=== PATIENT | female | born 1950 | race Caucasian/White ===

== ENCOUNTER → 2017-04-20 | Outpatient (CLI) | payer MEDICARE, BC ==
[2017-02-08 09:00] VITALS: BP 177/90
[~2017-04-20] MED LIST: ACET-704 PO; ACET500T68 PO; ASCO60LO PO; AZIT200S4 PO; AZIT250T6 PO; BACL10TA PO; CHOL200074 PO; CRAN1CAP13 PO; CRAN400C PO; DIAZ2TAB PO; DIAZ2TAB3 PO; DILT30TA PO; DILT60TA PO; DILT60TA3 PO; DOCU-109 PO; DORN1SOL IH; ESTR-9 TD; ESTR1PAT67 TD; FAMO-63 PO; FAMO40TA57 PO; HYDR-2758 PO; HYDR1TAB12 PO; LEVALBUTER0.63 MG/3 IH; LEVE100S8 PO; LEVE500T56 PO; LEVO500T59 PO; METH4TAB2 PO; METO-239 PO; METO25TA4 PO; MODA200T31 PO; MULT-208 PO; NA P RC; NITR50CA PO; NORE0.356 PO; NYST60PO TP; PARO10OR3 PO; POLY17PO29 PO; PRAV20TA2 PO; SCOP1PAT TD; SILV480G TP; TIOT18CA IH; VIT1TABL65 PO; XOPENEX0.63 MG/3 NEB; [UNRECOGNIZED DRUG - CODE] PO
--- NOTE | 2017-04-20 15:06 | RAD ---
Ultrasound kidneys Indication: Neurogenic bladder Technique: Grayscale and color Doppler images of the kidneys. Comparison: None Findings: Right kidney is surgically absent. Left kidney demonstrates manager specialty hypertrophy and measures 15.5 x 5.0 x 6.6 cm. The corticomedullary differentiation is preserved. Bladder is nondistended limiting evaluation. No abnormal findings in the right renal fossa. Impression: Status post right nephrectomy. Left kidney within normal limits. Suboptimal evaluation of bladder due to nondistention.
== END | disposition home or self-care (01) ==
LOC: US 13:46
PROVIDERS: ATTEND Urology
DX: N31.2 Flaccid neuropathic bladder, not elsewhere classified (principal); Z90.5 Acquired absence of kidney
CPT/HCPCS: 76775

== ENCOUNTER → 2017-04-20 | Outpatient (CLI) | payer MEDICARE, BC ==
[2017-02-08 09:00] VITALS: BP 177/90
[~2017-04-20] MED LIST changes: +GADOBUTROL 7.5 MMOL/7.5 ML VIAL IV ONE
--- NOTE | 2017-04-20 16:28 | RAD ---
MR of the skeletal pelvis with and without contrast HISTORY: Open decubitus ulcer with known infection on the left. TECHNIQUE: Routine multiplanar sequences are obtained. FINDINGS: There is a soft tissue defect in the left posterior decubitus region compatible with the patient's known ulcer. There is a small fluid pocket deep to this defect and extending to the cortical surface of the left ischium. This measures 2.5 cm x 3.2 cm x 2.4 cm. The cortex at this aspect of the ischium is poorly defined, and there is mild marrow edema. There is subtle loss of fatty marrow signal on the T1-weighted sequences, and findings are suspicious for mild osteomyelitis. There is a small linear signal abnormality at the right decubitus region extending to the ischium could represent an old ulcer or scarring. No abscess or bone destruction on the right. There is metal artifact at the anterior aspect of the right pelvis No significant hip effusion. The visualized major tendon attachments appear intact. The urinary bladder contains a Smalls catheter. Barely visualized lower lumbar spine demonstrates spondylosis. IMPRESSION: Left decubitus ulcer with an underlying small fluid collection or abscess. This collection extends to the cortical surface of the ischium where findings are suspicious for mild osteomyelitis. Electronically signed by: Juan Pablo Dsouza MD (04/20/2017 4:26 PM) [facility]
== END | disposition home or self-care (01) ==
LOC: MRI 14:19
PROVIDERS: ATTEND Surgery
DX: E11.622 Type 2 diabetes mellitus with other skin ulcer (principal); L98.499 Non-pressure chronic ulcer of skin of other sites with unspecified severity; M47.896 Other spondylosis, lumbar region
CPT/HCPCS: 72195

== ENCOUNTER 2017-07-18 12:46 | Emergency (ER) | payer MEDICARE, BC ==
[2017-07-18 13:20] LABS: BILIRUBIN,URINE NEGATIVE (NEG); GLUCOSE,URINE NEGATIVE (NEG); NITRITE,URINE NEGATIVE (NEG); PROTEIN,URINE 30 mg/dL (NEG-TRACE); UROBILINOGEN,URINE 0.2 mg/dL (0.2 mg/dL)
[2017-07-18 13:35] LABS: BACTERIA,URINE MODERATE /HPF (0-FEW); WBC,URINE TNTC /HPF (0-4)
[2017-07-18 15:06] LABS: ADD MAN DIFF? NO
[2017-07-18 15:18] LABS: BASO # 0.1 x10^3/uL (0.0-0.2); BASO % 1 % (0-3); EOS % 2 % (0-3); HEMATOCRIT 37.6 % (36.0-47.0); HEMOGLOBIN 12.2 g/dL (12.0-15.5); LYMPH # 1.2 x10^3/uL (1.0-4.8); LYMPH % 15 % (24-48); MEAN CORPUSCULAR HEMOGLOBIN 28 pg (25-35); MEAN CORPUSCULAR HGB CONC 32 g/dL (31-37); MEAN CORPUSCULAR VOLUME 86 fL (79-100); MONO % 6 % (0-9); NEUT % 76 % (31-73); PLATELET COUNT 445 x10^3/uL (140-400); RED BLOOD COUNT 4.39 x10^6/uL (3.50-5.40); RED CELL DISTRIBUTION WIDTH 15.3 % (11.5-14.5); WHITE BLOOD COUNT 8.2 x10^3/uL (4.0-11.0)
[2017-07-18 15:23] LABS: ANION GAP 6 (6-14); BLOOD UREA NITROGEN 31 mg/dL (7-20); BUN/CREATININE RATIO 103 (6-20); CALCIUM 9.8 mg/dL (8.5-10.1); CARBON DIOXIDE 34 mmol/L (21-32); CHLORIDE 101 mmol/L (98-107); CREATININE 0.3 mg/dL (0.6-1.0); GFR 223.3; GLUCOSE 111 mg/dL (70-99); POTASSIUM 4.5 mmol/L (3.5-5.1); SODIUM 141 mmol/L (136-145)
[2017-07-18 15:29] LABS: ALBUMIN 2.6 g/dL (3.4-5.0); ALBUMIN/GLOBULIN RATIO 0.4 (1.0-1.7); ALK PHOS 80 U/L (46-116); ALT (SGPT) 23 U/L (14-59); AST (SGOT) 20 U/L (15-37); TOTAL BILIRUBIN 0.2 mg/dL (0.2-1.0); TOTAL PROTEIN 8.4 g/dL (6.4-8.2)
[2017-07-18 15:47] LABS: TROPONINI < 0.017 ng/mL (0.000-0.055)
== END 2017-07-18 18:38 | disposition home or self-care (01) ==
LOC: ER 12:46
DX: R09.02 Hypoxemia (principal); R07.89 Other chest pain; R22.2 Localized swelling, mass and lump, trunk; I10 Essential (primary) hypertension; G35 Multiple sclerosis; Z93.0 Tracheostomy status; Z93.3 Colostomy status
CPT/HCPCS: 36415; 71010; 80053; 81001; 84484; 85025; 87086; 93005; 99285-25

== ENCOUNTER 2017-09-23 10:51 | Emergency (ER) | payer MEDICARE, BC ==
[2017-09-23] MEDS: BACITRACIN TOPICAL OINT 14GM TUBE. TP (12:29)
== END 2017-09-23 13:37 | disposition home or self-care (01) ==
LOC: ER 10:51
DX: K94.22 Gastrostomy infection (principal); L03.311 Cellulitis of abdominal wall; I10 Essential (primary) hypertension; Z93.0 Tracheostomy status; Z90.49 Acquired absence of other specified parts of digestive tract
CPT/HCPCS: 99283

== ENCOUNTER 2018-01-06 14:19 | Emergency (ER) | payer MEDICARE, BC ==
[2018-01-06 15:31] LABS: BASE EXCESS ABG 7 mmol/L (-3-3); HCO3 ABG 32 mmol/L (21-28); PO2 ABG 59 mmHg (65-108); SAT O2 ABG 92 % (92-99)
[2018-01-06 15:50] LABS: PCO2 ABG 51 mmHg (35-46); PH ABG 7.42 (7.35-7.45)
[2018-01-06 16:11] LABS: ADD MAN DIFF? NO
[2018-01-06 16:15] LABS: BASO % 1 % (0-3); EOS # 0.2 x10^3/uL (0.0-0.7); EOS % 3 % (0-3); HEMATOCRIT 40.5 % (36.0-47.0); HEMOGLOBIN 13.4 g/dL (12.0-15.5); LYMPH # 1.3 x10^3/uL (1.0-4.8); LYMPH % 20 % (24-48); MEAN CORPUSCULAR HEMOGLOBIN 29 pg (25-35); MEAN CORPUSCULAR HGB CONC 33 g/dL (31-37); MEAN CORPUSCULAR VOLUME 88 fL (79-100); MONO # 0.5 x10^3/uL (0.0-1.1); MONO % 7 % (0-9); NEUT # 4.6 x10^3uL (1.8-7.7); NEUT % 70 % (31-73); PLATELET COUNT 312 x10^3/uL (140-400); RED BLOOD COUNT 4.59 x10^6/uL (3.50-5.40); RED CELL DISTRIBUTION WIDTH 15.9 % (11.5-14.5); WHITE BLOOD COUNT 6.6 x10^3/uL (4.0-11.0)
[2018-01-06 16:25] LABS: PROTHROMBIN TIME PATIENT 12.4 SEC (11.7-14.0)
[2018-01-06 16:26] LABS: ANION GAP 5 (6-14); BLOOD UREA NITROGEN 31 mg/dL (7-20); BUN/CREATININE RATIO 78 (6-20); CALCIUM 9.4 mg/dL (8.5-10.1); CARBON DIOXIDE 36 mmol/L (21-32); CHLORIDE 100 mmol/L (98-107); CREATININE 0.4 mg/dL (0.6-1.0); GFR 159.7; GLUCOSE 129 mg/dL (70-99); SODIUM 141 mmol/L (136-145)
[2018-01-06 16:36] LABS: TROPONINI < 0.017 ng/mL (0.000-0.055)
[2018-01-06 16:38] LABS: ALBUMIN 3.4 g/dL (3.4-5.0); ALBUMIN/GLOBULIN RATIO 0.7 (1.0-1.7); ALK PHOS 65 U/L (46-116); ALT (SGPT) 40 U/L (14-59); AST (SGOT) 24 U/L (15-37); TOTAL BILIRUBIN 0.3 mg/dL (0.2-1.0); TOTAL PROTEIN 8.3 g/dL (6.4-8.2)
[2018-01-06 16:38] LABS: NT-PRO BNP 22 pg/mL (0-124)
[2018-01-06 16:43] LABS: LACTIC ACID 2.1 mmol/L (0.4-2.0)
== END 2018-01-06 18:11 | disposition home or self-care (01) ==
LOC: ER 14:19
DX: R09.02 Hypoxemia (principal); G35 Multiple sclerosis; I10 Essential (primary) hypertension; Z87.09 Personal history of other diseases of the respiratory system; Z93.3 Colostomy status; Z93.0 Tracheostomy status
CPT/HCPCS: 36415; 36600; 71045; 80053; 82805; 83605; 83880; 84484; 85025; 85610; 93005; 99285-25

== ENCOUNTER 2018-02-24 09:55 | Outpatient (CLI) | payer MEDICARE, BC ==
[2018-02-24] MEDS ORDERED: LIDOCAINE WITH 8.4% SOD BICARB 3 ML DISP.SYRIN. (11:34)
[2018-02-24] MEDS ORDERED: IOHEXOL 240 MG/ML 50ML VIAL. (11:34)
[2018-02-24] MEDS: IOHEXOL 240 MG/ML 50ML VIAL. IJ (11:43)
[2018-02-24] MEDS ORDERED: CONTRAST GIVEN. MC (11:45)
== END 2018-02-24 12:11 | disposition home or self-care (01) ==
LOC: INTRAD 09:55
DX: Z46.59 Encounter for fitting and adjustment of other gastrointestinal appliance and device (principal); I10 Essential (primary) hypertension; E78.00 Pure hypercholesterolemia, unspecified; I48.91 Unspecified atrial fibrillation; F03.90 Unspecified dementia, unspecified severity, without behavioral disturbance, psychotic disturbance, mood disturbance, and anxiety; H35.00 Unspecified background retinopathy; G35 Multiple sclerosis; Z87.01 Personal history of pneumonia (recurrent); Z93.0 Tracheostomy status; Z90.49 Acquired absence of other specified parts of digestive tract; Z87.440 Personal history of urinary (tract) infections; Z90.5 Acquired absence of kidney; F32.9 Major depressive disorder, single episode, unspecified; Z86.14 Personal history of Methicillin resistant Staphylococcus aureus infection; Z82.49 Family history of ischemic heart disease and other diseases of the circulatory system; Z79.2 Long term (current) use of antibiotics; Z79.899 Other long term (current) drug therapy; Z93.3 Colostomy status
CPT/HCPCS: 49450; C1769; Q9966

== ENCOUNTER 2018-10-25 17:23 | Inpatient (IN) | payer MEDICARE, BC ==
[~2018-10-25] VITALS: Ht 157.5 cm; Wt 69.5 kg
[~2018-10-25 17:23] MED LIST changes: +CEPH250S30 PO; -GADOBUTROL 7.5 MMOL/7.5 ML VIAL IV ONE; -HYDR-2758 PO; +HYDR-2761 PO; -HYDR1TAB12 PO; +HYDR1TAB13 PO; +LEVO750T31 PO; -SCOP1PAT TD; +SCOP1PAT11 TD
[2018-10-25] MEDS ORDERED: IV NORMAL SALINE 1000ML BAG 1,000 ML IV SCH (17:28)
[2018-10-25] MEDS ORDERED: IPRATRPIUM/ALBUTEROL 0.5/2.5MG 3 ML NEBU. NEB ONE (17:30)
[2018-10-25] MEDS ORDERED: methylPREDNISolone SOD SUCC PF 125 MG/2 ML VIAL. IV ONE (17:30)
[2018-10-25 17:46] LABS: BASO % 1 % (0-3); EOS % 0 % (0-3); HEMOGLOBIN 13.3 g/dL (12.0-15.5); LYMPH # 0.7 x10^3/uL (1.0-4.8); LYMPH % 10 % (24-48); MEAN CORPUSCULAR HEMOGLOBIN 30 pg (25-35); MEAN CORPUSCULAR HGB CONC 32 g/dL (31-37); MEAN CORPUSCULAR VOLUME 95 fL (79-100); MONO # 0.5 x10^3/uL (0.0-1.1); MONO % 6 % (0-9); NEUT # 6.1 x10^3uL (1.8-7.7); NEUT % 83 % (31-73); PLATELET COUNT 271 x10^3/uL (140-400); RED BLOOD COUNT 4.42 x10^6/uL (3.50-5.40); RED CELL DISTRIBUTION WIDTH 15.1 % (11.5-14.5); WHITE BLOOD COUNT 7.4 x10^3/uL (4.0-11.0)
[2018-10-25 17:58] LABS: BLOOD UREA NITROGEN 24 mg/dL (7-20); BUN/CREATININE RATIO 80 (6-20); CALCIUM 9.4 mg/dL (8.5-10.1); CHLORIDE 97 mmol/L (98-107); CREATININE 0.3 mg/dL (0.6-1.0); GFR 221.9; GLUCOSE 152 mg/dL (70-99); POTASSIUM 4.2 mmol/L (3.5-5.1); SODIUM 144 mmol/L (136-145)
[2018-10-25 18:03] LABS: CARBON DIOXIDE > 45 mmol/L (21-32)
[2018-10-25 18:03] LABS: BILIRUBIN,URINE NEGATIVE (NEG); CLARITY,URINE TURBID; COLOR,URINE RED; NITRITE,URINE POSITIVE (NEG); PROTEIN,URINE 100 mg/dL (NEG-TRACE)
[2018-10-25 18:04] LABS: ALBUMIN 3.1 g/dL (3.4-5.0); ALBUMIN/GLOBULIN RATIO 0.6 (1.0-1.7); ALK PHOS 82 U/L (46-116); ALT (SGPT) 21 U/L (14-59); AST (SGOT) 19 U/L (15-37); TOTAL BILIRUBIN 0.2 mg/dL (0.2-1.0)
--- NOTE | 2018-10-25 18:04 | PHYS DOC ---
Past Medical History Past Medical History: Hypertension, Other Additional Past Medical Histor: MS, respiratory failure, tracheostomy, excess secretions, possible seizures (COLBY IVERSON MD) Past Surgical History: Other Additional Past Surgical Histo: feeding tube,baclofen pump,flap surgeries, tracheostomy,COLOSTOMY, 1 kidney, (COLBY IVERSON MD) Alcohol Use: None Drug Use: None (COLBY IVERSON MD) Adult General Chief Complaint Chief Complaint: WEAKNESS/GENERALIZED HPI HPI Patient is a 68 year old female patient with history of advanced MS with tracheostomy tube in place brought in by EMS because of hypoxia and generalized weakness. Patient lives at home with high efficiency care from her mother called 911 today regarding hypoxia at 70s and decrease of orientation and alertness for the last 2 weeks. EMS reported that patient had O2 sat of 70s on 2 L of oxygen that improved to low 90s with 2 L of oxygen. Patient is nonverbal and unable to give history. (COLBY IVERSON MD) Review of Systems Review of Systems Unable to obtain because of nonverbal patient (COLBY IVERSON MD) Current Medications Current Medications Current Medications Medications (Trade) Dose Ordered Sig/Lidia Start Time Stop Time Status Last Admin Dose Admin Albuterol/ Ipratropium (Duoneb) 3 ml 1X ONCE 10/25/18 17:30 10/25/18 17:31 DC 10/25/18 17:53 3 ML Ceftriaxone Sodium (Rocephin) 1 gm 1X ONCE 10/25/18 19:00 10/25/18 19:02 DC 10/25/18 20:24 1 GM Methylprednisolone Sodium Succinate (SOLU-Medrol 125MG VIAL) 125 mg 1X ONCE 10/25/18 17:30 10/25/18 17:31 DC 10/25/18 19:04 125 MG Ondansetron HCl (Zofran) 4 mg PRN Q8HRS PRN 10/25/18 20:15 10/26/18 20:14 Sodium Chloride 1,000 ml @ 126 mls/hr [id number] 10/25/18 20:07 10/26/18 20:06 (JET SERRATO DO) Allergies Allergies Allergies Coded Allergies Type Severity Reaction Last Updated Verified No Known Drug Allergies 01/05/15 No (JET SERRATO DO) Physical Exam Physical Exam Constitutional: Well nourished, mild distress, non-toxic appearance, afebrile, nonverbal. [] HENT: Normocephalic, atraumatic Neck: Normal range of motion, tracheostomy tube in place, no tenderness, supple , no stridor. [] Cardiovascular:Heart rate regular rhythm, no murmur [] Lungs & Thorax: Bilateral rhonchi without respiratory distress Abdomen: Bowel sounds normal, soft, no tenderness, no masses, no pulsatile masses. [] Skin: Warm, dry, no erythema, no rash. [] Back: No tenderness, no CVA tenderness. [] Extremities: Not moving extremities Neurologic: Awake, nonverbal, (COLBY IVERSON MD) Current Patient Data Vital Signs Vital Signs Date Time Temp Pulse Resp B/P (MAP) Pulse Ox O2 Delivery O2 Flow Rate FiO2 10/25/18 18:03 97 Tracheal Collar 12.0 10/25/18 17:23 97.5 77 13 127/53 (77) 97.5 (JET SERRATO DO) Lab Values Laboratory Tests Test 10/25/18 17:35 10/25/18 17:52 10/25/18 19:48 White Blood Count 7.4 x10^3/uL (4.0-11.0) Red Blood Count 4.42 x10^6/uL (3.50-5.40) Hemoglobin 13.3 g/dL (12.0-15.5) Hematocrit 42.0 % (36.0-47.0) Mean Corpuscular Volume 95 fL (79-100) Mean Corpuscular Hemoglobin 30 pg (25-35) Mean Corpuscular Hemoglobin Concent 32 g/dL (31-37) Red Cell Distribution Width 15.1 % (11.5-14.5) H Platelet Count 271 x10^3/uL (140-400) Neutrophils (%) (Auto) 83 % (31-73) H Lymphocytes (%) (Auto) 10 % (24-48) L Monocytes (%) (Auto) 6 % (0-9) Eosinophils (%) (Auto) 0 % (0-3) Basophils (%) (Auto) 1 % (0-3) Neutrophils # (Auto) 6.1 x10^3uL (1.8-7.7) Lymphocytes # (Auto) 0.7 x10^3/uL (1.0-4.8) L Monocytes # (Auto) 0.5 x10^3/uL (0.0-1.1) Eosinophils # (Auto) 0.0 x10^3/uL (0.0-0.7) Basophils # (Auto) 0.0 x10^3/uL (0.0-0.2) Sodium Level 144 mmol/L (136-145) Potassium Level 4.2 mmol/L (3.5-5.1) Chloride Level 97 mmol/L (98-107) L Carbon Dioxide Level > 45 mmol/L (21-32) H Anion Gap (6-14) Blood Urea Nitrogen 24 mg/dL (7-20) H Creatinine 0.3 mg/dL (0.6-1.0) L Estimated GFR (Cockcroft-Gault) 221.9 BUN/Creatinine Ratio 80 (6-20) H Glucose Level 152 mg/dL (70-99) H Lactic Acid Level 1.8 mmol/L (0.4-2.0) Calcium Level 9.4 mg/dL (8.5-10.1) Total Bilirubin 0.2 mg/dL (0.2-1.0) Aspartate Amino Transferase (AST) 19 U/L (15-37) Alanine Aminotransferase (ALT) 21 U/L (14-59) Alkaline Phosphatase 82 U/L (46-116) Troponin I Quantitative < 0.017 ng/mL (0.000-0.055) ZK-Aoj-O-Type Natriuretic Peptide 48 pg/mL (0-124) Total Protein 8.0 g/dL (6.4-8.2) Albumin 3.1 g/dL (3.4-5.0) L Albumin/Globulin Ratio 0.6 (1.0-1.7) L Urine Collection Type U cath Urine Color Red Urine Clarity Turbid Urine pH 6.0 Urine Specific [place] 1.025 Urine Protein 100 mg/dL (NEG-TRACE) Urine Glucose (UA) Negative mg/dL (NEG) Urine Ketones (Stick) Trace mg/dL (NEG) Urine Blood Large (NEG) Urine Nitrite Positive (NEG) Urine Bilirubin Negative (NEG) Urine Urobilinogen Dipstick 1.0 mg/dL (0.2 mg/dL) Urine Leukocyte Esterase Large (NEG) Urine RBC Tntc /HPF (0-2) Urine WBC >40 /HPF (0-4) Urine Squamous Epithelial Cells None /LPF Urine Bacteria Many /HPF (0-FEW) O2 Saturation 91 % (92-99) L Arterial Blood pH 7.34 (7.35-7.45) L Arterial Blood pH (Temp corrected) 7.35 Arterial Blood pCO2 at Patient Temp 106 mmHg (35-46) *H Arterial Blood pCO2 (Temp correct) 103 mmHg Arterial Blood pO2 at Patient Temp 64 mmHg (65-108) L Arterial Blood pO2 (Temp corrected) 61 mmHg Arterial Blood HCO3 56 mmol/L (21-28) H Arterial Blood Base Excess 24 mmol/L (-3-3) H FiO2 50 Laboratory Tests 10/25/18 17:35 Laboratory Tests 10/25/18 17:35 (JET SERRATO DO) EKG EKG [] (COLBY IVERSON MD) Radiology/Procedures Radiology/Procedures [] (COLBY IVERSON MD) Impressions: STATUS: REG ERORD. PHYSICIAN: COLBY IVERSON MD REASON: shortness of breath and hypoxia PROCEDURE: PORTABLE CHEST 1V PORTABLE CHEST 1V Clinical Indication: ER PATIENT. WEAKNESS, SHORTNESS OF AIR, ALTERED MENTAL STATUS. Hx TRACHEOSTOMY, HTN. Comparison: AP chest, January 06. Findings: Tracheostomy is in stable position. There are low lung volumes. The cardiomediastinal silhouette is stable. There are moderate bilateral pleural effusions. There is mild pulmonary vascular congestion. There are bilateral lower lobe airspace opacities. No pneumothorax. Bones appear stable. IMPRESSION: 1. Low lung volumes. 2. Moderate bilateral pleural effusions. Bilateral lower lobe airspace disease. 3. Mild pulmonary vascular congestion. (JET SERRATO DO) Course & Med Decision Making Course & Med Decision Making Pertinent Labs and Imaging studies are pending. Evaluation of patient in ER showed 68-year-old female patient with history of advanced MS brought in by EMS because of hypoxia and decrease of orientation. Patient care transferred to Dr. Serrato at 1800. (COLBY IVERSON MD) Course & Med Decision Making CRITICAL CARE: Time spent was 35 minutes. This includes medical management, evaluation, reevaluation, discussion with consultants and family. Critical Care does NOT include time spent on separately billed procedures. Patient had an ABG performed which showed a CO2 of greater than 100 then the uncuffed trach was treated out with a 4 uncuffed trach however we were unable to get appropriate tidal volumes on the ventilator so we will need to try a 5. We were unsuccessful getting 6 cuffed trach in (JET SERRATO DO) Dragon Disclaimer Dragon Disclaimer This electronic medical record was generated, in whole or in part, using a voice recognition dictation system. (COLBY IVERSON MD) Departure Departure Impression: Primary Impression: Hypercapnic respiratory failure Additional Impression: Altered mental status Disposition: ADMITTED INPATIENT Admitting Physician: Kiki Mosquera (JET SERRATO DO) Condition: GRAVE Referrals: JESSICA PAINTING MD (PCP) Problem Qualifiers Primary Impression: Hypercapnic respiratory failure Chronicity: acute on chronic Qualified Codes: J96.22 - Acute and chronic respiratory failure with hypercapnia Additional Impression: Altered mental status Altered mental status type: unspecified Qualified Codes: R41.82 - Altered mental status, unspecified COLBY IVERSON MD Oct 25, 2018 18:04 JET SERRATO DO Oct 25, 2018 20:38
[2018-10-25 18:14] LABS: BACTERIA,URINE MANY /HPF (0-FEW); RBC,URINE TNTC /HPF (0-2); WBC,URINE >40 /HPF (0-4)
[2018-10-25] MEDS ORDERED: cefTRIAXone IV Push 1 GM VIAL. IVP ONE (19:00)
--- NOTE | 2018-10-25 19:20 | RAD ---
PORTABLE CHEST 1V Clinical Indication: ER PATIENT. WEAKNESS, SHORTNESS OF AIR, ALTERED MENTAL STATUS. Hx TRACHEOSTOMY, HTN. Comparison: AP chest, January 06. Findings: Tracheostomy is in stable position. There are low lung volumes. The cardiomediastinal silhouette is stable. There are moderate bilateral pleural effusions. There is mild pulmonary vascular congestion. There are bilateral lower lobe airspace opacities. No pneumothorax. Bones appear stable. IMPRESSION: 1. Low lung volumes. 2. Moderate bilateral pleural effusions. Bilateral lower lobe airspace disease. 3. Mild pulmonary vascular congestion. Electronically signed by: Jr Paniagua MD (10/25/2018 7:17 PM) [facility]
[2018-10-25 19:49] LABS: BASE EXCESS ABG 24 mmol/L (-3-3); CORRECTED PCO2 ABG 103 mmHg; CORRECTED PH ABG 7.35; CORRECTED PO2 ABG 61 mmHg; HCO3 ABG 56 mmol/L (21-28); SAT O2 ABG 91 % (92-99)
[2018-10-25 20:02] LABS: FIO2 ABG 50; PCO2 ABG 106 mmHg (35-46); PO2 ABG 64 mmHg (65-108)
[2018-10-25] MEDS: IV NORMAL SALINE 1000ML BAG 1,000 ML IV SCH (20:07)
[2018-10-25] MEDS ORDERED: ONDANSETRON PF 4 MG/2 ML VIAL. IV PRN (20:15)
[2018-10-25 22:00] VITALS: BP 160/76
[2018-10-25 22:15] VITALS: BP 135/85
[2018-10-25 22:30] VITALS: BP 109/67
[2018-10-25 22:45] VITALS: BP 106/68
[2018-10-25 23:00] VITALS: BP 110/63
--- NOTE | 2018-10-25 23:58 | HP ---
ADMIT DATE: 10/25/2018 CHIEF COMPLAINT: Respiratory failure and weakness, mental status change. 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 I have taken care of her for several years off and on. She has got a tracheostomy. She is very ill, has been for some time. She technically has even qualified for hospice at times, but she surprises us and bounces back. Today, she has had generalized weakness. Her takes care of her. She has been unconscious, not breathing well. Her called EMS. She had O2 sat of 70%. They brought her to the ER. Her CO2 level is 105. She has CO2 narcosis. I discussed the case with the ER physician. We have placed the patient on hyperventilation. We are going to consult Pulmonary. We are going to try to blow off some of the CO2. PAST MEDICAL HISTORY: Advanced multiple sclerosis, tracheostomy, seizures, PEG tube, baclofen pump, flap surgeries, colostomy, one kidney. ALLERGIES: None. FAMILY HISTORY: Hypertension. SOCIAL HISTORY: She does not drink, smoke or take drugs. She is . 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 MEDICATIONS: Reviewed. She is on azithromycin, Spiriva, Xopenex, baclofen, metoprolol, diltiazem, Tylenol, Keppra, Paxil, Provigil, Valium, scopolamine, Pepcid, vitamins, probiotic, estradiol. REVIEW OF SYSTEMS: Unable to obtain. The patient is unconscious at this time. PHYSICAL EXAMINATION: VITAL SIGNS: Temperature is afebrile, pulse 80, respirations currently set at 20 on the vent, blood pressure is 127/53, O2 sat is 94% on 15 liters. GENERAL: She is somnolent, not waking up right now. Her CO2 level was quite high. Her is present. HEART: Distant S1, S2. LUNGS: Surprisingly clear. ABDOMEN: Soft. There is an ostomy. EXTREMITIES: 2+ edema. ENDOCRINE: No thyromegaly. LYMPHATICS: No cervical nodes. HEMATOPOIETIC: No bruising. NEUROLOGICAL: She unconscious at this time. LABORATORY DATA: Hematology is normal. Electrolytes: Sodium 144, potassium 4.2, chloride 97, bicarbonate 45, BUN 24, creatinine 0.3, glucose 132. Troponin is 0. The pH is 7.34 with a pCO2 of 106, pO2 of 103. Chest x-ray mainly shows a poor inspiratory effort with low lung volumes and moderate pleural effusions and bilateral lower lobe airspace density and mild pulmonary vascular congestion. ASSESSMENT AND PLAN: Fall and respiratory failure, multifactorial including probable progression of her MS, heart failure and pneumonia. The patient has been admitted. We will consult Cardiology and Pulmonary. Try to hyperventilate her. Frequent labs. Resume her home meds, DVT prophylaxis. Full code per her . Prognosis long-term is terminal, but again she has a tendency to surprise us, but her quality of life is quite poor at this point. RIGOBERTO VORA DO DR: ROCCO/larry JOB#: [id number] / [id number]
[2018-10-26] VITALS (23 sets, daily range): BP systolic 105–176; BP diastolic 60–81
[2018-10-26 00:07] LABS: BASE EXCESS ABG 14 mmol/L (-3-3); HCO3 ABG 38 mmol/L (21-28); PCO2 ABG 46 mmHg (35-46); PO2 ABG 55 mmHg (65-108); SAT O2 ABG 92 % (92-99)
[2018-10-26] MEDS ORDERED: DILT30TA26 PO (03:09)
--- NOTE | 2018-10-26 03:41 | NUR ---
Patient arrived on unit at 2152 accompanied by ED RN, RT, and family member. Patient's , Maximino, was able to answer admission questions given that patient is non-verbal. Patient's wounds pictured. According to , the G-tube is for feedings (bolus feedings of diabetisource ac, 500 cc TID with 100 cc water flushes q3 hrs), and the PEG tube is for enemas that the patient receives every Thursday and . The PEG tube is in the colostomy bag due to increased skin breakdown around the tube itself. Suprapubic catheter was placed in 05/2018 and catheter changed 10/24/18. Titrating down FIO2 slowly. AVAPS changed upon arrival to unit based on ABG drawn before transfer. Sepsis screen was negative. Will continue to monitor.
[2018-10-26] MEDS: IV NORMAL SALINE 1000ML BAG 1,000 ML IV SCH (04:04)
[2018-10-26] MEDS ORDERED: ACETAMINOPHEN 650 MG/20.3 ML SOLUTION. PEG ONE (04:30)
[2018-10-26 05:57] LABS: FIO2 ABG 60
--- NOTE | 2018-10-26 06:41 | EKG ---
[facility] [address] [place] [address] Test Date: 2018-10-25 Test Time: 19:14:11 Pat Name: MINNIE BENZ Department: Room: 112 1 Gender: F Mosaic Floor Layer: HAO : 1950 Requested By: COLBY IVERSON Order Number: [id number] Reading MD: Jeremy Blue MD Measurements Intervals Evans Rate: 82 P: 36 UT: 128 QRS: 14 QRSD: 76 T: 26 QT: 364 QTc: 428 Interpretive Statements SINUS RHYTHM Electronically Signed On 10-28-2018 9:50:45 CDT by Jeremy Blue MD
--- NOTE | 2018-10-26 07:11 | NUR ---
Patient spiked a fever at 0400 assessment. LA and second BC drawn stat. Repeat lactic was elevated. Dr. Demetri altman, received orders. Will continue to monitor.
[2018-10-26] MEDS ORDERED: PIP/TAZO PER PHARMACY MC PRN (07:15)
[2018-10-26] MEDS ORDERED: VANCOMYCIN 1.75 GM in IV NORMAL SALINE 500ML BAG 500 ML IV ONE (08:00)
[2018-10-26] MEDS: PIPERACILLIN/TAZOBACTAM 3.375 GM in IV NORMAL SALINE 50ML 50 ML IV SCH ×4 (08:43→23:35)
--- NOTE | 2018-10-26 08:46 | PDOC ---
Infectious Disease Note Vital Sign Vital Signs Vital Signs Date Time Temp Pulse Resp B/P (MAP) Pulse Ox O2 Delivery O2 Flow Rate FiO2 10/26/18 07:46 12.0 10/26/18 07:42 Bi-pap 10/26/18 07:00 99.4 99 12 141/69 (93) 97 99.4 Labs Lab Laboratory Tests Test 10/25/18 17:35 10/25/18 17:52 10/25/18 19:48 10/25/18 21:53 White Blood Count 7.4 x10^3/uL (4.0-11.0) Red Blood Count 4.42 x10^6/uL (3.50-5.40) Hemoglobin 13.3 g/dL (12.0-15.5) Hematocrit 42.0 % (36.0-47.0) Mean Corpuscular Volume 95 fL (79-100) Mean Corpuscular Hemoglobin 30 pg (25-35) Mean Corpuscular Hemoglobin Concent 32 g/dL (31-37) Red Cell Distribution Width 15.1 % (11.5-14.5) Platelet Count 271 x10^3/uL (140-400) Neutrophils (%) (Auto) 83 % (31-73) Lymphocytes (%) (Auto) 10 % (24-48) Monocytes (%) (Auto) 6 % (0-9) Eosinophils (%) (Auto) 0 % (0-3) Basophils (%) (Auto) 1 % (0-3) Neutrophils # (Auto) 6.1 x10^3uL (1.8-7.7) Lymphocytes # (Auto) 0.7 x10^3/uL (1.0-4.8) Monocytes # (Auto) 0.5 x10^3/uL (0.0-1.1) Eosinophils # (Auto) 0.0 x10^3/uL (0.0-0.7) Basophils # (Auto) 0.0 x10^3/uL (0.0-0.2) Sodium Level 144 mmol/L (136-145) Potassium Level 4.2 mmol/L (3.5-5.1) Chloride Level 97 mmol/L (98-107) Carbon Dioxide Level > 45 mmol/L (21-32) Anion Gap (6-14) Blood Urea Nitrogen 24 mg/dL (7-20) Creatinine 0.3 mg/dL (0.6-1.0) Estimated GFR (Cockcroft-Gault) 221.9 BUN/Creatinine Ratio 80 (6-20) Glucose Level 152 mg/dL (70-99) Lactic Acid Level 1.8 mmol/L (0.4-2.0) Calcium Level 9.4 mg/dL (8.5-10.1) Total Bilirubin 0.2 mg/dL (0.2-1.0) Aspartate Amino Transf (AST/SGOT) 19 U/L (15-37) Alanine Aminotransferase (ALT/SGPT) 21 U/L (14-59) Alkaline Phosphatase 82 U/L (46-116) Troponin I Quantitative < 0.017 ng/mL (0.000-0.055) GD-Nyo-S-Type Natriuretic Peptide 48 pg/mL (0-124) Total Protein 8.0 g/dL (6.4-8.2) Albumin 3.1 g/dL (3.4-5.0) Albumin/Globulin Ratio 0.6 (1.0-1.7) Urine Collection Type U cath Urine Color Red Urine Clarity Turbid Urine pH 6.0 Urine Specific [place] 1.025 Urine Protein 100 mg/dL (NEG-TRACE) Urine Glucose (UA) Negative mg/dL (NEG) Urine Ketones (Stick) Trace mg/dL (NEG) Urine Blood Large (NEG) Urine Nitrite Positive (NEG) Urine Bilirubin Negative (NEG) Urine Urobilinogen Dipstick 1.0 mg/dL (0.2 mg/dL) Urine Leukocyte Esterase Large (NEG) Urine RBC Tntc /HPF (0-2) Urine WBC >40 /HPF (0-4) Urine Squamous Epithelial Cells None /LPF Urine Bacteria Many /HPF (0-FEW) O2 Saturation 91 % (92-99) 92 % (92-99) Arterial Blood pH 7.34 (7.35-7.45) 7.54 (7.35-7.45) Arterial Blood pH (Temp corrected) 7.35 Arterial Blood pCO2 at Patient Temp 106 mmHg (35-46) 46 mmHg (35-46) Arterial Blood pCO2 (Temp correct) 103 mmHg Arterial Blood pO2 at Patient Temp 64 mmHg (65-108) 55 mmHg (65-108) Arterial Blood pO2 (Temp corrected) 61 mmHg Arterial Blood HCO3 56 mmol/L (21-28) 38 mmol/L (21-28) Arterial Blood Base Excess 24 mmol/L (-3-3) 14 mmol/L (-3-3) FiO2 50 60 Test 10/26/18 04:40 Lactic Acid Level 3.8 mmol/L (0.4-2.0) Objective Assessment Fever Hypoxia Hypercapnic respiratory failure MS Plan Plan of Care panculture vanc and zosyn supportive care check cultures DARWIN PITTS MD Oct 26, 2018 08:46
--- NOTE | 2018-10-26 08:50 | PDOC2 ---
RAMANA GARRISON ACID REMOVER 10/26/18 0850: CARDIAC CONSULT DATE OF CONSULT Date of Consult DATE: 10/26/18 TIME: 08:35 REASON FOR CONSULT Reason for Consult: CHF REFERRING PHYSICIAN Referring Physician: Demetri SOURCE Source: Chart review HISTORY OF PRESENT ILLNESS HISTORY OF PRESENT ILLNESS This is a 68 yo female with advanced multiple sclerosis. Complains is primarily hypoxia and increasing weakness as noted by EMS as well with O2 sat in the 70s. She has chronic respiratory failure with trach in place. Upon admission she has been noted with fever with decreased mentation. She is significatly debilitate and unable to communicate. She does not have any significant hx of heart disease. PAST MEDICAL HISTORY Cardiovascular: AFIB CENTRAL NERVOUS SYSTEM: Dementia, Seizure, Other (advance multiple sclerosisx) GI: GERD Psych: Anxiety Musculoskeletal: Osteoarthritis Renal/: Other (neurogenic bladder) PAST SURGICAL HISTORY Past Surgical History: Other (baclofen pump, unilateral nephrectomy; suprapubic cath placement; peg, trach) FAMILY HISTORY Family History noncontributory SOCIAL HISTORY Smoke: No ALCOHOL: none Lives: with Family CURRENT MEDICATIONS CURRENT MEDICATIONS Current Medications Medications (Trade) Dose Ordered Sig/Lidia Route PRN Reason Start Time Stop Time Status Last Admin Dose Admin Sodium Chloride 1,000 ml @ 1,000 mls/hr Q1H IV 10/25/18 17:28 10/25/18 18:27 DC 10/25/18 19:04 Albuterol/ Ipratropium (Duoneb) 3 ml 1X ONCE NEB 10/25/18 17:30 10/25/18 17:31 DC 10/25/18 17:53 Methylprednisolone Sodium Succinate (SOLU-Medrol 125MG VIAL) 125 mg 1X ONCE IV 10/25/18 17:30 10/25/18 17:31 DC 10/25/18 19:04 Ceftriaxone Sodium (Rocephin) 1 gm 1X ONCE IVP 10/25/18 19:00 10/25/18 19:02 DC 10/25/18 20:24 Acetaminophen (Tylenol) 650 mg 1X ONCE PEG 10/26/18 04:30 10/26/18 04:32 DC 10/26/18 04:59 ALLERGIES ALLERGIES: Coded Allergies: No Known Drug Allergies (Unverified , 01/05/15) ROS Review of System unreliable PHYSICAL EXAM General: Alert, No acute distress HEENT: Atraumatic, Mucous membr. moist/pink Lungs: Other (diminished, vent with trach) Heart: Regular rate (SR), Other (distnat heart sounds) Abdomen: Soft Extremities: Other (generalized edema trace to 1+) Skin: Other (suprapubic cath, PEG tube in place, trach site intact) Neuro: Sensation intact MUSCULOSKELETAL: Other (debilitated with multiple contractures) VITALS VITALS Vital Signs Date Time Temp Pulse Resp B/P (MAP) Pulse Ox O2 Delivery O2 Flow Rate FiO2 10/26/18 07:46 12.0 10/26/18 07:42 Bi-pap 10/26/18 07:00 99.4 99 12 141/69 (93) 97 99.4 LABS Lab: Laboratory Tests Test 10/25/18 17:35 10/25/18 17:52 10/25/18 19:48 10/25/18 21:53 White Blood Count 7.4 x10^3/uL (4.0-11.0) Red Blood Count 4.42 x10^6/uL (3.50-5.40) Hemoglobin 13.3 g/dL (12.0-15.5) Hematocrit 42.0 % (36.0-47.0) Mean Corpuscular Volume 95 fL (79-100) Mean Corpuscular Hemoglobin 30 pg (25-35) Mean Corpuscular Hemoglobin Concent 32 g/dL (31-37) Red Cell Distribution Width 15.1 % (11.5-14.5) Platelet Count 271 x10^3/uL (140-400) Neutrophils (%) (Auto) 83 % (31-73) Lymphocytes (%) (Auto) 10 % (24-48) Monocytes (%) (Auto) 6 % (0-9) Eosinophils (%) (Auto) 0 % (0-3) Basophils (%) (Auto) 1 % (0-3) Neutrophils # (Auto) 6.1 x10^3uL (1.8-7.7) Lymphocytes # (Auto) 0.7 x10^3/uL (1.0-4.8) Monocytes # (Auto) 0.5 x10^3/uL (0.0-1.1) Eosinophils # (Auto) 0.0 x10^3/uL (0.0-0.7) Basophils # (Auto) 0.0 x10^3/uL (0.0-0.2) Sodium Level 144 mmol/L (136-145) Potassium Level 4.2 mmol/L (3.5-5.1) Chloride Level 97 mmol/L (98-107) Carbon Dioxide Level > 45 mmol/L (21-32) Anion Gap (6-14) Blood Urea Nitrogen 24 mg/dL (7-20) Creatinine 0.3 mg/dL (0.6-1.0) Estimated GFR (Cockcroft-Gault) 221.9 BUN/Creatinine Ratio 80 (6-20) Glucose Level 152 mg/dL (70-99) Lactic Acid Level 1.8 mmol/L (0.4-2.0) Calcium Level 9.4 mg/dL (8.5-10.1) Total Bilirubin 0.2 mg/dL (0.2-1.0) Aspartate Amino Transf (AST/SGOT) 19 U/L (15-37) Alanine Aminotransferase (ALT/SGPT) 21 U/L (14-59) Alkaline Phosphatase 82 U/L (46-116) Troponin I Quantitative < 0.017 ng/mL (0.000-0.055) OU-Vwu-T-Type Natriuretic Peptide 48 pg/mL (0-124) Total Protein 8.0 g/dL (6.4-8.2) Albumin 3.1 g/dL (3.4-5.0) Albumin/Globulin Ratio 0.6 (1.0-1.7) Urine Collection Type U cath Urine Color Red Urine Clarity Turbid Urine pH 6.0 Urine Specific [place] 1.025 Urine Protein 100 mg/dL (NEG-TRACE) Urine Glucose (UA) Negative mg/dL (NEG) Urine Ketones (Stick) Trace mg/dL (NEG) Urine Blood Large (NEG) Urine Nitrite Positive (NEG) Urine Bilirubin Negative (NEG) Urine Urobilinogen Dipstick 1.0 mg/dL (0.2 mg/dL) Urine Leukocyte Esterase Large (NEG) Urine RBC Tntc /HPF (0-2) Urine WBC >40 /HPF (0-4) Urine Squamous Epithelial Cells None /LPF Urine Bacteria Many /HPF (0-FEW) O2 Saturation 91 % (92-99) 92 % (92-99) Arterial Blood pH 7.34 (7.35-7.45) 7.54 (7.35-7.45) Arterial Blood pH (Temp corrected) 7.35 Arterial Blood pCO2 at Patient Temp 106 mmHg (35-46) 46 mmHg (35-46) Arterial Blood pCO2 (Temp correct) 103 mmHg Arterial Blood pO2 at Patient Temp 64 mmHg (65-108) 55 mmHg (65-108) Arterial Blood pO2 (Temp corrected) 61 mmHg Arterial Blood HCO3 56 mmol/L (21-28) 38 mmol/L (21-28) Arterial Blood Base Excess 24 mmol/L (-3-3) 14 mmol/L (-3-3) FiO2 50 60 Test 10/26/18 04:40 Lactic Acid Level 3.8 mmol/L (0.4-2.0) ECHOCARDIOGRAM ECHOCARDIOGRAM <Conclusion> The left ventricle is normal size. There is normal left ventricular wall thickness. Left ventricle systolic function is normal. The Ejection Fraction is 55-60%. The aortic valve is not well visualized. There is no significant aortic valvular stenosis. The mitral valve is normal in structure and function. Doppler and Color Flow revealed trace tricuspid regurgitation. The pulmonary artery systolic pressure is estimated at less than 30 mmHg. There is large pleural effusion. There is no evidence of significant pericardial effusion. DATE: 02/03/14 1605 ASSESSMENT/PLAN ASSESSMENT/PLAN 1. Possible sepsis with UTI/fever: ID following 2. Acute respiratory failure with pleural effusion which could be from pneumonia and/or potential effects of MS 3. Pleural effusion: induced by above. pro NT BNP at 48. No significant acute CHF. No arrhythmias 4. Urinary retention: r/t MS with suprapubic cath 5. Advance Multiple sclerosis with severe debility 6. Hx of AFIB? Unclear hx. Recommendations 1. Consult pulmonary, vent in place with chronic trach. 2. TTE today. 3. Supportive care. 4. Continue with BB and CCB. No AFIB so far. No noted ASA nor anticoagulation ASA 81 mg for stroke prevention. BEN VERDE MD 10/26/18 1251: CARDIAC CONSULT ASSESSMENT/PLAN ASSESSMENT/PLAN Patient seen and examined. Agree with REDUCING SYSTEM OPERATOR's assessment and plan Agree that clinical presentation not consistent with CHF especially with BNP level 48 2-D echo showed normal LV systolic function Continue treatment for acute on chronic respiratory failure per pulmonary team ID team following for possible sepsis Thank you for your consultation RAMANA GARRISON APRN Oct 26, 2018 08:50 BEN VERDE MD Oct 26, 2018 12:51
[2018-10-26 08:51] LABS: BASE EXCESS ABG 15 mmol/L (-3-3); HCO3 ABG 38 mmol/L (21-28); PCO2 ABG 40 mmHg (35-46); PO2 ABG 64 mmHg (65-108); SAT O2 ABG 95 % (92-99)
--- NOTE | 2018-10-26 10:00 | NUR ---
[address] raymundo faust. pt not to be given extra iv fluids as per dr faust and yonis bedolla. second lactic acid result 3.2.
--- NOTE | 2018-10-26 10:08 | CARD ---
MR#: [id number] Date of Study: 10/26/2018 Ordering Physician: RAMANA GARRISON, Referring Physician: RIGOBERTO VORA Tech: Francie Anders ASHLEY APPROVED REPORT EXAM: Two-dimensional and M-mode echocardiogram with Doppler and color Doppler. Other Information Quality : Good INDICATION Dyspnea 2D DIMENSIONS Left Atrium(2D)2.2 (1.6-4.0cm)IVSd1.2 (0.7-1.1cm) Aortic Root(2D)2.2 (2.0-3.7cm)LVDd2.7 (3.9-5.9cm) LVOT Diameter1.7 (1.8-2.4cm)PWd0.8 (0.7-1.1cm) LVDs1.8 (2.5-4.0cm)FS (%) 32.6 % SV16.7 mlLVEF(%)63.0 (>50%) Aortic Valve AoV Peak El.155.9cm/sAoV VTI25.0cm AO Peak GR.9.7mmHgLVOT VTI 23.63cm AO Mean GR.6mmHgAVA (VTI)2.10cm2 Mitral Valve MV E Veaizrxc62.5cm/sMV DECEL [id number] MV A Orzqjiyc28.6cm/sE/A Ratio0.8 TDI Lateral E' P. V6.37cm/sMedial E' P. V6.69cm/s E/Lateral E'12.5E/Medial E'11.9 Tricuspid Valve TR P. [id number]/sRAP [id number] TR Peak Gr.[id number] LEFT VENTRICLE The left ventricle is normal size. There is mild concentric left ventricular hypertrophy. The left ve ntricular systolic function is normal. The Ejection Fraction is 60-65%. There is normal LV segmental wall motion. Transmitral Doppler flow pattern is Grade I-abnormal relaxation pattern. RIGHT VENTRICLE The right ventricle is normal size. The right ventricular systolic function is normal. ATRIA The left atrium size is normal. The right atrium size is normal. The interatrial septum is intact wit h no evidence for an atrial septal defect or patent foramen ovale as noted on 2-D or Doppler imaging. AORTIC VALVE The aortic valve is not well visualized but appears to be functioning normally by Doppler interrogati on. Doppler and Color Flow revealed no significant aortic regurgitation. There is no significant aort ic valvular stenosis. MITRAL VALVE The mitral valve is calcified but opens well. There is no evidence of mitral valve prolapse. There is no mitral valve stenosis. Doppler and Color-flow revealed trace mitral regurgitation. TRICUSPID VALVE The tricuspid valve is normal in structure and function. Doppler and Color Flow revealed trace tricus pid regurgitation. There is moderate pulmonary hypertension. The PA pressure was estimated at 46 mmHg . There is no tricuspid valve stenosis. PULMONIC VALVE The pulmonic valve is not well visualized. Doppler and Color Flow revealed trace pulmonic valvular re gurgitation. There is no pulmonic valvular stenosis. GREAT VESSELS The aortic root is normal in size. The ascending aorta is normal in size. The IVC is normal in size a nd collapses <50% with inspiration. PERICARDIAL EFFUSION There is no evidence of significant pericardial effusion. Critical Notification Critical Value: No <Conclusion> The left ventricular systolic function is normal. The Ejection Fraction is 60-65%. There is normal LV segmental wall motion. Transmitral Doppler flow pattern is Grade I-abnormal relaxation pattern. Trace mitral regurgitation. Trace tricuspid regurgitation. There is moderate pulmonary hypertension. The PA pressure was estimated at 46 mmHg. There is no evidence of significant pericardial effusion. Signed by : Elmer Feliciano, Electronically Approved : 10/26/2018 10:07:32
--- NOTE | 2018-10-26 10:42 | PDOC ---
PROGRESS NOTES Chief Complaint Chief Complaint Acute on chronic respiratory failure Advanced multiple sclerosis, tracheostomy, history of seizures, PEG tube, baclofen pump, colostomy Plan: supportive measures wound care resume home meds farther recommendations based on clinical course. History of Present Illness History of Present Illness Patient on the mechanical ventilation tracheostomy in place unable to have conversation with the patient responding to verbal stimuli, no acute events reported overnight. She seems quite debilitated but this seems to be her baseline Vitals Vitals Vital Signs Date Time Temp Pulse Resp B/P (MAP) Pulse Ox O2 Delivery O2 Flow Rate FiO2 10/26/18 10:00 100 12 159/75 (103) 98 apap with trach 12.0 10/26/18 09:00 99.5 99.5 Physical Exam Physical Exam GENERAL: She is somnolent, not able to have a meaningful interaction HEART: Distant S1, S2. LUNGS: Surprisingly clear. ABDOMEN: Soft. There is an ostomy. EXTREMITIES: 2+ edema. ENDOCRINE: No thyromegaly. LYMPHATICS: No cervical nodes. HEMATOPOIETIC: No bruising. NEUROLOGICAL: chronic weakeness due to her underlying MS Lungs: Other Labs LABS Laboratory Tests Test 10/25/18 17:35 10/25/18 17:52 10/25/18 19:48 10/25/18 21:53 White Blood Count 7.4 x10^3/uL (4.0-11.0) Red Blood Count 4.42 x10^6/uL (3.50-5.40) Hemoglobin 13.3 g/dL (12.0-15.5) Hematocrit 42.0 % (36.0-47.0) Mean Corpuscular Volume 95 fL (79-100) Mean Corpuscular Hemoglobin 30 pg (25-35) Mean Corpuscular Hemoglobin Concent 32 g/dL (31-37) Red Cell Distribution Width 15.1 % (11.5-14.5) Platelet Count 271 x10^3/uL (140-400) Neutrophils (%) (Auto) 83 % (31-73) Lymphocytes (%) (Auto) 10 % (24-48) Monocytes (%) (Auto) 6 % (0-9) Eosinophils (%) (Auto) 0 % (0-3) Basophils (%) (Auto) 1 % (0-3) Neutrophils # (Auto) 6.1 x10^3uL (1.8-7.7) Lymphocytes # (Auto) 0.7 x10^3/uL (1.0-4.8) Monocytes # (Auto) 0.5 x10^3/uL (0.0-1.1) Eosinophils # (Auto) 0.0 x10^3/uL (0.0-0.7) Basophils # (Auto) 0.0 x10^3/uL (0.0-0.2) Sodium Level 144 mmol/L (136-145) Potassium Level 4.2 mmol/L (3.5-5.1) Chloride Level 97 mmol/L (98-107) Carbon Dioxide Level > 45 mmol/L (21-32) Anion Gap (6-14) Blood Urea Nitrogen 24 mg/dL (7-20) Creatinine 0.3 mg/dL (0.6-1.0) Estimated GFR (Cockcroft-Gault) 221.9 BUN/Creatinine Ratio 80 (6-20) Glucose Level 152 mg/dL (70-99) Lactic Acid Level 1.8 mmol/L (0.4-2.0) Calcium Level 9.4 mg/dL (8.5-10.1) Total Bilirubin 0.2 mg/dL (0.2-1.0) Aspartate Amino Transf (AST/SGOT) 19 U/L (15-37) Alanine Aminotransferase (ALT/SGPT) 21 U/L (14-59) Alkaline Phosphatase 82 U/L (46-116) Troponin I Quantitative < 0.017 ng/mL (0.000-0.055) RW-Zkf-T-Type Natriuretic Peptide 48 pg/mL (0-124) Total Protein 8.0 g/dL (6.4-8.2) Albumin 3.1 g/dL (3.4-5.0) Albumin/Globulin Ratio 0.6 (1.0-1.7) Urine Collection Type U cath Urine Color Red Urine Clarity Turbid Urine pH 6.0 Urine Specific [place] 1.025 Urine Protein 100 mg/dL (NEG-TRACE) Urine Glucose (UA) Negative mg/dL (NEG) Urine Ketones (Stick) Trace mg/dL (NEG) Urine Blood Large (NEG) Urine Nitrite Positive (NEG) Urine Bilirubin Negative (NEG) Urine Urobilinogen Dipstick 1.0 mg/dL (0.2 mg/dL) Urine Leukocyte Esterase Large (NEG) Urine RBC Tntc /HPF (0-2) Urine WBC >40 /HPF (0-4) Urine Squamous Epithelial Cells None /LPF Urine Bacteria Many /HPF (0-FEW) O2 Saturation 91 % (92-99) 92 % (92-99) Arterial Blood pH 7.34 (7.35-7.45) 7.54 (7.35-7.45) Arterial Blood pH (Temp corrected) 7.35 Arterial Blood pCO2 at Patient Temp 106 mmHg (35-46) 46 mmHg (35-46) Arterial Blood pCO2 (Temp correct) 103 mmHg Arterial Blood pO2 at Patient Temp 64 mmHg (65-108) 55 mmHg (65-108) Arterial Blood pO2 (Temp corrected) 61 mmHg Arterial Blood HCO3 56 mmol/L (21-28) 38 mmol/L (21-28) Arterial Blood Base Excess 24 mmol/L (-3-3) 14 mmol/L (-3-3) FiO2 50 60 Test 10/26/18 04:40 10/26/18 09:00 Lactic Acid Level 3.8 mmol/L (0.4-2.0) 3.2 mmol/L (0.4-2.0) Assessment and Plan Assessmemt and Plan Problems Medical Problems: (1) Hypercapnic respiratory failure Status: Acute Comment Review of Relevant I have reviewed the following items lucila (where applicable) has been applied. Labs Laboratory Tests Test 10/25/18 17:35 10/25/18 17:52 10/25/18 19:48 10/25/18 21:53 White Blood Count 7.4 x10^3/uL (4.0-11.0) Red Blood Count 4.42 x10^6/uL (3.50-5.40) Hemoglobin 13.3 g/dL (12.0-15.5) Hematocrit 42.0 % (36.0-47.0) Mean Corpuscular Volume 95 fL (79-100) Mean Corpuscular Hemoglobin 30 pg (25-35) Mean Corpuscular Hemoglobin Concent 32 g/dL (31-37) Red Cell Distribution Width 15.1 % (11.5-14.5) Platelet Count 271 x10^3/uL (140-400) Neutrophils (%) (Auto) 83 % (31-73) Lymphocytes (%) (Auto) 10 % (24-48) Monocytes (%) (Auto) 6 % (0-9) Eosinophils (%) (Auto) 0 % (0-3) Basophils (%) (Auto) 1 % (0-3) Neutrophils # (Auto) 6.1 x10^3uL (1.8-7.7) Lymphocytes # (Auto) 0.7 x10^3/uL (1.0-4.8) Monocytes # (Auto) 0.5 x10^3/uL (0.0-1.1) Eosinophils # (Auto) 0.0 x10^3/uL (0.0-0.7) Basophils # (Auto) 0.0 x10^3/uL (0.0-0.2) Sodium Level 144 mmol/L (136-145) Potassium Level 4.2 mmol/L (3.5-5.1) Chloride Level 97 mmol/L (98-107) Carbon Dioxide Level > 45 mmol/L (21-32) Anion Gap (6-14) Blood Urea Nitrogen 24 mg/dL (7-20) Creatinine 0.3 mg/dL (0.6-1.0) Estimated GFR (Cockcroft-Gault) 221.9 BUN/Creatinine Ratio 80 (6-20) Glucose Level 152 mg/dL (70-99) Lactic Acid Level 1.8 mmol/L (0.4-2.0) Calcium Level 9.4 mg/dL (8.5-10.1) Total Bilirubin 0.2 mg/dL (0.2-1.0) Aspartate Amino Transf (AST/SGOT) 19 U/L (15-37) Alanine Aminotransferase (ALT/SGPT) 21 U/L (14-59) Alkaline Phosphatase 82 U/L (46-116) Troponin I Quantitative < 0.017 ng/mL (0.000-0.055) TR-Hhm-J-Type Natriuretic Peptide 48 pg/mL (0-124) Total Protein 8.0 g/dL (6.4-8.2) Albumin 3.1 g/dL (3.4-5.0) Albumin/Globulin Ratio 0.6 (1.0-1.7) Urine Collection Type U cath Urine Color Red Urine Clarity Turbid Urine pH 6.0 Urine Specific [place] 1.025 Urine Protein 100 mg/dL (NEG-TRACE) Urine Glucose (UA) Negative mg/dL (NEG) Urine Ketones (Stick) Trace mg/dL (NEG) Urine Blood Large (NEG) Urine Nitrite Positive (NEG) Urine Bilirubin Negative (NEG) Urine Urobilinogen Dipstick 1.0 mg/dL (0.2 mg/dL) Urine Leukocyte Esterase Large (NEG) Urine RBC Tntc /HPF (0-2) Urine WBC >40 /HPF (0-4) Urine Squamous Epithelial Cells None /LPF Urine Bacteria Many /HPF (0-FEW) O2 Saturation 91 % (92-99) 92 % (92-99) Arterial Blood pH 7.34 (7.35-7.45) 7.54 (7.35-7.45) Arterial Blood pH (Temp corrected) 7.35 Arterial Blood pCO2 at Patient Temp 106 mmHg (35-46) 46 mmHg (35-46) Arterial Blood pCO2 (Temp correct) 103 mmHg Arterial Blood pO2 at Patient Temp 64 mmHg (65-108) 55 mmHg (65-108) Arterial Blood pO2 (Temp corrected) 61 mmHg Arterial Blood HCO3 56 mmol/L (21-28) 38 mmol/L (21-28) Arterial Blood Base Excess 24 mmol/L (-3-3) 14 mmol/L (-3-3) FiO2 50 60 Test 10/26/18 04:40 10/26/18 09:00 Lactic Acid Level 3.8 mmol/L (0.4-2.0) 3.2 mmol/L (0.4-2.0) Laboratory Tests Test 10/25/18 17:35 10/25/18 17:52 10/25/18 19:48 10/25/18 21:53 White Blood Count 7.4 x10^3/uL (4.0-11.0) Red Blood Count 4.42 x10^6/uL (3.50-5.40) Hemoglobin 13.3 g/dL (12.0-15.5) Hematocrit 42.0 % (36.0-47.0) Mean Corpuscular Volume 95 fL (79-100) Mean Corpuscular Hemoglobin 30 pg (25-35) Mean Corpuscular Hemoglobin Concent 32 g/dL (31-37) Red Cell Distribution Width 15.1 % (11.5-14.5) Platelet Count 271 x10^3/uL (140-400) Neutrophils (%) (Auto) 83 % (31-73) Lymphocytes (%) (Auto) 10 % (24-48) Monocytes (%) (Auto) 6 % (0-9) Eosinophils (%) (Auto) 0 % (0-3) Basophils (%) (Auto) 1 % (0-3) Neutrophils # (Auto) 6.1 x10^3uL (1.8-7.7) Lymphocytes # (Auto) 0.7 x10^3/uL (1.0-4.8) Monocytes # (Auto) 0.5 x10^3/uL (0.0-1.1) Eosinophils # (Auto) 0.0 x10^3/uL (0.0-0.7) Basophils # (Auto) 0.0 x10^3/uL (0.0-0.2) Sodium Level 144 mmol/L (136-145) Potassium Level 4.2 mmol/L (3.5-5.1) Chloride Level 97 mmol/L (98-107) Carbon Dioxide Level > 45 mmol/L (21-32) Anion Gap (6-14) Blood Urea Nitrogen 24 mg/dL (7-20) Creatinine 0.3 mg/dL (0.6-1.0) Estimated GFR (Cockcroft-Gault) 221.9 BUN/Creatinine Ratio 80 (6-20) Glucose Level 152 mg/dL (70-99) Lactic Acid Level 1.8 mmol/L (0.4-2.0) Calcium Level 9.4 mg/dL (8.5-10.1) Total Bilirubin 0.2 mg/dL (0.2-1.0) Aspartate Amino Transf (AST/SGOT) 19 U/L (15-37) Alanine Aminotransferase (ALT/SGPT) 21 U/L (14-59) Alkaline Phosphatase 82 U/L (46-116) Troponin I Quantitative < 0.017 ng/mL (0.000-0.055) WC-Fgo-Z-Type Natriuretic Peptide 48 pg/mL (0-124) Total Protein 8.0 g/dL (6.4-8.2) Albumin 3.1 g/dL (3.4-5.0) Albumin/Globulin Ratio 0.6 (1.0-1.7) Urine Collection Type U cath Urine Color Red Urine Clarity Turbid Urine pH 6.0 Urine Specific [place] 1.025 Urine Protein 100 mg/dL (NEG-TRACE) Urine Glucose (UA) Negative mg/dL (NEG) Urine Ketones (Stick) Trace mg/dL (NEG) Urine Blood Large (NEG) Urine Nitrite Positive (NEG) Urine Bilirubin Negative (NEG) Urine Urobilinogen Dipstick 1.0 mg/dL (0.2 mg/dL) Urine Leukocyte Esterase Large (NEG) Urine RBC Tntc /HPF (0-2) Urine WBC >40 /HPF (0-4) Urine Squamous Epithelial Cells None /LPF Urine Bacteria Many /HPF (0-FEW) O2 Saturation 91 % (92-99) 92 % (92-99) Arterial Blood pH 7.34 (7.35-7.45) 7.54 (7.35-7.45) Arterial Blood pH (Temp corrected) 7.35 Arterial Blood pCO2 at Patient Temp 106 mmHg (35-46) 46 mmHg (35-46) Arterial Blood pCO2 (Temp correct) 103 mmHg Arterial Blood pO2 at Patient Temp 64 mmHg (65-108) 55 mmHg (65-108) Arterial Blood pO2 (Temp corrected) 61 mmHg Arterial Blood HCO3 56 mmol/L (21-28) 38 mmol/L (21-28) Arterial Blood Base Excess 24 mmol/L (-3-3) 14 mmol/L (-3-3) FiO2 50 60 Test 10/26/18 04:40 10/26/18 09:00 Lactic Acid Level 3.8 mmol/L (0.4-2.0) 3.2 mmol/L (0.4-2.0) Medications Current Medications Sodium Chloride 1,000 ml @ 1,000 mls/hr Q1H IV Last administered on 10/25/18at 19:04; Start 10/25/18 at 17:28; Stop 10/25/18 at 18:27; Status DC Albuterol/ Ipratropium (Duoneb) 3 ml 1X ONCE NEB Last administered on at 17:53; Start 10/25/18 at 17:30; Stop 10/25/18 at 17:31; Status DC Methylprednisolone Sodium Succinate (SOLU-Medrol 125MG VIAL) 125 mg 1X ONCE IV Last administered on 10/25/18at 19:04; Start 10/25/18 at 17:30; Stop 10/25/18 at 17:31; Status DC Ceftriaxone Sodium (Rocephin) 1 gm 1X ONCE IVP Last administered on 10/25/18at 20:24; Start 10/25/18 at 19:00; Stop 10/25/18 at 19:02; Status DC Ondansetron HCl (Zofran) 4 mg PRN Q8HRS PRN IV NAUSEA/VOMITING; Start 10/25/18 at 20:15; Stop 10/26/18 at 20:14 Sodium Chloride 1,000 ml @ 126 mls/hr Q7H57M IV ; Start 10/25/18 at 20:07; Stop 10/26/18 at 07:12; Status DC Acetaminophen (Tylenol) 650 mg 1X ONCE PEG Last administered on 10/26/18at 04:59 ; Start 10/26/18 at 04:30; Stop 10/26/18 at 04:32; Status DC Piperacillin Sod/ Tazobactam Sod (Zosyn Per Pharmacy) 1 each PRN DAILY PRN MC SEE COMMENTS; Start 10/26/18 at 07:15 Vancomycin HCl (Vanco Per Pharmacy) 1 each PRN DAILY PRN MC SEE COMMENTS; Start 10/26/18 at 07:15 Piperacillin Sod/ Tazobactam Sod 3.375 gm/Sodium Chloride 50 ml @ 100 mls/hr Q6HRS IV Last administered on 10/26/18at 08:43; Start 10/26/18 at 08:00 Vancomycin HCl 1.75 gm/Sodium Chloride 500 ml @ 250 mls/hr 1X ONCE IV Last administered on 10/26/18at 09:25; Start 10/26/18 at 08:00; Stop 10/26/18 at 09:59; Status DC Active Scripts Active Reported Cardizem Tablet (Diltiazem Hcl) 30 Mg Tablet 30 Mg PO HS PRN Enema Ready To Use (Na Phos,M-B/Na Phos,Di-Ba) 133 Ml Enema 133 Ml RC Acetaminophen 500 Mg Tablet 1 Tab PO Q6HRS Probiotic Plus & Cranberry Cap (Cran/C/B.coag/Fos/L.acid/L.rha) 1 Each Capsule 1 Each PO BID Azithromycin Tablet (Azithromycin) 250 Mg Tablet 250 Mg PO DAILY Estradiol Transdermal Patch (Estradiol) 1 Each Patch.tdwk 1 Each TD BID WEEKLY Next dose 06/30/17 Karishma (Norethindrone) 0.35 Mg Tablet 0.35 Mg PO DAILY Keppra (Levetiracetam) 500 Mg Tablet 750 Mg PO BID Cardizem Tablet (Diltiazem Hcl) 60 Mg Tablet 60 Mg PO DAILY16 Metoprolol Tartrate 25 Mg Tablet 1 Tab PO BID Xopenex (Levalbuterol Hcl) 0.63 Mg/3 Ml Vial.neb 1 Vial NEB TID Valium (Diazepam) 2 Mg Tablet 2 Mg PO TID Transderm-Scop (Scopolamine) 1 Each Patch.td72 1 Each TD Q3DAYS Indication: secretions Next dose: 06/30/17 am Nystop (Nystatin) 60 Gm Powder 60 Gm TP PRN Indication: rash NExt dose: as needed Levalbuterol Hcl 0.63 Mg/3 Ml Vial.neb 0.63 Mg IH TID Spiriva (Tiotropium [place]) 18 Mcg Cap.w.dev 18 Mcg IH DAILY Diltiazem Hcl Tablet (Diltiazem Hcl) 60 Mg Tablet 60 Mg PO DAILY07 Provigil (Modafinil) 200 Mg Tablet 200 Mg PO DAILY Paxil (Paroxetine Hcl) 10 Mg/5 Ml Oral.susp 10 Mg PO DAILY Baclofen 10 Mg Tablet 10 Mg PO TID Vitals/I & O Vital Sign - Last 24 Hours 10/25/18 10/25/18 10/25/18 10/25/18 17:23 17:30 18:03 18:30 Temp 97.5 97.5 Pulse 77 76 76 Resp 13 18 18 B/P (MAP) 127/53 (77) Pulse Ox 94 93 97 93 O2 Delivery Tracheal Collar Tracheal Collar O2 Flow Rate 12.0 12.0 10/25/18 10/25/18 10/25/18 10/25/18 19:00 20:52 21:32 21:34 Pulse 81 76 78 Resp 18 18 18 Pulse Ox 95 95 93 96 O2 Delivery 4 SHILEY CUFF INFLATED 10/25/18 10/25/18 10/25/18 10/25/18 22:00 22:00 22:15 22:30 Temp 98.0 98.0 Pulse 90 80 80 Resp 18 22 12 B/P (MAP) 160/76 (104) 135/85 (102) 109/67 (81) Pulse Ox 91 95 94 98 O2 Delivery BiPAP/CPAP 4 SHILEY CUFF INFLATED BiPAP/CPAP BiPAP/CPAP 10/25/18 10/25/18 10/25/18 10/26/18 22:45 23:00 23:59 00:00 Pulse 78 78 82 Resp 12 12 12 B/P (MAP) 106/68 (81) 110/63 (79) 105/63 (77) Pulse Ox 98 98 97 O2 Delivery BiPAP/CPAP BiPAP/CPAP Bi-pap BiPAP/CPAP 10/26/18 10/26/18 10/26/18 10/26/18 00:02 01:00 02:10 02:11 Pulse 87 84 Resp 12 12 B/P (MAP) 113/71 (85) 129/60 (83) Pulse Ox 98 95 96 96 O2 Delivery 4 SHILEY CUFF INFLATED BiPAP/CPAP BiPAP/CPAP 4 SHILEY CUFF INFLATED 10/26/18 10/26/18 10/26/18 10/26/18 03:00 04:00 04:00 05:00 Temp 101.1 101.1 Pulse 88 101 104 Resp 12 12 12 B/P (MAP) 135/67 (89) 140/60 (86) 117/69 (85) Pulse Ox 95 95 96 O2 Delivery BiPAP/CPAP Bi-pap BiPAP/CPAP BiPAP/CPAP 10/26/18 10/26/18 10/26/18 10/26/18 05:10 06:00 07:00 07:42 Temp 101.3 99.4 101.3 99.4 Pulse 101 99 Resp 12 12 B/P (MAP) 138/71 (93) 141/69 (93) Pulse Ox 95 96 97 O2 Delivery 4 SHILEY CUFF INFLATED BiPAP/CPAP apap with trach Bi-pap O2 Flow Rate 12.0 10/26/18 10/26/18 10/26/18 10/26/18 07:46 08:00 09:00 10:00 Temp 99.5 99.5 Pulse 95 97 100 Resp 12 12 12 B/P (MAP) 127/79 (95) 143/81 (101) 159/75 (103) Pulse Ox 97 97 98 O2 Delivery apap with trach apap with trach apap with trach O2 Flow Rate 12.0 12.0 12.0 12.0 Intake and Output 10/25/18 10/25/18 10/26/18 14:59 22:59 06:59 Intake Total 1000 ml Output Total 750 ml Balance 1000 ml -750 ml SOL FATIMA MD Oct 26, 2018 10:42
[2018-10-26] MEDS ORDERED: SODIUM PHOSPHATES 19/7GM 133 ML ENEMA. RC PRN (11:15)
[2018-10-26] MEDS ORDERED: NYSTATIN TOPICAL POWDER 15GM BOTTLE. TP PRN (11:15)
[2018-10-26] MEDS ORDERED: ACETAMINOPHEN 500 MG TABLET PO PRN (11:30)
[2018-10-26] MEDS ORDERED: ALBUTEROL SULFATE 2.5 MG/3 ML NEBU. NEB PRN (11:30)
[2018-10-26] MEDS: levETIRAcetam 250 MG TABLET PO SCH ×2 (12:10→20:41)
[2018-10-26] MEDS: METOPROLOL TART IMMED RELEASE 25 MG TABLET. PO SCH ×2 (12:10→20:40)
[2018-10-26] MEDS: PARoxetine 10 MG TABLET PO SCH (12:10)
[2018-10-26] MEDS: VANCOMYCIN PER PHARMACY MC PRN (13:10)
--- NOTE | 2018-10-26 13:10 | NUR ---
SS following for discharge planning. SS reviewed pt chart. Pt is from home with family and currently has trach. Pt has had services with [facility] in the past. No discharge needs noted at the time. SS will continue to follow for discharge planning.
--- NOTE | 2018-10-26 13:13 | NUR ---
Pharmacy Vancomycin Dosing Note S:Consulted to monitor and dose vancomycin started 10/26/18. O:MINNIE BENZ is a 68 year old F with Fever, resp failure . Height: 5 feet, 2 inches Weight: 68 kg [place] Body Weight: 50.10 Adjusted Body Weight: 57.26 Dosing Weight: Actual Other Antibiotics: zosyn LABS: Last BUN: Last Creatinine: Creatinine Clearance: 49 mL/min Last WBC: Last Procalcitonin: Tmax (past 24 hours): 101.3 Microbiology: I/O: Drug Levels: Last level: on at Last dose given 10/26/18 at 0925 Vancomycin Dosing: Loading Dose: 1750 mg x1 Dosing Weight: Actual Target Trough: 15-20 A: Based on: weight and renal function P: 1. Begin Vancomycin 1000 mg IV q24h 2. Follow up Trough level on 10/28/18 at 0900 3. Pharmacy will continue to monitor, follow and adjust therapy as needed. Jennifer Moreno Joana, 10/26/18 [id number]
[2018-10-26] MEDS ORDERED: NON FORMULARY ITEM (Levalbuterol Hcl (Xopenex) 1 VIAL) NEB SCH (14:00)
[2018-10-26] MEDS ORDERED: LEVALBUTEROL HCL 0.63 MG IH SCH (14:00)
--- NOTE | 2018-10-26 15:15 | RAD ---
Single view of the chest. 10/26/2018 2:56 PM Indication: VERIFY PICC LINE PLACEMENT Comparison: Chest radiograph, yesterday Findings: There is a right upper extremity PICC line with tip at the cavoatrial junction. No pneumothorax is seen. Moderate bilateral pleural effusions with underlying compressive atelectasis noted. Bony thorax is intact intact. Tracheostomy appears to be intact. IMPRESSION: 1. New right upper extremity PICC line with tip at the cavoatrial junction 2. Moderate bilateral pleural effusions with underlying atelectasis Electronically signed by: Nicolas Charles MD (10/26/2018 3:12 PM) [id number]
--- NOTE | 2018-10-26 15:23 | NUR ---
Wound Care: Wound care consulted for bilateral coccyx wounds, see wound intervention. Bilateral sides assessed and cleansed. R coccyx PU DTI. L coccyx PU stage II. Foam applied bilaterally. Pt left turned on her right side. Pt needs to be turn Q2H. Findings communicated with MARIANN Mejía.
[2018-10-26] MEDS: IPRATRPIUM/ALBUTEROL 0.5/2.5MG 3 ML NEBU. NEB SCH ×3 (16:14→20:05)
[2018-10-26] MEDS: dilTIAZem HCL 30 MG TABLET PO SCH ×2 (16:26→20:40)
[2018-10-26] MEDS: BACLOFEN 10 MG TABLET. PO SCH ×2 (16:26→20:38)
[2018-10-26] MEDS: diazePAM 2 MG TABLET PO SCH ×2 (16:26→20:41)
[2018-10-26] MEDS: ASPIRIN CHEWABLE 81 MG TABLET. PO SCH (16:27)
--- NOTE | 2018-10-26 16:48 | RAD ---
Examination: CT CHEST WO CONTRAST History: Pulmonary effusions amount
previous Comparison/Correlation: 10/25/2017 and 10/26/2018 chest x-ray exams Findings: Axial images of chest were obtained without contrast. Sagittal and coronal reformatted images were provided. Tracheostomy tube is in place. Right sided PICC is in place. Moderate to large bilateral pleural effusions are present. Bibasilar lower lobe atelectatic consolidations are present. High density which may represent calcifications involving the left lower lobe at the basilar aspect noted. Partial loculation of the right pleural effusion at the anterior apical region is present measuring up to 3.7 cm transverse by 3.8 cm anteroposterior. No enlarged thoracic lymph nodes. Left renal inferior pole cyst is present. Nonobstructive left renal superior pole calyceal I present. There is a 1 cm diameter calculus and smaller calculi also noted at this level. Multiple calculi are present within the partially visualized gallbladder. No acute bony process. Impression: Moderate to large bilateral pleural effusions greater on the right. Partial loculation of the right pleural effusion at the anterior apical region noted. Notable passive atelectasis especially of the lower lobes. Nonobstructive left renal calyceal calculi. Cholelithiasis. PQRS Compliance Statement: One or more of the following individualized dose reduction techniques were utilized for this examination: 1. Automated exposure control 2. Adjustment of the mA and/or kV according to patient size 3. Use of iterative reconstruction technique Electronically signed by: Jad Tripathi MD (10/26/2018 4:45 PM) [facility]
--- NOTE | 2018-10-26 17:08 | CONS ---
DATE OF CONSULTATION: PULMONARY CONSULTATION ATTENDING PHYSICIAN: Dr. Kiki Mosquera. REASON FOR CONSULTATION: Respiratory failure. HISTORY OF PRESENT ILLNESS: The patient is known to us. She has advanced multiple sclerosis and chronic respiratory failure, history of chronic tracheostomy. She also has decubitus and baclofen pump. She was brought into the hospital with altered mental status. She was also noted to be hypoxic with saturations of 70%. Her ABGs showed a pH of 7.35, pCO2 of 106 and a pO2 of 103. She was placed on AVAPS through the tracheostomy tube and latest ABG showed a pH of 7.54, pCO2 of 46 and a pO2 of 55 on 60% FiO2. These gases were from yesterday. The patient's saturations are now in the high 90s. She had a chest x-ray, which revealed bilateral pleural effusions. She underwent CT chest, which was reviewed by me, done today. There are moderate bilateral pleural effusions, more on the right than on the left. There is also loculated effusion in the right upper lobe. I have been asked to see her for further evaluation. PAST MEDICAL HISTORY: Significant for advanced multiple sclerosis, history of tracheostomy, seizures, PEG tube, Baclofen pump, flap surgeries, colostomy. She also has one kidney. ALLERGIES: None. FAMILY HISTORY: Hypertension. SOCIAL HISTORY: No history of tobacco or alcohol use. MEDICATIONS: All reviewed as listed in the MRAD. REVIEW OF SYSTEMS: Unable to obtain from the patient. PHYSICAL EXAMINATION: VITAL SIGNS: Reviewed. T-max of 101.3, blood pressure is stable, pulse ox 99%. HEENT: Sclerae nonicteric. NECK: Supple. LUNGS: With diminished breath sounds at the bases. CARDIOVASCULAR: Regular rate and rhythm. ABDOMEN: Soft. EXTREMITIES: With bilateral pitting edema. LABORATORY DATA: Reviewed. ABGs are discussed in my history of present illness. Her BUN and creatinine 24 and 0.3, albumin is 3.1. Her urine shows many rbc's and wbc's. White cell count 7.4, hemoglobin 13.3 and platelets are 271. IMPRESSION: 1. Acute on chronic hypercapnic and hypoxic respiratory failure secondary to multifactorial etiologies including sepsis related to urinary tract infection and increasing bilateral pleural effusions. 2. The patient with severe/advanced multiple sclerosis with chronic respiratory failure. 3. The patient with prior thoracentesis and prior multiple bronchoscopies. 4. Fever related to sepsis. RECOMMENDATIONS: 1. Continue with present AVAPS. I have adjusted IPAP and respiratory rate and follow ABGs to make sure respiratory alkalosis is now corrected. 2. Continue broad-spectrum antibiotics. 3. Follow blood cultures. 4. The patient would benefit from thoracentesis. I will consult IR. 5. Follow chest x-rays, post thoracentesis. 6. Would also recommend discussion of goals of care and consult palliative care. 7. Discussed with RN and RT. Critical care time 35 minutes. ANA HOLLIDAY MD DR: WILDER/larry JOB#: [id number] / [id number]
[2018-10-26 17:31] LABS: FIO2 ABG 70
[2018-10-26] MEDS ORDERED: [UNRECOGNIZED DRUG - OTHER] PO SCH (21:00)
[2018-10-27] VITALS (24 sets, daily range): BP systolic 98–166; BP diastolic 44–75
--- NOTE | 2018-10-27 00:09 | CONS ---
DATE OF CONSULTATION: 10/26/2018 REQUESTING PHYSICIAN: Kiki Mosquera D.O. REASON FOR CONSULTATION: Fever and respiratory failure. HISTORY OF PRESENT ILLNESS: This is a 68-year-old female with history of multiple scleroses with total care. The patient has been taken care of by at home. The patient was brought in because of hypoxia and CO2 narcosis, in fact hypercapnic respiratory failure. The patient has been noted to have fever and requiring with ventilatory support. Trach has been replaced and suprapubic catheter has been replaced, suprapubic was replaced 2 days ago. The patient with open eyes and nonverbal on a ventilator. No nausea, vomiting or diarrhea noted by nursing. The patient did have 101 fever. PAST MEDICAL HISTORY: Positive for multiple scleroses, longstanding respiratory failure, tracheostomy, seizure disorder and hypertension. PAST SURGICAL HISTORY: The patient has had flap surgery, colostomy and baclofen pump. SOCIAL HISTORY: Negative for smoking, alcohol or illicit drug use. The patient is a total care taken care of by at home. CURRENT MEDICATIONS: Reviewed. The patient is on vancomycin and Zosyn. REVIEW OF SYSTEMS: As per HPI. The patient is not able to provide any. All the information as per the HPI through the patient's nurse. PHYSICAL EXAMINATION: GENERAL: Awake female, nonverbal, does not respond and on a ventilator, not in any distress. VITAL SIGNS: Temperature max is 101.3, pulse 99, respiration 12 and blood pressure 141/69. HEENT: Both pupils are round and reacting. No conjunctival lesion. No oral lesion. NECK: Supple. No JVP. Tracheostomy in place. LUNGS: Bilateral decreased breath sounds. HEART: S1 and S2 regular. No gallop or murmur. ABDOMEN: Soft and nontender. PEG tube is in place, suprapubic catheter is in place. EXTREMITIES: No edema or cyanosis. Loss of muscle mass. NEUROLOGICAL: The patient is awake but does not verbalize any and does not respond to any stimuli in a meaningful way. SKIN: Unremarkable. LABORATORY DATA: White count is 7.4, hemoglobin 13.3, platelets are normal. BUN and creatinine are 24 and 0.3. Lactic acid 3.8. Urinalysis showed too numerous to count rbc's and more than 40 wbc's. IMPRESSION: 1. Fever. 2. Lactic acidosis and sepsis. 3. Sepsis. 4. Hypercapnic respiratory failure. 5. Hypoxemia. 6. Multiple scleroses. 7. Suspected aspiration. RECOMMENDATIONS: Recommend continue vancomycin and Zosyn, supportive care, hwang cultures and we will adjust. Overall, prognosis is poor. Thank you very much, Dr. Mosquera, for giving me the opportunity to participate in this patient's care. DARWIN PITTS MD DR: CHAVA/larry JOB#: [id number] / [id number]
[2018-10-27] MEDS: PIPERACILLIN/TAZOBACTAM 3.375 GM in IV NORMAL SALINE 50ML 50 ML IV SCH ×3 (05:33→17:56)
[2018-10-27 06:07] LABS: CREATININE 0.4 mg/dL (0.6-1.0); GFR 159.2
[2018-10-27] MEDS: dilTIAZem HCL 30 MG TABLET PO SCH ×3 (06:35→21:04)
[2018-10-27] MEDS: IPRATRPIUM/ALBUTEROL 0.5/2.5MG 3 ML NEBU. NEB SCH ×4 (08:00→20:13)
--- NOTE | 2018-10-27 08:09 | PDOC ---
Infectious Disease Note Subjective Subjective awake, on vent ROS ROS no n/v/d/sob Vital Sign Vital Signs Vital Signs Date Time Temp Pulse Resp B/P (MAP) Pulse Ox O2 Delivery O2 Flow Rate FiO2 10/27/18 06:35 88 161/66 10/27/18 06:00 27 97 apap with trach 10/27/18 04:00 98.4 98.4 10/26/18 15:00 12.0 Physical Exam PHYSICAL EXAM GENERAL: Awake female, nodes, on vent VITAL SIGNS: stable HEENT: Both pupils are round and reacting. No conjunctival lesion. No oral lesion. NECK: Supple. No JVP. Tracheostomy in place. LUNGS: Bilateral decreased breath sounds. HEART: S1 and S2 regular. No gallop or murmur. ABDOMEN: Soft and nontender. PEG tube is in place, suprapubic catheter is in place. EXTREMITIES: No edema or cyanosis. Loss of muscle mass. NEUROLOGICAL: awake, nodes, quadruplegic SKIN: Unremarkable. Labs Lab Laboratory Tests Test 10/26/18 08:40 10/26/18 09:00 10/27/18 05:37 O2 Saturation 95 % (92-99) Arterial Blood pH 7.60 (7.35-7.45) Arterial Blood pCO2 at Patient Temp 40 mmHg (35-46) Arterial Blood pO2 at Patient Temp 64 mmHg (65-108) Arterial Blood HCO3 38 mmol/L (21-28) Arterial Blood Base Excess 15 mmol/L (-3-3) FiO2 70 Lactic Acid Level 3.2 mmol/L (0.4-2.0) Creatinine 0.4 mg/dL (0.6-1.0) Estimated GFR (Cockcroft-Gault) 159.2 Micro BLOOD CULTURE Final GRAM POSITIVE COCCI IN CLUSTERS, SUGGESTIVE OF STAPH, IN 1 OF 2 BOTTLES, ONE SET DRAWN ON 10/25/18 CALLED TO LELA ARRIAGA RN IN ICU AT 16:00 ON 10/26/18 DW MT SENT TO [facility] FOR FURTHER WORKUP. Objective Assessment 1. Fever. 2. Lactic acidosis and sepsis. 3. Sepsis. 4. Hypercapnic respiratory failure. 5. Hypoxemia. 6. Multiple scleroses. 7. Suspected aspiration. 8. BC + 1/2 G + cocci Plan Plan of Care panculture vanc and zosyn supportive care check cultures DARWIN PITTS MD Oct 27, 2018 08:09
[2018-10-27 08:16] LABS: PROTHROMBIN TIME PATIENT 13.7 SEC (11.7-14.0)
[2018-10-27] MEDS: BACLOFEN 10 MG TABLET. PO SCH ×3 (08:36→21:04)
[2018-10-27] MEDS: PARoxetine 10 MG TABLET PO SCH (08:36)
[2018-10-27] MEDS: ASPIRIN CHEWABLE 81 MG TABLET. PO SCH (08:36)
[2018-10-27] MEDS: diazePAM 2 MG TABLET PO SCH ×3 (08:36→21:05)
[2018-10-27] MEDS: SCOPOLAMINE 1.5MG PATCH. TD SCH (08:37)
[2018-10-27] MEDS: levETIRAcetam 250 MG TABLET PO SCH ×2 (08:39→21:04)
[2018-10-27] MEDS ORDERED: NON FORMULARY ITEM (Tiotropium Bromide (Spiriva) 18 MCG) IH SCH (09:00)
[2018-10-27] MEDS ORDERED: AZITHROMYCIN 250 MG TABLET. PO SCH (09:00)
[2018-10-27] MEDS ORDERED: NORETHINDRONE 0.35 MG PO SCH (09:00)
[2018-10-27 09:10] LABS: BASE EXCESS ABG 10 mmol/L (-3-3); HCO3 ABG 36 mmol/L (21-28); PCO2 ABG 56 mmHg (35-46); PO2 ABG 71 mmHg (65-108); SAT O2 ABG 93 % (92-99)
--- NOTE | 2018-10-27 09:31 | PDOC ---
PROGRESS NOTES Chief Complaint Chief Complaint Acute on chronic respiratory failure Bialteral pleural effusion, Advanced multiple sclerosis, tracheostomy, history of seizures, PEG tube, baclofen pump, colostomy Plan: thoracentesis scheduled for today, will follow after procedure. Patient voicing she would like to go Home, will address goals of therapy with family once they come and visit. supportive measures wound care resume home meds farther recommendations based on clinical course. History of Present Illness History of Present Illness Patient on the mechanical ventilation tracheostomy in place unable to have conversation with the patient responding to verbal stimuli, no acute events reported overnight. She seems quite debilitated but this seems to be her baseline she seems somewhat imrpoved compared to yesterday, plan of care discussed in detail. Vitals Vitals Vital Signs Date Time Temp Pulse Resp B/P (MAP) Pulse Ox O2 Delivery O2 Flow Rate FiO2 10/27/18 08:46 98 Ventilator 10/27/18 06:35 88 161/66 10/27/18 06:00 27 10/27/18 04:00 98.4 98.4 10/26/18 15:00 12.0 Physical Exam Physical Exam GENERAL: Awake female, nodes, on vent VITAL SIGNS: stable HEENT: Both pupils are round and reacting. No conjunctival lesion. No oral lesion. NECK: Supple. No JVP. Tracheostomy in place. LUNGS: Bilateral decreased breath sounds. HEART: S1 and S2 regular. No gallop or murmur. ABDOMEN: Soft and nontender. PEG tube is in place, suprapubic catheter is in place. EXTREMITIES: No edema or cyanosis. Loss of muscle mass. NEUROLOGICAL: awake, nodes, quadruplegic SKIN: Unremarkable. General: Alert, No acute distress Heart: Regular rate (SR), Other (distnat heart sounds) Lungs: Other Abdomen: Soft Extremities: Other (generalized edema trace to 1+) Skin: Other (suprapubic cath, PEG tube in place, trach site intact) Labs LABS Laboratory Tests Test 10/27/18 05:37 10/27/18 07:55 Creatinine 0.4 mg/dL (0.6-1.0) Estimated GFR (Cockcroft-Gault) 159.2 Prothrombin Time 13.7 SEC (11.7-14.0) Prothromb Time International Ratio 1.1 (0.8-1.1) Activated Partial Thromboplast Time 24 SEC (24-38) Assessment and Plan Assessmemt and Plan Problems Medical Problems: (1) Hypercapnic respiratory failure Status: Acute Comment Review of Relevant I have reviewed the following items lucila (where applicable) has been applied. Labs Laboratory Tests Test 10/25/18 17:35 10/25/18 17:52 10/25/18 19:48 10/25/18 21:53 White Blood Count 7.4 x10^3/uL (4.0-11.0) Red Blood Count 4.42 x10^6/uL (3.50-5.40) Hemoglobin 13.3 g/dL (12.0-15.5) Hematocrit 42.0 % (36.0-47.0) Mean Corpuscular Volume 95 fL (79-100) Mean Corpuscular Hemoglobin 30 pg (25-35) Mean Corpuscular Hemoglobin Concent 32 g/dL (31-37) Red Cell Distribution Width 15.1 % (11.5-14.5) Platelet Count 271 x10^3/uL (140-400) Neutrophils (%) (Auto) 83 % (31-73) Lymphocytes (%) (Auto) 10 % (24-48) Monocytes (%) (Auto) 6 % (0-9) Eosinophils (%) (Auto) 0 % (0-3) Basophils (%) (Auto) 1 % (0-3) Neutrophils # (Auto) 6.1 x10^3uL (1.8-7.7) Lymphocytes # (Auto) 0.7 x10^3/uL (1.0-4.8) Monocytes # (Auto) 0.5 x10^3/uL (0.0-1.1) Eosinophils # (Auto) 0.0 x10^3/uL (0.0-0.7) Basophils # (Auto) 0.0 x10^3/uL (0.0-0.2) Sodium Level 144 mmol/L (136-145) Potassium Level 4.2 mmol/L (3.5-5.1) Chloride Level 97 mmol/L (98-107) Carbon Dioxide Level > 45 mmol/L (21-32) Anion Gap (6-14) Blood Urea Nitrogen 24 mg/dL (7-20) Creatinine 0.3 mg/dL (0.6-1.0) Estimated GFR (Cockcroft-Gault) 221.9 BUN/Creatinine Ratio 80 (6-20) Glucose Level 152 mg/dL (70-99) Lactic Acid Level 1.8 mmol/L (0.4-2.0) Calcium Level 9.4 mg/dL (8.5-10.1) Total Bilirubin 0.2 mg/dL (0.2-1.0) Aspartate Amino Transf (AST/SGOT) 19 U/L (15-37) Alanine Aminotransferase (ALT/SGPT) 21 U/L (14-59) Alkaline Phosphatase 82 U/L (46-116) Troponin I Quantitative < 0.017 ng/mL (0.000-0.055) HI-Zrf-V-Type Natriuretic Peptide 48 pg/mL (0-124) Total Protein 8.0 g/dL (6.4-8.2) Albumin 3.1 g/dL (3.4-5.0) Albumin/Globulin Ratio 0.6 (1.0-1.7) Urine Collection Type U cath Urine Color Red Urine Clarity Turbid Urine pH 6.0 Urine Specific [place] 1.025 Urine Protein 100 mg/dL (NEG-TRACE) Urine Glucose (UA) Negative mg/dL (NEG) Urine Ketones (Stick) Trace mg/dL (NEG) Urine Blood Large (NEG) Urine Nitrite Positive (NEG) Urine Bilirubin Negative (NEG) Urine Urobilinogen Dipstick 1.0 mg/dL (0.2 mg/dL) Urine Leukocyte Esterase Large (NEG) Urine RBC Tntc /HPF (0-2) Urine WBC >40 /HPF (0-4) Urine Squamous Epithelial Cells None /LPF Urine Bacteria Many /HPF (0-FEW) O2 Saturation 91 % (92-99) 92 % (92-99) Arterial Blood pH 7.34 (7.35-7.45) 7.54 (7.35-7.45) Arterial Blood pH (Temp corrected) 7.35 Arterial Blood pCO2 at Patient Temp 106 mmHg (35-46) 46 mmHg (35-46) Arterial Blood pCO2 (Temp correct) 103 mmHg Arterial Blood pO2 at Patient Temp 64 mmHg (65-108) 55 mmHg (65-108) Arterial Blood pO2 (Temp corrected) 61 mmHg Arterial Blood HCO3 56 mmol/L (21-28) 38 mmol/L (21-28) Arterial Blood Base Excess 24 mmol/L (-3-3) 14 mmol/L (-3-3) FiO2 50 60 Test 10/25/18 22:05 10/26/18 04:40 10/26/18 08:40 10/26/18 09:00 Nasal Screen MRSA (PCR) Negative (Negative) Lactic Acid Level 3.8 mmol/L (0.4-2.0) 3.2 mmol/L (0.4-2.0) O2 Saturation 95 % (92-99) Arterial Blood pH 7.60 (7.35-7.45) Arterial Blood pCO2 at Patient Temp 40 mmHg (35-46) Arterial Blood pO2 at Patient Temp 64 mmHg (65-108) Arterial Blood HCO3 38 mmol/L (21-28) Arterial Blood Base Excess 15 mmol/L (-3-3) FiO2 70 Test 10/27/18 05:37 10/27/18 07:55 Creatinine 0.4 mg/dL (0.6-1.0) Estimated GFR (Cockcroft-Gault) 159.2 Prothrombin Time 13.7 SEC (11.7-14.0) Prothromb Time International Ratio 1.1 (0.8-1.1) Activated Partial Thromboplast Time 24 SEC (24-38) Laboratory Tests Test 10/27/18 05:37 10/27/18 07:55 Creatinine 0.4 mg/dL (0.6-1.0) Estimated GFR (Cockcroft-Gault) 159.2 Prothrombin Time 13.7 SEC (11.7-14.0) Prothromb Time International Ratio 1.1 (0.8-1.1) Activated Partial Thromboplast Time 24 SEC (24-38) Microbiology 10/26/18 Blood Culture - Preliminary, Resulted NO GROWTH AFTER 1 DAY Medications Current Medications Sodium Chloride 1,000 ml @ 1,000 mls/hr Q1H IV Last administered on 10/25/18at 19:04; Start 10/25/18 at 17:28; Stop 10/25/18 at 18:27; Status DC Albuterol/ Ipratropium (Duoneb) 3 ml 1X ONCE NEB Last administered on at 17:53; Start 10/25/18 at 17:30; Stop 10/25/18 at 17:31; Status DC Methylprednisolone Sodium Succinate (SOLU-Medrol 125MG VIAL) 125 mg 1X ONCE IV Last administered on 10/25/18at 19:04; Start 10/25/18 at 17:30; Stop 10/25/18 at 17:31; Status DC Ceftriaxone Sodium (Rocephin) 1 gm 1X ONCE IVP Last administered on 10/25/18at 20:24; Start 10/25/18 at 19:00; Stop 10/25/18 at 19:02; Status DC Ondansetron HCl (Zofran) 4 mg PRN Q8HRS PRN IV NAUSEA/VOMITING; Start 10/25/18 at 20:15; Stop 10/26/18 at 20:14; Status DC Sodium Chloride 1,000 ml @ 126 mls/hr Q7H57M IV ; Start 10/25/18 at 20:07; Stop 10/26/18 at 07:12; Status DC Acetaminophen (Tylenol) 650 mg 1X ONCE PEG Last administered on 10/26/18at 04:59 ; Start 10/26/18 at 04:30; Stop 10/26/18 at 04:32; Status DC Piperacillin Sod/ Tazobactam Sod (Zosyn Per Pharmacy) 1 each PRN DAILY PRN MC SEE COMMENTS; Start 10/26/18 at 07:15 Vancomycin HCl (Vanco Per Pharmacy) 1 each PRN DAILY PRN MC SEE COMMENTS Last administered on 10/26/18at 13:10; Start 10/26/18 at 07:15 Piperacillin Sod/ Tazobactam Sod 3.375 gm/Sodium Chloride 50 ml @ 100 mls/hr Q6HRS IV Last administered on 10/27/18at 05:33; Start 10/26/18 at 08:00 Vancomycin HCl 1.75 gm/Sodium Chloride 500 ml @ 250 mls/hr 1X ONCE IV Last administered on 10/26/18at 09:25; Start 10/26/18 at 08:00; Stop 10/26/18 at 09:59; Status DC Azithromycin (Zithromax) 250 mg DAILY PO ; Start 10/27/18 at 09:00; Status UNV Baclofen (Lioresal) 10 mg TID PO Last administered on 10/27/18at 08:36; Start at 14:00 Diazepam (Valium) 2 mg TID PO Last administered on 10/27/18at 08:36; Start at 14:00 Diltiazem HCl (Cardizem) 30 mg QHS PO Last administered on 10/26/18at 20:40; Start 10/26/18 at 21:00 Estradiol (Climara Weekly) 1 mg WEEKLY TD ; Start 11/02/18 at 09:00 Levetiracetam (Keppra) 750 mg BID PO Last administered on 10/27/18at 08:39; Start 10/26/18 at 12:00 Metoprolol Tartrate (Lopressor) 25 mg BID PO Last administered on 10/26/18at 20: 40; Start 10/26/18 at 12:00 Sodium Monofluorophosphate (Fleet Adult) 133 ml DAILY PRN RC constipation; Start 10/26/18 at 11:15 Nystatin (Nystop) 1 parag PRN BID PRN TP RASH; Start 10/26/18 at 11:15 Acetaminophen (Tylenol) 500 mg PRN Q6HRS PRN PO MILD PAIN / TEMP; Start at 11:30 Non-Formulary Medication (Cran/C/B.coag/ Fos/L.acid/L.rha (Probiotic Plus & Cranberry Cap)) 1 each BID PO ; Start 10/26/18 at 21:00; Status UNV Diltiazem HCl (Cardizem) 60 mg DAILY16 PO Last administered on 10/26/18at 16:26; Start 10/26/18 at 16:00 Diltiazem HCl (Cardizem) 60 mg DAILY07 PO Last administered on 10/27/18at 06:35 ; Start 10/27/18 at 07:00 Non-Formulary Medication (Levalbuterol Hcl ) 0.63 mg TID IH ; Start 10/26/18 at 14:00; Status UNV Non-Formulary Medication (Levalbuterol Hcl (Xopenex)) 1 vial TID NEB ; Start 10/26/18 at 14:00; Status UNV Non-Formulary Medication (Modafinil (Provigil)) 200 mg DAILY PO ; Start at 09:00; Status UNV Non-Formulary Medication (Norethindrone (Karishma)) 0.35 mg DAILY PO ; Start 10/27 at 09:00; Status UNV Paroxetine HCl (Paxil) 10 mg DAILY PO Last administered on 10/27/18at 08:36; Start 10/26/18 at 12:00 Scopolamine (Transderm-Scop) 1 patch Q3DAYS TD Last administered on 10/27/18at 08:37; Start 10/27/18 at 09:00 Non-Formulary Medication (Tiotropium [place] (Spiriva)) 18 mcg DAILY IH ; Start 10/27/18 at 09:00; Status UNV Albuterol/ Ipratropium (Duoneb) 3 ml RTQID NEB Last administered on 10/27/18at 08:00; Start 10/26/18 at 12:00 Albuterol Sulfate (Ventolin Neb Soln) 2.5 mg PRN TID PRN NEB SHORTNESS OF BREATH; Start 10/26/18 at 11:30 Vancomycin HCl 1 gm/Sodium Chloride 250 ml @ 250 mls/hr Q24H IV ; Start at 09:30 Vancomycin HCl (Vancomycin Trough Level) 1 each 1X ONCE MC ; Start 10/28/18 at 09:00; Stop 10/28/18 at 09:01 Aspirin (Children'S Aspirin) 81 mg DAILYWBKFT PO Last administered on at 08:36; Start 10/26/18 at 14:30 Active Scripts Active Reported Cardizem Tablet (Diltiazem Hcl) 30 Mg Tablet 30 Mg PO HS PRN Enema Ready To Use (Na Phos,M-B/Na Phos,Di-Ba) 133 Ml Enema 133 Ml RC Acetaminophen 500 Mg Tablet 1 Tab PO Q6HRS Probiotic Plus & Cranberry Cap (Cran/C/B.coag/Fos/L.acid/L.rha) 1 Each Capsule 1 Each PO BID Azithromycin Tablet (Azithromycin) 250 Mg Tablet 250 Mg PO DAILY Estradiol Transdermal Patch (Estradiol) 1 Each Patch.tdwk 1 Each TD BID WEEKLY Next dose 06/30/17 Karishma (Norethindrone) 0.35 Mg Tablet 0.35 Mg PO DAILY Keppra (Levetiracetam) 500 Mg Tablet 750 Mg PO BID Cardizem Tablet (Diltiazem Hcl) 60 Mg Tablet 60 Mg PO DAILY16 Metoprolol Tartrate 25 Mg Tablet 1 Tab PO BID Xopenex (Levalbuterol Hcl) 0.63 Mg/3 Ml Vial.neb 1 Vial NEB TID Valium (Diazepam) 2 Mg Tablet 2 Mg PO TID Transderm-Scop (Scopolamine) 1 Each Patch.td72 1 Each TD Q3DAYS Indication: secretions Next dose: 06/30/17 am Nystop (Nystatin) 60 Gm Powder 60 Gm TP PRN Indication: rash NExt dose: as needed Levalbuterol Hcl 0.63 Mg/3 Ml Vial.neb 0.63 Mg IH TID Spiriva (Tiotropium [place]) 18 Mcg Cap.w.dev 18 Mcg IH DAILY Diltiazem Hcl Tablet (Diltiazem Hcl) 60 Mg Tablet 60 Mg PO DAILY07 Provigil (Modafinil) 200 Mg Tablet 200 Mg PO DAILY Paxil (Paroxetine Hcl) 10 Mg/5 Ml Oral.susp 10 Mg PO DAILY Baclofen 10 Mg Tablet 10 Mg PO TID Vitals/I & O Vital Sign - Last 24 Hours 10/26/18 10/26/18 10/26/18 10/26/18 10:00 11:00 11:31 12:00 Pulse 100 83 Resp 12 12 B/P (MAP) 159/75 (103) 131/68 (89) Pulse Ox 98 98 99 O2 Delivery apap with trach apap with trach Ventilator O2 Flow Rate 12.0 12.0 12.0 10/26/18 10/26/18 10/26/18 10/26/18 12:00 12:00 12:10 13:00 Temp 100.0 100.0 Pulse 90 83 82 Resp 12 12 B/P (MAP) 130/68 (88) 131/68 140/61 (87) Pulse Ox 98 99 O2 Delivery Bi-pap apap with trach apap with trach O2 Flow Rate 12.0 12.0 10/26/18 10/26/18 10/26/18 10/26/18 14:00 15:00 16:00 16:00 Temp 99.7 99.7 Pulse 83 84 90 Resp 12 12 10 B/P (MAP) 136/62 (86) 148/76 (100) 160/78 (105) Pulse Ox 99 99 99 O2 Delivery apap with trach apap with trach Bi-pap avap with trach O2 Flow Rate 12.0 12.0 10/26/18 10/26/18 10/26/18 10/26/18 16:15 16:26 17:00 18:00 Pulse 84 84 92 Resp 10 10 B/P (MAP) 148/76 149/76 (100) 176/69 (104) Pulse Ox 99 95 95 O2 Delivery Ventilator apap with trach apap with trach 10/26/18 10/26/18 10/26/18 10/26/18 19:00 20:00 20:00 20:05 Temp 99.2 99.2 Pulse 92 94 Resp 14 14 B/P (MAP) 176/69 (104) Pulse Ox 98 95 99 O2 Delivery apap with trach apap with trach Bi-pap Ventilator 10/26/18 10/26/18 10/26/18 10/26/18 20:40 20:40 21:00 22:00 Pulse 93 93 96 80 Resp 12 B/P (MAP) 172/69 172/69 176/69 (104) 141/75 (97) Pulse Ox 98 99 O2 Delivery apap with trach apap with trach 10/26/18 10/26/18 10/27/18 10/27/18 23:00 23:04 00:00 00:00 Temp 98.9 98.9 Pulse 87 87 Resp 12 16 B/P (MAP) 155/70 (98) 157/67 (97) Pulse Ox 98 99 97 O2 Delivery apap with trach Ventilator Bi-pap apap with trach 10/27/18 10/27/18 10/27/18 10/27/18 01:00 01:15 02:00 03:00 Pulse 99 84 90 Resp 10 11 12 B/P (MAP) 136/61 (86) 137/71 (93) 144/67 (92) Pulse Ox 99 98 97 98 O2 Delivery apap with trach Ventilator apap with trach apap with trach 10/27/18 10/27/18 10/27/18 10/27/18 04:00 04:00 04:00 05:00 Temp 98.4 98.4 Pulse 90 96 Resp 18 13 B/P (MAP) 141/67 (91) 166/75 (105) Pulse Ox 98 98 99 O2 Delivery Ventilator Bi-pap apap with trach apap with trach 10/27/18 10/27/18 10/27/18 10/27/18 05:30 06:00 06:35 08:46 Pulse 88 88 Resp 27 B/P (MAP) 161/66 (97) 161/66 Pulse Ox 99 97 98 O2 Delivery Ventilator apap with trach Ventilator Intake and Output 10/26/18 10/26/18 10/27/18 15:00 23:00 07:00 Intake Total 660 ml 1060 ml 50 ml Output Total 450 ml 300 ml Balance 660 ml 610 ml -250 ml SOL FATIMA MD Oct 27, 2018 09:31
--- NOTE | 2018-10-27 09:45 | PDOC ---
PULMONARY PROGRESS NOTES Subjective REMAINS ON AVAPS Vitals Vital Signs Date Time Temp Pulse Resp B/P (MAP) Pulse Ox O2 Delivery O2 Flow Rate FiO2 10/27/18 08:46 98 Ventilator 10/27/18 06:35 88 161/66 10/27/18 06:00 27 10/27/18 04:00 98.4 98.4 10/26/18 15:00 12.0 General: No acute distress Lungs: Other (decrease bs) Cardiovascular: S1, S2 Abdomen: Soft, Non-tender Extremities: Other (edema) Labs Laboratory Tests Test 10/25/18 17:35 10/25/18 17:52 10/25/18 19:48 10/25/18 21:53 White Blood Count 7.4 x10^3/uL (4.0-11.0) Red Blood Count 4.42 x10^6/uL (3.50-5.40) Hemoglobin 13.3 g/dL (12.0-15.5) Hematocrit 42.0 % (36.0-47.0) Mean Corpuscular Volume 95 fL (79-100) Mean Corpuscular Hemoglobin 30 pg (25-35) Mean Corpuscular Hemoglobin Concent 32 g/dL (31-37) Red Cell Distribution Width 15.1 % (11.5-14.5) Platelet Count 271 x10^3/uL (140-400) Neutrophils (%) (Auto) 83 % (31-73) Lymphocytes (%) (Auto) 10 % (24-48) Monocytes (%) (Auto) 6 % (0-9) Eosinophils (%) (Auto) 0 % (0-3) Basophils (%) (Auto) 1 % (0-3) Neutrophils # (Auto) 6.1 x10^3uL (1.8-7.7) Lymphocytes # (Auto) 0.7 x10^3/uL (1.0-4.8) Monocytes # (Auto) 0.5 x10^3/uL (0.0-1.1) Eosinophils # (Auto) 0.0 x10^3/uL (0.0-0.7) Basophils # (Auto) 0.0 x10^3/uL (0.0-0.2) Sodium Level 144 mmol/L (136-145) Potassium Level 4.2 mmol/L (3.5-5.1) Chloride Level 97 mmol/L (98-107) Carbon Dioxide Level > 45 mmol/L (21-32) Anion Gap (6-14) Blood Urea Nitrogen 24 mg/dL (7-20) Creatinine 0.3 mg/dL (0.6-1.0) Estimated GFR (Cockcroft-Gault) 221.9 BUN/Creatinine Ratio 80 (6-20) Glucose Level 152 mg/dL (70-99) Lactic Acid Level 1.8 mmol/L (0.4-2.0) Calcium Level 9.4 mg/dL (8.5-10.1) Total Bilirubin 0.2 mg/dL (0.2-1.0) Aspartate Amino Transf (AST/SGOT) 19 U/L (15-37) Alanine Aminotransferase (ALT/SGPT) 21 U/L (14-59) Alkaline Phosphatase 82 U/L (46-116) Troponin I Quantitative < 0.017 ng/mL (0.000-0.055) BE-Vbh-T-Type Natriuretic Peptide 48 pg/mL (0-124) Total Protein 8.0 g/dL (6.4-8.2) Albumin 3.1 g/dL (3.4-5.0) Albumin/Globulin Ratio 0.6 (1.0-1.7) Urine Collection Type U cath Urine Color Red Urine Clarity Turbid Urine pH 6.0 Urine Specific [place] 1.025 Urine Protein 100 mg/dL (NEG-TRACE) Urine Glucose (UA) Negative mg/dL (NEG) Urine Ketones (Stick) Trace mg/dL (NEG) Urine Blood Large (NEG) Urine Nitrite Positive (NEG) Urine Bilirubin Negative (NEG) Urine Urobilinogen Dipstick 1.0 mg/dL (0.2 mg/dL) Urine Leukocyte Esterase Large (NEG) Urine RBC Tntc /HPF (0-2) Urine WBC >40 /HPF (0-4) Urine Squamous Epithelial Cells None /LPF Urine Bacteria Many /HPF (0-FEW) O2 Saturation 91 % (92-99) 92 % (92-99) Arterial Blood pH 7.34 (7.35-7.45) 7.54 (7.35-7.45) Arterial Blood pH (Temp corrected) 7.35 Arterial Blood pCO2 at Patient Temp 106 mmHg (35-46) 46 mmHg (35-46) Arterial Blood pCO2 (Temp correct) 103 mmHg Arterial Blood pO2 at Patient Temp 64 mmHg (65-108) 55 mmHg (65-108) Arterial Blood pO2 (Temp corrected) 61 mmHg Arterial Blood HCO3 56 mmol/L (21-28) 38 mmol/L (21-28) Arterial Blood Base Excess 24 mmol/L (-3-3) 14 mmol/L (-3-3) FiO2 50 60 Test 10/25/18 22:05 10/26/18 04:40 10/26/18 08:40 10/26/18 09:00 Nasal Screen MRSA (PCR) Negative (Negative) Lactic Acid Level 3.8 mmol/L (0.4-2.0) 3.2 mmol/L (0.4-2.0) O2 Saturation 95 % (92-99) Arterial Blood pH 7.60 (7.35-7.45) Arterial Blood pCO2 at Patient Temp 40 mmHg (35-46) Arterial Blood pO2 at Patient Temp 64 mmHg (65-108) Arterial Blood HCO3 38 mmol/L (21-28) Arterial Blood Base Excess 15 mmol/L (-3-3) FiO2 70 Test 10/27/18 05:37 10/27/18 07:55 Creatinine 0.4 mg/dL (0.6-1.0) Estimated GFR (Cockcroft-Gault) 159.2 Prothrombin Time 13.7 SEC (11.7-14.0) Prothromb Time International Ratio 1.1 (0.8-1.1) Activated Partial Thromboplast Time 24 SEC (24-38) Laboratory Tests Test 10/27/18 05:37 10/27/18 07:55 Creatinine 0.4 mg/dL (0.6-1.0) Estimated GFR (Cockcroft-Gault) 159.2 Prothrombin Time 13.7 SEC (11.7-14.0) Prothromb Time International Ratio 1.1 (0.8-1.1) Activated Partial Thromboplast Time 24 SEC (24-38) Medications Active Scripts Medications Dose Route/Sig Max Daily Dose Days Date Category Dose Instructions Cardizem Tablet (Diltiazem Hcl) 30 Mg Tablet 30 Mg PO HS PRN 10/26/18 Reported Enema Ready To Use (Na Phos,M-B/Na Phos,Di-Ba) 133 Ml Enema 133 Ml RC 01/30/17 Reported Acetaminophen 500 Mg Tablet 1 Tab PO Q6HRS 01/30/17 Reported Probiotic Plus & Cranberry Cap (Cran/C/B.coag/Fos/L.acid/L.rha) 1 Each Capsule 1 Each PO BID 01/30/17 Reported Azithromycin Tablet (Azithromycin) 250 Mg Tablet 250 Mg PO DAILY 01/30/17 Reported Estradiol Transdermal Patch (Estradiol) 1 Each Patch.tdwk 1 Each TD BID WEEKLY 01/30/17 Reported Next dose 06/30/17 Karishma (Norethindrone) 0.35 Mg Tablet 0.35 Mg PO DAILY 01/30/17 Reported Keppra (Levetiracetam) 500 Mg Tablet 750 Mg PO BID 01/30/17 Reported Cardizem Tablet (Diltiazem Hcl) 60 Mg Tablet 60 Mg PO DAILY16 06/12/15 Reported Metoprolol Tartrate 25 Mg Tablet 1 Tab PO BID 12/28/14 Reported Xopenex (Levalbuterol Hcl) 0.63 Mg/3 Ml Vial.neb 1 Vial NEB TID 12/27/14 Reported Valium (Diazepam) 2 Mg Tablet 2 Mg PO TID 10/11/13 Reported Transderm-Scop (Scopolamine) 1 Each Patch.td72 1 Each TD Q3DAYS 07/28/13 Reported Indication: secretions Next dose: 06/30/17 am Nystop (Nystatin) 60 Gm Powder 60 Gm TP PRN 07/28/13 Reported Indication: rash NExt dose: as needed Levalbuterol Hcl 0.63 Mg/3 Ml Vial.neb 0.63 Mg IH TID 07/28/13 Reported Spiriva (Tiotropium [place]) 18 Mcg Cap.w.dev 18 Mcg IH DAILY 07/28/13 Reported Diltiazem Hcl Tablet (Diltiazem Hcl) 60 Mg Tablet 60 Mg PO DAILY07 07/28/13 Reported Provigil (Modafinil) 200 Mg Tablet 200 Mg PO DAILY 07/28/13 Reported Paxil (Paroxetine Hcl) 10 Mg/5 Ml Oral.susp 10 Mg PO DAILY 07/28/13 Reported Baclofen 10 Mg Tablet 10 Mg PO TID 07/28/13 Reported Impression . 1. Acute on chronic hypercapnic and hypoxic respiratory failure secondary to multifactorial etiologies including sepsis related to urinary tract infection and increasing bilateral pleural effusions. 2. The patient with severe/advanced multiple sclerosis with chronic respiratory failure. 3. The patient with prior thoracentesis and prior multiple bronchoscopies. now with increasing bilateral effusions 4. Fever related to sepsis./ UTI Plan . 1. Continue with present AVAPS. I have adjusted IPAP and respiratory rate and follow up ABGs now shows corrected respiratory alkalosis. 2. Continue broad-spectrum antibiotics. 3. Follow blood cultures. 4. The patient would benefit from thoracentesis. I will consult IR. d/w . Agree. scheduled today 5. Follow chest x-rays, post thoracentesis. 6. Would also recommend discussion of goals of care 7. enteral nutrition 8. Consider nocturnal Triligy at home ANA HOLLIDAY MD Oct 27, 2018 09:45
[2018-10-27 09:50] LABS: FIO2 ABG 40
--- NOTE | 2018-10-27 10:07 | PDOC2 ---
BHAVYAFREDY Kadi PHARMACEUTICAL PLANT OPERATOR 10/27/18 1006: UROLOGY CONSULT Date of Consult Date of Consult DATE: 10/27/18 TIME: 09:55 Reason for Consult Reason for Consult: SP tube, medical team looking for guidance regarding infection prevention Source Source: Caregiver, Chart review History of Present Illness Reason for Visit: This 68 year old female patient with history of advanced MS with tracheostomy tube in place brought in by EMS because of hypoxia and generalized weakness. Patient lives at home with high efficiency care from her mother who called 911 for hypoxia at 70s and decrease of orientation and alertness. She is non verbal and unable to given history, so all information obtained from chart for this visit and also from [facility]'s UROCHART system, as she is a patient of Dr. Butch Birmingham , [facility] Urologist at [facility]. Urology was consulted for the presence of SP tubing and also concerns over infection prevention. Past Medical History Cardiovascular: AFIB Pulmonary: Pneumonia CENTRAL NERVOUS SYSTEM: Dementia, Seizure, Other (advance multiple sclerosisx) GI: GERD Psych: Anxiety Musculoskeletal: Osteoarthritis Renal/: Other (neurogenic bladder) Past Surgical History Past Surgical History: Other (baclofen pump, unilateral nephrectomy; suprapubic cath placement; peg, trach) Family History Family History: Hypertension Social History No ALCOHOL: none Drugs: None Lives: with Family Domestic Violence: Neg Current Medications Current Medications Current Medications Acetaminophen (Tylenol) 500 mg PRN Q6HRS PRN PO MILD PAIN / TEMP; Start at 11:30 Albuterol Sulfate (Ventolin Neb Soln) 2.5 mg PRN TID PRN NEB SHORTNESS OF BREATH; Start 10/26/18 at 11:30 Albuterol/ Ipratropium (Duoneb) 3 ml RTQID NEB Last administered on 10/27/18at 08:00; Start 10/26/18 at 12:00 Aspirin (Children'S Aspirin) 81 mg DAILYWBKFT PO Last administered on at 08:36; Start 10/26/18 at 14:30 Azithromycin (Zithromax) 250 mg DAILY PO ; Start 10/27/18 at 09:00; Status UNV Baclofen (Lioresal) 10 mg TID PO Last administered on 10/27/18at 08:36; Start at 14:00 Diazepam (Valium) 2 mg TID PO Last administered on 10/27/18at 08:36; Start at 14:00 Diltiazem HCl (Cardizem) 30 mg QHS PO Last administered on 10/26/18at 20:40; Start 10/26/18 at 21:00 Diltiazem HCl (Cardizem) 60 mg DAILY07 PO Last administered on 10/27/18at 06:35 ; Start 10/27/18 at 07:00 Diltiazem HCl (Cardizem) 60 mg DAILY16 PO Last administered on 10/26/18at 16:26; Start 10/26/18 at 16:00 Estradiol (Climara Weekly) 1 mg WEEKLY TD ; Start 11/02/18 at 09:00 Levetiracetam (Keppra) 750 mg BID PO Last administered on 10/27/18at 08:39; Start 10/26/18 at 12:00 Metoprolol Tartrate (Lopressor) 25 mg BID PO Last administered on 10/26/18at 20: 40; Start 10/26/18 at 12:00 Non-Formulary Medication (Cran/C/B.coag/ Fos/L.acid/L.rha (Probiotic Plus & Cranberry Cap)) 1 each BID PO ; Start 10/26/18 at 21:00; Status UNV Non-Formulary Medication (Levalbuterol Hcl (Xopenex)) 1 vial TID NEB ; Start 10/26/18 at 14:00; Status UNV Non-Formulary Medication (Levalbuterol Hcl ) 0.63 mg TID IH ; Start 10/26/18 at 14:00; Status UNV Non-Formulary Medication (Modafinil (Provigil)) 200 mg DAILY PO ; Start at 09:00; Status UNV Non-Formulary Medication (Norethindrone (Karishma)) 0.35 mg DAILY PO ; Start 10/27 at 09:00; Status UNV Non-Formulary Medication (Tiotropium [place] (Spiriva)) 18 mcg DAILY IH ; Start 10/27/18 at 09:00; Status UNV Nystatin (Nystop) 1 parag PRN BID PRN TP RASH; Start 10/26/18 at 11:15 Paroxetine HCl (Paxil) 10 mg DAILY PO Last administered on 10/27/18at 08:36; Start 10/26/18 at 12:00 Scopolamine (Transderm-Scop) 1 patch Q3DAYS TD Last administered on 10/27/18at 08:37; Start 10/27/18 at 09:00 Sodium Monofluorophosphate (Fleet Adult) 133 ml DAILY PRN RC constipation; Start 10/26/18 at 11:15 Vancomycin HCl (Vancomycin Trough Level) 1 each 1X ONCE MC ; Start 10/28/18 at 09:00; Stop 10/28/18 at 09:01 Vancomycin HCl 1 gm/Sodium Chloride 250 ml @ 250 mls/hr Q24H IV ; Start at 09:30 Allergies Allergies: Coded Allergies: No Known Drug Allergies (Unverified , 01/05/15) ROS Review Of Systems: Unable to obtain at this time, patient non verbal Physical Exam Physical Exam: General: Make eye contact with examiner, non verbal. Eyes: conjunctiva anicteric, eyes full range of motion ENT: moist oral mucosa, normal dentition Neck: Trachea midline, no masses Respiratory: unlabored breathing, not using accessory muscles, Abdomen: Distented abdomen, firm to touch with SP tubing in place. Skin: no rashes or skin lesions on visualized skin Psych: normal mood, affect. Alert and oriented x 3. Vitals VITALS Vital Signs Date Time Temp Pulse Resp B/P (MAP) Pulse Ox O2 Delivery O2 Flow Rate FiO2 10/27/18 08:46 98 Ventilator 10/27/18 06:35 88 161/66 10/27/18 06:00 27 10/27/18 04:00 98.4 98.4 10/26/18 15:00 12.0 Labs Labs Laboratory Tests Test 10/25/18 17:35 10/25/18 17:52 10/25/18 19:48 10/25/18 21:53 White Blood Count 7.4 x10^3/uL (4.0-11.0) Red Blood Count 4.42 x10^6/uL (3.50-5.40) Hemoglobin 13.3 g/dL (12.0-15.5) Hematocrit 42.0 % (36.0-47.0) Mean Corpuscular Volume 95 fL (79-100) Mean Corpuscular Hemoglobin 30 pg (25-35) Mean Corpuscular Hemoglobin Concent 32 g/dL (31-37) Red Cell Distribution Width 15.1 % (11.5-14.5) Platelet Count 271 x10^3/uL (140-400) Neutrophils (%) (Auto) 83 % (31-73) Lymphocytes (%) (Auto) 10 % (24-48) Monocytes (%) (Auto) 6 % (0-9) Eosinophils (%) (Auto) 0 % (0-3) Basophils (%) (Auto) 1 % (0-3) Neutrophils # (Auto) 6.1 x10^3uL (1.8-7.7) Lymphocytes # (Auto) 0.7 x10^3/uL (1.0-4.8) Monocytes # (Auto) 0.5 x10^3/uL (0.0-1.1) Eosinophils # (Auto) 0.0 x10^3/uL (0.0-0.7) Basophils # (Auto) 0.0 x10^3/uL (0.0-0.2) Sodium Level 144 mmol/L (136-145) Potassium Level 4.2 mmol/L (3.5-5.1) Chloride Level 97 mmol/L (98-107) Carbon Dioxide Level > 45 mmol/L (21-32) Anion Gap (6-14) Blood Urea Nitrogen 24 mg/dL (7-20) Creatinine 0.3 mg/dL (0.6-1.0) Estimated GFR (Cockcroft-Gault) 221.9 BUN/Creatinine Ratio 80 (6-20) Glucose Level 152 mg/dL (70-99) Lactic Acid Level 1.8 mmol/L (0.4-2.0) Calcium Level 9.4 mg/dL (8.5-10.1) Total Bilirubin 0.2 mg/dL (0.2-1.0) Aspartate Amino Transf (AST/SGOT) 19 U/L (15-37) Alanine Aminotransferase (ALT/SGPT) 21 U/L (14-59) Alkaline Phosphatase 82 U/L (46-116) Troponin I Quantitative < 0.017 ng/mL (0.000-0.055) PQ-Tzo-S-Type Natriuretic Peptide 48 pg/mL (0-124) Total Protein 8.0 g/dL (6.4-8.2) Albumin 3.1 g/dL (3.4-5.0) Albumin/Globulin Ratio 0.6 (1.0-1.7) Urine Collection Type U cath Urine Color Red Urine Clarity Turbid Urine pH 6.0 Urine Specific [place] 1.025 Urine Protein 100 mg/dL (NEG-TRACE) Urine Glucose (UA) Negative mg/dL (NEG) Urine Ketones (Stick) Trace mg/dL (NEG) Urine Blood Large (NEG) Urine Nitrite Positive (NEG) Urine Bilirubin Negative (NEG) Urine Urobilinogen Dipstick 1.0 mg/dL (0.2 mg/dL) Urine Leukocyte Esterase Large (NEG) Urine RBC Tntc /HPF (0-2) Urine WBC >40 /HPF (0-4) Urine Squamous Epithelial Cells None /LPF Urine Bacteria Many /HPF (0-FEW) O2 Saturation 91 % (92-99) 92 % (92-99) Arterial Blood pH 7.34 (7.35-7.45) 7.54 (7.35-7.45) Arterial Blood pH (Temp corrected) 7.35 Arterial Blood pCO2 at Patient Temp 106 mmHg (35-46) 46 mmHg (35-46) Arterial Blood pCO2 (Temp correct) 103 mmHg Arterial Blood pO2 at Patient Temp 64 mmHg (65-108) 55 mmHg (65-108) Arterial Blood pO2 (Temp corrected) 61 mmHg Arterial Blood HCO3 56 mmol/L (21-28) 38 mmol/L (21-28) Arterial Blood Base Excess 24 mmol/L (-3-3) 14 mmol/L (-3-3) FiO2 50 60 Test 10/25/18 22:05 10/26/18 04:40 10/26/18 08:40 10/26/18 09:00 Nasal Screen MRSA (PCR) Negative (Negative) Lactic Acid Level 3.8 mmol/L (0.4-2.0) 3.2 mmol/L (0.4-2.0) O2 Saturation 95 % (92-99) Arterial Blood pH 7.60 (7.35-7.45) Arterial Blood pCO2 at Patient Temp 40 mmHg (35-46) Arterial Blood pO2 at Patient Temp 64 mmHg (65-108) Arterial Blood HCO3 38 mmol/L (21-28) Arterial Blood Base Excess 15 mmol/L (-3-3) FiO2 70 Test 10/27/18 05:37 10/27/18 07:55 10/27/18 09:00 Creatinine 0.4 mg/dL (0.6-1.0) Estimated GFR (Cockcroft-Gault) 159.2 Prothrombin Time 13.7 SEC (11.7-14.0) Prothromb Time International Ratio 1.1 (0.8-1.1) Activated Partial Thromboplast Time 24 SEC (24-38) O2 Saturation 93 % (92-99) Arterial Blood pH 7.43 (7.35-7.45) Arterial Blood pCO2 at Patient Temp 56 mmHg (35-46) Arterial Blood pO2 at Patient Temp 71 mmHg (65-108) Arterial Blood HCO3 36 mmol/L (21-28) Arterial Blood Base Excess 10 mmol/L (-3-3) FiO2 40 Laboratory Tests Test 10/27/18 05:37 10/27/18 07:55 10/27/18 09:00 Creatinine 0.4 mg/dL (0.6-1.0) Estimated GFR (Cockcroft-Gault) 159.2 Prothrombin Time 13.7 SEC (11.7-14.0) Prothromb Time International Ratio 1.1 (0.8-1.1) Activated Partial Thromboplast Time 24 SEC (24-38) O2 Saturation 93 % (92-99) Arterial Blood pH 7.43 (7.35-7.45) Arterial Blood pCO2 at Patient Temp 56 mmHg (35-46) Arterial Blood pO2 at Patient Temp 71 mmHg (65-108) Arterial Blood HCO3 36 mmol/L (21-28) Arterial Blood Base Excess 10 mmol/L (-3-3) FiO2 40 Assessment/Plan Assessment/Plan After review of records, it does not seem like patient had a problem with chronic SP tube infections until recently. Some colonization of SP tubing is normal. Do not recommend obtaining further UA 's unless she is running fevers, has an elevated white count, or is otherwise symptomatic She is getting SP changes q 3 weeks, continue. Nursing did say they would ask the family when her last SP change was when they arrived today. If she continues to develop infections, consider q 2 week sp tubing changes. Follow up with Dr. Birmingham of [facility] at discharge. Will follow. JENNIFER VITAL MD 10/27/18 1235: UROLOGY CONSULT Assessment/Plan Assessment/Plan I agree with plan of care. FREDY LATIF PHARMACEUTICAL PLANT OPERATOR Oct 27, 2018 10:06 JENNIFER VITAL MD Oct 27, 2018 12:35
[2018-10-27] MEDS: METOPROLOL TART IMMED RELEASE 25 MG TABLET. PO SCH ×2 (10:10→21:05)
[2018-10-27] MEDS: VANCOMYCIN 1 GM in IV NORMAL SALINE 250ML 250 ML IV SCH (10:11)
[2018-10-27] MEDS: VANCOMYCIN PER PHARMACY MC PRN (10:50)
[2018-10-27] MEDS: NYSTATIN SUSPENSION PO PRN (10:57)
--- NOTE | 2018-10-27 12:27 | NUR ---
IR at the bedside to do bilat thoracentesis because patient's pulse ox decreased to 88% when attempting to take her to the IR department.
[2018-10-28] VITALS (24 sets, daily range): BP systolic 85–163; BP diastolic 45–77
[2018-10-28] MEDS: PIPERACILLIN/TAZOBACTAM 3.375 GM in IV NORMAL SALINE 50ML 50 ML IV SCH ×4 (00:06→17:34)
[2018-10-28 06:21] LABS: CREATININE 0.3 mg/dL (0.6-1.0); GFR 221.9
[2018-10-28] MEDS: dilTIAZem HCL 30 MG TABLET PO SCH ×3 (07:30→21:41)
--- NOTE | 2018-10-28 08:17 | PDOC ---
Infectious Disease Note Subjective Subjective sedated on vent ROS ROS no vomiting, fever Vital Sign Vital Signs Vital Signs Date Time Temp Pulse Resp B/P (MAP) Pulse Ox O2 Delivery O2 Flow Rate FiO2 10/28/18 08:02 95 Ventilator 10/28/18 07:30 86 111/55 10/28/18 07:00 11 10/28/18 04:00 99.5 99.5 Physical Exam PHYSICAL EXAM GENERAL: female, nodes, on vent VITAL SIGNS: stable HEENT: Both pupils are round and reacting. No conjunctival lesion. No oral lesion. NECK: Supple. No JVP. Tracheostomy in place. LUNGS: Bilateral decreased breath sounds. HEART: S1 and S2 regular. No gallop or murmur. ABDOMEN: Soft and nontender. PEG tube is in place, suprapubic catheter is in place. EXTREMITIES: No edema or cyanosis. Loss of muscle mass. NEUROLOGICAL: awake, nodes, quadruplegic SKIN: Unremarkable. Labs Lab Laboratory Tests Test 10/27/18 09:00 10/27/18 12:45 10/27/18 14:45 10/28/18 05:30 O2 Saturation 93 % (92-99) Arterial Blood pH 7.43 (7.35-7.45) Arterial Blood pCO2 at Patient Temp 56 mmHg (35-46) Arterial Blood pO2 at Patient Temp 71 mmHg (65-108) Arterial Blood HCO3 36 mmol/L (21-28) Arterial Blood Base Excess 10 mmol/L (-3-3) FiO2 40 Body Fluid pH 7.38 7.42 Creatinine 0.3 mg/dL (0.6-1.0) Estimated GFR (Cockcroft-Gault) 221.9 Micro BLOOD CULTURE Final GRAM POSITIVE COCCI IN CLUSTERS, SUGGESTIVE OF STAPH, IN 1 OF 2 BOTTLES, ONE SET DRAWN ON 10/25/18 CALLED TO LELA ARRIAGA RN IN ICU AT 16:00 ON 10/26/18 DW MT SENT TO LAB [facility] FOR FURTHER WORKUP. Objective Assessment 1. Fever. 2. Lactic acidosis and sepsis. 3. Sepsis. 4. Hypercapnic respiratory failure. 5. Hypoxemia. 6. Multiple scleroses. 7. Suspected aspiration. 8. BC + 1/2 G + cocci Plan Plan of Care panculture vanc and zosyn supportive care check cultures DARWIN PITTS MD Oct 28, 2018 08:17
[2018-10-28] MEDS: PARoxetine 10 MG TABLET PO SCH (08:34)
[2018-10-28] MEDS: BACLOFEN 10 MG TABLET. PO SCH ×3 (08:34→21:42)
[2018-10-28] MEDS: diazePAM 2 MG TABLET PO SCH ×3 (08:34→21:41)
[2018-10-28] MEDS: levETIRAcetam 250 MG TABLET PO SCH ×2 (08:34→21:42)
[2018-10-28] MEDS: ASPIRIN CHEWABLE 81 MG TABLET. PO SCH (08:34)
[2018-10-28] MEDS: IPRATRPIUM/ALBUTEROL 0.5/2.5MG 3 ML NEBU. NEB SCH ×4 (08:38→20:35)
[2018-10-28 08:44] LABS: BASE EXCESS ABG 14 mmol/L (-3-3); HCO3 ABG 40 mmol/L (21-28); PCO2 ABG 57 mmHg (35-46); PO2 ABG 79 mmHg (65-108); SAT O2 ABG 95 % (92-99)
[2018-10-28] MEDS: METOPROLOL TART IMMED RELEASE 25 MG TABLET. PO SCH ×2 (08:46→21:43)
--- NOTE | 2018-10-28 08:50 | PDOC ---
PROGRESS NOTES Chief Complaint Chief Complaint Acute on chronic respiratory failure Bialteral pleural effusion, Advanced multiple sclerosis, tracheostomy, history of seizures, PEG tube, baclofen pump, colostomy Plan: thoracentesis yesterday with evacuation of greater than 1 liter of pleural fluid , will follow after procedure. Goals of therapy should be addressed again, this has been done in the past unsuccessfully, seems to be keen on continuing with the present care despite patient's quality of life being null supportive measures wound care resume home meds farther recommendations based on clinical course. History of Present Illness History of Present Illness Patient on the mechanical ventilation tracheostomy in place unable to have conversation with the patient responding to verbal stimuli, no acute events reported overnight. She seems quite debilitated but this seems to be her baseline she seems somewhat imrpoved compared to yesterday, plan of care discussed in detail. Vitals Vitals Vital Signs Date Time Temp Pulse Resp B/P (MAP) Pulse Ox O2 Delivery O2 Flow Rate FiO2 10/28/18 08:46 82 103/49 10/28/18 08:02 95 Ventilator 10/28/18 07:00 11 10/28/18 04:00 99.5 99.5 Physical Exam Physical Exam GENERAL: female, nodes, on vent VITAL SIGNS: stable HEENT: Both pupils are round and reacting. No conjunctival lesion. No oral lesion. NECK: Supple. No JVP. Tracheostomy in place. LUNGS: Bilateral decreased breath sounds. HEART: S1 and S2 regular. No gallop or murmur. ABDOMEN: Soft and nontender. PEG tube is in place, suprapubic catheter is in place. EXTREMITIES: No edema or cyanosis. Loss of muscle mass. NEUROLOGICAL: awake, nodes, quadruplegic SKIN: Unremarkable. General: Alert, No acute distress Heart: Regular rate (SR), Other (distnat heart sounds) Lungs: Other (decrease bs) Abdomen: Soft Extremities: Other (generalized edema trace to 1+) Skin: Other (suprapubic cath, PEG tube in place, trach site intact) Labs LABS Laboratory Tests Test 10/27/18 09:00 10/27/18 12:45 10/27/18 14:45 10/28/18 05:30 O2 Saturation 93 % (92-99) Arterial Blood pH 7.43 (7.35-7.45) Arterial Blood pCO2 at Patient Temp 56 mmHg (35-46) Arterial Blood pO2 at Patient Temp 71 mmHg (65-108) Arterial Blood HCO3 36 mmol/L (21-28) Arterial Blood Base Excess 10 mmol/L (-3-3) FiO2 40 Body Fluid pH 7.38 7.42 Creatinine 0.3 mg/dL (0.6-1.0) Estimated GFR (Cockcroft-Gault) 221.9 Assessment and Plan Assessmemt and Plan Problems Medical Problems: (1) Hypercapnic respiratory failure Status: Acute Comment Review of Relevant I have reviewed the following items lucila (where applicable) has been applied. Labs Laboratory Tests Test 10/26/18 09:00 10/27/18 05:37 10/27/18 07:55 10/27/18 09:00 Lactic Acid Level 3.2 mmol/L (0.4-2.0) Creatinine 0.4 mg/dL (0.6-1.0) Estimated GFR (Cockcroft-Gault) 159.2 Prothrombin Time 13.7 SEC (11.7-14.0) Prothromb Time International Ratio 1.1 (0.8-1.1) Activated Partial Thromboplast Time 24 SEC (24-38) O2 Saturation 93 % (92-99) Arterial Blood pH 7.43 (7.35-7.45) Arterial Blood pCO2 at Patient Temp 56 mmHg (35-46) Arterial Blood pO2 at Patient Temp 71 mmHg (65-108) Arterial Blood HCO3 36 mmol/L (21-28) Arterial Blood Base Excess 10 mmol/L (-3-3) FiO2 40 Test 10/27/18 12:45 10/27/18 14:45 10/28/18 05:30 Body Fluid pH 7.38 7.42 Creatinine 0.3 mg/dL (0.6-1.0) Estimated GFR (Cockcroft-Gault) 221.9 Laboratory Tests Test 10/27/18 09:00 10/27/18 12:45 10/27/18 14:45 10/28/18 05:30 O2 Saturation 93 % (92-99) Arterial Blood pH 7.43 (7.35-7.45) Arterial Blood pCO2 at Patient Temp 56 mmHg (35-46) Arterial Blood pO2 at Patient Temp 71 mmHg (65-108) Arterial Blood HCO3 36 mmol/L (21-28) Arterial Blood Base Excess 10 mmol/L (-3-3) FiO2 40 Body Fluid pH 7.38 7.42 Creatinine 0.3 mg/dL (0.6-1.0) Estimated GFR (Cockcroft-Gault) 221.9 Microbiology 10/26/18 Blood Culture - Preliminary, Resulted NO GROWTH AFTER 2 DAYS 10/25/18 Urine Culture - Preliminary, Resulted 10/25/18 Urine Culture Result 1 (NANDO) - Preliminary, Resulted Medications Current Medications Sodium Chloride 1,000 ml @ 1,000 mls/hr Q1H IV Last administered on 10/25/18at 19:04; Start 10/25/18 at 17:28; Stop 10/25/18 at 18:27; Status DC Albuterol/ Ipratropium (Duoneb) 3 ml 1X ONCE NEB Last administered on at 17:53; Start 10/25/18 at 17:30; Stop 10/25/18 at 17:31; Status DC Methylprednisolone Sodium Succinate (SOLU-Medrol 125MG VIAL) 125 mg 1X ONCE IV Last administered on 10/25/18at 19:04; Start 10/25/18 at 17:30; Stop 10/25/18 at 17:31; Status DC Ceftriaxone Sodium (Rocephin) 1 gm 1X ONCE IVP Last administered on 10/25/18at 20:24; Start 10/25/18 at 19:00; Stop 10/25/18 at 19:02; Status DC Ondansetron HCl (Zofran) 4 mg PRN Q8HRS PRN IV NAUSEA/VOMITING; Start 10/25/18 at 20:15; Stop 10/26/18 at 20:14; Status DC Sodium Chloride 1,000 ml @ 126 mls/hr Q7H57M IV ; Start 10/25/18 at 20:07; Stop 10/26/18 at 07:12; Status DC Acetaminophen (Tylenol) 650 mg 1X ONCE PEG Last administered on 10/26/18at 04:59 ; Start 10/26/18 at 04:30; Stop 10/26/18 at 04:32; Status DC Piperacillin Sod/ Tazobactam Sod (Zosyn Per Pharmacy) 1 each PRN DAILY PRN MC SEE COMMENTS; Start 10/26/18 at 07:15 Vancomycin HCl (Vanco Per Pharmacy) 1 each PRN DAILY PRN MC SEE COMMENTS Last administered on 10/27/18at 10:50; Start 10/26/18 at 07:15 Piperacillin Sod/ Tazobactam Sod 3.375 gm/Sodium Chloride 50 ml @ 100 mls/hr Q6HRS IV Last administered on 10/28/18at 06:05; Start 10/26/18 at 08:00 Vancomycin HCl 1.75 gm/Sodium Chloride 500 ml @ 250 mls/hr 1X ONCE IV Last administered on 10/26/18at 09:25; Start 10/26/18 at 08:00; Stop 10/26/18 at 09:59; Status DC Azithromycin (Zithromax) 250 mg DAILY PO ; Start 10/27/18 at 09:00; Status UNV Baclofen (Lioresal) 10 mg TID PO Last administered on 10/28/18at 08:34; Start at 14:00 Diazepam (Valium) 2 mg TID PO Last administered on 10/28/18at 08:34; Start at 14:00 Diltiazem HCl (Cardizem) 30 mg QHS PO Last administered on 10/27/18at 21:04; Start 10/26/18 at 21:00 Estradiol (Climara Weekly) 1 mg WEEKLY TD ; Start 11/02/18 at 09:00 Levetiracetam (Keppra) 750 mg BID PO Last administered on 10/28/18at 08:34; Start 10/26/18 at 12:00 Metoprolol Tartrate (Lopressor) 25 mg BID PO Last administered on 10/27/18at 21: 05; Start 10/26/18 at 12:00 Sodium Monofluorophosphate (Fleet Adult) 133 ml DAILY PRN RC constipation; Start 10/26/18 at 11:15 Nystatin (Nystop) 1 parag PRN BID PRN TP RASH; Start 10/26/18 at 11:15; Stop 10/27 at 10:35; Status DC Acetaminophen (Tylenol) 500 mg PRN Q6HRS PRN PO MILD PAIN / TEMP; Start at 11:30 Non-Formulary Medication (Cran/C/B.coag/ Fos/L.acid/L.rha (Probiotic Plus & Cranberry Cap)) 1 each BID PO ; Start 10/26/18 at 21:00; Status UNV Diltiazem HCl (Cardizem) 60 mg DAILY16 PO Last administered on 10/27/18at 17:12 ; Start 10/26/18 at 16:00 Diltiazem HCl (Cardizem) 60 mg DAILY07 PO Last administered on 10/28/18at 07:30 ; Start 10/27/18 at 07:00 Non-Formulary Medication (Levalbuterol Hcl ) 0.63 mg TID IH ; Start 10/26/18 at 14:00; Status UNV Non-Formulary Medication (Levalbuterol Hcl (Xopenex)) 1 vial TID NEB ; Start 10/26/18 at 14:00; Status UNV Non-Formulary Medication (Modafinil (Provigil)) 200 mg DAILY PO Last administered on 10/28/18at 08:42; Start 10/27/18 at 11:30 Non-Formulary Medication (Norethindrone (Karishma)) 0.35 mg DAILY PO ; Start 10/27 at 09:00; Status UNV Paroxetine HCl (Paxil) 10 mg DAILY PO Last administered on 10/28/18at 08:34; Start 10/26/18 at 12:00 Scopolamine (Transderm-Scop) 1 patch Q3DAYS TD Last administered on 10/27/18at 08:37; Start 10/27/18 at 09:00 Non-Formulary Medication (Tiotropium [place] (Spiriva)) 18 mcg DAILY IH ; Start 10/27/18 at 09:00; Status UNV Albuterol/ Ipratropium (Duoneb) 3 ml RTQID NEB Last administered on 10/28/18at 08:38; Start 10/26/18 at 12:00 Albuterol Sulfate (Ventolin Neb Soln) 2.5 mg PRN TID PRN NEB SHORTNESS OF BREATH; Start 10/26/18 at 11:30 Vancomycin HCl 1 gm/Sodium Chloride 250 ml @ 250 mls/hr Q24H IV Last administered on 10/27/18at 10:11; Start 10/27/18 at 09:30 Vancomycin HCl (Vancomycin Trough Level) 1 each 1X ONCE MC ; Start 10/28/18 at 09:00; Stop 10/28/18 at 09:01 Aspirin (Children'S Aspirin) 81 mg DAILYWBKFT PO Last administered on at 08:34; Start 10/26/18 at 14:30 Non-Formulary Medication 1 ea PRN TID PRN PO APPLY TO AFFECTED AREA Last administered on 10/27/18at 10:57; Start 10/27/18 at 11:00 Active Scripts Active Reported Cardizem Tablet (Diltiazem Hcl) 30 Mg Tablet 30 Mg PO HS PRN Enema Ready To Use (Na Phos,M-B/Na Phos,Di-Ba) 133 Ml Enema 133 Ml RC Acetaminophen 500 Mg Tablet 1 Tab PO Q6HRS Probiotic Plus & Cranberry Cap (Cran/C/B.coag/Fos/L.acid/L.rha) 1 Each Capsule 1 Each PO BID Azithromycin Tablet (Azithromycin) 250 Mg Tablet 250 Mg PO DAILY Estradiol Transdermal Patch (Estradiol) 1 Each Patch.tdwk 1 Each TD BID WEEKLY Next dose 06/30/17 Karishma (Norethindrone) 0.35 Mg Tablet 0.35 Mg PO DAILY Keppra (Levetiracetam) 500 Mg Tablet 750 Mg PO BID Cardizem Tablet (Diltiazem Hcl) 60 Mg Tablet 60 Mg PO DAILY16 Metoprolol Tartrate 25 Mg Tablet 1 Tab PO BID Xopenex (Levalbuterol Hcl) 0.63 Mg/3 Ml Vial.neb 1 Vial NEB TID Valium (Diazepam) 2 Mg Tablet 2 Mg PO TID Transderm-Scop (Scopolamine) 1 Each Patch.td72 1 Each TD Q3DAYS Indication: secretions Next dose: 06/30/17 am Nystop (Nystatin) 60 Gm Powder 60 Gm TP PRN Indication: rash NExt dose: as needed Levalbuterol Hcl 0.63 Mg/3 Ml Vial.neb 0.63 Mg IH TID Spiriva (Tiotropium [place]) 18 Mcg Cap.w.dev 18 Mcg IH DAILY Diltiazem Hcl Tablet (Diltiazem Hcl) 60 Mg Tablet 60 Mg PO DAILY07 Provigil (Modafinil) 200 Mg Tablet 200 Mg PO DAILY Paxil (Paroxetine Hcl) 10 Mg/5 Ml Oral.susp 10 Mg PO DAILY Baclofen 10 Mg Tablet 10 Mg PO TID Vitals/I & O Vital Sign - Last 24 Hours 10/27/18 10/27/18 10/27/18 10/27/18 09:00 10:00 10:10 11:00 Pulse 103 102 99 102 Resp 14 24 24 B/P (MAP) 154/65 (94) 155/61 (92) 151/62 155/61 (92) Pulse Ox 100 95 95 O2 Delivery apap with trach apap with trach apap with trach 10/27/18 10/27/18 10/27/18 10/27/18 12:00 12:00 12:10 13:00 Temp 98.6 98.6 Pulse 102 89 Resp 24 16 B/P (MAP) 124/63 (83) 109/49 (69) Pulse Ox 88 92 96 O2 Delivery apap with trach Bi-pap apap with trach 10/27/18 10/27/18 10/27/18 10/27/18 13:15 13:18 14:36 15:00 Pulse 87 100 Resp 12 12 B/P (MAP) 109/58 (75) 99/44 (62) Pulse Ox 96 98 99 94 O2 Delivery apap with trach Ventilator Ventilator apap with trach 10/27/18 10/27/18 10/27/18 10/27/18 15:46 16:00 16:00 17:00 Temp 100.5 100.5 Pulse 105 110 Resp 12 12 B/P (MAP) 98/48 (65) 109/47 (67) Pulse Ox 94 97 98 O2 Delivery Ventilator Bi-pap apap with trach apap with trach 10/27/18 10/27/18 10/27/18 10/27/18 17:12 17:15 18:00 19:00 Pulse 107 91 94 Resp 12 12 B/P (MAP) 109/47 120/50 (73) 139/63 (88) Pulse Ox 97 97 97 O2 Delivery Ventilator apap with trach apap with trach 10/27/18 10/27/18 10/27/18 10/27/18 20:00 20:00 20:14 21:00 Temp 98.1 98.1 Pulse 96 84 Resp 15 13 B/P (MAP) 131/65 (87) 129/56 (80) Pulse Ox 94 98 95 O2 Delivery Bi-pap apap with trach Ventilator apap with trach 10/27/18 10/27/18 10/27/18 10/27/18 21:04 21:05 22:00 23:00 Pulse 102 102 82 84 Resp 12 10 B/P (MAP) 129/56 129/56 131/57 (81) 108/53 (71) Pulse Ox 97 97 O2 Delivery apap with trach apap with trach 10/27/18 10/27/18 10/28/18 10/28/18 23:58 23:59 00:00 01:00 Temp 99.3 99.3 Pulse 93 92 Resp 9 18 B/P (MAP) 163/65 (97) 134/63 (86) Pulse Ox 98 97 98 O2 Delivery Ventilator Bi-pap apap with trach apap with trach 10/28/18 10/28/18 10/28/18 10/28/18 02:00 02:13 03:00 03:59 Pulse 86 85 Resp 12 10 B/P (MAP) 156/77 (103) 138/55 (82) Pulse Ox 98 98 95 96 O2 Delivery apap with trach Ventilator apap with trach Ventilator 10/28/18 10/28/18 10/28/18 10/28/18 04:00 04:00 05:00 06:00 Temp 99.5 99.5 Pulse 81 87 94 Resp 18 13 10 B/P (MAP) 85/55 (65) 98/51 (67) 114/59 (77) Pulse Ox 96 96 96 O2 Delivery apap with trach Bi-pap apap with trach apap with trach 10/28/18 10/28/18 10/28/18 10/28/18 07:00 07:30 08:02 08:46 Pulse 89 86 82 Resp 11 B/P (MAP) 111/55 (73) 111/55 103/49 Pulse Ox 95 95 O2 Delivery apap with trach Ventilator Intake and Output 10/27/18 10/27/18 10/28/18 14:59 22:59 06:59 Intake Total 874 ml 100 ml 950 ml Output Total 1950 ml 690 ml 350 ml Balance -1076 ml -590 ml 600 ml SOL FATIMA MD Oct 28, 2018 08:50
[2018-10-28 09:11] LABS: FIO2 ABG 40
--- NOTE | 2018-10-28 09:32 | PDOC ---
PULMONARY PROGRESS NOTES Subjective ON , AVAPS overnight, alert, sob better, no cough, no pain, Vitals Vital Signs Date Time Temp Pulse Resp B/P (MAP) Pulse Ox O2 Delivery O2 Flow Rate FiO2 10/28/18 09:00 92 18 113/59 (77) 93 Tracheal Collar 10/28/18 08:00 99.6 99.6 Comments as mentioned as above other sys otherwise neg ROS: No Nausea, No Chest Pain General: Alert, No acute distress HEENT: Other (nc at perrl nose throat clear, neck, trach site ok no lad, no thyromegaly) Lungs: Other (decrease bs) Cardiovascular: S1, S2 Abdomen: Soft, Non-tender, Other (no mass) Neuro Exam: Alert Extremities: Other (edema) Skin: Warm Labs Laboratory Tests Test 10/27/18 05:37 10/27/18 07:55 10/27/18 09:00 10/27/18 12:45 Creatinine 0.4 mg/dL (0.6-1.0) Estimated GFR (Cockcroft-Gault) 159.2 Prothrombin Time 13.7 SEC (11.7-14.0) Prothromb Time International Ratio 1.1 (0.8-1.1) Activated Partial Thromboplast Time 24 SEC (24-38) O2 Saturation 93 % (92-99) Arterial Blood pH 7.43 (7.35-7.45) Arterial Blood pCO2 at Patient Temp 56 mmHg (35-46) Arterial Blood pO2 at Patient Temp 71 mmHg (65-108) Arterial Blood HCO3 36 mmol/L (21-28) Arterial Blood Base Excess 10 mmol/L (-3-3) FiO2 40 Body Fluid pH 7.38 Test 10/27/18 14:45 10/28/18 05:30 10/28/18 08:00 Body Fluid pH 7.42 Creatinine 0.3 mg/dL (0.6-1.0) Estimated GFR (Cockcroft-Gault) 221.9 O2 Saturation 95 % (92-99) Arterial Blood pH 7.46 (7.35-7.45) Arterial Blood pCO2 at Patient Temp 57 mmHg (35-46) Arterial Blood pO2 at Patient Temp 79 mmHg (65-108) Arterial Blood HCO3 40 mmol/L (21-28) Arterial Blood Base Excess 14 mmol/L (-3-3) FiO2 40 Laboratory Tests Test 10/27/18 12:45 10/27/18 14:45 10/28/18 05:30 10/28/18 08:00 Body Fluid pH 7.38 7.42 Creatinine 0.3 mg/dL (0.6-1.0) Estimated GFR (Cockcroft-Gault) 221.9 O2 Saturation 95 % (92-99) Arterial Blood pH 7.46 (7.35-7.45) Arterial Blood pCO2 at Patient Temp 57 mmHg (35-46) Arterial Blood pO2 at Patient Temp 79 mmHg (65-108) Arterial Blood HCO3 40 mmol/L (21-28) Arterial Blood Base Excess 14 mmol/L (-3-3) FiO2 40 Medications Active Scripts Medications Dose Route/Sig Max Daily Dose Days Date Category Dose Instructions Cardizem Tablet (Diltiazem Hcl) 30 Mg Tablet 30 Mg PO HS PRN 10/26/18 Reported Enema Ready To Use (Na Phos,M-B/Na Phos,Di-Ba) 133 Ml Enema 133 Ml RC 01/30/17 Reported Acetaminophen 500 Mg Tablet 1 Tab PO Q6HRS 01/30/17 Reported Probiotic Plus & Cranberry Cap (Cran/C/B.coag/Fos/L.acid/L.rha) 1 Each Capsule 1 Each PO BID 01/30/17 Reported Azithromycin Tablet (Azithromycin) 250 Mg Tablet 250 Mg PO DAILY 01/30/17 Reported Estradiol Transdermal Patch (Estradiol) 1 Each Patch.tdwk 1 Each TD BID WEEKLY 01/30/17 Reported Next dose 06/30/17 Karishma (Norethindrone) 0.35 Mg Tablet 0.35 Mg PO DAILY 01/30/17 Reported Keppra (Levetiracetam) 500 Mg Tablet 750 Mg PO BID 01/30/17 Reported Cardizem Tablet (Diltiazem Hcl) 60 Mg Tablet 60 Mg PO DAILY16 06/12/15 Reported Metoprolol Tartrate 25 Mg Tablet 1 Tab PO BID 12/28/14 Reported Xopenex (Levalbuterol Hcl) 0.63 Mg/3 Ml Vial.neb 1 Vial NEB TID 12/27/14 Reported Valium (Diazepam) 2 Mg Tablet 2 Mg PO TID 10/11/13 Reported Transderm-Scop (Scopolamine) 1 Each Patch.td72 1 Each TD Q3DAYS 07/28/13 Reported Indication: secretions Next dose: 06/30/17 am Nystop (Nystatin) 60 Gm Powder 60 Gm TP PRN 07/28/13 Reported Indication: rash NExt dose: as needed Levalbuterol Hcl 0.63 Mg/3 Ml Vial.neb 0.63 Mg IH TID 07/28/13 Reported Spiriva (Tiotropium [place]) 18 Mcg Cap.w.dev 18 Mcg IH DAILY 07/28/13 Reported Diltiazem Hcl Tablet (Diltiazem Hcl) 60 Mg Tablet 60 Mg PO DAILY07 07/28/13 Reported Provigil (Modafinil) 200 Mg Tablet 200 Mg PO DAILY 07/28/13 Reported Paxil (Paroxetine Hcl) 10 Mg/5 Ml Oral.susp 10 Mg PO DAILY 07/28/13 Reported Baclofen 10 Mg Tablet 10 Mg PO TID 07/28/13 Reported Comments cxr reviewed, 1. New right upper extremity PICC line with tip at the cavoatrial junction 2. Moderate bilateral pleural effusions with underlying atelectasis Impression . 1. Acute on chronic hypercapnic and hypoxic respiratory failure secondary to multifactorial etiologies including sepsis related to urinary tract infection and increasing bilateral pleural effusions. 2. The patient with severe/advanced multiple sclerosis with chronic respiratory failure. 3. The patient with prior thoracentesis and prior multiple bronchoscopies. now with increasing bilateral effusions 4. Fever related to sepsis./ UTI Plan . 1. Continue with present AVAPS prn during day, continuously at night. abg reviewed, 2. Continue broad-spectrum antibiotics. 3. Follow blood cultures. 4. s/p thoracentesis. transudate, fu pf studies 5. Follow chest x-rays, post thoracentesis. 6. Would also recommend discussion of goals of care 7. enteral nutrition 8. Consider nocturnal Triligy at home 9. BD, praneeth w rn, rt SHYAM ALCARAZ MD Oct 28, 2018 09:32
--- NOTE | 2018-10-28 09:33 | PDOC ---
SUBJECTIVE Subjective Pt does make eye contact, shakes head "yes" and "no" to questions. Also mouths words "yes" and "no." Much more alert than yesterday. Per attending RN patient had her SP tubing changed when she first came in on the . OBJECTIVE Objective Physical Exam: General appearance: Alert and shaking head "yes and no to questions. Also mouths words "yes" and "no" Head: Normocephalic, without obvious abnormality Eyes: conjunctivae/corneas clear. PERRL, EOM's intact. Fundi benign Lungs: Regular respirations with vent assistance. Abdomen: + SP tubing in place draining clear yellow urine. Site is CDI. Smalls in good working order Vital Signs Vital Signs Date Time Temp Pulse Resp B/P (MAP) Pulse Ox O2 Delivery O2 Flow Rate FiO2 10/28/18 09:00 92 18 113/59 (77) 93 Tracheal Collar 10/28/18 08:46 82 103/49 10/28/18 08:02 95 Ventilator 10/28/18 08:00 Bi-pap 10/28/18 08:00 99.6 82 13 103/49 (67) 94 apap with trach 99.6 10/28/18 07:30 86 111/55 10/28/18 07:00 89 11 111/55 (73) 95 apap with trach 10/28/18 06:00 94 10 114/59 (77) 96 apap with trach 10/28/18 05:00 87 13 98/51 (67) 96 apap with trach 10/28/18 04:00 Bi-pap 10/28/18 04:00 99.5 81 18 85/55 (65) 96 apap with trach 99.5 10/28/18 03:59 96 Ventilator 10/28/18 03:00 85 10 138/55 (82) 95 apap with trach 10/28/18 02:13 98 Ventilator 10/28/18 02:00 86 12 156/77 (103) 98 apap with trach 10/28/18 01:00 92 18 134/63 (86) 98 apap with trach 10/28/18 00:00 99.3 93 9 163/65 (97) 97 apap with trach 99.3 10/27/18 23:59 Bi-pap 10/27/18 23:58 98 Ventilator 10/27/18 23:00 84 10 108/53 (71) 97 apap with trach 10/27/18 22:00 82 12 131/57 (81) 97 apap with trach 10/27/18 21:05 102 129/56 10/27/18 21:04 102 129/56 10/27/18 21:00 84 13 129/56 (80) 95 apap with trach 10/27/18 20:14 98 Ventilator 10/27/18 20:00 98.1 96 15 131/65 (87) 94 apap with trach 98.1 10/27/18 20:00 Bi-pap 10/27/18 19:00 94 12 139/63 (88) 97 apap with trach 10/27/18 18:00 91 12 120/50 (73) 97 apap with trach 10/27/18 17:15 97 Ventilator 10/27/18 17:12 107 109/47 10/27/18 17:00 110 12 109/47 (67) 98 apap with trach 10/27/18 16:00 100.5 105 12 98/48 (65) 97 apap with trach 100.5 10/27/18 16:00 Bi-pap 10/27/18 15:46 94 Ventilator 10/27/18 15:00 100 12 99/44 (62) 94 apap with trach 10/27/18 14:36 99 Ventilator 10/27/18 13:18 98 Ventilator 10/27/18 13:15 87 12 109/58 (75) 96 apap with trach 10/27/18 13:00 98.6 89 16 109/49 (69) 96 apap with trach 98.6 10/27/18 12:10 92 10/27/18 12:00 Bi-pap 10/27/18 12:00 102 24 124/63 (83) 88 apap with trach 10/27/18 11:00 102 24 155/61 (92) 95 apap with trach 10/27/18 10:10 99 151/62 10/27/18 10:00 102 24 155/61 (92) 95 apap with trach I & O Intake and Output 10/28/18 06:59 Intake Total 1924 ml Output Total 2990 ml Balance -1066 ml IV Total 400 ml Tube Feeding 1024 ml Blood Product 100 ml Other 400 ml Output Urine Total 800 ml Gastric Drainage Total 340 ml Chest Tube Drainage Total 1850 ml PHYSICAL EXAM Physical Exam Physical Exam: General appearance: Alert and shaking head "yes and no to questions. Also mouths words "yes" and "no" Head: Normocephalic, without obvious abnormality Eyes: conjunctivae/corneas clear. PERRL, EOM's intact. Fundi benign Lungs: Regular respirations with vent assistance. Abdomen: + SP tubing in place draining clear yellow urine. Site is CDI. Smalls in good working order ASSESSMENT/PLAN Assessment/Plan SP tubing is due 11/15/18 per q 3 week schedule since it was last changed on . Continue local hygiene and maintenance of SP site. After review of records, it does not seem like patient had a problem with chronic SP tube infections until recently. Some colonization of SP tubing is normal. Do not recommend obtaining further UA 's unless she is running fevers, has an elevated white count, or is otherwise symptomatic If she continues to develop infections, consider q 2 week sp tubing changes. Follow up with Dr. [place] of [facility] [place]. Will follow peripherally while in house. COMMENT Lab Laboratory Tests Test 10/27/18 12:45 10/27/18 14:45 10/28/18 05:30 10/28/18 08:00 Body Fluid pH 7.38 7.42 Creatinine 0.3 mg/dL (0.6-1.0) Estimated GFR (Cockcroft-Gault) 221.9 O2 Saturation 95 % (92-99) Arterial Blood pH 7.46 (7.35-7.45) Arterial Blood pCO2 at Patient Temp 57 mmHg (35-46) Arterial Blood pO2 at Patient Temp 79 mmHg (65-108) Arterial Blood HCO3 40 mmol/L (21-28) Arterial Blood Base Excess 14 mmol/L (-3-3) FiO2 40 FREDY LATIF APRN Oct 28, 2018 09:33
[2018-10-28] MEDS: VANCOMYCIN 1 GM in IV NORMAL SALINE 250ML 250 ML IV SCH (09:51)
[2018-10-28 10:02] LABS: VANC TR 4.2 mcg/mL (10.0-20.0)
[2018-10-28] MEDS: VANCOMYCIN PER PHARMACY MC PRN (10:36)
--- NOTE | 2018-10-28 10:37 | NUR ---
Pharmacy Vancomycin Dosing Note S:Consulted to monitor and dose vancomycin started 10/26/18. O:MINNIE BENZ is a 68 year old F with Sepsis Fever, resp failure . Height: 5 feet, 2 inches Weight: 69.972141 kg [place] Body Weight: 50.10 Adjusted Body Weight: 57.66 Dosing Weight: Actual Other Antibiotics: zosyn LABS: Last BUN: 24 Last Creatinine: 0.3 Creatinine Clearance: 50 mL/min Last WBC: 7.4 Last Procalcitonin: Tmax (past 24 hours): 99.6 Microbiology: BLOOD: GPC SUGGESTIVE OF STAPH I/O: 1924/2990 Drug Levels: Last Trough level: 4.2 on 10/28/18 at 0855 Last dose given 10/27/18 at 1011 Vancomycin Dosing: Loading Dose: 1750 mg x1 Dosing Weight: Actual Target Trough: 15-20 A: Based on: Subtherapeutic trough P: 1. Increase to Vancomycin 1250 mg IV q12h 2. Follow up Trough level on 10/29/18 at 2130 3. Pharmacy will continue to monitor, follow and adjust therapy as needed. NU BROWN RPH, 10/28/18 1037
--- NOTE | 2018-10-28 15:19 | RAD ---
Ultrasound-guided bilateral thoracentesis 10/28/2018 3:14 PM Indication: BILATERAL PLEURAL EFFUSIONS Procedure: Informed consent was obtained. A timeout procedure was performed. Sonographic evaluation of the bilateral chest was performed demonstrating moderate pleural effusions bilaterally. The bilateral posterior chest was prepped and draped in sterile fashion. 1% lidocaine without epinephrine was administered for local anesthesia. Real-time ultrasonographic guidance was used in passing a 5 [place] Yueh catheter into the bilateral pleural space. 100 cc removed on the left, 750 cc removed on the right. Samples were sent for further evaluation per ordering physician request. Catheters were removed and manual pressure held. Sterile dressings were applied. Impression: Bilateral ultrasound-guided thoracentesis
--- NOTE | 2018-10-28 16:26 | RAD ---
EXAM: CHEST 1 VIEW History: Respiratory failure COMPARISON: 10/26/2018 TECHNIQUE: Single portable radiograph of the chest FINDINGS: Tracheostomy tube in place. Low lung volumes and technique accentuates heart size and pulmonary vascularity. Right-sided PICC line is again identified. Improved congestive changes with interval decrease in bilateral pleural effusions. Persistent bibasilar lung airspace opacities likely atelectasis or infiltrates and small pleural effusions. IMPRESSION: 1. Improved congestive changes with improved bibasilar lung airspace opacities likely atelectasis or infiltrates and small bilateral pleural effusions. Electronically signed by: Kyrie Wagner MD (10/28/2018 4:23 PM) [id number]
[2018-10-28] MEDS: VANCOMYCIN 1.25 GM in IV NORMAL SALINE 250ML 250 ML IV SCH (22:31)
[2018-10-29] VITALS (24 sets, daily range): BP systolic 97–161; BP diastolic 48–75
[2018-10-29] MEDS: PIPERACILLIN/TAZOBACTAM 3.375 GM in IV NORMAL SALINE 50ML 50 ML IV SCH ×5 (05:54→17:48)
[2018-10-29 06:17] LABS: CREATININE 0.4 mg/dL (0.6-1.0); GFR 159.2
--- NOTE | 2018-10-29 06:27 | PDOC ---
PULMONARY PROGRESS NOTES Subjective ON AVAPS overnight, alert at times per rn, large trach secretion Vitals Vital Signs Date Time Temp Pulse Resp B/P (MAP) Pulse Ox O2 Delivery O2 Flow Rate FiO2 10/29/18 05:35 94 BiPAP/CPAP 10/29/18 05:00 79 15 109/54 (72) 10/29/18 04:00 98.5 98.5 Comments as mentioned as above other sys otherwise neg ROS: No Nausea, No Chest Pain General: Alert, No acute distress HEENT: Other (nc at perrl nose throat clear, neck, trach site ok no lad, no thyromegaly) Lungs: Other (decrease bs) Cardiovascular: S1, S2 Abdomen: Soft, Non-tender, Other (no mass) Neuro Exam: Alert Extremities: Other (edema) Skin: Warm Labs Laboratory Tests Test 10/27/18 07:55 10/27/18 09:00 10/27/18 12:45 10/27/18 12:46 Prothrombin Time 13.7 SEC (11.7-14.0) Prothromb Time International Ratio 1.1 (0.8-1.1) Activated Partial Thromboplast Time 24 SEC (24-38) O2 Saturation 93 % (92-99) Arterial Blood pH 7.43 (7.35-7.45) Arterial Blood pCO2 at Patient Temp 56 mmHg (35-46) Arterial Blood pO2 at Patient Temp 71 mmHg (65-108) Arterial Blood HCO3 36 mmol/L (21-28) Arterial Blood Base Excess 10 mmol/L (-3-3) FiO2 40 Body Fluid pH 7.38 Body Fluid Glucose 183 mg/dL (.) Body Fluid Total Protein 4.4 g/dL (.) Body Fluid Lactate Dehydrogenase 157 IU/L (.) Test 10/27/18 14:45 10/28/18 05:30 10/28/18 08:00 10/28/18 08:55 Body Fluid pH 7.42 Body Fluid Glucose 176 mg/dL (.) Body Fluid Total Protein 4.3 g/dL (.) Body Fluid Lactate Dehydrogenase 97 IU/L (.) Creatinine 0.3 mg/dL (0.6-1.0) Estimated GFR (Cockcroft-Gault) 221.9 O2 Saturation 95 % (92-99) Arterial Blood pH 7.46 (7.35-7.45) Arterial Blood pCO2 at Patient Temp 57 mmHg (35-46) Arterial Blood pO2 at Patient Temp 79 mmHg (65-108) Arterial Blood HCO3 40 mmol/L (21-28) Arterial Blood Base Excess 14 mmol/L (-3-3) FiO2 40 Vancomycin Level Trough 4.2 mcg/mL (10.0-20.0) Vancomycin Last Dose Date 10/27/18 Vancomycin Last Dose Time 09 Test 10/29/18 05:30 Creatinine 0.4 mg/dL (0.6-1.0) Estimated GFR (Cockcroft-Gault) 159.2 Laboratory Tests Test 10/28/18 08:00 10/28/18 08:55 10/29/18 05:30 O2 Saturation 95 % (92-99) Arterial Blood pH 7.46 (7.35-7.45) Arterial Blood pCO2 at Patient Temp 57 mmHg (35-46) Arterial Blood pO2 at Patient Temp 79 mmHg (65-108) Arterial Blood HCO3 40 mmol/L (21-28) Arterial Blood Base Excess 14 mmol/L (-3-3) FiO2 40 Vancomycin Level Trough 4.2 mcg/mL (10.0-20.0) Vancomycin Last Dose Date 10/27/18 Vancomycin Last Dose Time 929 Creatinine 0.4 mg/dL (0.6-1.0) Estimated GFR (Cockcroft-Gault) 159.2 Medications Active Scripts Medications Dose Route/Sig Max Daily Dose Days Date Category Dose Instructions Cardizem Tablet (Diltiazem Hcl) 30 Mg Tablet 30 Mg PO HS PRN 10/26/18 Reported Enema Ready To Use (Na Phos,M-B/Na Phos,Di-Ba) 133 Ml Enema 133 Ml RC 01/30/17 Reported Acetaminophen 500 Mg Tablet 1 Tab PO Q6HRS 01/30/17 Reported Probiotic Plus & Cranberry Cap (Cran/C/B.coag/Fos/L.acid/L.rha) 1 Each Capsule 1 Each PO BID 01/30/17 Reported Azithromycin Tablet (Azithromycin) 250 Mg Tablet 250 Mg PO DAILY 01/30/17 Reported Estradiol Transdermal Patch (Estradiol) 1 Each Patch.tdwk 1 Each TD BID WEEKLY 01/30/17 Reported Next dose 06/30/17 Karishma (Norethindrone) 0.35 Mg Tablet 0.35 Mg PO DAILY 01/30/17 Reported Keppra (Levetiracetam) 500 Mg Tablet 750 Mg PO BID 01/30/17 Reported Cardizem Tablet (Diltiazem Hcl) 60 Mg Tablet 60 Mg PO DAILY16 06/12/15 Reported Metoprolol Tartrate 25 Mg Tablet 1 Tab PO BID 12/28/14 Reported Xopenex (Levalbuterol Hcl) 0.63 Mg/3 Ml Vial.neb 1 Vial NEB TID 12/27/14 Reported Valium (Diazepam) 2 Mg Tablet 2 Mg PO TID 10/11/13 Reported Transderm-Scop (Scopolamine) 1 Each Patch.td72 1 Each TD Q3DAYS 07/28/13 Reported Indication: secretions Next dose: 06/30/17 am Nystop (Nystatin) 60 Gm Powder 60 Gm TP PRN 07/28/13 Reported Indication: rash NExt dose: as needed Levalbuterol Hcl 0.63 Mg/3 Ml Vial.neb 0.63 Mg IH TID 07/28/13 Reported Spiriva (Tiotropium [place]) 18 Mcg Cap.w.dev 18 Mcg IH DAILY 07/28/13 Reported Diltiazem Hcl Tablet (Diltiazem Hcl) 60 Mg Tablet 60 Mg PO DAILY07 07/28/13 Reported Provigil (Modafinil) 200 Mg Tablet 200 Mg PO DAILY 07/28/13 Reported Paxil (Paroxetine Hcl) 10 Mg/5 Ml Oral.susp 10 Mg PO DAILY 07/28/13 Reported Baclofen 10 Mg Tablet 10 Mg PO TID 07/28/13 Reported Comments cxr reviewed, Improved congestive changes with improved bibasilar lung airspace opacities likely atelectasis or infiltrates and small bilateral pleural effusions. Impression . 1. Acute on chronic hypercapnic and hypoxic respiratory failure secondary to multifactorial etiologies including sepsis related to urinary tract infection and increasing bilateral pleural effusions. 2. The patient with severe/advanced multiple sclerosis with chronic respiratory failure. 3. The patient with prior thoracentesis and prior multiple bronchoscopies. now with increasing bilateral effusions 4. Fever related to sepsis./ UTI Plan . 1. Continue with present AVAPS prn during day, continuously at night. abg reviewed, 2. Continue broad-spectrum antibiotics. 3. Follow blood cultures. sputum cx 4. s/p thoracentesis. transudate, fu pf studies 5. Follow chest x-rays, post thoracentesis. 6. Would also recommend discussion of goals of care 7. enteral nutrition 8. Consider nocturnal Triligy at home 9. BD, praneeth w rn, rt SHYAM ALCARAZ MD Oct 29, 2018 06:27
--- NOTE | 2018-10-29 07:56 | PDOC ---
PROGRESS NOTES Chief Complaint Chief Complaint Acute on chronic respiratory failure Bialteral pleural effusion, Advanced multiple sclerosis, tracheostomy, history of seizures, PEG tube, baclofen pump, colostomy S.p thoracentesis > 1L Plan: supportive measures wound care resume home meds farther recommendations based on clinical course. History of Present Illness History of Present Illness Patient on the mechanical ventilation tracheostomy in place unable to have conversation with the patient responding to verbal stimuli, no acute events reported overnight. She seems quite debilitated but this seems to be her baseline she seems somewhat improved compared to yesterday, plan of care discussed in detail. Urine with enterococcus and pseudomonas, may need IV antibiotics due to resistances of both bugs. Will d/w ID possibly needs LTAC on d/c Vitals Vitals Vital Signs Date Time Temp Pulse Resp B/P (MAP) Pulse Ox O2 Delivery O2 Flow Rate FiO2 10/29/18 06:00 71 13 99/55 (70) 91 apap with trach 10/29/18 04:00 98.5 98.5 Physical Exam Physical Exam GENERAL: female, nodes, on vent VITAL SIGNS: stable HEENT: Both pupils are round and reacting. No conjunctival lesion. No oral lesion. NECK: Supple. No JVP. Tracheostomy in place. LUNGS: Bilateral decreased breath sounds. HEART: S1 and S2 regular. No gallop or murmur. ABDOMEN: Soft and nontender. PEG tube is in place, suprapubic catheter is in place. EXTREMITIES: No edema or cyanosis. Loss of muscle mass. NEUROLOGICAL: awake, nodes, quadruplegic SKIN: Unremarkable. General: Alert, No acute distress Heart: Regular rate (SR), Other (distnat heart sounds) Lungs: Other (decrease bs) Abdomen: Soft Extremities: Other (generalized edema trace to 1+) Skin: Other (suprapubic cath, PEG tube in place, trach site intact) Labs LABS Laboratory Tests Test 10/28/18 08:00 10/28/18 08:55 10/29/18 05:30 O2 Saturation 95 % (92-99) Arterial Blood pH 7.46 (7.35-7.45) Arterial Blood pCO2 at Patient Temp 57 mmHg (35-46) Arterial Blood pO2 at Patient Temp 79 mmHg (65-108) Arterial Blood HCO3 40 mmol/L (21-28) Arterial Blood Base Excess 14 mmol/L (-3-3) FiO2 40 Vancomycin Level Trough 4.2 mcg/mL (10.0-20.0) Vancomycin Last Dose Date 10/27/18 Vancomycin Last Dose Time 929 Creatinine 0.4 mg/dL (0.6-1.0) Estimated GFR (Cockcroft-Gault) 159.2 Assessment and Plan Assessmemt and Plan Problems Medical Problems: (1) Hypercapnic respiratory failure Status: Acute Comment Review of Relevant I have reviewed the following items lucila (where applicable) has been applied. Labs Laboratory Tests Test 10/27/18 09:00 10/27/18 12:45 10/27/18 12:46 10/27/18 14:45 O2 Saturation 93 % (92-99) Arterial Blood pH 7.43 (7.35-7.45) Arterial Blood pCO2 at Patient Temp 56 mmHg (35-46) Arterial Blood pO2 at Patient Temp 71 mmHg (65-108) Arterial Blood HCO3 36 mmol/L (21-28) Arterial Blood Base Excess 10 mmol/L (-3-3) FiO2 40 Body Fluid pH 7.38 7.42 Body Fluid Glucose 183 mg/dL (.) 176 mg/dL (.) Body Fluid Total Protein 4.4 g/dL (.) 4.3 g/dL (.) Body Fluid Lactate Dehydrogenase 157 IU/L (.) 97 IU/L (.) Test 10/28/18 05:30 10/28/18 08:00 10/28/18 08:55 10/29/18 05:30 Creatinine 0.3 mg/dL (0.6-1.0) 0.4 mg/dL (0.6-1.0) Estimated GFR (Cockcroft-Gault) 221.9 159.2 O2 Saturation 95 % (92-99) Arterial Blood pH 7.46 (7.35-7.45) Arterial Blood pCO2 at Patient Temp 57 mmHg (35-46) Arterial Blood pO2 at Patient Temp 79 mmHg (65-108) Arterial Blood HCO3 40 mmol/L (21-28) Arterial Blood Base Excess 14 mmol/L (-3-3) FiO2 40 Vancomycin Level Trough 4.2 mcg/mL (10.0-20.0) Vancomycin Last Dose Date 10/27/18 Vancomycin Last Dose Time 929 Laboratory Tests Test 10/28/18 08:00 10/28/18 08:55 10/29/18 05:30 O2 Saturation 95 % (92-99) Arterial Blood pH 7.46 (7.35-7.45) Arterial Blood pCO2 at Patient Temp 57 mmHg (35-46) Arterial Blood pO2 at Patient Temp 79 mmHg (65-108) Arterial Blood HCO3 40 mmol/L (21-28) Arterial Blood Base Excess 14 mmol/L (-3-3) FiO2 40 Vancomycin Level Trough 4.2 mcg/mL (10.0-20.0) Vancomycin Last Dose Date 10/27/18 Vancomycin Last Dose Time 929 Creatinine 0.4 mg/dL (0.6-1.0) Estimated GFR (Cockcroft-Gault) 159.2 Microbiology 10/26/18 Blood Culture - Preliminary, Resulted NO GROWTH AFTER 3 DAYS 10/27/18 Anaerobic/Aerobic Culture, Resulted Pending 10/27/18 Anaerobic Culture Result 1 (NANDO), Resulted Pending 10/27/18 Aerobic Culture, Resulted Pending 10/27/18 Aerobic Culture Result 1 (NANDO), Resulted Pending 10/27/18 Gram Stain - Final, Resulted 10/27/18 Gram Stain Result 1 (NANDO) - Final, Resulted 10/27/18 Gram Stain Result 2 (NANDO) - Final, Resulted 10/25/18 Urine Culture - Final, Complete 10/25/18 Urine Culture Result 1 (NANDO) - Final, Complete 10/25/18 Urine Culture Result 2 (NANDO) - Final, Complete 10/25/18 Antimicrobic Susceptibility - Final, Complete 10/27/18 Anaerobic/Aerobic Culture, Resulted Pending 10/27/18 Anaerobic Culture Result 1 (NANDO), Resulted Pending 10/27/18 Aerobic Culture, Resulted Pending 10/27/18 Aerobic Culture Result 1 (NANDO), Resulted Pending 10/27/18 Gram Stain - Final, Resulted 10/27/18 Gram Stain Result 1 (NANDO) - Final, Resulted 10/27/18 Gram Stain Result 2 (NANDO) - Final, Resulted Medications Current Medications Sodium Chloride 1,000 ml @ 1,000 mls/hr Q1H IV Last administered on 10/25/18at 19:04; Start 10/25/18 at 17:28; Stop 10/25/18 at 18:27; Status DC Albuterol/ Ipratropium (Duoneb) 3 ml 1X ONCE NEB Last administered on at 17:53; Start 10/25/18 at 17:30; Stop 10/25/18 at 17:31; Status DC Methylprednisolone Sodium Succinate (SOLU-Medrol 125MG VIAL) 125 mg 1X ONCE IV Last administered on 10/25/18at 19:04; Start 10/25/18 at 17:30; Stop 10/25/18 at 17:31; Status DC Ceftriaxone Sodium (Rocephin) 1 gm 1X ONCE IVP Last administered on 10/25/18at 20:24; Start 10/25/18 at 19:00; Stop 10/25/18 at 19:02; Status DC Ondansetron HCl (Zofran) 4 mg PRN Q8HRS PRN IV NAUSEA/VOMITING; Start 10/25/18 at 20:15; Stop 10/26/18 at 20:14; Status DC Sodium Chloride 1,000 ml @ 126 mls/hr Q7H57M IV ; Start 10/25/18 at 20:07; Stop 10/26/18 at 07:12; Status DC Acetaminophen (Tylenol) 650 mg 1X ONCE PEG Last administered on 10/26/18at 04:59 ; Start 10/26/18 at 04:30; Stop 10/26/18 at 04:32; Status DC Piperacillin Sod/ Tazobactam Sod (Zosyn Per Pharmacy) 1 each PRN DAILY PRN MC SEE COMMENTS; Start 10/26/18 at 07:15 Vancomycin HCl (Vanco Per Pharmacy) 1 each PRN DAILY PRN MC SEE COMMENTS Last administered on 10/28/18at 10:36; Start 10/26/18 at 07:15 Piperacillin Sod/ Tazobactam Sod 3.375 gm/Sodium Chloride 50 ml @ 100 mls/hr Q6HRS IV Last administered on 10/29/18at 05:54; Start 10/26/18 at 08:00 Vancomycin HCl 1.75 gm/Sodium Chloride 500 ml @ 250 mls/hr 1X ONCE IV Last administered on 10/26/18at 09:25; Start 10/26/18 at 08:00; Stop 10/26/18 at 09:59; Status DC Azithromycin (Zithromax) 250 mg DAILY PO ; Start 10/27/18 at 09:00; Status UNV Baclofen (Lioresal) 10 mg TID PO Last administered on 10/28/18 21:42; Start at 14:00 Diazepam (Valium) 2 mg TID PO Last administered on 10/28/18 21:41; Start at 14:00 Diltiazem HCl (Cardizem) 30 mg QHS PO Last administered on 10/28/18at 21:41; Start 10/26/18 at 21:00 Estradiol (Climara Weekly) 1 mg WEEKLY TD ; Start 11/02/18 at 09:00 Levetiracetam (Keppra) 750 mg BID PO Last administered on 10/28/18 21:42; Start 10/26/18 at 12:00 Metoprolol Tartrate (Lopressor) 25 mg BID PO Last administered on 10/28/18 21: 43; Start 10/26/18 at 12:00 Sodium Monofluorophosphate (Fleet Adult) 133 ml DAILY PRN RC constipation; Start 10/26/18 at 11:15 Nystatin (Nystop) 1 parag PRN BID PRN TP RASH; Start 10/26/18 at 11:15; Stop 10/27 at 10:35; Status DC Acetaminophen (Tylenol) 500 mg PRN Q6HRS PRN PO MILD PAIN / TEMP; Start at 11:30 Non-Formulary Medication (Cran/C/B.coag/ Fos/L.acid/L.rha (Probiotic Plus & Cranberry Cap)) 1 each BID PO ; Start 10/26/18 at 21:00; Status UNV Diltiazem HCl (Cardizem) 60 mg DAILY16 PO Last administered on 10/28/18at 15:26 ; Start 10/26/18 at 16:00 Diltiazem HCl (Cardizem) 60 mg DAILY07 PO Last administered on 10/28/18at 07:30 ; Start 10/27/18 at 07:00 Non-Formulary Medication (Levalbuterol Hcl ) 0.63 mg TID IH ; Start 10/26/18 at 14:00; Status UNV Non-Formulary Medication (Levalbuterol Hcl (Xopenex)) 1 vial TID NEB ; Start 10/26/18 at 14:00; Status UNV Non-Formulary Medication (Modafinil (Provigil)) 200 mg DAILY PO Last administered on 10/28/18 08:42; Start 10/27/18 at 11:30 Non-Formulary Medication (Norethindrone (Karishma)) 0.35 mg DAILY PO ; Start 10/27 at 09:00; Status UNV Paroxetine HCl (Paxil) 10 mg DAILY PO Last administered on 10/28/18 08:34; Start 10/26/18 at 12:00 Scopolamine (Transderm-Scop) 1 patch Q3DAYS TD Last administered on 10/27/18 08:37; Start 10/27/18 at 09:00 Non-Formulary Medication (Tiotropium [place] (Spiriva)) 18 mcg DAILY IH ; Start 10/27/18 at 09:00; Status UNV Albuterol/ Ipratropium (Duoneb) 3 ml RTQID NEB Last administered on 10/28/18at 20:35; Start 10/26/18 at 12:00 Albuterol Sulfate (Ventolin Neb Soln) 2.5 mg PRN TID PRN NEB SHORTNESS OF BREATH; Start 10/26/18 at 11:30 Vancomycin HCl 1 gm/Sodium Chloride 250 ml @ 250 mls/hr Q24H IV Last administered on 10/28/18 09:51; Start 10/27/18 at 09:30; Stop 10/28/18 at 12:00 ; Status DC Vancomycin HCl (Vancomycin Trough Level) 1 each 1X ONCE MC Last administered on 10/28/18at 09:00; Start 10/28/18 at 09:00; Stop 10/28/18 at 09:01; Status DC Aspirin (Children'S Aspirin) 81 mg DAILYWBKFT PO Last administered on 08:34; Start 10/26/18 at 14:30 Non-Formulary Medication 1 ea PRN TID PRN PO APPLY TO AFFECTED AREA Last administered on 10/27/18 10:57; Start 10/27/18 at 11:00 Vancomycin HCl 1.25 gm/Sodium Chloride 250 ml @ 167 mls/hr Q12H IV Last administered on 10/28/18 22:31; Start 10/28/18 at 22:00 Vancomycin HCl (Vancomycin Trough Level) 1 each 1X ONCE MC ; Start 10/29/18 at 21:30; Stop 10/29/18 at 21:31 Active Scripts Active Reported Cardizem Tablet (Diltiazem Hcl) 30 Mg Tablet 30 Mg PO HS PRN Enema Ready To Use (Na Phos,M-B/Na Phos,Di-Ba) 133 Ml Enema 133 Ml RC Acetaminophen 500 Mg Tablet 1 Tab PO Q6HRS Probiotic Plus & Cranberry Cap (Cran/C/B.coag/Fos/L.acid/L.rha) 1 Each Capsule 1 Each PO BID Azithromycin Tablet (Azithromycin) 250 Mg Tablet 250 Mg PO DAILY Estradiol Transdermal Patch (Estradiol) 1 Each Patch.tdwk 1 Each TD BID WEEKLY Next dose 06/30/17 Karishma (Norethindrone) 0.35 Mg Tablet 0.35 Mg PO DAILY Keppra (Levetiracetam) 500 Mg Tablet 750 Mg PO BID Cardizem Tablet (Diltiazem Hcl) 60 Mg Tablet 60 Mg PO DAILY16 Metoprolol Tartrate 25 Mg Tablet 1 Tab PO BID Xopenex (Levalbuterol Hcl) 0.63 Mg/3 Ml Vial.neb 1 Vial NEB TID Valium (Diazepam) 2 Mg Tablet 2 Mg PO TID Transderm-Scop (Scopolamine) 1 Each Patch.td72 1 Each TD Q3DAYS Indication: secretions Next dose: 06/30/17 am Nystop (Nystatin) 60 Gm Powder 60 Gm TP PRN Indication: rash NExt dose: as needed Levalbuterol Hcl 0.63 Mg/3 Ml Vial.neb 0.63 Mg IH TID Spiriva (Tiotropium [place]) 18 Mcg Cap.w.dev 18 Mcg IH DAILY Diltiazem Hcl Tablet (Diltiazem Hcl) 60 Mg Tablet 60 Mg PO DAILY07 Provigil (Modafinil) 200 Mg Tablet 200 Mg PO DAILY Paxil (Paroxetine Hcl) 10 Mg/5 Ml Oral.susp 10 Mg PO DAILY Baclofen 10 Mg Tablet 10 Mg PO TID Vitals/I & O Vital Sign - Last 24 Hours 10/28/18 10/28/18 10/28/18 10/28/18 08:00 08:00 08:02 08:46 Temp 99.6 99.6 Pulse 82 82 Resp 13 B/P (MAP) 103/49 (67) 103/49 Pulse Ox 94 95 O2 Delivery apap with trach Bi-pap Ventilator 10/28/18 10/28/18 10/28/18 10/28/18 09:00 10:00 11:00 11:59 Pulse 92 78 80 Resp 18 13 13 B/P (MAP) 113/59 (77) 147/74 (98) 98/56 (70) Pulse Ox 93 96 95 O2 Delivery Tracheal Collar apap with trach apap with trach Ventilator 10/28/18 10/28/18 10/28/18 10/28/18 12:00 12:00 12:28 13:00 Temp 98.7 98.7 Pulse 81 86 Resp 11 12 B/P (MAP) 99/56 (70) 113/62 (79) Pulse Ox 92 95 95 O2 Delivery apap with trach Bi-pap Ventilator apap with trach 10/28/18 10/28/18 10/28/18 10/28/18 14:00 15:00 15:03 15:26 Pulse 87 88 88 Resp 10 18 B/P (MAP) 111/61 (78) 106/53 (70) 106/53 Pulse Ox 94 93 93 O2 Delivery apap with trach apap with trach Ventilator 10/28/18 10/28/18 10/28/18 10/28/18 16:00 16:00 17:00 17:22 Temp 98.3 98.3 Pulse 82 79 Resp 13 13 B/P (MAP) 86/45 (59) 113/57 (75) Pulse Ox 95 97 98 O2 Delivery Bi-pap apap with trach apap with trach Ventilator 10/28/18 10/28/18 10/28/18 10/28/18 18:00 19:00 20:00 20:00 Temp 98.5 98.5 Pulse 79 82 74 Resp 11 11 10 B/P (MAP) 111/52 (71) 100/55 (70) 117/56 (76) Pulse Ox 97 98 98 O2 Delivery apap with trach apap with trach apap with trach Bi-pap 10/28/18 10/28/18 10/28/18 10/28/18 20:35 21:00 21:41 21:43 Pulse 74 71 75 Resp 10 B/P (MAP) 94/49 (64) 101/56 101/56 Pulse Ox 97 97 O2 Delivery BiPAP/CPAP apap with trach 10/28/18 10/28/18 10/28/1810/28/19 22:00 23:00 23:30 23:59 Pulse 72 71 Resp 13 13 B/P (MAP) 108/56 (73) 100/56 (71) Pulse Ox 97 96 97 O2 Delivery apap with trach apap with trach BiPAP/CPAP Bi-pap 10/29/18 10/29/18 10/29/18 10/29/18 00:00 01:00 02:00 02:19 Temp 98.1 98.1 Pulse 78 94 86 Resp 13 20 14 B/P (MAP) 109/58 (75) 138/75 (96) 128/60 (82) Pulse Ox 96 96 96 92 O2 Delivery apap with trach apap with trach apap with trach BiPAP/CPAP 10/29/18 10/29/18 10/29/18 10/29/18 03:00 04:00 04:00 05:00 Temp 98.5 98.5 Pulse 72 74 79 Resp 14 14 15 B/P (MAP) 102/56 (71) 161/70 (100) 109/54 (72) Pulse Ox 94 95 92 O2 Delivery apap with trach Bi-pap apap with trach apap with trach 10/29/18 10/29/18 05:35 06:00 Pulse 71 Resp 13 B/P (MAP) 99/55 (70) Pulse Ox 94 91 O2 Delivery BiPAP/CPAP apap with trach Intake and Output 10/28/18 10/28/18 10/29/18 15:00 23:00 07:00 Intake Total 300 ml 620 ml 1351 ml Output Total 150 ml 175 ml 225 ml Balance 150 ml 445 ml 1126 ml FLAQUITO LIRA MD Oct 29, 2018 07:56
[2018-10-29] MEDS: IPRATRPIUM/ALBUTEROL 0.5/2.5MG 3 ML NEBU. NEB SCH ×4 (08:03→19:49)
[2018-10-29] MEDS: PARoxetine 10 MG TABLET PO SCH (08:52)
[2018-10-29] MEDS: levETIRAcetam 250 MG TABLET PO SCH ×2 (08:52→20:55)
[2018-10-29] MEDS: VANCOMYCIN 1.25 GM in IV NORMAL SALINE 250ML 250 ML IV SCH (08:52)
[2018-10-29] MEDS: ASPIRIN CHEWABLE 81 MG TABLET. PO SCH (08:55)
[2018-10-29] MEDS: BACLOFEN 10 MG TABLET. PO SCH ×3 (08:55→20:56)
[2018-10-29] MEDS: dilTIAZem HCL 30 MG TABLET PO SCH ×3 (08:55→20:57)
[2018-10-29] MEDS: METOPROLOL TART IMMED RELEASE 25 MG TABLET. PO SCH ×2 (08:57→20:56)
[2018-10-29] MEDS: diazePAM 2 MG TABLET PO SCH ×3 (09:15→20:55)
--- NOTE | 2018-10-29 10:02 | PDOC ---
Infectious Disease Note Subjective Subjective sedated on vent ROS ROS no n/v/d/fever Vital Sign Vital Signs Vital Signs Date Time Temp Pulse Resp B/P (MAP) Pulse Ox O2 Delivery O2 Flow Rate FiO2 10/29/18 08:57 88 128/64 10/29/18 08:04 93 BiPAP/CPAP 10/29/18 06:00 13 10/29/18 04:00 98.5 98.5 Physical Exam PHYSICAL EXAM GENERAL: female, nodes, on vent VITAL SIGNS: stable HEENT: Both pupils are round and reacting. No conjunctival lesion. No oral lesion. NECK: Supple. No JVP. Tracheostomy in place. LUNGS: Bilateral decreased breath sounds. HEART: S1 and S2 regular. No gallop or murmur. ABDOMEN: Soft and nontender. PEG tube is in place, suprapubic catheter is in place. EXTREMITIES: No edema or cyanosis. Loss of muscle mass. NEUROLOGICAL: awake, nodes, quadruplegic SKIN: Unremarkable. Labs Lab Laboratory Tests Test 10/29/18 05:30 Creatinine 0.4 mg/dL (0.6-1.0) Estimated GFR (Cockcroft-Gault) 159.2 Micro URINE CULTURE Final Final report URINE CULTURE RES 1 Final Comment Pseudomonas aeruginosa Greater than 100,000 colony forming units per mL URINE CULTURE RES 2 Final Enterococcus faecalis 25,000-50,000 colony forming units per mL ANTIMICROBIAL SUSCEPTIBILITY Final Comment S = Susceptible; I = Intermediate; R = Resistant P = Positive; N = Negative MICS are expressed in micrograms per mL Antibiotic RSLT#1 RSLT#2 RSLT#3 RSLT#4 Amikacin S =16 Cefepime I =16 Ceftazidime S =4 Ciprofloxacin R>=4 R>=8 Gentamicin I =8 Imipenem S =4 Levofloxacin R>=8 R>=8 Meropenem S =1 Nitrofurantoin S<=16 Penicillin R =16 Piperacillin S =32 Tetracycline R>=16 Ticarcillin R>=128 Tobramycin S<=1 Vancomycin S =1 Performed at: [facility], [place], [place] [id number] Forensic Anthropologist: RELL Marques MD, Phone: [phone] Objective Assessment 1. Fever. 2. Lactic acidosis and sepsis. 3. Sepsis. 4. Hypercapnic respiratory failure. 5. Hypoxemia. 6. Multiple scleroses. 7. Suspected aspiration. 8. BC + 1/2 G + cocci 9 UTI Plan Plan of Care panculture vanc and zosyn supportive care check cultures DARWIN PITTS MD Oct 29, 2018 10:02
--- NOTE | 2018-10-29 10:56 | PDOC ---
SUBJECTIVE Subjective Pt makes eye contact with examiner, but mostly non verbal. doing well. Has a few questions about when to change SP tubing next. OBJECTIVE Objective General appearance: Alert and shaking head "yes and no to questions. Also mouths words "yes" and "no" Head: Normocephalic, without obvious abnormality Eyes: conjunctivae/corneas clear. PERRL, EOM's intact. Fundi benign Lungs: Regular respirations with vent assistance. Abdomen: + SP tubing in place draining clear yellow urine. Site is CDI. Smalls in good working order Vital Signs Vital Signs Date Time Temp Pulse Resp B/P (MAP) Pulse Ox O2 Delivery O2 Flow Rate FiO2 10/29/18 10:00 94 BiPAP/CPAP 10/29/18 08:57 88 128/64 10/29/18 08:55 92 107/52 10/29/18 08:04 93 BiPAP/CPAP 10/29/18 06:00 71 13 99/55 (70) 91 apap with trach 10/29/18 05:35 94 BiPAP/CPAP 10/29/18 05:00 79 15 109/54 (72) 92 apap with trach 10/29/18 04:00 98.5 74 14 161/70 (100) 95 apap with trach 98.5 10/29/18 04:00 Bi-pap 10/29/18 03:00 72 14 102/56 (71) 94 apap with trach 10/29/18 02:19 92 BiPAP/CPAP 10/29/18 02:00 86 14 128/60 (82) 96 apap with trach 10/29/18 01:00 94 20 138/75 (96) 96 apap with trach 10/29/18 00:00 98.1 78 13 109/58 (75) 96 apap with trach 98.1 10/28/18 23:59 Bi-pap 10/28/18 23:30 97 BiPAP/CPAP 10/28/18 23:00 71 13 100/56 (71) 96 apap with trach 10/28/18 22:00 72 13 108/56 (73) 97 apap with trach 10/28/18 21:43 75 101/56 10/28/18 21:41 71 101/56 10/28/18 21:00 74 10 94/49 (64) 97 apap with trach 10/28/18 20:35 97 BiPAP/CPAP 10/28/18 20:00 Bi-pap 10/28/18 20:00 74 10 117/56 (76) 98 apap with trach 10/28/18 19:00 98.5 82 11 100/55 (70) 98 apap with trach 98.5 10/28/18 18:00 79 11 111/52 (71) 97 apap with trach 10/28/18 17:22 98 Ventilator 10/28/18 17:00 79 13 113/57 (75) 97 apap with trach 10/28/18 16:00 98.3 82 13 86/45 (59) 95 apap with trach 98.3 10/28/18 16:00 Bi-pap 10/28/18 15:26 88 106/53 10/28/18 15:03 93 Ventilator 10/28/18 15:00 88 18 106/53 (70) 93 apap with trach 10/28/18 14:00 87 10 111/61 (78) 94 apap with trach 10/28/18 13:00 86 12 113/62 (79) 95 apap with trach 10/28/18 12:28 95 Ventilator 10/28/18 12:00 Bi-pap 10/28/18 12:00 98.7 81 11 99/56 (70) 92 apap with trach 98.7 10/28/18 11:59 Ventilator 10/28/18 11:00 80 13 98/56 (70) 95 apap with trach I & O Intake and Output 10/29/18 06:59 Intake Total 2271 ml Output Total 550 ml Balance 1721 ml IV Total 650 ml Tube Feeding 1021 ml Other 600 ml Output Urine Total 550 ml PHYSICAL EXAM Physical Exam General appearance: Alert and shaking head "yes and no to questions. Also mouths words "yes" and "no" Head: Normocephalic, without obvious abnormality Eyes: conjunctivae/corneas clear. PERRL, EOM's intact. Fundi benign Lungs: Regular respirations with vent assistance. Abdomen: + SP tubing in place draining clear yellow urine. Site is CDI. Smalls in good working order ASSESSMENT/PLAN Assessment/Plan SP tubing is due 11/15/18 per q 3 week schedule since it was last changed on . Continue local hygiene and maintenance of SP site. After review of records, it does not seem like patient had a problem with chronic SP tube infections until recently. did confirm that this is the first UTI she has gotten since the SP tube was put in in late 2018. Some colonization of SP tubing is normal. Do not recommend obtaining further UA 's unless she is running fevers, has an elevated white count, or is otherwise symptomatic If she continues to develop infections, consider q 2 week sp tubing changes. A follow up appointment has been arranged for her with Dr. Birmingham of [facility] at [facility] on 11/19/18 at 1120 am. Appointment card given to patient , who is at bedside. Discussed continuing local nightly hygiene to SP site with with gentle soap and water after she is discharged home, which is agreeable to doing. At the appointment, can discuss more aggressive interventions with Dr. Birmingham. All questions answered. Will follow peripherally over the weekend, but please call with questions or concerns over the weekend and [facility] will happily address them. COMMENT Lab Laboratory Tests Test 10/29/18 05:30 Creatinine 0.4 mg/dL (0.6-1.0) Estimated GFR (Cockcroft-Gault) 159.2 FREDY LATIF APRN Oct 29, 2018 10:56
[2018-10-29] MEDS: VANCOMYCIN PER PHARMACY MC PRN (12:35)
[2018-10-29 21:51] LABS: VANC TR 22.2 mcg/mL (10.0-20.0)
[2018-10-30] VITALS (24 sets, daily range): BP systolic 128–161; BP diastolic 55–78
[2018-10-30] MEDS: PIPERACILLIN/TAZOBACTAM 3.375 GM in IV NORMAL SALINE 50ML 50 ML IV SCH ×4 (00:24→17:23)
[2018-10-30] MEDS: VANCOMYCIN PER PHARMACY MC PRN ×2 (01:08→10:46)
--- NOTE | 2018-10-30 01:09 | NUR ---
Pharmacy Vancomycin Dosing Note S:Consulted to monitor and dose vancomycin started 10/26/18. O:MINNIE BENZ is a 68 year old F with Sepsis Fever, resp failure . Height: 5 feet, 2 inches Weight: 69.447548 kg [place] Body Weight: 50.10 Adjusted Body Weight: 57.66 Dosing Weight: Actual Other Antibiotics: zosyn LABS: Last BUN: 24 Last Creatinine: 0.4 Creatinine Clearance: 50 mL/min Last WBC: 7.4 Last Procalcitonin: Tmax (past 24 hours): 99.6 Microbiology: BLOOD: GPC SUGGESTIVE OF STAPH I/O: 2271/550 Drug Levels: Last Trough level: 22.2 on 10/29/18 at 2130 Last dose given 10/27/18 at 1011 Vancomycin Dosing: Loading Dose: 1750 mg x1 Dosing Weight: Actual Target Trough: 15-20 A: Based on: TROUGH P: 1. Begin Vancomycin 1000 mg IV q12h 2. Follow up Trough level on 10/31/18 at 1630 3. Pharmacy will continue to monitor, follow and adjust therapy as needed. DWAYNE DELUCA RPH, 10/30/18108 Signed: 10/30/18 at 108 by DWAYNE DELUCA RPH PHA Signed: 10/30/18 at 0109 by DWAYNE DELUCA, [facility] PHA
[2018-10-30] MEDS: VANCOMYCIN 1 GM in IV NORMAL SALINE 250ML 250 ML IV SCH ×2 (04:52→17:23)
[2018-10-30] MEDS: dilTIAZem HCL 30 MG TABLET PO SCH ×3 (06:02→20:58)
--- NOTE | 2018-10-30 07:05 | PDOC ---
PULMONARY PROGRESS NOTES Subjective ON AVAPS, tolerating well. no pain, no sob, small trach secretion Vitals Vital Signs Date Time Temp Pulse Resp B/P (MAP) Pulse Ox O2 Delivery O2 Flow Rate FiO2 10/30/18 06:02 82 142/61 10/30/18 06:00 14 96 BiPAP/CPAP 10/30/18 04:11 12.0 10/30/18 03:00 98.7 98.7 Comments as mentioned as above other sys otherwise neg ROS: No Nausea, No Chest Pain General: Alert, No acute distress HEENT: Other (nc at perrl nose throat clear, neck, trach site ok no lad, no thyromegaly) Lungs: Other (a few end exp wheezing) Cardiovascular: S1, S2 Abdomen: Soft, Non-tender, Other (no mass) Neuro Exam: Alert Extremities: Other (edema) Skin: Warm Labs Laboratory Tests Test 10/28/18 08:00 10/28/18 08:55 10/29/18 05:30 10/29/18 21:00 O2 Saturation 95 % (92-99) Arterial Blood pH 7.46 (7.35-7.45) Arterial Blood pCO2 at Patient Temp 57 mmHg (35-46) Arterial Blood pO2 at Patient Temp 79 mmHg (65-108) Arterial Blood HCO3 40 mmol/L (21-28) Arterial Blood Base Excess 14 mmol/L (-3-3) FiO2 40 Vancomycin Level Trough 4.2 mcg/mL (10.0-20.0) 22.2 mcg/mL (10.0-20.0) Vancomycin Last Dose Date 10/27/18 Unk Vancomycin Last Dose Time 0930 Unk Creatinine 0.4 mg/dL (0.6-1.0) Estimated GFR (Cockcroft-Gault) 159.2 Laboratory Tests Test 10/29/18 21:00 Vancomycin Level Trough 22.2 mcg/mL (10.0-20.0) Vancomycin Last Dose Date Unk Vancomycin Last Dose Time Unk Medications Active Scripts Medications Dose Route/Sig Max Daily Dose Days Date Category Dose Instructions Cardizem Tablet (Diltiazem Hcl) 30 Mg Tablet 30 Mg PO HS PRN 10/26/18 Reported Enema Ready To Use (Na Phos,M-B/Na Phos,Di-Ba) 133 Ml Enema 133 Ml RC 01/30/17 Reported Acetaminophen 500 Mg Tablet 1 Tab PO Q6HRS 01/30/17 Reported Probiotic Plus & Cranberry Cap (Cran/C/B.coag/Fos/L.acid/L.rha) 1 Each Capsule 1 Each PO BID 01/30/17 Reported Azithromycin Tablet (Azithromycin) 250 Mg Tablet 250 Mg PO DAILY 01/30/17 Reported Estradiol Transdermal Patch (Estradiol) 1 Each Patch.tdwk 1 Each TD BID WEEKLY 01/30/17 Reported Next dose 06/30/17 Karishma (Norethindrone) 0.35 Mg Tablet 0.35 Mg PO DAILY 01/30/17 Reported Keppra (Levetiracetam) 500 Mg Tablet 750 Mg PO BID 01/30/17 Reported Cardizem Tablet (Diltiazem Hcl) 60 Mg Tablet 60 Mg PO DAILY16 06/12/15 Reported Metoprolol Tartrate 25 Mg Tablet 1 Tab PO BID 12/28/14 Reported Xopenex (Levalbuterol Hcl) 0.63 Mg/3 Ml Vial.neb 1 Vial NEB TID 12/27/14 Reported Valium (Diazepam) 2 Mg Tablet 2 Mg PO TID 10/11/13 Reported Transderm-Scop (Scopolamine) 1 Each Patch.td72 1 Each TD Q3DAYS 07/28/13 Reported Indication: secretions Next dose: 06/30/17 am Nystop (Nystatin) 60 Gm Powder 60 Gm TP PRN 07/28/13 Reported Indication: rash NExt dose: as needed Levalbuterol Hcl 0.63 Mg/3 Ml Vial.neb 0.63 Mg IH TID 07/28/13 Reported Spiriva (Tiotropium [place]) 18 Mcg Cap.w.dev 18 Mcg IH DAILY 07/28/13 Reported Diltiazem Hcl Tablet (Diltiazem Hcl) 60 Mg Tablet 60 Mg PO DAILY07 07/28/13 Reported Provigil (Modafinil) 200 Mg Tablet 200 Mg PO DAILY 07/28/13 Reported Paxil (Paroxetine Hcl) 10 Mg/5 Ml Oral.susp 10 Mg PO DAILY 07/28/13 Reported Baclofen 10 Mg Tablet 10 Mg PO TID 07/28/13 Reported Comments cxr reviewed, Improved congestive changes with improved bibasilar lung airspace opacities likely atelectasis or infiltrates and small bilateral pleural effusions. Impression . 1. Acute on chronic hypercapnic and hypoxic respiratory failure secondary to multifactorial etiologies including sepsis 2. The patient with severe/advanced multiple sclerosis with chronic respiratory failure. 3. The patient with prior thoracentesis and prior multiple bronchoscopies. now with increasing bilateral effusions 4. Fever resolved 5. BC + 1/2 G + cocci - MRSE 10/25. 6. UTI w/ PSA and Enterococcus (PCN- R). SPC last changed 10/25 7. Trach site infection with growth of PSA, 10/25 Plan . 1. Continue with present AVAPS prn during day, continuously at night. abg reviewed, has wheezing, add ics 2. Continue broad-spectrum antibiotics. 3. Follow blood cultures. 4. s/p thoracentesis. transudate, fu pf studies 5. Follow chest x-rays, post thoracentesis. 6. Would also recommend discussion of goals of care 7. enteral nutrition 8. Consider nocturnal Triligy at home 9. BD, praneeth w rn, rt SHYAM ALCARAZ MD Oct 30, 2018 07:04
[2018-10-30] MEDS: IPRATRPIUM/ALBUTEROL 0.5/2.5MG 3 ML NEBU. NEB SCH ×4 (07:56→20:06)
[2018-10-30] MEDS: BACLOFEN 10 MG TABLET. PO SCH ×3 (08:40→20:58)
[2018-10-30] MEDS: PARoxetine 10 MG TABLET PO SCH (08:40)
[2018-10-30] MEDS: diazePAM 2 MG TABLET PO SCH ×3 (08:40→20:58)
[2018-10-30] MEDS: METOPROLOL TART IMMED RELEASE 25 MG TABLET. PO SCH ×2 (08:40→20:59)
[2018-10-30] MEDS: ASPIRIN CHEWABLE 81 MG TABLET. PO SCH (08:41)
[2018-10-30] MEDS: SCOPOLAMINE 1.5MG PATCH. TD SCH (08:41)
[2018-10-30] MEDS: levETIRAcetam 250 MG TABLET PO SCH ×2 (08:41→20:58)
--- NOTE | 2018-10-30 08:58 | PDOC ---
PROGRESS NOTES Chief Complaint Chief Complaint Acute on chronic respiratory failure Bialteral pleural effusion Advanced multiple sclerosis tracheostomy history of seizures PEG tube baclofen pump colostomy Suprapubic catheter S.p thoracentesis > 1L Plan: supportive measures wound care resumed home meds farther recommendations based on clinical course. History of Present Illness History of Present Illness Patient on the mechanical ventilation tracheostomy in place unable to have conversation with the patient responding to verbal stimuli, no acute events reported overnight. She seems quite debilitated but this seems to be her baseline she seems somewhat improved compared to yesterday, plan of care discussed in detail. Opening eyes more to verbal today. Mumbling. No complaints. Plan: Urine with enterococcus and pseudomonas, may need IV antibiotics due to resistances of both bugs. Will d/w ID possibly needs LTAC on d/c Vitals Vitals Vital Signs Date Time Temp Pulse Resp B/P (MAP) Pulse Ox O2 Delivery O2 Flow Rate FiO2 10/30/18 08:40 86 141/57 10/30/18 08:05 14 94 12.0 10/30/18 08:01 Bi-pap 10/30/18 07:00 98.1 98.1 Physical Exam Physical Exam GENERAL: female, nodes, on vent VITAL SIGNS: stable HEENT: Both pupils are round and reacting. No conjunctival lesion. No oral lesion. NECK: Supple. No JVP. Tracheostomy in place. LUNGS: Bilateral decreased breath sounds. HEART: S1 and S2 regular. No gallop or murmur. ABDOMEN: Soft and nontender. PEG tube is in place, suprapubic catheter is in place. EXTREMITIES: No edema or cyanosis. Loss of muscle mass. NEUROLOGICAL: awake, nodes, quadruplegic SKIN: Unremarkable. General: Alert, No acute distress Heart: Regular rate (SR), Other (distnat heart sounds) Lungs: Other (a few end exp wheezing) Abdomen: Soft Extremities: Other (generalized edema trace to 1+) Skin: Other (suprapubic cath, PEG tube in place, trach site intact) Labs LABS Laboratory Tests Test 10/29/18 21:00 Vancomycin Level Trough 22.2 mcg/mL (10.0-20.0) Vancomycin Last Dose Date Unk Vancomycin Last Dose Time Unk Assessment and Plan Assessmemt and Plan Problems Medical Problems: (1) Hypercapnic respiratory failure Status: Acute Comment Review of Relevant I have reviewed the following items lucila (where applicable) has been applied. Labs Laboratory Tests Test 10/29/18 05:30 10/29/18 21:00 Creatinine 0.4 mg/dL (0.6-1.0) Estimated GFR (Cockcroft-Gault) 159.2 Vancomycin Level Trough 22.2 mcg/mL (10.0-20.0) Vancomycin Last Dose Date Unk Vancomycin Last Dose Time Unk Laboratory Tests Test 10/29/18 21:00 Vancomycin Level Trough 22.2 mcg/mL (10.0-20.0) Vancomycin Last Dose Date Unk Vancomycin Last Dose Time Unk Microbiology 10/26/18 Blood Culture - Preliminary, Resulted NO GROWTH AFTER 4 DAYS 10/27/18 Anaerobic/Aerobic Culture, Resulted Pending 10/27/18 Anaerobic Culture Result 1 (NANDO), Resulted Pending 10/27/18 Aerobic Culture - Preliminary, Resulted 10/27/18 Aerobic Culture Result 1 (NANDO) - Preliminary, Resulted 10/27/18 Gram Stain - Final, Resulted 10/27/18 Gram Stain Result 1 (NANDO) - Final, Resulted 10/27/18 Gram Stain Result 2 (NANDO) - Final, Resulted 10/25/18 Urine Culture - Final, Complete 10/25/18 Urine Culture Result 1 (NANDO) - Final, Complete 10/25/18 Urine Culture Result 2 (NANDO) - Final, Complete 10/25/18 Antimicrobic Susceptibility - Final, Complete 10/27/18 Anaerobic/Aerobic Culture, Resulted Pending 10/27/18 Anaerobic Culture Result 1 (NANDO), Resulted Pending 10/27/18 Aerobic Culture - Preliminary, Resulted 10/27/18 Aerobic Culture Result 1 (NANDO) - Preliminary, Resulted 10/27/18 Gram Stain - Final, Resulted 10/27/18 Gram Stain Result 1 (NANDO) - Final, Resulted 10/27/18 Gram Stain Result 2 (NANDO) - Final, Resulted Medications Current Medications Sodium Chloride 1,000 ml @ 1,000 mls/hr Q1H IV Last administered on 10/25/18at 19:04; Start 10/25/18 at 17:28; Stop 10/25/18 at 18:27; Status DC Albuterol/ Ipratropium (Duoneb) 3 ml 1X ONCE NEB Last administered on at 17:53; Start 10/25/18 at 17:30; Stop 10/25/18 at 17:31; Status DC Methylprednisolone Sodium Succinate (SOLU-Medrol 125MG VIAL) 125 mg 1X ONCE IV Last administered on 10/25/18at 19:04; Start 10/25/18 at 17:30; Stop 10/25/18 at 17:31; Status DC Ceftriaxone Sodium (Rocephin) 1 gm 1X ONCE IVP Last administered on 10/25/18at 20:24; Start 10/25/18 at 19:00; Stop 10/25/18 at 19:02; Status DC Ondansetron HCl (Zofran) 4 mg PRN Q8HRS PRN IV NAUSEA/VOMITING; Start 10/25/18 at 20:15; Stop 10/26/18 at 20:14; Status DC Sodium Chloride 1,000 ml @ 126 mls/hr Q7H57M IV ; Start 10/25/18 at 20:07; Stop 10/26/18 at 07:12; Status DC Acetaminophen (Tylenol) 650 mg 1X ONCE PEG Last administered on 10/26/18at 04:59 ; Start 10/26/18 at 04:30; Stop 10/26/18 at 04:32; Status DC Piperacillin Sod/ Tazobactam Sod (Zosyn Per Pharmacy) 1 each PRN DAILY PRN MC SEE COMMENTS; Start 10/26/18 at 07:15 Vancomycin HCl (Vanco Per Pharmacy) 1 each PRN DAILY PRN MC SEE COMMENTS Last administered on 10/30/18at 01:08; Start 10/26/18 at 07:15 Piperacillin Sod/ Tazobactam Sod 3.375 gm/Sodium Chloride 50 ml @ 100 mls/hr Q6HRS IV Last administered on 10/30/18at 06:02; Start 10/26/18 at 08:00 Vancomycin HCl 1.75 gm/Sodium Chloride 500 ml @ 250 mls/hr 1X ONCE IV Last administered on 10/26/18at 09:25; Start 10/26/18 at 08:00; Stop 10/26/18 at 09:59; Status DC Azithromycin (Zithromax) 250 mg DAILY PO ; Start 10/27/18 at 09:00; Status UNV Baclofen (Lioresal) 10 mg TID PO Last administered on 10/30/18at 08:40; Start at 14:00 Diazepam (Valium) 2 mg TID PO Last administered on 10/30/18 08:40; Start at 14:00 Diltiazem HCl (Cardizem) 30 mg QHS PO Last administered on 10/29/18at 20:57; Start 10/26/18 at 21:00 Estradiol ([place]imara Weekly) 1 mg WEEKLY TD ; Start 11/02/18 at 09:00 Levetiracetam (Keppra) 750 mg BID PO Last administered on 10/30/18at 08:41; Start 10/26/18 at 12:00 Metoprolol Tartrate (Lopressor) 25 mg BID PO Last administered on 10/30/18 08: 40; Start 10/26/18 at 12:00 Sodium Monofluorophosphate (Fleet Adult) 133 ml DAILY PRN RC constipation; Start 10/26/18 at 11:15 Nystatin (Nystop) 1 parag PRN BID PRN TP RASH; Start 10/26/18 at 11:15; Stop 10/27 at 10:35; Status DC Acetaminophen (Tylenol) 500 mg PRN Q6HRS PRN PO MILD PAIN / TEMP; Start at 11:30 Non-Formulary Medication (Cran/C/B.coag/ Fos/L.acid/L.rha (Probiotic Plus & Cranberry Cap)) 1 each BID PO ; Start 10/26/18 at 21:00; Status UNV Diltiazem HCl (Cardizem) 60 mg DAILY16 PO Last administered on 10/29/18at 17:49 ; Start 10/26/18 at 16:00 Diltiazem HCl (Cardizem) 60 mg DAILY07 PO Last administered on 10/30/18at 06:02 ; Start 10/27/18 at 07:00 Non-Formulary Medication (Levalbuterol Hcl ) 0.63 mg TID IH ; Start 10/26/18 at 14:00; Status UNV Non-Formulary Medication (Levalbuterol Hcl (Xopenex)) 1 vial TID NEB ; Start 10/26/18 at 14:00; Status UNV Non-Formulary Medication (Modafinil (Provigil)) 200 mg DAILY PO Last administered on 10/30/18 08:52; Start 10/27/18 at 11:30 Non-Formulary Medication (Norethindrone (Karishma)) 0.35 mg DAILY PO ; Start 10/27 at 09:00; Status UNV Paroxetine HCl (Paxil) 10 mg DAILY PO Last administered on 10/30/18 08:40; Start 10/26/18 at 12:00 Scopolamine (Transderm-Scop) 1 patch Q3DAYS TD Last administered on 10/30/18 08:41; Start 10/27/18 at 09:00 Non-Formulary Medication (Tiotropium [place] (Spiriva)) 18 mcg DAILY IH ; Start 10/27/18 at 09:00; Status UNV Albuterol/ Ipratropium (Duoneb) 3 ml RTQID NEB Last administered on 10/30/18 07:56; Start 10/26/18 at 12:00 Albuterol Sulfate (Ventolin Neb Soln) 2.5 mg PRN TID PRN NEB SHORTNESS OF BREATH; Start 10/26/18 at 11:30 Vancomycin HCl 1 gm/Sodium Chloride 250 ml @ 250 mls/hr Q24H IV Last administered on 10/28/18 09:51; Start 10/27/18 at 09:30; Stop 10/28/18 at 12:00 ; Status DC Vancomycin HCl (Vancomycin Trough Level) 1 each 1X ONCE MC Last administered on 10/28/18 09:00; Start 10/28/18 at 09:00; Stop 10/28/18 at 09:01; Status DC Aspirin (Children'S Aspirin) 81 mg DAILYWBKFT PO Last administered on 08:41; Start 10/26/18 at 14:30 Non-Formulary Medication 1 ea PRN TID PRN PO APPLY TO AFFECTED AREA Last administered on 10/27/18 10:57; Start 10/27/18 at 11:00 Vancomycin HCl 1.25 gm/Sodium Chloride 250 ml @ 167 mls/hr Q12H IV Last administered on 10/29/18 08:52; Start 10/28/18 at 22:00; Stop 10/29/18 at 22:05 ; Status DC Vancomycin HCl (Vancomycin Trough Level) 1 each 1X ONCE MC Last administered on 4/12/19at 21:30; Start 10/29/18 at 21:30; Stop 10/29/18 at 21:31; Status DC Vancomycin HCl 1 gm/Sodium Chloride 250 ml @ 250 mls/hr Q12H IV Last administered on 10/30/18at 04:52; Start 10/30/18 at 05:00 Vancomycin HCl (Vancomycin Trough Level) 1 each 1X ONCE MC ; Start 10/31/18 at 16:30; Stop 10/31/18 at 16:31 Budesonide (Pulmicort) 0.5 mg RTBID NEB ; Start 10/30/18 at 08:00 Active Scripts Active Reported Cardizem Tablet (Diltiazem Hcl) 30 Mg Tablet 30 Mg PO HS PRN Enema Ready To Use (Na Phos,M-B/Na Phos,Di-Ba) 133 Ml Enema 133 Ml RC Acetaminophen 500 Mg Tablet 1 Tab PO Q6HRS Probiotic Plus & Cranberry Cap (Cran/C/B.coag/Fos/L.acid/L.rha) 1 Each Capsule 1 Each PO BID Azithromycin Tablet (Azithromycin) 250 Mg Tablet 250 Mg PO DAILY Estradiol Transdermal Patch (Estradiol) 1 Each Patch.tdwk 1 Each TD BID WEEKLY Next dose 06/30/17 Karishma (Norethindrone) 0.35 Mg Tablet 0.35 Mg PO DAILY Keppra (Levetiracetam) 500 Mg Tablet 750 Mg PO BID Cardizem Tablet (Diltiazem Hcl) 60 Mg Tablet 60 Mg PO DAILY16 Metoprolol Tartrate 25 Mg Tablet 1 Tab PO BID Xopenex (Levalbuterol Hcl) 0.63 Mg/3 Ml Vial.neb 1 Vial NEB TID Valium (Diazepam) 2 Mg Tablet 2 Mg PO TID Transderm-Scop (Scopolamine) 1 Each Patch.td72 1 Each TD Q3DAYS Indication: secretions Next dose: 06/30/17 am Nystop (Nystatin) 60 Gm Powder 60 Gm TP PRN Indication: rash NExt dose: as needed Levalbuterol Hcl 0.63 Mg/3 Ml Vial.neb 0.63 Mg IH TID Spiriva (Tiotropium [place]) 18 Mcg Cap.w.dev 18 Mcg IH DAILY Diltiazem Hcl Tablet (Diltiazem Hcl) 60 Mg Tablet 60 Mg PO DAILY07 Provigil (Modafinil) 200 Mg Tablet 200 Mg PO DAILY Paxil (Paroxetine Hcl) 10 Mg/5 Ml Oral.susp 10 Mg PO DAILY Baclofen 10 Mg Tablet 10 Mg PO TID Vitals/I & O Vital Sign - Last 24 Hours 10/29/18 10/29/18 10/29/18 10/29/18 09:00 10:00 10:00 11:00 Pulse 88 74 70 Resp 14 15 14 B/P (MAP) 128/64 (85) 103/58 (73) 103/54 (70) Pulse Ox 94 94 95 92 O2 Delivery apap with trach BiPAP/CPAP apap with trach apap with trach 10/29/18 10/29/18 10/29/18 10/29/18 12:00 12:00 12:00 12:38 Pulse 72 Resp 13 B/P (MAP) 97/48 (64) Pulse Ox 93 93 O2 Delivery Bi-pap apap with trach BiPAP/CPAP O2 Flow Rate 12.0 10/29/18 10/29/18 10/29/18 10/29/18 13:00 14:05 15:00 16:00 Temp 98.7 98.7 Pulse 70 76 74 Resp 13 23 14 B/P (MAP) 120/57 (78) 108/56 (73) 105/54 (71) Pulse Ox 99 93 95 O2 Delivery apap with trach BiPAP/CPAP BiPAP/CPAP O2 Flow Rate 12.0 10/29/18 10/29/18 10/29/18 10/29/18 16:00 16:00 16:09 17:00 Pulse 74 80 Resp 13 13 B/P (MAP) 122/56 (78) 124/56 (78) Pulse Ox 98 93 96 O2 Delivery Bi-pap apap with trach BiPAP/CPAP apap with trach 10/29/18 10/29/18 10/29/18 10/29/18 17:49 18:00 19:00 19:49 Temp 98.7 98.7 Pulse 83 82 74 Resp 14 14 B/P (MAP) 124/53 128/55 (79) 122/54 (76) Pulse Ox 94 94 96 O2 Delivery apap with trach apap with trach BiPAP/CPAP 10/29/18 10/29/18 10/29/18 10/29/18 20:00 20:00 20:00 20:56 Pulse 74 77 Resp 14 B/P (MAP) 119/66 (83) 119/66 Pulse Ox 100 O2 Delivery Bi-pap BiPAP/CPAP O2 Flow Rate 12.0 10/29/18 10/29/18 10/29/18 10/29/18 20:57 21:00 22:00 22:46 Pulse 77 76 64 Resp 14 14 B/P (MAP) 119/66 144/68 (93) 116/66 (83) Pulse Ox 95 95 96 O2 Delivery BiPAP/CPAP BiPAP/CPAP BiPAP/CPAP 10/29/18 10/30/18 10/30/18 10/30/18 23:00 00:01 00:01 00:01 Temp 98.1 98.1 Pulse 78 78 Resp 14 14 B/P (MAP) 134/61 (85) 128/69 (88) Pulse Ox 100 100 O2 Delivery BiPAP/CPAP BiPAP/CPAP Bi-pap O2 Flow Rate 12.0 10/30/18 10/30/18 10/30/18 10/30/18 01:00 01:48 02:00 03:00 Temp 98.7 98.7 Pulse 76 80 82 Resp 14 14 14 B/P (MAP) 133/69 (90) 134/66 (88) 131/58 (82) Pulse Ox 93 95 96 95 O2 Delivery BiPAP/CPAP BiPAP/CPAP BiPAP/CPAP BiPAP/CPAP 10/30/18 10/30/18 10/30/18 10/30/18 04:07 04:10 04:11 05:00 Pulse 88 Resp 14 B/P (MAP) 134/65 (88) Pulse Ox 95 95 O2 Delivery BiPAP/CPAP Bi-pap BiPAP/CPAP O2 Flow Rate 12.0 10/30/18 10/30/18 10/30/18 10/30/18 05:00 06:00 06:02 07:00 Temp 98.1 98.1 Pulse 88 90 82 88 Resp 14 14 14 B/P (MAP) 153/67 (95) 142/61 (88) 142/61 143/57 (85) Pulse Ox 96 96 94 O2 Delivery BiPAP/CPAP BiPAP/CPAP O2 Flow Rate 12.0 10/30/18 10/30/18 10/30/18 10/30/18 07:56 08:00 08:01 08:05 Pulse 86 Resp 14 B/P (MAP) 141/57 (85) Pulse Ox 95 94 O2 Delivery BiPAP/CPAP Bi-pap O2 Flow Rate 12.0 12.0 12.0 10/30/18 08:40 Pulse 86 B/P (MAP) 141/57 Intake and Output 10/29/18 10/29/18 10/30/18 15:00 23:00 07:00 Intake Total 100 ml 1036 ml 250 ml Output Total 485 ml 250 ml 650 ml Balance -385 ml 786 ml -400 ml FLAQUITO LIRA MD Oct 30, 2018 08:58
[2018-10-30 09:38] LABS: CREATININE 0.5 mg/dL (0.6-1.0); GFR 123.1
--- NOTE | 2018-10-30 09:55 | PDOC ---
Infectious Disease Note Subjective Subjective Orally intubated/vent FiO2 40% Tube feedings 50 ml/hr No fevers Denies pain/SOA/upset stomach ROS ROS per HPI Vital Sign Vital Signs Vital Signs Date Time Temp Pulse Resp B/P (MAP) Pulse Ox O2 Delivery O2 Flow Rate FiO2 10/30/18 09:00 78 14 156/65 (95) 94 12.0 10/30/18 08:01 Bi-pap 10/30/18 07:00 98.1 98.1 Physical Exam PHYSICAL EXAM GENERAL: Alert, orally intubated, calm HEENT: JOHN, ETT NECK: Tracheostomy in place. LUNGS: Bilateral decreased breath sounds. HEART: S1 and S2 regular. No gallop or murmur. ABDOMEN: Obese, distended, soft and nontender. PEG tube and SPC in place EXTREMITIES: Generalized edema. No cyanosis NEUROLOGICAL: Alert, nods to few questions, quadriplegia SKIN: No rash RUE-PICC clean Labs Lab Laboratory Tests Test 10/29/18 21:00 Vancomycin Level Trough 22.2 mcg/mL (10.0-20.0) Vancomycin Last Dose Date Unk Vancomycin Last Dose Time Unk Micro Objective Assessment Fever, better Lactic acidosis and sepsis. Suspected aspiration BC + 1/2 G + cocci - MRSE 10/25. UTI w/ PSA and Enterococcus (PCN- R). SPC last changed 10/25 Trach site infection with growth of PSA, 10/25 Pleural effusions s/p bilat thoracentesis on 10/28. cultures neg to date Hypercapnic respiratory failure. Advanced multiple scleroses. h/o seizures on Keppra h/o MRSA, VRE, c. 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 Chart reviewed in detail. 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 Agree with above plan. ALONSO DE AUDIT PARTNER Oct 30, 2018 09:54 NEDA FARRIS MD Oct 30, 2018 20:27
[2018-10-30] MEDS ORDERED: DOCUSATE SODIUM 283 MG/5 ML ENEMA. PR PRN (10:30)
[2018-10-30] MEDS: BUDESONIDE 0.5 MG/2 ML NEBU. NEB SCH ×2 (12:15→20:06)
[2018-10-31] VITALS (24 sets, daily range): BP systolic 88–162; BP diastolic 50–82
[2018-10-31] MEDS: PIPERACILLIN/TAZOBACTAM 3.375 GM in IV NORMAL SALINE 50ML 50 ML IV SCH ×4 (00:23→18:14)
[2018-10-31] MEDS: VANCOMYCIN 1 GM in IV NORMAL SALINE 250ML 250 ML IV SCH (06:07)
--- NOTE | 2018-10-31 06:40 | PDOC ---
PULMONARY PROGRESS NOTES Subjective ON AVAPS, tolerating well. no sob, small trach secretion, on tm during day 40% fio2 Vitals Vital Signs Date Time Temp Pulse Resp B/P (MAP) Pulse Ox O2 Delivery O2 Flow Rate FiO2 10/31/18 06:00 87 14 154/68 (96) 96 BiPAP/CPAP 10/31/18 04:00 98.9 98.9 10/31/18 00:00 10.0 Comments as mentioned as above other sys otherwise neg ROS: No Nausea, No Chest Pain General: Alert, No acute distress HEENT: Other (nc at perrl nose throat clear, neck, trach site ok no lad, no thyromegaly) Lungs: Other (a few end exp wheezing) Cardiovascular: S1, S2 Abdomen: Soft, Non-tender, Other (no mass) Neuro Exam: Alert Extremities: Other (edema) Skin: Warm Labs Laboratory Tests Test 10/29/18 21:00 10/30/18 08:30 Vancomycin Level Trough 22.2 mcg/mL (10.0-20.0) Vancomycin Last Dose Date Unk Vancomycin Last Dose Time Unk Creatinine 0.5 mg/dL (0.6-1.0) Estimated GFR (Cockcroft-Gault) 123.1 Laboratory Tests Test 10/30/18 08:30 Creatinine 0.5 mg/dL (0.6-1.0) Estimated GFR (Cockcroft-Gault) 123.1 Medications Active Scripts Medications Dose Route/Sig Max Daily Dose Days Date Category Dose Instructions Cardizem Tablet (Diltiazem Hcl) 30 Mg Tablet 30 Mg PO HS PRN 10/26/18 Reported Enema Ready To Use (Na Phos,M-B/Na Phos,Di-Ba) 133 Ml Enema 133 Ml RC 01/30/17 Reported Acetaminophen 500 Mg Tablet 1 Tab PO Q6HRS 01/30/17 Reported Probiotic Plus & Cranberry Cap (Cran/C/B.coag/Fos/L.acid/L.rha) 1 Each Capsule 1 Each PO BID 01/30/17 Reported Azithromycin Tablet (Azithromycin) 250 Mg Tablet 250 Mg PO DAILY 01/30/17 Reported Estradiol Transdermal Patch (Estradiol) 1 Each Patch.tdwk 1 Each TD BID WEEKLY 01/30/17 Reported Next dose 06/30/17 Karishma (Norethindrone) 0.35 Mg Tablet 0.35 Mg PO DAILY 01/30/17 Reported Keppra (Levetiracetam) 500 Mg Tablet 750 Mg PO BID 01/30/17 Reported Cardizem Tablet (Diltiazem Hcl) 60 Mg Tablet 60 Mg PO DAILY16 06/12/15 Reported Metoprolol Tartrate 25 Mg Tablet 1 Tab PO BID 12/28/14 Reported Xopenex (Levalbuterol Hcl) 0.63 Mg/3 Ml Vial.neb 1 Vial NEB TID 12/27/14 Reported Valium (Diazepam) 2 Mg Tablet 2 Mg PO TID 10/11/13 Reported Transderm-Scop (Scopolamine) 1 Each Patch.td72 1 Each TD Q3DAYS 07/28/13 Reported Indication: secretions Next dose: 06/30/17 am Nystop (Nystatin) 60 Gm Powder 60 Gm TP PRN 07/28/13 Reported Indication: rash NExt dose: as needed Levalbuterol Hcl 0.63 Mg/3 Ml Vial.neb 0.63 Mg IH TID 07/28/13 Reported Spiriva (Tiotropium [place]) 18 Mcg Cap.w.dev 18 Mcg IH DAILY 07/28/13 Reported Diltiazem Hcl Tablet (Diltiazem Hcl) 60 Mg Tablet 60 Mg PO DAILY07 07/28/13 Reported Provigil (Modafinil) 200 Mg Tablet 200 Mg PO DAILY 07/28/13 Reported Paxil (Paroxetine Hcl) 10 Mg/5 Ml Oral.susp 10 Mg PO DAILY 07/28/13 Reported Baclofen 10 Mg Tablet 10 Mg PO TID 07/28/13 Reported Comments cxr reviewed, Improved congestive changes with improved bibasilar lung airspace opacities likely atelectasis or infiltrates and small bilateral pleural effusions. Impression . 1. Acute on chronic hypercapnic and hypoxic respiratory failure secondary to multifactorial etiologies including sepsis 2. The patient with severe/advanced multiple sclerosis with chronic respiratory failure. 3. The patient with prior thoracentesis and prior multiple bronchoscopies. now with increasing bilateral effusions 4. Fever resolved 5. BC + 1/2 G + cocci - MRSE 10/25. 6. UTI w/ PSA and Enterococcus (PCN- R). SPC last changed 10/25 7. Trach site infection with growth of PSA, 10/25 Plan . 1. Continue with present AVAPS prn during day, continuously at night. abg reviewed, cont ics 2. Continue broad-spectrum antibiotics. 3. am abg, pcxr 4. s/p thoracentesis. transudate, cxs neg, fu pf studies 5. elevate hob 6. Would also recommend discussion of goals of care and code statu 7. enteral nutrition 8. Consider nocturnal Triligy at home 9. BD, discussed w rn, rt SHYAM ALCARAZ MD Oct 31, 2018 06:40
[2018-10-31 06:49] LABS: BASO % 0 % (0-3); EOS # 0.2 x10^3/uL (0.0-0.7); EOS % 3 % (0-3); HEMATOCRIT 34.1 % (36.0-47.0); HEMOGLOBIN 10.9 g/dL (12.0-15.5); LYMPH # 0.4 x10^3/uL (1.0-4.8); LYMPH % 6 % (24-48); MEAN CORPUSCULAR HEMOGLOBIN 30 pg (25-35); MEAN CORPUSCULAR HGB CONC 32 g/dL (31-37); MEAN CORPUSCULAR VOLUME 95 fL (79-100); MONO # 0.5 x10^3/uL (0.0-1.1); MONO % 8 % (0-9); NEUT # 5.5 x10^3uL (1.8-7.7); NEUT % 83 % (31-73); PLATELET COUNT 229 x10^3/uL (140-400); RED BLOOD COUNT 3.61 x10^6/uL (3.50-5.40); WHITE BLOOD COUNT 6.7 x10^3/uL (4.0-11.0)
[2018-10-31] MEDS: dilTIAZem HCL 30 MG TABLET PO SCH ×3 (07:07→21:05)
[2018-10-31 07:17] LABS: ALBUMIN/GLOBULIN RATIO 0.4 (1.0-1.7); CALCIUM 8.9 mg/dL (8.5-10.1); CREATININE 0.4 mg/dL (0.6-1.0); GFR 159.2; POTASSIUM 3.7 mmol/L (3.5-5.1); TOTAL BILIRUBIN 0.3 mg/dL (0.2-1.0); TOTAL PROTEIN 6.5 g/dL (6.4-8.2)
[2018-10-31] MEDS: BUDESONIDE 0.5 MG/2 ML NEBU. NEB SCH ×2 (08:16→20:02)
[2018-10-31] MEDS: IPRATRPIUM/ALBUTEROL 0.5/2.5MG 3 ML NEBU. NEB SCH ×4 (08:16→20:02)
[2018-10-31] MEDS: diazePAM 2 MG TABLET PO SCH ×3 (08:56→21:05)
[2018-10-31] MEDS: ASPIRIN CHEWABLE 81 MG TABLET. PO SCH (08:56)
[2018-10-31] MEDS: BACLOFEN 10 MG TABLET. PO SCH ×3 (08:56→21:05)
[2018-10-31] MEDS: levETIRAcetam 250 MG TABLET PO SCH ×2 (08:56→21:06)
[2018-10-31] MEDS: PARoxetine 10 MG TABLET PO SCH (08:56)
[2018-10-31] MEDS: METOPROLOL TART IMMED RELEASE 25 MG TABLET. PO SCH ×2 (08:57→21:06)
--- NOTE | 2018-10-31 09:26 | PDOC ---
Infectious Disease Note Subjective Subjective Trach/vent FiO2 40% Tube feedings 50 ml/hr No fevers Vital Sign Vital Signs Vital Signs Date Time Temp Pulse Resp B/P (MAP) Pulse Ox O2 Delivery O2 Flow Rate FiO2 10/31/18 08:57 78 132/66 10/31/18 08:18 96 BiPAP/CPAP 10/31/18 08:00 97.5 14 97.5 10/31/18 00:00 10.0 Physical Exam PHYSICAL EXAM GENERAL: Appears comfortable HEENT: JOHN, Oral cavity clear NECK: Tracheostomy in place. LUNGS: Bilateral decreased breath sounds. HEART: S1 and S2 regular. No gallop or murmur. ABDOMEN: Obese, distended, soft and nontender. PEG tube and SPC in place EXTREMITIES: Generalized edema. No cyanosis NEUROLOGICAL: Sleeping, quadriplegia SKIN: No rash RUE-PICC clean Labs Lab Laboratory Tests Test 10/31/18 06:10 White Blood Count 6.7 x10^3/uL (4.0-11.0) Red Blood Count 3.61 x10^6/uL (3.50-5.40) Hemoglobin 10.9 g/dL (12.0-15.5) Hematocrit 34.1 % (36.0-47.0) Mean Corpuscular Volume 95 fL (79-100) Mean Corpuscular Hemoglobin 30 pg (25-35) Mean Corpuscular Hemoglobin Concent 32 g/dL (31-37) Red Cell Distribution Width 16.0 % (11.5-14.5) Platelet Count 229 x10^3/uL (140-400) Neutrophils (%) (Auto) 83 % (31-73) Lymphocytes (%) (Auto) 6 % (24-48) Monocytes (%) (Auto) 8 % (0-9) Eosinophils (%) (Auto) 3 % (0-3) Basophils (%) (Auto) 0 % (0-3) Neutrophils # (Auto) 5.5 x10^3uL (1.8-7.7) Lymphocytes # (Auto) 0.4 x10^3/uL (1.0-4.8) Monocytes # (Auto) 0.5 x10^3/uL (0.0-1.1) Eosinophils # (Auto) 0.2 x10^3/uL (0.0-0.7) Basophils # (Auto) 0.0 x10^3/uL (0.0-0.2) Sodium Level 146 mmol/L (136-145) Potassium Level 3.7 mmol/L (3.5-5.1) Chloride Level 105 mmol/L (98-107) Carbon Dioxide Level 34 mmol/L (21-32) Anion Gap 7 (6-14) Blood Urea Nitrogen 21 mg/dL (7-20) Creatinine 0.4 mg/dL (0.6-1.0) Estimated GFR (Cockcroft-Gault) 159.2 BUN/Creatinine Ratio 53 (6-20) Glucose Level 132 mg/dL (70-99) Calcium Level 8.9 mg/dL (8.5-10.1) Total Bilirubin 0.3 mg/dL (0.2-1.0) Aspartate Amino Transf (AST/SGOT) 31 U/L (15-37) Alanine Aminotransferase (ALT/SGPT) 42 U/L (14-59) Alkaline Phosphatase 70 U/L (46-116) Total Protein 6.5 g/dL (6.4-8.2) Albumin 2.0 g/dL (3.4-5.0) Albumin/Globulin Ratio 0.4 (1.0-1.7) Micro Objective Assessment Fever, better Lactic acidosis and sepsis. Suspected aspiration BC + 1/2 G + cocci - MRSE 10/25. UTI w/ PSA and Enterococcus (PCN- R). SPC last changed 10/25 Trach site infection with growth of PSA, 10/25 Pleural effusions s/p bilat thoracentesis on 10/28. cultures neg to date Hypercapnic respiratory failure. Advanced multiple scleroses. h/o seizures on Keppra h/o MRSA, VRE, c. diff Plan Plan of Care Vanc per pharmacy and Zosyn Trough 22.2 Repeat BC NGTD engineer operations and maintenance care Monitor renal function closely Supportive care D/w nursing Patient seen and examined. Chart reviewed in detail. Case discussed with PRODUCT BUILDER. Agree with above plan. ALONSO DE PRESSING DEPARTMENT SUPERVISOR Oct 31, 2018 09:26 NEDA FARRIS MD Oct 31, 2018 18:49
--- NOTE | 2018-10-31 13:44 | RAD ---
AP chest. HISTORY: Patient on ventilator AP view was taken of the chest. There is a tracheostomy tube in place. Right PICC line is unchanged. There has been increase in bilateral pleural effusions. There are persistent bilateral infiltrates. IMPRESSION: 1. Worsening bilateral pleural effusions. Electronically signed by: Loki Ayala MD (10/31/2018 1:40 PM) [facility]
[2018-10-31] MEDS: VANCOMYCIN PER PHARMACY MC PRN ×3 (14:56→17:49)
[2018-10-31 16:53] LABS: VANC TR 23.9 mcg/mL (10.0-20.0)
--- NOTE | 2018-10-31 17:48 | NUR ---
Pharmacy Vancomycin Dosing Note S:Consulted to monitor and dose vancomycin started 10/26/18. O:MINNIE BENZ is a 68 year old F with sepsis and resp failure. Height: 5 feet, 2 inches Weight: 70.821445 kg Staples Body Weight: 50.10 Adjusted Body Weight: 58.18 Dosing Weight: Actual Other Antibiotics: Zosyn LABS: Last BUN: 21 Last Creatinine: 0.4 Creatinine Clearance: about 50 mL/min Last WBC: 6.7 Last Procalcitonin: NA Tmax (past 24 hours): 98.9 Microbiology: 10/25 BLOOD: + staph epi; repeat BC 10/26 NGTD x 4 days 10/25 Urine + enterococcus (susceptible vanco) and pseudomonas 10/27 Trach site + pseudomonas 10/27 Pleural fluid NGTD I/O: 6868/6940 Drug Levels: Last Trough level: 23.9 (DRAWN > 1 HOUR EARLY) on 10/31/18 at 1620 Last dose given 10/31/18 at 0607 Vancomycin Dosing: Loading Dose: 1750 mg x1 Dosing Weight: Actual Target Trough: 15-20 A: Based on: Trough level drawn > 1 hour early and patient's renal function P: 1. Dose adjusted to Vancomycin 750 mg IV q12h 2. Follow up Trough level on 10/31/18 at 1730 3. Pharmacy will continue to monitor, follow and adjust therapy as needed. JUAN DIEGO DEAN [facility], 10/31/18 [id number]
--- NOTE | 2018-10-31 18:24 | PDOC ---
PROGRESS NOTES Chief Complaint Chief Complaint Acute on chronic respiratory failure Bialteral pleural effusion Advanced multiple sclerosis tracheostomy history of seizures PEG tube baclofen pump colostomy Suprapubic catheter S.p thoracentesis > 1L History of Present Illness History of Present Illness discussed with , DC plan, will need new trach, concern about valve for talkgin may beed BIPAP at home, had been discsused cont the IV abx Opening eyes more to verbal today. Mumbling. No complaints. Vitals Vitals Vital Signs Date Time Temp Pulse Resp B/P (MAP) Pulse Ox O2 Delivery O2 Flow Rate FiO2 10/31/18 18:00 77 14 129/61 (83) 93 BiPAP/CPAP 10/31/18 16:00 98.8 98.8 10/31/18 00:00 10.0 Physical Exam Physical Exam GENERAL: Appears comfortable HEENT: JOHN, Oral cavity clear NECK: Tracheostomy in place. LUNGS: Bilateral decreased breath sounds. HEART: S1 and S2 regular. No gallop or murmur. ABDOMEN: Obese, distended, soft and nontender. PEG tube and SPC in place EXTREMITIES: Generalized edema. No cyanosis NEUROLOGICAL: Sleeping, quadriplegia SKIN: No rash RUE-PICC clean General: Alert, Cooperative, No acute distress Heart: Regular rate (SR), Other (distnat heart sounds) Lungs: Other (a few end exp wheezing) Abdomen: Soft Extremities: No cyanosis, Other (generalized edema trace to 1+) Skin: Other (suprapubic cath, PEG tube in place, trach site intact) Labs LABS Laboratory Tests Test 10/31/18 06:10 10/31/18 16:20 White Blood Count 6.7 x10^3/uL (4.0-11.0) Red Blood Count 3.61 x10^6/uL (3.50-5.40) Hemoglobin 10.9 g/dL (12.0-15.5) Hematocrit 34.1 % (36.0-47.0) Mean Corpuscular Volume 95 fL (79-100) Mean Corpuscular Hemoglobin 30 pg (25-35) Mean Corpuscular Hemoglobin Concent 32 g/dL (31-37) Red Cell Distribution Width 16.0 % (11.5-14.5) Platelet Count 229 x10^3/uL (140-400) Neutrophils (%) (Auto) 83 % (31-73) Lymphocytes (%) (Auto) 6 % (24-48) Monocytes (%) (Auto) 8 % (0-9) Eosinophils (%) (Auto) 3 % (0-3) Basophils (%) (Auto) 0 % (0-3) Neutrophils # (Auto) 5.5 x10^3uL (1.8-7.7) Lymphocytes # (Auto) 0.4 x10^3/uL (1.0-4.8) Monocytes # (Auto) 0.5 x10^3/uL (0.0-1.1) Eosinophils # (Auto) 0.2 x10^3/uL (0.0-0.7) Basophils # (Auto) 0.0 x10^3/uL (0.0-0.2) Sodium Level 146 mmol/L (136-145) Potassium Level 3.7 mmol/L (3.5-5.1) Chloride Level 105 mmol/L (98-107) Carbon Dioxide Level 34 mmol/L (21-32) Anion Gap 7 (6-14) Blood Urea Nitrogen 21 mg/dL (7-20) Creatinine 0.4 mg/dL (0.6-1.0) Estimated GFR (Cockcroft-Gault) 159.2 BUN/Creatinine Ratio 53 (6-20) Glucose Level 132 mg/dL (70-99) Calcium Level 8.9 mg/dL (8.5-10.1) Total Bilirubin 0.3 mg/dL (0.2-1.0) Aspartate Amino Transf (AST/SGOT) 31 U/L (15-37) Alanine Aminotransferase (ALT/SGPT) 42 U/L (14-59) Alkaline Phosphatase 70 U/L (46-116) Total Protein 6.5 g/dL (6.4-8.2) Albumin 2.0 g/dL (3.4-5.0) Albumin/Globulin Ratio 0.4 (1.0-1.7) Vancomycin Level Trough 23.9 mcg/mL (10.0-20.0) Vancomycin Last Dose Date 10/31/18 Vancomycin Last Dose Time 0607 Assessment and Plan Assessmemt and Plan Problems Medical Problems: (1) Hypercapnic respiratory failure Status: Acute Comment Review of Relevant I have reviewed the following items lucila (where applicable) has been applied. Labs Laboratory Tests Test 10/29/18 21:00 10/30/18 08:30 10/31/18 06:10 10/31/18 16:20 Vancomycin Level Trough 22.2 mcg/mL (10.0-20.0) 23.9 mcg/mL (10.0-20.0) Vancomycin Last Dose Date Unk 10/31/18 Vancomycin Last Dose Time Unk 0607 Creatinine 0.5 mg/dL (0.6-1.0) 0.4 mg/dL (0.6-1.0) Estimated GFR (Cockcroft-Gault) 123.1 159.2 White Blood Count 6.7 x10^3/uL (4.0-11.0) Red Blood Count 3.61 x10^6/uL (3.50-5.40) Hemoglobin 10.9 g/dL (12.0-15.5) Hematocrit 34.1 % (36.0-47.0) Mean Corpuscular Volume 95 fL (79-100) Mean Corpuscular Hemoglobin 30 pg (25-35) Mean Corpuscular Hemoglobin Concent 32 g/dL (31-37) Red Cell Distribution Width 16.0 % (11.5-14.5) Platelet Count 229 x10^3/uL (140-400) Neutrophils (%) (Auto) 83 % (31-73) Lymphocytes (%) (Auto) 6 % (24-48) Monocytes (%) (Auto) 8 % (0-9) Eosinophils (%) (Auto) 3 % (0-3) Basophils (%) (Auto) 0 % (0-3) Neutrophils # (Auto) 5.5 x10^3uL (1.8-7.7) Lymphocytes # (Auto) 0.4 x10^3/uL (1.0-4.8) Monocytes # (Auto) 0.5 x10^3/uL (0.0-1.1) Eosinophils # (Auto) 0.2 x10^3/uL (0.0-0.7) Basophils # (Auto) 0.0 x10^3/uL (0.0-0.2) Sodium Level 146 mmol/L (136-145) Potassium Level 3.7 mmol/L (3.5-5.1) Chloride Level 105 mmol/L (98-107) Carbon Dioxide Level 34 mmol/L (21-32) Anion Gap 7 (6-14) Blood Urea Nitrogen 21 mg/dL (7-20) BUN/Creatinine Ratio 53 (6-20) Glucose Level 132 mg/dL (70-99) Calcium Level 8.9 mg/dL (8.5-10.1) Total Bilirubin 0.3 mg/dL (0.2-1.0) Aspartate Amino Transf (AST/SGOT) 31 U/L (15-37) Alanine Aminotransferase (ALT/SGPT) 42 U/L (14-59) Alkaline Phosphatase 70 U/L (46-116) Total Protein 6.5 g/dL (6.4-8.2) Albumin 2.0 g/dL (3.4-5.0) Albumin/Globulin Ratio 0.4 (1.0-1.7) Laboratory Tests Test 10/31/18 06:10 10/31/18 16:20 White Blood Count 6.7 x10^3/uL (4.0-11.0) Red Blood Count 3.61 x10^6/uL (3.50-5.40) Hemoglobin 10.9 g/dL (12.0-15.5) Hematocrit 34.1 % (36.0-47.0) Mean Corpuscular Volume 95 fL (79-100) Mean Corpuscular Hemoglobin 30 pg (25-35) Mean Corpuscular Hemoglobin Concent 32 g/dL (31-37) Red Cell Distribution Width 16.0 % (11.5-14.5) Platelet Count 229 x10^3/uL (140-400) Neutrophils (%) (Auto) 83 % (31-73) Lymphocytes (%) (Auto) 6 % (24-48) Monocytes (%) (Auto) 8 % (0-9) Eosinophils (%) (Auto) 3 % (0-3) Basophils (%) (Auto) 0 % (0-3) Neutrophils # (Auto) 5.5 x10^3uL (1.8-7.7) Lymphocytes # (Auto) 0.4 x10^3/uL (1.0-4.8) Monocytes # (Auto) 0.5 x10^3/uL (0.0-1.1) Eosinophils # (Auto) 0.2 x10^3/uL (0.0-0.7) Basophils # (Auto) 0.0 x10^3/uL (0.0-0.2) Sodium Level 146 mmol/L (136-145) Potassium Level 3.7 mmol/L (3.5-5.1) Chloride Level 105 mmol/L (98-107) Carbon Dioxide Level 34 mmol/L (21-32) Anion Gap 7 (6-14) Blood Urea Nitrogen 21 mg/dL (7-20) Creatinine 0.4 mg/dL (0.6-1.0) Estimated GFR (Cockcroft-Gault) 159.2 BUN/Creatinine Ratio 53 (6-20) Glucose Level 132 mg/dL (70-99) Calcium Level 8.9 mg/dL (8.5-10.1) Total Bilirubin 0.3 mg/dL (0.2-1.0) Aspartate Amino Transf (AST/SGOT) 31 U/L (15-37) Alanine Aminotransferase (ALT/SGPT) 42 U/L (14-59) Alkaline Phosphatase 70 U/L (46-116) Total Protein 6.5 g/dL (6.4-8.2) Albumin 2.0 g/dL (3.4-5.0) Albumin/Globulin Ratio 0.4 (1.0-1.7) Vancomycin Level Trough 23.9 mcg/mL (10.0-20.0) Vancomycin Last Dose Date 10/31/18 Vancomycin Last Dose Time 0607 Microbiology 10/26/18 Blood Culture - Final, Complete NO GROWTH AFTER 5 DAYS 10/27/18 Anaerobic/Aerobic Culture, Resulted Pending 10/27/18 Anaerobic Culture Result 1 (NANDO), Resulted Pending 10/27/18 Aerobic Culture - Final, Resulted 10/27/18 Aerobic Culture Result 1 (NANDO) - Final, Resulted 10/27/18 Gram Stain - Final, Resulted 10/27/18 Gram Stain Result 1 (NANDO) - Final, Resulted 10/27/18 Gram Stain Result 2 (NANDO) - Final, Resulted 10/25/18 Urine Culture - Final, Complete 10/25/18 Urine Culture Result 1 (NANDO) - Final, Complete 10/25/18 Urine Culture Result 2 (NANDO) - Final, Complete 10/25/18 Antimicrobic Susceptibility - Final, Complete 10/27/18 Anaerobic/Aerobic Culture, Resulted Pending 10/27/18 Anaerobic Culture Result 1 (NANDO), Resulted Pending 10/27/18 Aerobic Culture - Final, Resulted 10/27/18 Aerobic Culture Result 1 (NANDO) - Final, Resulted 10/27/18 Antimicrobic Susceptibility - Final, Resulted 10/27/18 Gram Stain - Final, Resulted 10/27/18 Gram Stain Result 1 (NANDO) - Final, Resulted 10/27/18 Gram Stain Result 2 (NANDO) - Final, Resulted Medications Current Medications Sodium Chloride 1,000 ml @ 1,000 mls/hr Q1H IV Last administered on 10/25/18at 19:04; Start 10/25/18 at 17:28; Stop 10/25/18 at 18:27; Status DC Albuterol/ Ipratropium (Duoneb) 3 ml 1X ONCE NEB Last administered on at 17:53; Start 10/25/18 at 17:30; Stop 10/25/18 at 17:31; Status DC Methylprednisolone Sodium Succinate (SOLU-Medrol 125MG VIAL) 125 mg 1X ONCE IV Last administered on 10/25/18at 19:04; Start 10/25/18 at 17:30; Stop 10/25/18 at 17:31; Status DC Ceftriaxone Sodium (Rocephin) 1 gm 1X ONCE IVP Last administered on 10/25/18at 20:24; Start 10/25/18 at 19:00; Stop 10/25/18 at 19:02; Status DC Ondansetron HCl (Zofran) 4 mg PRN Q8HRS PRN IV NAUSEA/VOMITING; Start 10/25/18 at 20:15; Stop 10/26/18 at 20:14; Status DC Sodium Chloride 1,000 ml @ 126 mls/hr Q7H57M IV ; Start 10/25/18 at 20:07; Stop 10/26/18 at 07:12; Status DC Acetaminophen (Tylenol) 650 mg 1X ONCE PEG Last administered on 10/26/18at 04:59 ; Start 10/26/18 at 04:30; Stop 10/26/18 at 04:32; Status DC Piperacillin Sod/ Tazobactam Sod (Zosyn Per Pharmacy) 1 each PRN DAILY PRN MC SEE COMMENTS; Start 10/26/18 at 07:15 Vancomycin HCl (Vanco Per Pharmacy) 1 each PRN DAILY PRN MC SEE COMMENTS Last administered on 10/31/18at 17:49; Start 10/26/18 at 07:15 Piperacillin Sod/ Tazobactam Sod 3.375 gm/Sodium Chloride 50 ml @ 100 mls/hr Q6HRS IV Last administered on 10/31/18 18:14; Start 10/26/18 at 08:00 Vancomycin HCl 1.75 gm/Sodium Chloride 500 ml @ 250 mls/hr 1X ONCE IV Last administered on 10/26/18at 09:25; Start 10/26/18 at 08:00; Stop 10/26/18 at 09:59; Status DC Azithromycin (Zithromax) 250 mg DAILY PO ; Start 10/27/18 at 09:00; Status UNV Baclofen (Lioresal) 10 mg TID PO Last administered on 10/31/18 14:13; Start at 14:00 Diazepam (Valium) 2 mg TID PO Last administered on 10/31/18at 14:13; Start at 14:00 Diltiazem HCl (Cardizem) 30 mg QHS PO Last administered on 10/30/18at 20:58; Start 10/26/18 at 21:00 Estradiol (Climara Weekly) 1 mg WEEKLY TD ; Start 11/02/18 at 09:00 Levetiracetam (Keppra) 750 mg BID PO Last administered on 10/31/18 08:56; Start 10/26/18 at 12:00 Metoprolol Tartrate (Lopressor) 25 mg BID PO Last administered on 10/31/18at 08: 57; Start 10/26/18 at 12:00 Sodium Monofluorophosphate (Fleet Adult) 133 ml DAILY PRN RC constipation; Start 10/26/18 at 11:15 Nystatin (Nystop) 1 parag PRN BID PRN TP RASH; Start 10/26/18 at 11:15; Stop 10/27 at 10:35; Status DC Acetaminophen (Tylenol) 500 mg PRN Q6HRS PRN PO MILD PAIN / TEMP; Start at 11:30 Non-Formulary Medication (Cran/C/B.coag/ Fos/L.acid/L.rha (Probiotic Plus & Cranberry Cap)) 1 each BID PO ; Start 10/26/18 at 21:00; Status UNV Diltiazem HCl (Cardizem) 60 mg DAILY16 PO Last administered on 10/31/18at 16:21 ; Start 10/26/18 at 16:00 Diltiazem HCl (Cardizem) 60 mg DAILY07 PO Last administered on 10/31/18at 07:07 ; Start 10/27/18 at 07:00 Non-Formulary Medication (Levalbuterol Hcl ) 0.63 mg TID IH ; Start 10/26/18 at 14:00; Status UNV Non-Formulary Medication (Levalbuterol Hcl (Xopenex)) 1 vial TID NEB ; Start 10/26/18 at 14:00; Status UNV Non-Formulary Medication (Modafinil (Provigil)) 200 mg DAILY PO Last administered on 10/31/18at 08:56; Start 10/27/18 at 11:30 Non-Formulary Medication (Norethindrone (Karishma)) 0.35 mg DAILY PO ; Start 10/27 at 09:00; Status UNV Paroxetine HCl (Paxil) 10 mg DAILY PO Last administered on 10/31/18at 08:56; Start 10/26/18 at 12:00 Scopolamine (Transderm-Scop) 1 patch Q3DAYS TD Last administered on 10/30/18at 08:41; Start 10/27/18 at 09:00 Non-Formulary Medication (Tiotropium [place] (Spiriva)) 18 mcg DAILY IH ; Start 10/27/18 at 09:00; Status UNV Albuterol/ Ipratropium (Duoneb) 3 ml RTQID NEB Last administered on 10/31/18at 15:59; Start 10/26/18 at 12:00 Albuterol Sulfate (Ventolin Neb Soln) 2.5 mg PRN TID PRN NEB SHORTNESS OF BREATH; Start 10/26/18 at 11:30 Vancomycin HCl 1 gm/Sodium Chloride 250 ml @ 250 mls/hr Q24H IV Last administered on 10/28/18at 09:51; Start 10/27/18 at 09:30; Stop 10/28/18 at 12:00 ; Status DC Vancomycin HCl (Vancomycin Trough Level) 1 each 1X ONCE MC Last administered on 10/28/18at 09:00; Start 10/28/18 at 09:00; Stop 10/28/18 at 09:01; Status DC Aspirin (Children'S Aspirin) 81 mg DAILYWBKFT PO Last administered on at 08:56; Start 10/26/18 at 14:30 Non-Formulary Medication 1 ea PRN TID PRN PO APPLY TO AFFECTED AREA Last administered on 10/27/18at 10:57; Start 10/27/18 at 11:00 Vancomycin HCl 1.25 gm/Sodium Chloride 250 ml @ 167 mls/hr Q12H IV Last administered on 10/29/18at 08:52; Start 10/28/18 at 22:00; Stop 10/29/18 at 22:05 ; Status DC Vancomycin HCl (Vancomycin Trough Level) 1 each 1X ONCE MC Last administered on 10/29/18at 21:30; Start 10/29/18 at 21:30; Stop 10/29/18 at 21:31; Status DC Vancomycin HCl 1 gm/Sodium Chloride 250 ml @ 250 mls/hr Q12H IV Last administered on 10/31/18at 06:07; Start 10/30/18 at 05:00; Stop 10/31/18 at 17:34 ; Status DC Vancomycin HCl (Vancomycin Trough Level) 1 each 1X ONCE MC Last administered on 10/31/18at 17:30; Start 10/31/18 at 17:30; Stop 10/31/18 at 17:34; Status DC Budesonide (Pulmicort) 0.5 mg RTBID NEB Last administered on 10/31/18at 08:16; Start 10/30/18 at 08:00 Docusate Sodium (Enemeez) 283 mg PRN DAILY PRN [place] CONSTIPATION; Start 10/30/18 at 10:30 Vancomycin HCl 750 mg/Sodium Chloride 250 ml @ 250 mls/hr Q12H IV ; Start 10/31 at 20:00 Vancomycin HCl (Vancomycin Trough Level) 1 each 1X ONCE MC ; Start 11/02/18 at 07:30; Stop 11/02/18 at 07:31 Active Scripts Active Reported Cardizem Tablet (Diltiazem Hcl) 30 Mg Tablet 30 Mg PO HS PRN Enema Ready To Use (Na Phos,M-B/Na Phos,Di-Ba) 133 Ml Enema 133 Ml RC Acetaminophen 500 Mg Tablet 1 Tab PO Q6HRS Probiotic Plus & Cranberry Cap (Cran/C/B.coag/Fos/L.acid/L.rha) 1 Each Capsule 1 Each PO BID Azithromycin Tablet (Azithromycin) 250 Mg Tablet 250 Mg PO DAILY Estradiol Transdermal Patch (Estradiol) 1 Each Patch.tdwk 1 Each TD BID WEEKLY Next dose 06/30/17 Karishma (Norethindrone) 0.35 Mg Tablet 0.35 Mg PO DAILY Keppra (Levetiracetam) 500 Mg Tablet 750 Mg PO BID Cardizem Tablet (Diltiazem Hcl) 60 Mg Tablet 60 Mg PO DAILY16 Metoprolol Tartrate 25 Mg Tablet 1 Tab PO BID Xopenex (Levalbuterol Hcl) 0.63 Mg/3 Ml Vial.neb 1 Vial NEB TID Valium (Diazepam) 2 Mg Tablet 2 Mg PO TID Transderm-Scop (Scopolamine) 1 Each Patch.td72 1 Each TD Q3DAYS Indication: secretions Next dose: 06/30/17 am Nystop (Nystatin) 60 Gm Powder 60 Gm TP PRN Indication: rash NExt dose: as needed Levalbuterol Hcl 0.63 Mg/3 Ml Vial.neb 0.63 Mg IH TID Spiriva (Tiotropium [place]) 18 Mcg Cap.w.dev 18 Mcg IH DAILY Diltiazem Hcl Tablet (Diltiazem Hcl) 60 Mg Tablet 60 Mg PO DAILY07 Provigil (Modafinil) 200 Mg Tablet 200 Mg PO DAILY Paxil (Paroxetine Hcl) 10 Mg/5 Ml Oral.susp 10 Mg PO DAILY Baclofen 10 Mg Tablet 10 Mg PO TID Vitals/I & O Vital Sign - Last 24 Hours 10/30/18 10/30/18 10/30/18 10/30/18 19:00 20:00 20:00 20:10 Temp 98.3 98.3 Pulse 91 86 Resp 23 19 B/P (MAP) 141/65 (90) 160/70 (100) Pulse Ox 93 94 97 O2 Delivery Tracheal Collar Trach Collar Tracheal Collar AP NEB O2 Flow Rate 10.0 10.0 12.0 10/30/18 10/30/18 10/30/18 10/30/18 20:58 20:59 21:00 22:00 Pulse 89 89 90 78 Resp 19 19 B/P (MAP) 160/70 160/70 158/76 (103) 154/69 (97) Pulse Ox 93 94 O2 Delivery Tracheal Collar Tracheal Collar O2 Flow Rate 10.0 10.0 10/30/18 10/31/18 10/31/18 10/31/18 23:00 00:00 00:00 01:00 Temp 98.6 98.6 Pulse 83 87 87 Resp 20 20 14 B/P (MAP) 156/74 (101) 162/82 (108) 157/73 (101) Pulse Ox 94 95 94 O2 Delivery Tracheal Collar Trach Collar Tracheal Collar BiPAP/CPAP O2 Flow Rate 10.0 10.0 10/31/18 10/31/18 10/31/18 10/31/18 01:18 02:00 03:00 03:05 Pulse 81 82 Resp 13 14 B/P (MAP) 140/73 (95) 137/70 (92) Pulse Ox 94 95 95 99 O2 Delivery BiPAP/CPAP BiPAP/CPAP BiPAP/CPAP BiPAP/CPAP 10/31/18 10/31/18 10/31/18 10/31/18 04:00 04:00 05:00 05:20 Temp 98.9 98.9 Pulse 91 80 Resp 16 14 B/P (MAP) 137/73 (94) 97/54 (68) Pulse Ox 95 94 95 O2 Delivery Trach Collar BiPAP/CPAP BiPAP/CPAP BiPAP/CPAP 10/31/18 10/31/18 10/31/18 10/31/18 06:00 07:00 07:07 08:00 Pulse 87 86 87 Resp 14 14 B/P (MAP) 154/68 (96) 99/60 (73) 99/60 Pulse Ox 96 95 O2 Delivery BiPAP/CPAP BiPAP/CPAP Bi-pap 10/31/18 10/31/18 10/31/18 10/31/18 08:00 08:18 08:57 09:00 Temp 97.5 97.5 Pulse 73 78 67 Resp 14 13 B/P (MAP) 88/50 (63) 132/66 146/63 (90) Pulse Ox 97 96 92 O2 Delivery BiPAP/CPAP BiPAP/CPAP BiPAP/CPAP 10/31/18 10/31/18 10/31/18/14/19 10:00 10:13 11:00 12:00 Temp 97.7 97.7 Pulse 68 69 68 Resp 14 13 13 B/P (MAP) 115/67 (83) 108/63 (78) 110/64 (79) Pulse Ox 93 93 96 96 O2 Delivery BiPAP/CPAP BiPAP/CPAP BiPAP/CPAP BiPAP/CPAP 10/31/18 10/31/18 10/31/18 10/31/18 12:00 12:57 13:00 14:00 Pulse 74 72 Resp 14 13 B/P (MAP) 123/72 (89) 115/61 (79) Pulse Ox 95 94 93 O2 Delivery Bi-pap BiPAP/CPAP BiPAP/CPAP BiPAP/CPAP 10/31/18 10/31/18 10/31/18 10/31/18 15:00 15:59 16:00 16:00 Temp 98.8 98.8 Pulse 76 86 Resp 13 16 B/P (MAP) 107/59 (75) 146/76 (99) Pulse Ox 93 95 93 O2 Delivery BiPAP/CPAP BiPAP/CPAP BiPAP/CPAP Bi-pap 10/31/18 10/31/18 10/31/18 16:21 17:00 18:00 Pulse 86 84 77 Resp 19 14 B/P (MAP) 146/76 131/69 (89) 129/61 (83) Pulse Ox 89 93 O2 Delivery BiPAP/CPAP BiPAP/CPAP Intake and Output 10/30/18 10/30/18 10/31/18 14:59 22:59 06:59 Intake Total 255 ml 2889 ml 0 ml Output Total 1000 ml 475 ml 0 ml Balance -745 ml 2414 ml 0 ml MAYO WAITE MD Oct 31, 2018 18:24
[2018-10-31] MEDS: VANCOMYCIN 750 MG in IV NORMAL SALINE 250ML 250 ML IV SCH (20:32)
--- NOTE | 2018-10-31 23:00 | NUR ---
this nurse taking pics of wounds per protocol. no wound noted to left ischium/buttock area. healing area noted, blanchable upon assessment. no picture taken and no foam applied. picture of left ischium taken per protocol. will pass on in report, will continue to closely monitor.
[2018-11-01] VITALS (24 sets, daily range): BP systolic 85–154; BP diastolic 52–78
[2018-11-01] MEDS: PIPERACILLIN/TAZOBACTAM 3.375 GM in IV NORMAL SALINE 50ML 50 ML IV SCH ×2 (00:01→06:01)
[2018-11-01 06:46] LABS: CREATININE 0.5 mg/dL (0.6-1.0); GFR 123.1
[2018-11-01] MEDS: IPRATRPIUM/ALBUTEROL 0.5/2.5MG 3 ML NEBU. NEB SCH ×4 (07:46→19:46)
[2018-11-01] MEDS: BUDESONIDE 0.5 MG/2 ML NEBU. NEB SCH ×2 (07:47→19:46)
--- NOTE | 2018-11-01 08:00 | RAD ---
Portable chest, 11/01/2018: HISTORY: Respiratory distress Comparison is made to a study from 10/31/2018. The tracheostomy tube and right PICC are unchanged in positions. There are moderate sized bilateral pleural effusions with underlying atelectasis/infiltrate. Allowing for differences in patient rotation the findings appear unchanged. There is no evidence of pneumothorax. No new abnormality is seen. IMPRESSION: No significant change since yesterday's study. Electronically signed by: Fabrizio Boyle MD (11/01/2018 7:57 AM) [facility]
[2018-11-01] MEDS: dilTIAZem HCL 30 MG TABLET PO SCH ×3 (08:26→21:01)
[2018-11-01] MEDS: levETIRAcetam 250 MG TABLET PO SCH ×2 (08:26→21:02)
[2018-11-01] MEDS: BACLOFEN 10 MG TABLET. PO SCH ×3 (08:27→21:02)
[2018-11-01] MEDS: ASPIRIN CHEWABLE 81 MG TABLET. PO SCH (08:27)
[2018-11-01] MEDS: PARoxetine 10 MG TABLET PO SCH (08:27)
[2018-11-01] MEDS: VANCOMYCIN 750 MG in IV NORMAL SALINE 250ML 250 ML IV SCH (08:27)
[2018-11-01] MEDS: diazePAM 2 MG TABLET PO SCH ×3 (08:27→21:01)
[2018-11-01] MEDS: METOPROLOL TART IMMED RELEASE 25 MG TABLET. PO SCH ×2 (08:27→21:02)
[2018-11-01] MEDS: NYSTATIN SUSPENSION PO PRN (08:33)
--- NOTE | 2018-11-01 08:47 | PDOC ---
PROGRESS NOTES Chief Complaint Chief Complaint Acute on chronic respiratory failure Bilateral pleural effusion Advanced multiple sclerosis tracheostomy history of seizures PEG tube baclofen pump colostomy Suprapubic catheter S.p thoracentesis > 1L History of Present Illness History of Present Illness discussed with , DC plan, will need new trach, concern about valve for talking may need BIPAP at home, had been discussed cont the IV abx Opening eyes more to verbal today. Mumbling. No complaints. Plan: Pleural fluid without growth. Staph epidermidis blood culture positive, trach with pseudomonas, Urine with enterococcus and pseudomonas F/u ID recs Vitals Vitals Vital Signs Date Time Temp Pulse Resp B/P (MAP) Pulse Ox O2 Delivery O2 Flow Rate FiO2 11/01/18 08:27 80 132/68 11/01/18 08:04 14 94 avap 11/01/18 07:30 10.0 11/01/18 04:00 99.1 99.1 Physical Exam Physical Exam GENERAL: Appears comfortable HEENT: JOHN, Oral cavity clear NECK: Tracheostomy in place. LUNGS: Bilateral decreased breath sounds. HEART: S1 and S2 regular. No gallop or murmur. ABDOMEN: Obese, distended, soft and nontender. PEG tube and SPC in place EXTREMITIES: Generalized edema. No cyanosis NEUROLOGICAL: Sleeping, quadriplegia SKIN: No rash RUE-PICC clean General: Alert, Cooperative, No acute distress Heart: Regular rate (SR), Other (distnat heart sounds) Lungs: Other (a few end exp wheezing) Abdomen: Soft Extremities: No cyanosis, Other (generalized edema trace to 1+) Skin: Other (suprapubic cath, PEG tube in place, trach site intact) Labs LABS Laboratory Tests Test 10/31/18 16:20 11/01/18 06:30 Vancomycin Level Trough 23.9 mcg/mL (10.0-20.0) Vancomycin Last Dose Date 10/31/18 Vancomycin Last Dose Time 0607 Creatinine 0.5 mg/dL (0.6-1.0) Estimated GFR (Cockcroft-Gault) 123.1 Assessment and Plan Assessmemt and Plan Problems Medical Problems: (1) Hypercapnic respiratory failure Status: Acute Comment Review of Relevant I have reviewed the following items lucila (where applicable) has been applied. Labs Laboratory Tests Test 10/31/18 06:10 4/14/19 16:20 11/01/18 06:30 White Blood Count 6.7 x10^3/uL (4.0-11.0) Red Blood Count 3.61 x10^6/uL (3.50-5.40) Hemoglobin 10.9 g/dL (12.0-15.5) Hematocrit 34.1 % (36.0-47.0) Mean Corpuscular Volume 95 fL (79-100) Mean Corpuscular Hemoglobin 30 pg (25-35) Mean Corpuscular Hemoglobin Concent 32 g/dL (31-37) Red Cell Distribution Width 16.0 % (11.5-14.5) Platelet Count 229 x10^3/uL (140-400) Neutrophils (%) (Auto) 83 % (31-73) Lymphocytes (%) (Auto) 6 % (24-48) Monocytes (%) (Auto) 8 % (0-9) Eosinophils (%) (Auto) 3 % (0-3) Basophils (%) (Auto) 0 % (0-3) Neutrophils # (Auto) 5.5 x10^3uL (1.8-7.7) Lymphocytes # (Auto) 0.4 x10^3/uL (1.0-4.8) Monocytes # (Auto) 0.5 x10^3/uL (0.0-1.1) Eosinophils # (Auto) 0.2 x10^3/uL (0.0-0.7) Basophils # (Auto) 0.0 x10^3/uL (0.0-0.2) Sodium Level 146 mmol/L (136-145) Potassium Level 3.7 mmol/L (3.5-5.1) Chloride Level 105 mmol/L (98-107) Carbon Dioxide Level 34 mmol/L (21-32) Anion Gap 7 (6-14) Blood Urea Nitrogen 21 mg/dL (7-20) Creatinine 0.4 mg/dL (0.6-1.0) 0.5 mg/dL (0.6-1.0) Estimated GFR (Cockcroft-Gault) 159.2 123.1 BUN/Creatinine Ratio 53 (6-20) Glucose Level 132 mg/dL (70-99) Calcium Level 8.9 mg/dL (8.5-10.1) Total Bilirubin 0.3 mg/dL (0.2-1.0) Aspartate Amino Transf (AST/SGOT) 31 U/L (15-37) Alanine Aminotransferase (ALT/SGPT) 42 U/L (14-59) Alkaline Phosphatase 70 U/L (46-116) Total Protein 6.5 g/dL (6.4-8.2) Albumin 2.0 g/dL (3.4-5.0) Albumin/Globulin Ratio 0.4 (1.0-1.7) Vancomycin Level Trough 23.9 mcg/mL (10.0-20.0) Vancomycin Last Dose Date 10/31/18 Vancomycin Last Dose Time 06 Laboratory Tests Test 10/31/18 16:20 11/01/18 06:30 Vancomycin Level Trough 23.9 mcg/mL (10.0-20.0) Vancomycin Last Dose Date 10/31/18 Vancomycin Last Dose Time 06 Creatinine 0.5 mg/dL (0.6-1.0) Estimated GFR (Cockcroft-Gault) 123.1 Microbiology 10/26/18 Blood Culture - Final, Complete NO GROWTH AFTER 5 DAYS 10/27/18 Anaerobic/Aerobic Culture, Resulted Pending 10/27/18 Anaerobic Culture Result 1 (NANDO), Resulted Pending 10/27/18 Aerobic Culture - Final, Resulted 10/27/18 Aerobic Culture Result 1 (NANDO) - Final, Resulted 10/27/18 Gram Stain - Final, Resulted 10/27/18 Gram Stain Result 1 (NANDO) - Final, Resulted 10/27/18 Gram Stain Result 2 (NANDO) - Final, Resulted 10/25/18 Urine Culture - Final, Complete 10/25/18 Urine Culture Result 1 (NANDO) - Final, Complete 10/25/18 Urine Culture Result 2 (NANDO) - Final, Complete 10/25/18 Antimicrobic Susceptibility - Final, Complete 10/27/18 Anaerobic/Aerobic Culture, Resulted Pending 10/27/18 Anaerobic Culture Result 1 (NANDO), Resulted Pending 10/27/18 Aerobic Culture - Final, Resulted 10/27/18 Aerobic Culture Result 1 (NANDO) - Final, Resulted 10/27/18 Antimicrobic Susceptibility - Final, Resulted 10/27/18 Gram Stain - Final, Resulted 10/27/18 Gram Stain Result 1 (NANDO) - Final, Resulted 10/27/18 Gram Stain Result 2 (NANDO) - Final, Resulted Medications Current Medications Sodium Chloride 1,000 ml @ 1,000 mls/hr Q1H IV Last administered on 10/25/18at 19:04; Start 10/25/18 at 17:28; Stop 10/25/18 at 18:27; Status DC Albuterol/ Ipratropium (Duoneb) 3 ml 1X ONCE NEB Last administered on at 17:53; Start 10/25/18 at 17:30; Stop 10/25/18 at 17:31; Status DC Methylprednisolone Sodium Succinate (SOLU-Medrol 125MG VIAL) 125 mg 1X ONCE IV Last administered on 10/25/18at 19:04; Start 10/25/18 at 17:30; Stop 10/25/18 at 17:31; Status DC Ceftriaxone Sodium (Rocephin) 1 gm 1X ONCE IVP Last administered on 10/25/18at 20:24; Start 10/25/18 at 19:00; Stop 10/25/18 at 19:02; Status DC Ondansetron HCl (Zofran) 4 mg PRN Q8HRS PRN IV NAUSEA/VOMITING; Start 10/25/18 at 20:15; Stop 10/26/18 at 20:14; Status DC Sodium Chloride 1,000 ml @ 126 mls/hr Q7H57M IV ; Start 10/25/18 at 20:07; Stop 10/26/18 at 07:12; Status DC Acetaminophen (Tylenol) 650 mg 1X ONCE PEG Last administered on 10/26/18at 04:59 ; Start 10/26/18 at 04:30; Stop 10/26/18 at 04:32; Status DC Piperacillin Sod/ Tazobactam Sod (Zosyn Per Pharmacy) 1 each PRN DAILY PRN MC SEE COMMENTS; Start 10/26/18 at 07:15 Vancomycin HCl (Vanco Per Pharmacy) 1 each PRN DAILY PRN MC SEE COMMENTS Last administered on 10/31/18at 17:49; Start 10/26/18 at 07:15 Piperacillin Sod/ Tazobactam Sod 3.375 gm/Sodium Chloride 50 ml @ 100 mls/hr Q6HRS IV Last administered on 11/01/18at 06:01; Start 10/26/18 at 08:00 Vancomycin HCl 1.75 gm/Sodium Chloride 500 ml @ 250 mls/hr 1X ONCE IV Last administered on 10/26/18 09:25; Start 10/26/18 at 08:00; Stop 10/26/18 at 09:59; Status DC Azithromycin (Zithromax) 250 mg DAILY PO ; Start 10/27/18 at 09:00; Status UNV Baclofen (Lioresal) 10 mg TID PO Last administered on 11/01/18 08:27; Start at 14:00 Diazepam (Valium) 2 mg TID PO Last administered on 11/01/18 08:27; Start at 14:00 Diltiazem HCl (Cardizem) 30 mg QHS PO Last administered on 10/31/18 21:05; Start 10/26/18 at 21:00 Estradiol (Climara Weekly) 1 mg WEEKLY TD ; Start 11/02/18 at 09:00 Levetiracetam (Keppra) 750 mg BID PO Last administered on 11/01/18 08:26; Start 10/26/18 at 12:00 Metoprolol Tartrate (Lopressor) 25 mg BID PO Last administered on 11/01/18 08: 27; Start 10/26/18 at 12:00 Sodium Monofluorophosphate (Fleet Adult) 133 ml DAILY PRN RC constipation; Start 10/26/18 at 11:15 Nystatin (Nystop) 1 parag PRN BID PRN TP RASH; Start 10/26/18 at 11:15; Stop 10/27 at 10:35; Status DC Acetaminophen (Tylenol) 500 mg PRN Q6HRS PRN PO MILD PAIN / TEMP; Start at 11:30 Non-Formulary Medication (Cran/C/B.coag/ Fos/L.acid/L.rha (Probiotic Plus & Cranberry Cap)) 1 each BID PO ; Start 10/26/18 at 21:00; Status UNV Diltiazem HCl (Cardizem) 60 mg DAILY16 PO Last administered on 10/31/18 16:21 ; Start 10/26/18 at 16:00 Diltiazem HCl (Cardizem) 60 mg DAILY07 PO Last administered on 11/01/18 08:26 ; Start 10/27/18 at 07:00 Non-Formulary Medication (Levalbuterol Hcl ) 0.63 mg TID IH ; Start 10/26/18 at 14:00; Status UNV Non-Formulary Medication (Levalbuterol Hcl (Xopenex)) 1 vial TID NEB ; Start 10/26/18 at 14:00; Status UNV Non-Formulary Medication (Modafinil (Provigil)) 200 mg DAILY PO Last administered on 10/31/18at 08:56; Start 10/27/18 at 11:30 Non-Formulary Medication (Norethindrone (Karishma)) 0.35 mg DAILY PO ; Start 10/27 at 09:00; Status UNV Paroxetine HCl (Paxil) 10 mg DAILY PO Last administered on 11/01/18 08:27; Start 10/26/18 at 12:00 Scopolamine (Transderm-Scop) 1 patch Q3DAYS TD Last administered on 10/30/18 08:41; Start 10/27/18 at 09:00 Non-Formulary Medication (Tiotropium [place] (Spiriva)) 18 mcg DAILY IH ; Start 10/27/18 at 09:00; Status UNV Albuterol/ Ipratropium (Duoneb) 3 ml RTQID NEB Last administered on 11/01/18at 07:46; Start 10/26/18 at 12:00 Albuterol Sulfate (Ventolin Neb Soln) 2.5 mg PRN TID PRN NEB SHORTNESS OF BREATH; Start 10/26/18 at 11:30 Vancomycin HCl 1 gm/Sodium Chloride 250 ml @ 250 mls/hr Q24H IV Last administered on 10/28/18at 09:51; Start 10/27/18 at 09:30; Stop 10/28/18 at 12:00 ; Status DC Vancomycin HCl (Vancomycin Trough Level) 1 each 1X ONCE MC Last administered on 10/28/18at 09:00; Start 10/28/18 at 09:00; Stop 10/28/18 at 09:01; Status DC Aspirin (Children'S Aspirin) 81 mg DAILYWBKFT PO Last administered on at 08:27; Start 10/26/18 at 14:30 Non-Formulary Medication 1 ea PRN TID PRN PO APPLY TO AFFECTED AREA Last administered on 11/01/18 08:33; Start 10/27/18 at 11:00 Vancomycin HCl 1.25 gm/Sodium Chloride 250 ml @ 167 mls/hr Q12H IV Last administered on 10/29/18at 08:52; Start 10/28/18 at 22:00; Stop 10/29/18 at 22:05 ; Status DC Vancomycin HCl (Vancomycin Trough Level) 1 each 1X ONCE MC Last administered on 10/29/18at 21:30; Start 10/29/18 at 21:30; Stop 10/29/18 at 21:31; Status DC Vancomycin HCl 1 gm/Sodium Chloride 250 ml @ 250 mls/hr Q12H IV Last administered on 10/31/18at 06:07; Start 10/30/18 at 05:00; Stop 10/31/18 at 17:34 ; Status DC Vancomycin HCl (Vancomycin Trough Level) 1 each 1X ONCE MC Last administered on 10/31/18at 17:30; Start 10/31/18 at 17:30; Stop 10/31/18 at 17:34; Status DC Budesonide (Pulmicort) 0.5 mg RTBID NEB Last administered on 11/01/18at 07:47; Start 10/30/18 at 08:00 Docusate Sodium (Enemeez) 283 mg PRN DAILY PRN AR CONSTIPATION; Start 10/30/18 at 10:30 Vancomycin HCl 750 mg/Sodium Chloride 250 ml @ 250 mls/hr Q12H IV Last administered on 11/01/18at 08:27; Start 10/31/18 at 20:00 Vancomycin HCl (Vancomycin Trough Level) 1 each 1X ONCE MC ; Start 11/02/18 at 07:30; Stop 11/02/18 at 07:31 Active Scripts Active Reported Cardizem Tablet (Diltiazem Hcl) 30 Mg Tablet 30 Mg PO HS PRN Enema Ready To Use (Na Phos,M-B/Na Phos,Di-Ba) 133 Ml Enema 133 Ml RC Acetaminophen 500 Mg Tablet 1 Tab PO Q6HRS Probiotic Plus & Cranberry Cap (Cran/C/B.coag/Fos/L.acid/L.rha) 1 Each Capsule 1 Each PO BID Azithromycin Tablet (Azithromycin) 250 Mg Tablet 250 Mg PO DAILY Estradiol Transdermal Patch (Estradiol) 1 Each Patch.tdwk 1 Each TD BID WEEKLY Next dose 06/30/17 Karishma (Norethindrone) 0.35 Mg Tablet 0.35 Mg PO DAILY Keppra (Levetiracetam) 500 Mg Tablet 750 Mg PO BID Cardizem Tablet (Diltiazem Hcl) 60 Mg Tablet 60 Mg PO DAILY16 Metoprolol Tartrate 25 Mg Tablet 1 Tab PO BID Xopenex (Levalbuterol Hcl) 0.63 Mg/3 Ml Vial.neb 1 Vial NEB TID Valium (Diazepam) 2 Mg Tablet 2 Mg PO TID Transderm-Scop (Scopolamine) 1 Each Patch.td72 1 Each TD Q3DAYS Indication: secretions Next dose: 06/30/17 am Nystop (Nystatin) 60 Gm Powder 60 Gm TP PRN Indication: rash NExt dose: as needed Levalbuterol Hcl 0.63 Mg/3 Ml Vial.neb 0.63 Mg IH TID Spiriva (Tiotropium [place]) 18 Mcg Cap.w.dev 18 Mcg IH DAILY Diltiazem Hcl Tablet (Diltiazem Hcl) 60 Mg Tablet 60 Mg PO DAILY07 Provigil (Modafinil) 200 Mg Tablet 200 Mg PO DAILY Paxil (Paroxetine Hcl) 10 Mg/5 Ml Oral.susp 10 Mg PO DAILY Baclofen 10 Mg Tablet 10 Mg PO TID Vitals/I & O Vital Sign - Last 24 Hours 10/31/18 10/31/18 10/31/18 10/31/18 08:57 09:00 10:00 10:13 Pulse 78 67 68 Resp 13 14 B/P (MAP) 132/66 146/63 (90) 115/67 (83) Pulse Ox 92 93 93 O2 Delivery BiPAP/CPAP BiPAP/CPAP BiPAP/CPAP 10/31/18 10/31/18 10/31/18 10/31/18 11:00 12:00 12:00 12:57 Temp 97.7 97.7 Pulse 69 68 Resp 13 13 B/P (MAP) 108/63 (78) 110/64 (79) Pulse Ox 96 96 95 O2 Delivery BiPAP/CPAP BiPAP/CPAP Bi-pap BiPAP/CPAP 10/31/18 10/31/18 10/31/18 10/31/18 13:00 14:00 15:00 15:59 Pulse 74 72 76 Resp 14 13 13 B/P (MAP) 123/72 (89) 115/61 (79) 107/59 (75) Pulse Ox 94 93 93 95 O2 Delivery BiPAP/CPAP BiPAP/CPAP BiPAP/CPAP BiPAP/CPAP 10/31/18 10/31/18 10/31/18 10/31/18 16:00 16:00 16:21 17:00 Temp 98.8 98.8 Pulse 86 86 84 Resp 16 19 B/P (MAP) 146/76 (99) 146/76 131/69 (89) Pulse Ox 93 89 O2 Delivery BiPAP/CPAP Bi-pap BiPAP/CPAP 10/31/18 10/31/18 10/31/18 10/31/18 18:00 18:24 19:00 20:00 Pulse 77 77 Resp 14 12 B/P (MAP) 129/61 (83) 106/50 (68) Pulse Ox 93 93 93 O2 Delivery BiPAP/CPAP BiPAP/CPAP BiPAP/CPAP Bi-pap 10/31/18 10/31/18 10/31/18 10/31/18 20:00 20:04 20:06 21:00 Temp 98.7 98.7 Pulse 80 79 Resp 14 14 B/P (MAP) 115/62 (79) 107/60 (76) Pulse Ox 98 96 96 94 O2 Delivery BiPAP/CPAP BiPAP/CPAP BiPAP/CPAP BiPAP/CPAP 10/31/18 10/31/18 10/31/18 10/31/18 21:05 21:06 22:00 23:00 Pulse 80 80 74 77 Resp 13 14 B/P (MAP) 107/60 107/60 103/62 (76) 120/63 (82) Pulse Ox 92 95 O2 Delivery BiPAP/CPAP BiPAP/CPAP 11/01/18 11/01/18 11/01/18 11/01/18 00:00 00:00 00:00 01:00 Temp 99.0 99.0 Pulse 79 72 Resp 19 13 B/P (MAP) 98/56 (70) 112/58 (76) Pulse Ox 95 95 93 O2 Delivery BiPAP/CPAP Bi-pap BiPAP/CPAP BiPAP/CPAP 11/01/18 11/01/18 11/01/18 11/01/18 02:00 03:00 03:00 04:00 Pulse 72 75 Resp 14 14 B/P (MAP) 85/52 (63) 93/56 (68) Pulse Ox 94 95 95 O2 Delivery BiPAP/CPAP BiPAP/CPAP BiPAP/CPAP Bi-pap 11/01/18 11/01/18 11/01/18 11/01/18 04:00 05:00 05:51 06:00 Temp 99.1 99.1 Pulse 75 70 76 Resp 14 13 13 B/P (MAP) 116/69 (85) 94/56 (69) 114/58 (76) Pulse Ox 95 94 95 95 O2 Delivery BiPAP/CPAP BiPAP/CPAP BiPAP/CPAP BiPAP/CPAP 11/01/18 11/01/18 11/01/18 11/01/18 07:00 07:27 07:30 07:47 Pulse 80 Resp 14 B/P (MAP) 125/61 (82) Pulse Ox 94 95 O2 Delivery avap Bi-pap BiPAP/CPAP O2 Flow Rate 10.0 11/01/18 11/01/18 11/01/18 08:04 08:26 08:27 Pulse 80 80 80 Resp 14 B/P (MAP) 132/68 (89) 132/68 132/68 Pulse Ox 94 O2 Delivery avap Intake and Output 10/31/18 10/31/18 11/01/18 15:00 23:00 07:00 Intake Total 250 ml 1336 ml 0 ml Output Total 200 ml 150 ml 0 ml Balance 50 ml 1186 ml 0 ml FLAQUITO LIRA MD Nov 01, 2018 08:47
--- NOTE | 2018-11-01 09:16 | PDOC ---
Infectious Disease Note Subjective: Subjective Trach/vent FiO2 40% Tube feedings 50 ml/hr No fevers cont to have a lot of resp secretions Vital Signs: Vital Signs Vital Signs Date Time Temp Pulse Resp B/P (MAP) Pulse Ox O2 Delivery O2 Flow Rate FiO2 11/01/18 08:27 80 132/68 11/01/18 08:04 14 94 avap 11/01/18 07:30 10.0 11/01/18 04:00 99.1 99.1 Physical Exam: PHYSICAL EXAM GENERAL: Appears comfortable HEENT: JOHN, Oral cavity clear NECK: Tracheostomy in place. LUNGS: Bilateral decreased breath sounds. HEART: S1 and S2 regular. No gallop or murmur. ABDOMEN: Obese, distended, soft and nontender. PEG tube and SPC in place EXTREMITIES: Generalized edema. No cyanosis NEUROLOGICAL: Sleeping, quadriplegia SKIN: No rash RUE-PICC clean Medications: Inpatient Meds: Current Medications Medications (Trade) Dose Ordered Sig/Lidia Start Time Stop Time Status Last Admin Dose Admin Acetaminophen (Tylenol) 500 mg PRN Q6HRS PRN 10/26/18 11:30 Albuterol Sulfate (Ventolin Neb Soln) 2.5 mg PRN TID PRN 10/26/18 11:30 Albuterol/ Ipratropium (Duoneb) 3 ml RTQID 10/26/18 12:00 11/01/18 07:46 3 ML Aspirin (Children'S Aspirin) 81 mg DAILYWBKFT 10/26/18 14:30 11/01/18 08:27 81 MG Azithromycin (Zithromax) 250 mg DAILY 10/27/18 09:00 UNV Baclofen (Lioresal) 10 mg TID 10/26/18 14:00 11/01/18 08:27 10 MG Budesonide (Pulmicort) 0.5 mg RTBID 10/30/18 08:00 11/01/18 07:47 0.5 MG Ceftriaxone Sodium (Rocephin) 1 gm 1X ONCE 10/25/18 19:00 10/25/18 19:02 DC 10/25/18 20:24 1 GM Diazepam (Valium) 2 mg TID 10/26/18 14:00 11/01/18 08:27 2 MG Diltiazem HCl (Cardizem) 60 mg DAILY07 10/27/18 07:00 11/01/18 08:26 60 MG Docusate Sodium (Enemeez) 283 mg PRN DAILY PRN 10/30/18 10:30 Estradiol (Climara Weekly) 1 mg WEEKLY 11/02/18 09:00 Levetiracetam (Keppra) 750 mg BID 10/26/18 12:00 11/01/18 08:26 750 MG Methylprednisolone Sodium Succinate (SOLU-Medrol 125MG VIAL) 125 mg 1X ONCE 10/25/18 17:30 10/25/18 17:31 DC 10/25/18 19:04 125 MG Metoprolol Tartrate (Lopressor) 25 mg BID 10/26/18 12:00 11/01/18 08:27 25 MG Non-Formulary Medication 1 ea PRN TID PRN 10/27/18 11:00 11/01/18 08:33 1 EA Non-Formulary Medication (Cran/C/B.coag/ Fos/L.acid/L.rha (Probiotic Plus & Cranberry Cap)) 1 each BID 10/26/18 21:00 UNV Non-Formulary Medication (Levalbuterol Hcl (Xopenex)) 1 vial TID 10/26/18 14:00 UNV Non-Formulary Medication (Levalbuterol Hcl ) 0.63 mg TID 10/26/18 14:00 UNV Non-Formulary Medication (Modafinil (Provigil)) 200 mg DAILY 10/27/18 11:30 10/31/18 08:56 200 MG Non-Formulary Medication (Norethindrone (Karishma)) 0.35 mg DAILY 10/27/18 09:00 UNV Non-Formulary Medication (Tiotropium [place] (Spiriva)) 18 mcg DAILY 10/27/18 09:00 UNV Nystatin (Nystop) 1 parag PRN BID PRN 10/26/18 11:15 10/27/18 10:35 DC Ondansetron HCl (Zofran) 4 mg PRN Q8HRS PRN 10/25/18 20:15 10/26/18 20:14 DC Paroxetine HCl (Paxil) 10 mg DAILY 10/26/18 12:00 11/01/18 08:27 10 MG Piperacillin Sod/ Tazobactam Sod (Zosyn Per Pharmacy) 1 each PRN DAILY PRN 10/26/18 07:15 Piperacillin Sod/ Tazobactam Sod 3.375 gm/Sodium Chloride 50 ml @ 100 mls/hr Q6HRS 10/26/18 08:00 11/01/18 06:01 100 MLS/HR Scopolamine (Transderm-Scop) 1 patch Q3DAYS 10/27/18 09:00 10/30/18 08:41 1 PATCH Sodium Monofluorophosphate (Fleet Adult) 133 ml DAILY PRN 10/26/18 11:15 Sodium Chloride 1,000 ml @ 126 mls/hr Q7H57M 10/25/18 20:07 10/26/18 07:12 DC Vancomycin HCl (Vanco Per Pharmacy) 1 each PRN DAILY PRN 10/26/18 07:15 10/31/18 17:49 1 EACH Vancomycin HCl (Vancomycin Trough Level) 1 each 1X ONCE 11/02/18 07:30 11/02/18 07:31 Vancomycin HCl 1.25 gm/Sodium Chloride 250 ml @ 167 mls/hr Q12H 10/28/18 22:00 10/29/18 22:05 DC 10/29/18 08:52 167 MLS/HR Vancomycin HCl 1.75 gm/Sodium Chloride 500 ml @ 250 mls/hr 1X ONCE 10/26/18 08:00 10/26/18 09:59 DC 10/26/18 09:25 250 MLS/HR Vancomycin HCl 750 mg/Sodium Chloride 250 ml @ 250 mls/hr Q12H 10/31/18 20:00 11/01/18 08:27 250 MLS/HR Vancomycin HCl 1 gm/Sodium Chloride 250 ml @ 250 mls/hr Q12H 10/30/18 05:00 10/31/18 17:34 DC 10/31/18 06:07 250 MLS/HR Labs: Lab Laboratory Tests Test 10/31/18 16:20 11/01/18 06:30 Vancomycin Level Trough 23.9 mcg/mL (10.0-20.0) Vancomycin Last Dose Date 10/31/18 Vancomycin Last Dose Time 0607 Creatinine 0.5 mg/dL (0.6-1.0) Estimated GFR (Cockcroft-Gault) 123.1 Micro RUN DATE: 10/28/18 PAGE 1 RUN TIME: 1711 [facility] [address] [place] [address] Judson Roy M.D., Commissions Specialist PATIENT: MINNIE BENZ ACCT: [id number] LOC: 1 [facility] U : [id number] AGE/SX: 68/F ROOM: 112 REG : 10/25/[address]: RIGOBERTO VORA III, DO : 1950 BED: 1 DIS : STATUS: ADM IN TLOC: SPEC #: [id number] ALVARO: 10/25/18 STATUS: COMP REQ #: [id number] RECD: 10/25/[address]: COLBY IVERSON MD SOURCE: STRA CATH ENTR: 10/25/[address] [facility] [address]: JESSICA PAINTING MD SPDC: STR CATH ORDERED: URINE CULTURE Procedure Result URINE CULTURE Final Final report URINE CULTURE RES 1 Final Comment Pseudomonas aeruginosa Greater than 100,000 colony forming units per mL URINE CULTURE RES 2 Final Enterococcus faecalis 25,000-50,000 colony forming units per mL ANTIMICROBIAL SUSCEPTIBILITY Final Comment S = Susceptible; I = Intermediate; R = Resistant P = Positive; N = Negative MICS are expressed in micrograms per mL Antibiotic RSLT#1 RSLT#2 RSLT#3 RSLT#4 Amikacin S =16 Cefepime I =16 Ceftazidime S =4 Ciprofloxacin R>=4 R>=8 Gentamicin I =8 Imipenem S =4 Levofloxacin R>=8 R>=8 Meropenem S =1 Nitrofurantoin S<=16 Penicillin R =16 Piperacillin S =32 Tetracycline R>=16 Ticarcillin R>=128 Tobramycin S<=1 Vancomycin S =1 Performed at: [facility] [address], [place], [place] [id number] [employer] Utility Worker: RELL Marques MD, Phone: [phone] RUN DATE: 10/30/18 PAGE 1 RUN TIME: 1510 [facility] [address] [place] [address] Judson Roy M.D., Commissions Specialist PATIENT: MINNIE BENZ ACCT: [id number] LOC: 1 [facility] ICU U : [id number] AGE/SX: 68/F ROOM: 112 REG : 10/25/[address]: RIGOBERTO VORA III, DO : 1950 BED: 1 DIS : STATUS: ADM IN TLOC: SPEC #: [id number] ALVARO: 10/27/18 STATUS: RES REQ #: [id number] RECD: 10/27/[address]: DARWIN PITTS MD SOURCE: [facility] SITE ENTR: 10/27/[address] [facility] [address]: ANIKET LUNA MD SPDESC: RIGOBERTO VORA III, AMAN U MD KURTZ,BEVERLY BRAVO MD, MD ORDERED: NGA/JOHNY/JEANINE Procedure Result ANAEROBIC-AEROBIC CULTURE PENDING ANAEROBIC RES 1 PENDING AEROBIC CULT Final Final report AEROBIC RES 1 Final Comment Pseudomonas aeruginosa 1+ ANTIMICROBIAL SUSCEPTIBILITY Final Comment S = Susceptible; I = Intermediate; R = Resistant P = Positive; N = Negative MICS are expressed in micrograms per mL Antibiotic RSLT#1 RSLT#2 RSLT#3 RSLT#4 Amikacin S<=2 Cefepime R>=64 Ceftazidime R>=64 Ciprofloxacin R>=4 Gentamicin S<=1 Imipenem I =8 Levofloxacin R>=8 Meropenem S =4 Piperacillin R>=128 Ticarcillin R>=128 Tobramycin S<=1 CONTINUED ON NEXT PAGE RUN DATE: 10/30/18 PAGE 2 RUN TIME: 1510 [facility] [address] [place] [address] Judson Roy M.D., Commissions Specialist SPEC: [id number] PATIENT: MINNIE BENZ [id number] ( Continued) Procedure Result GRAM STAIN Final Final report GRAM STAIN RES 1 Final No organisms seen GRAM STAIN RES 2 Final Comment No white blood cells seen. Performed at: - [facility] [address] [facility] [address], [place], [place] [id number] [employer] Worker: RELL Marques MD, Phone: [phone] Objective: Assessment: Fever, better Lactic acidosis and sepsis. Suspected aspiration BC + 1/2 G + cocci - MRSE 10/25. Likely contaminant UTI w/ PSA and Enterococcus (PCN- R). SPC last changed 10/25 Trach site infection with growth of PSA, 10/25 Pleural effusions s/p bilat thoracentesis on 10/28. cultures neg to date Hypercapnic respiratory failure. Advanced multiple scleroses. h/o seizures on Keppra h/o MRSA, VRE, c. 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
--- NOTE | 2018-11-01 09:19 | PDOC ---
SUBJECTIVE Subjective Pt resting comfortably, sleeping. OBJECTIVE Objective Physical Exam: General appearance: Sleeping, appears comfortable. Head: Normocephalic, without obvious abnormality Eyes: conjunctivae/corneas clear. PERRL, EOM's intact. Fundi benign Lungs: Regular respirations with trach/machine assistance. Abdomen: soft, non-tender.+ Sp tubing with Smalls catheter in place. Dressing over SP site that is CDI, marked changed by nursing as 11/01/18. Vital Signs Vital Signs Date Time Temp Pulse Resp B/P (MAP) Pulse Ox O2 Delivery O2 Flow Rate FiO2 11/01/18 08:27 80 132/68 11/01/18 08:26 80 132/68 11/01/18 08:04 80 14 132/68 (89) 94 avap 11/01/18 07:47 95 BiPAP/CPAP 11/01/18 07:30 10.0 11/01/18 07:27 Bi-pap 11/01/18 07:00 80 14 125/61 (82) 94 avap 11/01/18 06:00 76 13 114/58 (76) 95 BiPAP/CPAP 11/01/18 05:51 95 BiPAP/CPAP 11/01/18 05:00 70 13 94/56 (69) 94 BiPAP/CPAP 11/01/18 04:00 99.1 75 14 116/69 (85) 95 BiPAP/CPAP 99.1 11/01/18 04:00 Bi-pap 11/01/18 03:00 75 14 93/56 (68) 95 BiPAP/CPAP 11/01/18 03:00 95 BiPAP/CPAP 11/01/18 02:00 72 14 85/52 (63) 94 BiPAP/CPAP 11/01/18 01:00 72 13 112/58 (76) 93 BiPAP/CPAP 11/01/18 00:00 99.0 79 19 98/56 (70) 95 BiPAP/CPAP 99.0 11/01/18 00:00 Bi-pap 11/01/18 00:00 95 BiPAP/CPAP 10/31/18 23:00 77 14 120/63 (82) 95 BiPAP/CPAP 10/31/18 22:00 74 13 103/62 (76) 92 BiPAP/CPAP 10/31/18 21:06 80 107/60 10/31/18 21:05 80 107/60 4/14/19 21:00 79 14 107/60 (76) 94 BiPAP/CPAP 10/31/18 20:06 96 BiPAP/CPAP 10/31/18 20:04 96 BiPAP/CPAP 10/31/18 20:00 98.7 80 14 115/62 (79) 98 BiPAP/CPAP 98.7 10/31/18 20:00 Bi-pap 10/31/18 19:00 77 12 106/50 (68) 93 BiPAP/CPAP 10/31/18 18:24 93 BiPAP/CPAP 10/31/18 18:00 77 14 129/61 (83) 93 BiPAP/CPAP 10/31/18 17:00 84 19 131/69 (89) 89 BiPAP/CPAP 10/31/18 16:21 86 146/76 10/31/18 16:00 Bi-pap 10/31/18 16:00 98.8 86 16 146/76 (99) 93 BiPAP/CPAP 98.8 10/31/18 15:59 95 BiPAP/CPAP 10/31/18 15:00 76 13 107/59 (75) 93 BiPAP/CPAP 10/31/18 14:00 72 13 115/61 (79) 93 BiPAP/CPAP 10/31/18 13:00 74 14 123/72 (89) 94 BiPAP/CPAP 10/31/18 12:57 95 BiPAP/CPAP 10/31/18 12:00 Bi-pap 10/31/18 12:00 97.7 68 13 110/64 (79) 96 BiPAP/CPAP 97.7 10/31/18 11:00 69 13 108/63 (78) 96 BiPAP/CPAP 10/31/18 10:13 93 BiPAP/CPAP 10/31/18 10:00 68 14 115/67 (83) 93 BiPAP/CPAP I & O Intake and Output 11/01/18 07:00 Intake Total 1586 ml Output Total 350 ml Balance 1236 ml Intake Oral 0 ml IV Total 350 ml Tube Feeding 835 ml Other 401 ml Output Urine Total 350 ml Gastric Drainage Total 0 ml # Bowel Movements 1 PHYSICAL EXAM Physical Exam Physical Exam: General appearance: Sleeping, appears comfortable. Head: Normocephalic, without obvious abnormality Eyes: conjunctivae/corneas clear. PERRL, EOM's intact. Fundi benign Lungs: Regular respirations with trach/machine assistance. Abdomen: soft, non-tender.+ Sp tubing with Smalls catheter in place. Dressing over SP site that is CDI, marked changed by nursing as 11/01/18. ASSESSMENT/PLAN Assessment/Plan SP tubing is due 11/15/18 per q 3 week schedule since it was last changed on . If she continues to develop infections, consider q 2 week sp tubing changes. Nursing to continue local hygiene and maintenance of SP site. A follow up appointment has been arranged for her with Dr. Birmingham of [facility] at [facility] on 11/19/18 at 1120 am. Appointment card given to patient this past Thursday. Will follow peripherally while in house. COMMENT Lab Laboratory Tests Test 10/31/18 16:20 11/01/18 06:30 Vancomycin Level Trough 23.9 mcg/mL (10.0-20.0) Vancomycin Last Dose Date 10/31/18 Vancomycin Last Dose Time 0607 Creatinine 0.5 mg/dL (0.6-1.0) Estimated GFR (Cockcroft-Gault) 123.1 FREDY LATIF APRN Nov 01, 2018 09:19
[2018-11-01] MEDS ORDERED: ATORVASTATIN CA80 MG PO (10:54)
[2018-11-01] MEDS: MEROPENEM 500 MG in IV NORMAL SALINE 50ML 50 ML IV SCH ×2 (11:14→17:09)
--- NOTE | 2018-11-01 14:00 | NUR ---
pt perineal / rectal area cleansed after pt was given a fleets enema via the cecum port in the luq. rectal stool liquid brown moderate amount. 400 cc of thin liquid, brown in color removed from colostomy bag surrounding cecum port. colostomy site dressing changed along with the bag. cecum port catheter intact. skin at the 7-8 oclock site with sluffing noted. pt , cade , states that "that has been there for years. that is why they use the colostomy/stoma bag with a small piece of aquacel pad and half a barrier piece placed on site with each change." aquacel pad and barrier piece applied and new colostomy bag applied to skin around cecum catheter port as instructed by sox analyst/.
--- NOTE | 2018-11-01 14:01 | PDOC ---
PULMONARY PROGRESS NOTES Subjective ON AVAPS, tolerating well. no sob, small trach secretion, on tm during day 40% fio2 Vitals Vital Signs Date Time Temp Pulse Resp B/P (MAP) Pulse Ox O2 Delivery O2 Flow Rate FiO2 11/01/18 13:00 92 16 154/76 (102) 96 Tracheal Collar 11/01/18 12:00 98.6 98.6 11/01/18 11:35 10.0 Comments as mentioned as above other sys otherwise neg ROS: No Nausea, No Chest Pain General: Alert, No acute distress HEENT: Other (nc at perrl nose throat clear, neck, trach site ok no lad, no thyromegaly) Lungs: Other (a few end exp wheezing) Cardiovascular: S1, S2 Abdomen: Soft, Non-tender, Other (no mass) Neuro Exam: Alert Extremities: Other (edema) Skin: Warm Labs Laboratory Tests Test 10/31/18 06:10 10/31/18 16:20 11/01/18 06:30 White Blood Count 6.7 x10^3/uL (4.0-11.0) Red Blood Count 3.61 x10^6/uL (3.50-5.40) Hemoglobin 10.9 g/dL (12.0-15.5) Hematocrit 34.1 % (36.0-47.0) Mean Corpuscular Volume 95 fL (79-100) Mean Corpuscular Hemoglobin 30 pg (25-35) Mean Corpuscular Hemoglobin Concent 32 g/dL (31-37) Red Cell Distribution Width 16.0 % (11.5-14.5) Platelet Count 229 x10^3/uL (140-400) Neutrophils (%) (Auto) 83 % (31-73) Lymphocytes (%) (Auto) 6 % (24-48) Monocytes (%) (Auto) 8 % (0-9) Eosinophils (%) (Auto) 3 % (0-3) Basophils (%) (Auto) 0 % (0-3) Neutrophils # (Auto) 5.5 x10^3uL (1.8-7.7) Lymphocytes # (Auto) 0.4 x10^3/uL (1.0-4.8) Monocytes # (Auto) 0.5 x10^3/uL (0.0-1.1) Eosinophils # (Auto) 0.2 x10^3/uL (0.0-0.7) Basophils # (Auto) 0.0 x10^3/uL (0.0-0.2) Sodium Level 146 mmol/L (136-145) Potassium Level 3.7 mmol/L (3.5-5.1) Chloride Level 105 mmol/L (98-107) Carbon Dioxide Level 34 mmol/L (21-32) Anion Gap 7 (6-14) Blood Urea Nitrogen 21 mg/dL (7-20) Creatinine 0.4 mg/dL (0.6-1.0) 0.5 mg/dL (0.6-1.0) Estimated GFR (Cockcroft-Gault) 159.2 123.1 BUN/Creatinine Ratio 53 (6-20) Glucose Level 132 mg/dL (70-99) Calcium Level 8.9 mg/dL (8.5-10.1) Total Bilirubin 0.3 mg/dL (0.2-1.0) Aspartate Amino Transf (AST/SGOT) 31 U/L (15-37) Alanine Aminotransferase (ALT/SGPT) 42 U/L (14-59) Alkaline Phosphatase 70 U/L (46-116) Total Protein 6.5 g/dL (6.4-8.2) Albumin 2.0 g/dL (3.4-5.0) Albumin/Globulin Ratio 0.4 (1.0-1.7) Vancomycin Level Trough 23.9 mcg/mL (10.0-20.0) Vancomycin Last Dose Date 10/31/18 Vancomycin Last Dose Time 0607 Laboratory Tests Test 10/31/18 16:20 11/01/18 06:30 Vancomycin Level Trough 23.9 mcg/mL (10.0-20.0) Vancomycin Last Dose Date 10/31/18 Vancomycin Last Dose Time 0607 Creatinine 0.5 mg/dL (0.6-1.0) Estimated GFR (Cockcroft-Gault) 123.1 Medications Active Scripts Medications Dose Route/Sig Max Daily Dose Days Date Category Dose Instructions Cardizem Tablet (Diltiazem Hcl) 30 Mg Tablet 30 Mg PO HS PRN 10/26/18 Reported Enema Ready To Use (Na Phos,M-B/Na Phos,Di-Ba) 133 Ml Enema 133 Ml RC 01/30/17 Reported Acetaminophen 500 Mg Tablet 1 Tab PO Q6HRS 01/30/17 Reported Probiotic Plus & Cranberry Cap (Cran/C/B.coag/Fos/L.acid/L.rha) 1 Each Capsule 1 Each PO BID 01/30/17 Reported Azithromycin Tablet (Azithromycin) 250 Mg Tablet 250 Mg PO DAILY 01/30/17 Reported Estradiol Transdermal Patch (Estradiol) 1 Each Patch.tdwk 1 Each TD BID WEEKLY 01/30/17 Reported Next dose 06/30/17 Karishma (Norethindrone) 0.35 Mg Tablet 0.35 Mg PO DAILY 01/30/17 Reported Keppra (Levetiracetam) 500 Mg Tablet 750 Mg PO BID 01/30/17 Reported Cardizem Tablet (Diltiazem Hcl) 60 Mg Tablet 60 Mg PO DAILY16 06/12/15 Reported Metoprolol Tartrate 25 Mg Tablet 1 Tab PO BID 12/28/14 Reported Xopenex (Levalbuterol Hcl) 0.63 Mg/3 Ml Vial.neb 1 Vial NEB TID 12/27/14 Reported Valium (Diazepam) 2 Mg Tablet 2 Mg PO TID 10/11/13 Reported Transderm-Scop (Scopolamine) 1 Each Patch.td72 1 Each TD Q3DAYS 07/28/13 Reported Indication: secretions Next dose: 06/30/17 am Nystop (Nystatin) 60 Gm Powder 60 Gm TP PRN 07/28/13 Reported Indication: rash NExt dose: as needed Levalbuterol Hcl 0.63 Mg/3 Ml Vial.neb 0.63 Mg IH TID 07/28/13 Reported Spiriva (Tiotropium Belmar) 18 Mcg Cap.w.dev 18 Mcg IH DAILY 07/28/13 Reported Diltiazem Hcl Tablet (Diltiazem Hcl) 60 Mg Tablet 60 Mg PO DAILY07 07/28/13 Reported Provigil (Modafinil) 200 Mg Tablet 200 Mg PO DAILY 07/28/13 Reported Paxil (Paroxetine Hcl) 10 Mg/5 Ml Oral.susp 10 Mg PO DAILY 07/28/13 Reported Baclofen 10 Mg Tablet 10 Mg PO TID 07/28/13 Reported Comments cxr reviewed, 11/01 bilateral effusions, no change Impression . 1. Acute on chronic hypercapnic and hypoxic respiratory failure secondary to multifactorial etiologies including sepsis , effusions 2. The patient with severe/advanced multiple sclerosis with chronic respiratory failure. 3. The patient with prior thoracentesis and prior multiple bronchoscopies. now with increasing bilateral effusions 4. Fever resolved 5. BC + 1/2 G + cocci - MRSE 10/25. 6. UTI w/ PSA and Enterococcus (PCN- R). SPC last changed 10/25 7. Trach site infection with growth of PSA, 10/25 Plan . 1. Continue with present AVAPS continuously at night. abg reviewed, TRY T- SHIELD DURING DAY 2. Continue broad-spectrum antibiotics. 3. am abg, pcxr 4. s/p thoracentesis. transudate, cxs neg, fu pf studies 5. elevate hob 6. Would also recommend discussion of goals of care and code statu 7. enteral nutrition 8. Consider nocturnal Triligy at home 9. BD, discussed w rn, rt/ ANA HOLLIDAY MD Nov 01, 2018 14:01
--- NOTE | 2018-11-01 16:04 | NUR ---
SS following up with discharge planning. SS discussed pt with Dr. Fabian and Dr. Laird. Both agreed that pt would benefit from LTAC stay at [facility]. Dr. Laird reported that pt will need trilogy machine. SS phoned and faxed referral to [facility], ; fax [phone]. [facility] reported that pt did meet medical criteria and was accepted. SS contacted pt's spouse, Maximino, to discuss. Maximino reported that he wanted to discuss further with Dr. Laird and Dr. Fabian and at this time was unwilling to transfer to [facility] and wanted to take pt home. Dr. Fabian notified and reported that he will discuss with spouse tomorrow. SS will continue to follow for discharge planning.
[2018-11-01] MEDS: ATORVASTATIN CALCIUM 40 MG TABLET. PO SCH (21:03)
[2018-11-02] VITALS (26 sets, daily range): BP systolic 86–170; BP diastolic 47–90
[2018-11-02] MEDS: MEROPENEM 500 MG in IV NORMAL SALINE 50ML 50 ML IV SCH ×5 (06:43→17:27)
--- NOTE | 2018-11-02 08:00 | RAD ---
REHANA, 11/02/2018: HISTORY: Constipation A spinal stimulator lead or infusion catheter is in place extending into the spinal canal near the thoracolumbar junction level. A tube overlying the left upper quadrant is presumably a gastrostomy tube. An additional tube overlies the left midabdomen. A tube overlying the lower pelvis is presumably a bladder catheter. The abdominal gas pattern is unremarkable. The liver is at the upper limits of normal in size. Radiopacities overlying the left renal region suggesting the presence of intrarenal calculi. Surgical clips are projected over the right midabdomen. IMPRESSION: 1. Multiple tubes and catheters are in place as described above. 2. Probable left renal calculi. 3. No acute abdominal abnormality is detected. Electronically signed by: Fabrizio Boyle MD (11/02/2018 7:58 AM) [facility]
--- NOTE | 2018-11-02 08:02 | PDOC ---
Infectious Disease Note Subjective: Subjective No fevers D/W RN Vital Signs: Vital Signs Vital Signs Date Time Temp Pulse Resp B/P (MAP) Pulse Ox O2 Delivery O2 Flow Rate FiO2 11/02/18 07:55 10.0 11/02/18 07:45 Mechanical Ventilator 11/02/18 07:00 98.7 91 14 154/78 (103) 98 98.7 Physical Exam: PHYSICAL EXAM GENERAL: Appears comfortable HEENT: JOHN, Oral cavity clear NECK: Tracheostomy in place. LUNGS: Bilateral decreased breath sounds. HEART: S1 and S2 regular. No gallop or murmur. ABDOMEN: Obese, distended, soft and nontender. PEG tube and SPC in place EXTREMITIES: Generalized edema. No cyanosis NEUROLOGICAL: Sleeping, quadriplegia SKIN: No rash RUE-PICC clean Medications: Inpatient Meds: Current Medications Medications (Trade) Dose Ordered Sig/Lidia Start Time Stop Time Status Last Admin Dose Admin Acetaminophen (Tylenol) 500 mg PRN Q6HRS PRN 10/26/18 11:30 Albuterol Sulfate (Ventolin Neb Soln) 2.5 mg PRN TID PRN 10/26/18 11:30 Albuterol/ Ipratropium (Duoneb) 3 ml RTQID 10/26/18 12:00 11/01/18 19:46 3 ML Aspirin (Children'S Aspirin) 81 mg DAILYWBKFT 10/26/18 14:30 11/01/18 08:27 81 MG Atorvastatin Calcium (Lipitor) 80 mg QHS 11/01/18 21:00 11/01/18 21:03 80 MG Azithromycin (Zithromax) 250 mg DAILY 10/27/18 09:00 UNV Baclofen (Lioresal) 10 mg TID 10/26/18 14:00 11/01/18 21:02 10 MG Budesonide (Pulmicort) 0.5 mg RTBID 10/30/18 08:00 11/01/18 19:46 0.5 MG Ceftriaxone Sodium (Rocephin) 1 gm 1X ONCE 10/25/18 19:00 10/25/18 19:02 DC 10/25/18 20:24 1 GM Diazepam (Valium) 2 mg TID 10/26/18 14:00 11/01/18 21:01 2 MG Diltiazem HCl (Cardizem) 60 mg DAILY07 10/27/18 07:00 11/01/18 08:26 60 MG Docusate Sodium (Enemeez) 283 mg PRN DAILY PRN 10/30/18 10:30 Estradiol (Climara Weekly) 1 mg WEEKLY 11/02/18 09:00 Levetiracetam (Keppra) 750 mg BID 10/26/18 12:00 11/01/18 21:02 750 MG Meropenem 500 mg/ Sodium Chloride 50 ml @ 100 mls/hr Q6HRS 11/01/18 12:00 11/02/18 06:43 100 MLS/HR Methylprednisolone Sodium Succinate (SOLU-Medrol 125MG VIAL) 125 mg 1X ONCE 10/25/18 17:30 10/25/18 17:31 DC 10/25/18 19:04 125 MG Metoprolol Tartrate (Lopressor) 25 mg BID 10/26/18 12:00 11/01/18 21:02 25 MG Non-Formulary Medication 1 ea PRN TID PRN 10/27/18 11:00 11/01/18 08:33 1 EA Non-Formulary Medication (Cran/C/B.coag/ Fos/L.acid/L.rha (Probiotic Plus & Cranberry Cap)) 1 each BID 10/26/18 21:00 UNV Non-Formulary Medication (Levalbuterol Hcl (Xopenex)) 1 vial TID 10/26/18 14:00 UNV Non-Formulary Medication (Levalbuterol Hcl ) 0.63 mg TID 10/26/18 14:00 UNV Non-Formulary Medication (Modafinil (Provigil)) 200 mg DAILY 10/27/18 11:30 11/01/18 11:13 200 MG Non-Formulary Medication (Norethindrone (Karishma)) 0.35 mg DAILY 10/27/18 09:00 UNV Non-Formulary Medication (Tiotropium Lamont (Spiriva)) 18 mcg DAILY 10/27/18 09:00 UNV Nystatin (Nystop) 1 parag PRN BID PRN 10/26/18 11:15 10/27/18 10:35 DC Ondansetron HCl (Zofran) 4 mg PRN Q8HRS PRN 10/25/18 20:15 10/26/18 20:14 DC Paroxetine HCl (Paxil) 10 mg DAILY 10/26/18 12:00 11/01/18 08:27 10 MG Piperacillin Sod/ Tazobactam Sod (Zosyn Per Pharmacy) 1 each PRN DAILY PRN 10/26/18 07:15 Cancel Piperacillin Sod/ Tazobactam Sod 3.375 gm/Sodium Chloride 50 ml @ 100 mls/hr Q6HRS 10/26/18 08:00 11/01/18 09:30 DC 11/01/18 06:01 100 MLS/HR Scopolamine (Transderm-Scop) 1 patch Q3DAYS 10/27/18 09:00 10/30/18 08:41 1 PATCH Sodium Monofluorophosphate (Fleet Adult) 133 ml DAILY PRN 10/26/18 11:15 11/01/18 12:29 133 ML Sodium Chloride 1,000 ml @ 126 mls/hr Q7H57M 10/25/18 20:07 10/26/18 07:12 DC Vancomycin HCl (Vanco Per Pharmacy) 1 each PRN DAILY PRN 10/26/18 07:15 11/01/18 09:17 DC 10/31/18 17:49 1 EACH Vancomycin HCl (Vancomycin Trough Level) 1 each 1X ONCE 11/02/18 07:30 11/02/18 07:30 DC Vancomycin HCl 1.25 gm/Sodium Chloride 250 ml @ 167 mls/hr Q12H 10/28/18 22:00 10/29/18 22:05 DC 10/29/18 08:52 167 MLS/HR Vancomycin HCl 1.75 gm/Sodium Chloride 500 ml @ 250 mls/hr 1X ONCE 10/26/18 08:00 10/26/18 09:59 DC 10/26/18 09:25 250 MLS/HR Vancomycin HCl 750 mg/Sodium Chloride 250 ml @ 250 mls/hr Q12H 10/31/18 20:00 11/01/18 09:14 DC 11/01/18 08:27 250 MLS/HR Vancomycin HCl 1 gm/Sodium Chloride 250 ml @ 250 mls/hr Q12H 10/30/18 05:00 10/31/18 17:34 DC 10/31/18 06:07 250 MLS/HR Labs: Micro RUN DATE: 10/28/18 PAGE 1 RUN TIME: 5081 [facility] [address] [place] [address] Judson Roy M.D., Literacy Coach PATIENT: MINNIE BENZ ACCT: [id number] LOC: 1 [facility] U : [id number] AGE/SX: 68/F ROOM: [facility] REG : 10/25/[address]: RIGOBERTO VORA III DO : 1950 BED: 1 DIS : STATUS: ADM IN TLOC: SPEC #: [id number] ALVARO: 10/25/18 STATUS: COMP REQ #: [id number] RECD: 10/25/[address] [facility] [address]: COLBY IVERSON MD SOURCE: STRA CATH ENTR: 10/25/18 [facility] [address]: JESSICA PAINTING MD SPDC: STR CATH ORDERED: URINE CULTURE Procedure Result URINE CULTURE Final Final report URINE CULTURE RES 1 Final Comment Pseudomonas aeruginosa Greater than 100,000 colony forming units per mL URINE CULTURE RES 2 Final Enterococcus faecalis 25,000-50,000 colony forming units per mL ANTIMICROBIAL SUSCEPTIBILITY Final Comment S = Susceptible; I = Intermediate; R = Resistant P = Positive; N = Negative MICS are expressed in micrograms per mL Antibiotic RSLT#1 RSLT#2 RSLT#3 RSLT#4 Amikacin S =16 Cefepime I =16 Ceftazidime S =4 Ciprofloxacin R>=4 R>=8 Gentamicin I =8 Imipenem S =4 Levofloxacin R>=8 R>=8 Meropenem S =1 Nitrofurantoin S<=16 Penicillin R =16 Piperacillin S =32 Tetracycline R>=16 Ticarcillin R>=128 Tobramycin S<=1 Vancomycin S =1 Performed at: [facility], [place], [place] [id number] Risk Management Director: RELL Marques MD, Phone: [phone] RUN DATE: 10/30/18 PAGE 1 RUN TIME: 1510 [facility] [address] [place] [address] Judson Roy M.D., Literacy Coach PATIENT: MINNIE BENZ ACCT: [id number] LOC: 1 [facility] U : [id number] AGE/SX: 68/F ROOM: [facility] REG : 10/25/[address]: RIGOBERTO VORA III, DO : 1950 BED: 1 DIS : STATUS: ADM IN TLOC: SPEC #: [id number] ALVARO: 10/27/18 STATUS: RES REQ #: [id number] RECD: 10/27/[address]: DARWIN PITTS MD SOURCE: [facility] SITE ENTR: 10/27/[address] [facility] [address]: ANIKET LUNA MD SPDC: RIGOBERTO VORA III, AMAN U MD KURTZ,BEVERLY BRAVO MD, MD ORDERED: NGA/JOHNY/JEANINE Procedure Result ANAEROBIC-AEROBIC CULTURE PENDING ANAEROBIC RES 1 PENDING AEROBIC CULT Final Final report AEROBIC RES 1 Final Comment Pseudomonas aeruginosa 1+ ANTIMICROBIAL SUSCEPTIBILITY Final Comment S = Susceptible; I = Intermediate; R = Resistant P = Positive; N = Negative MICS are expressed in micrograms per mL Antibiotic RSLT#1 RSLT#2 RSLT#3 RSLT#4 Amikacin S<=2 Cefepime R>=64 Ceftazidime R>=64 Ciprofloxacin R>=4 Gentamicin S<=1 Imipenem I =8 Levofloxacin R>=8 Meropenem S =4 Piperacillin R>=128 Ticarcillin R>=128 Tobramycin S<=1 CONTINUED ON NEXT PAGE RUN DATE: 10/30/18 PAGE 2 RUN TIME: 1510 [facility] [address] [place] [address] Judson Roy M.D., Literacy Coach SPEC: [id number] PATIENT: MINNIE BENZ [id number] ( Continued) Procedure Result GRAM STAIN Final Final report GRAM STAIN RES 1 Final No organisms seen GRAM STAIN RES 2 Final Comment No white blood cells seen. Performed at: - [facility] [address] [facility] [address], [place], [place] [id number] Risk Management Director: RELL Marques MD, Phone: [phone] Objective: Assessment: Fever, pattern improved Lactic acidosis and sepsis. Suspected aspiration BC + 1/2 G + cocci - MRSE 10/25. Likely contaminant UTI w/ PSA and Enterococcus (PCN- R). SPC last changed 10/25 Trach site infection with growth of PSA, 10/25 Pleural effusions s/p bilat thoracentesis on 10/28. cultures neg to date Hypercapnic respiratory failure. Advanced multiple scleroses. h/o seizures on Keppra h/o MRSA, VRE, c. 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
[2018-11-02] MEDS: IPRATRPIUM/ALBUTEROL 0.5/2.5MG 3 ML NEBU. NEB SCH ×4 (08:11→20:08)
[2018-11-02] MEDS: BUDESONIDE 0.5 MG/2 ML NEBU. NEB SCH ×2 (08:24→20:08)
[2018-11-02] MEDS: BACLOFEN 10 MG TABLET. PO SCH ×3 (08:26→21:07)
[2018-11-02] MEDS: PARoxetine 10 MG TABLET PO SCH (08:26)
[2018-11-02] MEDS: dilTIAZem HCL 30 MG TABLET PO SCH ×3 (08:26→21:00)
[2018-11-02] MEDS: SCOPOLAMINE 1.5MG PATCH. TD SCH (08:26)
[2018-11-02] MEDS: ASPIRIN CHEWABLE 81 MG TABLET. PO SCH (08:26)
[2018-11-02] MEDS: METOPROLOL TART IMMED RELEASE 25 MG TABLET. PO SCH ×2 (08:27→21:00)
[2018-11-02] MEDS: diazePAM 2 MG TABLET PO SCH ×3 (08:27→21:07)
[2018-11-02] MEDS: levETIRAcetam 250 MG TABLET PO SCH ×2 (08:39→21:07)
[2018-11-02] MEDS: ESTRADIOL WEEKLY 0.1 MG PATCH. TD SCH (08:40)
[2018-11-02] MEDS ORDERED: ESTRADIOL WEEKLY 0.1 MG PATCH. TD SCH (09:00)
--- NOTE | 2018-11-02 09:25 | NUR ---
IP: Pt has a (R) PSA of trach site. Based on resistance, pt needs contact precautions.
--- NOTE | 2018-11-02 10:51 | PDOC ---
PROGRESS NOTES Chief Complaint Chief Complaint Acute on chronic respiratory failure Bilateral pleural effusion Advanced multiple sclerosis tracheostomy history of seizures PEG tube baclofen pump colostomy Suprapubic catheter S.p thoracentesis > 1L History of Present Illness History of Present Illness discussed with , DC plan, will need new trach, concern about valve for speaking, though with her continued ventilatory requirements this is may need BIPAP at home, had been discussed, necessary to continue cont the IV abx Opening eyes more to verbal today. Mumbling. No complaints. KUB shows n oobstruction Plan: Pleural fluid without growth. Staph epidermidis blood culture positive, trach with pseudomonas, Urine with enterococcus and pseudomonas F/u ID recs Needs continuous ventilatory, BIPAP support such as trilogy on discharge Vitals Vitals Vital Signs Date Time Temp Pulse Resp B/P (MAP) Pulse Ox O2 Delivery O2 Flow Rate FiO2 11/02/18 09:00 95 20 170/90 (116) 94 Tracheal Collar 11/02/18 07:55 10.0 11/02/18 07:00 98.7 98.7 Physical Exam Physical Exam GENERAL: Appears comfortable HEENT: JOHN, Oral cavity clear NECK: Tracheostomy in place. LUNGS: Bilateral decreased breath sounds. HEART: S1 and S2 regular. No gallop or murmur. ABDOMEN: Obese, distended, soft and nontender. PEG tube and SPC in place EXTREMITIES: Generalized edema. No cyanosis NEUROLOGICAL: Sleeping, quadriplegia SKIN: No rash RUE-PICC clean General: Alert, Cooperative, No acute distress Heart: Regular rate (SR), Other (distnat heart sounds) Lungs: Other (a few end exp wheezing) Abdomen: Soft Extremities: No cyanosis, Other (generalized edema trace to 1+) Skin: Other (suprapubic cath, PEG tube in place, trach site intact) Assessment and Plan Assessmemt and Plan Problems Medical Problems: (1) Hypercapnic respiratory failure Status: Acute Comment Review of Relevant I have reviewed the following items lucila (where applicable) has been applied. Labs Laboratory Tests Test 10/31/18 16:20 11/01/18 06:30 Vancomycin Level Trough 23.9 mcg/mL (10.0-20.0) Vancomycin Last Dose Date 10/31/18 Vancomycin Last Dose Time 0607 Creatinine 0.5 mg/dL (0.6-1.0) Estimated GFR (Cockcroft-Gault) 123.1 Microbiology 10/26/18 Blood Culture - Final, Complete NO GROWTH AFTER 5 DAYS 10/27/18 Anaerobic/Aerobic Culture - Final, Complete 10/27/18 Anaerobic Culture Result 1 (NANDO) - Final, Complete 10/27/18 Aerobic Culture - Final, Complete 10/27/18 Aerobic Culture Result 1 (NANDO) - Final, Complete 10/27/18 Gram Stain - Final, Complete 10/27/18 Gram Stain Result 1 (NANDO) - Final, Complete 10/27/18 Gram Stain Result 2 (NANDO) - Final, Complete 10/25/18 Urine Culture - Final, Complete 10/25/18 Urine Culture Result 1 (NANDO) - Final, Complete 10/25/18 Urine Culture Result 2 (NANDO) - Final, Complete 10/25/18 Antimicrobic Susceptibility - Final, Complete 10/27/18 Anaerobic/Aerobic Culture - Final, Complete 10/27/18 Anaerobic Culture Result 1 (NANDO) - Final, Complete 10/27/18 Aerobic Culture - Final, Complete 10/27/18 Aerobic Culture Result 1 (NANDO) - Final, Complete 10/27/18 Antimicrobic Susceptibility - Final, Complete 10/27/18 Gram Stain - Final, Complete 10/27/18 Gram Stain Result 1 (NANDO) - Final, Complete 10/27/18 Gram Stain Result 2 (NANDO) - Final, Complete Medications Current Medications Sodium Chloride 1,000 ml @ 1,000 mls/hr Q1H IV Last administered on 10/25/18 19:04; Start 10/25/18 at 17:28; Stop 10/25/18 at 18:27; Status DC Albuterol/ Ipratropium (Duoneb) 3 ml 1X ONCE NEB Last administered on at 17:53; Start 10/25/18 at 17:30; Stop 10/25/18 at 17:31; Status DC Methylprednisolone Sodium Succinate (SOLU-Medrol 125MG VIAL) 125 mg 1X ONCE IV Last administered on 10/25/18at 19:04; Start 10/25/18 at 17:30; Stop 10/25/18 at 17:31; Status DC Ceftriaxone Sodium (Rocephin) 1 gm 1X ONCE IVP Last administered on 10/25/18at 20:24; Start 10/25/18 at 19:00; Stop 10/25/18 at 19:02; Status DC Ondansetron HCl (Zofran) 4 mg PRN Q8HRS PRN IV NAUSEA/VOMITING; Start 10/25/18 at 20:15; Stop 10/26/18 at 20:14; Status DC Sodium Chloride 1,000 ml @ 126 mls/hr Q7H57M IV ; Start 10/25/18 at 20:07; Stop 10/26/18 at 07:12; Status DC Acetaminophen (Tylenol) 650 mg 1X ONCE PEG Last administered on 10/26/18at 04:59 ; Start 10/26/18 at 04:30; Stop 10/26/18 at 04:32; Status DC Piperacillin Sod/ Tazobactam Sod (Zosyn Per Pharmacy) 1 each PRN DAILY PRN MC SEE COMMENTS; Start 10/26/18 at 07:15; Status Cancel Vancomycin HCl (Vanco Per Pharmacy) 1 each PRN DAILY PRN MC SEE COMMENTS Last administered on 10/31/18at 17:49; Start 10/26/18 at 07:15; Stop 11/01/18 at 09:17 ; Status DC Piperacillin Sod/ Tazobactam Sod 3.375 gm/Sodium Chloride 50 ml @ 100 mls/hr Q6HRS IV Last administered on 11/01/18at 06:01; Start 10/26/18 at 08:00; Stop at 09:30; Status DC Vancomycin HCl 1.75 gm/Sodium Chloride 500 ml @ 250 mls/hr 1X ONCE IV Last administered on 10/26/18at 09:25; Start 10/26/18 at 08:00; Stop 10/26/18 at 09:59; Status DC Azithromycin (Zithromax) 250 mg DAILY PO ; Start 10/27/18 at 09:00; Status UNV Baclofen (Lioresal) 10 mg TID PO Last administered on 11/02/18at 08:26; Start at 14:00 Diazepam (Valium) 2 mg TID PO Last administered on 11/02/18at 08:27; Start at 14:00 Diltiazem HCl (Cardizem) 30 mg QHS PO Last administered on 11/01/18at 21:01; Start 10/26/18 at 21:00 Estradiol (Climara Weekly) 1 mg WEEKLY TD ; Start 11/02/18 at 09:00; Stop at 09:00; Status DC Levetiracetam (Keppra) 750 mg BID PO Last administered on 11/02/18at 08:39; Start 10/26/18 at 12:00 Metoprolol Tartrate (Lopressor) 25 mg BID PO Last administered on 11/02/18at 08: 27; Start 10/26/18 at 12:00 Sodium Monofluorophosphate (Fleet Adult) 133 ml DAILY PRN RC constipation Last administered on 11/01/18at 12:29; Start 10/26/18 at 11:15 Nystatin (Nystop) 1 parag PRN BID PRN TP RASH; Start 10/26/18 at 11:15; Stop 10/27 at 10:35; Status DC Acetaminophen (Tylenol) 500 mg PRN Q6HRS PRN PO MILD PAIN / TEMP; Start at 11:30 Non-Formulary Medication (Cran/C/B.coag/ Fos/L.acid/L.rha (Probiotic Plus & Cranberry Cap)) 1 each BID PO ; Start 10/26/18 at 21:00; Status UNV Diltiazem HCl (Cardizem) 60 mg DAILY16 PO Last administered on 11/01/18at 15:20 ; Start 10/26/18 at 16:00 Diltiazem HCl (Cardizem) 60 mg DAILY07 PO Last administered on 11/02/18at 08:26 ; Start 10/27/18 at 07:00 Non-Formulary Medication (Levalbuterol Hcl ) 0.63 mg TID IH ; Start 10/26/18 at 14:00; Status UNV Non-Formulary Medication (Levalbuterol Hcl (Xopenex)) 1 vial TID NEB ; Start 10/26/18 at 14:00; Status UNV Non-Formulary Medication (Modafinil (Provigil)) 200 mg DAILY PO Last administered on 11/02/18at 08:27; Start 10/27/18 at 11:30 Non-Formulary Medication (Norethindrone (Karishma)) 0.35 mg DAILY PO ; Start 10/27 at 09:00; Status UNV Paroxetine HCl (Paxil) 10 mg DAILY PO Last administered on 11/02/18 08:26; Start 10/26/18 at 12:00 Scopolamine (Transderm-Scop) 1 patch Q3DAYS TD Last administered on 11/02/18 08:26; Start 10/27/18 at 09:00 Non-Formulary Medication (Tiotropium [place] (Spiriva)) 18 mcg DAILY IH ; Start 10/27/18 at 09:00; Status UNV Albuterol/ Ipratropium (Duoneb) 3 ml RTQID NEB Last administered on 11/02/18 08:11; Start 10/26/18 at 12:00 Albuterol Sulfate (Ventolin Neb Soln) 2.5 mg PRN TID PRN NEB SHORTNESS OF BREATH; Start 10/26/18 at 11:30 Vancomycin HCl 1 gm/Sodium Chloride 250 ml @ 250 mls/hr Q24H IV Last administered on 10/28/18 09:51; Start 10/27/18 at 09:30; Stop 10/28/18 at 12:00 ; Status DC Vancomycin HCl (Vancomycin Trough Level) 1 each 1X ONCE MC Last administered on 10/28/18 09:00; Start 10/28/18 at 09:00; Stop 10/28/18 at 09:01; Status DC Aspirin (Children'S Aspirin) 81 mg DAILYWBKFT PO Last administered on 08:26; Start 10/26/18 at 14:30 Non-Formulary Medication 1 ea PRN TID PRN PO APPLY TO AFFECTED AREA Last administered on 11/01/18 08:33; Start 10/27/18 at 11:00 Vancomycin HCl 1.25 gm/Sodium Chloride 250 ml @ 167 mls/hr Q12H IV Last administered on 10/29/18 08:52; Start 10/28/18 at 22:00; Stop 10/29/18 at 22:05 ; Status DC Vancomycin HCl (Vancomycin Trough Level) 1 each 1X ONCE MC Last administered on 10/29/18 21:30; Start 10/29/18 at 21:30; Stop 10/29/18 at 21:31; Status DC Vancomycin HCl 1 gm/Sodium Chloride 250 ml @ 250 mls/hr Q12H IV Last administered on 4/14/19at 06:07; Start 10/30/18 at 05:00; Stop 10/31/18 at 17:34 ; Status DC Vancomycin HCl (Vancomycin Trough Level) 1 each 1X ONCE MC Last administered on 10/31/18at 17:30; Start 10/31/18 at 17:30; Stop 10/31/18 at 17:34; Status DC Budesonide (Pulmicort) 0.5 mg RTBID NEB Last administered on 11/02/18at 08:24; Start 10/30/18 at 08:00 Docusate Sodium (Enemeez) 283 mg PRN DAILY PRN [facility] [employer]; Start 10/30/18 at 10:30 Vancomycin HCl 750 mg/Sodium Chloride 250 ml @ 250 mls/hr Q12H IV Last administered on 11/01/18at 08:27; Start 10/31/18 at 20:00; Stop 11/01/18 at 09:14 ; Status DC Vancomycin HCl (Vancomycin Trough Level) 1 each 1X ONCE MC ; Start 11/02/18 at 07:30; Stop 11/02/18 at 07:30; Status DC Meropenem 500 mg/ Sodium Chloride 50 ml @ 100 mls/hr Q6HRS IV Last administered on 11/02/18at 06:43; Start 11/01/18 at 12:00 Atorvastatin Calcium (Lipitor) 80 mg QHS PO Last administered on 11/01/18at 21: 03; Start 11/01/18 at 21:00 Estradiol (Climara Weekly) 0.1 mg WEEKLY TD Last administered on 11/02/18at 08: 40; Start 11/02/18 at 09:00 Enoxaparin Sodium (Lovenox 40mg Syringe) 40 mg Q24H SQ ; Start 11/02/18 at 11:00 Active Scripts Active Reported Atorvastatin Calcium 80 Mg Tablet 80 Mg PO HS Cardizem Tablet (Diltiazem Hcl) 30 Mg Tablet 30 Mg PO HS PRN Enema Ready To Use (Na Phos,M-B/Na Phos,Di-Ba) 133 Ml Enema 133 Ml RC Acetaminophen 500 Mg Tablet 1 Tab PO Q6HRS Probiotic Plus & Cranberry Cap (Cran/C/B.coag/Fos/L.acid/L.rha) 1 Each Capsule 1 Each PO BID Azithromycin Tablet (Azithromycin) 250 Mg Tablet 250 Mg PO DAILY Estradiol Transdermal Patch (Estradiol) 1 Each Patch.tdwk 1 Each TD BID WEEKLY Next dose 06/30/17 Karishma (Norethindrone) 0.35 Mg Tablet 0.35 Mg PO DAILY Keppra (Levetiracetam) 500 Mg Tablet 750 Mg PO BID Cardizem Tablet (Diltiazem Hcl) 60 Mg Tablet 60 Mg PO DAILY16 Metoprolol Tartrate 25 Mg Tablet 1 Tab PO BID Xopenex (Levalbuterol Hcl) 0.63 Mg/3 Ml Vial.neb 1 Vial NEB TID Valium (Diazepam) 2 Mg Tablet 2 Mg PO TID Transderm-Scop (Scopolamine) 1 Each Patch.td72 1 Each TD Q3DAYS Indication: secretions Next dose: 06/30/17 am Nystop (Nystatin) 60 Gm Powder 60 Gm TP PRN Indication: rash NExt dose: as needed Levalbuterol Hcl 0.63 Mg/3 Ml Vial.neb 0.63 Mg IH TID Spiriva (Tiotropium [place]) 18 Mcg Cap.w.dev 18 Mcg IH DAILY Diltiazem Hcl Tablet (Diltiazem Hcl) 60 Mg Tablet 60 Mg PO DAILY07 Provigil (Modafinil) 200 Mg Tablet 200 Mg PO DAILY Paxil (Paroxetine Hcl) 10 Mg/5 Ml Oral.susp 10 Mg PO DAILY Baclofen 10 Mg Tablet 10 Mg PO TID Vitals/I & O Vital Sign - Last 24 Hours 11/01/18 11/01/18 11/01/18 11/01/18 11:00 11:25 11:35 12:00 Pulse 73 Resp 14 B/P (MAP) 122/66 (84) Pulse Ox 96 96 96 O2 Delivery avap BiPAP/CPAP Tracheal Collar Trach Collar O2 Flow Rate 10.0 11/01/18 11/01/18 11/01/18 11/01/18 12:00 13:00 14:00 14:15 Temp 98.6 98.6 Pulse 73 92 90 Resp 14 16 28 B/P (MAP) 130/70 (90) 154/76 (102) 130/78 (95) Pulse Ox 96 96 90 O2 Delivery Tracheal Collar Tracheal Collar Tracheal Collar BiPAP/CPAP 11/01/18 11/01/18 11/01/18 11/01/18 15:00 15:20 16:00 16:00 Temp 98.6 98.6 Pulse 84 84 86 Resp 16 16 B/P (MAP) 118/60 (79) 118/60 112/64 (80) Pulse Ox 94 94 O2 Delivery avap Tracheal Collar Mechanical Ventilator 11/01/18 11/01/18 11/01/18 11/01/18 16:00 17:00 18:00 19:00 Pulse 84 70 76 Resp 15 15 17 B/P (MAP) 99/59 (72) 108/58 (75) 100/52 (68) Pulse Ox 96 96 96 95 O2 Delivery BiPAP/CPAP Tracheal Collar avap BiPAP/CPAP 11/01/18 11/01/18 11/01/18 11/01/18 19:46 20:00 20:00 21:00 Temp 98.8 98.8 Pulse 80 78 Resp 14 14 B/P (MAP) 117/58 (77) 113/54 (73) Pulse Ox 96 97 96 O2 Delivery BiPAP/CPAP Mechanical Ventilator BiPAP/CPAP BiPAP/CPAP 11/01/18 11/01/18 11/01/18 11/01/18 21:01 21:02 21:10 22:00 Pulse 80 80 88 Resp 18 B/P (MAP) 117/58 113/54 141/73 (95) Pulse Ox 96 97 O2 Delivery BiPAP/CPAP BiPAP/CPAP 11/01/18 11/02/18 11/02/18 11/02/18 23:00 00:00 00:00 00:15 Temp 98.9 98.9 Pulse 80 74 Resp 14 14 B/P (MAP) 119/55 (76) 117/76 (90) Pulse Ox 96 95 93 O2 Delivery BiPAP/CPAP Mechanical Ventilator BiPAP/CPAP BiPAP/CPAP 11/02/18 11/02/18 11/02/18 11/02/18 01:00 02:00 02:00 03:00 Pulse 80 85 86 Resp 19 16 16 B/P (MAP) 161/75 (103) 139/66 (90) 152/76 (101) Pulse Ox 97 96 93 97 O2 Delivery BiPAP/CPAP BiPAP/CPAP BiPAP/CPAP BiPAP/CPAP 11/02/18 11/02/18 11/02/18 11/02/18 04:00 04:00 05:00 05:15 Temp 99.1 99.1 Pulse 85 90 Resp 14 16 B/P (MAP) 152/67 (95) 147/62 (90) Pulse Ox 96 98 96 O2 Delivery BiPAP/CPAP Mechanical Ventilator BiPAP/CPAP BiPAP/CPAP 11/02/18 11/02/18 11/02/18 11/02/18 06:00 07:00 07:45 07:55 Temp 98.7 98.7 Pulse 91 91 Resp 15 14 B/P (MAP) 164/83 (110) 154/78 (103) Pulse Ox 98 98 O2 Delivery BiPAP/CPAP avap Mechanical Ventilator O2 Flow Rate 10.0 11/02/18 11/02/18 11/02/18 11/02/18 08:00 08:12 08:16 08:26 Pulse 95 95 Resp 14 B/P (MAP) 154/77 (102) 154/77 Pulse Ox 94 96 93 O2 Delivery avap BiPAP/CPAP Tracheal Collar 11/02/18 11/02/18 08:27 09:00 Pulse 95 95 Resp 20 B/P (MAP) 154/77 170/90 (116) Pulse Ox 94 O2 Delivery Tracheal Collar Intake and Output 11/01/18 11/01/18 11/02/18 15:00 23:00 07:00 Intake Total 930 ml 1308 ml 1150 ml Output Total 80 ml 1175 ml 650 ml Balance 850 ml 133 ml 500 ml FLAQUITO LIRA MD Nov 02, 2018 10:51
--- NOTE | 2018-11-02 10:53 | PDOC ---
PULMONARY PROGRESS NOTES Subjective got tired on TS yesterday after 2 hrs back on TS Vitals Vital Signs Date Time Temp Pulse Resp B/P (MAP) Pulse Ox O2 Delivery O2 Flow Rate FiO2 11/02/18 09:00 95 20 170/90 (116) 94 Tracheal Collar 11/02/18 07:55 10.0 11/02/18 07:00 98.7 98.7 Comments as mentioned as above other sys otherwise neg ROS: No Nausea, No Chest Pain General: Alert, No acute distress HEENT: Other (nc at perrl nose throat clear, neck, trach site ok no lad, no thyromegaly) Lungs: Other (decrease bs) Cardiovascular: S1, S2 Abdomen: Soft, Non-tender, Other (no mass) Neuro Exam: Alert Extremities: Other (edema) Skin: Warm Labs Laboratory Tests Test 10/31/18 16:20 11/01/18 06:30 Vancomycin Level Trough 23.9 mcg/mL (10.0-20.0) Vancomycin Last Dose Date 10/31/18 Vancomycin Last Dose Time 0607 Creatinine 0.5 mg/dL (0.6-1.0) Estimated GFR (Cockcroft-Gault) 123.1 Medications Active Scripts Medications Dose Route/Sig Max Daily Dose Days Date Category Dose Instructions Cardizem Tablet (Diltiazem Hcl) 30 Mg Tablet 30 Mg PO HS PRN 10/26/18 Reported Enema Ready To Use (Na Phos,M-B/Na Phos,Di-Ba) 133 Ml Enema 133 Ml RC 01/30/17 Reported Acetaminophen 500 Mg Tablet 1 Tab PO Q6HRS 01/30/17 Reported Probiotic Plus & Cranberry Cap (Cran/C/B.coag/Fos/L.acid/L.rha) 1 Each Capsule 1 Each PO BID 01/30/17 Reported Azithromycin Tablet (Azithromycin) 250 Mg Tablet 250 Mg PO DAILY 01/30/17 Reported Estradiol Transdermal Patch (Estradiol) 1 Each Patch.tdwk 1 Each TD BID WEEKLY 01/30/17 Reported Next dose 06/30/17 Karishma (Norethindrone) 0.35 Mg Tablet 0.35 Mg PO DAILY 01/30/17 Reported Keppra (Levetiracetam) 500 Mg Tablet 750 Mg PO BID 01/30/17 Reported Cardizem Tablet (Diltiazem Hcl) 60 Mg Tablet 60 Mg PO DAILY16 06/12/15 Reported Metoprolol Tartrate 25 Mg Tablet 1 Tab PO BID 12/28/14 Reported Xopenex (Levalbuterol Hcl) 0.63 Mg/3 Ml Vial.neb 1 Vial NEB TID 12/27/14 Reported Valium (Diazepam) 2 Mg Tablet 2 Mg PO TID 10/11/13 Reported Transderm-Scop (Scopolamine) 1 Each Patch.td72 1 Each TD Q3DAYS 07/28/13 Reported Indication: secretions Next dose: 06/30/17 am Nystop (Nystatin) 60 Gm Powder 60 Gm TP PRN 07/28/13 Reported Indication: rash NExt dose: as needed Levalbuterol Hcl 0.63 Mg/3 Ml Vial.neb 0.63 Mg IH TID 07/28/13 Reported Spiriva (Tiotropium [place]) 18 Mcg Cap.w.dev 18 Mcg IH DAILY 07/28/13 Reported Diltiazem Hcl Tablet (Diltiazem Hcl) 60 Mg Tablet 60 Mg PO DAILY07 07/28/13 Reported Provigil (Modafinil) 200 Mg Tablet 200 Mg PO DAILY 07/28/13 Reported Paxil (Paroxetine Hcl) 10 Mg/5 Ml Oral.susp 10 Mg PO DAILY 07/28/13 Reported Baclofen 10 Mg Tablet 10 Mg PO TID 07/28/13 Reported Comments cxr reviewed, 11/01 bilateral effusions, no change Impression . 1. Acute on chronic hypercapnic and hypoxic respiratory failure secondary to multifactorial etiologies including sepsis , effusions 2. The patient with severe/advanced multiple sclerosis with chronic respiratory failure. 3. The patient with prior thoracentesis and prior multiple bronchoscopies. now with increasing bilateral effusions 4. Fever resolved 5. BC + 1/2 G + cocci - MRSE 10/25. 6. UTI w/ PSA and Enterococcus (PCN- R). SPC last changed 10/25 7. Trach site infection with growth of PSA, 10/25 Plan . 1. Continue with present AVAPS continuously at night. abg reviewed, TRY T- SHIELD DURING DAY AGAIN today 2. Continue broad-spectrum antibiotics. 3. am abg, pcxr 4. s/p thoracentesis. transudate, cxs neg, fu pf studies 5. elevate hob 6. d/w . He prefers not to transfer to [facility] 7. enteral nutrition 8. She would not chronic nocturnal vent support . will ask outsole caser to arrange Triligy at home 9. BD, praneeth w rn, rt/ ANA HOLLIDAY MD Nov 02, 2018 10:53
[2018-11-02] MEDS: ENOXAPARIN 40 MG/0.4 ML SYRINGE. SQ SCH (13:37)
--- NOTE | 2018-11-02 15:35 | NUR ---
SS following up with discharge planning. Pt's spouse not wanting pt to transfer to [facility] and would like hospital to pursue ordering Trilogy machine. SS contacted Dr. Laird and requested script for Trilogy with settings and either FVC or MIP/NIF testing. SS will await scripts and testing for pt and will proceed accordingly with Trilogy order.
[2018-11-02] MEDS: ATORVASTATIN CALCIUM 40 MG TABLET. PO SCH (21:06)
[2018-11-03] VITALS (23 sets, daily range): BP systolic 85–181; BP diastolic 51–84
[2018-11-03] MEDS: MEROPENEM 500 MG in IV NORMAL SALINE 50ML 50 ML IV SCH ×4 (00:04→13:30)
[2018-11-03] MEDS: dilTIAZem HCL 30 MG TABLET PO SCH ×3 (05:45→21:01)
--- NOTE | 2018-11-03 07:29 | PDOC ---
Infectious Disease Note Subjective: Subjective No fevers D/W RN Vital Signs: Vital Signs Vital Signs Date Time Temp Pulse Resp B/P (MAP) Pulse Ox O2 Delivery O2 Flow Rate FiO2 11/03/18 06:00 78 18 96/57 (70) 14 Tracheal Collar 11/03/18 04:27 10.0 11/03/18 04:00 98.7 98.7 Physical Exam: PHYSICAL EXAM GENERAL: Appears comfortable HEENT: JOHN, Oral cavity clear NECK: Tracheostomy in place. LUNGS: Bilateral decreased breath sounds. HEART: S1 and S2 regular. No gallop or murmur. ABDOMEN: Obese, distended, soft and nontender. PEG tube and SPC in place EXTREMITIES: Generalized edema. No cyanosis NEUROLOGICAL: Sleeping, quadriplegia SKIN: No rash RUE-PICC clean Medications: Inpatient Meds: Current Medications Medications (Trade) Dose Ordered Sig/Lidia Start Time Stop Time Status Last Admin Dose Admin Acetaminophen (Tylenol) 500 mg PRN Q6HRS PRN 10/26/18 11:30 Albuterol Sulfate (Ventolin Neb Soln) 2.5 mg PRN TID PRN 10/26/18 11:30 Albuterol/ Ipratropium (Duoneb) 3 ml RTQID 10/26/18 12:00 11/02/18 20:08 3 ML Aspirin (Children'S Aspirin) 81 mg DAILYWBKFT 10/26/18 14:30 11/02/18 08:26 81 MG Atorvastatin Calcium (Lipitor) 80 mg QHS 11/01/18 21:00 11/02/18 21:06 80 MG Azithromycin (Zithromax) 250 mg DAILY 10/27/18 09:00 UNV Baclofen (Lioresal) 10 mg TID 10/26/18 14:00 11/02/18 21:07 10 MG Budesonide (Pulmicort) 0.5 mg RTBID 10/30/18 08:00 11/02/18 20:08 0.5 MG Ceftriaxone Sodium (Rocephin) 1 gm 1X ONCE 10/25/18 19:00 10/25/18 19:02 DC 10/25/18 20:24 1 GM Diazepam (Valium) 2 mg TID 10/26/18 14:00 11/02/18 21:07 2 MG Diltiazem HCl (Cardizem) 60 mg DAILY07 10/27/18 07:00 11/02/18 08:26 60 MG Docusate Sodium (Enemeez) 283 mg PRN DAILY PRN 10/30/18 10:30 Enoxaparin Sodium (Lovenox 40mg Syringe) 40 mg Q24H 11/02/18 11:00 11/02/18 13:37 40 MG Estradiol (Climara Weekly) 0.1 mg WEEKLY 11/02/18 09:00 11/02/18 08:40 0.1 MG Levetiracetam (Keppra) 750 mg BID 10/26/18 12:00 11/02/18 21:07 750 MG Meropenem 500 mg/ Sodium Chloride 50 ml @ 100 mls/hr Q6HRS 11/01/18 12:00 11/03/18 05:44 100 MLS/HR Methylprednisolone Sodium Succinate (SOLU-Medrol 125MG VIAL) 125 mg 1X ONCE 10/25/18 17:30 10/25/18 17:31 DC 10/25/18 19:04 125 MG Metoprolol Tartrate (Lopressor) 25 mg BID 10/26/18 12:00 11/02/18 08:27 25 MG Non-Formulary Medication 1 ea PRN TID PRN 10/27/18 11:00 11/01/18 08:33 1 EA Non-Formulary Medication (Cran/C/B.coag/ Fos/L.acid/L.rha (Probiotic Plus & Cranberry Cap)) 1 each BID 10/26/18 21:00 UNV Non-Formulary Medication (Levalbuterol Hcl (Xopenex)) 1 vial TID 10/26/18 14:00 UNV Non-Formulary Medication (Levalbuterol Hcl ) 0.63 mg TID 10/26/18 14:00 UNV Non-Formulary Medication (Modafinil (Provigil)) 200 mg DAILY 10/27/18 11:30 11/02/18 08:27 200 MG Non-Formulary Medication (Norethindrone (Karishma)) 0.35 mg DAILY 10/27/18 09:00 UNV Non-Formulary Medication (Tiotropium [place] (Spiriva)) 18 mcg DAILY 10/27/18 09:00 UNV Nystatin (Nystop) 1 parag PRN BID PRN 10/26/18 11:15 10/27/18 10:35 DC Ondansetron HCl (Zofran) 4 mg PRN Q8HRS PRN 10/25/18 20:15 10/26/18 20:14 DC Paroxetine HCl (Paxil) 10 mg DAILY 10/26/18 12:00 11/02/18 08:26 10 MG Piperacillin Sod/ Tazobactam Sod (Zosyn Per Pharmacy) 1 each PRN DAILY PRN 10/26/18 07:15 Cancel Piperacillin Sod/ Tazobactam Sod 3.375 gm/Sodium Chloride 50 ml @ 100 mls/hr Q6HRS 10/26/18 08:00 11/01/18 09:30 DC 11/01/18 06:01 100 MLS/HR Scopolamine (Transderm-Scop) 1 patch Q3DAYS 10/27/18 09:00 11/02/18 08:26 1 PATCH Sodium Monofluorophosphate (Fleet Adult) 133 ml DAILY PRN 10/26/18 11:15 11/01/18 12:29 133 ML Sodium Chloride 1,000 ml @ 126 mls/hr Q7H57M 10/25/18 20:07 10/26/18 07:12 DC Vancomycin HCl (Vanco Per Pharmacy) 1 each PRN DAILY PRN 10/26/18 07:15 11/01/18 09:17 DC 10/31/18 17:49 1 EACH Vancomycin HCl (Vancomycin Trough Level) 1 each 1X ONCE 11/02/18 07:30 11/02/18 07:30 DC Vancomycin HCl 1.25 gm/Sodium Chloride 250 ml @ 167 mls/hr Q12H 10/28/18 22:00 10/29/18 22:05 DC 10/29/18 08:52 167 MLS/HR Vancomycin HCl 1.75 gm/Sodium Chloride 500 ml @ 250 mls/hr 1X ONCE 10/26/18 08:00 10/26/18 09:59 DC 10/26/18 09:25 250 MLS/HR Vancomycin HCl 750 mg/Sodium Chloride 250 ml @ 250 mls/hr Q12H 10/31/18 20:00 11/01/18 09:14 DC 11/01/18 08:27 250 MLS/HR Vancomycin HCl 1 gm/Sodium Chloride 250 ml @ 250 mls/hr Q12H 10/30/18 05:00 10/31/18 17:34 DC 10/31/18 06:07 250 MLS/HR Labs: Micro RUN DATE: 10/28/18 PAGE 1 RUN TIME: 9569 [facility] [address] [place] [address] Judson Roy M.D., [employer] Laborer PATIENT: MINNIE BENZ ACCT: [id number] LOC: 1 [place] ICU U : [id number] AGE/SX: 68/F ROOM: [facility] REG : 10/25/[address]: RIGOBERTO VORA III DO : 1950 BED: 1 DIS : STATUS: ADM IN TLOC: SPEC #: [id number] ALVARO: 10/25/18 STATUS: COMP REQ #: [id number] RECD: 10/25/[address]: COLBY IVERSON MD SOURCE: STRA CATH ENTR: 10/25/18 [facility] DR: JESSICA PAINTING MD [facility]: STR CATH ORDERED: URINE CULTURE Procedure Result URINE CULTURE Final Final report URINE CULTURE RES 1 Final Comment Pseudomonas aeruginosa Greater than 100,000 colony forming units per mL URINE CULTURE RES 2 Final Enterococcus faecalis 25,000-50,000 colony forming units per mL ANTIMICROBIAL SUSCEPTIBILITY Final Comment S = Susceptible; I = Intermediate; R = Resistant P = Positive; N = Negative MICS are expressed in micrograms per mL Antibiotic RSLT#1 RSLT#2 RSLT#3 RSLT#4 Amikacin S =16 Cefepime I =16 Ceftazidime S =4 Ciprofloxacin R>=4 R>=8 Gentamicin I =8 Imipenem S =4 Levofloxacin R>=8 R>=8 Meropenem S =1 Nitrofurantoin S<=16 Penicillin R =16 Piperacillin S =32 Tetracycline R>=16 Ticarcillin R>=128 Tobramycin S<=1 Vancomycin S =1 Performed at: DA - [facility], [place], [place] [id number] [employer]ing Machine Operator: RELL Marques MD, Phone: [phone] RUN DATE: 10/30/18 PAGE 1 RUN TIME: 1510 [facility] [address] [place] [id number] Judson Roy M.D., [employer] Laborer PATIENT: MINNIE BENZ ACCT: [id number] LOC: 1 [facility] ICU U : [id number] AGE/SX: 68/F ROOM: 112 REG : 10/25/[address]: RIGOBERTO VORA III, DO : 1950 BED: 1 DIS : STATUS: ADM IN TLOC: SPEC #: [id number] ALVARO: 10/27/18 STATUS: RES REQ #: [id number] RECD: 10/27/[address]: DARWIN PITTS MD SOURCE: [facility] SITE ENTR: 10/27/18 [facility] DR: ANIKET LUNA MD SPDESC: RIGOBERTO VORA III, AMAN U MD KURTZ, ANN E MD MCSWEYN, DONALD J MD ORDERED: ANAER/AEROB/JEANINE Procedure Result ANAEROBIC-AEROBIC CULTURE PENDING ANAEROBIC RES 1 PENDING AEROBIC CULT Final Final report AEROBIC RES 1 Final Comment Pseudomonas aeruginosa 1+ ANTIMICROBIAL SUSCEPTIBILITY Final Comment S = Susceptible; I = Intermediate; R = Resistant P = Positive; N = Negative MICS are expressed in micrograms per mL Antibiotic RSLT#1 RSLT#2 RSLT#3 RSLT#4 Amikacin S<=2 Cefepime R>=64 Ceftazidime R>=64 Ciprofloxacin R>=4 Gentamicin S<=1 Imipenem I =8 Levofloxacin R>=8 Meropenem S =4 Piperacillin R>=128 Ticarcillin R>=128 Tobramycin S<=1 CONTINUED ON NEXT PAGE RUN DATE: 10/30/18 PAGE 2 RUN TIME: 1510 [facility] [address] [place] [address] Judson Roy M.D., [employer] Laborer SPEC: [id number] PATIENT: MINNIE BENZ [id number] ( Continued) Procedure Result GRAM STAIN Final Final report GRAM STAIN RES 1 Final No organisms seen GRAM STAIN RES 2 Final Comment No white blood cells seen. Performed at: - [facility] [address], [place], [place] [id number] [employer]ing Machine Operator: RELL Marques MD, Phone: [phone] Objective: Assessment: Fever, resolved Lactic acidosis and sepsis.resolved Suspected aspiration BC + 1/2 G + cocci - MRSE 10/25. Likely contaminant UTI w/ PSA and Enterococcus (PCN- R). SPC last changed 10/25 Trach site infection with growth of PSA, 10/25 Pleural effusions s/p bilat thoracentesis on 10/28. cultures neg to date Hypercapnic respiratory failure. Advanced multiple scleroses. h/o seizures on Keppra h/o MRSA, VRE, c. diff Plan: Plan of Care cont merrem was on IV Vanc and zosyn prior f/u labs and cults Supportive care ANIKA PITTS MD Nov 03, 2018 07:29
[2018-11-03] MEDS: BUDESONIDE 0.5 MG/2 ML NEBU. NEB SCH ×2 (08:00→19:49)
[2018-11-03] MEDS: IPRATRPIUM/ALBUTEROL 0.5/2.5MG 3 ML NEBU. NEB SCH ×3 (08:27→19:49)
--- NOTE | 2018-11-03 08:53 | PDOC ---
PROGRESS NOTES Chief Complaint Chief Complaint Acute on chronic respiratory failure Bilateral pleural effusion Advanced multiple sclerosis tracheostomy history of seizures PEG tube baclofen pump colostomy Suprapubic catheter S.p thoracentesis > 1L Plan: Continue with present AVAPS continuously at night. abg reviewed, T-SHIELD DURING DAY Continue broad-spectrum antibiotics ABG and CXR in morning Elevate hob Cont enteral nutrition She would need chronic nocturnal vent support . NIF -15 .will ask geriatric case manager to arrange Trilogy at home History of Present Illness History of Present Illness discussed with , DC plan, will need trach shield during day, concern about valve for speaking, though with her continued ventilatory requirements this is Needs BIPAP at home based on NIF -15, had been discussed, necessary to continue at home cont the IV abx Opening eyes more to verbal today. Mumbling. No complaints. KUB shows no obstruction. BP up a bit today Plan: Pleural fluid without growth. Staph epidermidis blood culture positive, trach with pseudomonas, Urine with enterococcus and pseudomonas F/u ID recs Needs continuous ventilatory, BIPAP support such as trilogy on discharge Vitals Vitals Vital Signs Date Time Temp Pulse Resp B/P (MAP) Pulse Ox O2 Delivery O2 Flow Rate FiO2 11/03/18 08:34 92 Tracheal Collar 10.0 11/03/18 06:00 78 18 96/57 (70) 11/03/18 04:00 98.7 98.7 Physical Exam Physical Exam GENERAL: Appears comfortable HEENT: JOHN, Oral cavity clear NECK: Tracheostomy in place. LUNGS: Bilateral decreased breath sounds. HEART: S1 and S2 regular. No gallop or murmur. ABDOMEN: Obese, distended, soft and nontender. PEG tube and SPC in place EXTREMITIES: Generalized edema. No cyanosis NEUROLOGICAL: Sleeping, quadriplegia SKIN: No rash RUE-PICC clean General: Alert, Cooperative, No acute distress Heart: Regular rate (SR), Other (distnat heart sounds) Lungs: Other (decrease bs) Abdomen: Soft Extremities: No cyanosis, Other (generalized edema trace to 1+) Skin: Other (suprapubic cath, PEG tube in place, trach site intact) Assessment and Plan Assessmemt and Plan Problems Medical Problems: (1) Hypercapnic respiratory failure Status: Acute Comment Review of Relevant I have reviewed the following items lucila (where applicable) has been applied. Labs Microbiology 10/26/18 Blood Culture - Final, Complete NO GROWTH AFTER 5 DAYS 10/27/18 Anaerobic/Aerobic Culture - Final, Complete 10/27/18 Anaerobic Culture Result 1 (NANDO) - Final, Complete 10/27/18 Aerobic Culture - Final, Complete 10/27/18 Aerobic Culture Result 1 (NANDO) - Final, Complete 10/27/18 Gram Stain - Final, Complete 10/27/18 Gram Stain Result 1 (NANDO) - Final, Complete 10/27/18 Gram Stain Result 2 (NANDO) - Final, Complete 10/25/18 Urine Culture - Final, Complete 10/25/18 Urine Culture Result 1 (NANDO) - Final, Complete 10/25/18 Urine Culture Result 2 (NANDO) - Final, Complete 10/25/18 Antimicrobic Susceptibility - Final, Complete 10/27/18 Anaerobic/Aerobic Culture - Final, Complete 10/27/18 Anaerobic Culture Result 1 (NANDO) - Final, Complete 10/27/18 Aerobic Culture - Final, Complete 10/27/18 Aerobic Culture Result 1 (NANDO) - Final, Complete 10/27/18 Antimicrobic Susceptibility - Final, Complete 10/27/18 Gram Stain - Final, Complete 10/27/18 Gram Stain Result 1 (NANDO) - Final, Complete 10/27/18 Gram Stain Result 2 (NANDO) - Final, Complete Medications Current Medications Sodium Chloride 1,000 ml @ 1,000 mls/hr Q1H IV Last administered on 10/25/18at 19:04; Start 10/25/18 at 17:28; Stop 10/25/18 at 18:27; Status DC Albuterol/ Ipratropium (Duoneb) 3 ml 1X ONCE NEB Last administered on at 17:53; Start 10/25/18 at 17:30; Stop 10/25/18 at 17:31; Status DC Methylprednisolone Sodium Succinate (SOLU-Medrol 125MG VIAL) 125 mg 1X ONCE IV Last administered on 10/25/18at 19:04; Start 10/25/18 at 17:30; Stop 10/25/18 at 17:31; Status DC Ceftriaxone Sodium (Rocephin) 1 gm 1X ONCE IVP Last administered on 10/25/18at 20:24; Start 10/25/18 at 19:00; Stop 10/25/18 at 19:02; Status DC Ondansetron HCl (Zofran) 4 mg PRN Q8HRS PRN IV NAUSEA/VOMITING; Start 10/25/18 at 20:15; Stop 10/26/18 at 20:14; Status DC Sodium Chloride 1,000 ml @ 126 mls/hr Q7H57M IV ; Start 10/25/18 at 20:07; Stop 10/26/18 at 07:12; Status DC Acetaminophen (Tylenol) 650 mg 1X ONCE PEG Last administered on 10/26/18at 04:59 ; Start 10/26/18 at 04:30; Stop 10/26/18 at 04:32; Status DC Piperacillin Sod/ Tazobactam Sod (Zosyn Per Pharmacy) 1 each PRN DAILY PRN MC SEE COMMENTS; Start 10/26/18 at 07:15; Status Cancel Vancomycin HCl (Vanco Per Pharmacy) 1 each PRN DAILY PRN MC SEE COMMENTS Last administered on 10/31/18at 17:49; Start 10/26/18 at 07:15; Stop 11/01/18 at 09:17 ; Status DC Piperacillin Sod/ Tazobactam Sod 3.375 gm/Sodium Chloride 50 ml @ 100 mls/hr Q6HRS IV Last administered on 11/01/18at 06:01; Start 10/26/18 at 08:00; Stop at 09:30; Status DC Vancomycin HCl 1.75 gm/Sodium Chloride 500 ml @ 250 mls/hr 1X ONCE IV Last administered on 10/26/18at 09:25; Start 10/26/18 at 08:00; Stop 10/26/18 at 09:59; Status DC Azithromycin (Zithromax) 250 mg DAILY PO ; Start 10/27/18 at 09:00; Status UNV Baclofen (Lioresal) 10 mg TID PO Last administered on 11/02/18at 21:07; Start at 14:00 Diazepam (Valium) 2 mg TID PO Last administered on 11/02/18at 21:07; Start at 14:00 Diltiazem HCl (Cardizem) 30 mg QHS PO Last administered on 11/01/18at 21:01; Start 10/26/18 at 21:00 Estradiol (Climara Weekly) 1 mg WEEKLY TD ; Start 11/02/18 at 09:00; Stop at 09:00; Status DC Levetiracetam (Keppra) 750 mg BID PO Last administered on 11/02/18at 21:07; Start 10/26/18 at 12:00 Metoprolol Tartrate (Lopressor) 25 mg BID PO Last administered on 11/02/18at 08: 27; Start 10/26/18 at 12:00 Sodium Monofluorophosphate (Fleet Adult) 133 ml DAILY PRN RC CONSTIPATION, 2ND CHOICE MA Last administered on 11/01/18at 12:29; Start 10/26/18 at 11:15 Nystatin (Nystop) 1 parag PRN BID PRN TP RASH; Start 10/26/18 at 11:15; Stop 10/27 at 10:35; Status DC Acetaminophen (Tylenol) 500 mg PRN Q6HRS PRN PO MILD PAIN / TEMP; Start at 11:30 Non-Formulary Medication (Cran/C/B.coag/ Fos/L.acid/L.rha (Probiotic Plus & Cranberry Cap)) 1 each BID PO ; Start 10/26/18 at 21:00; Status UNV Diltiazem HCl (Cardizem) 60 mg DAILY16 PO Last administered on 11/02/18at 16:20 ; Start 10/26/18 at 16:00 Diltiazem HCl (Cardizem) 60 mg DAILY07 PO Last administered on 11/02/18at 08:26 ; Start 10/27/18 at 07:00 Non-Formulary Medication (Levalbuterol Hcl ) 0.63 mg TID IH ; Start 10/26/18 at 14:00; Status UNV Non-Formulary Medication (Levalbuterol Hcl (Xopenex)) 1 vial TID NEB ; Start 10/26/18 at 14:00; Status UNV Non-Formulary Medication (Modafinil (Provigil)) 200 mg DAILY PO Last administered on 11/02/18at 08:27; Start 10/27/18 at 11:30 Non-Formulary Medication (Norethindrone (Karishma)) 0.35 mg DAILY PO ; Start 10/27 at 09:00; Status UNV Paroxetine HCl (Paxil) 10 mg DAILY PO Last administered on 11/02/18 08:26; Start 10/26/18 at 12:00 Scopolamine (Transderm-Scop) 1 patch Q3DAYS TD Last administered on 11/02/18 08:26; Start 10/27/18 at 09:00 Non-Formulary Medication (Tiotropium [place] (Spiriva)) 18 mcg DAILY IH ; Start 10/27/18 at 09:00; Status UNV Albuterol/ Ipratropium (Duoneb) 3 ml RTQID NEB Last administered on 11/03/18 08:27; Start 10/26/18 at 12:00 Albuterol Sulfate (Ventolin Neb Soln) 2.5 mg PRN TID PRN NEB SHORTNESS OF BREATH; Start 10/26/18 at 11:30 Vancomycin HCl 1 gm/Sodium Chloride 250 ml @ 250 mls/hr Q24H IV Last administered on 10/28/18 09:51; Start 10/27/18 at 09:30; Stop 10/28/18 at 12:00 ; Status DC Vancomycin HCl (Vancomycin Trough Level) 1 each 1X ONCE MC Last administered on 10/28/18 09:00; Start 10/28/18 at 09:00; Stop 10/28/18 at 09:01; Status DC Aspirin (Children'S Aspirin) 81 mg DAILYWBKFT PO Last administered on 08:26; Start 10/26/18 at 14:30 Non-Formulary Medication 1 ea PRN TID PRN PO APPLY TO AFFECTED AREA Last administered on 11/01/18 08:33; Start 10/27/18 at 11:00 Vancomycin HCl 1.25 gm/Sodium Chloride 250 ml @ 167 mls/hr Q12H IV Last administered on 10/29/18 08:52; Start 10/28/18 at 22:00; Stop 10/29/18 at 22:05 ; Status DC Vancomycin HCl (Vancomycin Trough Level) 1 each 1X ONCE MC Last administered on 10/29/18at 21:30; Start 10/29/18 at 21:30; Stop 10/29/18 at 21:31; Status DC Vancomycin HCl 1 gm/Sodium Chloride 250 ml @ 250 mls/hr Q12H IV Last administered on 4/14/19at 06:07; Start 10/30/18 at 05:00; Stop 10/31/18 at 17:34 ; Status DC Vancomycin HCl (Vancomycin Trough Level) 1 each 1X ONCE MC Last administered on 10/31/18at 17:30; Start 10/31/18 at 17:30; Stop 10/31/18 at 17:34; Status DC Budesonide (Pulmicort) 0.5 mg RTBID NEB Last administered on 11/03/18at 08:00; Start 10/30/18 at 08:00 Docusate Sodium (Enemeez) 283 mg PRN DAILY PRN MA CONSTIPATION; Start 10/30/18 at 10:30 Vancomycin HCl 750 mg/Sodium Chloride 250 ml @ 250 mls/hr Q12H IV Last administered on 11/01/18at 08:27; Start 10/31/18 at 20:00; Stop 11/01/18 at 09:14 ; Status DC Vancomycin HCl (Vancomycin Trough Level) 1 each 1X ONCE MC ; Start 11/02/18 at 07:30; Stop 11/02/18 at 07:30; Status DC Meropenem 500 mg/ Sodium Chloride 50 ml @ 100 mls/hr Q6HRS IV Last administered on 11/03/18at 05:44; Start 11/01/18 at 12:00 Atorvastatin Calcium (Lipitor) 80 mg QHS PO Last administered on 11/02/18at 21: 06; Start 11/01/18 at 21:00 Estradiol (Climara Weekly) 0.1 mg WEEKLY TD Last administered on 11/02/18at 08: 40; Start 11/02/18 at 09:00 Enoxaparin Sodium (Lovenox 40mg Syringe) 40 mg Q24H SQ Last administered on at 13:37; Start 11/02/18 at 11:00 Active Scripts Active Reported Atorvastatin Calcium 80 Mg Tablet 80 Mg PO HS Cardizem Tablet (Diltiazem Hcl) 30 Mg Tablet 30 Mg PO HS PRN Enema Ready To Use (Na Phos,M-B/Na Phos,Di-Ba) 133 Ml Enema 133 Ml RC Acetaminophen 500 Mg Tablet 1 Tab PO Q6HRS Probiotic Plus & Cranberry Cap (Cran/C/B.coag/Fos/L.acid/L.rha) 1 Each Capsule 1 Each PO BID Azithromycin Tablet (Azithromycin) 250 Mg Tablet 250 Mg PO DAILY Estradiol Transdermal Patch (Estradiol) 1 Each Patch.tdwk 1 Each TD BID WEEKLY Next dose 06/30/17 Karishma (Norethindrone) 0.35 Mg Tablet 0.35 Mg PO DAILY Keppra (Levetiracetam) 500 Mg Tablet 750 Mg PO BID Cardizem Tablet (Diltiazem Hcl) 60 Mg Tablet 60 Mg PO DAILY16 Metoprolol Tartrate 25 Mg Tablet 1 Tab PO BID Xopenex (Levalbuterol Hcl) 0.63 Mg/3 Ml Vial.neb 1 Vial NEB TID Valium (Diazepam) 2 Mg Tablet 2 Mg PO TID Transderm-Scop (Scopolamine) 1 Each Patch.td72 1 Each TD Q3DAYS Indication: secretions Next dose: 06/30/17 am Nystop (Nystatin) 60 Gm Powder 60 Gm TP PRN Indication: rash NExt dose: as needed Levalbuterol Hcl 0.63 Mg/3 Ml Vial.neb 0.63 Mg IH TID Spiriva (Tiotropium [place]) 18 Mcg Cap.w.dev 18 Mcg IH DAILY Diltiazem Hcl Tablet (Diltiazem Hcl) 60 Mg Tablet 60 Mg PO DAILY07 Provigil (Modafinil) 200 Mg Tablet 200 Mg PO DAILY Paxil (Paroxetine Hcl) 10 Mg/5 Ml Oral.susp 10 Mg PO DAILY Baclofen 10 Mg Tablet 10 Mg PO TID Vitals/I & O Vital Sign - Last 24 Hours 11/02/18 11/02/18 11/02/18 11/02/18 09:00 10:00 11:00 11:32 Temp 98.6 98.6 Pulse 95 90 93 Resp 20 20 20 B/P (MAP) 170/90 (116) 157/76 (103) 154/62 (92) Pulse Ox 94 93 97 97 O2 Delivery Tracheal Collar Tracheal Collar Tracheal Collar AP NEB O2 Flow Rate 12.0 11/02/18 11/02/18 11/02/18 11/02/18 12:00 12:10 13:00 14:00 Pulse 90 94 90 Resp 20 23 20 B/P (MAP) 148/82 (104) 160/78 (105) 158/70 (99) Pulse Ox 93 93 93 O2 Delivery Tracheal Collar Trach Collar Tracheal Collar Tracheal Collar 11/02/18 11/02/18 11/02/1816/19 15:00 16:00 16:00 16:17 Temp 98.5 98.5 Pulse 90 93 Resp 21 23 B/P (MAP) 156/72 (100) 161/74 (103) Pulse Ox 95 97 94 O2 Delivery Tracheal Collar Trach Collar Tracheal Collar AP NEB O2 Flow Rate 10.0 11/02/18 11/02/18 11/02/18 11/02/18 16:20 16:55 17:00 18:00 Pulse 93 98 87 Resp 16 14 B/P (MAP) 161/74 141/67 (91) 93/47 (62) Pulse Ox 96 94 95 O2 Delivery BiPAP/CPAP AVAPS AVAPS 11/02/18 11/02/18 11/02/18 11/02/18 19:00 20:00 20:00 20:08 Temp 98.2 98.2 Pulse 82 84 Resp 13 16 B/P (MAP) 87/49 (62) 135/64 (87) Pulse Ox 97 100 99 O2 Delivery AVAPS AVAPS Trach Collar BiPAP/CPAP 11/02/18 11/02/18 11/02/18 11/02/18 20:21 21:00 21:00 21:00 Pulse 85 85 85 Resp 20 B/P (MAP) 85/43 85/47 98/54 (69) Pulse Ox 98 O2 Delivery Tracheal Collar O2 Flow Rate 10.0 11/02/18 11/02/18 11/02/18 11/02/18 22:00 22:40 23:00 23:00 Temp 98.2 98.2 Pulse 81 80 80 Resp 20 20 20 B/P (MAP) 86/54 (65) 109/58 (75) 91/52 (65) Pulse Ox 98 98 98 96 O2 Delivery Tracheal Collar Tracheal Collar BiPAP/CPAP O2 Flow Rate 10.0 11/02/18 11/02/18 11/02/18 11/03/18 23:59 23:59 23:59 01:00 Pulse 79 80 Resp 20 20 B/P (MAP) 99/57 (71) 102/52 (69) Pulse Ox 16 16 O2 Delivery Tracheal Collar Trach Collar Tracheal Collar O2 Flow Rate 10.0 11/03/18 11/03/18 11/03/18 11/03/18 02:00 02:40 03:00 04:00 Temp 98.7 98.7 Pulse 68 74 76 Resp 20 20 20 B/P (MAP) 91/52 (65) 87/53 (64) 102/68 (79) Pulse Ox 14 97 13 18 O2 Delivery Tracheal Collar BiPAP/CPAP Tracheal Collar Tracheal Collar 11/03/18 11/03/18 11/03/18 11/03/18 04:00 04:27 05:00 05:20 Pulse 76 Resp 20 B/P (MAP) 102/68 (79) Pulse Ox 18 97 O2 Delivery Trach Collar Tracheal Collar BiPAP/CPAP O2 Flow Rate 10.0 11/03/18 11/03/18 11/03/18 05:45 06:00 08:34 Pulse 81 78 Resp 18 B/P (MAP) 104/63 96/57 (70) Pulse Ox 14 92 O2 Delivery Tracheal Collar Tracheal Collar O2 Flow Rate 10.0 Intake and Output 11/02/18 11/02/18 11/03/18 14:59 22:59 06:59 Intake Total 470 ml 205 ml 250 ml Output Total 1525 ml 50 ml Balance 470 ml -1320 ml 200 ml FLAQUITO LIRA MD Nov 03, 2018 08:53
[2018-11-03 08:55] LABS: CREATININE 0.5 mg/dL (0.6-1.0); GFR 123.1; POTASSIUM 4.3 mmol/L (3.5-5.1)
--- NOTE | 2018-11-03 09:00 | PDOC ---
SUBJECTIVE Subjective Pt sleeping, appears comfortable. Nursing has no concerns for urology. SP tubing looks good and is draining well. OBJECTIVE Objective Physical Exam: General appearance: Pt sleeping, appears comfortable. Head: Normocephalic, without obvious abnormality Eyes: closed Lungs: Regular respirations with machine assistance. Abdomen: soft, non-tender. No masses, no organomegaly. + SP tubing in place draining clear yellow urine. Dressing over SP site that his CDI. Pelvic: deferred Vital Signs Vital Signs Date Time Temp Pulse Resp B/P (MAP) Pulse Ox O2 Delivery O2 Flow Rate FiO2 11/03/18 08:34 92 Tracheal Collar 10.0 11/03/18 06:00 78 18 96/57 (70) 14 Tracheal Collar 11/03/18 05:45 81 104/63 11/03/18 05:20 97 BiPAP/CPAP 11/03/18 05:00 76 20 102/68 (79) 18 Tracheal Collar 11/03/18 04:27 10.0 11/03/18 04:00 Trach Collar 11/03/18 04:00 98.7 76 20 102/68 (79) 18 Tracheal Collar 98.7 11/03/18 03:00 74 20 87/53 (64) 13 Tracheal Collar 11/03/18 02:40 97 BiPAP/CPAP 11/03/18 02:00 68 20 91/52 (65) 14 Tracheal Collar 11/03/18 01:00 80 20 102/52 (69) 16 Tracheal Collar 11/02/18 23:59 Trach Collar 11/02/18 23:59 79 20 99/57 (71) 16 Tracheal Collar 11/02/18 23:59 10.0 11/02/18 23:00 96 BiPAP/CPAP 11/02/18 23:00 80 20 91/52 (65) 98 Tracheal Collar 11/02/18 22:40 98.2 80 20 109/58 (75) 98 10.0 98.2 11/02/18 22:00 81 20 86/54 (65) 98 Tracheal Collar 11/02/18 21:00 85 20 98/54 (69) 98 Tracheal Collar 11/02/18 21:00 85 85/47 11/02/18 21:00 85 85/43 11/02/18 20:21 10.0 11/02/18 20:08 99 BiPAP/CPAP 11/02/18 20:00 Trach Collar 11/02/18 20:00 98.2 84 16 135/64 (87) 100 AVAPS 98.2 11/02/18 19:00 82 13 87/49 (62) 97 AVAPS 11/02/18 18:00 87 14 93/47 (62) 95 AVAPS 11/02/18 17:00 98 16 141/67 (91) 94 AVAPS 11/02/18 16:55 96 BiPAP/CPAP 11/02/18 16:20 93 161/74 11/02/18 16:17 94 AP NEB 10.0 11/02/18 16:00 98.5 93 23 161/74 (103) 97 Tracheal Collar 98.5 11/02/18 16:00 Trach Collar 11/02/18 15:00 90 21 156/72 (100) 95 Tracheal Collar 11/02/18 14:00 90 20 158/70 (99) 93 Tracheal Collar 11/02/18 13:00 94 23 160/78 (105) 93 Tracheal Collar 11/02/18 12:10 Trach Collar 11/02/18 12:00 90 20 148/82 (104) 93 Tracheal Collar 11/02/18 11:32 97 AP NEB 12.0 11/02/18 11:00 98.6 93 20 154/62 (92) 97 Tracheal Collar 98.6 11/02/18 10:00 90 20 157/76 (103) 93 Tracheal Collar 11/02/18 09:00 95 20 170/90 (116) 94 Tracheal Collar I & O Intake and Output 11/03/18 06:59 Intake Total 925 ml Output Total 1575 ml Balance -650 ml Intake Oral 0 ml IV Total 350 ml Tube Feeding 415 ml Other 160 ml Output Urine Total 1575 ml PHYSICAL EXAM Physical Exam General appearance: Pt sleeping, appears comfortable. Head: Normocephalic, without obvious abnormality Eyes: closed Lungs: Regular respirations with machine assistance. Abdomen: soft, non-tender. No masses, no organomegaly. + SP tubing in place draining clear yellow urine. Dressing over SP site that his CDI. Pelvic: deferred ASSESSMENT/PLAN Assessment/Plan SP tubing is due 11/15/18 per q 3 week schedule since it was last changed on . If she continues to develop infections, consider q 2 week sp tubing changes. Nursing to continue local hygiene and maintenance of SP site daily. A follow up appointment has been arranged for her with Dr. [place] of [facility] at [facility] on 11/19/18 at 1120 am. Appointment card given to patient this past Thursday. Will follow peripherally while in house. Discussed above with attending RN. COMMENT Lab Laboratory Tests Test 11/03/18 08:10 Sodium Level 146 mmol/L (136-145) Potassium Level 4.3 mmol/L (3.5-5.1) Chloride Level 106 mmol/L (98-107) Carbon Dioxide Level 34 mmol/L (21-32) Anion Gap 6 (6-14) Blood Urea Nitrogen 20 mg/dL (7-20) Creatinine 0.5 mg/dL (0.6-1.0) Estimated GFR (Cockcroft-Gault) 123.1 Glucose Level 126 mg/dL (70-99) Calcium Level 9.0 mg/dL (8.5-10.1) FREDY LATIF APRN Nov 03, 2018 09:00
[2018-11-03] MEDS: diazePAM 2 MG TABLET PO SCH ×3 (09:33→21:00)
[2018-11-03] MEDS: ASPIRIN CHEWABLE 81 MG TABLET. PO SCH (09:33)
[2018-11-03] MEDS: PARoxetine 10 MG TABLET PO SCH (09:33)
[2018-11-03] MEDS: levETIRAcetam 250 MG TABLET PO SCH ×2 (09:33→21:02)
[2018-11-03] MEDS: BACLOFEN 10 MG TABLET. PO SCH ×3 (09:34→21:01)
[2018-11-03] MEDS: METOPROLOL TART IMMED RELEASE 25 MG TABLET. PO SCH ×2 (09:34→21:00)
[2018-11-03] MEDS: ENOXAPARIN 40 MG/0.4 ML SYRINGE. SQ SCH (09:35)
--- NOTE | 2018-11-03 10:48 | PDOC ---
PULMONARY PROGRESS NOTES Subjective Had 8 hrs of TS yesterday back on TS Vitals Vital Signs Date Time Temp Pulse Resp B/P (MAP) Pulse Ox O2 Delivery O2 Flow Rate FiO2 11/03/18 09:34 100 140/73 11/03/18 08:34 92 Tracheal Collar 10.0 11/03/18 06:00 18 11/03/18 04:00 98.7 98.7 Comments as mentioned as above other sys otherwise neg ROS: No Nausea, No Chest Pain General: Alert, No acute distress HEENT: Other (nc at perrl nose throat clear, neck, trach site ok no lad, no thyromegaly) Lungs: Other (decrease bs) Cardiovascular: S1, S2 Abdomen: Soft, Non-tender, Other (no mass) Neuro Exam: Alert Extremities: Other (edema) Skin: Warm Labs Laboratory Tests Test 11/03/18 08:10 Sodium Level 146 mmol/L (136-145) Potassium Level 4.3 mmol/L (3.5-5.1) Chloride Level 106 mmol/L (98-107) Carbon Dioxide Level 34 mmol/L (21-32) Anion Gap 6 (6-14) Blood Urea Nitrogen 20 mg/dL (7-20) Creatinine 0.5 mg/dL (0.6-1.0) Estimated GFR (Cockcroft-Gault) 123.1 Glucose Level 126 mg/dL (70-99) Calcium Level 9.0 mg/dL (8.5-10.1) Laboratory Tests Test 11/03/18 08:10 Sodium Level 146 mmol/L (136-145) Potassium Level 4.3 mmol/L (3.5-5.1) Chloride Level 106 mmol/L (98-107) Carbon Dioxide Level 34 mmol/L (21-32) Anion Gap 6 (6-14) Blood Urea Nitrogen 20 mg/dL (7-20) Creatinine 0.5 mg/dL (0.6-1.0) Estimated GFR (Cockcroft-Gault) 123.1 Glucose Level 126 mg/dL (70-99) Calcium Level 9.0 mg/dL (8.5-10.1) Medications Active Scripts Medications Dose Route/Sig Max Daily Dose Days Date Category Dose Instructions Cardizem Tablet (Diltiazem Hcl) 30 Mg Tablet 30 Mg PO HS PRN 4/9/19 Reported Enema Ready To Use (Na Phos,M-B/Na Phos,Di-Ba) 133 Ml Enema 133 Ml RC 01/30/17 Reported Acetaminophen 500 Mg Tablet 1 Tab PO Q6HRS 01/30/17 Reported Probiotic Plus & Cranberry Cap (Cran/C/B.coag/Fos/L.acid/L.rha) 1 Each Capsule 1 Each PO BID 01/30/17 Reported Azithromycin Tablet (Azithromycin) 250 Mg Tablet 250 Mg PO DAILY 01/30/17 Reported Estradiol Transdermal Patch (Estradiol) 1 Each Patch.tdwk 1 Each TD BID WEEKLY 01/30/17 Reported Next dose 06/30/17 Karishma (Norethindrone) 0.35 Mg Tablet 0.35 Mg PO DAILY 01/30/17 Reported Keppra (Levetiracetam) 500 Mg Tablet 750 Mg PO BID 01/30/17 Reported Cardizem Tablet (Diltiazem Hcl) 60 Mg Tablet 60 Mg PO DAILY16 06/12/15 Reported Metoprolol Tartrate 25 Mg Tablet 1 Tab PO BID 12/28/14 Reported Xopenex (Levalbuterol Hcl) 0.63 Mg/3 Ml Vial.neb 1 Vial NEB TID 12/27/14 Reported Valium (Diazepam) 2 Mg Tablet 2 Mg PO TID 10/11/13 Reported Transderm-Scop (Scopolamine) 1 Each Patch.td72 1 Each TD Q3DAYS 07/28/13 Reported Indication: secretions Next dose: 06/30/17 am Nystop (Nystatin) 60 Gm Powder 60 Gm TP PRN 07/28/13 Reported Indication: rash NExt dose: as needed Levalbuterol Hcl 0.63 Mg/3 Ml Vial.neb 0.63 Mg IH TID 07/28/13 Reported Spiriva (Tiotropium [place]) 18 Mcg Cap.w.dev 18 Mcg IH DAILY 07/28/13 Reported Diltiazem Hcl Tablet (Diltiazem Hcl) 60 Mg Tablet 60 Mg PO DAILY07 07/28/13 Reported Provigil (Modafinil) 200 Mg Tablet 200 Mg PO DAILY 07/28/13 Reported Paxil (Paroxetine Hcl) 10 Mg/5 Ml Oral.susp 10 Mg PO DAILY 07/28/13 Reported Baclofen 10 Mg Tablet 10 Mg PO TID 07/28/13 Reported Comments cxr reviewed, 11/01 bilateral effusions, no change Impression . 1. Acute on chronic hypercapnic and hypoxic respiratory failure secondary to multifactorial etiologies including sepsis , effusions 2. The patient with severe/advanced multiple sclerosis with chronic respiratory failure. 3. The patient with prior thoracentesis and prior multiple bronchoscopies. now with increasing bilateral effusions 4. Fever resolved 5. BC + 1/2 G + cocci - MRSE 10/25. 6. UTI w/ PSA and Enterococcus (PCN- R). SPC last changed 10/25 7. Trach site infection with growth of PSA, 10/25 Plan . 1. Continue with present AVAPS continuously at night. abg reviewed, T-SHIELD DURING DAY 2. Continue broad-spectrum antibiotics. 3. am abg, pcxr 4. s/p thoracentesis. transudate, cxs neg, fu pf studies 5. elevate hob 6. d/w . He prefers not to transfer to [facility] [address] 7. enteral nutrition 8. She would not chronic nocturnal vent support . NIF -15 .will ask case hardener to arrange Triligy at home 9. BD, discussed w rn, rt/ / RESEARCH PROGRAM COORDINATOR ANA HOLLIDAY MD Nov 03, 2018 10:48
[2018-11-03 12:52] LABS: BASE EXCESS ABG 8 mmol/L (-3-3); HCO3 ABG 35 mmol/L (21-28); PO2 ABG 75 mmHg (65-108); SAT O2 ABG 93 % (92-99)
[2018-11-03 12:55] LABS: FIO2 ABG 60 TS; PCO2 ABG 63 mmHg (35-46)
[2018-11-03] MEDS ORDERED: hydrALAZINE 20 MG/ML VIAL. IVP PRN (14:00)
--- NOTE | 2018-11-03 15:21 | RAD ---
Single view of the chest. 11/03/2018 1:43 PM Indication: PLEURAL EFFUSION. Comparison: Chest radiograph November 01, 2018 Findings: Moderate layering pleural effusions are similar to comparison study. Tracheostomy tube is unchanged. Right PICC line is unchanged. Bony thorax is intact. Central vascular congestion is similar. IMPRESSION: 1. Stable support lines and tubes 2. Central vascular congestion and moderate layering pleural effusions are similar to comparison study Electronically signed by: Nicolas Charles MD (11/03/2018 3:18 PM) [id number]
--- NOTE | 2018-11-03 15:59 | NUR ---
SS following up with discharge planning. SS phoned and faxed order for Trilogy to Andrés Roth at [facility], ; fax [phone]. SS will await further communication from Andrés and will proceed accordingly.
[2018-11-03] MEDS ORDERED: METOPROLOL TARTRATE 5 MG/5 ML VIAL. IVP PRN (17:00)
[2018-11-03] MEDS ORDERED: FUROSEMIDE 40 MG/4 ML VIAL. IVP ONE (21:00)
[2018-11-03] MEDS: ATORVASTATIN CALCIUM 40 MG TABLET. PO SCH (21:00)
[2018-11-04] VITALS (23 sets, daily range): BP systolic 82–141; BP diastolic 48–75
[2018-11-04] MEDS: MEROPENEM 500 MG in IV NORMAL SALINE 50ML 50 ML IV SCH ×4 (00:17→15:39)
[2018-11-04 06:12] LABS: BASO % 1 % (0-3); EOS # 0.2 x10^3/uL (0.0-0.7); EOS % 4 % (0-3); HEMATOCRIT 31.4 % (36.0-47.0); HEMOGLOBIN 10.2 g/dL (12.0-15.5); LYMPH # 0.7 x10^3/uL (1.0-4.8); LYMPH % 12 % (24-48); MEAN CORPUSCULAR HEMOGLOBIN 30 pg (25-35); MEAN CORPUSCULAR HGB CONC 33 g/dL (31-37); MEAN CORPUSCULAR VOLUME 93 fL (79-100); MONO # 0.4 x10^3/uL (0.0-1.1); MONO % 7 % (0-9); NEUT # 4.1 x10^3uL (1.8-7.7); NEUT % 76 % (31-73); PLATELET COUNT 326 x10^3/uL (140-400); RED BLOOD COUNT 3.37 x10^6/uL (3.50-5.40); RED CELL DISTRIBUTION WIDTH 15.4 % (11.5-14.5); WHITE BLOOD COUNT 5.4 x10^3/uL (4.0-11.0)
[2018-11-04] MEDS: dilTIAZem HCL 30 MG TABLET PO SCH ×3 (06:27→21:08)
[2018-11-04] MEDS: IPRATRPIUM/ALBUTEROL 0.5/2.5MG 3 ML NEBU. NEB SCH ×4 (07:44→20:20)
[2018-11-04] MEDS: BUDESONIDE 0.5 MG/2 ML NEBU. NEB SCH ×2 (07:44→20:20)
--- NOTE | 2018-11-04 07:57 | PDOC ---
Infectious Disease Note Subjective: Subjective No fevers D/W RN ROS: ROS unable to obtain Vital Signs: Vital Signs Vital Signs Date Time Temp Pulse Resp B/P (MAP) Pulse Ox O2 Delivery O2 Flow Rate FiO2 11/04/18 07:45 99 BiPAP/CPAP 11/04/18 06:27 79 97/55 11/04/18 06:04 13 11/04/18 04:00 10.0 11/04/18 04:00 98.6 98.6 Physical Exam: PHYSICAL EXAM GENERAL: Appears comfortable HEENT: anicteric, no thrush NECK: Tracheostomy in place. LUNGS: Bilateral decreased breath sounds. HEART: S1 and S2 regular. No gallop or murmur. ABDOMEN: Obese, distended, soft and nontender. PEG tube and SPC in place EXTREMITIES: Generalized edema. No cyanosis NEUROLOGICAL: Sleeping, quadriplegia SKIN: No rash RUE-PICC clean Medications: Inpatient Meds: Current Medications Medications (Trade) Dose Ordered Sig/Lidia Start Time Stop Time Status Last Admin Dose Admin Acetaminophen (Tylenol) 500 mg PRN Q6HRS PRN 10/26/18 11:30 Albuterol Sulfate (Ventolin Neb Soln) 2.5 mg PRN TID PRN 10/26/18 11:30 Albuterol/ Ipratropium (Duoneb) 3 ml RTQID 10/26/18 12:00 11/04/18 07:44 3 ML Aspirin (Children'S Aspirin) 81 mg DAILYWBKFT 10/26/18 14:30 11/03/18 09:33 81 MG Atorvastatin Calcium (Lipitor) 80 mg QHS 11/01/18 21:00 11/03/18 21:00 80 MG Azithromycin (Zithromax) 250 mg DAILY 10/27/18 09:00 UNV Baclofen (Lioresal) 10 mg TID 10/26/18 14:00 11/03/18 21:01 10 MG Budesonide (Pulmicort) 0.5 mg RTBID 10/30/18 08:00 11/04/18 07:44 0.5 MG Ceftriaxone Sodium (Rocephin) 1 gm 1X ONCE 10/25/18 19:00 10/25/18 19:02 DC 10/25/18 20:24 1 GM Diazepam (Valium) 2 mg TID 10/26/18 14:00 11/03/18 21:00 2 MG Diltiazem HCl (Cardizem) 60 mg DAILY07 10/27/18 07:00 11/02/18 08:26 60 MG Docusate Sodium (Enemeez) 283 mg PRN DAILY PRN 10/30/18 10:30 Enoxaparin Sodium (Lovenox 40mg Syringe) 40 mg Q24H 11/02/18 11:00 11/03/18 09:35 40 MG Estradiol (Climara Weekly) 0.1 mg WEEKLY 11/02/18 09:00 11/02/18 08:40 0.1 MG Furosemide (Lasix) 40 mg 1X ONCE 11/03/18 21:00 11/03/18 21:01 DC 11/03/18 21:00 40 MG Hydralazine HCl (Apresoline Inj) 10 mg PRN Q6HRS PRN 11/03/18 14:00 11/03/18 14:29 10 MG Levetiracetam (Keppra) 750 mg BID 10/26/18 12:00 11/03/18 21:02 750 MG Meropenem 500 mg/ Sodium Chloride 50 ml @ 100 mls/hr Q6HRS 11/01/18 12:00 11/04/18 05:52 100 MLS/HR Methylprednisolone Sodium Succinate (SOLU-Medrol 125MG VIAL) 125 mg 1X ONCE 10/25/18 17:30 10/25/18 17:31 DC 10/25/18 19:04 125 MG Metoprolol Tartrate (Lopressor Vial) 10 mg PRN Q6HRS PRN 11/03/18 17:00 Metoprolol Tartrate (Lopressor) 25 mg BID 10/26/18 12:00 11/03/18 21:00 25 MG Non-Formulary Medication 1 ea PRN TID PRN 10/27/18 11:00 11/01/18 08:33 1 EA Non-Formulary Medication (Cran/C/B.coag/ Fos/L.acid/L.rha (Probiotic Plus & Cranberry Cap)) 1 each BID 10/26/18 21:00 UNV Non-Formulary Medication (Levalbuterol Hcl (Xopenex)) 1 vial TID 10/26/18 14:00 UNV Non-Formulary Medication (Levalbuterol Hcl ) 0.63 mg TID 10/26/18 14:00 UNV Non-Formulary Medication (Modafinil (Provigil)) 200 mg DAILY 10/27/18 11:30 11/02/18 08:27 200 MG Non-Formulary Medication (Norethindrone (Karishma)) 0.35 mg DAILY 10/27/18 09:00 UNV Non-Formulary Medication (Tiotropium [place] (Spiriva)) 18 mcg DAILY 10/27/18 09:00 UNV Nystatin (Nystop) 1 parag PRN BID PRN 10/26/18 11:15 10/27/18 10:35 DC Ondansetron HCl (Zofran) 4 mg PRN Q8HRS PRN 10/25/18 20:15 10/26/18 20:14 DC Paroxetine HCl (Paxil) 10 mg DAILY 10/26/18 12:00 11/03/18 09:33 10 MG Piperacillin Sod/ Tazobactam Sod (Zosyn Per Pharmacy) 1 each PRN DAILY PRN 10/26/18 07:15 Cancel Piperacillin Sod/ Tazobactam Sod 3.375 gm/Sodium Chloride 50 ml @ 100 mls/hr Q6HRS 10/26/18 08:00 11/01/18 09:30 DC 11/01/18 06:01 100 MLS/HR Scopolamine (Transderm-Scop) 1 patch Q3DAYS 10/27/18 09:00 11/02/18 08:26 1 PATCH Sodium Monofluorophosphate (Fleet Adult) 133 ml DAILY PRN 10/26/18 11:15 11/01/18 12:29 133 ML Sodium Chloride 1,000 ml @ 126 mls/hr Q7H57M 10/25/18 20:07 10/26/18 07:12 DC Vancomycin HCl (Vanco Per Pharmacy) 1 each PRN DAILY PRN 10/26/18 07:15 11/01/18 09:17 DC 10/31/18 17:49 1 EACH Vancomycin HCl (Vancomycin Trough Level) 1 each 1X ONCE 11/02/18 07:30 11/02/18 07:30 DC Vancomycin HCl 1.25 gm/Sodium Chloride 250 ml @ 167 mls/hr Q12H 10/28/18 22:00 10/29/18 22:05 DC 10/29/18 08:52 167 MLS/HR Vancomycin HCl 1.75 gm/Sodium Chloride 500 ml @ 250 mls/hr 1X ONCE 10/26/18 08:00 10/26/18 09:59 DC 10/26/18 09:25 250 MLS/HR Vancomycin HCl 750 mg/Sodium Chloride 250 ml @ 250 mls/hr Q12H 10/31/18 20:00 11/01/18 09:14 DC 11/01/18 08:27 250 MLS/HR Vancomycin HCl 1 gm/Sodium Chloride 250 ml @ 250 mls/hr Q12H 10/30/18 05:00 10/31/18 17:34 DC 10/31/18 06:07 250 MLS/HR Labs: Lab Laboratory Tests Test 11/03/18 08:10 11/03/18 12:40 11/04/18 05:50 Sodium Level 146 mmol/L (136-145) Potassium Level 4.3 mmol/L (3.5-5.1) Chloride Level 106 mmol/L (98-107) Carbon Dioxide Level 34 mmol/L (21-32) Anion Gap 6 (6-14) Blood Urea Nitrogen 20 mg/dL (7-20) Creatinine 0.5 mg/dL (0.6-1.0) Estimated GFR (Cockcroft-Gault) 123.1 Glucose Level 126 mg/dL (70-99) Calcium Level 9.0 mg/dL (8.5-10.1) O2 Saturation 93 % (92-99) Arterial Blood pH 7.36 (7.35-7.45) Arterial Blood pCO2 at Patient Temp 63 mmHg (35-46) Arterial Blood pO2 at Patient Temp 75 mmHg (65-108) Arterial Blood HCO3 35 mmol/L (21-28) Arterial Blood Base Excess 8 mmol/L (-3-3) FiO2 60 ts White Blood Count 5.4 x10^3/uL (4.0-11.0) Red Blood Count 3.37 x10^6/uL (3.50-5.40) Hemoglobin 10.2 g/dL (12.0-15.5) Hematocrit 31.4 % (36.0-47.0) Mean Corpuscular Volume 93 fL (79-100) Mean Corpuscular Hemoglobin 30 pg (25-35) Mean Corpuscular Hemoglobin Concent 33 g/dL (31-37) Red Cell Distribution Width 15.4 % (11.5-14.5) Platelet Count 326 x10^3/uL (140-400) Neutrophils (%) (Auto) 76 % (31-73) Lymphocytes (%) (Auto) 12 % (24-48) Monocytes (%) (Auto) 7 % (0-9) Eosinophils (%) (Auto) 4 % (0-3) Basophils (%) (Auto) 1 % (0-3) Neutrophils # (Auto) 4.1 x10^3uL (1.8-7.7) Lymphocytes # (Auto) 0.7 x10^3/uL (1.0-4.8) Monocytes # (Auto) 0.4 x10^3/uL (0.0-1.1) Eosinophils # (Auto) 0.2 x10^3/uL (0.0-0.7) Basophils # (Auto) 0.0 x10^3/uL (0.0-0.2) Micro RUN DATE: 10/28/18 PAGE 1 RUN TIME: 1711 [facility] [address] [place] [address] Judson Roy M.D., Lion Trainer PATIENT: MINNIE BENZ ACCT: [id number] LOC: 1 WEST ICU U : [id number] AGE/SX: 68/F ROOM: 112 REG : 10/25/[address]: RIGOBERTO VORA III DO : 1950 BED: 1 DIS : STATUS: ADM IN TLOC: SPEC #: [id number] ALVARO: 10/25/18 STATUS: TREV TORRES #: [id number] RECD: 10/25/[address] [facility] [address]: COLBY IVERSON MD SOURCE: [facility] CATH ENTR: 10/25/18 [facility] DR: JESSICA PAINTING MD [facility]: STR CATH ORDERED: URINE CULTURE Procedure Result URINE CULTURE Final Final report URINE CULTURE RES 1 Final Comment Pseudomonas aeruginosa Greater than 100,000 colony forming units per mL URINE CULTURE RES 2 Final Enterococcus faecalis 25,000-50,000 colony forming units per mL ANTIMICROBIAL SUSCEPTIBILITY Final Comment S = Susceptible; I = Intermediate; R = Resistant P = Positive; N = Negative MICS are expressed in micrograms per mL Antibiotic RSLT#1 RSLT#2 RSLT#3 RSLT#4 Amikacin S =16 Cefepime I =16 Ceftazidime S =4 Ciprofloxacin R>=4 R>=8 Gentamicin I =8 Imipenem S =4 Levofloxacin R>=8 R>=8 Meropenem S =1 Nitrofurantoin S<=16 Penicillin R =16 Piperacillin S =32 Tetracycline R>=16 Ticarcillin R>=128 Tobramycin S<=1 Vancomycin S =1 Performed at: DA - [facility] [place] [address], [place], [place] [id number] Steam [employer] Press Tender: RELL Marques MD, Phone: [phone] RUN DATE: 10/30/18 PAGE 1 RUN TIME: 0814 [facility] [address] [place] [address] Judson Roy M.D., Lion Trainer PATIENT: MINNIE BENZ ACCT: [id number] LOC: 1 [facility] U : [id number] AGE/SX: 68/F ROOM: 112 REG : 10/25/[address]: RIGOBERTO VORA III, DO : 1950 BED: 1 DIS : STATUS: ADM IN TLOC: SPEC #: [id number] ALVARO: 10/27/18 STATUS: RES REQ #: [id number] RECD: 10/27/[address]: DARWIN PITTS MD SOURCE: [facility] SITE ENTR: 10/27/18-1120 [facility] DR: ANIKET LUNA MD [facility]: RIGOBERTO VORA III, AMAN U MD KURTZ,JESSICA FRASER,BEVERLY Jones MD ORDERED: ANAER/AEROB/GS Procedure Result ANAEROBIC-AEROBIC CULTURE PENDING ANAEROBIC RES 1 PENDING AEROBIC CULT Final Final report AEROBIC RES 1 Final Comment Pseudomonas aeruginosa 1+ ANTIMICROBIAL SUSCEPTIBILITY Final Comment S = Susceptible; I = Intermediate; R = Resistant P = Positive; N = Negative MICS are expressed in micrograms per mL Antibiotic RSLT#1 RSLT#2 RSLT#3 RSLT#4 Amikacin S<=2 Cefepime R>=64 Ceftazidime R>=64 Ciprofloxacin R>=4 Gentamicin S<=1 Imipenem I =8 Levofloxacin R>=8 Meropenem S =4 Piperacillin R>=128 Ticarcillin R>=128 Tobramycin S<=1 CONTINUED ON NEXT PAGE RUN DATE: 10/30/18 PAGE 2 RUN TIME: 1510 [facility] [address] [place] [address] Judson Roy M.D., Lion Trainer SPEC: [id number] PATIENT: MINNIE BENZ [id number] ( Continued) Procedure Result GRAM STAIN Final Final report GRAM STAIN RES 1 Final No organisms seen GRAM STAIN RES 2 Final Comment No white blood cells seen. Performed at: [facility] [address], [place], [place] [id number] [employer] Press Tender: RELL Marques MD, Phone: [phone] Objective: Assessment: Fever, resolved Lactic acidosis and sepsis.resolved Suspected aspiration BC + 1/2 G + cocci - MRSE 10/25. Likely contaminant UTI w/ PSA and Enterococcus (PCN- R). SPC last changed 10/25 Trach site infection with growth of PSA, 10/25 Pleural effusions s/p bilat thoracentesis on 10/28. cultures neg to date Hypercapnic respiratory failure. Advanced multiple scleroses. h/o seizures on Keppra h/o MRSA, VRE, c. diff Plan: Plan of Care cont merrem since 11/01 was on IV Vanc and zosyn prior f/u labs and cults Supportive care D/w ANIKA ROMERO MD Nov 04, 2018 07:56
--- NOTE | 2018-11-04 08:25 | PDOC ---
PROGRESS NOTES Chief Complaint Chief Complaint Acute on chronic respiratory failure Bilateral pleural effusion Advanced multiple sclerosis tracheostomy history of seizures PEG tube baclofen pump colostomy Suprapubic catheter S.p thoracentesis > 1L Plan: Continue with present AVAPS continuously at night. abg reviewed, T-SHIELD DURING DAY Continue broad-spectrum antibiotics ABG and CXR in morning Elevate hob Cont enteral nutrition She would need chronic nocturnal vent support . NIF -15 .will ask behavioral health case manager to arrange Trilogy at home History of Present Illness History of Present Illness discussed with , DC plan, will need trach shield during day, concern about valve for speaking, though with her continued ventilatory requirements this is difficult Needs BIPAP at home based on NIF -15, had been discussed, necessary to continue at home cont the IV abx - merrem based on culture data Opening eyes more to verbal today. Mumbling. No complaints. KUB shows no obstruction. BP up a bit today. Had CO2 retention when taken off vent greater than 4 hours the past 2 days, on pressure support again Plan: Pleural fluid without growth. Staph epidermidis blood culture positive, trach with pseudomonas, Urine with enterococcus and pseudomonas F/u ID recs Needs continuous ventilatory, BIPAP support such as trilogy on discharge. Training tomorrow morning planned Vitals Vitals Vital Signs Date Time Temp Pulse Resp B/P (MAP) Pulse Ox O2 Delivery O2 Flow Rate FiO2 11/04/18 07:45 99 BiPAP/CPAP 11/04/18 06:27 79 97/55 11/04/18 06:04 13 11/04/18 04:00 10.0 11/04/18 04:00 98.6 98.6 Physical Exam Physical Exam GENERAL: Appears comfortable HEENT: JOHN, Oral cavity clear NECK: Tracheostomy in place. LUNGS: Bilateral decreased breath sounds. HEART: S1 and S2 regular. No gallop or murmur. ABDOMEN: Obese, distended, soft and nontender. PEG tube and SPC in place EXTREMITIES: Generalized edema. No cyanosis NEUROLOGICAL: Sleeping, quadriplegia SKIN: No rash RUE-PICC clean General: Alert, Cooperative, No acute distress Heart: Regular rate (SR), Other (distnat heart sounds) Lungs: Other (decrease bs) Abdomen: Soft Extremities: No cyanosis, Other (generalized edema trace to 1+) Skin: Other (suprapubic cath, PEG tube in place, trach site intact) Labs LABS Laboratory Tests Test 11/03/18 12:40 11/04/18 05:50 O2 Saturation 93 % (92-99) Arterial Blood pH 7.36 (7.35-7.45) Arterial Blood pCO2 at Patient Temp 63 mmHg (35-46) Arterial Blood pO2 at Patient Temp 75 mmHg (65-108) Arterial Blood HCO3 35 mmol/L (21-28) Arterial Blood Base Excess 8 mmol/L (-3-3) FiO2 60 ts White Blood Count 5.4 x10^3/uL (4.0-11.0) Red Blood Count 3.37 x10^6/uL (3.50-5.40) Hemoglobin 10.2 g/dL (12.0-15.5) Hematocrit 31.4 % (36.0-47.0) Mean Corpuscular Volume 93 fL (79-100) Mean Corpuscular Hemoglobin 30 pg (25-35) Mean Corpuscular Hemoglobin Concent 33 g/dL (31-37) Red Cell Distribution Width 15.4 % (11.5-14.5) Platelet Count 326 x10^3/uL (140-400) Neutrophils (%) (Auto) 76 % (31-73) Lymphocytes (%) (Auto) 12 % (24-48) Monocytes (%) (Auto) 7 % (0-9) Eosinophils (%) (Auto) 4 % (0-3) Basophils (%) (Auto) 1 % (0-3) Neutrophils # (Auto) 4.1 x10^3uL (1.8-7.7) Lymphocytes # (Auto) 0.7 x10^3/uL (1.0-4.8) Monocytes # (Auto) 0.4 x10^3/uL (0.0-1.1) Eosinophils # (Auto) 0.2 x10^3/uL (0.0-0.7) Basophils # (Auto) 0.0 x10^3/uL (0.0-0.2) Assessment and Plan Assessmemt and Plan Problems Medical Problems: (1) Hypercapnic respiratory failure Status: Acute Comment Review of Relevant I have reviewed the following items lcuila (where applicable) has been applied. Labs Laboratory Tests Test 11/03/18 08:10 11/03/18 12:40 11/04/18 05:50 Sodium Level 146 mmol/L (136-145) Potassium Level 4.3 mmol/L (3.5-5.1) Chloride Level 106 mmol/L (98-107) Carbon Dioxide Level 34 mmol/L (21-32) Anion Gap 6 (6-14) Blood Urea Nitrogen 20 mg/dL (7-20) Creatinine 0.5 mg/dL (0.6-1.0) Estimated GFR (Cockcroft-Gault) 123.1 Glucose Level 126 mg/dL (70-99) Calcium Level 9.0 mg/dL (8.5-10.1) O2 Saturation 93 % (92-99) Arterial Blood pH 7.36 (7.35-7.45) Arterial Blood pCO2 at Patient Temp 63 mmHg (35-46) Arterial Blood pO2 at Patient Temp 75 mmHg (65-108) Arterial Blood HCO3 35 mmol/L (21-28) Arterial Blood Base Excess 8 mmol/L (-3-3) FiO2 60 ts White Blood Count 5.4 x10^3/uL (4.0-11.0) Red Blood Count 3.37 x10^6/uL (3.50-5.40) Hemoglobin 10.2 g/dL (12.0-15.5) Hematocrit 31.4 % (36.0-47.0) Mean Corpuscular Volume 93 fL (79-100) Mean Corpuscular Hemoglobin 30 pg (25-35) Mean Corpuscular Hemoglobin Concent 33 g/dL (31-37) Red Cell Distribution Width 15.4 % (11.5-14.5) Platelet Count 326 x10^3/uL (140-400) Neutrophils (%) (Auto) 76 % (31-73) Lymphocytes (%) (Auto) 12 % (24-48) Monocytes (%) (Auto) 7 % (0-9) Eosinophils (%) (Auto) 4 % (0-3) Basophils (%) (Auto) 1 % (0-3) Neutrophils # (Auto) 4.1 x10^3uL (1.8-7.7) Lymphocytes # (Auto) 0.7 x10^3/uL (1.0-4.8) Monocytes # (Auto) 0.4 x10^3/uL (0.0-1.1) Eosinophils # (Auto) 0.2 x10^3/uL (0.0-0.7) Basophils # (Auto) 0.0 x10^3/uL (0.0-0.2) Laboratory Tests Test 11/03/18 12:40 11/04/18 05:50 O2 Saturation 93 % (92-99) Arterial Blood pH 7.36 (7.35-7.45) Arterial Blood pCO2 at Patient Temp 63 mmHg (35-46) Arterial Blood pO2 at Patient Temp 75 mmHg (65-108) Arterial Blood HCO3 35 mmol/L (21-28) Arterial Blood Base Excess 8 mmol/L (-3-3) FiO2 60 ts White Blood Count 5.4 x10^3/uL (4.0-11.0) Red Blood Count 3.37 x10^6/uL (3.50-5.40) Hemoglobin 10.2 g/dL (12.0-15.5) Hematocrit 31.4 % (36.0-47.0) Mean Corpuscular Volume 93 fL (79-100) Mean Corpuscular Hemoglobin 30 pg (25-35) Mean Corpuscular Hemoglobin Concent 33 g/dL (31-37) Red Cell Distribution Width 15.4 % (11.5-14.5) Platelet Count 326 x10^3/uL (140-400) Neutrophils (%) (Auto) 76 % (31-73) Lymphocytes (%) (Auto) 12 % (24-48) Monocytes (%) (Auto) 7 % (0-9) Eosinophils (%) (Auto) 4 % (0-3) Basophils (%) (Auto) 1 % (0-3) Neutrophils # (Auto) 4.1 x10^3uL (1.8-7.7) Lymphocytes # (Auto) 0.7 x10^3/uL (1.0-4.8) Monocytes # (Auto) 0.4 x10^3/uL (0.0-1.1) Eosinophils # (Auto) 0.2 x10^3/uL (0.0-0.7) Basophils # (Auto) 0.0 x10^3/uL (0.0-0.2) Microbiology 10/26/18 Blood Culture - Final, Complete NO GROWTH AFTER 5 DAYS 10/27/18 Anaerobic/Aerobic Culture - Final, Complete 10/27/18 Anaerobic Culture Result 1 (NANDO) - Final, Complete 10/27/18 Aerobic Culture - Final, Complete 10/27/18 Aerobic Culture Result 1 (NANDO) - Final, Complete 10/27/18 Gram Stain - Final, Complete 10/27/18 Gram Stain Result 1 (NANDO) - Final, Complete 10/27/18 Gram Stain Result 2 (NANDO) - Final, Complete 11/02/18 - Final, Resulted 11/02/18 - Final, Resulted 11/02/18 - Final, Resulted 11/02/18 Gram Stain Evaluation - Final, Resulted 11/02/18 Sputum Culture, Resulted Pending 10/25/18 Urine Culture - Final, Complete 10/25/18 Urine Culture Result 1 (NANDO) - Final, Complete 10/25/18 Urine Culture Result 2 (NANDO) - Final, Complete 10/25/18 Antimicrobic Susceptibility - Final, Complete 10/27/18 Anaerobic/Aerobic Culture - Final, Complete 10/27/18 Anaerobic Culture Result 1 (NANDO) - Final, Complete 10/27/18 Aerobic Culture - Final, Complete 10/27/18 Aerobic Culture Result 1 (NANDO) - Final, Complete 10/27/18 Antimicrobic Susceptibility - Final, Complete 10/27/18 Gram Stain - Final, Complete 10/27/18 Gram Stain Result 1 (NANDO) - Final, Complete 10/27/18 Gram Stain Result 2 (NANDO) - Final, Complete Medications Current Medications Sodium Chloride 1,000 ml @ 1,000 mls/hr Q1H IV Last administered on 10/25/18 19:04; Start 10/25/18 at 17:28; Stop 10/25/18 at 18:27; Status DC Albuterol/ Ipratropium (Duoneb) 3 ml 1X ONCE NEB Last administered on at 17:53; Start 10/25/18 at 17:30; Stop 10/25/18 at 17:31; Status DC Methylprednisolone Sodium Succinate (SOLU-Medrol 125MG VIAL) 125 mg 1X ONCE IV Last administered on 10/25/18at 19:04; Start 10/25/18 at 17:30; Stop 10/25/18 at 17:31; Status DC Ceftriaxone Sodium (Rocephin) 1 gm 1X ONCE IVP Last administered on 10/25/18at 20:24; Start 10/25/18 at 19:00; Stop 10/25/18 at 19:02; Status DC Ondansetron HCl (Zofran) 4 mg PRN Q8HRS PRN IV NAUSEA/VOMITING; Start 10/25/18 at 20:15; Stop 10/26/18 at 20:14; Status DC Sodium Chloride 1,000 ml @ 126 mls/hr Q7H57M IV ; Start 10/25/18 at 20:07; Stop 10/26/18 at 07:12; Status DC Acetaminophen (Tylenol) 650 mg 1X ONCE PEG Last administered on 10/26/18at 04:59 ; Start 10/26/18 at 04:30; Stop 10/26/18 at 04:32; Status DC Piperacillin Sod/ Tazobactam Sod (Zosyn Per Pharmacy) 1 each PRN DAILY PRN MC SEE COMMENTS; Start 10/26/18 at 07:15; Status Cancel Vancomycin HCl (Vanco Per Pharmacy) 1 each PRN DAILY PRN MC SEE COMMENTS Last administered on 10/31/18at 17:49; Start 10/26/18 at 07:15; Stop 11/01/18 at 09:17 ; Status DC Piperacillin Sod/ Tazobactam Sod 3.375 gm/Sodium Chloride 50 ml @ 100 mls/hr Q6HRS IV Last administered on 11/01/18at 06:01; Start 10/26/18 at 08:00; Stop at 09:30; Status DC Vancomycin HCl 1.75 gm/Sodium Chloride 500 ml @ 250 mls/hr 1X ONCE IV Last administered on 10/26/18at 09:25; Start 10/26/18 at 08:00; Stop 10/26/18 at 09:59; Status DC Azithromycin (Zithromax) 250 mg DAILY PO ; Start 10/27/18 at 09:00; Status UNV Baclofen (Lioresal) 10 mg TID PO Last administered on 11/03/18at 21:01; Start at 14:00 Diazepam (Valium) 2 mg TID PO Last administered on 11/03/18at 21:00; Start at 14:00 Diltiazem HCl (Cardizem) 30 mg QHS PO Last administered on 11/03/18at 21:01; Start 10/26/18 at 21:00 Estradiol (Climara Weekly) 1 mg WEEKLY TD ; Start 11/02/18 at 09:00; Stop at 09:00; Status DC Levetiracetam (Keppra) 750 mg BID PO Last administered on 11/03/18at 21:02; Start 10/26/18 at 12:00 Metoprolol Tartrate (Lopressor) 25 mg BID PO Last administered on 11/03/18at 21: 00; Start 10/26/18 at 12:00 Sodium Monofluorophosphate (Fleet Adult) 133 ml DAILY PRN RC CONSTIPATION, 2ND CHOICE CT Last administered on 11/01/18at 12:29; Start 10/26/18 at 11:15 Nystatin (Nystop) 1 parag PRN BID PRN TP RASH; Start 10/26/18 at 11:15; Stop 10/27 at 10:35; Status DC Acetaminophen (Tylenol) 500 mg PRN Q6HRS PRN PO MILD PAIN / TEMP; Start at 11:30 Non-Formulary Medication (Cran/C/B.coag/ Fos/L.acid/L.rha (Probiotic Plus & Cranberry Cap)) 1 each BID PO ; Start 10/26/18 at 21:00; Status UNV Diltiazem HCl (Cardizem) 60 mg DAILY16 PO Last administered on 11/03/18at 13:30 ; Start 10/26/18 at 16:00 Diltiazem HCl (Cardizem) 60 mg DAILY07 PO Last administered on 11/02/18at 08:26 ; Start 10/27/18 at 07:00 Non-Formulary Medication (Levalbuterol Hcl ) 0.63 mg TID IH ; Start 10/26/18 at 14:00; Status UNV Non-Formulary Medication (Levalbuterol Hcl (Xopenex)) 1 vial TID NEB ; Start 10/26/18 at 14:00; Status UNV Non-Formulary Medication (Modafinil (Provigil)) 200 mg DAILY PO Last administered on 11/02/18at 08:27; Start 10/27/18 at 11:30 Non-Formulary Medication (Norethindrone (Karishma)) 0.35 mg DAILY PO ; Start 10/27 at 09:00; Status UNV Paroxetine HCl (Paxil) 10 mg DAILY PO Last administered on 11/03/18 09:33; Start 10/26/18 at 12:00 Scopolamine (Transderm-Scop) 1 patch Q3DAYS TD Last administered on 11/02/18at 08:26; Start 10/27/18 at 09:00 Non-Formulary Medication (Tiotropium Angwin (Spiriva)) 18 mcg DAILY IH ; Start 10/27/18 at 09:00; Status UNV Albuterol/ Ipratropium (Duoneb) 3 ml RTQID NEB Last administered on 11/04/18at 07:44; Start 10/26/18 at 12:00 Albuterol Sulfate (Ventolin Neb Soln) 2.5 mg PRN TID PRN NEB SHORTNESS OF BREATH; Start 10/26/18 at 11:30 Vancomycin HCl 1 gm/Sodium Chloride 250 ml @ 250 mls/hr Q24H IV Last administered on 10/28/18at 09:51; Start 10/27/18 at 09:30; Stop 10/28/18 at 12:00 ; Status DC Vancomycin HCl (Vancomycin Trough Level) 1 each 1X ONCE MC Last administered on 10/28/18at 09:00; Start 10/28/18 at 09:00; Stop 10/28/18 at 09:01; Status DC Aspirin (Children'S Aspirin) 81 mg DAILYWBKFT PO Last administered on at 09:33; Start 10/26/18 at 14:30 Non-Formulary Medication 1 ea PRN TID PRN PO APPLY TO AFFECTED AREA Last administered on 11/01/18 08:33; Start 10/27/18 at 11:00 Vancomycin HCl 1.25 gm/Sodium Chloride 250 ml @ 167 mls/hr Q12H IV Last administered on 10/29/18at 08:52; Start 10/28/18 at 22:00; Stop 10/29/18 at 22:05 ; Status DC Vancomycin HCl (Vancomycin Trough Level) 1 each 1X ONCE MC Last administered on 10/29/18at 21:30; Start 10/29/18 at 21:30; Stop 10/29/18 at 21:31; Status DC Vancomycin HCl 1 gm/Sodium Chloride 250 ml @ 250 mls/hr Q12H IV Last administered on 10/31/18at 06:07; Start 10/30/18 at 05:00; Stop 10/31/18 at 17:34 ; Status DC Vancomycin HCl (Vancomycin Trough Level) 1 each 1X ONCE MC Last administered on 10/31/18at 17:30; Start 10/31/18 at 17:30; Stop 10/31/18 at 17:34; Status DC Budesonide (Pulmicort) 0.5 mg RTBID NEB Last administered on 11/04/18at 07:44; Start 10/30/18 at 08:00 Docusate Sodium (Enemeez) [address] CONSTIPATION; Start 10/30/18 at 10:30 Vancomycin HCl 750 mg/Sodium Chloride 250 ml @ 250 mls/hr Q12H IV Last administered on 11/01/18at 08:27; Start 10/31/18 at 20:00; Stop 11/01/18 at 09:14 ; Status DC Vancomycin HCl (Vancomycin Trough Level) 1 each 1X ONCE MC ; Start 11/02/18 at 07:30; Stop 11/02/18 at 07:30; Status DC Meropenem 500 mg/ Sodium Chloride 50 ml @ 100 mls/hr Q6HRS IV Last administered on 11/04/18at 05:52; Start 11/01/18 at 12:00 Atorvastatin Calcium (Lipitor) 80 mg QHS PO Last administered on 11/03/18at 21: 00; Start 11/01/18 at 21:00 Estradiol (Climara Weekly) 0.1 mg WEEKLY TD Last administered on 11/02/18at 08: 40; Start 11/02/18 at 09:00 Enoxaparin Sodium (Lovenox 40mg Syringe) 40 mg Q24H SQ Last administered on at 09:35; Start 11/02/18 at 11:00 Hydralazine HCl (Apresoline Inj) 10 mg PRN Q6HRS PRN IVP ELEVATED BP, SEE COMMENTS Last administered on 11/03/18at 14:29; Start 11/03/18 at 14:00 Metoprolol Tartrate (Lopressor Vial) 10 mg PRN Q6HRS PRN IVP HYPERTENSION, SEE COMMENTS; Start 11/03/18 at 17:00 Furosemide (Lasix) 40 mg 1X ONCE IVP Last administered on 11/03/18at 21:00; Start 11/03/18 at 21:00; Stop 11/03/18 at 21:01; Status DC Active Scripts Active Reported Atorvastatin Calcium 80 Mg Tablet 80 Mg PO HS Cardizem Tablet (Diltiazem Hcl) 30 Mg Tablet 30 Mg PO HS PRN Enema Ready To Use (Na Phos,M-B/Na Phos,Di-Ba) 133 Ml Enema 133 Ml RC Acetaminophen 500 Mg Tablet 1 Tab PO Q6HRS Probiotic Plus & Cranberry Cap (Cran/C/B.coag/Fos/L.acid/L.rha) 1 Each Capsule 1 Each PO BID Azithromycin Tablet (Azithromycin) 250 Mg Tablet 250 Mg PO DAILY Estradiol Transdermal Patch (Estradiol) 1 Each Patch.tdwk 1 Each TD BID WEEKLY Next dose 06/30/17 Karishma (Norethindrone) 0.35 Mg Tablet 0.35 Mg PO DAILY Keppra (Levetiracetam) 500 Mg Tablet 750 Mg PO BID Cardizem Tablet (Diltiazem Hcl) 60 Mg Tablet 60 Mg PO DAILY16 Metoprolol Tartrate 25 Mg Tablet 1 Tab PO BID Xopenex (Levalbuterol Hcl) 0.63 Mg/3 Ml Vial.neb 1 Vial NEB TID Valium (Diazepam) 2 Mg Tablet 2 Mg PO TID Transderm-Scop (Scopolamine) 1 Each Patch.td72 1 Each TD Q3DAYS Indication: secretions Next dose: 06/30/17 am Nystop (Nystatin) 60 Gm Powder 60 Gm TP PRN Indication: rash NExt dose: as needed Levalbuterol Hcl 0.63 Mg/3 Ml Vial.neb 0.63 Mg IH TID Spiriva (Tiotropium Angwin) 18 Mcg Cap.w.dev 18 Mcg IH DAILY Diltiazem Hcl Tablet (Diltiazem Hcl) 60 Mg Tablet 60 Mg PO DAILY07 Provigil (Modafinil) 200 Mg Tablet 200 Mg PO DAILY Paxil (Paroxetine Hcl) 10 Mg/5 Ml Oral.susp 10 Mg PO DAILY Baclofen 10 Mg Tablet 10 Mg PO TID Vitals/I & O Vital Sign - Last 24 Hours 11/03/18 11/03/18 11/03/18 11/03/18 08:34 09:00 09:34 10:00 Pulse 90 100 98 Resp 18 18 B/P (MAP) 140/73 (95) 140/73 164/66 (98) Pulse Ox 92 98 100 O2 Delivery Tracheal Collar Tracheal Collar Tracheal Collar O2 Flow Rate 10.0 11/03/18 11/03/18 11/03/18 11/03/18 11:00 12:00 12:00 12:00 Temp 98.2 98.2 Pulse 92 92 Resp 18 B/P (MAP) 155/78 (103) 155/76 (102) Pulse Ox 92 92 O2 Delivery Tracheal Collar Trach Collar Tracheal Collar O2 Flow Rate 10.0 10.0 11/03/18 11/03/18 11/03/18 11/03/18 12:41 13:00 13:30 14:00 Pulse 109 107 109 Resp 18 18 B/P (MAP) 179/84 (115) 179/84 168/73 (104) Pulse Ox 96 92 92 O2 Delivery Tracheal Collar Tracheal Collar Tracheal Collar O2 Flow Rate 10.0 11/03/18 11/03/18 11/03/18 11/03/18 14:29 15:00 16:00 16:00 Pulse 107 109 109 Resp 18 18 B/P (MAP) 179/84 149/84 (105) 181/79 (113) Pulse Ox 92 92 O2 Delivery Tracheal Collar Tracheal Collar Trach Collar 11/03/18 11/03/18 11/03/18 11/03/18 16:20 16:21 17:00 17:35 Pulse 111 Resp 18 B/P (MAP) 105/55 (72) Pulse Ox 95 92 95 O2 Delivery BiPAP/CPAP Tracheal Collar BiPAP/CPAP O2 Flow Rate 10.0 11/03/18 11/03/18 11/03/18 11/03/18 18:00 19:00 19:51 20:00 Pulse 97 102 Resp 18 15 B/P (MAP) 133/65 (87) 145/76 (99) Pulse Ox 92 98 99 O2 Delivery Tracheal Collar Tracheal Collar BiPAP/CPAP O2 Flow Rate 10.0 11/03/18 11/03/18 11/03/18 11/03/18 20:00 20:00 21:00 21:00 Temp 98.7 98.7 Pulse 97 97 92 Resp 18 14 B/P (MAP) 145/76 (99) 152/75 140/68 (92) Pulse Ox 100 100 O2 Delivery Trach Collar Tracheal Collar Tracheal Collar O2 Flow Rate 10.0 11/03/18 11/03/18 11/03/18 11/03/18 21:01 22:00 22:58 23:00 Pulse 97 96 92 Resp 14 14 B/P (MAP) 152/75 152/77 (102) 139/76 (97) Pulse Ox 100 99 100 O2 Delivery Tracheal Collar BiPAP/CPAP Tracheal Collar 11/03/18 11/03/18 11/04/18 11/04/18 23:59 23:59 01:00 02:00 Pulse 86 76 Resp 14 13 B/P (MAP) 141/75 (97) 102/56 (71) Pulse Ox 98 98 O2 Delivery Trach Collar Tracheal Collar Tracheal Collar O2 Flow Rate 10.0 10.0 11/04/18 11/04/18 11/04/18 11/04/18 02:34 03:00 04:00 04:00 Temp 98.6 98.6 Pulse 81 80 Resp 13 13 B/P (MAP) 107/62 (77) 108/57 (74) Pulse Ox 99 98 99 O2 Delivery BiPAP/CPAP Tracheal Collar Trach Collar Tracheal Collar O2 Flow Rate 10.0 11/04/18 11/04/18 11/04/18 11/04/18 04:00 04:56 05:00 06:04 Pulse 84 82 Resp 12 13 B/P (MAP) 106/53 (70) 97/55 (69) Pulse Ox 99 98 99 O2 Delivery BiPAP/CPAP Tracheal Collar Tracheal Collar O2 Flow Rate 10.0 11/04/18 11/04/18 06:27 07:45 Pulse 79 B/P (MAP) 97/55 Pulse Ox 99 O2 Delivery BiPAP/CPAP Intake and Output 11/03/18 11/03/18 11/04/18 15:00 23:00 07:00 Intake Total 100 ml 100 ml 350 ml Output Total 500 ml 200 ml 1275 ml Balance -400 ml -100 ml -925 ml FLAQUITO LIRA MD Nov 04, 2018 08:25
[2018-11-04] MEDS: levETIRAcetam 250 MG TABLET PO SCH ×2 (08:59→21:01)
[2018-11-04] MEDS: diazePAM 2 MG TABLET PO SCH ×3 (08:59→21:01)
[2018-11-04] MEDS: ASPIRIN CHEWABLE 81 MG TABLET. PO SCH (08:59)
[2018-11-04] MEDS: PARoxetine 10 MG TABLET PO SCH (08:59)
[2018-11-04] MEDS: METOPROLOL TART IMMED RELEASE 25 MG TABLET. PO SCH ×2 (08:59→21:08)
[2018-11-04] MEDS: ENOXAPARIN 40 MG/0.4 ML SYRINGE. SQ SCH (09:00)
[2018-11-04] MEDS: BACLOFEN 10 MG TABLET. PO SCH ×3 (09:02→21:01)
--- NOTE | 2018-11-04 10:01 | PDOC ---
PULMONARY PROGRESS NOTES Subjective on AVAPS Vitals Vital Signs Date Time Temp Pulse Resp B/P (MAP) Pulse Ox O2 Delivery O2 Flow Rate FiO2 11/04/18 09:29 10.0 11/04/18 09:11 98 BiPAP/CPAP 11/04/18 08:59 90 132/64 11/04/18 06:04 13 11/04/18 04:00 98.6 98.6 Comments as mentioned as above other sys otherwise neg ROS: No Nausea, No Chest Pain General: No acute distress, Lethargic HEENT: Other (nc at perrl nose throat clear, neck, trach site ok no lad, no thyromegaly) Lungs: Other (decrease bs) Cardiovascular: S1, S2 Abdomen: Soft, Non-tender, Other (no mass) Neuro Exam: Alert Extremities: Other (edema) Skin: Warm Labs Laboratory Tests Test 11/03/18 08:10 11/03/18 12:40 11/04/18 05:50 Sodium Level 146 mmol/L (136-145) Potassium Level 4.3 mmol/L (3.5-5.1) Chloride Level 106 mmol/L (98-107) Carbon Dioxide Level 34 mmol/L (21-32) Anion Gap 6 (6-14) Blood Urea Nitrogen 20 mg/dL (7-20) Creatinine 0.5 mg/dL (0.6-1.0) Estimated GFR (Cockcroft-Gault) 123.1 Glucose Level 126 mg/dL (70-99) Calcium Level 9.0 mg/dL (8.5-10.1) O2 Saturation 93 % (92-99) Arterial Blood pH 7.36 (7.35-7.45) Arterial Blood pCO2 at Patient Temp 63 mmHg (35-46) Arterial Blood pO2 at Patient Temp 75 mmHg (65-108) Arterial Blood HCO3 35 mmol/L (21-28) Arterial Blood Base Excess 8 mmol/L (-3-3) FiO2 60 ts White Blood Count 5.4 x10^3/uL (4.0-11.0) Red Blood Count 3.37 x10^6/uL (3.50-5.40) Hemoglobin 10.2 g/dL (12.0-15.5) Hematocrit 31.4 % (36.0-47.0) Mean Corpuscular Volume 93 fL (79-100) Mean Corpuscular Hemoglobin 30 pg (25-35) Mean Corpuscular Hemoglobin Concent 33 g/dL (31-37) Red Cell Distribution Width 15.4 % (11.5-14.5) Platelet Count 326 x10^3/uL (140-400) Neutrophils (%) (Auto) 76 % (31-73) Lymphocytes (%) (Auto) 12 % (24-48) Monocytes (%) (Auto) 7 % (0-9) Eosinophils (%) (Auto) 4 % (0-3) Basophils (%) (Auto) 1 % (0-3) Neutrophils # (Auto) 4.1 x10^3uL (1.8-7.7) Lymphocytes # (Auto) 0.7 x10^3/uL (1.0-4.8) Monocytes # (Auto) 0.4 x10^3/uL (0.0-1.1) Eosinophils # (Auto) 0.2 x10^3/uL (0.0-0.7) Basophils # (Auto) 0.0 x10^3/uL (0.0-0.2) Laboratory Tests Test 11/03/18 12:40 11/04/18 05:50 O2 Saturation 93 % (92-99) Arterial Blood pH 7.36 (7.35-7.45) Arterial Blood pCO2 at Patient Temp 63 mmHg (35-46) Arterial Blood pO2 at Patient Temp 75 mmHg (65-108) Arterial Blood HCO3 35 mmol/L (21-28) Arterial Blood Base Excess 8 mmol/L (-3-3) FiO2 60 ts White Blood Count 5.4 x10^3/uL (4.0-11.0) Red Blood Count 3.37 x10^6/uL (3.50-5.40) Hemoglobin 10.2 g/dL (12.0-15.5) Hematocrit 31.4 % (36.0-47.0) Mean Corpuscular Volume 93 fL (79-100) Mean Corpuscular Hemoglobin 30 pg (25-35) Mean Corpuscular Hemoglobin Concent 33 g/dL (31-37) Red Cell Distribution Width 15.4 % (11.5-14.5) Platelet Count 326 x10^3/uL (140-400) Neutrophils (%) (Auto) 76 % (31-73) Lymphocytes (%) (Auto) 12 % (24-48) Monocytes (%) (Auto) 7 % (0-9) Eosinophils (%) (Auto) 4 % (0-3) Basophils (%) (Auto) 1 % (0-3) Neutrophils # (Auto) 4.1 x10^3uL (1.8-7.7) Lymphocytes # (Auto) 0.7 x10^3/uL (1.0-4.8) Monocytes # (Auto) 0.4 x10^3/uL (0.0-1.1) Eosinophils # (Auto) 0.2 x10^3/uL (0.0-0.7) Basophils # (Auto) 0.0 x10^3/uL (0.0-0.2) Medications Active Scripts Medications Dose Route/Sig Max Daily Dose Days Date Category Dose Instructions Cardizem Tablet (Diltiazem Hcl) 30 Mg Tablet 30 Mg PO HS PRN 10/26/18 Reported Enema Ready To Use (Na Phos,M-B/Na Phos,Di-Ba) 133 Ml Enema 133 Ml RC 01/30/17 Reported Acetaminophen 500 Mg Tablet 1 Tab PO Q6HRS 01/30/17 Reported Probiotic Plus & Cranberry Cap (Cran/C/B.coag/Fos/L.acid/L.rha) 1 Each Capsule 1 Each PO BID 01/30/17 Reported Azithromycin Tablet (Azithromycin) 250 Mg Tablet 250 Mg PO DAILY 01/30/17 Reported Estradiol Transdermal Patch (Estradiol) 1 Each Patch.tdwk 1 Each TD BID WEEKLY 01/30/17 Reported Next dose 06/30/17 Karishma (Norethindrone) 0.35 Mg Tablet 0.35 Mg PO DAILY 01/30/17 Reported Keppra (Levetiracetam) 500 Mg Tablet 750 Mg PO BID 01/30/17 Reported Cardizem Tablet (Diltiazem Hcl) 60 Mg Tablet 60 Mg PO DAILY16 06/12/15 Reported Metoprolol Tartrate 25 Mg Tablet 1 Tab PO BID 12/28/14 Reported Xopenex (Levalbuterol Hcl) 0.63 Mg/3 Ml Vial.neb 1 Vial NEB TID 12/27/14 Reported Valium (Diazepam) 2 Mg Tablet 2 Mg PO TID 10/11/13 Reported Transderm-Scop (Scopolamine) 1 Each Patch.td72 1 Each TD Q3DAYS 07/28/13 Reported Indication: secretions Next dose: 06/30/17 am Nystop (Nystatin) 60 Gm Powder 60 Gm TP PRN 07/28/13 Reported Indication: rash NExt dose: as needed Levalbuterol Hcl 0.63 Mg/3 Ml Vial.neb 0.63 Mg IH TID 07/28/13 Reported Spiriva (Tiotropium [place]) 18 Mcg Cap.w.dev 18 Mcg IH DAILY 07/28/13 Reported Diltiazem Hcl Tablet (Diltiazem Hcl) 60 Mg Tablet 60 Mg PO DAILY07 07/28/13 Reported Provigil (Modafinil) 200 Mg Tablet 200 Mg PO DAILY 07/28/13 Reported Paxil (Paroxetine Hcl) 10 Mg/5 Ml Oral.susp 10 Mg PO DAILY 07/28/13 Reported Baclofen 10 Mg Tablet 10 Mg PO TID 07/28/13 Reported Comments cxr reviewed, 11/03 moderate bilateral effusions, no change URINE CULTURE Final Final report URINE CULTURE RES 1 Final Comment Pseudomonas aeruginosa Greater than 100,000 colony forming units per mL URINE CULTURE RES 2 Final Enterococcus faecalis 25,000-50,000 colony forming units per mL ANTIMICROBIAL SUSCEPTIBILITY Final Comment S = Susceptible; I = Intermediate; R = Resistant P = Positive; N = Negative MICS are expressed in micrograms per mL Antibiotic RSLT#1 RSLT#2 RSLT#3 RSLT#4 Amikacin S =16 Cefepime I =16 Ceftazidime S =4 Ciprofloxacin R>=4 R>=8 Gentamicin I =8 Imipenem S =4 Levofloxacin R>=8 R>=8 Meropenem S =1 Nitrofurantoin S<=16 Penicillin R =16 Piperacillin S =32 Tetracycline R>=16 Ticarcillin R>=128 Tobramycin S<=1 Vancomycin S =1 Performed at: - [facility], [place], [place] [id number] Dental Sales Representative: RELL Marques MD, Phone: [phone] RUN DATE: 10/30/18 PAGE 1 RUN TIME: 4167 [facility] [address] [place] [address] Judson Roy M.D., Hvac Instructor PATIENT: MINNIE BENZ ACCT: [id number] LOC: 1 [facility] U : [id number] AGE/SX: 68/F ROOM: 112 REG : 10/25/[address]: RIGOBERTO VORA III, DO : 1950 BED: 1 DIS : STATUS: ADM IN TLOC: SPEC #: [id number] ALVARO: 10/27/18 STATUS: RES REQ #: [id number] RECD: 10/27/[address]: DARWIN PITTS MD SOURCE: [facility] SITE ENTR: 10/27/[address] [facility] [address]: ANIKET LUNA MD [facility]: RIGOBERTO VORA III, AMAN U MD KURTZ, ANN E MD MCSWEYN,BEVERLY Jones MD ORDERED: ANAER/AEROB/GS Procedure Result ANAEROBIC-AEROBIC CULTURE PENDING ANAEROBIC RES 1 PENDING AEROBIC CULT Final Final report AEROBIC RES 1 Final Comment Pseudomonas aeruginosa 1+ ANTIMICROBIAL SUSCEPTIBILITY Final Comment S = Susceptible; I = Intermediate; R = Resistant P = Positive; N = Negative MICS are expressed in micrograms per mL Antibiotic RSLT#1 RSLT#2 RSLT#3 RSLT#4 Amikacin S<=2 Cefepime R>=64 Ceftazidime R>=64 Ciprofloxacin R>=4 Gentamicin S<=1 Imipenem I =8 Levofloxacin R>=8 Meropenem S =4 Piperacillin R>=128 Ticarcillin R>=128 Tobramycin S<=1 Impression . 1. Acute on chronic hypercapnic and hypoxic respiratory failure secondary to multifactorial etiologies including sepsis , effusions 2. The patient with severe/advanced multiple sclerosis with chronic respiratory failure. 3. The patient with prior thoracentesis and prior multiple bronchoscopies. now with increasing bilateral effusions, s/p thoracentesis bilateral 4. Fever resolved 5. BC + 1/2 G + cocci - MRSE 10/25. 6. UTI w/ PSA and Enterococcus (PCN- R). SPC last changed 10/25 7. Trach site infection with growth of PSA, 10/25 Plan . 1. Continue with present AVAPS continuously at night. abg reviewed, T-SHIELD DURING DAY as tolerated. 2. Continue broad-spectrum antibiotics per ID 3. CXR reviewed. Moderate effusions, marginal O2 . will repeat right thoracentesis today 4. s/p bilateral thoracentesis. transudate, cxs neg, 5. elevate hob 6. d/w . 7. enteral nutrition 8. She would need chronic nocturnal vent support . NIF -15 . case management rn to arrange Triligy at home 9. BD, discussed w rn, rt/ / WORK ORDER CLERK ANA HOLLIDAY MD Nov 04, 2018 10:01
--- NOTE | 2018-11-04 13:42 | NUR ---
Wound Care Wound care follow up for buttock wounds. L Ischium is resolved, R Ischium has stage II PU still present. Cleansed area, pt had BM, applied A&D ointment to buttocks. Turned pt to right side with heels floated. Pt on ICU bed, recommend P500 if pt transferred. WC will continue to follow for possible changes.
--- NOTE | 2018-11-04 18:27 | NUR ---
Bedside thoracentesis preformed by Dr. Charles. Patient tolerated procedure well, with no signs of distress. 600 ml of fluid retrieved. Patient to meet with trilogy rep in am and begin trial. social work setting up education with family and rep.
[2018-11-04] MEDS: ATORVASTATIN CALCIUM 40 MG TABLET. PO SCH (21:01)
[2018-11-05] VITALS (24 sets, daily range): BP systolic 113–175; BP diastolic 51–71
[2018-11-05] MEDS: MEROPENEM 500 MG in IV NORMAL SALINE 50ML 50 ML IV SCH ×5 (00:07→23:41)
[2018-11-05 06:01] LABS: BASO % 1 % (0-3); EOS # 0.2 x10^3/uL (0.0-0.7); EOS % 3 % (0-3); HEMATOCRIT 31.8 % (36.0-47.0); HEMOGLOBIN 10.4 g/dL (12.0-15.5); LYMPH # 0.6 x10^3/uL (1.0-4.8); LYMPH % 10 % (24-48); MEAN CORPUSCULAR HEMOGLOBIN 30 pg (25-35); MEAN CORPUSCULAR HGB CONC 33 g/dL (31-37); MEAN CORPUSCULAR VOLUME 93 fL (79-100); MONO # 0.3 x10^3/uL (0.0-1.1); MONO % 6 % (0-9); NEUT # 4.6 x10^3uL (1.8-7.7); NEUT % 80 % (31-73); PLATELET COUNT 368 x10^3/uL (140-400); RED BLOOD COUNT 3.42 x10^6/uL (3.50-5.40); RED CELL DISTRIBUTION WIDTH 15.1 % (11.5-14.5); WHITE BLOOD COUNT 5.8 x10^3/uL (4.0-11.0)
--- NOTE | 2018-11-05 07:21 | PDOC ---
Infectious Disease Note Subjective: Subjective No fevers comfortable D/W RN Vital Signs: Vital Signs Vital Signs Date Time Temp Pulse Resp B/P (MAP) Pulse Ox O2 Delivery O2 Flow Rate FiO2 11/05/18 06:00 96 14 137/60 (85) 99 BiPAP/CPAP 11/05/18 04:00 98.7 98.7 11/04/18 18:00 10.0 Physical Exam: PHYSICAL EXAM GENERAL: Appears comfortable HEENT: anicteric, no thrush NECK: Tracheostomy in place. LUNGS: Bilateral decreased breath sounds. HEART: S1 and S2 regular. No gallop or murmur. ABDOMEN: Obese, distended, soft and nontender. PEG tube and SPC in place EXTREMITIES: Generalized edema. No cyanosis NEUROLOGICAL: Sleeping, quadriplegia SKIN: No rash RUE-PICC clean Medications: Inpatient Meds: Current Medications Medications (Trade) Dose Ordered Sig/Lidia Start Time Stop Time Status Last Admin Dose Admin Acetaminophen (Tylenol) 500 mg PRN Q6HRS PRN 10/26/18 11:30 Albuterol Sulfate (Ventolin Neb Soln) 2.5 mg PRN TID PRN 10/26/18 11:30 Albuterol/ Ipratropium (Duoneb) 3 ml RTQID 10/26/18 12:00 11/04/18 20:20 3 ML Aspirin (Children'S Aspirin) 81 mg DAILYWBKFT 10/26/18 14:30 11/04/18 08:59 81 MG Atorvastatin Calcium (Lipitor) 80 mg QHS 11/01/18 21:00 11/04/18 21:01 80 MG Azithromycin (Zithromax) 250 mg DAILY 10/27/18 09:00 UNV Baclofen (Lioresal) 10 mg TID 10/26/18 14:00 11/04/18 21:01 10 MG Budesonide (Pulmicort) 0.5 mg RTBID 10/30/18 08:00 11/04/18 20:20 0.5 MG Ceftriaxone Sodium (Rocephin) 1 gm 1X ONCE 10/25/18 19:00 10/25/18 19:02 DC 10/25/18 20:24 1 GM Diazepam (Valium) 2 mg TID 10/26/18 14:00 11/04/18 21:01 2 MG Diltiazem HCl (Cardizem) 60 mg DAILY07 10/27/18 07:00 11/02/18 08:26 60 MG Docusate Sodium (Enemeez) 283 mg PRN DAILY PRN 10/30/18 10:30 Enoxaparin Sodium (Lovenox 40mg Syringe) 40 mg Q24H 11/02/18 11:00 11/04/18 09:00 40 MG Estradiol (Climara Weekly) 0.1 mg WEEKLY 11/02/18 09:00 11/02/18 08:40 0.1 MG Furosemide (Lasix) 40 mg 1X ONCE 11/03/18 21:00 11/03/18 21:01 DC 11/03/18 21:00 40 MG Hydralazine HCl (Apresoline Inj) 10 mg PRN Q6HRS PRN 11/03/18 14:00 11/03/18 14:29 10 MG Levetiracetam (Keppra) 750 mg BID 10/26/18 12:00 11/04/18 21:01 750 MG Meropenem 500 mg/ Sodium Chloride 50 ml @ 100 mls/hr Q6HRS 11/01/18 12:00 11/05/18 05:50 100 MLS/HR Methylprednisolone Sodium Succinate (SOLU-Medrol 125MG VIAL) 125 mg 1X ONCE 10/25/18 17:30 10/25/18 17:31 DC 10/25/18 19:04 125 MG Metoprolol Tartrate (Lopressor Vial) 10 mg PRN Q6HRS PRN 11/03/18 17:00 Metoprolol Tartrate (Lopressor) 25 mg BID 10/26/18 12:00 11/04/18 21:08 25 MG Non-Formulary Medication 1 ea PRN TID PRN 10/27/18 11:00 11/01/18 08:33 1 EA Non-Formulary Medication (Cran/C/B.coag/ Fos/L.acid/L.rha (Probiotic Plus & Cranberry Cap)) 1 each BID 10/26/18 21:00 UNV Non-Formulary Medication (Levalbuterol Hcl (Xopenex)) 1 vial TID 10/26/18 14:00 UNV Non-Formulary Medication (Levalbuterol Hcl ) 0.63 mg TID 10/26/18 14:00 UNV Non-Formulary Medication (Modafinil (Provigil)) 200 mg DAILY 10/27/18 11:30 11/02/18 08:27 200 MG Non-Formulary Medication (Norethindrone (Karishma)) 0.35 mg DAILY 10/27/18 09:00 UNV Non-Formulary Medication (Tiotropium [place] (Spiriva)) 18 mcg DAILY 10/27/18 09:00 UNV Nystatin (Nystop) 1 parag PRN BID PRN 10/26/18 11:15 10/27/18 10:35 DC Ondansetron HCl (Zofran) 4 mg PRN Q8HRS PRN 10/25/18 20:15 10/26/18 20:14 DC Paroxetine HCl (Paxil) 10 mg DAILY 10/26/18 12:00 11/04/18 08:59 10 MG Piperacillin Sod/ Tazobactam Sod (Zosyn Per Pharmacy) 1 each PRN DAILY PRN 10/26/18 07:15 Cancel Piperacillin Sod/ Tazobactam Sod 3.375 gm/Sodium Chloride 50 ml @ 100 mls/hr Q6HRS 10/26/18 08:00 11/01/18 09:30 DC 11/01/18 06:01 100 MLS/HR Scopolamine (Transderm-Scop) 1 patch Q3DAYS 10/27/18 09:00 11/02/18 08:26 1 PATCH Sodium Monofluorophosphate (Fleet Adult) 133 ml DAILY PRN 10/26/18 11:15 11/01/18 12:29 133 ML Sodium Chloride 1,000 ml @ 126 mls/hr Q7H57M 10/25/18 20:07 10/26/18 07:12 DC Vancomycin HCl (Vanco Per Pharmacy) 1 each PRN DAILY PRN 10/26/18 07:15 11/01/18 09:17 DC 10/31/18 17:49 1 EACH Vancomycin HCl (Vancomycin Trough Level) 1 each 1X ONCE 11/02/18 07:30 11/02/18 07:30 DC Vancomycin HCl 1.25 gm/Sodium Chloride 250 ml @ 167 mls/hr Q12H 10/28/18 22:00 10/29/18 22:05 DC 10/29/18 08:52 167 MLS/HR Vancomycin HCl 1.75 gm/Sodium Chloride 500 ml @ 250 mls/hr 1X ONCE 10/26/18 08:00 10/26/18 09:59 DC 10/26/18 09:25 250 MLS/HR Vancomycin HCl 750 mg/Sodium Chloride 250 ml @ 250 mls/hr Q12H 10/31/18 20:00 11/01/18 09:14 DC 11/01/18 08:27 250 MLS/HR Vancomycin HCl 1 gm/Sodium Chloride 250 ml @ 250 mls/hr Q12H 10/30/18 05:00 10/31/18 17:34 DC 10/31/18 06:07 250 MLS/HR Vitamin A/Vitamin D (Vitamin A & D Ointment) 1 parag PRN Q1HR PRN 11/04/18 13:45 Labs: Lab Laboratory Tests Test 11/05/18 05:50 White Blood Count 5.8 x10^3/uL (4.0-11.0) Red Blood Count 3.42 x10^6/uL (3.50-5.40) Hemoglobin 10.4 g/dL (12.0-15.5) Hematocrit 31.8 % (36.0-47.0) Mean Corpuscular Volume 93 fL (79-100) Mean Corpuscular Hemoglobin 30 pg (25-35) Mean Corpuscular Hemoglobin Concent 33 g/dL (31-37) Red Cell Distribution Width 15.1 % (11.5-14.5) Platelet Count 368 x10^3/uL (140-400) Neutrophils (%) (Auto) 80 % (31-73) Lymphocytes (%) (Auto) 10 % (24-48) Monocytes (%) (Auto) 6 % (0-9) Eosinophils (%) (Auto) 3 % (0-3) Basophils (%) (Auto) 1 % (0-3) Neutrophils # (Auto) 4.6 x10^3uL (1.8-7.7) Lymphocytes # (Auto) 0.6 x10^3/uL (1.0-4.8) Monocytes # (Auto) 0.3 x10^3/uL (0.0-1.1) Eosinophils # (Auto) 0.2 x10^3/uL (0.0-0.7) Basophils # (Auto) 0.0 x10^3/uL (0.0-0.2) Micro RUN DATE: 10/28/18 PAGE 1 RUN TIME: 4152 [facility] [address] [place] [address] Judson Roy M.D., Fire Hydrant Mechanic PATIENT: MINNIE BENZ ACCT: [id number] LOC: 1 [facility] U : [id number] AGE/SX: 68/F ROOM: 112 REG : 10/25/[address]: RIGOBERTO VORA III, DO : 1950 BED: 1 DIS : STATUS: ADM IN TLOC: SPEC #: [id number] ALVARO: 10/25/18 STATUS: COMP REQ #: [id number] RECD: 10/25/[address]: COLBY IVERSON MD SOURCE: STRA CATH ENTR: 10/25/18 [facility] DR: JESSICA PAINTING MD [facility]: STR CATH ORDERED: URINE CULTURE Procedure Result URINE CULTURE Final Final report URINE CULTURE RES 1 Final Comment Pseudomonas aeruginosa Greater than 100,000 colony forming units per mL URINE CULTURE RES 2 Final Enterococcus faecalis 25,000-50,000 colony forming units per mL ANTIMICROBIAL SUSCEPTIBILITY Final Comment S = Susceptible; I = Intermediate; R = Resistant P = Positive; N = Negative MICS are expressed in micrograms per mL Antibiotic RSLT#1 RSLT#2 RSLT#3 RSLT#4 Amikacin S =16 Cefepime I =16 Ceftazidime S =4 Ciprofloxacin R>=4 R>=8 Gentamicin I =8 Imipenem S =4 Levofloxacin R>=8 R>=8 Meropenem S =1 Nitrofurantoin S<=16 Penicillin R =16 Piperacillin S =32 Tetracycline R>=16 Ticarcillin R>=128 Tobramycin S<=1 Vancomycin S =1 Performed at: DA - [facility], [place], [place] [id number] Banking Pin Adjuster: RELL Marques MD, Phone: [phone] RUN DATE: 10/30/18 PAGE 1 RUN TIME: 6235 [facility] [address] [place] [address] Judson Roy M.D., Fire Hydrant Mechanic PATIENT: MINNIE BENZ ACCT: [id number] LOC: 1 [facility] U : [id number] AGE/SX: 68/F ROOM: 112 REG : 10/25/[address]: RIGOBERTO VORA III, DO : 1950 BED: 1 DIS : STATUS: ADM IN TLOC: SPEC #: [id number] ALVARO: 10/27/18 STATUS: RES REQ #: [id number] RECD: 10/27/[address]: DARWIN PITTS MD SOURCE: [facility] ENTR: 10/27/18 [facility] DR: ANIKET LUNA MD SPDESC: RIGOBERTO VORA III, AMAN U MD KURTZ,BEVERLY BRAVO MD, MD ORDERED: NGA/AERRUIZ/JEANINE Procedure Result ANAEROBIC-AEROBIC CULTURE PENDING ANAEROBIC RES 1 PENDING AEROBIC CULT Final Final report AEROBIC RES 1 Final Comment Pseudomonas aeruginosa 1+ ANTIMICROBIAL SUSCEPTIBILITY Final Comment S = Susceptible; I = Intermediate; R = Resistant P = Positive; N = Negative MICS are expressed in micrograms per mL Antibiotic RSLT#1 RSLT#2 RSLT#3 RSLT#4 Amikacin S<=2 Cefepime R>=64 Ceftazidime R>=64 Ciprofloxacin R>=4 Gentamicin S<=1 Imipenem I =8 Levofloxacin R>=8 Meropenem S =4 Piperacillin R>=128 Ticarcillin R>=128 Tobramycin S<=1 CONTINUED ON NEXT PAGE RUN DATE: 10/30/18 PAGE 2 RUN TIME: 1510 [facility] [address] [place] [address] Judson Roy M.D., Fire Hydrant Mechanic SPEC: [id number] PATIENT: MINNIE BENZ [id number] ( Continued) Procedure Result GRAM STAIN Final Final report GRAM STAIN RES 1 Final No organisms seen GRAM STAIN RES 2 Final Comment No white blood cells seen. Performed at: - [facility] [id number] [facility] [address], [place], [place] [id number] Banking Pin Adjuster: RELL Marques MD, Phone: [phone] Objective: Assessment: Fever, resolved Lactic acidosis and sepsis.resolved Suspected aspiration BC + 1/2 G + cocci - MRSE 10/25. Likely contaminant UTI w/ PSA and Enterococcus (PCN- R). SPC last changed 10/25 Trach site infection with growth of PSA, 10/25 Pleural effusions s/p bilat thoracentesis on 10/28. cultures neg to date Hypercapnic respiratory failure. Advanced multiple scleroses. h/o seizures on Keppra h/o MRSA, VRE, c. diff Plan: Plan of Care cont merrem since 11/01 was on IV Vanc and zosyn prior f/u labs and cults Supportive care D/w ANIKA ROMERO MD Nov 05, 2018 07:21
[2018-11-05] MEDS: IPRATRPIUM/ALBUTEROL 0.5/2.5MG 3 ML NEBU. NEB SCH ×4 (07:47→20:08)
[2018-11-05] MEDS: BUDESONIDE 0.5 MG/2 ML NEBU. NEB SCH ×2 (07:47→20:08)
--- NOTE | 2018-11-05 08:27 | RAD ---
Ultrasound-guided right-sided thoracentesis 11/05/2018 8:22 AM Indication: RIGHT PLEURAL EFFUSION Procedure: Informed consent was obtained. A timeout procedure was performed. Sonographic evaluation of the right chest was performed demonstrating moderate pleural effusion. The right posterior chest was prepped and draped in sterile fashion. 1% lidocaine without epinephrine was administered for local anesthesia. Real-time ultrasonographic guidance was used in passing a 5 [place] [employer] catheter into the right pleural space. 600 cc of serosanguineous pleural fluid was removed. Samples of fluid were sent to the lab for further evaluation per ordering physician request. The catheter was removed and pressure held to achieve hemostasis. A sterile dressing was applied. No immediate complications were identified. The patient tolerated the procedure well. Impression: Right sided ultrasound-guided thoracentesis
--- NOTE | 2018-11-05 08:35 | PDOC ---
SUBJECTIVE Subjective Pt resting comfortably, nursing has no concerns for Urology OBJECTIVE Objective Physical Exam: General appearance:Alert, follows examiner with eyes. Nods "yes" and "no" Head: Normocephalic, without obvious abnormality Eyes: conjunctivae/corneas clear. PERRL, EOM's intact. Fundi benign Lungs: Regular respirations with trach and machine assistance. Abdomen: + Sp tubing in place draining clear yellow urine. Device in good working order Vital Signs Vital Signs Date Time Temp Pulse Resp B/P (MAP) Pulse Ox O2 Delivery O2 Flow Rate FiO2 11/05/18 07:47 100 BiPAP/CPAP 11/05/18 06:00 96 14 137/60 (85) 99 BiPAP/CPAP 11/05/18 05:28 98 BiPAP/CPAP 11/05/18 05:00 93 17 127/53 (77) 99 BiPAP/CPAP 11/05/18 04:00 98.7 88 14 152/60 (90) 99 BiPAP/CPAP 98.7 11/05/18 04:00 Bi-pap 11/05/18 03:34 98 BiPAP/CPAP 11/05/18 03:00 87 16 140/63 (88) 98 BiPAP/CPAP 11/05/18 02:00 78 14 119/59 (79) 98 BiPAP/CPAP 11/05/18 01:20 98 BiPAP/CPAP 11/05/18 01:00 82 14 121/70 (87) 99 BiPAP/CPAP 11/05/18 00:00 98.3 77 14 113/61 (78) 99 BiPAP/CPAP 98.3 11/05/18 00:00 Bi-pap 11/04/18 23:28 98 BiPAP/CPAP 11/04/18 23:00 70 13 90/50 (63) 98 BiPAP/CPAP 11/04/18 22:00 75 13 100/54 (69) 98 BiPAP/CPAP 11/04/18 21:08 88 140/72 11/04/18 21:08 88 140/72 11/04/18 21:00 88 14 140/72 (94) 98 BiPAP/CPAP 11/04/18 20:05 96 BiPAP/CPAP 11/04/18 20:00 Bi-pap 11/04/18 20:00 96.7 70 13 82/51 (61) 98 BiPAP/CPAP 96.7 11/04/18 19:00 72 13 93/49 (64) 99 BiPAP/CPAP 11/04/18 18:00 73 97/58 (71) 99 10.0 11/04/18 17:49 99 BiPAP/CPAP 11/04/18 17:00 80 13 94/58 (70) 99 Tracheal Collar 11/04/18 16:00 80 13 89/52 (64) 99 Tracheal Collar 11/04/18 16:00 10.0 11/04/18 16:00 Trach Collar 10.0 11/04/18 15:38 80 93/48 11/04/18 15:13 98 BiPAP/CPAP 11/04/18 15:00 82 13 93/48 (63) 99 Tracheal Collar 11/04/18 14:00 76 13 86/60 (69) 99 Tracheal Collar 11/04/18 13:32 100 BiPAP/CPAP 11/04/18 13:00 70 13 103/58 (73) 99 Tracheal Collar 11/04/18 12:47 10.0 11/04/18 12:00 78 13 109/55 (73) 99 Tracheal Collar 11/04/18 12:00 Trach Collar 10.0 11/04/18 11:40 100 BiPAP/CPAP 11/04/18 11:00 82 13 115/55 (75) 99 Tracheal Collar 11/04/18 10:00 76 13 105/55 (72) 99 Tracheal Collar 11/04/18 09:29 10.0 11/04/18 09:11 98 BiPAP/CPAP 11/04/18 09:00 82 13 103/55 (71) 99 Tracheal Collar 11/04/18 08:59 90 132/64 I & O Intake and Output 11/05/18 07:00 Intake Total 350 ml Output Total 1800 ml Balance -1450 ml IV Total 50 ml Tube Feeding 300 ml Output Urine Total 1800 ml PHYSICAL EXAM Physical Exam Physical Exam: General appearance:Alert, follows examiner with eyes. Nods "yes" and "no" Head: Normocephalic, without obvious abnormality Eyes: conjunctivae/corneas clear. PERRL, EOM's intact. Fundi benign Lungs: Regular respirations with trach and machine assistance. Abdomen: + Sp tubing in place draining clear yellow urine. Device in good working order ASSESSMENT/PLAN Assessment/Plan SP tubing is due 11/15/18 per q 3 week schedule since it was last changed on . If she continues to develop infections, consider q 2 week sp tubing changes. Nursing to continue local hygiene and maintenance of SP site daily. A follow up appointment has been arranged for her with Dr. [place] of [facility] at [facility] on 11/19/18 at 1120 am. Appointment card given to patient this past Thursday. Will follow peripherally over the weekend but please call with concerns over the weekend and we will happily address them. Discussed above with attending RN. COMMENT Lab Laboratory Tests Test 11/05/18 05:50 White Blood Count 5.8 x10^3/uL (4.0-11.0) Red Blood Count 3.42 x10^6/uL (3.50-5.40) Hemoglobin 10.4 g/dL (12.0-15.5) Hematocrit 31.8 % (36.0-47.0) Mean Corpuscular Volume 93 fL (79-100) Mean Corpuscular Hemoglobin 30 pg (25-35) Mean Corpuscular Hemoglobin Concent 33 g/dL (31-37) Red Cell Distribution Width 15.1 % (11.5-14.5) Platelet Count 368 x10^3/uL (140-400) Neutrophils (%) (Auto) 80 % (31-73) Lymphocytes (%) (Auto) 10 % (24-48) Monocytes (%) (Auto) 6 % (0-9) Eosinophils (%) (Auto) 3 % (0-3) Basophils (%) (Auto) 1 % (0-3) Neutrophils # (Auto) 4.6 x10^3uL (1.8-7.7) Lymphocytes # (Auto) 0.6 x10^3/uL (1.0-4.8) Monocytes # (Auto) 0.3 x10^3/uL (0.0-1.1) Eosinophils # (Auto) 0.2 x10^3/uL (0.0-0.7) Basophils # (Auto) 0.0 x10^3/uL (0.0-0.2) FREDY LATIF APRN Nov 05, 2018 08:35
[2018-11-05] MEDS: ASPIRIN CHEWABLE 81 MG TABLET. PO SCH (09:23)
[2018-11-05] MEDS: PARoxetine 10 MG TABLET PO SCH (09:23)
[2018-11-05] MEDS: METOPROLOL TART IMMED RELEASE 25 MG TABLET. PO SCH ×2 (09:24→21:40)
[2018-11-05] MEDS: levETIRAcetam 250 MG TABLET PO SCH ×2 (09:26→21:38)
[2018-11-05] MEDS: VITS A & D/LANOLIN TOPICAL OINTMENT 56GM TUBE. TP PRN (09:27)
[2018-11-05] MEDS: dilTIAZem HCL 30 MG TABLET PO SCH ×3 (09:30→21:39)
[2018-11-05] MEDS: diazePAM 2 MG TABLET PO SCH ×3 (09:38→21:38)
[2018-11-05] MEDS: SCOPOLAMINE 1.5MG PATCH. TD SCH (09:39)
[2018-11-05] MEDS: BACLOFEN 10 MG TABLET. PO SCH ×3 (09:39→21:38)
--- NOTE | 2018-11-05 09:51 | PDOC ---
PROGRESS NOTES Chief Complaint Chief Complaint Acute on chronic respiratory failure Bilateral pleural effusion Advanced multiple sclerosis tracheostomy history of seizures PEG tube baclofen pump colostomy Suprapubic catheter S.p thoracentesis > 1L Plan: Continue with present AVAPS continuously at night. abg reviewed, T-SHIELD DURING DAY Continue broad-spectrum antibiotics ABG and CXR in morning Elevate hob Cont enteral nutrition She would need chronic nocturnal vent support . NIF -15 .will ask case planner to arrange Trilogy at home History of Present Illness History of Present Illness Discussed with , DC plan, will need trach shield during day, concern about valve for speaking, though with her continued ventilatory requirements this is difficult Needs BIPAP at home based on NIF -15, had been discussed, necessary to continue at home cont the IV abx - merrem based on culture data Opening eyes more to verbal today. Mumbling. No complaints. S/p thora 600 cc total. BP up a bit today. Had CO2 retention when taken off vent greater than 4 hours the past 2 days, on pressure support again with trach shield during day and vent at night as ultimate plan Plan: Pleural fluid without growth. Staph epidermidis blood culture positive, trach with pseudomonas, Urine with enterococcus and pseudomonas F/u ID recs Needs continuous ventilatory, BIPAP support such as trilogy on discharge. Training this afternoon with home walkthrough planned Vitals Vitals Vital Signs Date Time Temp Pulse Resp B/P (MAP) Pulse Ox O2 Delivery O2 Flow Rate FiO2 11/05/18 09:30 123/56 11/05/18 07:47 100 BiPAP/CPAP 11/05/18 06:00 96 14 11/05/18 04:00 98.7 98.7 11/04/18 18:00 10.0 Physical Exam Physical Exam GENERAL: Appears comfortable HEENT: anicteric, no thrush NECK: Tracheostomy in place. LUNGS: Bilateral decreased breath sounds. HEART: S1 and S2 regular. No gallop or murmur. ABDOMEN: Obese, distended, soft and nontender. PEG tube and SPC in place EXTREMITIES: Generalized edema. No cyanosis NEUROLOGICAL: Sleeping, quadriplegia SKIN: No rash RUE-PICC clean General: Alert, Cooperative, No acute distress Heart: Regular rate (SR), Other (distnat heart sounds) Lungs: Other (decrease bs) Abdomen: Soft Extremities: No cyanosis, Other (generalized edema trace to 1+) Skin: Other (suprapubic cath, PEG tube in place, trach site intact) Labs LABS Laboratory Tests Test 11/05/18 05:50 White Blood Count 5.8 x10^3/uL (4.0-11.0) Red Blood Count 3.42 x10^6/uL (3.50-5.40) Hemoglobin 10.4 g/dL (12.0-15.5) Hematocrit 31.8 % (36.0-47.0) Mean Corpuscular Volume 93 fL (79-100) Mean Corpuscular Hemoglobin 30 pg (25-35) Mean Corpuscular Hemoglobin Concent 33 g/dL (31-37) Red Cell Distribution Width 15.1 % (11.5-14.5) Platelet Count 368 x10^3/uL (140-400) Neutrophils (%) (Auto) 80 % (31-73) Lymphocytes (%) (Auto) 10 % (24-48) Monocytes (%) (Auto) 6 % (0-9) Eosinophils (%) (Auto) 3 % (0-3) Basophils (%) (Auto) 1 % (0-3) Neutrophils # (Auto) 4.6 x10^3uL (1.8-7.7) Lymphocytes # (Auto) 0.6 x10^3/uL (1.0-4.8) Monocytes # (Auto) 0.3 x10^3/uL (0.0-1.1) Eosinophils # (Auto) 0.2 x10^3/uL (0.0-0.7) Basophils # (Auto) 0.0 x10^3/uL (0.0-0.2) Assessment and Plan Assessmemt and Plan Problems Medical Problems: (1) Hypercapnic respiratory failure Status: Acute Comment Review of Relevant I have reviewed the following items lucila (where applicable) has been applied. Labs Laboratory Tests Test 11/03/18 12:40 11/04/18 05:50 11/05/18 05:50 O2 Saturation 93 % (92-99) Arterial Blood pH 7.36 (7.35-7.45) Arterial Blood pCO2 at Patient Temp 63 mmHg (35-46) Arterial Blood pO2 at Patient Temp 75 mmHg (65-108) Arterial Blood HCO3 35 mmol/L (21-28) Arterial Blood Base Excess 8 mmol/L (-3-3) FiO2 60 ts White Blood Count 5.4 x10^3/uL (4.0-11.0) 5.8 x10^3/uL (4.0-11.0) Red Blood Count 3.37 x10^6/uL (3.50-5.40) 3.42 x10^6/uL (3.50-5.40) Hemoglobin 10.2 g/dL (12.0-15.5) 10.4 g/dL (12.0-15.5) Hematocrit 31.4 % (36.0-47.0) 31.8 % (36.0-47.0) Mean Corpuscular Volume 93 fL (79-100) 93 fL (79-100) Mean Corpuscular Hemoglobin 30 pg (25-35) 30 pg (25-35) Mean Corpuscular Hemoglobin Concent 33 g/dL (31-37) 33 g/dL (31-37) Red Cell Distribution Width 15.4 % (11.5-14.5) 15.1 % (11.5-14.5) Platelet Count 326 x10^3/uL (140-400) 368 x10^3/uL (140-400) Neutrophils (%) (Auto) 76 % (31-73) 80 % (31-73) Lymphocytes (%) (Auto) 12 % (24-48) 10 % (24-48) Monocytes (%) (Auto) 7 % (0-9) 6 % (0-9) Eosinophils (%) (Auto) 4 % (0-3) 3 % (0-3) Basophils (%) (Auto) 1 % (0-3) 1 % (0-3) Neutrophils # (Auto) 4.1 x10^3uL (1.8-7.7) 4.6 x10^3uL (1.8-7.7) Lymphocytes # (Auto) 0.7 x10^3/uL (1.0-4.8) 0.6 x10^3/uL (1.0-4.8) Monocytes # (Auto) 0.4 x10^3/uL (0.0-1.1) 0.3 x10^3/uL (0.0-1.1) Eosinophils # (Auto) 0.2 x10^3/uL (0.0-0.7) 0.2 x10^3/uL (0.0-0.7) Basophils # (Auto) 0.0 x10^3/uL (0.0-0.2) 0.0 x10^3/uL (0.0-0.2) Laboratory Tests Test 11/05/18 05:50 White Blood Count 5.8 x10^3/uL (4.0-11.0) Red Blood Count 3.42 x10^6/uL (3.50-5.40) Hemoglobin 10.4 g/dL (12.0-15.5) Hematocrit 31.8 % (36.0-47.0) Mean Corpuscular Volume 93 fL (79-100) Mean Corpuscular Hemoglobin 30 pg (25-35) Mean Corpuscular Hemoglobin Concent 33 g/dL (31-37) Red Cell Distribution Width 15.1 % (11.5-14.5) Platelet Count 368 x10^3/uL (140-400) Neutrophils (%) (Auto) 80 % (31-73) Lymphocytes (%) (Auto) 10 % (24-48) Monocytes (%) (Auto) 6 % (0-9) Eosinophils (%) (Auto) 3 % (0-3) Basophils (%) (Auto) 1 % (0-3) Neutrophils # (Auto) 4.6 x10^3uL (1.8-7.7) Lymphocytes # (Auto) 0.6 x10^3/uL (1.0-4.8) Monocytes # (Auto) 0.3 x10^3/uL (0.0-1.1) Eosinophils # (Auto) 0.2 x10^3/uL (0.0-0.7) Basophils # (Auto) 0.0 x10^3/uL (0.0-0.2) Microbiology 10/26/18 Blood Culture - Final, Complete NO GROWTH AFTER 5 DAYS 10/27/18 Anaerobic/Aerobic Culture - Final, Complete 10/27/18 Anaerobic Culture Result 1 (NANDO) - Final, Complete 10/27/18 Aerobic Culture - Final, Complete 10/27/18 Aerobic Culture Result 1 (NANDO) - Final, Complete 10/27/18 Gram Stain - Final, Complete 10/27/18 Gram Stain Result 1 (NANDO) - Final, Complete 10/27/18 Gram Stain Result 2 (NANDO) - Final, Complete 11/02/18 - Final, Resulted 11/02/18 - Final, Resulted 11/02/18 - Final, Resulted 11/02/18 Gram Stain Evaluation - Final, Resulted 11/02/18 Sputum Culture - Preliminary, Resulted 11/02/18 Sputum Result 1 - Final, Resulted 10/25/18 Urine Culture - Final, Complete 10/25/18 Urine Culture Result 1 (NANDO) - Final, Complete 10/25/18 Urine Culture Result 2 (NANDO) - Final, Complete 10/25/18 Antimicrobic Susceptibility - Final, Complete 10/27/18 Anaerobic/Aerobic Culture - Final, Complete 10/27/18 Anaerobic Culture Result 1 (NANDO) - Final, Complete 10/27/18 Aerobic Culture - Final, Complete 10/27/18 Aerobic Culture Result 1 (NANDO) - Final, Complete 10/27/18 Antimicrobic Susceptibility - Final, Complete 10/27/18 Gram Stain - Final, Complete 10/27/18 Gram Stain Result 1 (NANDO) - Final, Complete 10/27/18 Gram Stain Result 2 (NANDO) - Final, Complete Medications Current Medications Sodium Chloride 1,000 ml @ 1,000 mls/hr Q1H IV Last administered on 10/25/18 19:04; Start 10/25/18 at 17:28; Stop 10/25/18 at 18:27; Status DC Albuterol/ Ipratropium (Duoneb) 3 ml 1X ONCE NEB Last administered on at 17:53; Start 10/25/18 at 17:30; Stop 10/25/18 at 17:31; Status DC Methylprednisolone Sodium Succinate (SOLU-Medrol 125MG VIAL) 125 mg 1X ONCE IV Last administered on 10/25/18 19:04; Start 10/25/18 at 17:30; Stop 10/25/18 at 17:31; Status DC Ceftriaxone Sodium (Rocephin) 1 gm 1X ONCE IVP Last administered on 10/25/18at 20:24; Start 10/25/18 at 19:00; Stop 10/25/18 at 19:02; Status DC Ondansetron HCl (Zofran) 4 mg PRN Q8HRS PRN IV NAUSEA/VOMITING; Start 10/25/18 at 20:15; Stop 10/26/18 at 20:14; Status DC Sodium Chloride 1,000 ml @ 126 mls/hr Q7H57M IV ; Start 10/25/18 at 20:07; Stop 10/26/18 at 07:12; Status DC Acetaminophen (Tylenol) 650 mg 1X ONCE PEG Last administered on 10/26/18at 04:59 ; Start 10/26/18 at 04:30; Stop 10/26/18 at 04:32; Status DC Piperacillin Sod/ Tazobactam Sod (Zosyn Per Pharmacy) 1 each PRN DAILY PRN MC SEE COMMENTS; Start 10/26/18 at 07:15; Status Cancel Vancomycin HCl (Vanco Per Pharmacy) 1 each PRN DAILY PRN MC SEE COMMENTS Last administered on 10/31/18at 17:49; Start 10/26/18 at 07:15; Stop 11/01/18 at 09:17 ; Status DC Piperacillin Sod/ Tazobactam Sod 3.375 gm/Sodium Chloride 50 ml @ 100 mls/hr Q6HRS IV Last administered on 11/01/18at 06:01; Start 10/26/18 at 08:00; Stop at 09:30; Status DC Vancomycin HCl 1.75 gm/Sodium Chloride 500 ml @ 250 mls/hr 1X ONCE IV Last administered on 10/26/18at 09:25; Start 10/26/18 at 08:00; Stop 10/26/18 at 09:59; Status DC Azithromycin (Zithromax) 250 mg DAILY PO ; Start 10/27/18 at 09:00; Status UNV Baclofen (Lioresal) 10 mg TID PO Last administered on 11/05/18at 09:39; Start at 14:00 Diazepam (Valium) 2 mg TID PO Last administered on 11/05/18at 09:38; Start at 14:00 Diltiazem HCl (Cardizem) 30 mg QHS PO Last administered on 11/04/18at 21:08; Start 10/26/18 at 21:00 Estradiol (Climara Weekly) 1 mg WEEKLY TD ; Start 11/02/18 at 09:00; Stop at 09:00; Status DC Levetiracetam (Keppra) 750 mg BID PO Last administered on 11/05/18 09:26; Start 10/26/18 at 12:00 Metoprolol Tartrate (Lopressor) 25 mg BID PO Last administered on 11/05/18 09: 24; Start 10/26/18 at 12:00 Sodium Monofluorophosphate (Fleet Adult) 133 ml DAILY PRN RC CONSTIPATION, 2ND CHOICE [place] Last administered on 11/01/18at 12:29; Start 10/26/18 at 11:15 Nystatin (Nystop) 1 parag PRN BID PRN TP RASH; Start 10/26/18 at 11:15; Stop 10/27 at 10:35; Status DC Acetaminophen (Tylenol) 500 mg PRN Q6HRS PRN PO MILD PAIN / TEMP; Start at 11:30 Non-Formulary Medication (Cran/C/B.coag/ Fos/L.acid/L.rha (Probiotic Plus & Cranberry Cap)) 1 each BID PO ; Start 10/26/18 at 21:00; Status UNV Diltiazem HCl (Cardizem) 60 mg DAILY16 PO Last administered on 11/03/18 13:30 ; Start 10/26/18 at 16:00 Diltiazem HCl (Cardizem) 60 mg DAILY07 PO Last administered on 11/05/18 09:30 ; Start 10/27/18 at 07:00 Non-Formulary Medication (Levalbuterol Hcl ) 0.63 mg TID IH ; Start 10/26/18 at 14:00; Status UNV Non-Formulary Medication (Levalbuterol Hcl (Xopenex)) 1 vial TID NEB ; Start 10/26/18 at 14:00; Status UNV Non-Formulary Medication (Modafinil (Provigil)) 200 mg DAILY PO Last administered on 11/02/18 08:27; Start 10/27/18 at 11:30 Non-Formulary Medication (Norethindrone (Karishma)) 0.35 mg DAILY PO ; Start 10/27 at 09:00; Status UNV Paroxetine HCl (Paxil) 10 mg DAILY PO Last administered on 11/05/18 09:23; Start 10/26/18 at 12:00 Scopolamine (Transderm-Scop) 1 patch Q3DAYS TD Last administered on 11/05/18 09:39; Start 10/27/18 at 09:00 Non-Formulary Medication (Tiotropium [place] (Spiriva)) 18 mcg DAILY IH ; Start 10/27/18 at 09:00; Status UNV Albuterol/ Ipratropium (Duoneb) 3 ml RTQID NEB Last administered on 11/05/18 07:47; Start 10/26/18 at 12:00 Albuterol Sulfate (Ventolin Neb Soln) 2.5 mg PRN TID PRN NEB SHORTNESS OF BREATH; Start 10/26/18 at 11:30 Vancomycin HCl 1 gm/Sodium Chloride 250 ml @ 250 mls/hr Q24H IV Last administered on 10/28/18 09:51; Start 10/27/18 at 09:30; Stop 10/28/18 at 12:00 ; Status DC Vancomycin HCl (Vancomycin Trough Level) 1 each 1X ONCE MC Last administered on 10/28/18 09:00; Start 10/28/18 at 09:00; Stop 10/28/18 at 09:01; Status DC Aspirin (Children'S Aspirin) 81 mg DAILYWBKFT PO Last administered on 09:23; Start 10/26/18 at 14:30 Non-Formulary Medication 1 ea PRN TID PRN PO APPLY TO AFFECTED AREA Last administered on 11/01/18 08:33; Start 10/27/18 at 11:00 Vancomycin HCl 1.25 gm/Sodium Chloride 250 ml @ 167 mls/hr Q12H IV Last administered on 10/29/18 08:52; Start 10/28/18 at 22:00; Stop 10/29/18 at 22:05 ; Status DC Vancomycin HCl (Vancomycin Trough Level) 1 each 1X ONCE MC Last administered on 10/29/18 21:30; Start 10/29/18 at 21:30; Stop 10/29/18 at 21:31; Status DC Vancomycin HCl 1 gm/Sodium Chloride 250 ml @ 250 mls/hr Q12H IV Last administered on 10/31/18 06:07; Start 10/30/18 at 05:00; Stop 10/31/18 at 17:34 ; Status DC Vancomycin HCl (Vancomycin Trough Level) 1 each 1X ONCE MC Last administered on 10/31/18at 17:30; Start 10/31/18 at 17:30; Stop 10/31/18 at 17:34; Status DC Budesonide (Pulmicort) 0.5 mg RTBID NEB Last administered on 11/05/18at 07:47; Start 10/30/18 at 08:00 Docusate Sodium (Enemeez) 283 mg PRN DAILY PRN [place] CONSTIPATION, 1ST CHOICE; Start 10/30/18 at 10:30 Vancomycin HCl 750 mg/Sodium Chloride 250 ml @ 250 mls/hr Q12H IV Last administered on 11/01/18at 08:27; Start 10/31/18 at 20:00; Stop 11/01/18 at 09:14 ; Status DC Vancomycin HCl (Vancomycin Trough Level) 1 each 1X ONCE MC ; Start 11/02/18 at 07:30; Stop 11/02/18 at 07:30; Status DC Meropenem 500 mg/ Sodium Chloride 50 ml @ 100 mls/hr Q6HRS IV Last administered on 11/05/18at 05:50; Start 11/01/18 at 12:00 Atorvastatin Calcium (Lipitor) 80 mg QHS PO Last administered on 11/04/18at 21: 01; Start 11/01/18 at 21:00 Estradiol (Climara Weekly) 0.1 mg WEEKLY TD Last administered on 11/02/18at 08: 40; Start 11/02/18 at 09:00 Enoxaparin Sodium (Lovenox 40mg Syringe) 40 mg Q24H SQ Last administered on at 09:00; Start 11/02/18 at 11:00 Hydralazine HCl (Apresoline Inj) 10 mg PRN Q6HRS PRN IVP ELEVATED BP, SEE COMMENTS Last administered on 11/03/18at 14:29; Start 11/03/18 at 14:00 Metoprolol Tartrate (Lopressor Vial) 10 mg PRN Q6HRS PRN IVP HYPERTENSION, SEE COMMENTS; Start 11/03/18 at 17:00 Furosemide (Lasix) 40 mg 1X ONCE IVP Last administered on 11/03/18at 21:00; Start 11/03/18 at 21:00; Stop 11/03/18 at 21:01; Status DC Vitamin A/Vitamin D (Vitamin A & D Ointment) 1 parag PRN Q1HR PRN TP SKIN PROTECTION Last administered on 11/05/18at 09:27; Start 11/04/18 at 13:45 Active Scripts Active Reported Atorvastatin Calcium 80 Mg Tablet 80 Mg PO HS Cardizem Tablet (Diltiazem Hcl) 30 Mg Tablet 30 Mg PO HS PRN Enema Ready To Use (Na Phos,M-B/Na Phos,Di-Ba) 133 Ml Enema 133 Ml RC Acetaminophen 500 Mg Tablet 1 Tab PO Q6HRS Probiotic Plus & Cranberry Cap (Cran/C/B.coag/Fos/L.acid/L.rha) 1 Each Capsule 1 Each PO BID Azithromycin Tablet (Azithromycin) 250 Mg Tablet 250 Mg PO DAILY Estradiol Transdermal Patch (Estradiol) 1 Each Patch.tdwk 1 Each TD BID WEEKLY Next dose 06/30/17 Karishma (Norethindrone) 0.35 Mg Tablet 0.35 Mg PO DAILY Keppra (Levetiracetam) 500 Mg Tablet 750 Mg PO BID Cardizem Tablet (Diltiazem Hcl) 60 Mg Tablet 60 Mg PO DAILY16 Metoprolol Tartrate 25 Mg Tablet 1 Tab PO BID Xopenex (Levalbuterol Hcl) 0.63 Mg/3 Ml Vial.neb 1 Vial NEB TID Valium (Diazepam) 2 Mg Tablet 2 Mg PO TID Transderm-Scop (Scopolamine) 1 Each Patch.td72 1 Each TD Q3DAYS Indication: secretions Next dose: 06/30/17 am Nystop (Nystatin) 60 Gm Powder 60 Gm TP PRN Indication: rash NExt dose: as needed Levalbuterol Hcl 0.63 Mg/3 Ml Vial.neb 0.63 Mg IH TID Spiriva (Tiotropium [place]) 18 Mcg Cap.w.dev 18 Mcg IH DAILY Diltiazem Hcl Tablet (Diltiazem Hcl) 60 Mg Tablet 60 Mg PO DAILY07 Provigil (Modafinil) 200 Mg Tablet 200 Mg PO DAILY Paxil (Paroxetine Hcl) 10 Mg/5 Ml Oral.susp 10 Mg PO DAILY Baclofen 10 Mg Tablet 10 Mg PO TID Vitals/I & O Vital Sign - Last 24 Hours 11/04/18 11/04/1811/04/11/04/18 10:00 11:00 11:40 12:00 Pulse 76 82 Resp 13 13 B/P (MAP) 105/55 (72) 115/55 (75) Pulse Ox 99 99 100 O2 Delivery Tracheal Collar Tracheal Collar BiPAP/CPAP Trach Collar O2 Flow Rate 10.0 11/04/ 418/ 4/18/19 4/ 12:00 12:47 13:00 13:32 Pulse 78 70 Resp 13 13 B/P (MAP) 109/55 (73) 103/58 (73) Pulse Ox 99 99 100 O2 Delivery Tracheal Collar Tracheal Collar BiPAP/CPAP O2 Flow Rate 10.0 11/04/11/04/11/04/11/04/ 14:00 15:00 15:13 15:38 Pulse 76 82 80 Resp 13 13 B/P (MAP) 86/60 (69) 93/48 (63) 93/48 Pulse Ox 99 99 98 O2 Delivery Tracheal Collar Tracheal Collar BiPAP/CPAP 11/04/1811/04/11/04/11/04/ 16:00 16:00 16:00 17:00 Pulse 80 80 Resp 13 13 B/P (MAP) 89/52 (64) 94/58 (70) Pulse Ox 99 99 O2 Delivery Trach Collar Tracheal Collar Tracheal Collar O2 Flow Rate 10.0 10.0 11/04/18/19 /18/19 11/04/ 17:49 18:00 19:00 20:00 Temp 96.7 96.7 Pulse 73 72 70 Resp 13 13 B/P (MAP) 97/58 (71) 93/49 (64) 82/51 (61) Pulse Ox 99 99 99 98 O2 Delivery BiPAP/CPAP BiPAP/CPAP BiPAP/CPAP O2 Flow Rate 10.0 11/04/11/04/19 18/19 11/04/ 20:00 20:05 21:00 21:08 Pulse 88 88 Resp 14 B/P (MAP) 140/72 (94) 140/72 Pulse Ox 96 98 O2 Delivery Bi-pap BiPAP/CPAP BiPAP/CPAP 11/04/1811/04/11/04/11/04/ 21:08 22:00 23:00 23:28 Pulse 88 75 70 Resp 13 13 B/P (MAP) 140/72 100/54 (69) 90/50 (63) Pulse Ox 98 98 98 O2 Delivery BiPAP/CPAP BiPAP/CPAP BiPAP/CPAP 11/05/18 11/05/18 11/05/18 11/05/18 00:00 00:00 01:00 01:20 Temp 98.3 98.3 Pulse 77 82 Resp 14 14 B/P (MAP) 113/61 (78) 121/70 (87) Pulse Ox 99 99 98 O2 Delivery Bi-pap BiPAP/CPAP BiPAP/CPAP BiPAP/CPAP 11/05/18 11/05/18 11/05/18 11/05/18 02:00 03:00 03:34 04:00 Pulse 78 87 Resp 14 16 B/P (MAP) 119/59 (79) 140/63 (88) Pulse Ox 98 98 98 O2 Delivery BiPAP/CPAP BiPAP/CPAP BiPAP/CPAP Bi-pap 11/05/18 11/05/18 11/05/18 11/05/18 04:00 05:00 05:28 06:00 Temp 98.7 98.7 Pulse 88 93 96 Resp 14 17 14 B/P (MAP) 152/60 (90) 127/53 (77) 137/60 (85) Pulse Ox 99 99 98 99 O2 Delivery BiPAP/CPAP BiPAP/CPAP BiPAP/CPAP BiPAP/CPAP 11/05/18 11/05/18 11/05/18 07:47 09:24 09:30 B/P (MAP) 123/56 123/56 Pulse Ox 100 O2 Delivery BiPAP/CPAP Intake and Output 11/04/18 11/04/18 11/05/18 15:00 23:00 07:00 Intake Total 100 ml 250 ml Output Total 600 ml 400 ml 800 ml Balance -600 ml -300 ml -550 ml FLAQUITO LIRA MD Nov 05, 2018 09:51
--- NOTE | 2018-11-05 09:59 | NUR ---
SS following up with discharge planning. SS received phone contact from Andrés at [facility], , stating that they cannot deliver trilogy today as they are out of stock and cannot get any in until next week. SS spoke with Gee at [facility], , who stated that they have Trilogy machines readily available. SS phoned and faxed records to [facility], ; fax [phone]. Vane from [facility] stated that per Medicare guidelines since pt's considered to have invasive ventilation a walk through of the home needs to be completed. Vane reported that she will contact this morning and schedule walk through of the home for today. Vane reported that she would keep SS updated and would complete order as quickly as possible. SS will continue to follow for discharge planning.
--- NOTE | 2018-11-05 10:06 | PDOC ---
PULMONARY PROGRESS NOTES Subjective on AVAPS s/p repeat right thoracentesis 11/04 Vitals Vital Signs Date Time Temp Pulse Resp B/P (MAP) Pulse Ox O2 Delivery O2 Flow Rate FiO2 11/05/18 09:30 123/56 11/05/18 07:47 100 BiPAP/CPAP 11/05/18 06:00 96 14 11/05/18 04:00 98.7 98.7 11/04/18 18:00 10.0 Comments as mentioned as above other sys otherwise neg ROS: No Nausea, No Chest Pain General: No acute distress HEENT: Other (nc at perrl nose throat clear, neck, trach site ok no lad, no thyromegaly) Lungs: Other (decrease bs) Cardiovascular: S1, S2 Abdomen: Soft, Non-tender, Other (no mass) Neuro Exam: Alert Extremities: Other (edema) Skin: Warm Labs Laboratory Tests Test 11/03/18 12:40 11/04/18 05:50 11/05/18 05:50 O2 Saturation 93 % (92-99) Arterial Blood pH 7.36 (7.35-7.45) Arterial Blood pCO2 at Patient Temp 63 mmHg (35-46) Arterial Blood pO2 at Patient Temp 75 mmHg (65-108) Arterial Blood HCO3 35 mmol/L (21-28) Arterial Blood Base Excess 8 mmol/L (-3-3) FiO2 60 ts White Blood Count 5.4 x10^3/uL (4.0-11.0) 5.8 x10^3/uL (4.0-11.0) Red Blood Count 3.37 x10^6/uL (3.50-5.40) 3.42 x10^6/uL (3.50-5.40) Hemoglobin 10.2 g/dL (12.0-15.5) 10.4 g/dL (12.0-15.5) Hematocrit 31.4 % (36.0-47.0) 31.8 % (36.0-47.0) Mean Corpuscular Volume 93 fL (79-100) 93 fL (79-100) Mean Corpuscular Hemoglobin 30 pg (25-35) 30 pg (25-35) Mean Corpuscular Hemoglobin Concent 33 g/dL (31-37) 33 g/dL (31-37) Red Cell Distribution Width 15.4 % (11.5-14.5) 15.1 % (11.5-14.5) Platelet Count 326 x10^3/uL (140-400) 368 x10^3/uL (140-400) Neutrophils (%) (Auto) 76 % (31-73) 80 % (31-73) Lymphocytes (%) (Auto) 12 % (24-48) 10 % (24-48) Monocytes (%) (Auto) 7 % (0-9) 6 % (0-9) Eosinophils (%) (Auto) 4 % (0-3) 3 % (0-3) Basophils (%) (Auto) 1 % (0-3) 1 % (0-3) Neutrophils # (Auto) 4.1 x10^3uL (1.8-7.7) 4.6 x10^3uL (1.8-7.7) Lymphocytes # (Auto) 0.7 x10^3/uL (1.0-4.8) 0.6 x10^3/uL (1.0-4.8) Monocytes # (Auto) 0.4 x10^3/uL (0.0-1.1) 0.3 x10^3/uL (0.0-1.1) Eosinophils # (Auto) 0.2 x10^3/uL (0.0-0.7) 0.2 x10^3/uL (0.0-0.7) Basophils # (Auto) 0.0 x10^3/uL (0.0-0.2) 0.0 x10^3/uL (0.0-0.2) Laboratory Tests Test 11/05/18 05:50 White Blood Count 5.8 x10^3/uL (4.0-11.0) Red Blood Count 3.42 x10^6/uL (3.50-5.40) Hemoglobin 10.4 g/dL (12.0-15.5) Hematocrit 31.8 % (36.0-47.0) Mean Corpuscular Volume 93 fL (79-100) Mean Corpuscular Hemoglobin 30 pg (25-35) Mean Corpuscular Hemoglobin Concent 33 g/dL (31-37) Red Cell Distribution Width 15.1 % (11.5-14.5) Platelet Count 368 x10^3/uL (140-400) Neutrophils (%) (Auto) 80 % (31-73) Lymphocytes (%) (Auto) 10 % (24-48) Monocytes (%) (Auto) 6 % (0-9) Eosinophils (%) (Auto) 3 % (0-3) Basophils (%) (Auto) 1 % (0-3) Neutrophils # (Auto) 4.6 x10^3uL (1.8-7.7) Lymphocytes # (Auto) 0.6 x10^3/uL (1.0-4.8) Monocytes # (Auto) 0.3 x10^3/uL (0.0-1.1) Eosinophils # (Auto) 0.2 x10^3/uL (0.0-0.7) Basophils # (Auto) 0.0 x10^3/uL (0.0-0.2) Medications Active Scripts Medications Dose Route/Sig Max Daily Dose Days Date Category Dose Instructions Cardizem Tablet (Diltiazem Hcl) 30 Mg Tablet 30 Mg PO HS PRN 10/26/18 Reported Enema Ready To Use (Na Phos,M-B/Na Phos,Di-Ba) 133 Ml Enema 133 Ml RC 01/30/17 Reported Acetaminophen 500 Mg Tablet 1 Tab PO Q6HRS 01/30/17 Reported Probiotic Plus & Cranberry Cap (Cran/C/B.coag/Fos/L.acid/L.rha) 1 Each Capsule 1 Each PO BID 01/30/17 Reported Azithromycin Tablet (Azithromycin) 250 Mg Tablet 250 Mg PO DAILY 01/30/17 Reported Estradiol Transdermal Patch (Estradiol) 1 Each Patch.tdwk 1 Each TD BID WEEKLY 01/30/17 Reported Next dose 06/30/17 Karishma (Norethindrone) 0.35 Mg Tablet 0.35 Mg PO DAILY 01/30/17 Reported Keppra (Levetiracetam) 500 Mg Tablet 750 Mg PO BID 01/30/17 Reported Cardizem Tablet (Diltiazem Hcl) 60 Mg Tablet 60 Mg PO DAILY16 06/12/15 Reported Metoprolol Tartrate 25 Mg Tablet 1 Tab PO BID 12/28/14 Reported Xopenex (Levalbuterol Hcl) 0.63 Mg/3 Ml Vial.neb 1 Vial NEB TID 12/27/14 Reported Valium (Diazepam) 2 Mg Tablet 2 Mg PO TID 10/11/13 Reported Transderm-Scop (Scopolamine) 1 Each Patch.td72 1 Each TD Q3DAYS 07/28/13 Reported Indication: secretions Next dose: 06/30/17 am Nystop (Nystatin) 60 Gm Powder 60 Gm TP PRN 07/28/13 Reported Indication: rash NExt dose: as needed Levalbuterol Hcl 0.63 Mg/3 Ml Vial.neb 0.63 Mg IH TID 07/28/13 Reported Spiriva (Tiotropium [place]) 18 Mcg Cap.w.dev 18 Mcg IH DAILY 07/28/13 Reported Diltiazem Hcl Tablet (Diltiazem Hcl) 60 Mg Tablet 60 Mg PO DAILY07 07/28/13 Reported Provigil (Modafinil) 200 Mg Tablet 200 Mg PO DAILY 07/28/13 Reported Paxil (Paroxetine Hcl) 10 Mg/5 Ml Oral.susp 10 Mg PO DAILY 07/28/13 Reported Baclofen 10 Mg Tablet 10 Mg PO TID 07/28/13 Reported Comments cxr reviewed, 11/03 moderate bilateral effusions, no change URINE CULTURE Final Final report URINE CULTURE RES 1 Final Comment Pseudomonas aeruginosa Greater than 100,000 colony forming units per mL URINE CULTURE RES 2 Final Enterococcus faecalis 25,000-50,000 colony forming units per mL ANTIMICROBIAL SUSCEPTIBILITY Final Comment S = Susceptible; I = Intermediate; R = Resistant P = Positive; N = Negative MICS are expressed in micrograms per mL Antibiotic RSLT#1 RSLT#2 RSLT#3 RSLT#4 Amikacin S =16 Cefepime I =16 Ceftazidime S =4 Ciprofloxacin R>=4 R>=8 Gentamicin I =8 Imipenem S =4 Levofloxacin R>=8 R>=8 Meropenem S =1 Nitrofurantoin S<=16 Penicillin R =16 Piperacillin S =32 Tetracycline R>=16 Ticarcillin R>=128 Tobramycin S<=1 Vancomycin S =1 Performed at: - [facility], [place], [place] [id number] Hemstitcher: RELL Marqeus MD, Phone: [phone] RUN DATE: 10/30/18 PAGE 1 RUN TIME: 1510 [facility] [address] [place] [address] Judson Roy M.D., Programmer Developer PATIENT: MINNIE BENZ ACCT: [id number] LOC: 1 [facility] ICU U : [id number] AGE/SX: 68/F ROOM: 112 REG : 10/25/[address]: RIGOBERTO VORA III, DO : 1950 BED: 1 DIS : STATUS: ADM IN TLOC: SPEC #: [id number] ALVARO: 10/27/18 STATUS: RES REQ #: [id number] RECD: 10/27/[address]: DARWIN PITTS MD SOURCE: [facility] SITE ENTR: 10/27/18 [facility] DR: ANIKET LUNA MD SPDC: RIGOBERTO VORA III, AMAN U MD KURTZ, ANN E MD MCSWEYN, DONALD J MD ORDERED: NGA/JOHNY/GS Procedure Result ANAEROBIC-AEROBIC CULTURE PENDING ANAEROBIC RES 1 PENDING AEROBIC CULT Final Final report AEROBIC RES 1 Final Comment Pseudomonas aeruginosa 1+ ANTIMICROBIAL SUSCEPTIBILITY Final Comment S = Susceptible; I = Intermediate; R = Resistant P = Positive; N = Negative MICS are expressed in micrograms per mL Antibiotic RSLT#1 RSLT#2 RSLT#3 RSLT#4 Amikacin S<=2 Cefepime R>=64 Ceftazidime R>=64 Ciprofloxacin R>=4 Gentamicin S<=1 Imipenem I =8 Levofloxacin R>=8 Meropenem S =4 Piperacillin R>=128 Ticarcillin R>=128 Tobramycin S<=1 Impression . 1. Acute on chronic hypercapnic and hypoxic respiratory failure secondary to multifactorial etiologies including sepsis , effusions 2. The patient with severe/advanced multiple sclerosis with chronic respiratory failure. 3. The patient with prior thoracentesis and prior multiple bronchoscopies. now with increasing bilateral effusions, s/p thoracentesis bilateral and then right side 11/04 again 4. Fever resolved 5. BC + 1/2 G + cocci - MRSE 10/25. 6. UTI w/ PSA and Enterococcus (PCN- R). SPC last changed 10/25 7. Trach site infection with growth of PSA, 10/25 Plan . 1. Continue with present AVAPS continuously at night. T-SHIELD DURING DAY as tolerated. 2. Continue broad-spectrum antibiotics per ID 3. CXR reviewed. Moderate effusions,. s/p right repeat right thoracentesis 11/04 4. s/p bilateral thoracentesis.on admit. transudate, cxs neg, 5. elevate hob 6. d/w . 7. enteral nutrition 8. She would need chronic nocturnal vent support . NIF -15 . shoe parts caser to arrange Triligy at home/ teach 9. BD, discussed w rn, rt/ / LADLE OPERATOR ANA HOLLIDAY MD Nov 05, 2018 10:06
[2018-11-05] MEDS: ENOXAPARIN 40 MG/0.4 ML SYRINGE. SQ SCH (11:46)
[2018-11-05] MEDS ORDERED: ALTEPLASE 1MG SYRINGE. INT CAT ONE ×3 (20:00)
[2018-11-05] MEDS: ATORVASTATIN CALCIUM 40 MG TABLET. PO SCH (21:39)
[2018-11-06] VITALS (24 sets, daily range): BP systolic 103–155; BP diastolic 53–78
[2018-11-06] MEDS: MEROPENEM 500 MG in IV NORMAL SALINE 50ML 50 ML IV SCH ×2 (05:50→11:38)
[2018-11-06 06:12] LABS: BASO # 0.1 x10^3/uL (0.0-0.2); BASO % 1 % (0-3); EOS # 0.2 x10^3/uL (0.0-0.7); EOS % 3 % (0-3); HEMOGLOBIN 11.1 g/dL (12.0-15.5); LYMPH # 0.5 x10^3/uL (1.0-4.8); LYMPH % 9 % (24-48); MEAN CORPUSCULAR HEMOGLOBIN 31 pg (25-35); MEAN CORPUSCULAR HGB CONC 34 g/dL (31-37); MEAN CORPUSCULAR VOLUME 92 fL (79-100); MONO # 0.2 x10^3/uL (0.0-1.1); MONO % 5 % (0-9); NEUT # 4.1 x10^3uL (1.8-7.7); NEUT % 81 % (31-73); PLATELET COUNT 404 x10^3/uL (140-400); RED BLOOD COUNT 3.58 x10^6/uL (3.50-5.40); RED CELL DISTRIBUTION WIDTH 15.3 % (11.5-14.5)
[2018-11-06] MEDS: IPRATRPIUM/ALBUTEROL 0.5/2.5MG 3 ML NEBU. NEB SCH ×4 (07:28→20:40)
[2018-11-06] MEDS: BUDESONIDE 0.5 MG/2 ML NEBU. NEB SCH ×2 (07:28→20:40)
--- NOTE | 2018-11-06 07:30 | PDOC ---
PULMONARY PROGRESS NOTES Subjective on trilogy, alert, appears comfortable s/p repeat right thoracentesis 11/04 Vitals Vital Signs Date Time Temp Pulse Resp B/P (MAP) Pulse Ox O2 Delivery O2 Flow Rate FiO2 11/06/18 06:00 78 15 147/60 (89) 99 trilogy 5.0 11/06/18 04:00 98.0 98.0 Comments as mentioned as above other sys otherwise neg ROS: No Nausea, No Chest Pain General: No acute distress HEENT: Other (nc at perrl nose throat clear, neck, trach site ok no lad, no thyromegaly) Lungs: Other (decrease bs) Cardiovascular: S1, S2 Abdomen: Soft, Non-tender, Other (no mass) Neuro Exam: Alert Extremities: Other (edema) Skin: Warm Labs Laboratory Tests Test 11/05/18 05:50 11/06/18 05:30 White Blood Count 5.8 x10^3/uL (4.0-11.0) 5.0 x10^3/uL (4.0-11.0) Red Blood Count 3.42 x10^6/uL (3.50-5.40) 3.58 x10^6/uL (3.50-5.40) Hemoglobin 10.4 g/dL (12.0-15.5) 11.1 g/dL (12.0-15.5) Hematocrit 31.8 % (36.0-47.0) 33.0 % (36.0-47.0) Mean Corpuscular Volume 93 fL (79-100) 92 fL (79-100) Mean Corpuscular Hemoglobin 30 pg (25-35) 31 pg (25-35) Mean Corpuscular Hemoglobin Concent 33 g/dL (31-37) 34 g/dL (31-37) Red Cell Distribution Width 15.1 % (11.5-14.5) 15.3 % (11.5-14.5) Platelet Count 368 x10^3/uL (140-400) 404 x10^3/uL (140-400) Neutrophils (%) (Auto) 80 % (31-73) 81 % (31-73) Lymphocytes (%) (Auto) 10 % (24-48) 9 % (24-48) Monocytes (%) (Auto) 6 % (0-9) 5 % (0-9) Eosinophils (%) (Auto) 3 % (0-3) 3 % (0-3) Basophils (%) (Auto) 1 % (0-3) 1 % (0-3) Neutrophils # (Auto) 4.6 x10^3uL (1.8-7.7) 4.1 x10^3uL (1.8-7.7) Lymphocytes # (Auto) 0.6 x10^3/uL (1.0-4.8) 0.5 x10^3/uL (1.0-4.8) Monocytes # (Auto) 0.3 x10^3/uL (0.0-1.1) 0.2 x10^3/uL (0.0-1.1) Eosinophils # (Auto) 0.2 x10^3/uL (0.0-0.7) 0.2 x10^3/uL (0.0-0.7) Basophils # (Auto) 0.0 x10^3/uL (0.0-0.2) 0.1 x10^3/uL (0.0-0.2) Laboratory Tests Test 11/06/18 05:30 White Blood Count 5.0 x10^3/uL (4.0-11.0) Red Blood Count 3.58 x10^6/uL (3.50-5.40) Hemoglobin 11.1 g/dL (12.0-15.5) Hematocrit 33.0 % (36.0-47.0) Mean Corpuscular Volume 92 fL (79-100) Mean Corpuscular Hemoglobin 31 pg (25-35) Mean Corpuscular Hemoglobin Concent 34 g/dL (31-37) Red Cell Distribution Width 15.3 % (11.5-14.5) Platelet Count 404 x10^3/uL (140-400) Neutrophils (%) (Auto) 81 % (31-73) Lymphocytes (%) (Auto) 9 % (24-48) Monocytes (%) (Auto) 5 % (0-9) Eosinophils (%) (Auto) 3 % (0-3) Basophils (%) (Auto) 1 % (0-3) Neutrophils # (Auto) 4.1 x10^3uL (1.8-7.7) Lymphocytes # (Auto) 0.5 x10^3/uL (1.0-4.8) Monocytes # (Auto) 0.2 x10^3/uL (0.0-1.1) Eosinophils # (Auto) 0.2 x10^3/uL (0.0-0.7) Basophils # (Auto) 0.1 x10^3/uL (0.0-0.2) Medications Active Scripts Medications Dose Route/Sig Max Daily Dose Days Date Category Dose Instructions Cardizem Tablet (Diltiazem Hcl) 30 Mg Tablet 30 Mg PO HS PRN 10/26/18 Reported Enema Ready To Use (Na Phos,M-B/Na Phos,Di-Ba) 133 Ml Enema 133 Ml RC 01/30/17 Reported Acetaminophen 500 Mg Tablet 1 Tab PO Q6HRS 01/30/17 Reported Probiotic Plus & Cranberry Cap (Cran/C/B.coag/Fos/L.acid/L.rha) 1 Each Capsule 1 Each PO BID 01/30/17 Reported Azithromycin Tablet (Azithromycin) 250 Mg Tablet 250 Mg PO DAILY 01/30/17 Reported Estradiol Transdermal Patch (Estradiol) 1 Each Patch.tdwk 1 Each TD BID WEEKLY 01/30/17 Reported Next dose 06/30/17 Karishma (Norethindrone) 0.35 Mg Tablet 0.35 Mg PO DAILY 01/30/17 Reported Keppra (Levetiracetam) 500 Mg Tablet 750 Mg PO BID 01/30/17 Reported Cardizem Tablet (Diltiazem Hcl) 60 Mg Tablet 60 Mg PO DAILY16 06/12/15 Reported Metoprolol Tartrate 25 Mg Tablet 1 Tab PO BID 12/28/14 Reported Xopenex (Levalbuterol Hcl) 0.63 Mg/3 Ml Vial.neb 1 Vial NEB TID 12/27/14 Reported Valium (Diazepam) 2 Mg Tablet 2 Mg PO TID 10/11/13 Reported Transderm-Scop (Scopolamine) 1 Each Patch.td72 1 Each TD Q3DAYS 07/28/13 Reported Indication: secretions Next dose: 06/30/17 am Nystop (Nystatin) 60 Gm Powder 60 Gm TP PRN 07/28/13 Reported Indication: rash NExt dose: as needed Levalbuterol Hcl 0.63 Mg/3 Ml Vial.neb 0.63 Mg IH TID 07/28/13 Reported Spiriva (Tiotropium [place]) 18 Mcg Cap.w.dev 18 Mcg IH DAILY 07/28/13 Reported Diltiazem Hcl Tablet (Diltiazem Hcl) 60 Mg Tablet 60 Mg PO DAILY07 07/28/13 Reported Provigil (Modafinil) 200 Mg Tablet 200 Mg PO DAILY 07/28/13 Reported Paxil (Paroxetine Hcl) 10 Mg/5 Ml Oral.susp 10 Mg PO DAILY 07/28/13 Reported Baclofen 10 Mg Tablet 10 Mg PO TID 07/28/13 Reported Comments cxr reviewed, 11/03 moderate bilateral effusions, no change URINE CULTURE Final Final report URINE CULTURE RES 1 Final Comment Pseudomonas aeruginosa Greater than 100,000 colony forming units per mL URINE CULTURE RES 2 Final Enterococcus faecalis 25,000-50,000 colony forming units per mL ANTIMICROBIAL SUSCEPTIBILITY Final Comment S = Susceptible; I = Intermediate; R = Resistant P = Positive; N = Negative MICS are expressed in micrograms per mL Antibiotic RSLT#1 RSLT#2 RSLT#3 RSLT#4 Amikacin S =16 Cefepime I =16 Ceftazidime S =4 Ciprofloxacin R>=4 R>=8 Gentamicin I =8 Imipenem S =4 Levofloxacin R>=8 R>=8 Meropenem S =1 Nitrofurantoin S<=16 Penicillin R =16 Piperacillin S =32 Tetracycline R>=16 Ticarcillin R>=128 Tobramycin S<=1 Vancomycin S =1 Performed at: - [facility], [place], [place] [id number] Card Cutter Helper: RELL Marques MD, Phone: [phone] RUN DATE: 10/30/18 PAGE 1 RUN TIME: 1510 [facility] [address] [place] [address] Judson Roy M.D., Inspector [employer] PATIENT: MINNIE BENZ ACCT: [id number] LOC: 1 [place] ICU U : [id number] AGE/SX: 68/F ROOM: 112 REG : 10/25/[address]: RIGOBERTO VORA III, DO : 1950 BED: 1 DIS : STATUS: ADM IN TLOC: SPEC #: [id number] ALVARO: 10/27/18 STATUS: RES REQ #: [id number] RECD: 10/27/[address]: DARWIN PITTS MD SOURCE: [facility] SITE ENTR: 10/27/[address] [facility] [address]: ANIKET LUNA MD [place]: RIGOBERTO VORA III, AMAN U MD KURTZ, ANN E MD MCSWEYN, DONALD J MD ORDERED: ANAER/AEROB/GS Procedure Result ANAEROBIC-AEROBIC CULTURE PENDING ANAEROBIC RES 1 PENDING AEROBIC CULT Final Final report AEROBIC RES 1 Final Comment Pseudomonas aeruginosa 1+ ANTIMICROBIAL SUSCEPTIBILITY Final Comment S = Susceptible; I = Intermediate; R = Resistant P = Positive; N = Negative MICS are expressed in micrograms per mL Antibiotic RSLT#1 RSLT#2 RSLT#3 RSLT#4 Amikacin S<=2 Cefepime R>=64 Ceftazidime R>=64 Ciprofloxacin R>=4 Gentamicin S<=1 Imipenem I =8 Levofloxacin R>=8 Meropenem S =4 Piperacillin R>=128 Ticarcillin R>=128 Tobramycin S<=1 Impression . 1. Acute on chronic hypercapnic and hypoxic respiratory failure secondary to multifactorial etiologies including sepsis , effusions 2. The patient with severe/advanced multiple sclerosis with chronic respiratory failure. 3. The patient with prior thoracentesis and prior multiple bronchoscopies. now with increasing bilateral effusions, s/p thoracentesis bilateral and then right side 11/04 again 4. Fever resolved 5. BC + 1/2 G + cocci - MRSE 10/25. 6. UTI w/ PSA and Enterococcus (PCN- R). SPC last changed 10/25 7. Trach site infection with growth of PSA, 10/25 Plan . 1. Continue with present triology continuously at night. TM DURING DAY as tolerated. 2. Continue broad-spectrum antibiotics per ID, Merrem since 11/01 was on IV Vanc and Zosyn prior 3. CXR reviewed. Moderate effusions,. s/p right repeat right thoracentesis 11/04 4. s/p bilateral thoracentesis.on admit. transudate, cxs neg, 5. elevate hob 6. d/w pt. 7. enteral nutrition 8. She would need chronic nocturnal vent support . NIF -15 . immigration case manager to arrange Triligy at home/ teach 9. BD, discussed w rn, rt/ SHYAM ALCARAZ MD Nov 06, 2018 07:30
[2018-11-06 07:47] LABS: BASE EXCESS ABG 4 mmol/L (-3-3); HCO3 ABG 30 mmol/L (21-28); PCO2 ABG 51 mmHg (35-46); PO2 ABG 84 mmHg (65-108); SAT O2 ABG 96 % (92-99)
[2018-11-06 07:50] LABS: FIO2 ABG 32% trilogy
[2018-11-06] MEDS: dilTIAZem HCL 30 MG TABLET PO SCH ×3 (07:56→20:44)
[2018-11-06] MEDS: PARoxetine 10 MG TABLET PO SCH (08:00)
[2018-11-06] MEDS: levETIRAcetam 250 MG TABLET PO SCH ×2 (08:00→20:42)
[2018-11-06] MEDS: BACLOFEN 10 MG TABLET. PO SCH ×3 (08:00→20:41)
[2018-11-06] MEDS: ASPIRIN CHEWABLE 81 MG TABLET. PO SCH (08:00)
[2018-11-06] MEDS: diazePAM 2 MG TABLET PO SCH ×3 (08:00→20:42)
[2018-11-06] MEDS: METOPROLOL TART IMMED RELEASE 25 MG TABLET. PO SCH ×2 (08:01→20:41)
--- NOTE | 2018-11-06 08:37 | PDOC ---
Infectious Disease Note Subjective Subjective Comfortable, denies pain/SOA/nausea Some loose stools Tube feedings 50 ml/hr Trach shield FiO2 98% ROS ROS per HPI otherwise neg Vital Sign Vital Signs Vital Signs Date Time Temp Pulse Resp B/P (MAP) Pulse Ox O2 Delivery O2 Flow Rate FiO2 11/06/18 08:01 89 155/71 11/06/18 07:29 100 BiPAP/CPAP 3.0 11/06/18 07:00 16 11/06/18 04:00 98.0 98.0 Physical Exam PHYSICAL EXAM GENERAL: Appears comfortable, alert, NAD HEENT: Oral cavity clear NECK: Tracheostomy in place. LUNGS: Improved aeration HEART: S1 and S2 regular. ABDOMEN: Obese, distended, soft and nontender. PEG tube. SPC (10/25) EXTREMITIES: Generalized edema. No cyanosis NEUROLOGICAL: Alert, quadriplegia. mouths words and nods SKIN: No rash RUE-PICC clean Labs Lab Laboratory Tests Test 11/06/18 05:30 11/06/18 07:40 White Blood Count 5.0 x10^3/uL (4.0-11.0) Red Blood Count 3.58 x10^6/uL (3.50-5.40) Hemoglobin 11.1 g/dL (12.0-15.5) Hematocrit 33.0 % (36.0-47.0) Mean Corpuscular Volume 92 fL (79-100) Mean Corpuscular Hemoglobin 31 pg (25-35) Mean Corpuscular Hemoglobin Concent 34 g/dL (31-37) Red Cell Distribution Width 15.3 % (11.5-14.5) Platelet Count 404 x10^3/uL (140-400) Neutrophils (%) (Auto) 81 % (31-73) Lymphocytes (%) (Auto) 9 % (24-48) Monocytes (%) (Auto) 5 % (0-9) Eosinophils (%) (Auto) 3 % (0-3) Basophils (%) (Auto) 1 % (0-3) Neutrophils # (Auto) 4.1 x10^3uL (1.8-7.7) Lymphocytes # (Auto) 0.5 x10^3/uL (1.0-4.8) Monocytes # (Auto) 0.2 x10^3/uL (0.0-1.1) Eosinophils # (Auto) 0.2 x10^3/uL (0.0-0.7) Basophils # (Auto) 0.1 x10^3/uL (0.0-0.2) O2 Saturation 96 % (92-99) Arterial Blood pH 7.39 (7.35-7.45) Arterial Blood pCO2 at Patient Temp 51 mmHg (35-46) Arterial Blood pO2 at Patient Temp 84 mmHg (65-108) Arterial Blood HCO3 30 mmol/L (21-28) Arterial Blood Base Excess 4 mmol/L (-3-3) FiO2 32% trilogy Micro 11/02. SPUTUM CULT RES 1 Final Pseudomonas aeruginosa Objective Assessment Fever, resolved Lactic acidosis and sepsis.resolved Suspected aspiration BC + 1/2 G + cocci - MRSE 10/25. Likely contaminant UTI w/ PSA and Enterococcus (PCN- R). 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 cx neg; s/p right thoracentesis 11/03 Hypercapnic respiratory failure. Advanced multiple scleroses. h/o seizures on Keppra h/o MRSA, VRE, c. diff Plan Plan of Care D/c Merrem since 11/01 start Cefepime and monitor was on IV Vanc and Zosyn prior Maintain aspiration precautions f/u labs and cults Supportive care D/w RN Attending Co-Sign Attending Co-Sign The patient was seen and interviewed as well as examined at the bedside. The chart was reviewed. The case was discussed. Agree with the plan of care. ALONSO DE BUTCHER Nov 06, 2018 08:37 JOSÉ LUIS TREADWELL MD Nov 06, 2018 12:54
--- NOTE | 2018-11-06 09:53 | PDOC ---
PROGRESS NOTES Chief Complaint Chief Complaint Acute on chronic respiratory failure Bilateral pleural effusion Advanced multiple sclerosis tracheostomy history of seizures PEG tube baclofen pump colostomy Suprapubic catheter S.p thoracentesis > 1L Plan: Continue with present AVAPS continuously at night. abg reviewed, T-SHIELD DURING DAY Continue broad-spectrum antibiotics ABG and CXR in morning Elevate hob Cont enteral nutrition She would need chronic nocturnal vent support . NIF -15 .will ask family service caseworker to arrange Trilogy at home History of Present Illness History of Present Illness Discussed with , DC plan, will need trach shield during day, concern about valve for speaking, though with her continued ventilatory requirements this is difficult Needs BIPAP at home based on NIF -15, had been discussed, necessary to continue at home cont the IV abx - merrem based on culture data 11/05: S/p thora 600 cc total. Opening eyes more to verbal today. Mumbling. No complaints. BP up a bit today. Had CO2 retention when taken off vent greater than 4 hours the past 2 days, on pressure support again with trach shield during day and vent at night as ultimate plan. Trilogy device started trial last night. CO2 better this morning on ABG. Plan: Pleural fluid without growth. Staph epidermidis blood culture positive, trach with pseudomonas, Urine with enterococcus and pseudomonas F/u ID recs Needs continuous ventilatory, BIPAP support such as trilogy on discharge. Training this today. Home walkthrough completed Vitals Vitals Vital Signs Date Time Temp Pulse Resp B/P (MAP) Pulse Ox O2 Delivery O2 Flow Rate FiO2 11/06/18 08:01 89 155/71 11/06/18 08:00 Trach Collar 11/06/18 08:00 98.7 23 94 98.7 11/06/18 07:29 3.0 Physical Exam Physical Exam GENERAL: Appears comfortable, alert, NAD HEENT: Oral cavity clear NECK: Tracheostomy in place. LUNGS: Improved aeration HEART: S1 and S2 regular. ABDOMEN: Obese, distended, soft and nontender. PEG tube. SPC (10/25) EXTREMITIES: Generalized edema. No cyanosis NEUROLOGICAL: Alert, quadriplegia. mouths words and nods SKIN: No rash RUE-PICC clean General: Alert, Cooperative, No acute distress Heart: Regular rate (SR), Other (distnat heart sounds) Lungs: Other (decrease bs) Abdomen: Soft Extremities: No cyanosis, Other (generalized edema trace to 1+) Skin: Other (suprapubic cath, PEG tube in place, trach site intact) Labs LABS Laboratory Tests Test 11/06/18 05:30 11/06/18 07:40 White Blood Count 5.0 x10^3/uL (4.0-11.0) Red Blood Count 3.58 x10^6/uL (3.50-5.40) Hemoglobin 11.1 g/dL (12.0-15.5) Hematocrit 33.0 % (36.0-47.0) Mean Corpuscular Volume 92 fL (79-100) Mean Corpuscular Hemoglobin 31 pg (25-35) Mean Corpuscular Hemoglobin Concent 34 g/dL (31-37) Red Cell Distribution Width 15.3 % (11.5-14.5) Platelet Count 404 x10^3/uL (140-400) Neutrophils (%) (Auto) 81 % (31-73) Lymphocytes (%) (Auto) 9 % (24-48) Monocytes (%) (Auto) 5 % (0-9) Eosinophils (%) (Auto) 3 % (0-3) Basophils (%) (Auto) 1 % (0-3) Neutrophils # (Auto) 4.1 x10^3uL (1.8-7.7) Lymphocytes # (Auto) 0.5 x10^3/uL (1.0-4.8) Monocytes # (Auto) 0.2 x10^3/uL (0.0-1.1) Eosinophils # (Auto) 0.2 x10^3/uL (0.0-0.7) Basophils # (Auto) 0.1 x10^3/uL (0.0-0.2) O2 Saturation 96 % (92-99) Arterial Blood pH 7.39 (7.35-7.45) Arterial Blood pCO2 at Patient Temp 51 mmHg (35-46) Arterial Blood pO2 at Patient Temp 84 mmHg (65-108) Arterial Blood HCO3 30 mmol/L (21-28) Arterial Blood Base Excess 4 mmol/L (-3-3) FiO2 32% trilogy Assessment and Plan Assessmemt and Plan Problems Medical Problems: (1) Hypercapnic respiratory failure Status: Acute Comment Review of Relevant I have reviewed the following items lucila (where applicable) has been applied. Labs Laboratory Tests Test 11/05/18 05:50 11/06/18 05:30 11/06/18 07:40 White Blood Count 5.8 x10^3/uL (4.0-11.0) 5.0 x10^3/uL (4.0-11.0) Red Blood Count 3.42 x10^6/uL (3.50-5.40) 3.58 x10^6/uL (3.50-5.40) Hemoglobin 10.4 g/dL (12.0-15.5) 11.1 g/dL (12.0-15.5) Hematocrit 31.8 % (36.0-47.0) 33.0 % (36.0-47.0) Mean Corpuscular Volume 93 fL (79-100) 92 fL (79-100) Mean Corpuscular Hemoglobin 30 pg (25-35) 31 pg (25-35) Mean Corpuscular Hemoglobin Concent 33 g/dL (31-37) 34 g/dL (31-37) Red Cell Distribution Width 15.1 % (11.5-14.5) 15.3 % (11.5-14.5) Platelet Count 368 x10^3/uL (140-400) 404 x10^3/uL (140-400) Neutrophils (%) (Auto) 80 % (31-73) 81 % (31-73) Lymphocytes (%) (Auto) 10 % (24-48) 9 % (24-48) Monocytes (%) (Auto) 6 % (0-9) 5 % (0-9) Eosinophils (%) (Auto) 3 % (0-3) 3 % (0-3) Basophils (%) (Auto) 1 % (0-3) 1 % (0-3) Neutrophils # (Auto) 4.6 x10^3uL (1.8-7.7) 4.1 x10^3uL (1.8-7.7) Lymphocytes # (Auto) 0.6 x10^3/uL (1.0-4.8) 0.5 x10^3/uL (1.0-4.8) Monocytes # (Auto) 0.3 x10^3/uL (0.0-1.1) 0.2 x10^3/uL (0.0-1.1) Eosinophils # (Auto) 0.2 x10^3/uL (0.0-0.7) 0.2 x10^3/uL (0.0-0.7) Basophils # (Auto) 0.0 x10^3/uL (0.0-0.2) 0.1 x10^3/uL (0.0-0.2) O2 Saturation 96 % (92-99) Arterial Blood pH 7.39 (7.35-7.45) Arterial Blood pCO2 at Patient Temp 51 mmHg (35-46) Arterial Blood pO2 at Patient Temp 84 mmHg (65-108) Arterial Blood HCO3 30 mmol/L (21-28) Arterial Blood Base Excess 4 mmol/L (-3-3) FiO2 32% trilogy Laboratory Tests Test 11/06/18 05:30 11/06/18 07:40 White Blood Count 5.0 x10^3/uL (4.0-11.0) Red Blood Count 3.58 x10^6/uL (3.50-5.40) Hemoglobin 11.1 g/dL (12.0-15.5) Hematocrit 33.0 % (36.0-47.0) Mean Corpuscular Volume 92 fL (79-100) Mean Corpuscular Hemoglobin 31 pg (25-35) Mean Corpuscular Hemoglobin Concent 34 g/dL (31-37) Red Cell Distribution Width 15.3 % (11.5-14.5) Platelet Count 404 x10^3/uL (140-400) Neutrophils (%) (Auto) 81 % (31-73) Lymphocytes (%) (Auto) 9 % (24-48) Monocytes (%) (Auto) 5 % (0-9) Eosinophils (%) (Auto) 3 % (0-3) Basophils (%) (Auto) 1 % (0-3) Neutrophils # (Auto) 4.1 x10^3uL (1.8-7.7) Lymphocytes # (Auto) 0.5 x10^3/uL (1.0-4.8) Monocytes # (Auto) 0.2 x10^3/uL (0.0-1.1) Eosinophils # (Auto) 0.2 x10^3/uL (0.0-0.7) Basophils # (Auto) 0.1 x10^3/uL (0.0-0.2) O2 Saturation 96 % (92-99) Arterial Blood pH 7.39 (7.35-7.45) Arterial Blood pCO2 at Patient Temp 51 mmHg (35-46) Arterial Blood pO2 at Patient Temp 84 mmHg (65-108) Arterial Blood HCO3 30 mmol/L (21-28) Arterial Blood Base Excess 4 mmol/L (-3-3) FiO2 32% trilogy Microbiology 10/26/18 Blood Culture - Final, Complete NO GROWTH AFTER 5 DAYS 10/27/18 Anaerobic/Aerobic Culture - Final, Complete 10/27/18 Anaerobic Culture Result 1 (NANDO) - Final, Complete 10/27/18 Aerobic Culture - Final, Complete 10/27/18 Aerobic Culture Result 1 (NANDO) - Final, Complete 10/27/18 Gram Stain - Final, Complete 10/27/18 Gram Stain Result 1 (NANDO) - Final, Complete 10/27/18 Gram Stain Result 2 (NANDO) - Final, Complete 11/02/18 - Final, Complete 11/02/18 - Final, Complete 11/02/18 - Final, Complete 11/02/18 Gram Stain Evaluation - Final, Complete 11/02/18 Sputum Culture - Final, Complete 11/02/18 Sputum Result 1 - Final, Complete 11/02/18 Antimicrobic Susceptibility - Final, Complete 10/25/18 Urine Culture - Final, Complete 10/25/18 Urine Culture Result 1 (NANDO) - Final, Complete 10/25/18 Urine Culture Result 2 (NANDO) - Final, Complete 10/25/18 Antimicrobic Susceptibility - Final, Complete 10/27/18 Anaerobic/Aerobic Culture - Final, Complete 10/27/18 Anaerobic Culture Result 1 (NANDO) - Final, Complete 10/27/18 Aerobic Culture - Final, Complete 10/27/18 Aerobic Culture Result 1 (NANDO) - Final, Complete 10/27/18 Antimicrobic Susceptibility - Final, Complete 10/27/18 Gram Stain - Final, Complete 10/27/18 Gram Stain Result 1 (NANDO) - Final, Complete 10/27/18 Gram Stain Result 2 (NANDO) - Final, Complete Medications Current Medications Sodium Chloride 1,000 ml @ 1,000 mls/hr Q1H IV Last administered on 10/25/18at 19:04; Start 10/25/18 at 17:28; Stop 10/25/18 at 18:27; Status DC Albuterol/ Ipratropium (Duoneb) 3 ml 1X ONCE NEB Last administered on at 17:53; Start 10/25/18 at 17:30; Stop 10/25/18 at 17:31; Status DC Methylprednisolone Sodium Succinate (SOLU-Medrol 125MG VIAL) 125 mg 1X ONCE IV Last administered on 10/25/18at 19:04; Start 10/25/18 at 17:30; Stop 10/25/18 at 17:31; Status DC Ceftriaxone Sodium (Rocephin) 1 gm 1X ONCE IVP Last administered on 10/25/18at 20:24; Start 10/25/18 at 19:00; Stop 10/25/18 at 19:02; Status DC Ondansetron HCl (Zofran) 4 mg PRN Q8HRS PRN IV NAUSEA/VOMITING; Start 10/25/18 at 20:15; Stop 10/26/18 at 20:14; Status DC Sodium Chloride 1,000 ml @ 126 mls/hr Q7H57M IV ; Start 10/25/18 at 20:07; Stop 10/26/18 at 07:12; Status DC Acetaminophen (Tylenol) 650 mg 1X ONCE PEG Last administered on 10/26/18at 04:59 ; Start 10/26/18 at 04:30; Stop 10/26/18 at 04:32; Status DC Piperacillin Sod/ Tazobactam Sod (Zosyn Per Pharmacy) 1 each PRN DAILY PRN MC SEE COMMENTS; Start 10/26/18 at 07:15; Status Cancel Vancomycin HCl (Vanco Per Pharmacy) 1 each PRN DAILY PRN MC SEE COMMENTS Last administered on 10/31/18at 17:49; Start 10/26/18 at 07:15; Stop 11/01/18 at 09:17 ; Status DC Piperacillin Sod/ Tazobactam Sod 3.375 gm/Sodium Chloride 50 ml @ 100 mls/hr Q6HRS IV Last administered on 11/01/18at 06:01; Start 10/26/18 at 08:00; Stop at 09:30; Status DC Vancomycin HCl 1.75 gm/Sodium Chloride 500 ml @ 250 mls/hr 1X ONCE IV Last administered on 10/26/18 09:25; Start 10/26/18 at 08:00; Stop 10/26/18 at 09:59; Status DC Azithromycin (Zithromax) 250 mg DAILY PO ; Start 10/27/18 at 09:00; Status UNV Baclofen (Lioresal) 10 mg TID PO Last administered on 11/06/18at 08:00; Start at 14:00 Diazepam (Valium) 2 mg TID PO Last administered on 11/06/18at 08:00; Start at 14:00 Diltiazem HCl (Cardizem) 30 mg QHS PO Last administered on 11/05/18at 21:39; Start 10/26/18 at 21:00 Estradiol (Climara Weekly) 1 mg WEEKLY TD ; Start 11/02/18 at 09:00; Stop at 09:00; Status DC Levetiracetam (Keppra) 750 mg BID PO Last administered on 11/06/18at 08:00; Start 10/26/18 at 12:00 Metoprolol Tartrate (Lopressor) 25 mg BID PO Last administered on 11/06/18at 08: 01; Start 10/26/18 at 12:00 Sodium Monofluorophosphate (Fleet Adult) 133 ml DAILY PRN RC CONSTIPATION, 2ND CHOICE NE Last administered on 11/01/18at 12:29; Start 10/26/18 at 11:15 Nystatin (Nystop) 1 parag PRN BID PRN TP RASH; Start 10/26/18 at 11:15; Stop 10/27 at 10:35; Status DC Acetaminophen (Tylenol) 500 mg PRN Q6HRS PRN PO MILD PAIN / TEMP; Start at 11:30 Non-Formulary Medication (Cran/C/B.coag/ Fos/L.acid/L.rha (Probiotic Plus & Cranberry Cap)) 1 each BID PO ; Start 10/26/18 at 21:00; Status UNV Diltiazem HCl (Cardizem) 60 mg DAILY16 PO Last administered on 11/05/18at 16:46 ; Start 10/26/18 at 16:00 Diltiazem HCl (Cardizem) 60 mg DAILY07 PO Last administered on 11/06/18at 07:56 ; Start 10/27/18 at 07:00 Non-Formulary Medication (Levalbuterol Hcl ) 0.63 mg TID IH ; Start 10/26/18 at 14:00; Status UNV Non-Formulary Medication (Levalbuterol Hcl (Xopenex)) 1 vial TID NEB ; Start 10/26/18 at 14:00; Status UNV Non-Formulary Medication (Modafinil (Provigil)) 200 mg DAILY PO Last administered on 11/06/18at 08:37; Start 10/27/18 at 11:30 Non-Formulary Medication (Norethindrone (Karishma)) 0.35 mg DAILY PO ; Start 10/27 at 09:00; Status UNV Paroxetine HCl (Paxil) 10 mg DAILY PO Last administered on 11/06/18at 08:00; Start 10/26/18 at 12:00 Scopolamine (Transderm-Scop) 1 patch Q3DAYS TD Last administered on 11/05/18at 09:39; Start 10/27/18 at 09:00 Non-Formulary Medication (Tiotropium Picacho (Spiriva)) 18 mcg DAILY IH ; Start 10/27/18 at 09:00; Status UNV Albuterol/ Ipratropium (Duoneb) 3 ml RTQID NEB Last administered on 11/06/18at 07:28; Start 10/26/18 at 12:00 Albuterol Sulfate (Ventolin Neb Soln) 2.5 mg PRN TID PRN NEB SHORTNESS OF BREATH; Start 10/26/18 at 11:30 Vancomycin HCl 1 gm/Sodium Chloride 250 ml @ 250 mls/hr Q24H IV Last administered on 10/28/18at 09:51; Start 10/27/18 at 09:30; Stop 10/28/18 at 12:00 ; Status DC Vancomycin HCl (Vancomycin Trough Level) 1 each 1X ONCE MC Last administered on 10/28/18at 09:00; Start 10/28/18 at 09:00; Stop 10/28/18 at 09:01; Status DC Aspirin (Children'S Aspirin) 81 mg DAILYWBKFT PO Last administered on at 08:00; Start 10/26/18 at 14:30 Non-Formulary Medication 1 ea PRN TID PRN PO APPLY TO AFFECTED AREA Last administered on 11/01/18 08:33; Start 10/27/18 at 11:00 Vancomycin HCl 1.25 gm/Sodium Chloride 250 ml @ 167 mls/hr Q12H IV Last administered on 10/29/18 08:52; Start 10/28/18 at 22:00; Stop 10/29/18 at 22:05 ; Status DC Vancomycin HCl (Vancomycin Trough Level) 1 each 1X ONCE MC Last administered on 10/29/18at 21:30; Start 10/29/18 at 21:30; Stop 10/29/18 at 21:31; Status DC Vancomycin HCl 1 gm/Sodium Chloride 250 ml @ 250 mls/hr Q12H IV Last administered on 10/31/18at 06:07; Start 10/30/18 at 05:00; Stop 10/31/18 at 17:34 ; Status DC Vancomycin HCl (Vancomycin Trough Level) 1 each 1X ONCE MC Last administered on 10/31/18at 17:30; Start 10/31/18 at 17:30; Stop 10/31/18 at 17:34; Status DC Budesonide (Pulmicort) 0.5 mg RTBID NEB Last administered on 11/06/18at 07:28; Start 10/30/18 at 08:00 Docusate Sodium (Enemeez) 283 mg PRN DAILY PRN NE CONSTIPATION, 1ST CHOICE; Start 10/30/18 at 10:30 Vancomycin HCl 750 mg/Sodium Chloride 250 ml @ 250 mls/hr Q12H IV Last administered on 11/01/18at 08:27; Start 10/31/18 at 20:00; Stop 11/01/18 at 09:14 ; Status DC Vancomycin HCl (Vancomycin Trough Level) 1 each 1X ONCE MC ; Start 11/02/18 at 07:30; Stop 11/02/18 at 07:30; Status DC Meropenem 500 mg/ Sodium Chloride 50 ml @ 100 mls/hr Q6HRS IV Last administered on 11/06/18at 05:50; Start 11/01/18 at 12:00 Atorvastatin Calcium (Lipitor) 80 mg QHS PO Last administered on 11/05/18 21: 39; Start 11/01/18 at 21:00 Estradiol (Climara Weekly) 0.1 mg WEEKLY TD Last administered on 11/02/18at 08: 40; Start 11/02/18 at 09:00 Enoxaparin Sodium (Lovenox 40mg Syringe) 40 mg Q24H SQ Last administered on at 11:46; Start 11/02/18 at 11:00 Hydralazine HCl (Apresoline Inj) 10 mg PRN Q6HRS PRN IVP ELEVATED BP, SEE COMMENTS Last administered on 11/03/18at 14:29; Start 11/03/18 at 14:00 Metoprolol Tartrate (Lopressor Vial) 10 mg PRN Q6HRS PRN IVP HYPERTENSION, SEE COMMENTS; Start 11/03/18 at 17:00 Furosemide (Lasix) 40 mg 1X ONCE IVP Last administered on 11/03/18at 21:00; Start 11/03/18 at 21:00; Stop 11/03/18 at 21:01; Status DC Vitamin A/Vitamin D (Vitamin A & D Ointment) 1 parag PRN Q1HR PRN TP SKIN PROTECTION Last administered on 11/05/18 09:27; Start 11/04/18 at 13:45 Alteplase, Recombinant (Cathflo For Central Catheter Clearance) 1 mg 1X ONCE INT CAT Last administered on 11/05/18at 20:17; Start 11/05/18 at 20:00; Stop at 20:09; Status DC Alteplase, Recombinant (Cathflo For Central Catheter Clearance) 1 mg 1X ONCE INT CAT Last administered on 11/05/18at 20:17; Start 11/05/18 at 20:00; Stop at 20:09; Status DC Alteplase, Recombinant (Cathflo For Central Catheter Clearance) 1 mg 1X ONCE INT CAT Last administered on 11/05/18at 20:17; Start 11/05/18 at 20:00; Stop at 20:09; Status DC Active Scripts Active Reported Atorvastatin Calcium 80 Mg Tablet 80 Mg PO HS Cardizem Tablet (Diltiazem Hcl) 30 Mg Tablet 30 Mg PO HS PRN Enema Ready To Use (Na Phos,M-B/Na Phos,Di-Ba) 133 Ml Enema 133 Ml RC Acetaminophen 500 Mg Tablet 1 Tab PO Q6HRS Probiotic Plus & Cranberry Cap (Cran/C/B.coag/Fos/L.acid/L.rha) 1 Each Capsule 1 Each PO BID Azithromycin Tablet (Azithromycin) 250 Mg Tablet 250 Mg PO DAILY Estradiol Transdermal Patch (Estradiol) 1 Each Patch.tdwk 1 Each TD BID WEEKLY Next dose 06/30/17 Karishma (Norethindrone) 0.35 Mg Tablet 0.35 Mg PO DAILY Keppra (Levetiracetam) 500 Mg Tablet 750 Mg PO BID Cardizem Tablet (Diltiazem Hcl) 60 Mg Tablet 60 Mg PO DAILY16 Metoprolol Tartrate 25 Mg Tablet 1 Tab PO BID Xopenex (Levalbuterol Hcl) 0.63 Mg/3 Ml Vial.neb 1 Vial NEB TID Valium (Diazepam) 2 Mg Tablet 2 Mg PO TID Transderm-Scop (Scopolamine) 1 Each Patch.td72 1 Each TD Q3DAYS Indication: secretions Next dose: 06/30/17 am Nystop (Nystatin) 60 Gm Powder 60 Gm TP PRN Indication: rash NExt dose: as needed Levalbuterol Hcl 0.63 Mg/3 Ml Vial.neb 0.63 Mg IH TID Spiriva (Tiotropium Picacho) 18 Mcg Cap.w.dev 18 Mcg IH DAILY Diltiazem Hcl Tablet (Diltiazem Hcl) 60 Mg Tablet 60 Mg PO DAILY07 Provigil (Modafinil) 200 Mg Tablet 200 Mg PO DAILY Paxil (Paroxetine Hcl) 10 Mg/5 Ml Oral.susp 10 Mg PO DAILY Baclofen 10 Mg Tablet 10 Mg PO TID Vitals/I & O Vital Sign - Last 24 Hours 11/05/18 11/05/18 11/05/18 11/05/18 10:00 11:00 12:00 12:00 Temp 97.9 97.9 Pulse 110 102 98 Resp 22 21 22 B/P (MAP) 175/67 (103) 148/61 (90) 140/63 (88) Pulse Ox 99 99 91 O2 Delivery BiPAP/CPAP Tracheal Collar Tracheal Collar Trach Collar 11/05/18 11/05/18 11/05/18 11/05/18 12:09 13:00 14:00 15:00 Pulse 98 101 102 Resp 21 23 B/P (MAP) 150/62 (91) 130/59 (82) 149/71 (97) Pulse Ox 96 92 90 87 O2 Delivery Tracheal Collar Tracheal Collar Tracheal Collar Tracheal Collar O2 Flow Rate 10.0 11/05/18 11/05/18/11/05/18 16:00 16:00 16:11 16:46 Temp 97.8 97.8 Pulse 100 98 Resp 22 B/P (MAP) 141/64 (89) 141/64 Pulse Ox 91 92 O2 Delivery Trach Collar Tracheal Collar Tracheal Collar O2 Flow Rate 10.0 11/05/18 11/05/18 11/05/18 11/05/18 17:00 18:00 19:00 19:45 Temp 97.8 97.8 Pulse 98 102 107 Resp 21 21 B/P (MAP) 143/61 (88) 122/51 (74) 138/61 (86) Pulse Ox 94 92 90 O2 Delivery Tracheal Collar Tracheal Collar Tracheal Collar Trach Collar 11/05/18 11/05/18 11/05/18 11/05/18 19:49 20:00 21:00 21:18 Pulse 104 102 Resp 21 19 B/P (MAP) 141/61 (87) 123/59 (80) Pulse Ox 90 91 95 94 O2 Delivery Tracheal Collar Tracheal Collar Tracheal Collar BiPAP/CPAP O2 Flow Rate 10.0 5.0 11/05/18 11/05/18 11/05/18 11/05/18 21:39 21:40 22:00 23:00 Pulse 98 98 94 77 Resp 19 15 B/P (MAP) 123/59 123/59 135/63 (87) 115/57 (76) Pulse Ox 100 100 O2 Delivery trilogy trilogy O2 Flow Rate 5.0 5.0 11/05/18 11/06/18 411/06/18 23:44 00:00 00:00 01:00 Temp 97.7 97.7 Pulse 80 80 Resp 15 18 B/P (MAP) 131/67 (88) 144/63 (90) Pulse Ox 100 100 100 O2 Delivery BiPAP/CPAP trilogy trilogy O2 Flow Rate 5.0 5.0 5.0 5.0 11/06/18 11/06/18 11/06/18 4 01:04 02:00 03:00 03:47 Pulse 85 76 Resp 18 16 B/P (MAP) 136/65 (88) 119/64 (82) Pulse Ox 100 100 98 100 O2 Delivery BiPAP/CPAP trilogy trilogy BiPAP/CPAP O2 Flow Rate 4.0 5.0 5.0 4.0 11/06/18 11/06/18 11/06/18 11/06/18 04:00 04:00 05:00 06:00 Temp 98.0 98.0 Pulse 84 83 78 Resp 18 16 15 B/P (MAP) 126/66 (86) 144/70 (94) 147/60 (89) Pulse Ox 98 99 99 O2 Delivery trilogy trilogy trilogy O2 Flow Rate 5.0 5.0 5.0 5.0 11/06/18 11/06/18 11/06/18 11/06/18 07:00 07:29 07:56 08:00 Temp 98.7 98.7 Pulse 89 89 89 Resp 16 23 B/P (MAP) 155/71 (99) 155/71 146/78 (100) Pulse Ox 99 100 94 O2 Delivery trilogy BiPAP/CPAP Tracheal Collar O2 Flow Rate 5.0 3.0 11/06/18 11/06/18 08:00 08:01 Pulse 89 B/P (MAP) 155/71 O2 Delivery Trach Collar Intake and Output 11/05/18 11/05/18 11/06/18 14:59 22:59 06:59 Intake Total 200 ml 1184 ml 1346 ml Output Total 300 ml 1475 ml Balance 200 ml 884 ml -129 ml FLAQUITO LIRA MD Nov 06, 2018 09:53
[2018-11-06] MEDS: ENOXAPARIN 40 MG/0.4 ML SYRINGE. SQ SCH (11:37)
[2018-11-06] MEDS: CEFEPIME HCL IV Push 1 GM VIAL. IVP SCH ×2 (14:20→21:38)
[2018-11-06] MEDS: ATORVASTATIN CALCIUM 40 MG TABLET. PO SCH (20:42)
[2018-11-07] VITALS (25 sets, daily range): BP systolic 91–167; BP diastolic 49–94
[2018-11-07] MEDS: CEFEPIME HCL IV Push 1 GM VIAL. IVP SCH ×3 (05:42→22:24)
[2018-11-07 06:29] LABS: BASO # 0.1 x10^3/uL (0.0-0.2); BASO % 1 % (0-3); EOS # 0.2 x10^3/uL (0.0-0.7); EOS % 5 % (0-3); HEMATOCRIT 32.7 % (36.0-47.0); HEMOGLOBIN 10.7 g/dL (12.0-15.5); LYMPH # 0.5 x10^3/uL (1.0-4.8); LYMPH % 12 % (24-48); MEAN CORPUSCULAR HEMOGLOBIN 30 pg (25-35); MEAN CORPUSCULAR HGB CONC 33 g/dL (31-37); MEAN CORPUSCULAR VOLUME 93 fL (79-100); MONO # 0.3 x10^3/uL (0.0-1.1); MONO % 6 % (0-9); NEUT # 3.4 x10^3uL (1.8-7.7); NEUT % 76 % (31-73); PLATELET COUNT 402 x10^3/uL (140-400); RED BLOOD COUNT 3.53 x10^6/uL (3.50-5.40); RED CELL DISTRIBUTION WIDTH 15.2 % (11.5-14.5); WHITE BLOOD COUNT 4.5 x10^3/uL (4.0-11.0)
--- NOTE | 2018-11-07 07:04 | PDOC ---
PULMONARY PROGRESS NOTES Subjective on trilogy, alert, no sob, has cough, no pain s/p repeat right thoracentesis 11/04 Vitals Vital Signs Date Time Temp Pulse Resp B/P (MAP) Pulse Ox O2 Delivery O2 Flow Rate FiO2 11/07/18 06:00 91 14 110/56 (74) 94 Ventilator 11/07/18 04:24 2.0 11/07/18 04:00 98.3 98.3 Comments as mentioned as above other sys otherwise neg ROS: No Nausea, No Chest Pain General: No acute distress HEENT: Other (nc at perrl nose throat clear, neck, trach site ok no lad, no thyromegaly) Lungs: Other (decrease bs) Cardiovascular: S1, S2 Abdomen: Soft, Non-tender, Other (no mass) Neuro Exam: Alert Extremities: Other (edema) Skin: Warm Labs Laboratory Tests Test 11/06/18 05:30 11/06/18 07:40 11/07/18 05:45 White Blood Count 5.0 x10^3/uL (4.0-11.0) 4.5 x10^3/uL (4.0-11.0) Red Blood Count 3.58 x10^6/uL (3.50-5.40) 3.53 x10^6/uL (3.50-5.40) Hemoglobin 11.1 g/dL (12.0-15.5) 10.7 g/dL (12.0-15.5) Hematocrit 33.0 % (36.0-47.0) 32.7 % (36.0-47.0) Mean Corpuscular Volume 92 fL (79-100) 93 fL (79-100) Mean Corpuscular Hemoglobin 31 pg (25-35) 30 pg (25-35) Mean Corpuscular Hemoglobin Concent 34 g/dL (31-37) 33 g/dL (31-37) Red Cell Distribution Width 15.3 % (11.5-14.5) 15.2 % (11.5-14.5) Platelet Count 404 x10^3/uL (140-400) 402 x10^3/uL (140-400) Neutrophils (%) (Auto) 81 % (31-73) 76 % (31-73) Lymphocytes (%) (Auto) 9 % (24-48) 12 % (24-48) Monocytes (%) (Auto) 5 % (0-9) 6 % (0-9) Eosinophils (%) (Auto) 3 % (0-3) 5 % (0-3) Basophils (%) (Auto) 1 % (0-3) 1 % (0-3) Neutrophils # (Auto) 4.1 x10^3uL (1.8-7.7) 3.4 x10^3uL (1.8-7.7) Lymphocytes # (Auto) 0.5 x10^3/uL (1.0-4.8) 0.5 x10^3/uL (1.0-4.8) Monocytes # (Auto) 0.2 x10^3/uL (0.0-1.1) 0.3 x10^3/uL (0.0-1.1) Eosinophils # (Auto) 0.2 x10^3/uL (0.0-0.7) 0.2 x10^3/uL (0.0-0.7) Basophils # (Auto) 0.1 x10^3/uL (0.0-0.2) 0.1 x10^3/uL (0.0-0.2) O2 Saturation 96 % (92-99) Arterial Blood pH 7.39 (7.35-7.45) Arterial Blood pCO2 at Patient Temp 51 mmHg (35-46) Arterial Blood pO2 at Patient Temp 84 mmHg (65-108) Arterial Blood HCO3 30 mmol/L (21-28) Arterial Blood Base Excess 4 mmol/L (-3-3) FiO2 32% trilog Laboratory Tests Test 11/06/18 07:40 11/07/18 05:45 O2 Saturation 96 % (92-99) Arterial Blood pH 7.39 (7.35-7.45) Arterial Blood pCO2 at Patient Temp 51 mmHg (35-46) Arterial Blood pO2 at Patient Temp 84 mmHg (65-108) Arterial Blood HCO3 30 mmol/L (21-28) Arterial Blood Base Excess 4 mmol/L (-3-3) FiO2 32% trilogy White Blood Count 4.5 x10^3/uL (4.0-11.0) Red Blood Count 3.53 x10^6/uL (3.50-5.40) Hemoglobin 10.7 g/dL (12.0-15.5) Hematocrit 32.7 % (36.0-47.0) Mean Corpuscular Volume 93 fL (79-100) Mean Corpuscular Hemoglobin 30 pg (25-35) Mean Corpuscular Hemoglobin Concent 33 g/dL (31-37) Red Cell Distribution Width 15.2 % (11.5-14.5) Platelet Count 402 x10^3/uL (140-400) Neutrophils (%) (Auto) 76 % (31-73) Lymphocytes (%) (Auto) 12 % (24-48) Monocytes (%) (Auto) 6 % (0-9) Eosinophils (%) (Auto) 5 % (0-3) Basophils (%) (Auto) 1 % (0-3) Neutrophils # (Auto) 3.4 x10^3uL (1.8-7.7) Lymphocytes # (Auto) 0.5 x10^3/uL (1.0-4.8) Monocytes # (Auto) 0.3 x10^3/uL (0.0-1.1) Eosinophils # (Auto) 0.2 x10^3/uL (0.0-0.7) Basophils # (Auto) 0.1 x10^3/uL (0.0-0.2) Medications Active Scripts Medications Dose Route/Sig Max Daily Dose Days Date Category Dose Instructions Cardizem Tablet (Diltiazem Hcl) 30 Mg Tablet 30 Mg PO HS PRN 10/26/18 Reported Enema Ready To Use (Na Phos,M-B/Na Phos,Di-Ba) 133 Ml Enema 133 Ml RC 01/30/17 Reported Acetaminophen 500 Mg Tablet 1 Tab PO Q6HRS 01/30/17 Reported Probiotic Plus & Cranberry Cap (Cran/C/B.coag/Fos/L.acid/L.rha) 1 Each Capsule 1 Each PO BID 01/30/17 Reported Azithromycin Tablet (Azithromycin) 250 Mg Tablet 250 Mg PO DAILY 01/30/17 Reported Estradiol Transdermal Patch (Estradiol) 1 Each Patch.tdwk 1 Each TD BID WEEKLY 01/30/17 Reported Next dose 06/30/17 Karishma (Norethindrone) 0.35 Mg Tablet 0.35 Mg PO DAILY 01/30/17 Reported Keppra (Levetiracetam) 500 Mg Tablet 750 Mg PO BID 01/30/17 Reported Cardizem Tablet (Diltiazem Hcl) 60 Mg Tablet 60 Mg PO DAILY16 06/12/15 Reported Metoprolol Tartrate 25 Mg Tablet 1 Tab PO BID 12/28/14 Reported Xopenex (Levalbuterol Hcl) 0.63 Mg/3 Ml Vial.neb 1 Vial NEB TID 12/27/14 Reported Valium (Diazepam) 2 Mg Tablet 2 Mg PO TID 10/11/13 Reported Transderm-Scop (Scopolamine) 1 Each Patch.td72 1 Each TD Q3DAYS 07/28/13 Reported Indication: secretions Next dose: 06/30/17 am Nystop (Nystatin) 60 Gm Powder 60 Gm TP PRN 07/28/13 Reported Indication: rash NExt dose: as needed Levalbuterol Hcl 0.63 Mg/3 Ml Vial.neb 0.63 Mg IH TID 07/28/13 Reported Spiriva (Tiotropium [place]) 18 Mcg Cap.w.dev 18 Mcg IH DAILY 07/28/13 Reported Diltiazem Hcl Tablet (Diltiazem Hcl) 60 Mg Tablet 60 Mg PO DAILY07 07/28/13 Reported Provigil (Modafinil) 200 Mg Tablet 200 Mg PO DAILY 07/28/13 Reported Paxil (Paroxetine Hcl) 10 Mg/5 Ml Oral.susp 10 Mg PO DAILY 07/28/13 Reported Baclofen 10 Mg Tablet 10 Mg PO TID 07/28/13 Reported Comments cxr reviewed, 11/03 moderate bilateral effusions, no change URINE CULTURE Final Final report URINE CULTURE RES 1 Final Comment Pseudomonas aeruginosa Greater than 100,000 colony forming units per mL URINE CULTURE RES 2 Final Enterococcus faecalis 25,000-50,000 colony forming units per mL ANTIMICROBIAL SUSCEPTIBILITY Final Comment S = Susceptible; I = Intermediate; R = Resistant P = Positive; N = Negative MICS are expressed in micrograms per mL Antibiotic RSLT#1 RSLT#2 RSLT#3 RSLT#4 Amikacin S =16 Cefepime I =16 Ceftazidime S =4 Ciprofloxacin R>=4 R>=8 Gentamicin I =8 Imipenem S =4 Levofloxacin R>=8 R>=8 Meropenem S =1 Nitrofurantoin S<=16 Penicillin R =16 Piperacillin S =32 Tetracycline R>=16 Ticarcillin R>=128 Tobramycin S<=1 Vancomycin S =1 Performed at: [address], [place], [place] [id number] Microbial Specialist: RELL Marques MD, Phone: [phone] RUN DATE: 10/30/18 PAGE 1 RUN TIME: 1518 [facility] [address] [place] [address] Judson Roy M.D., [employer] PATIENT: MINNIE BENZ ACCT: [id number] LOC: [facility] U : [id number] AGE/SX: 68/F ROOM: 112 REG : 10/25/[address]: RIGOBERTO VORA III DO : 1950 BED: 1 DIS : STATUS: ADM IN TLOC: SPEC #: [id number] ALVARO: 10/27/18 STATUS: RES REQ #: [id number] RECD: 10/27/[address] [facility] [address]: DARWIN PITTS MD SOURCE: [facility] SITE ENTR: 10/27/18 [facility] [address]: ANIKET LUNA MD [facility]: RIGOBERTO VORA III, AMAN U MD KURTZ,JESSICA FRASER,BEVERLY Jones MD ORDERED: ANAER/AEROB/GS Procedure Result ANAEROBIC-AEROBIC CULTURE PENDING ANAEROBIC RES 1 PENDING AEROBIC CULT Final Final report AEROBIC RES 1 Final Comment Pseudomonas aeruginosa 1+ ANTIMICROBIAL SUSCEPTIBILITY Final Comment S = Susceptible; I = Intermediate; R = Resistant P = Positive; N = Negative MICS are expressed in micrograms per mL Antibiotic RSLT#1 RSLT#2 RSLT#3 RSLT#4 Amikacin S<=2 Cefepime R>=64 Ceftazidime R>=64 Ciprofloxacin R>=4 Gentamicin S<=1 Imipenem I =8 Levofloxacin R>=8 Meropenem S =4 Piperacillin R>=128 Ticarcillin R>=128 Tobramycin S<=1 Impression . 1. Acute on chronic hypercapnic and hypoxic respiratory failure secondary to multifactorial etiologies including sepsis , effusions 2. The patient with severe/advanced multiple sclerosis with chronic respiratory failure. 3. The patient with prior thoracentesis and prior multiple bronchoscopies. now with increasing bilateral effusions, s/p thoracentesis bilateral and then right side 11/04 again 4. Fever resolved 5. BC + 1/2 G + cocci - MRSE 10/25. 6. UTI w/ PSA and Enterococcus (PCN- R). SPC last changed 10/25 7. Trach site infection with growth of PSA, 10/25 Plan . 1. Continue with present triology continuously at night. TM DURING DAY as tolerated. may need trach change bf dc, have shiley cuffed #4 and 6 available at bedside 2. Continue broad-spectrum antibiotics per ID, Merrem since 11/01 was on IV Vanc and Zosyn prior 3. CXR reviewed. Moderate effusions,. s/p right repeat right thoracentesis 11/04 , am cxr 4. s/p bilateral thoracentesis.on admit. transudate, cxs neg, 5. elevate hob 6. d/w pt. 7. enteral nutrition 8. She would need chronic nocturnal vent support . NIF -15 . telehealth case manager to arrange Triligy at home/ teach 9. BD, readdress code status, ? dnr discussed w rn, rt/ SHYAM ALCARAZ MD Nov 07, 2018 07:04
[2018-11-07] MEDS: dilTIAZem HCL 30 MG TABLET PO SCH ×3 (07:38→21:18)
[2018-11-07] MEDS: IPRATRPIUM/ALBUTEROL 0.5/2.5MG 3 ML NEBU. NEB SCH ×4 (08:01→20:29)
[2018-11-07] MEDS: BUDESONIDE 0.5 MG/2 ML NEBU. NEB SCH ×2 (08:01→20:29)
[2018-11-07] MEDS: diazePAM 2 MG TABLET PO SCH ×3 (08:30→21:20)
[2018-11-07] MEDS: levETIRAcetam 250 MG TABLET PO SCH ×2 (08:30→21:17)
[2018-11-07] MEDS: BACLOFEN 10 MG TABLET. PO SCH ×3 (08:30→21:17)
[2018-11-07] MEDS: ASPIRIN CHEWABLE 81 MG TABLET. PO SCH (08:30)
[2018-11-07] MEDS: PARoxetine 10 MG TABLET PO SCH (08:30)
[2018-11-07] MEDS: VITS A & D/LANOLIN TOPICAL OINTMENT 56GM TUBE. TP PRN (08:31)
[2018-11-07] MEDS: METOPROLOL TART IMMED RELEASE 25 MG TABLET. PO SCH ×2 (08:31→21:22)
--- NOTE | 2018-11-07 08:54 | PDOC ---
PROGRESS NOTES Chief Complaint Chief Complaint Acute on chronic respiratory failure Bilateral pleural effusion Advanced multiple sclerosis tracheostomy history of seizures PEG tube baclofen pump colostomy Suprapubic catheter S.p thoracentesis > 1L Plan: Continue with present AVAPS continuously at night. abg reviewed, T-SHIELD DURING DAY Continue broad-spectrum antibiotics ABG and CXR in morning Elevate hob Cont enteral nutrition She would need chronic nocturnal vent support . NIF -15 .will ask case picker to arrange Trilogy at home History of Present Illness History of Present Illness Discussed with , DC plan, will need trach shield during day, concern about valve for speaking, though with her continued ventilatory requirements this is difficult Needs BIPAP at home based on NIF -15, had been discussed, necessary to continue at home cont the IV abx - merrem based on culture data 11/05: S/p thora 600 cc total. Opening eyes more to verbal today. Mumbling. No complaints. BP up a bit today. Had CO2 retention when taken off vent greater than 4 hours the past 2 days, on pressure support again with trach shield during day and vent at night as ultimate plan. Trilogy device started trial last night. CO2 better this morning on ABG. Plan: Pleural fluid without growth. Staph epidermidis blood culture positive, trach with pseudomonas, Urine with enterococcus and pseudomonas F/u ID recs Needs continuous ventilatory, BIPAP support such as trilogy on discharge. Training this today. Home walkthrough completed Vitals Vitals Vital Signs Date Time Temp Pulse Resp B/P (MAP) Pulse Ox O2 Delivery O2 Flow Rate FiO2 11/07/18 08:31 92 131/62 11/07/18 08:05 50 Tracheal Collar 10.0 11/07/18 07:00 14 11/07/18 04:00 98.3 98.3 Physical Exam Physical Exam GENERAL: Appears comfortable, alert, NAD HEENT: Oral cavity clear NECK: Tracheostomy in place. LUNGS: Improved aeration HEART: S1 and S2 regular. ABDOMEN: Obese, distended, soft and nontender. PEG tube. SPC (10/25) EXTREMITIES: Generalized edema. No cyanosis NEUROLOGICAL: Alert, quadriplegia. mouths words and nods SKIN: No rash RUE-PICC clean General: Alert, Cooperative, No acute distress Heart: Regular rate (SR), Other (distnat heart sounds) Lungs: Other (decrease bs) Abdomen: Soft Extremities: No cyanosis, Other (generalized edema trace to 1+) Skin: Other (suprapubic cath, PEG tube in place, trach site intact) Labs LABS Laboratory Tests Test 11/07/18 05:45 White Blood Count 4.5 x10^3/uL (4.0-11.0) Red Blood Count 3.53 x10^6/uL (3.50-5.40) Hemoglobin 10.7 g/dL (12.0-15.5) Hematocrit 32.7 % (36.0-47.0) Mean Corpuscular Volume 93 fL (79-100) Mean Corpuscular Hemoglobin 30 pg (25-35) Mean Corpuscular Hemoglobin Concent 33 g/dL (31-37) Red Cell Distribution Width 15.2 % (11.5-14.5) Platelet Count 402 x10^3/uL (140-400) Neutrophils (%) (Auto) 76 % (31-73) Lymphocytes (%) (Auto) 12 % (24-48) Monocytes (%) (Auto) 6 % (0-9) Eosinophils (%) (Auto) 5 % (0-3) Basophils (%) (Auto) 1 % (0-3) Neutrophils # (Auto) 3.4 x10^3uL (1.8-7.7) Lymphocytes # (Auto) 0.5 x10^3/uL (1.0-4.8) Monocytes # (Auto) 0.3 x10^3/uL (0.0-1.1) Eosinophils # (Auto) 0.2 x10^3/uL (0.0-0.7) Basophils # (Auto) 0.1 x10^3/uL (0.0-0.2) Assessment and Plan Assessmemt and Plan Problems Medical Problems: (1) Hypercapnic respiratory failure Status: Acute Comment Review of Relevant I have reviewed the following items lucila (where applicable) has been applied. Labs Laboratory Tests Test 11/06/18 05:30 11/06/18 07:40 11/07/18 05:45 White Blood Count 5.0 x10^3/uL (4.0-11.0) 4.5 x10^3/uL (4.0-11.0) Red Blood Count 3.58 x10^6/uL (3.50-5.40) 3.53 x10^6/uL (3.50-5.40) Hemoglobin 11.1 g/dL (12.0-15.5) 10.7 g/dL (12.0-15.5) Hematocrit 33.0 % (36.0-47.0) 32.7 % (36.0-47.0) Mean Corpuscular Volume 92 fL (79-100) 93 fL (79-100) Mean Corpuscular Hemoglobin 31 pg (25-35) 30 pg (25-35) Mean Corpuscular Hemoglobin Concent 34 g/dL (31-37) 33 g/dL (31-37) Red Cell Distribution Width 15.3 % (11.5-14.5) 15.2 % (11.5-14.5) Platelet Count 404 x10^3/uL (140-400) 402 x10^3/uL (140-400) Neutrophils (%) (Auto) 81 % (31-73) 76 % (31-73) Lymphocytes (%) (Auto) 9 % (24-48) 12 % (24-48) Monocytes (%) (Auto) 5 % (0-9) 6 % (0-9) Eosinophils (%) (Auto) 3 % (0-3) 5 % (0-3) Basophils (%) (Auto) 1 % (0-3) 1 % (0-3) Neutrophils # (Auto) 4.1 x10^3uL (1.8-7.7) 3.4 x10^3uL (1.8-7.7) Lymphocytes # (Auto) 0.5 x10^3/uL (1.0-4.8) 0.5 x10^3/uL (1.0-4.8) Monocytes # (Auto) 0.2 x10^3/uL (0.0-1.1) 0.3 x10^3/uL (0.0-1.1) Eosinophils # (Auto) 0.2 x10^3/uL (0.0-0.7) 0.2 x10^3/uL (0.0-0.7) Basophils # (Auto) 0.1 x10^3/uL (0.0-0.2) 0.1 x10^3/uL (0.0-0.2) O2 Saturation 96 % (92-99) Arterial Blood pH 7.39 (7.35-7.45) Arterial Blood pCO2 at Patient Temp 51 mmHg (35-46) Arterial Blood pO2 at Patient Temp 84 mmHg (65-108) Arterial Blood HCO3 30 mmol/L (21-28) Arterial Blood Base Excess 4 mmol/L (-3-3) FiO2 32% trilogy Laboratory Tests Test 11/07/18 05:45 White Blood Count 4.5 x10^3/uL (4.0-11.0) Red Blood Count 3.53 x10^6/uL (3.50-5.40) Hemoglobin 10.7 g/dL (12.0-15.5) Hematocrit 32.7 % (36.0-47.0) Mean Corpuscular Volume 93 fL (79-100) Mean Corpuscular Hemoglobin 30 pg (25-35) Mean Corpuscular Hemoglobin Concent 33 g/dL (31-37) Red Cell Distribution Width 15.2 % (11.5-14.5) Platelet Count 402 x10^3/uL (140-400) Neutrophils (%) (Auto) 76 % (31-73) Lymphocytes (%) (Auto) 12 % (24-48) Monocytes (%) (Auto) 6 % (0-9) Eosinophils (%) (Auto) 5 % (0-3) Basophils (%) (Auto) 1 % (0-3) Neutrophils # (Auto) 3.4 x10^3uL (1.8-7.7) Lymphocytes # (Auto) 0.5 x10^3/uL (1.0-4.8) Monocytes # (Auto) 0.3 x10^3/uL (0.0-1.1) Eosinophils # (Auto) 0.2 x10^3/uL (0.0-0.7) Basophils # (Auto) 0.1 x10^3/uL (0.0-0.2) Microbiology 10/26/18 Blood Culture - Final, Complete NO GROWTH AFTER 5 DAYS 10/27/18 Anaerobic/Aerobic Culture - Final, Complete 10/27/18 Anaerobic Culture Result 1 (NANDO) - Final, Complete 10/27/18 Aerobic Culture - Final, Complete 10/27/18 Aerobic Culture Result 1 (NANDO) - Final, Complete 10/27/18 Gram Stain - Final, Complete 10/27/18 Gram Stain Result 1 (NANDO) - Final, Complete 10/27/18 Gram Stain Result 2 (NANDO) - Final, Complete 11/02/18 - Final, Complete 11/02/18 - Final, Complete 11/02/18 - Final, Complete 11/02/18 Gram Stain Evaluation - Final, Complete 11/02/18 Sputum Culture - Final, Complete 11/02/18 Sputum Result 1 - Final, Complete 11/02/18 Antimicrobic Susceptibility - Final, Complete 10/25/18 Urine Culture - Final, Complete 10/25/18 Urine Culture Result 1 (NANDO) - Final, Complete 10/25/18 Urine Culture Result 2 (NANDO) - Final, Complete 10/25/18 Antimicrobic Susceptibility - Final, Complete 10/27/18 Anaerobic/Aerobic Culture - Final, Complete 10/27/18 Anaerobic Culture Result 1 (NANDO) - Final, Complete 10/27/18 Aerobic Culture - Final, Complete 10/27/18 Aerobic Culture Result 1 (NANDO) - Final, Complete 10/27/18 Antimicrobic Susceptibility - Final, Complete 10/27/18 Gram Stain - Final, Complete 10/27/18 Gram Stain Result 1 (NANDO) - Final, Complete 10/27/18 Gram Stain Result 2 (NANDO) - Final, Complete Medications Current Medications Sodium Chloride 1,000 ml @ 1,000 mls/hr Q1H IV Last administered on 10/25/18 19:04; Start 10/25/18 at 17:28; Stop 10/25/18 at 18:27; Status DC Albuterol/ Ipratropium (Duoneb) 3 ml 1X ONCE NEB Last administered on at 17:53; Start 10/25/18 at 17:30; Stop 10/25/18 at 17:31; Status DC Methylprednisolone Sodium Succinate (SOLU-Medrol 125MG VIAL) 125 mg 1X ONCE IV Last administered on 10/25/18at 19:04; Start 10/25/18 at 17:30; Stop 10/25/18 at 17:31; Status DC Ceftriaxone Sodium (Rocephin) 1 gm 1X ONCE IVP Last administered on 10/25/18at 20:24; Start 10/25/18 at 19:00; Stop 10/25/18 at 19:02; Status DC Ondansetron HCl (Zofran) 4 mg PRN Q8HRS PRN IV NAUSEA/VOMITING; Start 10/25/18 at 20:15; Stop 10/26/18 at 20:14; Status DC Sodium Chloride 1,000 ml @ 126 mls/hr Q7H57M IV ; Start 10/25/18 at 20:07; Stop 10/26/18 at 07:12; Status DC Acetaminophen (Tylenol) 650 mg 1X ONCE PEG Last administered on 10/26/18at 04:59 ; Start 10/26/18 at 04:30; Stop 10/26/18 at 04:32; Status DC Piperacillin Sod/ Tazobactam Sod (Zosyn Per Pharmacy) 1 each PRN DAILY PRN MC SEE COMMENTS; Start 10/26/18 at 07:15; Status Cancel Vancomycin HCl (Vanco Per Pharmacy) 1 each PRN DAILY PRN MC SEE COMMENTS Last administered on 10/31/18at 17:49; Start 10/26/18 at 07:15; Stop 11/01/18 at 09:17 ; Status DC Piperacillin Sod/ Tazobactam Sod 3.375 gm/Sodium Chloride 50 ml @ 100 mls/hr Q6HRS IV Last administered on 11/01/18at 06:01; Start 10/26/18 at 08:00; Stop at 09:30; Status DC Vancomycin HCl 1.75 gm/Sodium Chloride 500 ml @ 250 mls/hr 1X ONCE IV Last administered on 10/26/18at 09:25; Start 10/26/18 at 08:00; Stop 10/26/18 at 09:59; Status DC Azithromycin (Zithromax) 250 mg DAILY PO ; Start 10/27/18 at 09:00; Status UNV Baclofen (Lioresal) 10 mg TID PO Last administered on 11/07/18at 08:30; Start at 14:00 Diazepam (Valium) 2 mg TID PO Last administered on 11/07/18at 08:30; Start at 14:00 Diltiazem HCl (Cardizem) 30 mg QHS PO Last administered on 11/06/18at 20:44; Start 10/26/18 at 21:00 Estradiol (Climara Weekly) 1 mg WEEKLY TD ; Start 11/02/18 at 09:00; Stop at 09:00; Status DC Levetiracetam (Keppra) 750 mg BID PO Last administered on 11/07/18at 08:30; Start 10/26/18 at 12:00 Metoprolol Tartrate (Lopressor) 25 mg BID PO Last administered on 11/07/18at 08: 31; Start 10/26/18 at 12:00 Sodium Monofluorophosphate (Fleet Adult) 133 ml DAILY PRN RC CONSTIPATION, 2ND CHOICE [place] Last administered on 11/01/18at 12:29; Start 10/26/18 at 11:15 Nystatin (Nystop) 1 parag PRN BID PRN TP RASH; Start 10/26/18 at 11:15; Stop 10/27 at 10:35; Status DC Acetaminophen (Tylenol) 500 mg PRN Q6HRS PRN PO MILD PAIN / TEMP; Start at 11:30 Non-Formulary Medication (Cran/C/B.coag/ Fos/L.acid/L.rha (Probiotic Plus & Cranberry Cap)) 1 each BID PO ; Start 10/26/18 at 21:00; Status UNV Diltiazem HCl (Cardizem) 60 mg DAILY16 PO Last administered on 11/06/18at 16:17 ; Start 10/26/18 at 16:00 Diltiazem HCl (Cardizem) 60 mg DAILY07 PO Last administered on 11/07/18at 07:38 ; Start 10/27/18 at 07:00 Non-Formulary Medication (Levalbuterol Hcl ) 0.63 mg TID IH ; Start 10/26/18 at 14:00; Status UNV Non-Formulary Medication (Levalbuterol Hcl (Xopenex)) 1 vial TID NEB ; Start 10/26/18 at 14:00; Status UNV Non-Formulary Medication (Modafinil (Provigil)) 200 mg DAILY PO Last administered on 11/07/18at 08:30; Start 10/27/18 at 11:30 Non-Formulary Medication (Norethindrone (Karishma)) 0.35 mg DAILY PO ; Start 10/27 at 09:00; Status UNV Paroxetine HCl (Paxil) 10 mg DAILY PO Last administered on 11/07/18at 08:30; Start 10/26/18 at 12:00 Scopolamine (Transderm-Scop) 1 patch Q3DAYS TD Last administered on 11/05/18at 09:39; Start 10/27/18 at 09:00 Non-Formulary Medication (Tiotropium Gillett (Spiriva)) 18 mcg DAILY IH ; Start 10/27/18 at 09:00; Status UNV Albuterol/ Ipratropium (Duoneb) 3 ml RTQID NEB Last administered on 11/07/18at 08:01; Start 10/26/18 at 12:00 Albuterol Sulfate (Ventolin Neb Soln) 2.5 mg PRN TID PRN NEB SHORTNESS OF BREATH; Start 10/26/18 at 11:30 Vancomycin HCl 1 gm/Sodium Chloride 250 ml @ 250 mls/hr Q24H IV Last administered on 10/28/18at 09:51; Start 10/27/18 at 09:30; Stop 10/28/18 at 12:00 ; Status DC Vancomycin HCl (Vancomycin Trough Level) 1 each 1X ONCE MC Last administered on 10/28/18 09:00; Start 10/28/18 at 09:00; Stop 10/28/18 at 09:01; Status DC Aspirin (Children'S Aspirin) 81 mg DAILYWBKFT PO Last administered on at 08:30; Start 10/26/18 at 14:30 Non-Formulary Medication 1 ea PRN TID PRN PO APPLY TO AFFECTED AREA Last administered on 11/01/18at 08:33; Start 10/27/18 at 11:00 Vancomycin HCl 1.25 gm/Sodium Chloride 250 ml @ 167 mls/hr Q12H IV Last administered on 10/29/18 08:52; Start 10/28/18 at 22:00; Stop 10/29/18 at 22:05 ; Status DC Vancomycin HCl (Vancomycin Trough Level) 1 each 1X ONCE MC Last administered on 10/29/18at 21:30; Start 10/29/18 at 21:30; Stop 10/29/18 at 21:31; Status DC Vancomycin HCl 1 gm/Sodium Chloride 250 ml @ 250 mls/hr Q12H IV Last administered on 10/31/18at 06:07; Start 10/30/18 at 05:00; Stop 10/31/18 at 17:34 ; Status DC Vancomycin HCl (Vancomycin Trough Level) 1 each 1X ONCE MC Last administered on 10/31/18at 17:30; Start 10/31/18 at 17:30; Stop 10/31/18 at 17:34; Status DC Budesonide (Pulmicort) 0.5 mg RTBID NEB Last administered on 11/07/18at 08:01; Start 10/30/18 at 08:00 Docusate Sodium (Enemeez) 283 mg PRN DAILY PRN [place] CONSTIPATION, 1ST CHOICE; Start 10/30/18 at 10:30 Vancomycin HCl 750 mg/Sodium Chloride 250 ml @ 250 mls/hr Q12H IV Last administered on 11/01/18at 08:27; Start 10/31/18 at 20:00; Stop 11/01/18 at 09:14 ; Status DC Vancomycin HCl (Vancomycin Trough Level) 1 each 1X ONCE MC ; Start 11/02/18 at 07:30; Stop 11/02/18 at 07:30; Status DC Meropenem 500 mg/ Sodium Chloride 50 ml @ 100 mls/hr Q6HRS IV Last administered on 11/06/18at 11:38; Start 11/01/18 at 12:00; Stop 11/06/18 at 12:53 ; Status DC Atorvastatin Calcium (Lipitor) 80 mg QHS PO Last administered on 11/06/18at 20: 42; Start 11/01/18 at 21:00 Estradiol (Climara Weekly) 0.1 mg WEEKLY TD Last administered on 11/02/18at 08: 40; Start 11/02/18 at 09:00 Enoxaparin Sodium (Lovenox 40mg Syringe) 40 mg Q24H SQ Last administered on at 11:37; Start 11/02/18 at 11:00 Hydralazine HCl (Apresoline Inj) 10 mg PRN Q6HRS PRN IVP ELEVATED BP, SEE COMMENTS Last administered on 11/03/18at 14:29; Start 11/03/18 at 14:00 Metoprolol Tartrate (Lopressor Vial) 10 mg PRN Q6HRS PRN IVP HYPERTENSION, SEE COMMENTS; Start 11/03/18 at 17:00 Furosemide (Lasix) 40 mg 1X ONCE IVP Last administered on 11/03/18at 21:00; Start 11/03/18 at 21:00; Stop 11/03/18 at 21:01; Status DC Vitamin A/Vitamin D (Vitamin A & D Ointment) 1 parag PRN Q1HR PRN TP SKIN PROTECTION Last administered on 11/07/18at 08:31; Start 11/04/18 at 13:45 Alteplase, Recombinant (Cathflo For Central Catheter Clearance) 1 mg 1X ONCE INT CAT Last administered on 11/05/18at 20:17; Start 11/05/18 at 20:00; Stop at 20:09; Status DC Alteplase, Recombinant (Cathflo For Central Catheter Clearance) 1 mg 1X ONCE INT CAT Last administered on 11/05/18at 20:17; Start 11/05/18 at 20:00; Stop at 20:09; Status DC Alteplase, Recombinant (Cathflo For Central Catheter Clearance) 1 mg 1X ONCE INT CAT Last administered on 11/05/18at 20:17; Start 11/05/18 at 20:00; Stop at 20:09; Status DC Cefepime HCl (Maxipime) 1 gm Q8HRS IVP Last administered on 11/07/18at 05:42; Start 11/06/18 at 14:00 Active Scripts Active Reported Atorvastatin Calcium 80 Mg Tablet 80 Mg PO HS Cardizem Tablet (Diltiazem Hcl) 30 Mg Tablet 30 Mg PO HS PRN Enema Ready To Use (Na Phos,M-B/Na Phos,Di-Ba) 133 Ml Enema 133 Ml RC Acetaminophen 500 Mg Tablet 1 Tab PO Q6HRS Probiotic Plus & Cranberry Cap (Cran/C/B.coag/Fos/L.acid/L.rha) 1 Each Capsule 1 Each PO BID Azithromycin Tablet (Azithromycin) 250 Mg Tablet 250 Mg PO DAILY Estradiol Transdermal Patch (Estradiol) 1 Each Patch.tdwk 1 Each TD BID WEEKLY Next dose 06/30/17 Karishma (Norethindrone) 0.35 Mg Tablet 0.35 Mg PO DAILY Keppra (Levetiracetam) 500 Mg Tablet 750 Mg PO BID Cardizem Tablet (Diltiazem Hcl) 60 Mg Tablet 60 Mg PO DAILY16 Metoprolol Tartrate 25 Mg Tablet 1 Tab PO BID Xopenex (Levalbuterol Hcl) 0.63 Mg/3 Ml Vial.neb 1 Vial NEB TID Valium (Diazepam) 2 Mg Tablet 2 Mg PO TID Transderm-Scop (Scopolamine) 1 Each Patch.td72 1 Each TD Q3DAYS Indication: secretions Next dose: 06/30/17 am Nystop (Nystatin) 60 Gm Powder 60 Gm TP PRN Indication: rash NExt dose: as needed Levalbuterol Hcl 0.63 Mg/3 Ml Vial.neb 0.63 Mg IH TID Spiriva (Tiotropium Gillett) 18 Mcg Cap.w.dev 18 Mcg IH DAILY Diltiazem Hcl Tablet (Diltiazem Hcl) 60 Mg Tablet 60 Mg PO DAILY07 Provigil (Modafinil) 200 Mg Tablet 200 Mg PO DAILY Paxil (Paroxetine Hcl) 10 Mg/5 Ml Oral.susp 10 Mg PO DAILY Baclofen 10 Mg Tablet 10 Mg PO TID Vitals/I & O Vital Sign - Last 24 Hours 11/06/18 11/06/18 11/06/18 11/06/18 09:00 10:00 10:56 11:00 Pulse 82 84 83 Resp B/P (MAP) 143/63 (89) 140/64 (89) 131/58 (82) Pulse Ox 98 97 60 96 O2 Delivery Tracheal Collar Tracheal Collar Tracheal Collar Tracheal Collar O2 Flow Rate 10.0 11/06/18 11/06/18 11/06/18 11/06/18 12:00 12:00 13:00 14:00 Temp 98.0 98.0 Pulse 91 100 96 Resp B/P (MAP) 123/57 (79) 137/61 (86) 148/68 (94) Pulse Ox 92 91 92 O2 Delivery Tracheal Collar Trach Collar Tracheal Collar Tracheal Collar 11/06/18 11/06/18 11/06/18 11/06/18 15:00 15:14 16:00 16:00 Temp 98.4 98.4 Pulse 96 100 Resp 18 B/P (MAP) 152/63 (92) 117/69 (85) Pulse Ox 92 50 95 O2 Delivery Tracheal Collar Tracheal Collar Trach Collar Tracheal Collar O2 Flow Rate 10.0 11/06/18 11/06/18 11/06/18 11/06/18 16:17 17:00 18:00 19:00 Pulse 106 99 90 88 Resp 18 17 12 B/P (MAP) 119/69 142/60 (87) 139/68 (91) 147/66 (93) Pulse Ox 93 96 98 O2 Delivery Tracheal Collar Tracheal Collar Tracheal Collar 11/06/18 11/06/18 11/06/18 11/06/18 20:00 20:00 20:41 20:41 Pulse 91 92 Resp 15 B/P (MAP) 139/61 (87) 139/61 Pulse Ox 96 50 O2 Delivery Trach Collar Tracheal Collar Tracheal Collar O2 Flow Rate 10.0 11/06/18 11/06/18 11/06/18 11/06/18 20:42 20:44 21:00 22:00 Temp 98.5 98.5 Pulse 94 82 75 Resp 14 14 B/P (MAP) 139/61 112/59 (76) 103/53 (70) Pulse Ox 50 97 97 O2 Delivery Tracheal Collar Ventilator Ventilator O2 Flow Rate 10.0 11/06/18 11/06/18 11/07/18 11/07/18 23:00 23:54 00:00 00:00 Pulse 81 80 Resp 16 14 B/P (MAP) 132/72 (92) 122/68 (86) Pulse Ox 96 96 95 O2 Delivery Ventilator BiPAP/CPAP Mechanical Ventilator Ventilator O2 Flow Rate 2.0 11/07/18 11/07/18 11/07/18 11/07/18 01:00 02:00 02:00 03:00 Pulse 80 78 85 Resp 17 17 17 B/P (MAP) 102/62 (75) 94/53 (67) 101/62 (75) Pulse Ox 95 96 95 96 O2 Delivery Ventilator BiPAP/CPAP Ventilator Ventilator O2 Flow Rate 2.0 11/07/18 11/07/18 11/07/18 11/07/18 04:00 04:00 04:24 05:00 Temp 98.3 98.3 Pulse 88 92 Resp 14 15 B/P (MAP) 110/65 (80) 112/64 (80) Pulse Ox 95 96 95 O2 Delivery Mechanical Ventilator Ventilator BiPAP/CPAP Ventilator O2 Flow Rate 2.0 11/07/18 11/07/18 11/07/18/21/19 06:00 07:00 07:38 08:05 Pulse 91 93 93 Resp 14 14 B/P (MAP) 110/56 (74) 140/77 (98) 140/77 Pulse Ox 94 96 50 O2 Delivery Ventilator Trilogy Tracheal Collar O2 Flow Rate 1.0 10.0 11/07/18 08:31 Pulse 92 B/P (MAP) 131/62 Intake and Output 11/06/18 11/06/18 11/07/18 15:00 23:00 07:00 Intake Total 250 ml 728 ml 1116 ml Output Total 775 ml 475 ml 1250 ml Balance -525 ml 253 ml -134 ml FLAQUITO LIRA MD Nov 07, 2018 08:54
--- NOTE | 2018-11-07 11:06 | PDOC ---
Infectious Disease Note Subjective Subjective Comfortable, denies pain/SOA/nausea. Doing ok Some loose stools Tube feedings 50 ml/hr Trach shield FiO2 98% ROS ROS o/w neg Vital Sign Vital Signs Vital Signs Date Time Temp Pulse Resp B/P (MAP) Pulse Ox O2 Delivery O2 Flow Rate FiO2 11/07/18 10:00 83 18 115/59 (77) 92 Tracheal Collar 11/07/18 08:05 10.0 11/07/18 08:00 98.6 98.6 Physical Exam PHYSICAL EXAM GENERAL: Appears comfortable, alert, NAD HEENT: Oral cavity clear NECK: Tracheostomy in place. LUNGS: Improved aeration HEART: S1 and S2 regular. ABDOMEN: Obese, distended, soft and nontender. PEG tube. SPC (10/25) EXTREMITIES: Generalized edema. No cyanosis NEUROLOGICAL: Alert, quadriplegia. mouths words and nods SKIN: No rash RUE-PICC clean Labs Lab Laboratory Tests Test 11/07/18 05:45 White Blood Count 4.5 x10^3/uL (4.0-11.0) Red Blood Count 3.53 x10^6/uL (3.50-5.40) Hemoglobin 10.7 g/dL (12.0-15.5) Hematocrit 32.7 % (36.0-47.0) Mean Corpuscular Volume 93 fL (79-100) Mean Corpuscular Hemoglobin 30 pg (25-35) Mean Corpuscular Hemoglobin Concent 33 g/dL (31-37) Red Cell Distribution Width 15.2 % (11.5-14.5) Platelet Count 402 x10^3/uL (140-400) Neutrophils (%) (Auto) 76 % (31-73) Lymphocytes (%) (Auto) 12 % (24-48) Monocytes (%) (Auto) 6 % (0-9) Eosinophils (%) (Auto) 5 % (0-3) Basophils (%) (Auto) 1 % (0-3) Neutrophils # (Auto) 3.4 x10^3uL (1.8-7.7) Lymphocytes # (Auto) 0.5 x10^3/uL (1.0-4.8) Monocytes # (Auto) 0.3 x10^3/uL (0.0-1.1) Eosinophils # (Auto) 0.2 x10^3/uL (0.0-0.7) Basophils # (Auto) 0.1 x10^3/uL (0.0-0.2) Micro Microbiology 10/26/18 Blood Culture - Final, Complete NO GROWTH AFTER 5 DAYS 10/27/18 Anaerobic/Aerobic Culture - Final, Complete 10/27/18 Anaerobic Culture Result 1 (NANDO) - Final, Complete 10/27/18 Aerobic Culture - Final, Complete 10/27/18 Aerobic Culture Result 1 (NANDO) - Final, Complete 10/27/18 Gram Stain - Final, Complete 10/27/18 Gram Stain Result 1 (NANDO) - Final, Complete 10/27/18 Gram Stain Result 2 (NANDO) - Final, Complete 11/02/18 - Final, Complete 11/02/18 - Final, Complete 11/02/18 - Final, Complete 11/02/18 Gram Stain Evaluation - Final, Complete 11/02/18 Sputum Culture - Final, Complete 11/02/18 Sputum Result 1 - Final, Complete 11/02/18 Antimicrobic Susceptibility - Final, Complete 10/25/18 Urine Culture - Final, Complete 10/25/18 Urine Culture Result 1 (NANDO) - Final, Complete 10/25/18 Urine Culture Result 2 (NANDO) - Final, Complete 10/25/18 Antimicrobic Susceptibility - Final, Complete 10/27/18 Anaerobic/Aerobic Culture - Final, Complete 10/27/18 Anaerobic Culture Result 1 (NANDO) - Final, Complete 10/27/18 Aerobic Culture - Final, Complete 10/27/18 Aerobic Culture Result 1 (NANDO) - Final, Complete 10/27/18 Antimicrobic Susceptibility - Final, Complete 10/27/18 Gram Stain - Final, Complete 10/27/18 Gram Stain Result 1 (NANDO) - Final, Complete 10/27/18 Gram Stain Result 2 (NANDO) - Final, Complete Objective Assessment Fever, resolved Lactic acidosis and sepsis.resolved Suspected aspiration BC + 1/2 G + cocci - MRSE 10/25. Likely contaminant UTI w/ PSA and Enterococcus (PCN- R). 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 cx neg; s/p right thoracentesis 11/03 Hypercapnic respiratory failure. Advanced multiple scleroses. h/o seizures on Keppra h/o MRSA, VRE, c. diff Plan Plan of Care started Cefepime 11/06 and monitor - november d/c shortly as was improving prior to change was on IV Vanc and Zosyn prior Maintain aspiration precautions f/u labs and cults Supportive care D/w D/w JOSÉ LUIS NOONAN MD Nov 07, 2018 11:06
[2018-11-07] MEDS: ENOXAPARIN 40 MG/0.4 ML SYRINGE. SQ SCH (11:19)
[2018-11-07] MEDS: ATORVASTATIN CALCIUM 40 MG TABLET. PO SCH (21:17)
[2018-11-08] VITALS (22 sets, daily range): BP systolic 96–149; BP diastolic 45–76
[2018-11-08] MEDS: CEFEPIME HCL IV Push 1 GM VIAL. IVP SCH (06:00)
[2018-11-08] MEDS: dilTIAZem HCL 30 MG TABLET PO SCH ×3 (06:16→20:34)
[2018-11-08 06:44] LABS: BASO % 1 % (0-3); EOS # 0.2 x10^3/uL (0.0-0.7); EOS % 5 % (0-3); HEMOGLOBIN 10.2 g/dL (12.0-15.5); LYMPH # 0.6 x10^3/uL (1.0-4.8); LYMPH % 13 % (24-48); MEAN CORPUSCULAR HEMOGLOBIN 31 pg (25-35); MEAN CORPUSCULAR HGB CONC 33 g/dL (31-37); MEAN CORPUSCULAR VOLUME 93 fL (79-100); MONO # 0.3 x10^3/uL (0.0-1.1); MONO % 7 % (0-9); NEUT # 3.4 x10^3uL (1.8-7.7); NEUT % 74 % (31-73); PLATELET COUNT 342 x10^3/uL (140-400); RED BLOOD COUNT 3.33 x10^6/uL (3.50-5.40); RED CELL DISTRIBUTION WIDTH 15.3 % (11.5-14.5); WHITE BLOOD COUNT 4.6 x10^3/uL (4.0-11.0)
--- NOTE | 2018-11-08 07:16 | PDOC ---
Infectious Disease Note Subjective Subjective Comfortable, denies pain/SOA/nausea. Doing ok on trilogy Vital Sign Vital Signs Vital Signs Date Time Temp Pulse Resp B/P (MAP) Pulse Ox O2 Delivery O2 Flow Rate FiO2 11/08/18 06:16 90 146/74 11/08/18 06:12 12 100 Tracheal Collar 11/08/18 05:53 2.0 11/08/18 04:00 97.8 97.8 Physical Exam PHYSICAL EXAM GENERAL: Appears comfortable, awakens, NAD HEENT: Oral cavity clear NECK: Tracheostomy in place.on Trilogy LUNGS: Improved aeration HEART: S1 and S2 regular. ABDOMEN: Obese, distended, soft and nontender. PEG tube. SPC (10/25) EXTREMITIES: Generalized edema. No cyanosis NEUROLOGICAL: Alert, quadriplegia. mouths words and nods SKIN: No rash RUE-PICC clean Labs Lab Laboratory Tests Test 11/08/18 06:00 White Blood Count 4.6 x10^3/uL (4.0-11.0) Red Blood Count 3.33 x10^6/uL (3.50-5.40) Hemoglobin 10.2 g/dL (12.0-15.5) Hematocrit 31.0 % (36.0-47.0) Mean Corpuscular Volume 93 fL (79-100) Mean Corpuscular Hemoglobin 31 pg (25-35) Mean Corpuscular Hemoglobin Concent 33 g/dL (31-37) Red Cell Distribution Width 15.3 % (11.5-14.5) Platelet Count 342 x10^3/uL (140-400) Neutrophils (%) (Auto) 74 % (31-73) Lymphocytes (%) (Auto) 13 % (24-48) Monocytes (%) (Auto) 7 % (0-9) Eosinophils (%) (Auto) 5 % (0-3) Basophils (%) (Auto) 1 % (0-3) Neutrophils # (Auto) 3.4 x10^3uL (1.8-7.7) Lymphocytes # (Auto) 0.6 x10^3/uL (1.0-4.8) Monocytes # (Auto) 0.3 x10^3/uL (0.0-1.1) Eosinophils # (Auto) 0.2 x10^3/uL (0.0-0.7) Basophils # (Auto) 0.0 x10^3/uL (0.0-0.2) Micro Microbiology 10/26/18 Blood Culture - Final, Complete NO GROWTH AFTER 5 DAYS 10/27/18 Anaerobic/Aerobic Culture - Final, Complete 10/27/18 Anaerobic Culture Result 1 (NANDO) - Final, Complete 10/27/18 Aerobic Culture - Final, Complete 10/27/18 Aerobic Culture Result 1 (NANDO) - Final, Complete 10/27/18 Gram Stain - Final, Complete 10/27/18 Gram Stain Result 1 (NANDO) - Final, Complete 10/27/18 Gram Stain Result 2 (NANDO) - Final, Complete 11/02/18 - Final, Complete 11/02/18 - Final, Complete 11/02/18 - Final, Complete 11/02/18 Gram Stain Evaluation - Final, Complete 11/02/18 Sputum Culture - Final, Complete 11/02/18 Sputum Result 1 - Final, Complete 11/02/18 Antimicrobic Susceptibility - Final, Complete 10/25/18 Urine Culture - Final, Complete 10/25/18 Urine Culture Result 1 (NANDO) - Final, Complete 10/25/18 Urine Culture Result 2 (NANDO) - Final, Complete 10/25/18 Antimicrobic Susceptibility - Final, Complete 10/27/18 Anaerobic/Aerobic Culture - Final, Complete 10/27/18 Anaerobic Culture Result 1 (NANDO) - Final, Complete 10/27/18 Aerobic Culture - Final, Complete 10/27/18 Aerobic Culture Result 1 (NANDO) - Final, Complete 10/27/18 Antimicrobic Susceptibility - Final, Complete 10/27/18 Gram Stain - Final, Complete 10/27/18 Gram Stain Result 1 (NANDO) - Final, Complete 10/27/18 Gram Stain Result 2 (NANDO) - Final, Complete Objective Assessment Fever, resolved Lactic acidosis and sepsis.resolved Suspected aspiration BC + 1/2 G + cocci - MRSE 10/25. Likely contaminant UTI w/ PSA and Enterococcus (PCN- R). 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 cx neg; s/p right thoracentesis 11/03 Hypercapnic respiratory failure. Advanced multiple scleroses. h/o seizures on Keppra h/o MRSA, VRE, c. diff Plan Plan of Care started Cefepime 11/06 but will d/c today and monitor was on IV Vanc and Zosyn prior Maintain aspiration precautions f/u labs and cults Supportive care D/w RN JOSÉ LUIS TREADWELL MD Nov 08, 2018 07:16
[2018-11-08] MEDS: BUDESONIDE 0.5 MG/2 ML NEBU. NEB SCH ×2 (07:58→19:57)
[2018-11-08] MEDS: IPRATRPIUM/ALBUTEROL 0.5/2.5MG 3 ML NEBU. NEB SCH ×4 (07:58→19:57)
[2018-11-08] MEDS: ASPIRIN CHEWABLE 81 MG TABLET. PO SCH (08:22)
[2018-11-08] MEDS: PARoxetine 10 MG TABLET PO SCH (08:23)
[2018-11-08] MEDS: levETIRAcetam 250 MG TABLET PO SCH ×2 (08:23→20:34)
[2018-11-08] MEDS: METOPROLOL TART IMMED RELEASE 25 MG TABLET. PO SCH ×2 (08:23→20:35)
[2018-11-08] MEDS: diazePAM 2 MG TABLET PO SCH ×3 (08:24→20:35)
[2018-11-08] MEDS: SCOPOLAMINE 1.5MG PATCH. TD SCH (08:24)
[2018-11-08] MEDS: BACLOFEN 10 MG TABLET. PO SCH ×3 (08:24→20:34)
--- NOTE | 2018-11-08 09:19 | PDOC ---
SUBJECTIVE Subjective Pt is sleeping. ID has stopped her antibiotics for trial off of them to see how patient does. Nursing has no concerns for Urology; she is now on the vent she will take home with her and doing well so far. OBJECTIVE Objective Physical Exam: General appearance: Sleeping,appears comfortable. Head: Normocephalic, without obvious abnormality Eyes: closed Lungs: Regular respirations through trach with machine/vent assistance Abdomen: soft, non-tender. + SP tubing in place draining clear yellow urine. Site is CDI/covered with split guaze dressing that is CDI. Site with no signs or symptoms of infection. Extremities: extremities normal, atraumatic, no cyanosis or edema Vital Signs Vital Signs Date Time Temp Pulse Resp B/P (MAP) Pulse Ox O2 Delivery O2 Flow Rate FiO2 11/08/18 08:23 91 146/76 11/08/18 07:45 95 BiPAP/CPAP 2.0 11/08/18 06:16 90 146/74 11/08/18 06:12 95 12 146/74 (98) 100 Tracheal Collar 11/08/18 05:53 99 BiPAP/CPAP 2.0 11/08/18 05:05 18 14 116/69 (85) 99 Tracheal Collar 11/08/18 04:29 96 BiPAP/CPAP 2.0 11/08/18 04:00 97.8 86 14 116/58 (77) 99 Tracheal Collar 97.8 11/08/18 04:00 Trach Collar 11/08/18 02:10 97 BiPAP/CPAP 2.0 11/08/18 02:00 88 12 96/61 (73) 99 Tracheal Collar 11/08/18 01:00 88 22 109/76 (87) 99 Tracheal Collar 11/08/18 00:03 97 BiPAP/CPAP 2.0 11/07/18 23:59 98.3 87 22 147/75 (99) 97 Tracheal Collar 98.3 11/07/18 23:59 Trach Collar 11/07/18 23:00 88 22 101/58 (72) 97 Tracheal Collar 11/07/18 22:00 100 22 121/72 (88) 96 Tracheal Collar 11/07/18 21:22 92 153/77 11/07/18 21:18 96 153/77 11/07/18 21:00 95 22 153/77 (102) 96 Tracheal Collar 11/07/18 20:30 40 Tracheal Collar 10.0 11/07/18 20:30 40 Tracheal Collar 10.0 11/07/18 20:00 98.2 87 11 160/74 (102) 96 Tracheal Collar 98.2 11/07/18 20:00 Trach Collar 11/07/18 19:00 87 16 167/94 (118) 96 Tracheal Collar 11/07/18 18:00 80 14 91/49 (63) 94 Tracheal Collar 11/07/18 17:00 80 13 125/62 (83) 95 Tracheal Collar 11/07/18 16:09 40 Tracheal Collar 10.0 11/07/18 16:00 Trach Collar 11/07/18 16:00 97.5 78 15 134/64 (87) 93 Tracheal Collar 97.5 11/07/18 15:14 85 135/68 11/07/18 15:00 82 14 96/59 (71) 92 Tracheal Collar 11/07/18 14:00 85 15 135/68 (90) 93 Tracheal Collar 11/07/18 13:00 84 16 129/68 (88) 92 Tracheal Collar 11/07/18 12:00 50 Tracheal Collar 10.0 11/07/18 12:00 98.7 86 20 138/62 (87) 93 Tracheal Collar 98.7 11/07/18 12:00 Trach Collar 11/07/18 11:00 83 18 135/62 (86) 96 Tracheal Collar 11/07/18 10:00 83 18 115/59 (77) 92 Tracheal Collar I & O Intake and Output 11/08/18 07:00 Intake Total 1024 ml Output Total 1450 ml Balance -426 ml Intake Oral 0 ml Tube Feeding 924 ml Other 100 ml Output Urine Total 1450 ml # Bowel Movements 1 PHYSICAL EXAM Physical Exam Physical Exam: General appearance: Sleeping,appears comfortable. Head: Normocephalic, without obvious abnormality Eyes: closed Lungs: Regular respirations through trach with machine/vent assistance Abdomen: soft, non-tender. + SP tubing in place draining clear yellow urine. Site is CDI/covered with split guaze dressing that is CDI. Site with no signs or symptoms of infection. Extremities: extremities normal, atraumatic, no cyanosis or edema Pulses: 2+ and symmetric Lymph nodes: Cervical, supraclavicular, and axillary nodes normal. ASSESSMENT/PLAN Assessment/Plan SP tubing is due 11/15/18 per q 3 week schedule since it was last changed on . If she continues to develop infections, consider q 2 week sp tubing changes. Nursing to continue local hygiene and maintenance of SP site daily, so far looking very good. Recommend continue this whenever she does go home. A follow up appointment has been arranged for her with Dr. [place] of [facility] at [facility] Location on 11/19/18 at 1120 am. Appointment card given to patient by BEATER LEADJun Latif Will continue to follow peripherally while in house, but from a Urology perspective, could go home whenever medical team/ID is ready. Discussed above with attending RN. COMMENT Lab Laboratory Tests Test 11/08/18 06:00 White Blood Count 4.6 x10^3/uL (4.0-11.0) Red Blood Count 3.33 x10^6/uL (3.50-5.40) Hemoglobin 10.2 g/dL (12.0-15.5) Hematocrit 31.0 % (36.0-47.0) Mean Corpuscular Volume 93 fL (79-100) Mean Corpuscular Hemoglobin 31 pg (25-35) Mean Corpuscular Hemoglobin Concent 33 g/dL (31-37) Red Cell Distribution Width 15.3 % (11.5-14.5) Platelet Count 342 x10^3/uL (140-400) Neutrophils (%) (Auto) 74 % (31-73) Lymphocytes (%) (Auto) 13 % (24-48) Monocytes (%) (Auto) 7 % (0-9) Eosinophils (%) (Auto) 5 % (0-3) Basophils (%) (Auto) 1 % (0-3) Neutrophils # (Auto) 3.4 x10^3uL (1.8-7.7) Lymphocytes # (Auto) 0.6 x10^3/uL (1.0-4.8) Monocytes # (Auto) 0.3 x10^3/uL (0.0-1.1) Eosinophils # (Auto) 0.2 x10^3/uL (0.0-0.7) Basophils # (Auto) 0.0 x10^3/uL (0.0-0.2) FREDY LATIF APRN Nov 08, 2018 09:19
--- NOTE | 2018-11-08 10:26 | PDOC ---
PROGRESS NOTES Chief Complaint Chief Complaint Acute on chronic respiratory failure Bilateral pleural effusion Advanced multiple sclerosis tracheostomy history of seizures PEG tube baclofen pump colostomy Suprapubic catheter S.p thoracentesis > 1L FULL CODE History of Present Illness History of Present Illness Known to me She comes from home with She has 24-hour care at home wishes aggressive measures and that's what we are doing Plan for trach shield during the day and trilogy during the night working with home health and other respiratory equipment for the trach shield etc. Possibly home tomorrow Plan: CPM I have no further orders Full code Follow respiratory/pulmo recommendations Possibly home with home health tomorrow Vitals Vitals Vital Signs Date Time Temp Pulse Resp B/P (MAP) Pulse Ox O2 Delivery O2 Flow Rate FiO2 11/08/18 10:00 84 12 119/62 (81) 100 Tracheal Collar 11/08/18 08:00 98.1 98.1 11/08/18 07:45 2.0 Physical Exam Physical Exam GENERAL: Appears comfortable, awakens, NAD HEENT: Oral cavity clear NECK: Tracheostomy in place.on Trilogy LUNGS: Improved aeration HEART: S1 and S2 regular. ABDOMEN: Obese, distended, soft and nontender. PEG tube. SPC (10/25) EXTREMITIES: Generalized edema. No cyanosis NEUROLOGICAL: Alert, quadriplegia. mouths words and nods SKIN: No rash RUE-PICC clean General: Alert, Cooperative, No acute distress Heart: Regular rate (SR), Other (distnat heart sounds) Lungs: Other (decrease bs) Abdomen: Soft Extremities: No cyanosis, Other (generalized edema trace to 1+) Skin: Other (suprapubic cath, PEG tube in place, trach site intact) Labs LABS Laboratory Tests Test 11/08/18 06:00 White Blood Count 4.6 x10^3/uL (4.0-11.0) Red Blood Count 3.33 x10^6/uL (3.50-5.40) Hemoglobin 10.2 g/dL (12.0-15.5) Hematocrit 31.0 % (36.0-47.0) Mean Corpuscular Volume 93 fL (79-100) Mean Corpuscular Hemoglobin 31 pg (25-35) Mean Corpuscular Hemoglobin Concent 33 g/dL (31-37) Red Cell Distribution Width 15.3 % (11.5-14.5) Platelet Count 342 x10^3/uL (140-400) Neutrophils (%) (Auto) 74 % (31-73) Lymphocytes (%) (Auto) 13 % (24-48) Monocytes (%) (Auto) 7 % (0-9) Eosinophils (%) (Auto) 5 % (0-3) Basophils (%) (Auto) 1 % (0-3) Neutrophils # (Auto) 3.4 x10^3uL (1.8-7.7) Lymphocytes # (Auto) 0.6 x10^3/uL (1.0-4.8) Monocytes # (Auto) 0.3 x10^3/uL (0.0-1.1) Eosinophils # (Auto) 0.2 x10^3/uL (0.0-0.7) Basophils # (Auto) 0.0 x10^3/uL (0.0-0.2) Review of Systems Review of Systems Asleep I did not awaken Assessment and Plan Assessmemt and Plan Problems Medical Problems: (1) Hypercapnic respiratory failure Status: Acute Comment Review of Relevant I have reviewed the following items lucila (where applicable) has been applied. Labs Laboratory Tests Test 11/07/18 05:45 11/08/18 06:00 White Blood Count 4.5 x10^3/uL (4.0-11.0) 4.6 x10^3/uL (4.0-11.0) Red Blood Count 3.53 x10^6/uL (3.50-5.40) 3.33 x10^6/uL (3.50-5.40) Hemoglobin 10.7 g/dL (12.0-15.5) 10.2 g/dL (12.0-15.5) Hematocrit 32.7 % (36.0-47.0) 31.0 % (36.0-47.0) Mean Corpuscular Volume 93 fL (79-100) 93 fL (79-100) Mean Corpuscular Hemoglobin 30 pg (25-35) 31 pg (25-35) Mean Corpuscular Hemoglobin Concent 33 g/dL (31-37) 33 g/dL (31-37) Red Cell Distribution Width 15.2 % (11.5-14.5) 15.3 % (11.5-14.5) Platelet Count 402 x10^3/uL (140-400) 342 x10^3/uL (140-400) Neutrophils (%) (Auto) 76 % (31-73) 74 % (31-73) Lymphocytes (%) (Auto) 12 % (24-48) 13 % (24-48) Monocytes (%) (Auto) 6 % (0-9) 7 % (0-9) Eosinophils (%) (Auto) 5 % (0-3) 5 % (0-3) Basophils (%) (Auto) 1 % (0-3) 1 % (0-3) Neutrophils # (Auto) 3.4 x10^3uL (1.8-7.7) 3.4 x10^3uL (1.8-7.7) Lymphocytes # (Auto) 0.5 x10^3/uL (1.0-4.8) 0.6 x10^3/uL (1.0-4.8) Monocytes # (Auto) 0.3 x10^3/uL (0.0-1.1) 0.3 x10^3/uL (0.0-1.1) Eosinophils # (Auto) 0.2 x10^3/uL (0.0-0.7) 0.2 x10^3/uL (0.0-0.7) Basophils # (Auto) 0.1 x10^3/uL (0.0-0.2) 0.0 x10^3/uL (0.0-0.2) Laboratory Tests Test 11/08/18 06:00 White Blood Count 4.6 x10^3/uL (4.0-11.0) Red Blood Count 3.33 x10^6/uL (3.50-5.40) Hemoglobin 10.2 g/dL (12.0-15.5) Hematocrit 31.0 % (36.0-47.0) Mean Corpuscular Volume 93 fL (79-100) Mean Corpuscular Hemoglobin 31 pg (25-35) Mean Corpuscular Hemoglobin Concent 33 g/dL (31-37) Red Cell Distribution Width 15.3 % (11.5-14.5) Platelet Count 342 x10^3/uL (140-400) Neutrophils (%) (Auto) 74 % (31-73) Lymphocytes (%) (Auto) 13 % (24-48) Monocytes (%) (Auto) 7 % (0-9) Eosinophils (%) (Auto) 5 % (0-3) Basophils (%) (Auto) 1 % (0-3) Neutrophils # (Auto) 3.4 x10^3uL (1.8-7.7) Lymphocytes # (Auto) 0.6 x10^3/uL (1.0-4.8) Monocytes # (Auto) 0.3 x10^3/uL (0.0-1.1) Eosinophils # (Auto) 0.2 x10^3/uL (0.0-0.7) Basophils # (Auto) 0.0 x10^3/uL (0.0-0.2) Microbiology 10/26/18 Blood Culture - Final, Complete NO GROWTH AFTER 5 DAYS 10/27/18 Anaerobic/Aerobic Culture - Final, Complete 10/27/18 Anaerobic Culture Result 1 (NANDO) - Final, Complete 10/27/18 Aerobic Culture - Final, Complete 10/27/18 Aerobic Culture Result 1 (NANDO) - Final, Complete 10/27/18 Gram Stain - Final, Complete 10/27/18 Gram Stain Result 1 (NANDO) - Final, Complete 10/27/18 Gram Stain Result 2 (NANDO) - Final, Complete 11/02/18 - Final, Complete 11/02/18 - Final, Complete 11/02/18 - Final, Complete 11/02/18 Gram Stain Evaluation - Final, Complete 11/02/18 Sputum Culture - Final, Complete 11/02/18 Sputum Result 1 - Final, Complete 11/02/18 Antimicrobic Susceptibility - Final, Complete 10/25/18 Urine Culture - Final, Complete 10/25/18 Urine Culture Result 1 (NANDO) - Final, Complete 10/25/18 Urine Culture Result 2 (NANDO) - Final, Complete 10/25/18 Antimicrobic Susceptibility - Final, Complete 10/27/18 Anaerobic/Aerobic Culture - Final, Complete 10/27/18 Anaerobic Culture Result 1 (NANDO) - Final, Complete 10/27/18 Aerobic Culture - Final, Complete 10/27/18 Aerobic Culture Result 1 (NANDO) - Final, Complete 10/27/18 Antimicrobic Susceptibility - Final, Complete 10/27/18 Gram Stain - Final, Complete 10/27/18 Gram Stain Result 1 (NANDO) - Final, Complete 10/27/18 Gram Stain Result 2 (NANDO) - Final, Complete Medications Current Medications Sodium Chloride 1,000 ml @ 1,000 mls/hr Q1H IV Last administered on 10/25/18at 19:04; Start 10/25/18 at 17:28; Stop 10/25/18 at 18:27; Status DC Albuterol/ Ipratropium (Duoneb) 3 ml 1X ONCE NEB Last administered on at 17:53; Start 10/25/18 at 17:30; Stop 10/25/18 at 17:31; Status DC Methylprednisolone Sodium Succinate (SOLU-Medrol 125MG VIAL) 125 mg 1X ONCE IV Last administered on 10/25/18at 19:04; Start 10/25/18 at 17:30; Stop 10/25/18 at 17:31; Status DC Ceftriaxone Sodium (Rocephin) 1 gm 1X ONCE IVP Last administered on 10/25/18at 20:24; Start 10/25/18 at 19:00; Stop 10/25/18 at 19:02; Status DC Ondansetron HCl (Zofran) 4 mg PRN Q8HRS PRN IV NAUSEA/VOMITING; Start 10/25/18 at 20:15; Stop 10/26/18 at 20:14; Status DC Sodium Chloride 1,000 ml @ 126 mls/hr Q7H57M IV ; Start 10/25/18 at 20:07; Stop 10/26/18 at 07:12; Status DC Acetaminophen (Tylenol) 650 mg 1X ONCE PEG Last administered on 10/26/18at 04:59 ; Start 10/26/18 at 04:30; Stop 10/26/18 at 04:32; Status DC Piperacillin Sod/ Tazobactam Sod (Zosyn Per Pharmacy) 1 each PRN DAILY PRN MC SEE COMMENTS; Start 10/26/18 at 07:15; Status Cancel Vancomycin HCl (Vanco Per Pharmacy) 1 each PRN DAILY PRN MC SEE COMMENTS Last administered on 10/31/18at 17:49; Start 10/26/18 at 07:15; Stop 11/01/18 at 09:17 ; Status DC Piperacillin Sod/ Tazobactam Sod 3.375 gm/Sodium Chloride 50 ml @ 100 mls/hr Q6HRS IV Last administered on 11/01/18at 06:01; Start 10/26/18 at 08:00; Stop at 09:30; Status DC Vancomycin HCl 1.75 gm/Sodium Chloride 500 ml @ 250 mls/hr 1X ONCE IV Last administered on 10/26/18at 09:25; Start 10/26/18 at 08:00; Stop 10/26/18 at 09:59; Status DC Azithromycin (Zithromax) 250 mg DAILY PO ; Start 10/27/18 at 09:00; Status UNV Baclofen (Lioresal) 10 mg TID PO Last administered on 11/08/18at 08:24; Start at 14:00 Diazepam (Valium) 2 mg TID PO Last administered on 11/08/18at 08:24; Start at 14:00 Diltiazem HCl (Cardizem) 30 mg QHS PO Last administered on 11/07/18at 21:18; Start 10/26/18 at 21:00 Estradiol (Climara Weekly) 1 mg WEEKLY TD ; Start 11/02/18 at 09:00; Stop at 09:00; Status DC Levetiracetam (Keppra) 750 mg BID PO Last administered on 11/08/18at 08:23; Start 10/26/18 at 12:00 Metoprolol Tartrate (Lopressor) 25 mg BID PO Last administered on 11/08/18at 08: 23; Start 10/26/18 at 12:00 Sodium Monofluorophosphate (Fleet Adult) 133 ml DAILY PRN RC CONSTIPATION, 2ND CHOICE DC Last administered on 11/01/18at 12:29; Start 10/26/18 at 11:15 Nystatin (Nystop) 1 parag PRN BID PRN TP RASH; Start 10/26/18 at 11:15; Stop 10/27 at 10:35; Status DC Acetaminophen (Tylenol) 500 mg PRN Q6HRS PRN PO MILD PAIN / TEMP; Start at 11:30 Non-Formulary Medication (Cran/C/B.coag/ Fos/L.acid/L.rha (Probiotic Plus & Cranberry Cap)) 1 each BID PO ; Start 10/26/18 at 21:00; Status UNV Diltiazem HCl (Cardizem) 60 mg DAILY16 PO Last administered on 11/07/18at 15:14 ; Start 10/26/18 at 16:00 Diltiazem HCl (Cardizem) 60 mg DAILY07 PO Last administered on 11/08/18at 06:16 ; Start 10/27/18 at 07:00 Non-Formulary Medication (Levalbuterol Hcl ) 0.63 mg TID IH ; Start 10/26/18 at 14:00; Status UNV Non-Formulary Medication (Levalbuterol Hcl (Xopenex)) 1 vial TID NEB ; Start 10/26/18 at 14:00; Status UNV Non-Formulary Medication (Modafinil (Provigil)) 200 mg DAILY PO Last administered on 11/08/18at 08:22; Start 10/27/18 at 11:30 Non-Formulary Medication (Norethindrone (Karishma)) 0.35 mg DAILY PO ; Start 10/27 at 09:00; Status UNV Paroxetine HCl (Paxil) 10 mg DAILY PO Last administered on 11/08/18at 08:23; Start 10/26/18 at 12:00 Scopolamine (Transderm-Scop) 1 patch Q3DAYS TD Last administered on 11/08/18at 08:24; Start 10/27/18 at 09:00 Non-Formulary Medication (Tiotropium Berger (Spiriva)) 18 mcg DAILY IH ; Start 10/27/18 at 09:00; Status UNV Albuterol/ Ipratropium (Duoneb) 3 ml RTQID NEB Last administered on 11/08/18at 07:58; Start 10/26/18 at 12:00 Albuterol Sulfate (Ventolin Neb Soln) 2.5 mg PRN TID PRN NEB SHORTNESS OF BREATH; Start 10/26/18 at 11:30 Vancomycin HCl 1 gm/Sodium Chloride 250 ml @ 250 mls/hr Q24H IV Last administered on 10/28/18at 09:51; Start 10/27/18 at 09:30; Stop 10/28/18 at 12:00 ; Status DC Vancomycin HCl (Vancomycin Trough Level) 1 each 1X ONCE MC Last administered on 10/28/18at 09:00; Start 10/28/18 at 09:00; Stop 10/28/18 at 09:01; Status DC Aspirin (Children'S Aspirin) 81 mg DAILYWBKFT PO Last administered on at 08:22; Start 10/26/18 at 14:30 Non-Formulary Medication 1 ea PRN TID PRN PO APPLY TO AFFECTED AREA Last administered on 11/01/18at 08:33; Start 10/27/18 at 11:00 Vancomycin HCl 1.25 gm/Sodium Chloride 250 ml @ 167 mls/hr Q12H IV Last administered on 10/29/18at 08:52; Start 10/28/18 at 22:00; Stop 10/29/18 at 22:05 ; Status DC Vancomycin HCl (Vancomycin Trough Level) 1 each 1X ONCE MC Last administered on 10/29/18at 21:30; Start 10/29/18 at 21:30; Stop 10/29/18 at 21:31; Status DC Vancomycin HCl 1 gm/Sodium Chloride 250 ml @ 250 mls/hr Q12H IV Last administered on 10/31/18at 06:07; Start 10/30/18 at 05:00; Stop 10/31/18 at 17:34 ; Status DC Vancomycin HCl (Vancomycin Trough Level) 1 each 1X ONCE MC Last administered on 10/31/18at 17:30; Start 10/31/18 at 17:30; Stop 10/31/18 at 17:34; Status DC Budesonide (Pulmicort) 0.5 mg RTBID NEB Last administered on 11/08/18at 07:58; Start 10/30/18 at 08:00 Docusate Sodium (Enemeez) 283 mg PRN DAILY PRN DC CONSTIPATION, 1ST CHOICE; Start 10/30/18 at 10:30 Vancomycin HCl 750 mg/Sodium Chloride 250 ml @ 250 mls/hr Q12H IV Last administered on 11/01/18at 08:27; Start 10/31/18 at 20:00; Stop 11/01/18 at 09:14 ; Status DC Vancomycin HCl (Vancomycin Trough Level) 1 each 1X ONCE MC ; Start 11/02/18 at 07:30; Stop 11/02/18 at 07:30; Status DC Meropenem 500 mg/ Sodium Chloride 50 ml @ 100 mls/hr Q6HRS IV Last administered on 11/06/18at 11:38; Start 11/01/18 at 12:00; Stop 11/06/18 at 12:53 ; Status DC Atorvastatin Calcium (Lipitor) 80 mg QHS PO Last administered on 11/07/18at 21: 17; Start 11/01/18 at 21:00 Estradiol (Climara Weekly) 0.1 mg WEEKLY TD Last administered on 11/02/18at 08: 40; Start 11/02/18 at 09:00 Enoxaparin Sodium (Lovenox 40mg Syringe) 40 mg Q24H SQ Last administered on at 11:19; Start 11/02/18 at 11:00 Hydralazine HCl (Apresoline Inj) 10 mg PRN Q6HRS PRN IVP ELEVATED BP, SEE COMMENTS Last administered on 11/03/18at 14:29; Start 11/03/18 at 14:00 Metoprolol Tartrate (Lopressor Vial) 10 mg PRN Q6HRS PRN IVP HYPERTENSION, SEE COMMENTS; Start 11/03/18 at 17:00 Furosemide (Lasix) 40 mg 1X ONCE IVP Last administered on 11/03/18at 21:00; Start 11/03/18 at 21:00; Stop 11/03/18 at 21:01; Status DC Vitamin A/Vitamin D (Vitamin A & D Ointment) 1 parag PRN Q1HR PRN TP SKIN PROTECTION Last administered on 11/07/18at 08:31; Start 11/04/18 at 13:45 Alteplase, Recombinant (Cathflo For Central Catheter Clearance) 1 mg 1X ONCE INT CAT Last administered on 11/05/18at 20:17; Start 11/05/18 at 20:00; Stop at 20:09; Status DC Alteplase, Recombinant (Cathflo For Central Catheter Clearance) 1 mg 1X ONCE INT CAT Last administered on 11/05/18at 20:17; Start 11/05/18 at 20:00; Stop at 20:09; Status DC Alteplase, Recombinant (Cathflo For Central Catheter Clearance) 1 mg 1X ONCE INT CAT Last administered on 11/05/18at 20:17; Start 11/05/18 at 20:00; Stop at 20:09; Status DC Cefepime HCl (Maxipime) 1 gm Q8HRS IVP Last administered on 11/08/18at 06:00; Start 11/06/18 at 14:00; Stop 11/08/18 at 07:16; Status DC Active Scripts Active Reported Atorvastatin Calcium 80 Mg Tablet 80 Mg PO HS Cardizem Tablet (Diltiazem Hcl) 30 Mg Tablet 30 Mg PO HS PRN Enema Ready To Use (Na Phos,M-B/Na Phos,Di-Ba) 133 Ml Enema 133 Ml RC Acetaminophen 500 Mg Tablet 1 Tab PO Q6HRS Probiotic Plus & Cranberry Cap (Cran/C/B.coag/Fos/L.acid/L.rha) 1 Each Capsule 1 Each PO BID Azithromycin Tablet (Azithromycin) 250 Mg Tablet 250 Mg PO DAILY Estradiol Transdermal Patch (Estradiol) 1 Each Patch.tdwk 1 Each TD BID WEEKLY Next dose 06/30/17 Karishma (Norethindrone) 0.35 Mg Tablet 0.35 Mg PO DAILY Keppra (Levetiracetam) 500 Mg Tablet 750 Mg PO BID Cardizem Tablet (Diltiazem Hcl) 60 Mg Tablet 60 Mg PO DAILY16 Metoprolol Tartrate 25 Mg Tablet 1 Tab PO BID Xopenex (Levalbuterol Hcl) 0.63 Mg/3 Ml Vial.neb 1 Vial NEB TID Valium (Diazepam) 2 Mg Tablet 2 Mg PO TID Transderm-Scop (Scopolamine) 1 Each Patch.td72 1 Each TD Q3DAYS Indication: secretions Next dose: 06/30/17 am Nystop (Nystatin) 60 Gm Powder 60 Gm TP PRN Indication: rash NExt dose: as needed Levalbuterol Hcl 0.63 Mg/3 Ml Vial.neb 0.63 Mg IH TID Spiriva (Tiotropium Berger) 18 Mcg Cap.w.dev 18 Mcg IH DAILY Diltiazem Hcl Tablet (Diltiazem Hcl) 60 Mg Tablet 60 Mg PO DAILY07 Provigil (Modafinil) 200 Mg Tablet 200 Mg PO DAILY Paxil (Paroxetine Hcl) 10 Mg/5 Ml Oral.susp 10 Mg PO DAILY Baclofen 10 Mg Tablet 10 Mg PO TID Vitals/I & O Vital Sign - Last 24 Hours 11/07/18 11/07/18 11/07/18 11/07/18 11:00 12:00 12:00 12:00 Temp 98.7 98.7 Pulse 83 86 Resp 18 20 B/P (MAP) 135/62 (86) 138/62 (87) Pulse Ox 96 93 50 O2 Delivery Tracheal Collar Trach Collar Tracheal Collar Tracheal Collar O2 Flow Rate 10.0 11/07/18 11/07/18 11/07/18 11/07/18 13:00 14:00 15:00 15:14 Pulse 84 85 82 85 Resp 16 15 14 B/P (MAP) 129/68 (88) 135/68 (90) 96/59 (71) 135/68 Pulse Ox 92 93 92 O2 Delivery Tracheal Collar Tracheal Collar Tracheal Collar 11/07/18 11/07/18 11/07/18 11/07/18 16:00 16:00 16:09 17:00 Temp 97.5 97.5 Pulse 78 80 Resp 15 13 B/P (MAP) 134/64 (87) 125/62 (83) Pulse Ox 93 40 95 O2 Delivery Tracheal Collar Trach Collar Tracheal Collar Tracheal Collar O2 Flow Rate 10.0 11/07/18 11/07/18 11/07/18 11/07/18 18:00 19:00 20:00 20:00 Temp 98.2 98.2 Pulse 80 87 87 Resp 14 16 11 B/P (MAP) 91/49 (63) 167/94 (118) 160/74 (102) Pulse Ox 94 96 96 O2 Delivery Tracheal Collar Tracheal Collar Trach Collar Tracheal Collar 11/07/18 11/07/18 11/07/18 11/07/18 20:30 20:30 21:00 21:18 Pulse 95 96 Resp 22 B/P (MAP) 153/77 (102) 153/77 Pulse Ox 40 40 96 O2 Delivery Tracheal Collar Tracheal Collar Tracheal Collar O2 Flow Rate 10.0 10.0 11/07/18 11/07/18 11/07/18 11/07/18 21:22 22:00 23:00 23:59 Pulse 92 100 88 Resp 22 22 B/P (MAP) 153/77 121/72 (88) 101/58 (72) Pulse Ox 96 97 O2 Delivery Tracheal Collar Tracheal Collar Trach Collar 11/07/18 11/08/18 11/08/18 11/08/18 23:59 00:03 01:00 02:00 Temp 98.3 98.3 Pulse 87 88 88 Resp 22 22 12 B/P (MAP) 147/75 (99) 109/76 (87) 96/61 (73) Pulse Ox 97 97 99 99 O2 Delivery Tracheal Collar BiPAP/CPAP Tracheal Collar Tracheal Collar O2 Flow Rate 2.0 11/08/18 11/08/18 11/08/18 11/08/18 02:10 04:00 04:00 04:29 Temp 97.8 97.8 Pulse 86 Resp 14 B/P (MAP) 116/58 (77) Pulse Ox 97 99 96 O2 Delivery BiPAP/CPAP Trach Collar Tracheal Collar BiPAP/CPAP O2 Flow Rate 2.0 2.0 11/08/18 11/08/18 11/08/18 11/08/18 05:05 05:53 06:12 06:16 Pulse 18 95 90 Resp 14 12 B/P (MAP) 116/69 (85) 146/74 (98) 146/74 Pulse Ox 99 99 100 O2 Delivery Tracheal Collar BiPAP/CPAP Tracheal Collar O2 Flow Rate 2.0 11/08/18 11/08/18 11/08/18 11/08/18 07:00 07:45 08:00 08:00 Temp 98.1 98.1 Pulse 90 90 Resp 19 17 B/P (MAP) 119/72 (88) 146/76 (99) Pulse Ox 100 95 100 O2 Delivery triology vent BiPAP/CPAP triology vent Trach Collar O2 Flow Rate 2.0 11/08/18 11/08/18 11/08/18 11/08/18 08:23 09:00 10:00 10:00 Pulse 91 85 85 84 Resp 15 15 12 B/P (MAP) 146/76 109/55 (73) 109/55 (73) 119/62 (81) Pulse Ox 100 100 100 O2 Delivery triology vent Tracheal Collar Tracheal Collar Intake and Output 11/07/18 11/07/18 11/08/18 15:00 23:00 07:00 Intake Total 200 ml 624 ml 200 ml Output Total 675 ml 375 ml 400 ml Balance -475 ml 249 ml -200 ml CAMMY GARCIA MD Nov 08, 2018 10:26
--- NOTE | 2018-11-08 10:51 | PDOC ---
PULMONARY PROGRESS NOTES Subjective remained on trilogy overnight with some asynchrony, currently on t-sheild. Nursing reports reduced secretions no fevers or concerns from nursing staff. Vitals Vital Signs Date Time Temp Pulse Resp B/P (MAP) Pulse Ox O2 Delivery O2 Flow Rate FiO2 11/08/18 10:00 84 12 119/62 (81) 100 Tracheal Collar 11/08/18 08:00 98.1 98.1 11/08/18 07:45 2.0 Comments Pt. is non-verbal on exam, unable to obtain 2/2 trach General: No acute distress HEENT: Other (nc at perrl nose throat clear, neck, trach site ok no lad, no thyromegaly) Lungs: Other (decrease bs) Cardiovascular: S1, S2 Abdomen: Soft, Non-tender, Other (peg tube in palce ) Neuro Exam: Alert Extremities: No Edema, Other (edema +1 BLE) Skin: Warm, Dry Labs Laboratory Tests Test 11/08/18 06:00 White Blood Count 4.6 x10^3/uL Red Blood Count 3.33 x10^6/uL Hemoglobin 10.2 g/dL Hematocrit 31.0 % Mean Corpuscular Volume 93 fL Mean Corpuscular Hemoglobin 31 pg Mean Corpuscular Hemoglobin Concent 33 g/dL Red Cell Distribution Width 15.3 % Platelet Count 342 x10^3/uL Neutrophils (%) (Auto) 74 % Lymphocytes (%) (Auto) 13 % Monocytes (%) (Auto) 7 % Eosinophils (%) (Auto) 5 % Basophils (%) (Auto) 1 % Neutrophils # (Auto) 3.4 x10^3uL Lymphocytes # (Auto) 0.6 x10^3/uL Monocytes # (Auto) 0.3 x10^3/uL Eosinophils # (Auto) 0.2 x10^3/uL Basophils # (Auto) 0.0 x10^3/uL Current Medications Medications (Trade) Dose Ordered Sig/Lidia Route PRN Reason Start Time Stop Time Status Last Admin Dose Admin Sodium Chloride 1,000 ml @ 1,000 mls/hr Q1H IV 10/25/18 17:28 10/25/18 18:27 DC 10/25/18 19:04 Albuterol/ Ipratropium (Duoneb) 3 ml 1X ONCE NEB 10/25/18 17:30 10/25/18 17:31 DC 10/25/18 17:53 Methylprednisolone Sodium Succinate (SOLU-Medrol 125MG VIAL) 125 mg 1X ONCE IV 10/25/18 17:30 10/25/18 17:31 DC 10/25/18 19:04 Ceftriaxone Sodium (Rocephin) 1 gm 1X ONCE IVP 10/25/18 19:00 10/25/18 19:02 DC 10/25/18 20:24 Ondansetron HCl (Zofran) 4 mg PRN Q8HRS PRN IV NAUSEA/VOMITING 10/25/18 20:15 10/26/18 20:14 DC Sodium Chloride 1,000 ml @ 126 mls/hr Q7H57M IV 10/25/18 20:07 10/26/18 07:12 DC Acetaminophen (Tylenol) 650 mg 1X ONCE PEG 10/26/18 04:30 10/26/18 04:32 DC 10/26/18 04:59 Piperacillin Sod/ Tazobactam Sod (Zosyn Per Pharmacy) 1 each PRN DAILY PRN MC SEE COMMENTS 10/26/18 07:15 Cancel Vancomycin HCl (Vanco Per Pharmacy) 1 each PRN DAILY PRN MC SEE COMMENTS 10/26/18 07:15 11/01/18 09:17 DC 10/31/18 17:49 Piperacillin Sod/ Tazobactam Sod 3.375 gm/Sodium Chloride 50 ml @ 100 mls/hr Q6HRS IV 10/26/18 08:00 11/01/18 09:30 DC 11/01/18 06:01 Vancomycin HCl 1.75 gm/Sodium Chloride 500 ml @ 250 mls/hr 1X ONCE IV 10/26/18 08:00 10/26/18 09:59 DC 10/26/18 09:25 Azithromycin (Zithromax) 250 mg DAILY PO 10/27/18 09:00 UNV Baclofen (Lioresal) 10 mg TID PO 10/26/18 14:00 11/08/18 08:24 Diazepam (Valium) 2 mg TID PO 10/26/18 14:00 11/08/18 08:24 Diltiazem HCl (Cardizem) 30 mg QHS PO 10/26/18 21:00 11/07/18 21:18 Estradiol (Climara Weekly) 1 mg WEEKLY TD 11/02/18 09:00 11/02/18 09:00 DC Levetiracetam (Keppra) 750 mg BID PO 10/26/18 12:00 11/08/18 08:23 Metoprolol Tartrate (Lopressor) 25 mg BID PO 10/26/18 12:00 11/08/18 08:23 Sodium Monofluorophosphate (Fleet Adult) 133 ml DAILY PRN RC CONSTIPATION, 2ND CHOICE DC 10/26/18 11:15 11/01/18 12:29 Nystatin (Nystop) 1 parag PRN BID PRN TP RASH 10/26/18 11:15 10/27/18 10:35 DC Acetaminophen (Tylenol) 500 mg PRN Q6HRS PRN PO MILD PAIN / TEMP 10/26/18 11:30 Non-Formulary Medication (Cran/C/B.coag/ Fos/L.acid/L.rha (Probiotic Plus & Cranberry Cap)) 1 each BID PO 10/26/18 21:00 UNV Diltiazem HCl (Cardizem) 60 mg DAILY16 PO 10/26/18 16:00 11/07/18 15:14 Diltiazem HCl (Cardizem) 60 mg DAILY07 PO 10/27/18 07:00 11/08/18 06:16 Non-Formulary Medication (Levalbuterol Hcl ) 0.63 mg TID IH 10/26/18 14:00 UNV Non-Formulary Medication (Levalbuterol Hcl (Xopenex)) 1 vial TID NEB 10/26/18 14:00 UNV Non-Formulary Medication (Modafinil (Provigil)) 200 mg DAILY PO 10/27/18 11:30 11/08/18 08:22 Non-Formulary Medication (Norethindrone (Karishma)) 0.35 mg DAILY PO 10/27/18 09:00 UNV Paroxetine HCl (Paxil) 10 mg DAILY PO 10/26/18 12:00 11/08/18 08:23 Scopolamine (Transderm-Scop) 1 patch Q3DAYS TD 10/27/18 09:00 11/08/18 08:24 Non-Formulary Medication (Tiotropium [place] (Spiriva)) 18 mcg DAILY IH 10/27/18 09:00 UNV Albuterol/ Ipratropium (Duoneb) 3 ml RTQID NEB 10/26/18 12:00 11/08/18 07:58 Albuterol Sulfate (Ventolin Neb Soln) 2.5 mg PRN TID PRN NEB SHORTNESS OF BREATH 10/26/18 11:30 Vancomycin HCl 1 gm/Sodium Chloride 250 ml @ 250 mls/hr Q24H IV 10/27/18 09:30 10/28/18 12:00 DC 10/28/18 09:51 Vancomycin HCl (Vancomycin Trough Level) 1 each 1X ONCE 10/28/18 09:00 10/28/18 09:01 DC 10/28/18 09:00 Aspirin (Children'S Aspirin) 81 mg DAILYWBKFT PO 10/26/18 14:30 11/08/18 08:22 Non-Formulary Medication 1 ea PRN TID PRN PO APPLY TO AFFECTED AREA 10/27/18 11:00 11/01/18 08:33 Vancomycin HCl 1.25 gm/Sodium Chloride 250 ml @ 167 mls/hr Q12H IV 10/28/18 22:00 10/29/18 22:05 DC 10/29/18 08:52 Vancomycin HCl (Vancomycin Trough Level) 1 each 1X ONCE 10/29/18 21:30 10/29/18 21:31 DC 10/29/18 21:30 Vancomycin HCl 1 gm/Sodium Chloride 250 ml @ 250 mls/hr Q12H IV 10/30/18 05:00 10/31/18 17:34 DC 10/31/18 06:07 Vancomycin HCl (Vancomycin Trough Level) 1 each 1X ONCE 10/31/18 17:30 10/31/18 17:34 DC 10/31/18 17:30 Budesonide (Pulmicort) 0.5 mg RTBID NEB 10/30/18 08:00 11/08/18 07:58 Docusate Sodium (Enemeez) 283 mg PRN DAILY PRN DC CONSTIPATION, 1ST CHOICE 10/30/18 10:30 Vancomycin HCl 750 mg/Sodium Chloride 250 ml @ 250 mls/hr Q12H IV 10/31/18 20:00 11/01/18 09:14 DC 11/01/18 08:27 Vancomycin HCl (Vancomycin Trough Level) 1 each 1X ONCE 11/02/18 07:30 11/02/18 07:30 DC Meropenem 500 mg/ Sodium Chloride 50 ml @ 100 mls/hr Q6HRS IV 11/01/18 12:00 11/06/18 12:53 DC 11/06/18 11:38 Atorvastatin Calcium (Lipitor) 80 mg QHS PO 11/01/18 21:00 11/07/18 21:17 Estradiol (Climara Weekly) 0.1 mg WEEKLY TD 11/02/18 09:00 11/02/18 08:40 Enoxaparin Sodium (Lovenox 40mg Syringe) 40 mg Q24H SQ 11/02/18 11:00 11/07/18 11:19 Hydralazine HCl (Apresoline Inj) 10 mg PRN Q6HRS PRN IVP ELEVATED BP, SEE COMMENTS 11/03/18 14:00 11/03/18 14:29 Metoprolol Tartrate (Lopressor Vial) 10 mg PRN Q6HRS PRN IVP HYPERTENSION, SEE COMMENTS 11/03/18 17:00 Furosemide (Lasix) 40 mg 1X ONCE IVP 11/03/18 21:00 11/03/18 21:01 DC 11/03/18 21:00 Vitamin A/Vitamin D (Vitamin A & D Ointment) 1 parag PRN Q1HR PRN TP SKIN PROTECTION 11/04/18 13:45 11/07/18 08:31 Alteplase, Recombinant (Cathflo For Central Catheter Clearance) 1 mg 1X ONCE INT CAT 11/05/18 20:00 11/05/18 20:09 DC 11/05/18 20:17 Alteplase, Recombinant (Cathflo For Central Catheter Clearance) 1 mg 1X ONCE INT CAT 11/05/18 20:00 11/05/18 20:09 DC 11/05/18 20:17 Alteplase, Recombinant (Cathflo For Central Catheter Clearance) 1 mg 1X ONCE INT CAT 11/05/18 20:00 11/05/18 20:09 DC 11/05/18 20:17 Cefepime HCl (Maxipime) 1 gm Q8HRS IVP 11/06/18 14:00 11/08/18 07:16 DC 11/08/18 06:00 Laboratory Tests Test 11/07/18 05:45 11/08/18 06:00 White Blood Count 4.5 x10^3/uL (4.0-11.0) 4.6 x10^3/uL (4.0-11.0) Red Blood Count 3.53 x10^6/uL (3.50-5.40) 3.33 x10^6/uL (3.50-5.40) Hemoglobin 10.7 g/dL (12.0-15.5) 10.2 g/dL (12.0-15.5) Hematocrit 32.7 % (36.0-47.0) 31.0 % (36.0-47.0) Mean Corpuscular Volume 93 fL (79-100) 93 fL (79-100) Mean Corpuscular Hemoglobin 30 pg (25-35) 31 pg (25-35) Mean Corpuscular Hemoglobin Concent 33 g/dL (31-37) 33 g/dL (31-37) Red Cell Distribution Width 15.2 % (11.5-14.5) 15.3 % (11.5-14.5) Platelet Count 402 x10^3/uL (140-400) 342 x10^3/uL (140-400) Neutrophils (%) (Auto) 76 % (31-73) 74 % (31-73) Lymphocytes (%) (Auto) 12 % (24-48) 13 % (24-48) Monocytes (%) (Auto) 6 % (0-9) 7 % (0-9) Eosinophils (%) (Auto) 5 % (0-3) 5 % (0-3) Basophils (%) (Auto) 1 % (0-3) 1 % (0-3) Neutrophils # (Auto) 3.4 x10^3uL (1.8-7.7) 3.4 x10^3uL (1.8-7.7) Lymphocytes # (Auto) 0.5 x10^3/uL (1.0-4.8) 0.6 x10^3/uL (1.0-4.8) Monocytes # (Auto) 0.3 x10^3/uL (0.0-1.1) 0.3 x10^3/uL (0.0-1.1) Eosinophils # (Auto) 0.2 x10^3/uL (0.0-0.7) 0.2 x10^3/uL (0.0-0.7) Basophils # (Auto) 0.1 x10^3/uL (0.0-0.2) 0.0 x10^3/uL (0.0-0.2) Laboratory Tests Test 11/08/18 06:00 White Blood Count 4.6 x10^3/uL (4.0-11.0) Red Blood Count 3.33 x10^6/uL (3.50-5.40) Hemoglobin 10.2 g/dL (12.0-15.5) Hematocrit 31.0 % (36.0-47.0) Mean Corpuscular Volume 93 fL (79-100) Mean Corpuscular Hemoglobin 31 pg (25-35) Mean Corpuscular Hemoglobin Concent 33 g/dL (31-37) Red Cell Distribution Width 15.3 % (11.5-14.5) Platelet Count 342 x10^3/uL (140-400) Neutrophils (%) (Auto) 74 % (31-73) Lymphocytes (%) (Auto) 13 % (24-48) Monocytes (%) (Auto) 7 % (0-9) Eosinophils (%) (Auto) 5 % (0-3) Basophils (%) (Auto) 1 % (0-3) Neutrophils # (Auto) 3.4 x10^3uL (1.8-7.7) Lymphocytes # (Auto) 0.6 x10^3/uL (1.0-4.8) Monocytes # (Auto) 0.3 x10^3/uL (0.0-1.1) Eosinophils # (Auto) 0.2 x10^3/uL (0.0-0.7) Basophils # (Auto) 0.0 x10^3/uL (0.0-0.2) Medications Active Scripts Medications Dose Route/Sig Max Daily Dose Days Date Category Dose Instructions Atorvastatin Calcium 80 Mg Tablet 80 Mg PO HS 11/01/18 Reported Cardizem Tablet (Diltiazem Hcl) 30 Mg Tablet 30 Mg PO HS PRN 10/26/18 Reported Enema Ready To Use (Na Phos,M-B/Na Phos,Di-Ba) 133 Ml Enema 133 Ml RC 01/30/17 Reported Acetaminophen 500 Mg Tablet 1 Tab PO Q6HRS 01/30/17 Reported Probiotic Plus & Cranberry Cap (Cran/C/B.coag/Fos/L.acid/L.rha) 1 Each Capsule 1 Each PO BID 01/30/17 Reported Azithromycin Tablet (Azithromycin) 250 Mg Tablet 250 Mg PO DAILY 01/30/17 Reported Estradiol Transdermal Patch (Estradiol) 1 Each Patch.tdwk 1 Each TD BID WEEKLY 01/30/17 Reported Next dose 06/30/17 Karishma (Norethindrone) 0.35 Mg Tablet 0.35 Mg PO DAILY 01/30/17 Reported Keppra (Levetiracetam) 500 Mg Tablet 750 Mg PO BID 01/30/17 Reported Cardizem Tablet (Diltiazem Hcl) 60 Mg Tablet 60 Mg PO DAILY16 06/12/15 Reported Metoprolol Tartrate 25 Mg Tablet 1 Tab PO BID 12/28/14 Reported Xopenex (Levalbuterol Hcl) 0.63 Mg/3 Ml Vial.neb 1 Vial NEB TID 12/27/14 Reported Valium (Diazepam) 2 Mg Tablet 2 Mg PO TID 10/11/13 Reported Transderm-Scop (Scopolamine) 1 Each Patch.td72 1 Each TD Q3DAYS 07/28/13 Reported Indication: secretions Next dose: 06/30/17 am Nystop (Nystatin) 60 Gm Powder 60 Gm TP PRN 07/28/13 Reported Indication: rash NExt dose: as needed Levalbuterol Hcl 0.63 Mg/3 Ml Vial.neb 0.63 Mg IH TID 07/28/13 Reported Spiriva (Tiotropium [place]) 18 Mcg Cap.w.dev 18 Mcg IH DAILY 07/28/13 Reported Diltiazem Hcl Tablet (Diltiazem Hcl) 60 Mg Tablet 60 Mg PO DAILY07 07/28/13 Reported Provigil (Modafinil) 200 Mg Tablet 200 Mg PO DAILY 07/28/13 Reported Paxil (Paroxetine Hcl) 10 Mg/5 Ml Oral.susp 10 Mg PO DAILY 07/28/13 Reported Baclofen 10 Mg Tablet 10 Mg PO TID 07/28/13 Reported Active Scripts Medications Dose Route/Sig Max Daily Dose Days Date Category Dose Instructions Cardizem Tablet (Diltiazem Hcl) 30 Mg Tablet 30 Mg PO HS PRN 10/26/18 Reported Enema Ready To Use (Na Phos,M-B/Na Phos,Di-Ba) 133 Ml Enema 133 Ml RC 01/30/17 Reported Acetaminophen 500 Mg Tablet 1 Tab PO Q6HRS 01/30/17 Reported Probiotic Plus & Cranberry Cap (Cran/C/B.coag/Fos/L.acid/L.rha) 1 Each Capsule 1 Each PO BID 01/30/17 Reported Azithromycin Tablet (Azithromycin) 250 Mg Tablet 250 Mg PO DAILY 01/30/17 Reported Estradiol Transdermal Patch (Estradiol) 1 Each Patch.tdwk 1 Each TD BID WEEKLY 01/30/17 Reported Next dose 06/30/17 Karishma (Norethindrone) 0.35 Mg Tablet 0.35 Mg PO DAILY 01/30/17 Reported Keppra (Levetiracetam) 500 Mg Tablet 750 Mg PO BID 01/30/17 Reported Cardizem Tablet (Diltiazem Hcl) 60 Mg Tablet 60 Mg PO DAILY16 06/12/15 Reported Metoprolol Tartrate 25 Mg Tablet 1 Tab PO BID 12/28/14 Reported Xopenex (Levalbuterol Hcl) 0.63 Mg/3 Ml Vial.neb 1 Vial NEB TID 12/27/14 Reported Valium (Diazepam) 2 Mg Tablet 2 Mg PO TID 10/11/13 Reported Transderm-Scop (Scopolamine) 1 Each Patch.td72 1 Each TD Q3DAYS 07/28/13 Reported Indication: secretions Next dose: 06/30/17 am Nystop (Nystatin) 60 Gm Powder 60 Gm TP PRN 07/28/13 Reported Indication: rash NExt dose: as needed Levalbuterol Hcl 0.63 Mg/3 Ml Vial.neb 0.63 Mg IH TID 07/28/13 Reported Spiriva (Tiotropium [place]) 18 Mcg Cap.w.dev 18 Mcg IH DAILY 07/28/13 Reported Diltiazem Hcl Tablet (Diltiazem Hcl) 60 Mg Tablet 60 Mg PO DAILY07 07/28/13 Reported Provigil (Modafinil) 200 Mg Tablet 200 Mg PO DAILY 07/28/13 Reported Paxil (Paroxetine Hcl) 10 Mg/5 Ml Oral.susp 10 Mg PO DAILY 07/28/13 Reported Baclofen 10 Mg Tablet 10 Mg PO TID 07/28/13 Reported Comments URINE CULTURE Final Final report URINE CULTURE RES 1 Final Comment Pseudomonas aeruginosa Greater than 100,000 colony forming units per mL URINE CULTURE RES 2 Final Enterococcus faecalis 25,000-50,000 colony forming units per mL ANTIMICROBIAL SUSCEPTIBILITY Final Comment S = Susceptible; I = Intermediate; R = Resistant P = Positive; N = Negative MICS are expressed in micrograms per mL Antibiotic RSLT#1 RSLT#2 RSLT#3 RSLT#4 Amikacin S =16 Cefepime I =16 Ceftazidime S =4 Ciprofloxacin R>=4 R>=8 Gentamicin I =8 Imipenem S =4 Levofloxacin R>=8 R>=8 Meropenem S =1 Nitrofurantoin S<=16 Penicillin R =16 Piperacillin S =32 Tetracycline R>=16 Ticarcillin R>=128 Tobramycin S<=1 Vancomycin S =1 Performed at: [facility] [address], [place], [place] [id number] Malt Specifications Control Assistant: RELL Marques MD, Phone: [phone] RUN DATE: 10/30/18 PAGE 1 RUN TIME: 1510 [facility] [address] [place] [address] Judson Roy M.D., Conference Services Manager PATIENT: MINNIE BENZ ACCT: [id number] LOC: 1 [place] [facility] U: [id number] AGE/SX: 68/F ROOM: 112 RE10/25/[address]: RIGOBERTO VORA III, DO : 1950 BED: 1 DIS: STATUS: ADM IN TLOC: SPEC #: [id number] ALVARO: 10/27/18 STATUS: RES REQ #: [id number] RECD: 10/27/[address]: DARWIN PITTS MD SOURCE: [facility] SITE ENTR: 10/27/[address] [facility] [address]: ANIKET LUNA MD SPDESC: RIGOBERTO VORA III, AMAN U MD KURTZ,BEVERLY BRAVO MD, MD ORDERED: ANAER/AEROB/GS Procedure Result ANAEROBIC-AEROBIC CULTURE PENDING ANAEROBIC RES 1 PENDING AEROBIC CULT Final Final report AEROBIC RES 1 Final Comment Pseudomonas aeruginosa 1+ ANTIMICROBIAL SUSCEPTIBILITY Final Comment S = Susceptible; I = Intermediate; R = Resistant P = Positive; N = Negative MICS are expressed in micrograms per mL Antibiotic RSLT#1 RSLT#2 RSLT#3 RSLT#4 Amikacin S<=2 Cefepime R>=64 Ceftazidime R>=64 Ciprofloxacin R>=4 Gentamicin S<=1 Imipenem I =8 Levofloxacin R>=8 Meropenem S =4 Piperacillin R>=128 Ticarcillin R>=128 Tobramycin S<=1 Impression . Acute on chronic hypercapnic and hypoxic respiratory failure Advanced Multiple sclerosis Sepsis improved UTI Trach site infection Recurrent effusion so far all cultures negative 11/05 Impression: Right sided ultrasound-guided thoracentesis Plan . Acute on chronic hypercapnic and hypoxic respiratory failure ongoing/improved * multifactorial etiologies including sepsis, effusions * continue trilogy at NOC and PRN have shiley cuffed #4 and 6 available at bedside * family training on trilogy use for D/C * nebs/prn suctioning Pleural effusions * S/P s/p right repeat right thoracentesis 11/04, * follow CXR Sepsis:improved * UTI w/ PSA and Enterococcus PCN-R * chronic supra-pubic cath changed last on 11/04 * afebrile * cont. abx per ID * trach site culture positive PSA and blood cultures positive gram + cocci MRSE Advanced Multiple sclerosis: ongoing * supportive care * cont. TF discussed with CHRISTOPHER MENDIOLA MD Nov 08, 2018 10:51
--- NOTE | 2018-11-08 13:03 | RAD ---
Portable chest x-ray compared to similar study dated November 03, 2018 for respiratory failure. FINDINGS: Right PICC line and tracheostomy tubes artery demonstrated and appear appropriately positioned. Large bilateral pleural effusions are again evident, left greater than right. There is suggestion of loculation on the left. There is perhaps slightly better aeration on the right today. Background pulmonary edema is redemonstrated. No new lung parenchymal abnormalities. IMPRESSION: 1. Stable appearance of extensive bilateral pulmonary edema and large bilateral pleural effusions, left greater than right. The effusion on the left has more of a loculated appearance today than on the prior study. 2. Lines and tubes are stable. Electronically signed by: Tushar Holland MD (11/08/2018 1:00 PM) [id number]
--- NOTE | 2018-11-08 13:09 | NUR ---
SS following up with discharge planning. SS spoke with pt's RN and Vane from [facility], ; [phone]. Pt's RN reported that pt has completed trial with trilogy over the weekend. Vane from [facility] reported that she has scheduled training with pt's spouse, family member, and caregiver tomorrow, 11/08/2018, and once completed pt would be able to return to home with spouse and home healthcare. Pt's spouse requesting additional oxygen for community use as well. Vane from [facility] requested that SS send oxygen order to them within 48 hours of discharge with pt's SATS at room air. Pt's RN notified.
[2018-11-08] MEDS: ENOXAPARIN 40 MG/0.4 ML SYRINGE. SQ SCH (13:13)
[2018-11-08] MEDS: NYSTATIN TOPICAL POWDER 15GM BOTTLE. TP SCH (15:53)
[2018-11-08] MEDS: ATORVASTATIN CALCIUM 40 MG TABLET. PO SCH (20:34)
[2018-11-09] VITALS (24 sets, daily range): BP systolic 98–176; BP diastolic 46–93
[2018-11-09 06:10] LABS: BASO # 0.1 x10^3/uL (0.0-0.2); BASO % 1 % (0-3); EOS # 0.3 x10^3/uL (0.0-0.7); EOS % 5 % (0-3); HEMATOCRIT 33.3 % (36.0-47.0); HEMOGLOBIN 11.1 g/dL (12.0-15.5); LYMPH # 0.7 x10^3/uL (1.0-4.8); LYMPH % 13 % (24-48); MEAN CORPUSCULAR HEMOGLOBIN 31 pg (25-35); MEAN CORPUSCULAR HGB CONC 34 g/dL (31-37); MEAN CORPUSCULAR VOLUME 93 fL (79-100); MONO # 0.4 x10^3/uL (0.0-1.1); MONO % 7 % (0-9); NEUT # 4.2 x10^3uL (1.8-7.7); NEUT % 74 % (31-73); PLATELET COUNT 379 x10^3/uL (140-400); RED BLOOD COUNT 3.59 x10^6/uL (3.50-5.40); RED CELL DISTRIBUTION WIDTH 15.6 % (11.5-14.5); WHITE BLOOD COUNT 5.6 x10^3/uL (4.0-11.0)
--- NOTE | 2018-11-09 06:56 | PDOC ---
Infectious Disease Note Subjective Subjective Sleeping but awakens easily Comfortable, denies pain/SOA/nausea. on trilogy Vital Sign Vital Signs Vital Signs Date Time Temp Pulse Resp B/P (MAP) Pulse Ox O2 Delivery O2 Flow Rate FiO2 11/09/18 06:00 97 14 121/70 (87) 96 trilogy 4.0 11/09/18 04:00 98.4 98.4 Physical Exam PHYSICAL EXAM GENERAL: Appears comfortable, awakens, NAD HEENT: Oral cavity clear NECK: Tracheostomy in place.on Trilogy LUNGS: Decreased in bases HEART: S1 and S2 regular. ABDOMEN: Obese, distended, soft and nontender. PEG tube. SPC (10/25) EXTREMITIES: Generalized edema. No cyanosis NEUROLOGICAL: Alert, quadriplegia. mouths words and nods SKIN: No rash RUE-PICC clean Labs Lab Laboratory Tests Test 11/09/18 06:00 White Blood Count 5.6 x10^3/uL (4.0-11.0) Red Blood Count 3.59 x10^6/uL (3.50-5.40) Hemoglobin 11.1 g/dL (12.0-15.5) Hematocrit 33.3 % (36.0-47.0) Mean Corpuscular Volume 93 fL (79-100) Mean Corpuscular Hemoglobin 31 pg (25-35) Mean Corpuscular Hemoglobin Concent 34 g/dL (31-37) Red Cell Distribution Width 15.6 % (11.5-14.5) Platelet Count 379 x10^3/uL (140-400) Neutrophils (%) (Auto) 74 % (31-73) Lymphocytes (%) (Auto) 13 % (24-48) Monocytes (%) (Auto) 7 % (0-9) Eosinophils (%) (Auto) 5 % (0-3) Basophils (%) (Auto) 1 % (0-3) Neutrophils # (Auto) 4.2 x10^3uL (1.8-7.7) Lymphocytes # (Auto) 0.7 x10^3/uL (1.0-4.8) Monocytes # (Auto) 0.4 x10^3/uL (0.0-1.1) Eosinophils # (Auto) 0.3 x10^3/uL (0.0-0.7) Basophils # (Auto) 0.1 x10^3/uL (0.0-0.2) Micro Microbiology 10/26/18 Blood Culture - Final, Complete NO GROWTH AFTER 5 DAYS 10/27/18 Anaerobic/Aerobic Culture - Final, Complete 10/27/18 Anaerobic Culture Result 1 (NANDO) - Final, Complete 10/27/18 Aerobic Culture - Final, Complete 10/27/18 Aerobic Culture Result 1 (NANDO) - Final, Complete 10/27/18 Gram Stain - Final, Complete 10/27/18 Gram Stain Result 1 (NANDO) - Final, Complete 10/27/18 Gram Stain Result 2 (NANDO) - Final, Complete 11/02/18 - Final, Complete 11/02/18 - Final, Complete 11/02/18 - Final, Complete 11/02/18 Gram Stain Evaluation - Final, Complete 11/02/18 Sputum Culture - Final, Complete 11/02/18 Sputum Result 1 - Final, Complete 11/02/18 Antimicrobic Susceptibility - Final, Complete 10/25/18 Urine Culture - Final, Complete 10/25/18 Urine Culture Result 1 (NANDO) - Final, Complete 10/25/18 Urine Culture Result 2 (NANDO) - Final, Complete 10/25/18 Antimicrobic Susceptibility - Final, Complete 10/27/18 Anaerobic/Aerobic Culture - Final, Complete 10/27/18 Anaerobic Culture Result 1 (NANDO) - Final, Complete 10/27/18 Aerobic Culture - Final, Complete 10/27/18 Aerobic Culture Result 1 (NANDO) - Final, Complete 10/27/18 Antimicrobic Susceptibility - Final, Complete 10/27/18 Gram Stain - Final, Complete 10/27/18 Gram Stain Result 1 (NANDO) - Final, Complete 10/27/18 Gram Stain Result 2 (NANDO) - Final, Complete Objective Assessment Fever, resolved Lactic acidosis and sepsis.resolved Suspected aspiration BC + 1/2 G + cocci - MRSE 10/25. Likely contaminant UTI w/ PSA and Enterococcus (PCN- R). 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 cx neg; s/p right thoracen tesis 11/03 Hypercapnic respiratory failure. Advanced multiple scleroses. h/o seizures on Keppra h/o MRSA, VRE, c. diff Plan Plan of Care Off abx and doing well Effusions per Pulm ID to sign off D/w RN JOSÉ LUIS TREADWELL MD Nov 09, 2018 06:56
[2018-11-09] MEDS: NYSTATIN TOPICAL POWDER 15GM BOTTLE. TP SCH ×2 (07:46→20:53)
[2018-11-09] MEDS: PARoxetine 10 MG TABLET PO SCH (07:46)
[2018-11-09] MEDS: METOPROLOL TART IMMED RELEASE 25 MG TABLET. PO SCH ×2 (07:47→20:52)
[2018-11-09] MEDS: diazePAM 2 MG TABLET PO SCH ×3 (07:47→20:53)
[2018-11-09] MEDS: ASPIRIN CHEWABLE 81 MG TABLET. PO SCH (07:47)
[2018-11-09] MEDS: levETIRAcetam 250 MG TABLET PO SCH ×2 (07:47→20:53)
[2018-11-09] MEDS: BACLOFEN 10 MG TABLET. PO SCH ×3 (07:48→20:53)
[2018-11-09] MEDS: dilTIAZem HCL 30 MG TABLET PO SCH ×3 (07:48→20:53)
[2018-11-09] MEDS: IPRATRPIUM/ALBUTEROL 0.5/2.5MG 3 ML NEBU. NEB SCH ×4 (07:59→19:43)
[2018-11-09] MEDS: BUDESONIDE 0.5 MG/2 ML NEBU. NEB SCH ×2 (07:59→19:43)
[2018-11-09] MEDS: ESTRADIOL WEEKLY 0.1 MG PATCH. TD SCH (08:02)
--- NOTE | 2018-11-09 08:22 | SNU/HH DC ---
DISCHARGE WITH HOME HEALTH DISCHARGE INFORMATION: Discharge Date: Nov 09, 2018 Final Diagnosis: Problems Medical Problems: (1) Hypercapnic respiratory failure Status: Acute Condition on Discharge: Stable CODE STATUS: Code Status: Full HOME HEALTH: Face to Face: I certify this patient is under my care and that I, or a nurse practitioner or physician's television production assistant working with me, had a face to face encounter that meets the physician face to face encounter requirements with this patient on []. Medical Complications: COPD, Pneumonia RN For Eval/Treatment: Yes Physical Therapy For: Evalulation/Treatment Occupational Therapy For: Evaluation/Treatment Speech Language Pathology For: Evaluation/Treatment Home Health Aide For: Self-care PEANUT GRADER For: Community Resources Pt Meets Homebound Status: Other: (bed bound) POST DISCHARGE ORDERS: Activity Instructions for Disc: Bedrest today Weight Bearing Status after Di: Other, see below DIET AFTER DISCHARGE: Tfs Wound/Incision Care: Keep wound/cast CDI CHECKS AFTER DISCHARGE: Checks after discharge: Check blood press - daily, Check your Temp as needed FOLLOW-UP: PCP to follow Home Health: 2 weeks post dc TREATMENT/EQUIPMENT ORDERS: Adaptive Equipment Issued: None Discharge Respiratory Equipmen: Oxygen, BiPAP CERTIFICATION STATEMENT: Certification Statement: Certification Statement: Based on the above finding, I certify that this patient is confined to the home and needs intermittent long term care, physical therapy and/or speech therapy, or continues to need occupational therapy.~ This patient is under my care, and I have initiated the establishment of the plan of care.~ This patient will be followed by myself or a community physician who will periodically review the plan of care. Home Meds Reported Medications Atorvastatin Calcium (ATORVASTATIN CALCIUM) 80 Mg Tablet, 80 MG PO HS for FOR CHOLESTEROL, #30 TAB 0 Refills 11/01/18 Diltiazem Hcl (CARDIZEM TABLET) 30 Mg Tablet, 30 MG PO HS PRN for ELEVATED BP, SEE COMMENTS, #30 TAB 0 Refills 10/26/18 Na Phos,M-B/Na Phos,Di-Ba (ENEMA READY TO USE) 133 Ml Enema, 133 ML RC for CONSTIPATION, EACH 01/30/17 Acetaminophen (ACETAMINOPHEN) 500 Mg Tablet, 1 TAB PO Q6HRS, #60 TAB 01/30/17 Cran/C/B.coag/Fos/L.acid/L.rha (Probiotic Plus & Cranberry Cap) 1 Each Capsule, 1 EACH PO BID, CAP 01/30/17 Azithromycin (AZITHROMYCIN TABLET) 250 Mg Tablet, 250 MG PO DAILY for ANTI- BIOTIC, TAB 0 Refills 01/30/17 Estradiol (ESTRADIOL TRANSDERMAL PATCH) 1 Each Patch.tdwk, 1 EACH TD Bid weekly, PATCH Next dose 06/30/17 01/30/17 Norethindrone (FABIOLA) 0.35 Mg Tablet, 0.35 MG PO DAILY, TAB 01/30/17 Levetiracetam (KEPPRA) 500 Mg Tablet, 750 MG PO BID, TAB 01/30/17 Diltiazem Hcl (CARDIZEM TABLET) 60 Mg Tablet, 60 MG PO DAILY16 for FOR HYPERTENSION, #30 TAB 0 Refills 06/12/15 Metoprolol Tartrate (METOPROLOL TARTRATE) 25 Mg Tablet, 1 TAB PO BID, #180 TAB 1 Refill 12/28/14 Levalbuterol Hcl (XOPENEX) 0.63 Mg/3 Ml Vial.neb, 1 VIAL NEB TID, #72 ML 2 Refills 12/27/14 Diazepam (VALIUM) 2 Mg Tablet, 2 MG PO TID 10/11/13 Scopolamine (TRANSDERM-SCOP) 1 Each Patch.td72, 1 EACH TD Q3DAYS Indication: secretions Next dose: 06/30/17 am 07/28/13 Nystatin (NYSTOP) 60 Gm Powder, 60 GM TP PRN for RASH Indication: rash NExt dose: as needed 07/28/13 Levalbuterol Hcl (LEVALBUTEROL HCL) 0.63 Mg/3 Ml Vial.neb, 0.63 MG IH TID 07/28/13 Tiotropium [place] (SPIRIVA) 18 Mcg Cap.w.dev, 18 MCG IH DAILY 07/28/13 Diltiazem Hcl (DILTIAZEM HCL TABLET) 60 Mg Tablet, 60 MG PO DAILY07 07/28/13 Modafinil (PROVIGIL) 200 Mg Tablet, 200 MG PO DAILY 07/28/13 Paroxetine Hcl (PAXIL) 10 Mg/5 Ml Oral.susp, 10 MG PO DAILY 07/28/13 Baclofen (BACLOFEN) 10 Mg Tablet, 10 MG PO TID 07/28/13 CAMMY GARCIA MD Nov 09, 2018 08:22
--- NOTE | 2018-11-09 10:27 | PDOC3 ---
Discharge Summary Visit Information Date of Admission: Oct 25, 2018 Date of Discharge: Nov 09, 2018 Admitting Diagnosis Comment: Acute on chronic respiratory failure Bilateral pleural effusion Advanced multiple sclerosis tracheostomy history of seizures PEG tube baclofen pump colostomy Suprapubic catheter S.p thoracentesis > 1L FULL CODE Final Diagnosis Problems Medical Problems: (1) Hypercapnic respiratory failure Status: Acute Brief Hospital Course Allergies Allergies Coded Allergies Type Severity Reaction Last Updated Verified I S O L A T I O N *CONTACT* Allergy Unknown 11/02/18 Yes No Known Medication Allergies Allergy Unknown 11/02/18 Yes Vital Signs Vital Signs Date Time Temp Pulse Resp B/P (MAP) Pulse Ox O2 Delivery O2 Flow Rate FiO2 11/09/18 10:00 80 14 115/46 (69) 98 Ventilator 11/09/18 08:05 4.0 11/09/18 08:00 98.3 98.3 Lab Results Laboratory Tests Test 11/08/18 06:00 11/09/18 06:00 White Blood Count 4.6 x10^3/uL (4.0-11.0) 5.6 x10^3/uL (4.0-11.0) Red Blood Count 3.33 x10^6/uL (3.50-5.40) 3.59 x10^6/uL (3.50-5.40) Hemoglobin 10.2 g/dL (12.0-15.5) 11.1 g/dL (12.0-15.5) Hematocrit 31.0 % (36.0-47.0) 33.3 % (36.0-47.0) Mean Corpuscular Volume 93 fL (79-100) 93 fL (79-100) Mean Corpuscular Hemoglobin 31 pg (25-35) 31 pg (25-35) Mean Corpuscular Hemoglobin Concent 33 g/dL (31-37) 34 g/dL (31-37) Red Cell Distribution Width 15.3 % (11.5-14.5) 15.6 % (11.5-14.5) Platelet Count 342 x10^3/uL (140-400) 379 x10^3/uL (140-400) Neutrophils (%) (Auto) 74 % (31-73) 74 % (31-73) Lymphocytes (%) (Auto) 13 % (24-48) 13 % (24-48) Monocytes (%) (Auto) 7 % (0-9) 7 % (0-9) Eosinophils (%) (Auto) 5 % (0-3) 5 % (0-3) Basophils (%) (Auto) 1 % (0-3) 1 % (0-3) Neutrophils # (Auto) 3.4 x10^3uL (1.8-7.7) 4.2 x10^3uL (1.8-7.7) Lymphocytes # (Auto) 0.6 x10^3/uL (1.0-4.8) 0.7 x10^3/uL (1.0-4.8) Monocytes # (Auto) 0.3 x10^3/uL (0.0-1.1) 0.4 x10^3/uL (0.0-1.1) Eosinophils # (Auto) 0.2 x10^3/uL (0.0-0.7) 0.3 x10^3/uL (0.0-0.7) Basophils # (Auto) 0.0 x10^3/uL (0.0-0.2) 0.1 x10^3/uL (0.0-0.2) Laboratory Tests Test 11/09/18 06:00 White Blood Count 5.6 x10^3/uL (4.0-11.0) Red Blood Count 3.59 x10^6/uL (3.50-5.40) Hemoglobin 11.1 g/dL (12.0-15.5) Hematocrit 33.3 % (36.0-47.0) Mean Corpuscular Volume 93 fL (79-100) Mean Corpuscular Hemoglobin 31 pg (25-35) Mean Corpuscular Hemoglobin Concent 34 g/dL (31-37) Red Cell Distribution Width 15.6 % (11.5-14.5) Platelet Count 379 x10^3/uL (140-400) Neutrophils (%) (Auto) 74 % (31-73) Lymphocytes (%) (Auto) 13 % (24-48) Monocytes (%) (Auto) 7 % (0-9) Eosinophils (%) (Auto) 5 % (0-3) Basophils (%) (Auto) 1 % (0-3) Neutrophils # (Auto) 4.2 x10^3uL (1.8-7.7) Lymphocytes # (Auto) 0.7 x10^3/uL (1.0-4.8) Monocytes # (Auto) 0.4 x10^3/uL (0.0-1.1) Eosinophils # (Auto) 0.3 x10^3/uL (0.0-0.7) Basophils # (Auto) 0.1 x10^3/uL (0.0-0.2) Brief Hospital Course Ms. Johnson is a 68 old white female known to us because she has advanced MS and has had multiple admissions here for complications of advanced MS. Basically she is bedbound, trach PEG. She has tube feeds. She has a loving and 24-hour care at home. She always discharges to home health not to LTAC or SNU. In any case course remarkable here for needing thoracentesis comanage in the ICU pulmonary cardiology. Also needed urology. Indwelling Smalls catheter. Status post sepsis, history of multiple infections. Some wounds or chronic bedsores. We'll go back home health with no change in meds. 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 Discharge Information Condition at Discharge: Improved, Stable Disposition/Orders: D/C to Home w/ HH Scheduled Acetaminophen (Acetaminophen) 500 Mg Tablet, 1 TAB PO Q6HRS, #60 (Reported) Entered as Reported by: BRAYAN MCCALLUM on 01/30/17 1630 Last Action: Converted on 10/26/181108 by SOL FATIMA MD Atorvastatin Calcium (Atorvastatin Calcium) 80 Mg Tablet, 80 MG PO HS for FOR CHOLESTEROL, #30 Ref 0 (Reported) Entered as Reported by: Kym Moore on 11/01/18 1054 Last Action: Converted on 11/01/181105 by FLAQUITO LIRA MD Azithromycin (Azithromycin Tablet) 250 Mg Tablet, 250 MG PO DAILY for ANTI- BIOTIC, Ref 0 (Reported) Entered as Reported by: BRAYAN MCCALLUM on 01/30/17 1630 Last Action: Continued on 10/26/181108 by SOL FATIMA MD Baclofen (Baclofen) 10 Mg Tablet, 10 MG PO TID, (Reported) Entered as Reported by: MCKENNA ESCOBAR on 07/28/13 1506 Last Action: Continued on 10/26/181108 by SOL FATIMA MD Cran/C/B.coag/Fos/L.acid/L.rha (Probiotic Plus & Cranberry Cap) 1 Each Capsule, 1 EACH PO BID, (Reported) Entered as Reported by: BRAYAN MCCALLUM on 01/30/17 1630 Last Action: Converted on 10/26/181108 by SOL FATIMA MD Diazepam (Valium) 2 Mg Tablet, 2 MG PO TID, (Reported) Entered as Reported by: RENETTA JASMINE on 10/11/13 2148 Last Action: Continued on 10/26/181108 by SOL FATIMA MD Diltiazem Hcl (Diltiazem Hcl Tablet) 60 Mg Tablet, 60 MG PO DAILY07, (Reported) Entered as Reported by: MCKENNA ESCOBAR on 07/28/13 1509 Last Action: Converted on 10/26/181108 by SOL FATIMA MD Diltiazem Hcl (Cardizem Tablet) 60 Mg Tablet, 60 MG PO DAILY16 for FOR HYPERTENSION, #30 Ref 0 (Reported) Entered as Reported by: CARLOTTA BURGOS on 06/12/15 1307 Last Action: Converted on 10/26/181108 by SOL FATIMA MD Estradiol (Estradiol Transdermal Patch) 1 Each Patch.tdwk, 1 EACH TD Bid weekly, (Reported) Next dose 06/30/17 Entered as Reported by: BRAYAN MCCALLUM on 01/30/17 1621 Last Action: Continued on 10/26/181108 by SOL FATIMA MD Levalbuterol Hcl (Levalbuterol Hcl) 0.63 Mg/3 Ml Vial.neb, 0.63 MG IH TID, (Reported) Entered as Reported by: MCKENNA ESCOBAR on 07/28/13 1511 Last Action: Converted on 10/26/181108 by SOL FATIMA MD Levalbuterol Hcl (Xopenex) 0.63 Mg/3 Ml Vial.neb, 1 VIAL NEB TID, #72 Ref 2 (Reported) Entered as Reported by: JOSUE RIGGS on 12/27/14 1733 Last Action: Converted on 10/26/181108 by SOL FATIMA MD Levetiracetam (Keppra) 500 Mg Tablet, 750 MG PO BID, (Reported) Entered as Reported by: BRAYAN MCCALLUM on 01/30/17 162 Last Action: Continued on 10/26/181108 by SOL FATIMA MD Metoprolol Tartrate (Metoprolol Tartrate) 25 Mg Tablet, 1 TAB PO BID, #180 Ref 1 (Reported) Entered as Reported by: JAYSON ROY on 12/28/14 165 Last Action: Continued on 10/26/181108 by SOL FATIMA MD Modafinil (Provigil) 200 Mg Tablet, 200 MG PO DAILY, (Reported) Entered as Reported by: MCKENNA ESCOBAR on 07/28/13 1507 Last Action: Converted on 10/26/181108 by SOL FATIMA MD Norethindrone (Karishma) 0.35 Mg Tablet, 0.35 MG PO DAILY, (Reported) Entered as Reported by: BRAYAN MCCALLUM on 01/30/17 162 Last Action: Converted on 10/26/181108 by SOL FATIMA MD Paroxetine Hcl (Paxil) 10 Mg/5 Ml Oral.susp, 10 MG PO DAILY, (Reported) Entered as Reported by: MCKENNA ESCOBAR on 07/28/13 150 Last Action: Converted on 10/26/181108 by SOL FATIMA MD Scopolamine (Transderm-Scop) 1 Each Patch.td72, 1 EACH TD Q3DAYS, (Reported) Indication: secretions Next dose: 06/30/17 am Entered as Reported by: MCKENNA ESCOBAR on 07/28/13 1515 Last Action: Converted on 10/26/181108 by SOL FATIMA MD Tiotropium [place] (Spiriva) 18 Mcg Cap.w.dev, 18 MCG IH DAILY, (Reported) Entered as Reported by: MCKENNA ESCOBAR on 07/28/13 1510 Last Action: Converted on 10/26/181108 by SOL FATIMA MD Scheduled PRN Diltiazem Hcl (Cardizem Tablet) 30 Mg Tablet, 30 MG PO HS PRN for ELEVATED BP, SEE COMMENTS, #30 Ref 0 (Reported) Entered as Reported by: ROSS RO RN on 10/26/18 0309 Last Action: Continued on 10/26/181108 by SOL FATIMA MD Nystatin (Nystop) 60 Gm Powder, 60 GM TP for RASH, (Reported) Indication: rash NExt dose: as needed Entered as Reported by: MCKENNA ESCOBAR on 07/28/13 1514 Last Action: Continued on 10/26/181108 by SOL FATIMA MD Miscellaneous Medications Na Phos,M-B/Na Phos,Di-Ba (Enema Ready To Use) 133 Ml Enema, 133 ML RC for CONSTIPATION, (Reported) Entered as Reported by: BRAYAN MCCALLUM on 01/30/17 1635 Last Action: Continued on 10/26/181108 by MD RADHA MORENO CHERRIE Y MD Nov 09, 2018 10:27
--- NOTE | 2018-11-09 10:36 | NUR ---
SS following up with discharge planning. Vane from [facility], ; fax [phone], contacted SS and notified that she will be out to meet with pt's family at 1330 to complete training on Tr[employer]. Case management spoke with pt's RN and provided paperwork sent by [facility] for Dr. Estrada to sign to finalize the order. Case management requested that a SAT at room air be completed on pt at room air and documented for additional oxygen per pt's spouse request. SS will need paper script for oxygen once complete.
[2018-11-09] MEDS: ENOXAPARIN 40 MG/0.4 ML SYRINGE. SQ SCH (11:24)
--- NOTE | 2018-11-09 11:48 | PDOC ---
PULMONARY PROGRESS NOTES Subjective remained on trilogy overnight with some asynchrony, currently on t-sheild. Nursing reports reduced secretions no fevers or concerns from nursing staff. Plant o D/C home today on trilogy. Vitals Laboratory Tests Test 11/09/18 06:00 White Blood Count 5.6 x10^3/uL Red Blood Count 3.59 x10^6/uL Hemoglobin 11.1 g/dL Hematocrit 33.3 % Mean Corpuscular Volume 93 fL Mean Corpuscular Hemoglobin 31 pg Mean Corpuscular Hemoglobin Concent 34 g/dL Red Cell Distribution Width 15.6 % Platelet Count 379 x10^3/uL Neutrophils (%) (Auto) 74 % Lymphocytes (%) (Auto) 13 % Monocytes (%) (Auto) 7 % Eosinophils (%) (Auto) 5 % Basophils (%) (Auto) 1 % Neutrophils # (Auto) 4.2 x10^3uL Lymphocytes # (Auto) 0.7 x10^3/uL Monocytes # (Auto) 0.4 x10^3/uL Eosinophils # (Auto) 0.3 x10^3/uL Basophils # (Auto) 0.1 x10^3/uL Current Medications Medications (Trade) Dose Ordered Sig/Lidia Route PRN Reason Start Time Stop Time Status Last Admin Dose Admin Sodium Chloride 1,000 ml @ 1,000 mls/hr Q1H IV 10/25/18 17:28 10/25/18 18:27 DC 10/25/18 19:04 Albuterol/ Ipratropium (Duoneb) 3 ml 1X ONCE NEB 10/25/18 17:30 10/25/18 17:31 DC 10/25/18 17:53 Methylprednisolone Sodium Succinate (SOLU-Medrol 125MG VIAL) 125 mg 1X ONCE IV 10/25/18 17:30 10/25/18 17:31 DC 10/25/18 19:04 Ceftriaxone Sodium (Rocephin) 1 gm 1X ONCE IVP 10/25/18 19:00 10/25/18 19:02 DC 10/25/18 20:24 Ondansetron HCl (Zofran) 4 mg PRN Q8HRS PRN IV NAUSEA/VOMITING 10/25/18 20:15 10/26/18 20:14 DC Sodium Chloride 1,000 ml @ 126 mls/hr Q7H57M IV 10/25/18 20:07 10/26/18 07:12 DC Acetaminophen (Tylenol) 650 mg 1X ONCE PEG 10/26/18 04:30 10/26/18 04:32 DC 10/26/18 04:59 Piperacillin Sod/ Tazobactam Sod (Zosyn Per Pharmacy) 1 each PRN DAILY PRN MC SEE COMMENTS 10/26/18 07:15 Cancel Vancomycin HCl (Vanco Per Pharmacy) 1 each PRN DAILY PRN MC SEE COMMENTS 10/26/18 07:15 11/01/18 09:17 DC 10/31/18 17:49 Piperacillin Sod/ Tazobactam Sod 3.375 gm/Sodium Chloride 50 ml @ 100 mls/hr Q6HRS IV 10/26/18 08:00 11/01/18 09:30 DC 11/01/18 06:01 Vancomycin HCl 1.75 gm/Sodium Chloride 500 ml @ 250 mls/hr 1X ONCE IV 10/26/18 08:00 10/26/18 09:59 DC 10/26/18 09:25 Azithromycin (Zithromax) 250 mg DAILY PO 10/27/18 09:00 UNV Baclofen (Lioresal) 10 mg TID PO 10/26/18 14:00 11/09/18 07:48 Diazepam (Valium) 2 mg TID PO 10/26/18 14:00 11/09/18 07:47 Diltiazem HCl (Cardizem) 30 mg QHS PO 10/26/18 21:00 11/08/18 20:34 Estradiol (Climara Weekly) 1 mg WEEKLY TD 11/02/18 09:00 11/02/18 09:00 DC Levetiracetam (Keppra) 750 mg BID PO 10/26/18 12:00 11/09/18 07:47 Metoprolol Tartrate (Lopressor) 25 mg BID PO 10/26/18 12:00 11/09/18 07:47 Sodium Monofluorophosphate (Fleet Adult) 133 ml DAILY PRN RC CONSTIPATION, 2ND CHOICE UT 10/26/18 11:15 11/01/18 12:29 Nystatin (Nystop) 1 parag PRN BID PRN TP RASH 10/26/18 11:15 10/27/18 10:35 DC Acetaminophen (Tylenol) 500 mg PRN Q6HRS PRN PO MILD PAIN / TEMP 10/26/18 11:30 Non-Formulary Medication (Cran/C/B.coag/ Fos/L.acid/L.rha (Probiotic Plus & Cranberry Cap)) 1 each BID PO 10/26/18 21:00 UNV Diltiazem HCl (Cardizem) 60 mg DAILY16 PO 10/26/18 16:00 11/08/18 15:52 Diltiazem HCl (Cardizem) 60 mg DAILY07 PO 10/27/18 07:00 11/09/18 07:48 Non-Formulary Medication (Levalbuterol Hcl ) 0.63 mg TID IH 10/26/18 14:00 UNV Non-Formulary Medication (Levalbuterol Hcl (Xopenex)) 1 vial TID NEB 10/26/18 14:00 UNV Non-Formulary Medication (Modafinil (Provigil)) 200 mg DAILY PO 10/27/18 11:30 11/09/18 08:01 Non-Formulary Medication (Norethindrone (Karishma)) 0.35 mg DAILY PO 10/27/18 09:00 UNV Paroxetine HCl (Paxil) 10 mg DAILY PO 10/26/18 12:00 11/09/18 07:46 Scopolamine (Transderm-Scop) 1 patch Q3DAYS TD 10/27/18 09:00 11/08/18 08:24 Non-Formulary Medication (Tiotropium Washburn (Spiriva)) 18 mcg DAILY IH 10/27/18 09:00 UNV Albuterol/ Ipratropium (Duoneb) 3 ml RTQID NEB 10/26/18 12:00 11/09/18 07:59 Albuterol Sulfate (Ventolin Neb Soln) 2.5 mg PRN TID PRN NEB SHORTNESS OF BREATH 10/26/18 11:30 Vancomycin HCl 1 gm/Sodium Chloride 250 ml @ 250 mls/hr Q24H IV 10/27/18 09:30 10/28/18 12:00 DC 10/28/18 09:51 Vancomycin HCl (Vancomycin Trough Level) 1 each 1X ONCE MC 10/28/18 09:00 10/28/18 09:01 DC 10/28/18 09:00 Aspirin (Children'S Aspirin) 81 mg DAILYWBKFT PO 10/26/18 14:30 11/09/18 07:47 Non-Formulary Medication 1 ea PRN TID PRN PO APPLY TO AFFECTED AREA 10/27/18 11:00 11/01/18 08:33 Vancomycin HCl 1.25 gm/Sodium Chloride 250 ml @ 167 mls/hr Q12H IV 10/28/18 22:00 10/29/18 22:05 DC 10/29/18 08:52 Vancomycin HCl (Vancomycin Trough Level) 1 each 1X ONCE 10/29/18 21:30 10/29/18 21:31 DC 10/29/18 21:30 Vancomycin HCl 1 gm/Sodium Chloride 250 ml @ 250 mls/hr Q12H IV 10/30/18 05:00 10/31/18 17:34 DC 10/31/18 06:07 Vancomycin HCl (Vancomycin Trough Level) 1 each 1X ONCE 10/31/18 17:30 10/31/18 17:34 DC 10/31/18 17:30 Budesonide (Pulmicort) 0.5 mg RTBID NEB 10/30/18 08:00 11/09/18 07:59 Docusate Sodium (Enemeez) 283 mg PRN DAILY PRN UT CONSTIPATION, 1ST CHOICE 10/30/18 10:30 11/08/18 16:05 Vancomycin HCl 750 mg/Sodium Chloride 250 ml @ 250 mls/hr Q12H IV 10/31/18 20:00 11/01/18 09:14 DC 11/01/18 08:27 Vancomycin HCl (Vancomycin Trough Level) 1 each 1X ONCE 11/02/18 07:30 11/02/18 07:30 DC Meropenem 500 mg/ Sodium Chloride 50 ml @ 100 mls/hr Q6HRS IV 11/01/18 12:00 11/06/18 12:53 DC 11/06/18 11:38 Atorvastatin Calcium (Lipitor) 80 mg QHS PO 11/01/18 21:00 11/08/18 20:34 Estradiol (Climara Weekly) 0.1 mg WEEKLY TD 11/02/18 09:00 11/09/18 08:02 Enoxaparin Sodium (Lovenox 40mg Syringe) 40 mg Q24H SQ 11/02/18 11:00 11/09/18 11:24 Hydralazine HCl (Apresoline Inj) 10 mg PRN Q6HRS PRN IVP ELEVATED BP, SEE COMMENTS 11/03/18 14:00 11/03/18 14:29 Metoprolol Tartrate (Lopressor Vial) 10 mg PRN Q6HRS PRN IVP HYPERTENSION, SEE COMMENTS 11/03/18 17:00 Furosemide (Lasix) 40 mg 1X ONCE IVP 11/03/18 21:00 11/03/18 21:01 DC 11/03/18 21:00 Vitamin A/Vitamin D (Vitamin A & D Ointment) 1 parag PRN Q1HR PRN TP SKIN PROTECTION 11/04/18 13:45 11/07/18 08:31 Alteplase, Recombinant (Cathflo For Central Catheter Clearance) 1 mg 1X ONCE INT CAT 11/05/18 20:00 11/05/18 20:09 DC 11/05/18 20:17 Alteplase, Recombinant (Cathflo For Central Catheter Clearance) 1 mg 1X ONCE INT CAT 11/05/18 20:00 11/05/18 20:09 DC 11/05/18 20:17 Alteplase, Recombinant (Cathflo For Central Catheter Clearance) 1 mg 1X ONCE INT CAT 11/05/18 20:00 11/05/18 20:09 DC 11/05/18 20:17 Cefepime HCl (Maxipime) 1 gm Q8HRS IVP 11/06/18 14:00 11/08/18 07:16 DC 11/08/18 06:00 Nystatin (Nystop) 1 parag BID TP 11/08/18 16:00 11/09/18 07:46 Vital Signs Date Time Temp Pulse Resp B/P (MAP) Pulse Ox O2 Delivery O2 Flow Rate FiO2 11/09/18 11:00 82 13 130/54 (79) 82 Ventilator 11/09/18 09:15 4.0 11/09/18 08:00 98.3 98.3 Comments Pt. is non-verbal on exam, unable to obtain 2/2 trach General: No acute distress HEENT: Other (nc at perrl nose throat clear, neck, trach site ok no lad, no thyromegaly) Lungs: Other (decrease bs) Cardiovascular: S1, S2 Abdomen: Soft, Non-tender, Other (peg tube in palce ) Neuro Exam: Alert Extremities: No Edema, Other (edema +1 BLE) Skin: Warm, Dry Labs Laboratory Tests Test 11/08/18 06:00 11/09/18 06:00 White Blood Count 4.6 x10^3/uL (4.0-11.0) 5.6 x10^3/uL (4.0-11.0) Red Blood Count 3.33 x10^6/uL (3.50-5.40) 3.59 x10^6/uL (3.50-5.40) Hemoglobin 10.2 g/dL (12.0-15.5) 11.1 g/dL (12.0-15.5) Hematocrit 31.0 % (36.0-47.0) 33.3 % (36.0-47.0) Mean Corpuscular Volume 93 fL (79-100) 93 fL (79-100) Mean Corpuscular Hemoglobin 31 pg (25-35) 31 pg (25-35) Mean Corpuscular Hemoglobin Concent 33 g/dL (31-37) 34 g/dL (31-37) Red Cell Distribution Width 15.3 % (11.5-14.5) 15.6 % (11.5-14.5) Platelet Count 342 x10^3/uL (140-400) 379 x10^3/uL (140-400) Neutrophils (%) (Auto) 74 % (31-73) 74 % (31-73) Lymphocytes (%) (Auto) 13 % (24-48) 13 % (24-48) Monocytes (%) (Auto) 7 % (0-9) 7 % (0-9) Eosinophils (%) (Auto) 5 % (0-3) 5 % (0-3) Basophils (%) (Auto) 1 % (0-3) 1 % (0-3) Neutrophils # (Auto) 3.4 x10^3uL (1.8-7.7) 4.2 x10^3uL (1.8-7.7) Lymphocytes # (Auto) 0.6 x10^3/uL (1.0-4.8) 0.7 x10^3/uL (1.0-4.8) Monocytes # (Auto) 0.3 x10^3/uL (0.0-1.1) 0.4 x10^3/uL (0.0-1.1) Eosinophils # (Auto) 0.2 x10^3/uL (0.0-0.7) 0.3 x10^3/uL (0.0-0.7) Basophils # (Auto) 0.0 x10^3/uL (0.0-0.2) 0.1 x10^3/uL (0.0-0.2) Laboratory Tests Test 11/09/18 06:00 White Blood Count 5.6 x10^3/uL (4.0-11.0) Red Blood Count 3.59 x10^6/uL (3.50-5.40) Hemoglobin 11.1 g/dL (12.0-15.5) Hematocrit 33.3 % (36.0-47.0) Mean Corpuscular Volume 93 fL (79-100) Mean Corpuscular Hemoglobin 31 pg (25-35) Mean Corpuscular Hemoglobin Concent 34 g/dL (31-37) Red Cell Distribution Width 15.6 % (11.5-14.5) Platelet Count 379 x10^3/uL (140-400) Neutrophils (%) (Auto) 74 % (31-73) Lymphocytes (%) (Auto) 13 % (24-48) Monocytes (%) (Auto) 7 % (0-9) Eosinophils (%) (Auto) 5 % (0-3) Basophils (%) (Auto) 1 % (0-3) Neutrophils # (Auto) 4.2 x10^3uL (1.8-7.7) Lymphocytes # (Auto) 0.7 x10^3/uL (1.0-4.8) Monocytes # (Auto) 0.4 x10^3/uL (0.0-1.1) Eosinophils # (Auto) 0.3 x10^3/uL (0.0-0.7) Basophils # (Auto) 0.1 x10^3/uL (0.0-0.2) Medications Active Scripts Medications Dose Route/Sig Max Daily Dose Days Date Category Dose Instructions Atorvastatin Calcium 80 Mg Tablet 80 Mg PO HS 11/01/18 Reported Cardizem Tablet (Diltiazem Hcl) 30 Mg Tablet 30 Mg PO HS PRN 10/26/18 Reported Enema Ready To Use (Na Phos,M-B/Na Phos,Di-Ba) 133 Ml Enema 133 Ml RC 01/30/17 Reported Acetaminophen 500 Mg Tablet 1 Tab PO Q6HRS 01/30/17 Reported Probiotic Plus & Cranberry Cap (Cran/C/B.coag/Fos/L.acid/L.rha) 1 Each Capsule 1 Each PO BID 01/30/17 Reported Azithromycin Tablet (Azithromycin) 250 Mg Tablet 250 Mg PO DAILY 01/30/17 Reported Estradiol Transdermal Patch (Estradiol) 1 Each Patch.tdwk 1 Each TD BID WEEKLY 01/30/17 Reported Next dose 06/30/17 Karishma (Norethindrone) 0.35 Mg Tablet 0.35 Mg PO DAILY 01/30/17 Reported Keppra (Levetiracetam) 500 Mg Tablet 750 Mg PO BID 01/30/17 Reported Cardizem Tablet (Diltiazem Hcl) 60 Mg Tablet 60 Mg PO DAILY16 06/12/15 Reported Metoprolol Tartrate 25 Mg Tablet 1 Tab PO BID 12/28/14 Reported Xopenex (Levalbuterol Hcl) 0.63 Mg/3 Ml Vial.neb 1 Vial NEB TID 12/27/14 Reported Valium (Diazepam) 2 Mg Tablet 2 Mg PO TID 10/11/13 Reported Transderm-Scop (Scopolamine) 1 Each Patch.td72 1 Each TD Q3DAYS 07/28/13 Reported Indication: secretions Next dose: 06/30/17 am Nystop (Nystatin) 60 Gm Powder 60 Gm TP PRN 07/28/13 Reported Indication: rash NExt dose: as needed Levalbuterol Hcl 0.63 Mg/3 Ml Vial.neb 0.63 Mg IH TID 07/28/13 Reported Spiriva (Tiotropium Washburn) 18 Mcg Cap.w.dev 18 Mcg IH DAILY 07/28/13 Reported Diltiazem Hcl Tablet (Diltiazem Hcl) 60 Mg Tablet 60 Mg PO DAILY07 07/28/13 Reported Provigil (Modafinil) 200 Mg Tablet 200 Mg PO DAILY 07/28/13 Reported Paxil (Paroxetine Hcl) 10 Mg/5 Ml Oral.susp 10 Mg PO DAILY 07/28/13 Reported Baclofen 10 Mg Tablet 10 Mg PO TID 07/28/13 Reported Active Scripts Medications Dose Route/Sig Max Daily Dose Days Date Category Dose Instructions Atorvastatin Calcium 80 Mg Tablet 80 Mg PO HS 11/01/18 Reported Cardizem Tablet (Diltiazem Hcl) 30 Mg Tablet 30 Mg PO HS PRN 10/26/18 Reported Enema Ready To Use (Na Phos,M-B/Na Phos,Di-Ba) 133 Ml Enema 133 Ml RC 01/30/17 Reported Acetaminophen 500 Mg Tablet 1 Tab PO Q6HRS 01/30/17 Reported Probiotic Plus & Cranberry Cap (Cran/C/B.coag/Fos/L.acid/L.rha) 1 Each Capsule 1 Each PO BID 01/30/17 Reported Azithromycin Tablet (Azithromycin) 250 Mg Tablet 250 Mg PO DAILY 01/30/17 Reported Estradiol Transdermal Patch (Estradiol) 1 Each Patch.tdwk 1 Each TD BID WEEKLY 01/30/17 Reported Next dose 06/30/17 Karishma (Norethindrone) 0.35 Mg Tablet 0.35 Mg PO DAILY 01/30/17 Reported Keppra (Levetiracetam) 500 Mg Tablet 750 Mg PO BID 01/30/17 Reported Cardizem Tablet (Diltiazem Hcl) 60 Mg Tablet 60 Mg PO DAILY16 06/12/15 Reported Metoprolol Tartrate 25 Mg Tablet 1 Tab PO BID 12/28/14 Reported Xopenex (Levalbuterol Hcl) 0.63 Mg/3 Ml Vial.neb 1 Vial NEB TID 12/27/14 Reported Valium (Diazepam) 2 Mg Tablet 2 Mg PO TID 10/11/13 Reported Transderm-Scop (Scopolamine) 1 Each Patch.td72 1 Each TD Q3DAYS 07/28/13 Reported Indication: secretions Next dose: 06/30/17 am Nystop (Nystatin) 60 Gm Powder 60 Gm TP PRN 07/28/13 Reported Indication: rash NExt dose: as needed Levalbuterol Hcl 0.63 Mg/3 Ml Vial.neb 0.63 Mg IH TID 07/28/13 Reported Spiriva (Tiotropium Washburn) 18 Mcg Cap.w.dev 18 Mcg IH DAILY 07/28/13 Reported Diltiazem Hcl Tablet (Diltiazem Hcl) 60 Mg Tablet 60 Mg PO DAILY07 07/28/13 Reported Provigil (Modafinil) 200 Mg Tablet 200 Mg PO DAILY 07/28/13 Reported Paxil (Paroxetine Hcl) 10 Mg/5 Ml Oral.susp 10 Mg PO DAILY 07/28/13 Reported Baclofen 10 Mg Tablet 10 Mg PO TID 07/28/13 Reported Active Scripts Medications Dose Route/Sig Max Daily Dose Days Date Category Dose Instructions Cardizem Tablet (Diltiazem Hcl) 30 Mg Tablet 30 Mg PO HS PRN 10/26/18 Reported Enema Ready To Use (Na Phos,M-B/Na Phos,Di-Ba) 133 Ml Enema 133 Ml RC 01/30/17 Reported Acetaminophen 500 Mg Tablet 1 Tab PO Q6HRS 01/30/17 Reported Probiotic Plus & Cranberry Cap (Cran/C/B.coag/Fos/L.acid/L.rha) 1 Each Capsule 1 Each PO BID 01/30/17 Reported Azithromycin Tablet (Azithromycin) 250 Mg Tablet 250 Mg PO DAILY 01/30/17 Reported Estradiol Transdermal Patch (Estradiol) 1 Each Patch.tdwk 1 Each TD BID WEEKLY 01/30/17 Reported Next dose 06/30/17 Karishma (Norethindrone) 0.35 Mg Tablet 0.35 Mg PO DAILY 01/30/17 Reported Keppra (Levetiracetam) 500 Mg Tablet 750 Mg PO BID 01/30/17 Reported Cardizem Tablet (Diltiazem Hcl) 60 Mg Tablet 60 Mg PO DAILY16 06/12/15 Reported Metoprolol Tartrate 25 Mg Tablet 1 Tab PO BID 12/28/14 Reported Xopenex (Levalbuterol Hcl) 0.63 Mg/3 Ml Vial.neb 1 Vial NEB TID 12/27/14 Reported Valium (Diazepam) 2 Mg Tablet 2 Mg PO TID 10/11/13 Reported Transderm-Scop (Scopolamine) 1 Each Patch.td72 1 Each TD Q3DAYS 07/28/13 Reported Indication: secretions Next dose: 06/30/17 am Nystop (Nystatin) 60 Gm Powder 60 Gm TP PRN 07/28/13 Reported Indication: rash NExt dose: as needed Levalbuterol Hcl 0.63 Mg/3 Ml Vial.neb 0.63 Mg IH TID 07/28/13 Reported Spiriva (Tiotropium Washburn) 18 Mcg Cap.w.dev 18 Mcg IH DAILY 07/28/13 Reported Diltiazem Hcl Tablet (Diltiazem Hcl) 60 Mg Tablet 60 Mg PO DAILY07 07/28/13 Reported Provigil (Modafinil) 200 Mg Tablet 200 Mg PO DAILY 07/28/13 Reported Paxil (Paroxetine Hcl) 10 Mg/5 Ml Oral.susp 10 Mg PO DAILY 07/28/13 Reported Baclofen 10 Mg Tablet 10 Mg PO TID 07/28/13 Reported Comments URINE CULTURE Final Final report URINE CULTURE RES 1 Final Comment Pseudomonas aeruginosa Greater than 100,000 colony forming units per mL URINE CULTURE RES 2 Final Enterococcus faecalis 25,000-50,000 colony forming units per mL ANTIMICROBIAL SUSCEPTIBILITY Final Comment S = Susceptible; I = Intermediate; R = Resistant P = Positive; N = Negative MICS are expressed in micrograms per mL Antibiotic RSLT#1 RSLT#2 RSLT#3 RSLT#4 Amikacin S =16 Cefepime I =16 Ceftazidime S =4 Ciprofloxacin R>=4 R>=8 Gentamicin I =8 Imipenem S =4 Levofloxacin R>=8 R>=8 Meropenem S =1 Nitrofurantoin S<=16 Penicillin R =16 Piperacillin S =32 Tetracycline R>=16 Ticarcillin R>=128 Tobramycin S<=1 Vancomycin S =1 Performed at: [facility], [place], [place] [id number] Part Time Flexible Clerk: RELL Marques MD, Phone: [phone] RUN DATE: 10/30/18 PAGE 1 RUN TIME: 1510 [facility] [address] [place] [address] Judson Roy M.D., Inspector And Tester PATIENT: MINNIE BENZ ACCT: [id number] LOC: 1 [facility] U: [id number] AGE/SX: 68/F ROOM: 112 RE10/25/[address]: RIGOBERTO VORA III, DO : 1950 BED: 1 DIS: STATUS: ADM IN TLOC: SPEC #: [id number] ALVARO: 10/27/18 STATUS: RES REQ #: [id number] RECD: 10/27/[address]: DARWIN PITTS MD SOURCE: [facility] SITE ENTR: 10/27/18 [facility] DR: ANIKET LUNA MD SPDESC: RIGOBERTO VORA III, AMAN U MD KURTZ,BEVERLY BRAVO MD, MD ORDERED: NGA/JONHY/JEANINE Procedure Result ANAEROBIC-AEROBIC CULTURE PENDING ANAEROBIC RES 1 PENDING AEROBIC CULT Final Final report AEROBIC RES 1 Final Comment Pseudomonas aeruginosa 1+ ANTIMICROBIAL SUSCEPTIBILITY Final Comment S = Susceptible; I = Intermediate; R = Resistant P = Positive; N = Negative MICS are expressed in micrograms per mL Antibiotic RSLT#1 RSLT#2 RSLT#3 RSLT#4 Amikacin S<=2 Cefepime R>=64 Ceftazidime R>=64 Ciprofloxacin R>=4 Gentamicin S<=1 Imipenem I =8 Levofloxacin R>=8 Meropenem S =4 Piperacillin R>=128 Ticarcillin R>=128 Tobramycin S<=1 Impression . Acute on chronic hypercapnic and hypoxic respiratory failure Advanced Multiple sclerosis Sepsis improved UTI Trach site infection Recurrent effusion so far all cultures negative Plan . Acute on chronic hypercapnic and hypoxic respiratory failure ongoing/improved * multifactorial etiologies including sepsis, effusions * continue trilogy at NOC and PRN * Trilogy settings for Discharge as follows AVAPS, 14,400-500 per comfort,I-time 0.9, PEEP 4 * oxygen 3-5 liters continuously * family training on trilogy use for D/C * nebs/prn suctioning Pleural effusions * S/P s/p right repeat right thoracentesis 11/04, * follow CXR Sepsis:improved * UTI w/ PSA and Enterococcus PCN-R * chronic supra-pubic cath changed last on 11/04 * afebrile * completed full course abx. * trach site culture positive PSA and blood cultures positive gram + cocci MRSE Advanced Multiple sclerosis: ongoing * supportive care * cont. TF discussed with RN Plan to discharge home with social work assisting with Discharge. CHRISTOPHER JAMISON MD Nov 09, 2018 11:48
--- NOTE | 2018-11-09 14:15 | NUR ---
SS following up with discharge planning. SS phoned and faxed signed paperwork from [facility] and oxygen order to [facility] at [phone]; fax [phone]. SS spoke with pt's spouse, Maximino, and discussed home healthcare. Maximino requested that if possible he would like [facility], ; fax [phone] but if [facility] does not have an RT then he would like [facility], ; fax [phone]. SS phoned and faxed referral to [facility] and was notified that they do not have RT services. SS phoned and faxed referral to [facility] and was notified that they do have RT services.
--- NOTE | 2018-11-09 16:12 | NUR ---
SS following up with discharge planning. SS met with pt, pt's family, and [facility] from [facility]. [facility] still training family at this time. [facility] reported that they needed to meet family at home at discharge and could not be there until the am on 11/10/2018. Appointment was set up for [facility] to be at pt's home at 0930 on 11/10/2018. [facility] scheduled to transport pt to home at 0900 on 11/10/2018 with [facility] and [facility]. Pt's family and [facility] requesting script for 1000ml bottles of sterile water 12 per month and 15ml saline vials 48 per month for post trach care. Dr. Pastor notified of request for script. Ambulance form placed on chart. Pt will discharge to home on 11/10/2018 at 0900 via [facility] ambulance. Pt, pt's family, and pt's RN notified.
--- NOTE | 2018-11-09 17:53 | NUR ---
discharge from hospital scheduled for 9am 11/10/18. given prescription for ASA 81mg 1 tab daily due to pt discharging in the morning and will be at the home waiting for pt arrival. Will continue to monitor.
[2018-11-09] MEDS: ATORVASTATIN CALCIUM 40 MG TABLET. PO SCH (20:52)
[2018-11-10] VITALS (9 sets, daily range): BP systolic 101–128; BP diastolic 52–73
[2018-11-10 05:54] LABS: BASO # 0.1 x10^3/uL (0.0-0.2); BASO % 1 % (0-3); EOS # 0.3 x10^3/uL (0.0-0.7); EOS % 7 % (0-3); HEMATOCRIT 32.5 % (36.0-47.0); HEMOGLOBIN 10.5 g/dL (12.0-15.5); LYMPH % 20 % (24-48); MEAN CORPUSCULAR HEMOGLOBIN 30 pg (25-35); MEAN CORPUSCULAR HGB CONC 32 g/dL (31-37); MEAN CORPUSCULAR VOLUME 93 fL (79-100); MONO # 0.4 x10^3/uL (0.0-1.1); MONO % 8 % (0-9); NEUT # 3.2 x10^3uL (1.8-7.7); NEUT % 65 % (31-73); PLATELET COUNT 360 x10^3/uL (140-400); RED BLOOD COUNT 3.51 x10^6/uL (3.50-5.40); RED CELL DISTRIBUTION WIDTH 15.2 % (11.5-14.5)
[2018-11-10] MEDS: dilTIAZem HCL 30 MG TABLET PO SCH (07:00)
[2018-11-10] MEDS: IPRATRPIUM/ALBUTEROL 0.5/2.5MG 3 ML NEBU. NEB SCH (07:57)
[2018-11-10] MEDS: BUDESONIDE 0.5 MG/2 ML NEBU. NEB SCH (07:57)
[2018-11-10] MEDS: ASPIRIN CHEWABLE 81 MG TABLET. PO SCH (08:00)
[2018-11-10] MEDS: diazePAM 2 MG TABLET PO SCH (08:49)
[2018-11-10] MEDS: levETIRAcetam 250 MG TABLET PO SCH (08:49)
[2018-11-10] MEDS: BACLOFEN 10 MG TABLET. PO SCH (08:49)
[2018-11-10] MEDS: METOPROLOL TART IMMED RELEASE 25 MG TABLET. PO SCH (08:49)
[2018-11-10] MEDS: PARoxetine 10 MG TABLET PO SCH (08:49)
[2018-11-10] MEDS: NYSTATIN TOPICAL POWDER 15GM BOTTLE. TP SCH (08:50)
--- NOTE | 2018-11-10 10:55 | PDOC ---
PULMONARY PROGRESS NOTES Subjective remained on trilogy overnight with some asynchrony, currently on t-sheild. Nursing reports reduced secretions no fevers or concerns from nursing staff. Plant o D/C home today on trilogy. Vitals Vital Signs Date Time Temp Pulse Resp B/P (MAP) Pulse Ox O2 Delivery O2 Flow Rate FiO2 11/10/18 08:49 86 128/60 11/10/18 08:01 96 Tracheal Collar 4.0 11/10/18 07:00 98.5 98.5 11/10/18 06:00 14 Comments Pt. is non-verbal on exam, unable to obtain 2/2 trach General: No acute distress HEENT: Other (nc at perrl nose throat clear, neck, trach site ok no lad, no thyromegaly) Lungs: Other (decrease bs) Cardiovascular: S1, S2 Abdomen: Soft, Non-tender, Other (peg tube in palce ) Neuro Exam: Alert Extremities: No Edema, Other (edema +1 BLE) Skin: Warm, Dry Labs Laboratory Tests Test 11/09/18 06:00 11/10/18 05:25 White Blood Count 5.6 x10^3/uL (4.0-11.0) 5.0 x10^3/uL (4.0-11.0) Red Blood Count 3.59 x10^6/uL (3.50-5.40) 3.51 x10^6/uL (3.50-5.40) Hemoglobin 11.1 g/dL (12.0-15.5) 10.5 g/dL (12.0-15.5) Hematocrit 33.3 % (36.0-47.0) 32.5 % (36.0-47.0) Mean Corpuscular Volume 93 fL (79-100) 93 fL (79-100) Mean Corpuscular Hemoglobin 31 pg (25-35) 30 pg (25-35) Mean Corpuscular Hemoglobin Concent 34 g/dL (31-37) 32 g/dL (31-37) Red Cell Distribution Width 15.6 % (11.5-14.5) 15.2 % (11.5-14.5) Platelet Count 379 x10^3/uL (140-400) 360 x10^3/uL (140-400) Neutrophils (%) (Auto) 74 % (31-73) 65 % (31-73) Lymphocytes (%) (Auto) 13 % (24-48) 20 % (24-48) Monocytes (%) (Auto) 7 % (0-9) 8 % (0-9) Eosinophils (%) (Auto) 5 % (0-3) 7 % (0-3) Basophils (%) (Auto) 1 % (0-3) 1 % (0-3) Neutrophils # (Auto) 4.2 x10^3uL (1.8-7.7) 3.2 x10^3uL (1.8-7.7) Lymphocytes # (Auto) 0.7 x10^3/uL (1.0-4.8) 1.0 x10^3/uL (1.0-4.8) Monocytes # (Auto) 0.4 x10^3/uL (0.0-1.1) 0.4 x10^3/uL (0.0-1.1) Eosinophils # (Auto) 0.3 x10^3/uL (0.0-0.7) 0.3 x10^3/uL (0.0-0.7) Basophils # (Auto) 0.1 x10^3/uL (0.0-0.2) 0.1 x10^3/uL (0.0-0.2) Laboratory Tests Test 11/10/18 05:25 White Blood Count 5.0 x10^3/uL (4.0-11.0) Red Blood Count 3.51 x10^6/uL (3.50-5.40) Hemoglobin 10.5 g/dL (12.0-15.5) Hematocrit 32.5 % (36.0-47.0) Mean Corpuscular Volume 93 fL (79-100) Mean Corpuscular Hemoglobin 30 pg (25-35) Mean Corpuscular Hemoglobin Concent 32 g/dL (31-37) Red Cell Distribution Width 15.2 % (11.5-14.5) Platelet Count 360 x10^3/uL (140-400) Neutrophils (%) (Auto) 65 % (31-73) Lymphocytes (%) (Auto) 20 % (24-48) Monocytes (%) (Auto) 8 % (0-9) Eosinophils (%) (Auto) 7 % (0-3) Basophils (%) (Auto) 1 % (0-3) Neutrophils # (Auto) 3.2 x10^3uL (1.8-7.7) Lymphocytes # (Auto) 1.0 x10^3/uL (1.0-4.8) Monocytes # (Auto) 0.4 x10^3/uL (0.0-1.1) Eosinophils # (Auto) 0.3 x10^3/uL (0.0-0.7) Basophils # (Auto) 0.1 x10^3/uL (0.0-0.2) Medications Active Scripts Medications Dose Route/Sig Max Daily Dose Days Date Category Dose Instructions Atorvastatin Calcium 80 Mg Tablet 80 Mg PO HS 11/01/18 Reported Cardizem Tablet (Diltiazem Hcl) 30 Mg Tablet 30 Mg PO HS PRN 10/26/18 Reported Enema Ready To Use (Na Phos,M-B/Na Phos,Di-Ba) 133 Ml Enema 133 Ml RC 01/30/17 Reported Acetaminophen 500 Mg Tablet 1 Tab PO Q6HRS 01/30/17 Reported Probiotic Plus & Cranberry Cap (Cran/C/B.coag/Fos/L.acid/L.rha) 1 Each Capsule 1 Each PO BID 01/30/17 Reported Azithromycin Tablet (Azithromycin) 250 Mg Tablet 250 Mg PO DAILY 01/30/17 Reported Estradiol Transdermal Patch (Estradiol) 1 Each Patch.tdwk 1 Each TD BID WEEKLY 01/30/17 Reported Next dose 06/30/17 Karishma (Norethindrone) 0.35 Mg Tablet 0.35 Mg PO DAILY 01/30/17 Reported Keppra (Levetiracetam) 500 Mg Tablet 750 Mg PO BID 01/30/17 Reported Cardizem Tablet (Diltiazem Hcl) 60 Mg Tablet 60 Mg PO DAILY16 06/12/15 Reported Metoprolol Tartrate 25 Mg Tablet 1 Tab PO BID 12/28/14 Reported Xopenex (Levalbuterol Hcl) 0.63 Mg/3 Ml Vial.neb 1 Vial NEB TID 12/27/14 Reported Valium (Diazepam) 2 Mg Tablet 2 Mg PO TID 10/11/13 Reported Transderm-Scop (Scopolamine) 1 Each Patch.td72 1 Each TD Q3DAYS 07/28/13 Reported Indication: secretions Next dose: 06/30/17 am Nystop (Nystatin) 60 Gm Powder 60 Gm TP PRN 07/28/13 Reported Indication: rash NExt dose: as needed Levalbuterol Hcl 0.63 Mg/3 Ml Vial.neb 0.63 Mg IH TID 07/28/13 Reported Spiriva (Tiotropium [place]) 18 Mcg Cap.w.dev 18 Mcg IH DAILY 07/28/13 Reported Diltiazem Hcl Tablet (Diltiazem Hcl) 60 Mg Tablet 60 Mg PO DAILY07 07/28/13 Reported Provigil (Modafinil) 200 Mg Tablet 200 Mg PO DAILY 07/28/13 Reported Paxil (Paroxetine Hcl) 10 Mg/5 Ml Oral.susp 10 Mg PO DAILY 07/28/13 Reported Baclofen 10 Mg Tablet 10 Mg PO TID 07/28/13 Reported Active Scripts Medications Dose Route/Sig Max Daily Dose Days Date Category Dose Instructions Atorvastatin Calcium 80 Mg Tablet 80 Mg PO HS 11/01/18 Reported Cardizem Tablet (Diltiazem Hcl) 30 Mg Tablet 30 Mg PO HS PRN 10/26/18 Reported Enema Ready To Use (Na Phos,M-B/Na Phos,Di-Ba) 133 Ml Enema 133 Ml RC 01/30/17 Reported Acetaminophen 500 Mg Tablet 1 Tab PO Q6HRS 01/30/17 Reported Probiotic Plus & Cranberry Cap (Cran/C/B.coag/Fos/L.acid/L.rha) 1 Each Capsule 1 Each PO BID 01/30/17 Reported Azithromycin Tablet (Azithromycin) 250 Mg Tablet 250 Mg PO DAILY 01/30/17 Reported Estradiol Transdermal Patch (Estradiol) 1 Each Patch.tdwk 1 Each TD BID WEEKLY 01/30/17 Reported Next dose 06/30/17 Karishma (Norethindrone) 0.35 Mg Tablet 0.35 Mg PO DAILY 01/30/17 Reported Keppra (Levetiracetam) 500 Mg Tablet 750 Mg PO BID 01/30/17 Reported Cardizem Tablet (Diltiazem Hcl) 60 Mg Tablet 60 Mg PO DAILY16 06/12/15 Reported Metoprolol Tartrate 25 Mg Tablet 1 Tab PO BID 12/28/14 Reported Xopenex (Levalbuterol Hcl) 0.63 Mg/3 Ml Vial.neb 1 Vial NEB TID 12/27/14 Reported Valium (Diazepam) 2 Mg Tablet 2 Mg PO TID 10/11/13 Reported Transderm-Scop (Scopolamine) 1 Each Patch.td72 1 Each TD Q3DAYS 07/28/13 Reported Indication: secretions Next dose: 06/30/17 am Nystop (Nystatin) 60 Gm Powder 60 Gm TP PRN 07/28/13 Reported Indication: rash NExt dose: as needed Levalbuterol Hcl 0.63 Mg/3 Ml Vial.neb 0.63 Mg IH TID 07/28/13 Reported Spiriva (Tiotropium [place]) 18 Mcg Cap.w.dev 18 Mcg IH DAILY 07/28/13 Reported Diltiazem Hcl Tablet (Diltiazem Hcl) 60 Mg Tablet 60 Mg PO DAILY07 07/28/13 Reported Provigil (Modafinil) 200 Mg Tablet 200 Mg PO DAILY 07/28/13 Reported Paxil (Paroxetine Hcl) 10 Mg/5 Ml Oral.susp 10 Mg PO DAILY 07/28/13 Reported Baclofen 10 Mg Tablet 10 Mg PO TID 07/28/13 Reported Active Scripts Medications Dose Route/Sig Max Daily Dose Days Date Category Dose Instructions Cardizem Tablet (Diltiazem Hcl) 30 Mg Tablet 30 Mg PO HS PRN 10/26/18 Reported Enema Ready To Use (Na Phos,M-B/Na Phos,Di-Ba) 133 Ml Enema 133 Ml RC 01/30/17 Reported Acetaminophen 500 Mg Tablet 1 Tab PO Q6HRS 01/30/17 Reported Probiotic Plus & Cranberry Cap (Cran/C/B.coag/Fos/L.acid/L.rha) 1 Each Capsule 1 Each PO BID 01/30/17 Reported Azithromycin Tablet (Azithromycin) 250 Mg Tablet 250 Mg PO DAILY 01/30/17 Reported Estradiol Transdermal Patch (Estradiol) 1 Each Patch.tdwk 1 Each TD BID WEEKLY 01/30/17 Reported Next dose 06/30/17 Karishma (Norethindrone) 0.35 Mg Tablet 0.35 Mg PO DAILY 01/30/17 Reported Keppra (Levetiracetam) 500 Mg Tablet 750 Mg PO BID 01/30/17 Reported Cardizem Tablet (Diltiazem Hcl) 60 Mg Tablet 60 Mg PO DAILY16 06/12/15 Reported Metoprolol Tartrate 25 Mg Tablet 1 Tab PO BID 12/28/14 Reported Xopenex (Levalbuterol Hcl) 0.63 Mg/3 Ml Vial.neb 1 Vial NEB TID 12/27/14 Reported Valium (Diazepam) 2 Mg Tablet 2 Mg PO TID 10/11/13 Reported Transderm-Scop (Scopolamine) 1 Each Patch.td72 1 Each TD Q3DAYS 07/28/13 Reported Indication: secretions Next dose: 06/30/17 am Nystop (Nystatin) 60 Gm Powder 60 Gm TP PRN 07/28/13 Reported Indication: rash NExt dose: as needed Levalbuterol Hcl 0.63 Mg/3 Ml Vial.neb 0.63 Mg IH TID 07/28/13 Reported Spiriva (Tiotropium [place]) 18 Mcg Cap.w.dev 18 Mcg IH DAILY 07/28/13 Reported Diltiazem Hcl Tablet (Diltiazem Hcl) 60 Mg Tablet 60 Mg PO DAILY07 07/28/13 Reported Provigil (Modafinil) 200 Mg Tablet 200 Mg PO DAILY 07/28/13 Reported Paxil (Paroxetine Hcl) 10 Mg/5 Ml Oral.susp 10 Mg PO DAILY 07/28/13 Reported Baclofen 10 Mg Tablet 10 Mg PO TID 07/28/13 Reported Comments URINE CULTURE Final Final report URINE CULTURE RES 1 Final Comment Pseudomonas aeruginosa Greater than 100,000 colony forming units per mL URINE CULTURE RES 2 Final Enterococcus faecalis 25,000-50,000 colony forming units per mL ANTIMICROBIAL SUSCEPTIBILITY Final Comment S = Susceptible; I = Intermediate; R = Resistant P = Positive; N = Negative MICS are expressed in micrograms per mL Antibiotic RSLT#1 RSLT#2 RSLT#3 RSLT#4 Amikacin S =16 Cefepime I =16 Ceftazidime S =4 Ciprofloxacin R>=4 R>=8 Gentamicin I =8 Imipenem S =4 Levofloxacin R>=8 R>=8 Meropenem S =1 Nitrofurantoin S<=16 Penicillin R =16 Piperacillin S =32 Tetracycline R>=16 Ticarcillin R>=128 Tobramycin S<=1 Vancomycin S =1 Performed at: - [facility] [address] [place] [address] [address], [place], [place] [id number] [employer] Maker Helper: RELL Marques MD, Phone: [phone] --------- RUN DATE: 10/30/18 PAGE 1 RUN TIME: 0982 [facility] [address] [place] [address] Judson Roy M.D., Sprinkler Driver PATIENT: MINNIE BENZ ACCT: [id number] LOC: 1 [facility] U: [id number] AGE/SX: 68/F ROOM: 112 RE10/25/[address]: RIGOBERTO VORA III, DO : 1950 BED: 1 DIS: STATUS: ADM IN TLOC: SPEC #: [id number] ALVARO: 10/27/18 STATUS: RES REQ #: [id number] RECD: 10/27/[address]: DARWIN PITTS MD SOURCE: [facility] SITE ENTR: 10/27/[address] [facility] [address]: ANIKET LUNA MD SPDC: RIGOBERTO VORA III, AMAN U MD KURTZ,JESSICA FRASER,BEVERLY Jones MD ORDERED: ANAER/AEROB/GS Procedure Result ANAEROBIC-AEROBIC CULTURE PENDING ANAEROBIC RES 1 PENDING AEROBIC CULT Final Final report AEROBIC RES 1 Final Comment Pseudomonas aeruginosa 1+ ANTIMICROBIAL SUSCEPTIBILITY Final Comment S = Susceptible; I = Intermediate; R = Resistant P = Positive; N = Negative MICS are expressed in micrograms per mL Antibiotic RSLT#1 RSLT#2 RSLT#3 RSLT#4 Amikacin S<=2 Cefepime R>=64 Ceftazidime R>=64 Ciprofloxacin R>=4 Gentamicin S<=1 Imipenem I =8 Levofloxacin R>=8 Meropenem S =4 Piperacillin R>=128 Ticarcillin R>=128 Tobramycin S<=1 Impression . Acute on chronic hypercapnic and hypoxic respiratory failure Advanced Multiple sclerosis Sepsis improved UTI Trach site infection Recurrent effusion so far all cultures negative Plan . Acute on chronic hypercapnic and hypoxic respiratory failure ongoing/improved * multifactorial etiologies including sepsis, effusions * continue trilogy at NOC and PRN * Trilogy settings for Discharge as follows AVAPS, 14,400-500 per comfort,I-time 0.9, PEEP 4 * oxygen 3-5 liters continuously * family training on trilogy use for D/C * nebs/prn suctioning Pleural effusions * S/P s/p right repeat right thoracentesis 11/04, * follow CXR Sepsis:improved * UTI w/ PSA and Enterococcus PCN-R * chronic supra-pubic cath changed last on 11/04 * afebrile * completed full course abx. * trach site culture positive PSA and blood cultures positive gram + cocci MRSE Advanced Multiple sclerosis: ongoing * supportive care * cont. TF discussed with RN Plan to discharge home with social work assisting with Discharge. CHRISTOPHER JAMISON MD Nov 10, 2018 10:55
--- NOTE | 2018-11-10 11:09 | NUR ---
1000 Multiple suction prior to discharge. Intermittent spo2 drop.Bagged between trach suction w sats improved to 95-100 %. Home per EMS. Home health in w update on care and # for assist as needed if trouble shooting required. All am meds prior to discharge as well as home med in pharmacy returned to [facility]. No personal belongings /acquired hospital items home w family as well as scripts and discharge information. Transported per cart to ambulance for home transport w O@ia trach shield
== END 2018-11-10 10:00 | disposition home health service (06) | DRG 208 ==
LOC: ER 17:23 → 1 WEST ICU 20:08
PROVIDERS: ADMIT Internal Medicine; ATTEND Internal Medicine
PROC: 5A09357 Assistance with Respiratory Ventilation, Less than 24 Consecutive Hours, Continuous Positive Airway Pressure (ICD-10-PCS; 2018-10-25)
PROC: 02HV33Z Insertion of Infusion Device into Superior Vena Cava, Percutaneous Approach (ICD-10-PCS; principal; 2018-10-26)
PROC: 5A09357 Assistance with Respiratory Ventilation, Less than 24 Consecutive Hours, Continuous Positive Airway Pressure (ICD-10-PCS; 2018-10-26)
PROC: 5A1935Z Respiratory Ventilation, Less than 24 Consecutive Hours (ICD-10-PCS; 2018-10-26)
PROC: 0W993ZZ Drainage of Right Pleural Cavity, Percutaneous Approach (ICD-10-PCS; 2018-10-27)
PROC: 5A09357 Assistance with Respiratory Ventilation, Less than 24 Consecutive Hours, Continuous Positive Airway Pressure (ICD-10-PCS; 2018-10-27)
PROC: 5A1935Z Respiratory Ventilation, Less than 24 Consecutive Hours (ICD-10-PCS; 2018-10-27)
PROC: 0W9B3ZZ Drainage of Left Pleural Cavity, Percutaneous Approach (ICD-10-PCS; 2018-10-28)
PROC: 5A09357 Assistance with Respiratory Ventilation, Less than 24 Consecutive Hours, Continuous Positive Airway Pressure (ICD-10-PCS; 2018-10-28)
PROC: 5A1935Z Respiratory Ventilation, Less than 24 Consecutive Hours (ICD-10-PCS; 2018-10-28)
PROC: 5A09357 Assistance with Respiratory Ventilation, Less than 24 Consecutive Hours, Continuous Positive Airway Pressure (ICD-10-PCS; 2018-10-29)
PROC: 5A09357 Assistance with Respiratory Ventilation, Less than 24 Consecutive Hours, Continuous Positive Airway Pressure (ICD-10-PCS; 2018-10-30)
PROC: 5A09357 Assistance with Respiratory Ventilation, Less than 24 Consecutive Hours, Continuous Positive Airway Pressure (ICD-10-PCS; 2018-10-31)
PROC: 5A09357 Assistance with Respiratory Ventilation, Less than 24 Consecutive Hours, Continuous Positive Airway Pressure (ICD-10-PCS; 2018-11-01)
PROC: 5A09457 Assistance with Respiratory Ventilation, 24-96 Consecutive Hours, Continuous Positive Airway Pressure (ICD-10-PCS; 2018-11-01)
PROC: 5A1935Z Respiratory Ventilation, Less than 24 Consecutive Hours (ICD-10-PCS; 2018-11-01)
PROC: 5A09357 Assistance with Respiratory Ventilation, Less than 24 Consecutive Hours, Continuous Positive Airway Pressure (ICD-10-PCS; 2018-11-02)
PROC: 5A1935Z Respiratory Ventilation, Less than 24 Consecutive Hours (ICD-10-PCS; 2018-11-02)
PROC: 5A09357 Assistance with Respiratory Ventilation, Less than 24 Consecutive Hours, Continuous Positive Airway Pressure (ICD-10-PCS; 2018-11-03)
PROC: 0W993ZZ Drainage of Right Pleural Cavity, Percutaneous Approach (ICD-10-PCS; 2018-11-04)
PROC: 5A09357 Assistance with Respiratory Ventilation, Less than 24 Consecutive Hours, Continuous Positive Airway Pressure (ICD-10-PCS; 2018-11-04)
PROC: 5A09357 Assistance with Respiratory Ventilation, Less than 24 Consecutive Hours, Continuous Positive Airway Pressure (ICD-10-PCS; 2018-11-05)
PROC: 5A1935Z Respiratory Ventilation, Less than 24 Consecutive Hours (ICD-10-PCS; 2018-11-06)
PROC: 5A09357 Assistance with Respiratory Ventilation, Less than 24 Consecutive Hours, Continuous Positive Airway Pressure (ICD-10-PCS; 2018-11-07)
PROC: 5A1935Z Respiratory Ventilation, Less than 24 Consecutive Hours (ICD-10-PCS; 2018-11-07)
PROC: 5A1935Z Respiratory Ventilation, Less than 24 Consecutive Hours (ICD-10-PCS; 2018-11-08)
PROC: 5A09357 Assistance with Respiratory Ventilation, Less than 24 Consecutive Hours, Continuous Positive Airway Pressure (ICD-10-PCS; 2018-11-09)
PROC: 5A1935Z Respiratory Ventilation, Less than 24 Consecutive Hours (ICD-10-PCS; 2018-11-09)
PROC: 5A09357 Assistance with Respiratory Ventilation, Less than 24 Consecutive Hours, Continuous Positive Airway Pressure (ICD-10-PCS; 2018-11-10)
PROC: 5A1935Z Respiratory Ventilation, Less than 24 Consecutive Hours (ICD-10-PCS; 2018-11-10)
DX: J95.02 Infection of tracheostomy stoma (principal); A41.9 Sepsis, unspecified organism; J96.21 Acute and chronic respiratory failure with hypoxia; J96.22 Acute and chronic respiratory failure with hypercapnia; J18.9 Pneumonia, unspecified organism; N39.0 Urinary tract infection, site not specified; J90 Pleural effusion, not elsewhere classified; F41.9 Anxiety disorder, unspecified; M19.90 Unspecified osteoarthritis, unspecified site; F03.90 Unspecified dementia, unspecified severity, without behavioral disturbance, psychotic disturbance, mood disturbance, and anxiety; G35 Multiple sclerosis; G40.909 Epilepsy, unspecified, not intractable, without status epilepticus; I48.91 Unspecified atrial fibrillation; L89.90 Pressure ulcer of unspecified site, unspecified stage; I10 Essential (primary) hypertension; W18.39XA Other fall on same level, initial encounter; K21.9 Gastro-esophageal reflux disease without esophagitis; Z96.89 Presence of other specified functional implants; Z93.3 Colostomy status; Z90.5 Acquired absence of kidney; Z86.14 Personal history of Methicillin resistant Staphylococcus aureus infection; Z82.49 Family history of ischemic heart disease and other diseases of the circulatory system; Z79.899 Other long term (current) drug therapy; Y93.89 Activity, other specified; Y92.89 Other specified places as the place of occurrence of the external cause; Y99.8 Other external cause status
CPT/HCPCS: 32555; 36415; 36569; 36600; 71045; 71250; 74018; 80048; 80053; 80202; 81001; 82565; 82805; 82945; 83605; 83615; 83880; 83986; 84157; 84484; 85025; 85610; 85730; 87040; 87070; 87071; 87075; 87077; 87086; 87186; 87205; 87641; 93005; 93306; 94003; 94150; 94640; 94660; 94760; 96361; 96374; 99291; J0360; J0692; J0696; J1650; J1940; J2185; J2543; J2930; J3370; J7030; J7040; J7050; J7620; J7626

== ENCOUNTER 2019-01-18 13:41 | Emergency (ER) | payer MEDICARE, BC ==
[~2019-01-18] VITALS: Ht 167.6 cm; Wt 70.3 kg
[~2019-01-18 13:41] MED LIST changes: +ATORVASTATIN CA80 MG PO; +DILT30TA26 PO
--- NOTE | 2019-01-18 14:15 | PHYS DOC ---
Past Medical History Past Medical History: Hypertension, Other Additional Past Medical Histor: MS, respiratory failure, tracheostomy, excess secretions, possible seizures Past Surgical History: Other Additional Past Surgical Histo: feeding tube,baclofen pump,flap surgeries,tracheostomy,COLOSTOMY, 1 kidney, Alcohol Use: None Drug Use: None Adult General Chief Complaint Chief Complaint: OTHER COMPLAINTS HPI HPI Patient is a 68-year-old female, who unfortunately has a history of multiple sclerosis and she is bedbound, who presents to the emergency department after dislodgment of a feeding tube at home. She has no other complaints and has had a feeding tube in place for quite a while. She has not had any vomiting or fevers or difficulty breathing. She does have a tracheostomy with a trach collar. Review of Systems Review of Systems Constitutional: Denies fever or chills [] Respiratory: Denies cough or shortness of breath [] GI: Denies abdominal pain, nausea, vomiting, bloody stools or diarrhea [] : Denies dysuria or hematuria [] Neurologic: Denies headache, new focal weakness or sensory changes [] Allergies Allergies Allergies Coded Allergies Type Severity Reaction Last Updated Verified I S O L A T I O N *CONTACT* Allergy Unknown 11/02/18 Yes No Known Medication Allergies Allergy Unknown 11/02/18 Yes Physical Exam Physical Exam PHYSICAL EXAM: CONSTITUTIONAL: Well developed, well nourished HEAD: normocephalic, atraumatic EENT: PERRL, EOMI. Conjunctivae normal color, sclerae non-icteric; moist mucous membranes. NECK: Supple, non-tender; no meningismus. LUNGS: Lungs CTA, breathing even and unlabored. Normal air movement. HEART: Regular rate and rhythm, no murmur CHEST: No deformity; non-tender ABDOMEN: The abdomen is soft, and non-tender, no masses or bruits. There is a G- tube tract in the left upper abdomen. Also present in her suprapubic catheter, and a colostomy. EXTREM: Normal ROM; no deformity, no calf tenderness. Normal pulses palpable in all extremities. There is bilateral pedal edema. SKIN: No rash; no diaphoresis NEURO: Patient is alert, interactive, does not have significant movement of her extremities �4. EKG EKG [] Radiology/Procedures Radiology/Procedures [] Course & Med Decision Making Course & Med Decision Making G TUBE PLACEMENT PROCEDURE NOTE: The abdominal wall was prepped, and a 20 Czech G-tube was replaced without difficulty into the existing tract, gastric contents were aspirated, patient tolerated the procedure well. Dragon Disclaimer Dragon Disclaimer This electronic medical record was generated, in whole or in part, using a voice recognition dictation system. Departure Departure Impression: Primary Impression: Gastrostomy tube dysfunction Additional Impression: Multiple sclerosis Disposition: 01 HOME, SELF-CARE Condition: STABLE Referrals: JESSICA PAINTING MD (PCP) Patient Instructions: Gastrostomy Tube, Adult Problem Qualifiers JENNIFER YANES MD Jan 18, 2019 14:15
[2019-01-18 14:45] VITALS: BP 138/62
== END 2019-01-18 18:30 | disposition home or self-care (01) ==
LOC: ER 13:41
DX: K94.23 Gastrostomy malfunction (principal); G35 Multiple sclerosis; I10 Essential (primary) hypertension; Z91.041 Radiographic dye allergy status; Y83.8 Other surgical procedures as the cause of abnormal reaction of the patient, or of later complication, without mention of misadventure at the time of the procedure
CPT/HCPCS: 43762; 99284

== ENCOUNTER 2019-02-23 15:25 | Inpatient (IN) | payer MEDICARE, BC ==
[~2019-02-23] VITALS: Ht 160 cm; Wt 67.6 kg
[2019-02-23] VITALS (8 sets, daily range): BP systolic 95–151; BP diastolic 54–80
[2019-02-23] MEDS ORDERED: BUPIVACAINE MPF 0.5% 30 ML VIAL. ONE (15:30)
[2019-02-23] MEDS ORDERED: SURGICEL FIBRILLAR 1X2 EACH. ONE (15:34)
[2019-02-23] MEDS ORDERED: GLYCOPYRROLATE 1 MG/5 ML VIAL. ONE (16:23)
[2019-02-23] MEDS ORDERED: NEOSTIGMINE METHYLSULFATE 5 MG/5 ML SYRINGE. ONE (16:23)
[2019-02-23] MEDS ORDERED: ROCURONIUM 50 MG/5 ML VIAL. ONE (16:23)
[2019-02-23] MEDS ORDERED: fentaNYL PF VIAL 100 MCG/2 ML VIAL ONE (16:23)
[2019-02-23] MEDS ORDERED: ONDANSETRON PF 4 MG/2 ML VIAL. ONE ×2 (16:24)
[2019-02-23] MEDS ORDERED: DEXAMETHASONE SOD PHOS 4 MG/ML VIAL ONE (16:24)
[2019-02-23] MEDS ORDERED: PROPOFOL 20 ML IV ONE (16:24)
--- NOTE | 2019-02-23 16:25 | PHYS DOC ---
Past Medical History Past Medical History: Hypertension, Other Additional Past Medical Histor: MS, respiratory failure, tracheostomy, excess secretions, possible seizures Past Surgical History: Other Additional Past Surgical Histo: feeding tube,baclofen pump,flap surgeries,tracheostomy,COLOSTOMY, 1 kidney, Alcohol Use: None Drug Use: None Adult General Chief Complaint Chief Complaint: trach displaced HPI HPI 68-year-old female presenting to the emergency department today after being clinic with pulmonary, Dr. Collins was changing the patient's tracheostomy when he was unable to advance the tracheostomy tube into position given the stenosis of the ostomy. He tried a few times and was unable to get it, so he had her come to the emergency department for general surgery to place the tracheostomy tube. The patient is breathing comfortably and does not have any pain. Onset today. Location tracheostomy site. No alleviating or exacerbating factors. Review of systems is negative for chest pain shortness of breath abdominal pain nausea vomiting. All other review of systems is negative. ED course: 68-year-old female presenting to the emergency department today after Dr. Collins was unable to change the patient's tracheostomy tube. I called our general surgeon and he will take the patient to the operating room to place the tracheostomy tube. We will admit the patient to the hospitalist. Current Medications Current Medications Current Medications Medications (Trade) Dose Ordered Sig/Lidia Start Time Stop Time Status Last Admin Dose Admin Benzocaine (Hurricaine One) 1 spray STK-MED ONCE 02/23/19 17:05 02/23/19 17:06 DC Bupivacaine HCl (Sensorcaine Mpf 0.5%) 30 ml STK-MED ONCE 02/23/19 15:30 02/23/19 16:31 DC Cellulose (Surgicel Fibrillar 1x2) 1 each STK-MED ONCE 02/23/19 15:34 02/23/19 16:34 DC Dexamethasone Sodium Phosphate (Decadron) 4 mg STK-MED ONCE 02/23/19 16:24 02/23/19 16:24 DC Fentanyl Citrate (Fentanyl 2ml Vial) 50 mcg PRN Q5MIN PRN 02/23/19 17:00 02/24/19 16:59 Glycopyrrolate (Robinul) 1 mg STK-MED ONCE 02/23/19 16:23 02/23/19 16:23 DC Hydromorphone HCl (Dilaudid) 0.5 mg PRN Q10MIN PRN 02/23/19 17:00 02/24/19 16:59 Lidocaine HCl (Xylocaine-Mpf 1% 2ml Vial) 2 ml PRN 1X PRN 02/23/19 17:00 02/24/19 16:59 Midazolam HCl (Versed) 2 mg STK-MED ONCE 02/23/19 17:16 02/23/19 17:16 DC Morphine Sulfate (Morphine Sulfate) 1 mg PRN Q10MIN PRN 02/23/19 17:00 02/24/19 16:59 Neostigmine Methylsulfate (Neostigmine Methylsulfate) 5 mg STK-MED ONCE 02/23/19 16:23 02/23/19 16:23 DC Ondansetron HCl (Zofran) 4 mg PRN Q6HRS PRN 02/23/19 17:00 02/24/19 16:59 Prochlorperazine Edisylate (Compazine) 5 mg PACU PRN PRN 02/23/19 17:00 02/24/19 16:59 Propofol 20 ml @ As Directed STK-MED ONCE 02/23/19 16:24 02/23/19 16:24 DC Ringer's Solution 1,000 ml @ 30 mls/hr Q24H 02/23/19 16:47 02/24/19 04:46 Rocuronium [place] (Zemuron) 50 mg STK-MED ONCE 02/23/19 16:23 02/23/19 16:23 DC Allergies Allergies Allergies Coded Allergies Type Severity Reaction Last Updated Verified I S O L A T I O N *CONTACT* Allergy Unknown 11/02/18 Yes No Known Medication Allergies Allergy Unknown 11/02/18 Yes Physical Exam Physical Exam Constitutional: Well developed, well nourished, no acute distress, non-toxic appearance. [] HENT: Normocephalic, atraumatic, bilateral external ears normal, oropharynx moist, no oral exudates, nose normal. [] Eyes: PERRLA, EOMI, conjunctiva normal, no discharge. [] Neck: tracheostomy site is patent without bleeding. tach mask on. Cardiovascular:Heart rate regular rhythm, no murmur [] Lungs & Thorax: Bilateral breath sounds clear to auscultation [] patient is resting comfortably and breathing without difficulty on nasal cannula and tracheostomy mask. Abdomen: Bowel sounds normal, soft, no tenderness, no masses, no pulsatile masses. [] Skin: Warm, dry, no erythema, no rash. [] Back: No tenderness, no CVA tenderness. [] Extremities: No tenderness, no cyanosis, no clubbing, ROM intact, no edema. [] Neurologic: Alert and oriented X 3, normal motor function, normal sensory function, no focal deficits noted. [] Psychologic: Affect normal, judgement normal, mood normal. [] Current Patient Data Vital Signs Vital Signs Date Time Temp Pulse Resp B/P (MAP) Pulse Ox O2 Delivery O2 Flow Rate FiO2 02/23/19 17:10 98.3 74 16 175/85 97 Tracheal Collar 8 98.3 EKG EKG [] Radiology/Procedures Radiology/Procedures [] Course & Med Decision Making Course & Med Decision Making Pertinent Labs and Imaging studies reviewed. (See chart for details) [] Dragon Disclaimer Dragon Disclaimer This electronic medical record was generated, in whole or in part, using a voice recognition dictation system. Departure Departure Impression: Primary Impression: Trachea displaced Disposition: ADMITTED INPATIENT Admitting Physician: LUIS ALBERTO Condition: STABLE Referrals: JESSICA PAINTING MD (PCP) KRUPA CHARLES MD Feb 23, 2019 16:25
--- NOTE | 2019-02-23 16:42 | PDOC2 ---
CONSULT Date of Consult Date of Consult DATE: 02/23/19 TIME: 16:37 Reason for Consult Reason for Consult: trach replacement Referring Physician Referring Physician: ED Identification/Chief Complaint Chief Complaint no trach tube Source Source: Caregiver, Chart review History of Present Illness Reason for Visit: Ms Johnson is a 68 yo lady with MS who has had a long standing tracheostomy tube as well as feeding tube and tube cecostomy. 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 She was brought to the ED and we are ask to see her for replacement Past Medical History Cardiovascular: HTN Pulmonary: Pneumonia CENTRAL NERVOUS SYSTEM: Other Psych: Depression Musculoskeletal: Other Renal/: UTI Past Surgical History Past Surgical History: Other Family History Family History: Hypertension Social History ALCOHOL: none Drugs: None Lives: with Family Domestic Violence: Neg Current Medications Current Medications Current Medications Glycopyrrolate (Robinul) 1 mg STK-MED ONCE .ROUTE ; Start 02/23/19 at 16:23; Stop 02/23/19 at 16:23; Status DC Rocuronium [place] (Zemuron) 50 mg STK-MED ONCE .ROUTE ; Start 02/23/19 at 16:23; Stop 02/23/19 at 16:23; Status DC Fentanyl Citrate (Fentanyl 2ml Vial) 100 mcg STK-MED ONCE .ROUTE ; Start 02/23/19 at 16:23; Stop 02/23/19 at 16:23; Status DC Neostigmine Methylsulfate (Neostigmine Methylsulfate) 5 mg STK-MED ONCE .ROUTE ; Start 02/23/19 at 16:23; Stop 02/23/19 at 16:23; Status DC Dexamethasone Sodium Phosphate (Decadron) 4 mg STK-MED ONCE .ROUTE ; Start 02/23/19 at 16:24; Stop 02/23/19 at 16:24; Status DC Propofol 20 ml @ As Directed STK-MED ONCE IV ; Start 02/23/19 at 16:24; Stop 02/23/19 at 16:24; Status DC Ondansetron HCl (Zofran) 4 mg STK-MED ONCE .ROUTE ; Start 02/23/19 at 16:24; Stop 02/23/19 at 16:24; Status DC Ondansetron HCl (Zofran) 4 mg STK-MED ONCE .ROUTE ; Start 02/23/19 at 16:24; Stop 02/23/19 at 16:24; Status DC Bupivacaine HCl (Sensorcaine Mpf 0.5%) 30 ml STK-MED ONCE .ROUTE ; Start 02/23/19 at 15:30; Stop 02/23/19 at 16:31; Status DC Cellulose (Surgicel Fibrillar 1x2) 1 each STK-MED ONCE .ROUTE ; Start 02/23/19 at 15:34; Stop 02/23/19 at 16:34; Status DC Active Scripts Active Reported Diltiazem Hcl Tablet (Diltiazem Hcl) 30 Mg Tablet 30 Mg PO TID 30 Days Diltiazem Hcl Tablet (Diltiazem Hcl) 30 Mg Tablet 30 Mg PO TID Atorvastatin Calcium 80 Mg Tablet 80 Mg PO HS Cardizem Tablet (Diltiazem Hcl) 30 Mg Tablet 30 Mg PO HS PRN Enema Ready To Use (Na Phos,M-B/Na Phos,Di-Ba) 133 Ml Enema 133 Ml RC Acetaminophen 500 Mg Tablet 1 Tab PO Q6HRS Probiotic Plus & Cranberry Cap (Cran/C/B.coag/Fos/L.acid/L.rha) 1 Each Capsule 1 Each PO BID Estradiol Transdermal Patch (Estradiol) 1 Each Patch.tdwk 1 Each TD BID WEEKLY Next dose 06/30/17 Karishma (Norethindrone) 0.35 Mg Tablet 0.35 Mg PO DAILY Keppra (Levetiracetam) 500 Mg Tablet 750 Mg PO BID Cardizem Tablet (Diltiazem Hcl) 60 Mg Tablet 60 Mg PO DAILY16 Metoprolol Tartrate 25 Mg Tablet 1 Tab PO BID Xopenex (Levalbuterol Hcl) 0.63 Mg/3 Ml Vial.neb 1 Vial NEB TID Valium (Diazepam) 2 Mg Tablet 2 Mg PO TID Transderm-Scop (Scopolamine) 1 Each Patch.td72 1 Each TD Q3DAYS Indication: secretions Next dose: 06/30/17 am Nystop (Nystatin) 60 Gm Powder 60 Gm TP PRN Indication: rash NExt dose: as needed Spiriva (Tiotropium [place]) 18 Mcg Cap.w.dev 18 Mcg IH DAILY Provigil (Modafinil) 200 Mg Tablet 200 Mg PO DAILY Paxil (Paroxetine Hcl) 10 Mg/5 Ml Oral.susp 10 Mg PO DAILY Baclofen 10 Mg Tablet 10 Mg PO TID Allergies Allergies: Coded Allergies: I S O L A T I O N *CONTACT* (Verified Allergy, Unknown, 11/02/18) (R)PSA No Known Medication Allergies (Verified Allergy, Unknown, 11/02/18) ROS Review of System unable to obtain Physical Exam General: Alert HEENT: Other (old trach site with trach mask O2 being delivered) Lungs: Normal air movement Heart: Regular rate Abdomen: Soft, Other (G tube, cecostomy tube) Vitals VITALS Vital Signs Date Time Temp Pulse Resp B/P (MAP) Pulse Ox O2 Delivery O2 Flow Rate FiO2 02/23/19 15:36 97.6 81 17 168/78 (108) 2 Nasal Cannula 97.6 Assessment/Plan Assessment/Plan needs trach replaced d/w her /caregiver explained risks including but not limited to bleeding, infection, injury to trachea or surrounding structures needing further interventions he will proceed RO PERDUE MD Feb 23, 2019 16:42
[2019-02-23] MEDS ORDERED: IV RINGERS,LACTATED 1000ML 1,000 ML IV SCH (16:47)
[2019-02-23] MEDS ORDERED: HYDROmorphone 2 MG/ML VIAL IV PRN (17:00)
[2019-02-23] MEDS ORDERED: fentaNYL PF VIAL 100 MCG/2 ML VIAL IV PRN ×2 (17:00)
[2019-02-23] MEDS ORDERED: ONDANSETRON PF 4 MG/2 ML VIAL. IV PRN (17:00)
[2019-02-23] MEDS ORDERED: MORPHINE SULFATE 2 MG/ML VIAL. IV PRN (17:00)
[2019-02-23] MEDS ORDERED: PROCHLORPERAZINE 10 MG/2 ML VIAL. IV PRN (17:00)
[2019-02-23] MEDS ORDERED: LIDOCAINE 1% PF 2 ML VIAL. ID PRN (17:00)
[2019-02-23] MEDS ORDERED: BENZOCAINE ONE 20% MUCOSAL SPRAY. ×2 (17:03→17:05)
[2019-02-23] MEDS ORDERED: MIDAZOLAM HCL/PF 2 MG/2 ML VIAL. ONE (17:16)
[2019-02-23] MEDS ORDERED: BENZOCAINE ONE 20% MUCOSAL SPRAY. MM (17:18)
--- NOTE | 2019-02-23 18:10 | PDOC ---
BRIEF OPERATIVE NOTE Date: Feb 23, 2019 Pre-Op Diagnosis MS, hx of tracheostomy Post-Op Diagnosis same Procedure Performed replacement tracheostomy tube Surgeon Germain Anesthesia Type: MAC Blood Loss 10cc IV Fluid 400cc Specimens Obtained none Findings stenotic opening Complications unable to place 6 tube Operative Note Wk # [id number] RO PERDUE MD Feb 23, 2019 18:10
--- NOTE | 2019-02-23 18:46 | PDOC ---
PULMONARY PROGRESS NOTES Vitals Vital Signs Date Time Temp Pulse Resp B/P (MAP) Pulse Ox O2 Delivery O2 Flow Rate FiO2 02/23/19 18:14 97 Ventilator 02/23/19 18:13 64 16 105/57 02/23/19 17:57 96.8 96.8 02/23/19 17:10 8 General: Alert, No acute distress Lungs: Other Cardiovascular: S1, S2 Abdomen: Soft, Non-tender, Other Extremities: No Edema, Other Medications Active Scripts Medications Dose Route/Sig Max Daily Dose Days Date Category Dose Instructions Diltiazem Hcl Tablet (Diltiazem Hcl) 30 Mg Tablet 30 Mg PO TID 30 01/14/19 Reported Diltiazem Hcl Tablet (Diltiazem Hcl) 30 Mg Tablet 30 Mg PO TID 01/14/19 Reported Atorvastatin Calcium 80 Mg Tablet 80 Mg PO HS 11/01/18 Reported Cardizem Tablet (Diltiazem Hcl) 30 Mg Tablet 30 Mg PO HS PRN 10/26/18 Reported Enema Ready To Use (Na Phos,M-B/Na Phos,Di-Ba) 133 Ml Enema 133 Ml RC 01/30/17 Reported Acetaminophen 500 Mg Tablet 1 Tab PO Q6HRS 01/30/17 Reported Probiotic Plus & Cranberry Cap (Cran/C/B.coag/Fos/L.acid/L.rha) 1 Each Capsule 1 Each PO BID 01/30/17 Reported Estradiol Transdermal Patch (Estradiol) 1 Each Patch.tdwk 1 Each TD BID WEEKLY 01/30/17 Reported Next dose 06/30/17 Karishma (Norethindrone) 0.35 Mg Tablet 0.35 Mg PO DAILY 01/30/17 Reported Keppra (Levetiracetam) 500 Mg Tablet 750 Mg PO BID 01/30/17 Reported Cardizem Tablet (Diltiazem Hcl) 60 Mg Tablet 60 Mg PO DAILY16 06/12/15 Reported Metoprolol Tartrate 25 Mg Tablet 1 Tab PO BID 12/28/14 Reported Xopenex (Levalbuterol Hcl) 0.63 Mg/3 Ml Vial.neb 1 Vial NEB TID 12/27/14 Reported Valium (Diazepam) 2 Mg Tablet 2 Mg PO TID 10/11/13 Reported Transderm-Scop (Scopolamine) 1 Each Patch.td72 1 Each TD Q3DAYS 07/28/13 Reported Indication: secretions Next dose: 06/30/17 am Nystop (Nystatin) 60 Gm Powder 60 Gm TP PRN 07/28/13 Reported Indication: rash NExt dose: as needed Spiriva (Tiotropium [place]) 18 Mcg Cap.w.dev 18 Mcg IH DAILY 07/28/13 Reported Provigil (Modafinil) 200 Mg Tablet 200 Mg PO DAILY 07/28/13 Reported Paxil (Paroxetine Hcl) 10 Mg/5 Ml Oral.susp 10 Mg PO DAILY 07/28/13 Reported Baclofen 10 Mg Tablet 10 Mg PO TID 07/28/13 Reported Impression . PT SEEN IN RECOVERY NO RESP DISTRESS ON AC MODE VSS STABLE FELIX CRACKLES NO WHEEZE SEE ORDERS NEW TRACH D/W DR PERDUE SIZE 4 PLACED AFTER DILATATION CHRISTOPHER JAMISON MD Feb 23, 2019 18:45
[2019-02-23 19:30] LABS: BASE EXCESS ABG 8 mmol/L (-3-3); CORRECTED PCO2 ABG 56 mmHg; CORRECTED PH ABG 7.41; CORRECTED PO2 ABG 76 mmHg; HCO3 ABG 35 mmol/L (21-28); PCO2 ABG 58 mmHg (35-46); PO2 ABG 81 mmHg (65-108); SAT O2 ABG 96 % (92-99)
--- NOTE | 2019-02-23 19:36 | OP ---
DATE OF SURGERY: 02/23/2019 PREOPERATIVE DIAGNOSIS: History of tracheostomy, now without a tube, multiple sclerosis, progressive. POSTOPERATIVE DIAGNOSIS: History of tracheostomy, now without a tube, multiple sclerosis, progressive. PROCEDURE: Placement of tracheostomy tube. SURGEON: Placido Perdue MD ANESTHESIA: Some topical with minimal sedation. Total of 50 mcg of fentanyl, 1 mg of Versed and 20 mg of propofol. IV FLUID: 400 mL. BLOOD LOSS: 10 mL. INDICATIONS: The patient is a 68-year-old lady with MS who has had a tracheostomy for at least 5-6 years. She is on a ventilator at night at home and a trach shield during the day. She was in her die inspector's office earlier today and her existing tracheostomy tube was removed and they were unable to place a replacement tube and as such, she was brought to the Emergency Department. She was brought to the OR for attempt to replace her tracheostomy tube. OPERATIVE REPORT: The patient brought to OR, her neck prepped and draped in usual sterile fashion. A topical spray anesthetic was sprayed through the stoma. With IV sedation on board, the stoma was gently dilated with serial dilators. Despite these efforts, I was unable to pass at 6 trach tube. After several attempts, I opted to place a 4 tube, cuffed. Trach strap attached, patient was observed in the OR for a time and then taken to the recovery room in stable condition. PLACIDO PERDUE MD DR: NAYLA/larry JOB#: [id number] / [id number] CHRISTOPHER Gonsalez MD
[2019-02-23 20:49] LABS: FIO2 ABG 45
--- NOTE | 2019-02-23 21:45 | NUR ---
Pt brought by PACU nurse and RT to room 110 at 1900. Pt transferred x5 to ICU bed. Pt placed back on ventilator in the room, being bagged during the transfer. Pts VSS upon admission. Pt a&o. Pts by bedside. STAT ABG drawn at time of pt admission with no critical values. Pts lungs coarse/wheezy upon auscultation. Chest x-ray scheduled by Dr. Brown at 0500 on 02/24/19. Pts new 4.[address] SPO2 100% so far this shift. Pt denies pain and is currently resting in bed with eyes closed and call light within reach. See VS, interventions.
--- NOTE | 2019-02-23 22:24 | HP ---
ADMIT DATE: 02/23/2019 CHIEF COMPLAINT: Tracheostomy difficulties. 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 She has a tracheostomy and has had for some time. I have taken care of her for years. Basically as I understand she was going to get her trach change today, but they were having problems with that. Dr. Brown sent her to the ER. We have decided to go ahead and admit her and have General Surgery to see if they can do the tracheostomy. Since I last talked to the ER doctor, the patient is now in the ICU room 110 where she is doing well and they have now successfully place a tracheostomy. PAST MEDICAL HISTORY: Hypertension, advanced MS, respiratory failure, trach, excessive secretions, seizures. PAST SURGICAL HISTORY: PEG tube, baclofen pump, colostomy, 1 kidney. ALLERGIES: None. FAMILY HISTORY: Hypertension. 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 She is . She does not drink, smoke or take drugs. MEDICATIONS: Reviewed, please refer to the MRAD. REVIEW OF SYSTEMS: Unable to obtain. The patient is nonverbal. PHYSICAL EXAMINATION: VITALS: Within normal limits and are stable. GENERAL: No apparent distress. Alert and oriented. HEENT: She has a clean trach in place. NECK: Supple, no JVD, no thyromegaly was noted. LUNGS: Clear to auscultation in all lung esparza without rhonchi or wheezing. HEART: RRR, S1, S2 present. Peripheral pulses intact, no obvious murmurs were noted. ABDOMEN: She has an tracheostomy and a PEG. EXTREMITIES: She has bilateral foot drop. NEUROLOGIC: She cannot move. Only thing she can do is blink a little bit. PSYCHIATRIC: Normal affect, normal mood. Stable. SKIN: No ulcerations or rashes, good skin turgor, no jaundice. VASCULAR: Good capillary refill, neurovascular bundle appears to be intact. LABORATORY DATA: PH is 7.40. ASSESSMENT AND PLAN: Status post revision of tracheostomy. The patient has been admitted to the ICU. We will continue her home meds. Check a chest x-ray, frequent ABGs. We will try to do some physical therapy, home meds. LONG-TERM PROGNOSIS: Very guarded. RIGOBERTO VORA DO DR: Lena JOB#: [id number] / [id number]
[2019-02-24] VITALS (24 sets, daily range): BP systolic 83–151; BP diastolic 44–71
[2019-02-24 06:25] LABS: ALBUMIN/GLOBULIN RATIO 0.6 (1.0-1.7); CALCIUM 9.3 mg/dL (8.5-10.1); CREATININE 0.4 mg/dL (0.6-1.0); GFR 159.2; POTASSIUM 3.3 mmol/L (3.5-5.1); TOTAL BILIRUBIN 0.4 mg/dL (0.2-1.0); TOTAL PROTEIN 7.8 g/dL (6.4-8.2)
--- NOTE | 2019-02-24 09:07 | NUR ---
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 Pt to always be in contact precautions.
--- NOTE | 2019-02-24 09:36 | RAD ---
EXAM: Chest, single view. HISTORY: Respiratory failure. COMPARISON: 01/13/2019 FINDINGS: A frontal view of the chest is obtained. There has been interval increase in a moderate partially layering right pleural effusion. There is a stable moderate left pleural effusion. There is stable diffuse increased interstitial opacity. The heart is normal in size. There is a tracheostomy device overlying the thoracic inlet. There is no pneumothorax. IMPRESSION: 1. Increased moderate right pleural effusion and stable moderate left pleural effusion. 2. Stable diffuse interstitial infiltrate. Electronically signed by: Shirley Montelongo MD (02/24/2019 9:34 AM) [place] [id number]
[2019-02-24] MEDS ORDERED: dilTIAZem HCL 30 MG TABLET PO PRN (10:15)
[2019-02-24] MEDS ORDERED: ALBUTEROL SULFATE 2.5 MG/3 ML NEBU. NEB PRN (10:30)
--- NOTE | 2019-02-24 10:31 | NUR ---
NN :Decreasing urinary output. NPO staus maintained. Orders w IVF restarted ...NS 150/H. Repositioned q 2-3 H. Unable to perform PROM related to extremity rigidity. Remains on vent at this time.( uses trilogy at home ) Initial unhappiness w having to stay post procedure abated
[2019-02-24] MEDS ORDERED: SCOPOLAMINE 1.5MG PATCH. TD SCH (11:00)
[2019-02-24] MEDS: IPRATRPIUM/ALBUTEROL 0.5/2.5MG 3 ML NEBU. NEB SCH ×3 (11:16→19:45)
[2019-02-24] MEDS ORDERED: IV NORMAL SALINE 500ML BAG 500 ML IV ONE (11:30)
--- NOTE | 2019-02-24 11:55 | PDOC ---
[facility] PROGRESS NOTE Chief Complaint Chief Complaint Post-op Tracheostomy Replacement Advanced MS Hypertension Respiratory failure Seizures. History of Present Illness History of Present Illness 02/24/19 Pt seen and examined in ICU Pt resting in NAD Vent Settings: AC/16/400/45% with 5 of PEEP O2 sats: 97% pH: 7.41 DW RN Reviewed chart Vitals/I&O Vitals/I&O: Vital Signs Date Time Temp Pulse Resp B/P (MAP) Pulse Ox O2 Delivery O2 Flow Rate FiO2 02/24/19 11:08 98 Ventilator 02/24/19 10:29 82 105/66 (79) 02/24/19 09:00 99.1 99.1 02/24/19 06:00 16 02/23/19 17:10 8 I & O 02/23/19 02/23/19 02/24/19 15:00 23:00 07:00 Output Total 475 ml 200 ml Balance -475 ml -200 ml Physical Exam General: Cooperative, No acute distress Heart: Regular rate, No murmurs Lungs: Clear Abdomen: Soft, Other (G tube, cecostomy tube) Extremities: No clubbing, No cyanosis Skin: No rashes, No significant lesion Labs Labs: Laboratory Tests Test 02/23/19 18:54 02/24/19 05:30 O2 Saturation 96 % (92-99) Arterial Blood pH 7.40 (7.35-7.45) Arterial Blood pH (Temp corrected) 7.41 Arterial Blood pCO2 at Patient Temp 58 mmHg (35-46) Arterial Blood pCO2 (Temp correct) 56 mmHg Arterial Blood pO2 at Patient Temp 81 mmHg (65-108) Arterial Blood pO2 (Temp corrected) 76 mmHg Arterial Blood HCO3 35 mmol/L (21-28) Arterial Blood Base Excess 8 mmol/L (-3-3) FiO2 45 Sodium Level 143 mmol/L (136-145) Potassium Level 3.3 mmol/L (3.5-5.1) Chloride Level 103 mmol/L (98-107) Carbon Dioxide Level 31 mmol/L (21-32) Anion Gap 9 (6-14) Blood Urea Nitrogen 27 mg/dL (7-20) Creatinine 0.4 mg/dL (0.6-1.0) Estimated GFR (Cockcroft-Gault) 159.2 BUN/Creatinine Ratio 68 (6-20) Glucose Level 86 mg/dL (70-99) Calcium Level 9.3 mg/dL (8.5-10.1) Total Bilirubin 0.4 mg/dL (0.2-1.0) Aspartate Amino Transf (AST/SGOT) 19 U/L (15-37) Alanine Aminotransferase (ALT/SGPT) 24 U/L (14-59) Alkaline Phosphatase 54 U/L (46-116) Total Protein 7.8 g/dL (6.4-8.2) Albumin 3.0 g/dL (3.4-5.0) Albumin/Globulin Ratio 0.6 (1.0-1.7) Review of Systems Review of Systems: Unable to obtain Assessment and Plan Assessmemt and Plan Problems Medical Problems: (1) Trachea displaced Status: Acute Assessment Post-op Tracheostomy Replacement Advanced MS Hypertension Respiratory failure Seizures Plan ICU Monitoring Mechanical Ventilation Home meds resumed Probable discharge Comment Review of Relevant I have reviewed the following items lucila (where applicable) has been applied. Medications: Current Medications Medications (Trade) Dose Ordered Sig/Lidia Route PRN Reason Start Time Stop Time Status Last Admin Dose Admin Benzocaine (Hurricaine One) 1 spray STK-MED ONCE MM 02/23/19 17:18 02/23/19 17:46 DC 02/23/19 17:46 Albuterol/ Ipratropium (Duoneb) 3 ml RTQID NEB 02/24/19 12:00 02/24/19 11:16 RIGOBERTO VORA III DO Feb 24, 2019 11:55
--- NOTE | 2019-02-24 12:04 | CONS ---
DATE OF CONSULTATION: PULMONARY CONSULTATION ATTENDING PHYSICIAN: Kiki Mosquera DO REASON FOR CONSULTATION: Respiratory failure. HISTORY OF PRESENT ILLNESS: The patient is very well known to us. 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 She is on Trilogy at home. She has been treated multiple times for recurrent pneumonias as well as had multiple thoracenteses for pleural effusions. She was in the office with Dr. Brown yesterday and the requested to have a trach change. It was difficult to place the new trach in the office and as a result, she was sent back to the Emergency Room. Dr. Groves was consulted and he took her to the OR and I was unable to change a size 6 trach. As a result, she had a cuffed trach replaced. She was brought to the ICU, on ventilator. Arterial blood gases yesterday showed a pH of 7.40, pCO2 of 58 and a pO2 of 56 on 45% FiO2. She is currently awake, following commands. I have reviewed her chest x-ray. She has now reaccumulation of moderate size right pleural effusion. The effusion on the left is unchanged. PAST MEDICAL HISTORY: History of hypertension, advanced multiple scleroses, history of chronic respiratory failure on chronic Trilogy at nighttime and chronic tracheostomy. She has multiple pneumonias in the past and multiple thoracenteses in the past. PAST SURGICAL HISTORY: As discussed above including PEG tube, baclofen pump, colostomy, and one kidney. ALLERGIES: None. FAMILY HISTORY: Hypertension. 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 No history of tobacco or alcohol use. MEDICATIONS: All reviewed as listed in the MRAD. ALLERGIES: None. REVIEW OF SYSTEMS: Unable to obtain from the patient. PHYSICAL EXAMINATION: VITAL SIGNS: Reviewed. T-max of 99, blood pressure 107 latest, and pulse ox 97% on 40% FiO2 on AC mode. HEENT: Sclerae nonicteric. NECK: Supple. LUNGS: With diminished breath sounds at the bases. CARDIOVASCULAR: Regular rate and rhythm. ABDOMEN: Soft and obese. EXTREMITIES: Bilateral pitting edema. LABORATORY DATA: Reviewed. Her BUN is 27 and creatinine 0.4. Potassium 3.3. Albumin level is 3.0. ABGs as discussed in my history of present illness. IMPRESSION: 1. Acute on chronic hypoxic respiratory failure due to difficulty in replacing the trach as an outpatient and also development of pleural effusion. 2. Status post tracheostomy change to size #4 Shiley cuffed trach, now on a ventilator. 3. Reaccumulation of right-sided pleural effusion and unchanged small left pleural effusion. We will probably benefit from another thoracentesis. 5. Advanced multiple sclerosis with multiple recurrent pneumonias in the past and recurrent thoracentesis for pleural effusions. RECOMMENDATIONS: 1. We will change the patient to pressure support mode and if she does okay, then we will discontinue ventilator during the day and just used at nighttime. She uses a Trilogy nocturnal ventilator at home. 2. Low-grade postop fever, monitor for now. 3. Obtain labs. 4. We will follow ABGs and make necessary adjustment. 5. We will likely require another thoracentesis on the right side before discharge home. 6. Discussed with RN and RT. We will follow along with you. Critical care time 33 minutes. ANA HOLLIDAY MD DR: WILDER/nts JOB#: [id number] / [id number]
[2019-02-24] MEDS: dilTIAZem HCL 30 MG TABLET PO SCH ×2 (12:19→14:00)
[2019-02-24] MEDS: METOPROLOL TART IMMED RELEASE 25 MG TABLET. PO SCH (12:20)
[2019-02-24] MEDS: PARoxetine 10 MG TABLET PO SCH (12:20)
[2019-02-24] MEDS: levETIRAcetam 250 MG TABLET PO SCH ×2 (12:21→21:00)
[2019-02-24] MEDS: ACETAMINOPHEN 500 MG TABLET PO SCH ×3 (12:25→23:52)
--- NOTE | 2019-02-24 13:55 | DS ---
DATE OF DISCHARGE: 02/24/2019 ADMISSION DIAGNOSES: Tracheostomy problems. DISCHARGE DIAGNOSIS: Postop day #1 revision of tracheostomy tube. CONSULTS: Dr. Groves. PROCEDURES: New tracheostomy placed by Dr. Groves. 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 Dr. Brown needed to change her trach yesterday, but apparently there were some issues getting change. We decided to admit the patient and consult General Surgery, Dr. Groves took her for a new trach last night. This morning, I saw her, examined her. She is at her baseline. We plan to discharge back to her previous living arrangement. DISPOSITION: Home. ACTIVITY: As tolerated. DIET: PEG feeds. MEDICATIONS: Please see the MRAD. We are going to resume previous home meds. TOTAL TIME: 34 minutes. RIGOBERTO VORA DO DR: ROCCO/larry JOB#: [id number] / [id number]
[2019-02-24] MEDS ORDERED: NON FORMULARY ITEM (Levalbuterol Hcl (Xopenex) 1 VIAL) NEB SCH (14:00)
[2019-02-24] MEDS ORDERED: dilTIAZem HCL 30 MG TABLET PO SCH (14:00)
--- NOTE | 2019-02-24 14:01 | NUR ---
Attempted CPAP trial w/o success on patients part. RR consistently 6-8. Trial deferred w vent returned to previous settings. Home meds ordered /given. Communication w dietary -restart tube feed. No active bleed observed @ trach site. Secretions remain pink tinged,oral secretions
[2019-02-24] MEDS: CYCLOBENZAPRINE 10 MG TABLET. PO SCH ×2 (14:14→21:00)
[2019-02-24] MEDS: diazePAM 2 MG TABLET PO SCH ×2 (14:14→21:00)
--- NOTE | 2019-02-24 15:38 | NUR ---
SS following for discharge planning. SS reviewed pt chart. Pt is from home with spouse and was previously on services with [facility], ; fax [phone]. Pt will discharge to home with spouse at discharge. SS will continue to follow for discharge planning.
[2019-02-24] MEDS ORDERED: DILTIAZEM HCL 60 MG PO SCH (16:00)
--- NOTE | 2019-02-24 16:34 | NUR ---
Reposition q 2-3 H w limit 1 h on back. Periods of disatisfaction on being admited . Someimes co opreative w cares and some times not. Cont POC in prep for home
--- NOTE | 2019-02-24 17:28 | NUR ---
Wound care Wound care consult for buttock wound. Pt has a healing stage II PU to right buttock. Cleansed area and applied barrier cream. No other wounds noted on full skin inspection. Pt turned to right side and left with heels floated. WC will continue to follow for possible changes. Pt on ICU bed.
[2019-02-24] MEDS ORDERED: [UNRECOGNIZED DRUG - OTHER] PO SCH (21:00)
[2019-02-24] MEDS: ATORVASTATIN CALCIUM 40 MG TABLET. PO SCH (21:00)
[2019-02-25] VITALS (23 sets, daily range): BP systolic 83–180; BP diastolic 41–82
[2019-02-25] MEDS: METOPROLOL TART IMMED RELEASE 25 MG TABLET. PO SCH ×3 (00:03→20:35)
[2019-02-25] MEDS: dilTIAZem HCL 30 MG TABLET PO SCH ×4 (00:04→20:35)
[2019-02-25] MEDS: ACETAMINOPHEN 500 MG TABLET PO SCH ×3 (06:15→19:44)
[2019-02-25 08:19] LABS: BASO % 1 % (0-3); EOS # 0.2 x10^3/uL (0.0-0.7); EOS % 3 % (0-3); HEMATOCRIT 38.2 % (36.0-47.0); HEMOGLOBIN 12.7 g/dL (12.0-15.5); LYMPH % 21 % (24-48); MEAN CORPUSCULAR HEMOGLOBIN 30 pg (25-35); MEAN CORPUSCULAR HGB CONC 33 g/dL (31-37); MEAN CORPUSCULAR VOLUME 91 fL (79-100); MONO # 0.4 x10^3/uL (0.0-1.1); MONO % 8 % (0-9); NEUT # 3.4 x10^3/uL (1.8-7.7); NEUT % 67 % (31-73); PLATELET COUNT 257 x10^3/uL (140-400); RED BLOOD COUNT 4.22 x10^6/uL (3.50-5.40); RED CELL DISTRIBUTION WIDTH 15.1 % (11.5-14.5)
[2019-02-25] MEDS: IPRATRPIUM/ALBUTEROL 0.5/2.5MG 3 ML NEBU. NEB SCH ×4 (08:28→20:13)
[2019-02-25 08:30] LABS: CALCIUM 9.1 mg/dL (8.5-10.1); CREATININE 0.4 mg/dL (0.6-1.0); GFR 159.2; POTASSIUM 3.6 mmol/L (3.5-5.1)
[2019-02-25 08:55] LABS: BASE EXCESS ABG 6 mmol/L (-3-3); HCO3 ABG 29 mmol/L (21-28); PCO2 ABG 38 mmHg (35-46); PO2 ABG 78 mmHg (65-108); SAT O2 ABG 96 % (92-99)
[2019-02-25 08:59] LABS: FIO2 ABG 30
[2019-02-25] MEDS ORDERED: NON FORMULARY ITEM (Modafinil (Provigil) 200 MG) PO SCH (09:00)
[2019-02-25] MEDS ORDERED: NON FORMULARY ITEM (Tiotropium Bromide (Spiriva) 18 MCG) IH SCH (09:00)
[2019-02-25] MEDS ORDERED: NORETHINDRONE 0.35 MG PO SCH (09:00)
--- NOTE | 2019-02-25 10:47 | PDOC ---
PULMONARY PROGRESS NOTES Subjective awake, on PS with low volumes Vitals Vital Signs Date Time Temp Pulse Resp B/P (MAP) Pulse Ox O2 Delivery O2 Flow Rate FiO2 02/25/19 09:08 97 Ventilator 02/25/19 06:00 80 136/69 (91) 02/25/19 04:00 97.6 97.6 02/24/19 17:00 16 General: Alert, No acute distress Lungs: Other (decrease bases) Cardiovascular: S1, S2 Abdomen: Soft, Non-tender, Other Neuro Exam: Alert Extremities: Other (1+edema) Labs Laboratory Tests Test 02/23/19 18:54 02/23/19 21:55 02/24/19 05:30 02/25/19 08:00 O2 Saturation 96 % (92-99) 96 % (92-99) Arterial Blood pH 7.40 (7.35-7.45) 7.51 (7.35-7.45) Arterial Blood pH (Temp corrected) 7.41 Arterial Blood pCO2 at Patient Temp 58 mmHg (35-46) 38 mmHg (35-46) Arterial Blood pCO2 (Temp correct) 56 mmHg Arterial Blood pO2 at Patient Temp 81 mmHg (65-108) 78 mmHg (65-108) Arterial Blood pO2 (Temp corrected) 76 mmHg Arterial Blood HCO3 35 mmol/L (21-28) 29 mmol/L (21-28) Arterial Blood Base Excess 8 mmol/L (-3-3) 6 mmol/L (-3-3) FiO2 45 30 Nasal Screen MRSA (PCR) Negative (Negative) Sodium Level 143 mmol/L (136-145) Potassium Level 3.3 mmol/L (3.5-5.1) Chloride Level 103 mmol/L (98-107) Carbon Dioxide Level 31 mmol/L (21-32) Anion Gap 9 (6-14) Blood Urea Nitrogen 27 mg/dL (7-20) Creatinine 0.4 mg/dL (0.6-1.0) Estimated GFR (Cockcroft-Gault) 159.2 BUN/Creatinine Ratio 68 (6-20) Glucose Level 86 mg/dL (70-99) Calcium Level 9.3 mg/dL (8.5-10.1) Total Bilirubin 0.4 mg/dL (0.2-1.0) Aspartate Amino Transf (AST/SGOT) 19 U/L (15-37) Alanine Aminotransferase (ALT/SGPT) 24 U/L (14-59) Alkaline Phosphatase 54 U/L (46-116) Total Protein 7.8 g/dL (6.4-8.2) Albumin 3.0 g/dL (3.4-5.0) Albumin/Globulin Ratio 0.6 (1.0-1.7) Test 02/25/19 08:05 White Blood Count 5.0 x10^3/uL (4.0-11.0) Red Blood Count 4.22 x10^6/uL (3.50-5.40) Hemoglobin 12.7 g/dL (12.0-15.5) Hematocrit 38.2 % (36.0-47.0) Mean Corpuscular Volume 91 fL (79-100) Mean Corpuscular Hemoglobin 30 pg (25-35) Mean Corpuscular Hemoglobin Concent 33 g/dL (31-37) Red Cell Distribution Width 15.1 % (11.5-14.5) Platelet Count 257 x10^3/uL (140-400) Neutrophils (%) (Auto) 67 % (31-73) Lymphocytes (%) (Auto) 21 % (24-48) Monocytes (%) (Auto) 8 % (0-9) Eosinophils (%) (Auto) 3 % (0-3) Basophils (%) (Auto) 1 % (0-3) Neutrophils # (Auto) 3.4 x10^3/uL (1.8-7.7) Lymphocytes # (Auto) 1.0 x10^3/uL (1.0-4.8) Monocytes # (Auto) 0.4 x10^3/uL (0.0-1.1) Eosinophils # (Auto) 0.2 x10^3/uL (0.0-0.7) Basophils # (Auto) 0.0 x10^3/uL (0.0-0.2) Sodium Level 145 mmol/L (136-145) Potassium Level 3.6 mmol/L (3.5-5.1) Chloride Level 105 mmol/L (98-107) Carbon Dioxide Level 31 mmol/L (21-32) Anion Gap 9 (6-14) Blood Urea Nitrogen 31 mg/dL (7-20) Creatinine 0.4 mg/dL (0.6-1.0) Estimated GFR (Cockcroft-Gault) 159.2 Glucose Level 134 mg/dL (70-99) Calcium Level 9.1 mg/dL (8.5-10.1) Laboratory Tests Test 02/25/19 08:00 02/25/19 08:05 O2 Saturation 96 % (92-99) Arterial Blood pH 7.51 (7.35-7.45) Arterial Blood pCO2 at Patient Temp 38 mmHg (35-46) Arterial Blood pO2 at Patient Temp 78 mmHg (65-108) Arterial Blood HCO3 29 mmol/L (21-28) Arterial Blood Base Excess 6 mmol/L (-3-3) FiO2 30 White Blood Count 5.0 x10^3/uL (4.0-11.0) Red Blood Count 4.22 x10^6/uL (3.50-5.40) Hemoglobin 12.7 g/dL (12.0-15.5) Hematocrit 38.2 % (36.0-47.0) Mean Corpuscular Volume 91 fL (79-100) Mean Corpuscular Hemoglobin 30 pg (25-35) Mean Corpuscular Hemoglobin Concent 33 g/dL (31-37) Red Cell Distribution Width 15.1 % (11.5-14.5) Platelet Count 257 x10^3/uL (140-400) Neutrophils (%) (Auto) 67 % (31-73) Lymphocytes (%) (Auto) 21 % (24-48) Monocytes (%) (Auto) 8 % (0-9) Eosinophils (%) (Auto) 3 % (0-3) Basophils (%) (Auto) 1 % (0-3) Neutrophils # (Auto) 3.4 x10^3/uL (1.8-7.7) Lymphocytes # (Auto) 1.0 x10^3/uL (1.0-4.8) Monocytes # (Auto) 0.4 x10^3/uL (0.0-1.1) Eosinophils # (Auto) 0.2 x10^3/uL (0.0-0.7) Basophils # (Auto) 0.0 x10^3/uL (0.0-0.2) Sodium Level 145 mmol/L (136-145) Potassium Level 3.6 mmol/L (3.5-5.1) Chloride Level 105 mmol/L (98-107) Carbon Dioxide Level 31 mmol/L (21-32) Anion Gap 9 (6-14) Blood Urea Nitrogen 31 mg/dL (7-20) Creatinine 0.4 mg/dL (0.6-1.0) Estimated GFR (Cockcroft-Gault) 159.2 Glucose Level 134 mg/dL (70-99) Calcium Level 9.1 mg/dL (8.5-10.1) Medications Active Scripts Medications Dose Route/Sig Max Daily Dose Days Date Category Dose Instructions Diltiazem Hcl Tablet (Diltiazem Hcl) 30 Mg Tablet 30 Mg PO TID 30 01/14/19 Reported Diltiazem Hcl Tablet (Diltiazem Hcl) 30 Mg Tablet 30 Mg PO TID 01/14/19 Reported Atorvastatin Calcium 80 Mg Tablet 80 Mg PO HS 11/01/18 Reported Cardizem Tablet (Diltiazem Hcl) 30 Mg Tablet 30 Mg PO HS PRN 10/26/18 Reported Enema Ready To Use (Na Phos,M-B/Na Phos,Di-Ba) 133 Ml Enema 133 Ml RC 01/30/17 Reported Acetaminophen 500 Mg Tablet 1 Tab PO Q6HRS 01/30/17 Reported Probiotic Plus & Cranberry Cap (Cran/C/B.coag/Fos/L.acid/L.rha) 1 Each Capsule 1 Each PO BID 01/30/17 Reported Estradiol Transdermal Patch (Estradiol) 1 Each Patch.tdwk 1 Each TD BID WEEKLY 01/30/17 Reported Next dose 06/30/17 Karishma (Norethindrone) 0.35 Mg Tablet 0.35 Mg PO DAILY 01/30/17 Reported Keppra (Levetiracetam) 500 Mg Tablet 750 Mg PO BID 01/30/17 Reported Cardizem Tablet (Diltiazem Hcl) 60 Mg Tablet 60 Mg PO DAILY16 06/12/15 Reported Metoprolol Tartrate 25 Mg Tablet 1 Tab PO BID 12/28/14 Reported Xopenex (Levalbuterol Hcl) 0.63 Mg/3 Ml Vial.neb 1 Vial NEB TID 12/27/14 Reported Valium (Diazepam) 2 Mg Tablet 2 Mg PO TID 10/11/13 Reported Transderm-Scop (Scopolamine) 1 Each Patch.td72 1 Each TD Q3DAYS 07/28/13 Reported Indication: secretions Next dose: 06/30/17 am Nystop (Nystatin) 60 Gm Powder 60 Gm TP PRN 07/28/13 Reported Indication: rash NExt dose: as needed Spiriva (Tiotropium [place]) 18 Mcg Cap.w.dev 18 Mcg IH DAILY 07/28/13 Reported Provigil (Modafinil) 200 Mg Tablet 200 Mg PO DAILY 07/28/13 Reported Paxil (Paroxetine Hcl) 10 Mg/5 Ml Oral.susp 10 Mg PO DAILY 07/28/13 Reported Baclofen 10 Mg Tablet 10 Mg PO TID 07/28/13 Reported Impression . 1. Acute on chronic hypoxic respiratory failure due to difficulty in replacing the trach as an outpatient and also development of pleural effusion. 2. Status post tracheostomy change to size #4 Shiley cuffed trach, now on a ventilator. 3. Reaccumulation of right-sided pleural effusion and unchanged small left pleural effusion. will probably benefit from another thoracentesis. 5. Advanced multiple sclerosis with multiple recurrent pneumonias in the past and recurrent thoracentesis for pleural effusions. Plan . 1. On pressure support mode, Will try TS .She uses a Trilogy nocturnal ventilator at home. 2. Low-grade postop fever, monitor for now. resolved 3. right thoracentesis today 4. follow ABG prn 5. Hopefully post thoracentesis, will tolerate TS better 6. Discussed with RN and RT. d/w in detail. He wants to take her home today. I have rec that I would like to see how she does post thoracentesis and safe to be on TS all day. he agrees to keep her overnight. dc home in [place] Alonso MD Feb 25, 2019 10:47
[2019-02-25] MEDS: PARoxetine 10 MG TABLET PO SCH (11:27)
[2019-02-25] MEDS: CYCLOBENZAPRINE 10 MG TABLET. PO SCH ×3 (11:27→20:35)
[2019-02-25] MEDS: levETIRAcetam 250 MG TABLET PO SCH ×2 (11:28→20:35)
[2019-02-25] MEDS: diazePAM 2 MG TABLET PO SCH ×3 (11:28→20:35)
--- NOTE | 2019-02-25 14:06 | PDOC ---
[facility] PROGRESS NOTE Chief Complaint Chief Complaint Post-op Tracheostomy Replacement Advanced MS Hypertension Respiratory failure Seizures. 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 chart Vitals/I&O Vitals/I&O: Vital Signs Date Time Temp Pulse Resp B/P (MAP) Pulse Ox O2 Delivery O2 Flow Rate FiO2 02/25/19 11:29 70 176/69 02/25/19 09:08 97 Ventilator 02/25/19 04:00 97.6 97.6 02/24/19 17:00 16 I & O 02/24/19 02/24/19 02/25/19 15:00 23:00 07:00 Intake Total 500 ml 880 ml 866 ml Output Total 155 ml 240 ml 220 ml Balance 345 ml 640 ml 646 ml Physical Exam General: Alert, Cooperative, No acute distress Heart: Regular rate, No murmurs Lungs: Other (decrease bases) Abdomen: Soft, Other (G tube, cecostomy tube) Extremities: No clubbing, No cyanosis Skin: No rashes, No significant lesion Labs Labs: Laboratory Tests Test 02/25/19 08:00 02/25/19 08:05 O2 Saturation 96 % (92-99) Arterial Blood pH 7.51 (7.35-7.45) Arterial Blood pCO2 at Patient Temp 38 mmHg (35-46) Arterial Blood pO2 at Patient Temp 78 mmHg (65-108) Arterial Blood HCO3 29 mmol/L (21-28) Arterial Blood Base Excess 6 mmol/L (-3-3) FiO2 30 White Blood Count 5.0 x10^3/uL (4.0-11.0) Red Blood Count 4.22 x10^6/uL (3.50-5.40) Hemoglobin 12.7 g/dL (12.0-15.5) Hematocrit 38.2 % (36.0-47.0) Mean Corpuscular Volume 91 fL (79-100) Mean Corpuscular Hemoglobin 30 pg (25-35) Mean Corpuscular Hemoglobin Concent 33 g/dL (31-37) Red Cell Distribution Width 15.1 % (11.5-14.5) Platelet Count 257 x10^3/uL (140-400) Neutrophils (%) (Auto) 67 % (31-73) Lymphocytes (%) (Auto) 21 % (24-48) Monocytes (%) (Auto) 8 % (0-9) Eosinophils (%) (Auto) 3 % (0-3) Basophils (%) (Auto) 1 % (0-3) Neutrophils # (Auto) 3.4 x10^3/uL (1.8-7.7) Lymphocytes # (Auto) 1.0 x10^3/uL (1.0-4.8) Monocytes # (Auto) 0.4 x10^3/uL (0.0-1.1) Eosinophils # (Auto) 0.2 x10^3/uL (0.0-0.7) Basophils # (Auto) 0.0 x10^3/uL (0.0-0.2) Sodium Level 145 mmol/L (136-145) Potassium Level 3.6 mmol/L (3.5-5.1) Chloride Level 105 mmol/L (98-107) Carbon Dioxide Level 31 mmol/L (21-32) Anion Gap 9 (6-14) Blood Urea Nitrogen 31 mg/dL (7-20) Creatinine 0.4 mg/dL (0.6-1.0) Estimated GFR (Cockcroft-Gault) 159.2 Glucose Level 134 mg/dL (70-99) Calcium Level 9.1 mg/dL (8.5-10.1) Review of Systems Review of Systems: No c/o headache No c/o N/V/D Assessment and Plan Assessmemt and Plan Problems Medical Problems: (1) HTN (hypertension) Status: Chronic (2) Respiratory failure Status: Acute (3) Seizures Status: Acute (4) Trachea displaced Status: Acute Assessment Post-op Tracheostomy Replacement Advanced MS Hypertension Respiratory failure Seizures. Plan ICU Monitoring DVT Prophylaxis Labs Home Meds Await further input from subspecialists Await thoracentesis Total time 32 minutes Comment Review of Relevant I have reviewed the following items lucila (where applicable) has been applied. Medications: Current Medications Medications (Trade) Dose Ordered Sig/Lidia Route PRN Reason Start Time Stop Time Status Last Admin Dose Admin Atorvastatin Calcium (Lipitor) 80 mg QHS PO 02/24/19 21:00 02/24/19 21:00 RIGOBERTO VORA III, DO Feb 25, 2019 14:06
[2019-02-25] MEDS: ATORVASTATIN CALCIUM 40 MG TABLET. PO SCH (20:42)
[2019-02-26] VITALS (12 sets, daily range): BP systolic 115–171; BP diastolic 52–76
[2019-02-26] MEDS: ACETAMINOPHEN 500 MG TABLET PO SCH ×2 (00:29→05:38)
--- NOTE | 2019-02-26 06:42 | PDOC ---
PULMONARY PROGRESS NOTES Subjective trach, small trach secretion, didnt want to go on trilogy last night, tolerated vm 30% s/p thoracentesis 02/25 Vitals Vital Signs Date Time Temp Pulse Resp B/P (MAP) Pulse Ox O2 Delivery O2 Flow Rate FiO2 02/26/19 06:00 87 9 161/68 (99) 97 Tracheal Collar 8.0 02/26/19 05:00 98.8 98.8 Comments ros as mentioned as above other sys otherwise neg ROS: No Nausea General: Alert, No acute distress HEENT: Other (nc at perrl nose throat clear neck trach site ok no lad no thyromegaly) Lungs: Other (decrease bases) Cardiovascular: S1, S2 Abdomen: Soft, Non-tender, Other Neuro Exam: Alert Extremities: Other (1+edema) Skin: Warm Labs Laboratory Tests Test 02/25/19 08:00 02/25/19 08:05 O2 Saturation 96 % (92-99) Arterial Blood pH 7.51 (7.35-7.45) Arterial Blood pCO2 at Patient Temp 38 mmHg (35-46) Arterial Blood pO2 at Patient Temp 78 mmHg (65-108) Arterial Blood HCO3 29 mmol/L (21-28) Arterial Blood Base Excess 6 mmol/L (-3-3) FiO2 30 White Blood Count 5.0 x10^3/uL (4.0-11.0) Red Blood Count 4.22 x10^6/uL (3.50-5.40) Hemoglobin 12.7 g/dL (12.0-15.5) Hematocrit 38.2 % (36.0-47.0) Mean Corpuscular Volume 91 fL (79-100) Mean Corpuscular Hemoglobin 30 pg (25-35) Mean Corpuscular Hemoglobin Concent 33 g/dL (31-37) Red Cell Distribution Width 15.1 % (11.5-14.5) Platelet Count 257 x10^3/uL (140-400) Neutrophils (%) (Auto) 67 % (31-73) Lymphocytes (%) (Auto) 21 % (24-48) Monocytes (%) (Auto) 8 % (0-9) Eosinophils (%) (Auto) 3 % (0-3) Basophils (%) (Auto) 1 % (0-3) Neutrophils # (Auto) 3.4 x10^3/uL (1.8-7.7) Lymphocytes # (Auto) 1.0 x10^3/uL (1.0-4.8) Monocytes # (Auto) 0.4 x10^3/uL (0.0-1.1) Eosinophils # (Auto) 0.2 x10^3/uL (0.0-0.7) Basophils # (Auto) 0.0 x10^3/uL (0.0-0.2) Sodium Level 145 mmol/L (136-145) Potassium Level 3.6 mmol/L (3.5-5.1) Chloride Level 105 mmol/L (98-107) Carbon Dioxide Level 31 mmol/L (21-32) Anion Gap 9 (6-14) Blood Urea Nitrogen 31 mg/dL (7-20) Creatinine 0.4 mg/dL (0.6-1.0) Estimated GFR (Cockcroft-Gault) 159.2 Glucose Level 134 mg/dL (70-99) Calcium Level 9.1 mg/dL (8.5-10.1) Laboratory Tests Test 02/25/19 08:00 02/25/19 08:05 O2 Saturation 96 % (92-99) Arterial Blood pH 7.51 (7.35-7.45) Arterial Blood pCO2 at Patient Temp 38 mmHg (35-46) Arterial Blood pO2 at Patient Temp 78 mmHg (65-108) Arterial Blood HCO3 29 mmol/L (21-28) Arterial Blood Base Excess 6 mmol/L (-3-3) FiO2 30 White Blood Count 5.0 x10^3/uL (4.0-11.0) Red Blood Count 4.22 x10^6/uL (3.50-5.40) Hemoglobin 12.7 g/dL (12.0-15.5) Hematocrit 38.2 % (36.0-47.0) Mean Corpuscular Volume 91 fL (79-100) Mean Corpuscular Hemoglobin 30 pg (25-35) Mean Corpuscular Hemoglobin Concent 33 g/dL (31-37) Red Cell Distribution Width 15.1 % (11.5-14.5) Platelet Count 257 x10^3/uL (140-400) Neutrophils (%) (Auto) 67 % (31-73) Lymphocytes (%) (Auto) 21 % (24-48) Monocytes (%) (Auto) 8 % (0-9) Eosinophils (%) (Auto) 3 % (0-3) Basophils (%) (Auto) 1 % (0-3) Neutrophils # (Auto) 3.4 x10^3/uL (1.8-7.7) Lymphocytes # (Auto) 1.0 x10^3/uL (1.0-4.8) Monocytes # (Auto) 0.4 x10^3/uL (0.0-1.1) Eosinophils # (Auto) 0.2 x10^3/uL (0.0-0.7) Basophils # (Auto) 0.0 x10^3/uL (0.0-0.2) Sodium Level 145 mmol/L (136-145) Potassium Level 3.6 mmol/L (3.5-5.1) Chloride Level 105 mmol/L (98-107) Carbon Dioxide Level 31 mmol/L (21-32) Anion Gap 9 (6-14) Blood Urea Nitrogen 31 mg/dL (7-20) Creatinine 0.4 mg/dL (0.6-1.0) Estimated GFR (Cockcroft-Gault) 159.2 Glucose Level 134 mg/dL (70-99) Calcium Level 9.1 mg/dL (8.5-10.1) Medications Active Scripts Medications Dose Route/Sig Max Daily Dose Days Date Category Dose Instructions Diltiazem Hcl Tablet (Diltiazem Hcl) 30 Mg Tablet 30 Mg PO TID 30 01/14/19 Reported Diltiazem Hcl Tablet (Diltiazem Hcl) 30 Mg Tablet 30 Mg PO TID 01/14/19 Reported Atorvastatin Calcium 80 Mg Tablet 80 Mg PO HS 11/01/18 Reported Cardizem Tablet (Diltiazem Hcl) 30 Mg Tablet 30 Mg PO HS PRN 10/26/18 Reported Enema Ready To Use (Na Phos,M-B/Na Phos,Di-Ba) 133 Ml Enema 133 Ml RC 01/30/17 Reported Acetaminophen 500 Mg Tablet 1 Tab PO Q6HRS 01/30/17 Reported Probiotic Plus & Cranberry Cap (Cran/C/B.coag/Fos/L.acid/L.rha) 1 Each Capsule 1 Each PO BID 01/30/17 Reported Estradiol Transdermal Patch (Estradiol) 1 Each Patch.tdwk 1 Each TD BID WEEKLY 01/30/17 Reported Next dose 06/30/17 Karishma (Norethindrone) 0.35 Mg Tablet 0.35 Mg PO DAILY 01/30/17 Reported Keppra (Levetiracetam) 500 Mg Tablet 750 Mg PO BID 01/30/17 Reported Cardizem Tablet (Diltiazem Hcl) 60 Mg Tablet 60 Mg PO DAILY16 06/12/15 Reported Metoprolol Tartrate 25 Mg Tablet 1 Tab PO BID 12/28/14 Reported Xopenex (Levalbuterol Hcl) 0.63 Mg/3 Ml Vial.neb 1 Vial NEB TID 12/27/14 Reported Valium (Diazepam) 2 Mg Tablet 2 Mg PO TID 10/11/13 Reported Transderm-Scop (Scopolamine) 1 Each Patch.td72 1 Each TD Q3DAYS 07/28/13 Reported Indication: secretions Next dose: 06/30/17 am Nystop (Nystatin) 60 Gm Powder 60 Gm TP PRN 07/28/13 Reported Indication: rash NExt dose: as needed Spiriva (Tiotropium [place]) 18 Mcg Cap.w.dev 18 Mcg IH DAILY 07/28/13 Reported Provigil (Modafinil) 200 Mg Tablet 200 Mg PO DAILY 07/28/13 Reported Paxil (Paroxetine Hcl) 10 Mg/5 Ml Oral.susp 10 Mg PO DAILY 07/28/13 Reported Baclofen 10 Mg Tablet 10 Mg PO TID 07/28/13 Reported Comments cxr 02/24 reviewed, b lat effusion R>L Impression . 1. Acute on chronic hypoxic respiratory failure due to difficulty in replacing the trach as an outpatient and also development of pleural effusion. 2. Status post tracheostomy change to size #4 Shiley cuffed trach, now on a ventilator. 3. Reaccumulation of right-sided pleural effusion and unchanged small left pleural effusion. will probably benefit from another thoracentesis. 5. Advanced multiple sclerosis with multiple recurrent pneumonias in the past and recurrent thoracentesis for pleural effusions. Plan . 1. cont trach, vm during day, trilogy at night, the importance of use discussed 2. Low-grade postop fever, monitor for now. resolved 3. s/p right thoracentesis 02/24 4. follow ABG prn 5. post thoracentesis, tolerated tm 6. elevate hob Discussed with RN and RT. ok to dc home today SHYAM ALCARAZ MD Feb 26, 2019 06:42
[2019-02-26] MEDS: levETIRAcetam 250 MG TABLET PO SCH (08:19)
[2019-02-26] MEDS: diazePAM 2 MG TABLET PO SCH (08:19)
[2019-02-26] MEDS: CYCLOBENZAPRINE 10 MG TABLET. PO SCH (08:19)
[2019-02-26] MEDS: PARoxetine 10 MG TABLET PO SCH (08:20)
[2019-02-26] MEDS: METOPROLOL TART IMMED RELEASE 25 MG TABLET. PO SCH (08:20)
[2019-02-26] MEDS: dilTIAZem HCL 30 MG TABLET PO SCH (08:21)
[2019-02-26] MEDS: IPRATRPIUM/ALBUTEROL 0.5/2.5MG 3 ML NEBU. NEB SCH ×2 (08:41→11:48)
--- NOTE | 2019-02-26 10:07 | PDOC3 ---
Discharge Summary Visit Information Date of Admission: Feb 23, 2019 Date of Discharge: Feb 26, 2019 Final Diagnosis Problems Medical Problems: (1) HTN (hypertension) Status: Chronic (2) Respiratory failure Status: Acute (3) Seizures Status: Acute (4) Trachea displaced Status: Acute Brief Hospital Course Allergies Allergies Coded Allergies Type Severity Reaction Last Updated Verified I S O L A T I O N *CONTACT* Allergy Unknown 11/02/18 Yes No Known Medication Allergies Allergy Unknown 11/02/18 Yes Vital Signs Vital Signs Date Time Temp Pulse Resp B/P (MAP) Pulse Ox O2 Delivery O2 Flow Rate FiO2 02/26/19 09:00 80 15 151/65 (93) 98 Tracheal Collar 8.0 02/26/19 08:00 98.7 98.7 Lab Results Laboratory Tests Test 02/25/19 08:00 02/25/19 08:05 O2 Saturation 96 % (92-99) Arterial Blood pH 7.51 (7.35-7.45) Arterial Blood pCO2 at Patient Temp 38 mmHg (35-46) Arterial Blood pO2 at Patient Temp 78 mmHg (65-108) Arterial Blood HCO3 29 mmol/L (21-28) Arterial Blood Base Excess 6 mmol/L (-3-3) FiO2 30 White Blood Count 5.0 x10^3/uL (4.0-11.0) Red Blood Count 4.22 x10^6/uL (3.50-5.40) Hemoglobin 12.7 g/dL (12.0-15.5) Hematocrit 38.2 % (36.0-47.0) Mean Corpuscular Volume 91 fL (79-100) Mean Corpuscular Hemoglobin 30 pg (25-35) Mean Corpuscular Hemoglobin Concent 33 g/dL (31-37) Red Cell Distribution Width 15.1 % (11.5-14.5) Platelet Count 257 x10^3/uL (140-400) Neutrophils (%) (Auto) 67 % (31-73) Lymphocytes (%) (Auto) 21 % (24-48) Monocytes (%) (Auto) 8 % (0-9) Eosinophils (%) (Auto) 3 % (0-3) Basophils (%) (Auto) 1 % (0-3) Neutrophils # (Auto) 3.4 x10^3/uL (1.8-7.7) Lymphocytes # (Auto) 1.0 x10^3/uL (1.0-4.8) Monocytes # (Auto) 0.4 x10^3/uL (0.0-1.1) Eosinophils # (Auto) 0.2 x10^3/uL (0.0-0.7) Basophils # (Auto) 0.0 x10^3/uL (0.0-0.2) Sodium Level 145 mmol/L (136-145) Potassium Level 3.6 mmol/L (3.5-5.1) Chloride Level 105 mmol/L (98-107) Carbon Dioxide Level 31 mmol/L (21-32) Anion Gap 9 (6-14) Blood Urea Nitrogen 31 mg/dL (7-20) Creatinine 0.4 mg/dL (0.6-1.0) Estimated GFR (Cockcroft-Gault) 159.2 Glucose Level 134 mg/dL (70-99) Calcium Level 9.1 mg/dL (8.5-10.1) Brief Hospital Course CONSULTS: Dr. Groves. PROCEDURES: New tracheostomy placed by Dr. Groves. 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 she was admitted with Acute on chronic hypoxic respiratory failure due to difficulty in replacing the trach as an outpatient and also development of pleural effusion. she is Status post tracheostomy change to size #4 Shiley cuffed trach, now on a ventilator. she developed reaccumulation of right-sided pleural effusion and unchanged small left pleural effusion. underwent right sided thoracentesis. patient with advanced MS. patient to continue trach vm during day, trilogy at night. will be discharged home today PE: HEENT: Head normocephalic, atraumatic. NECK: Supple LUNGS: Clear to auscultation. HEART: RRR, S1, S2 present, pulses intact ABDOMEN: Soft, positive bowel sounds. EXTREMITIES: No cyanosis or edema. NEUROLOGIC: Normal speech, normal tone PSYCHIATRIC: Normal affect, normal mood. SKIN: No ulceration.revision of tracheostomy tube. DISPOSITION: Home. ACTIVITY: As tolerated. DIET: PEG feeds. MEDICATIONS: resume previous home meds. TOTAL TIME: 34 minutes. Discharge Information Condition at Discharge: Improved Follow Up: Weeks (pcpc in 2 weeks) Disposition/Orders: D/C to Home Scheduled Acetaminophen (Acetaminophen) 500 Mg Tablet, 1 TAB PO Q6HRS, #60 (Reported) Entered as Reported by: BRAYAN MCCALLUM on 01/30/17 1630 Last Action: Continued on 02/24/19 101 by NIAL CASTLE Atorvastatin Calcium (Atorvastatin Calcium) 80 Mg Tablet, 80 MG PO HS for FOR CHOLESTEROL, #30 Ref 0 (Reported) Entered as Reported by: Kym Moore on 11/01/18 1054 Last Action: Converted on 02/24/19 101 by NIAL CASTLE Baclofen (Baclofen) 10 Mg Tablet, 10 MG PO TID, (Reported) Entered as Reported by: MCKENNA ESCOBAR on 07/28/13 1506 Last Action: Converted on 02/24/191011 by NIAL CASTLE Cran/C/B.coag/Fos/L.acid/L.rha (Probiotic Plus & Cranberry Cap) 1 Each Capsule, 1 EACH PO BID, (Reported) Entered as Reported by: BRAYAN MCCALLUM on 01/30/17 1630 Last Action: Converted on 02/24/191011 by NIAL CASTLE Diazepam (Valium) 2 Mg Tablet, 2 MG PO TID, (Reported) Entered as Reported by: RENETTA JASMINE on 10/11/13 2148 Last Action: Continued on 02/24/191011 by NIAL CASTLE Diltiazem Hcl (Cardizem Tablet) 60 Mg Tablet, 60 MG PO DAILY16 for FOR HYPERTENSION, #30 Ref 0 (Reported) Entered as Reported by: CARLOTTA BURGOS on 06/12/15 1307 Last Action: Converted on 02/24/191011 by NIAL CASTLE Diltiazem Hcl (Diltiazem Hcl Tablet) 30 Mg Tablet, 30 MG PO TID for FOR HYPERTENSION, #30 Ref 0 (Reported) Entered as Reported by: NAINA BULLOCK RN on 01/14/19 1219 Last Action: Continued on 02/24/191011 by NIAL CASTLE Diltiazem Hcl (Diltiazem Hcl Tablet) 30 Mg Tablet, 30 MG PO TID for A-fib for 30 Days, #90 Ref 0 (Reported) Entered as Reported by: NAINA BULLOCK RN on 01/14/19 1222 Last Action: Continued on 8/8/19 1012 by NIAL CASTLE Estradiol (Estradiol Transdermal Patch) 1 Each Patch.tdwk, 1 EACH TD Bid weekly, (Reported) Next dose 06/30/17 Entered as Reported by: BRAYAN MCCALLUM on 01/30/17 1621 Levalbuterol Hcl (Xopenex) 0.63 Mg/3 Ml Vial.neb, 1 VIAL NEB TID, #72 Ref 2 (Reported) Entered as Reported by: JOSUE RIGGS on 12/27/14 1733 Last Action: Converted on 02/24/19 1012 by NIAL CASTLE Levetiracetam (Keppra) 500 Mg Tablet, 750 MG PO BID, (Reported) Entered as Reported by: BRAYAN MCCALLUM on 01/30/17 1621 Last Action: Continued on 02/24/19 1012 by NIAL CASTLE Metoprolol Tartrate (Metoprolol Tartrate) 25 Mg Tablet, 1 TAB PO BID, #180 Ref 1 (Reported) Entered as Reported by: JAYSON ROY on 12/28/14 1659 Last Action: Continued on 02/24/19 1012 by NIAL CASTLE Modafinil (Provigil) 200 Mg Tablet, 200 MG PO DAILY, (Reported) Entered as Reported by: MCKENNA ESCOBAR on 07/28/13 1507 Last Action: Converted on 02/24/19 1012 by NIAL CASTLE Norethindrone (Karishma) 0.35 Mg Tablet, 0.35 MG PO DAILY, (Reported) Entered as Reported by: BRAYAN MCCALLUM on 01/30/17 1621 Last Action: Converted on 02/24/19 1012 by NIAL CASTLE Paroxetine Hcl (Paxil) 10 Mg/5 Ml Oral.susp, 10 MG PO DAILY, (Reported) Entered as Reported by: MCKENNA ESCOBAR on 07/28/13 1506 Last Action: Converted on 02/24/19 1012 by NIAL CASTLE Scopolamine (Transderm-Scop) 1 Each Patch.td72, 1 EACH TD Q3DAYS, (Reported) Indication: secretions Next dose: 06/30/17 am Entered as Reported by: MCKENNA ESCOBAR on 07/28/13 1515 Last Action: Continued on 02/24/19 1012 by NIAL CASTLE Tiotropium [place] (Spiriva) 18 Mcg Cap.w.dev, 18 MCG IH DAILY, (Reported) Entered as Reported by: MCKENNA ESCOBAR on 07/28/13 1510 Last Action: Converted on 02/24/19 1012 by RIGOBERTO VORA Scheduled PRN Diltiazem Hcl (Cardizem Tablet) 30 Mg Tablet, 30 MG PO HS PRN for ELEVATED BP, SEE COMMENTS, #30 Ref 0 (Reported) Entered as Reported by: ROSS RO RN on 10/26/18 0309 Last Action: Continued on 02/24/19 1012 by RIGOBERTO VORA Nystatin (Nystop) 60 Gm Powder, 60 GM TP for RASH, (Reported) Indication: rash NExt dose: as needed Entered as Reported by: MCKENNA ESCOBAR on 07/28/13 1514 Miscellaneous Medications Na Phos,M-B/Na Phos,Di-Ba (Enema Ready To Use) 133 Ml Enema, 133 ML RC for CONSTIPATION, (Reported) Entered as Reported by: BRAYAN MCCALLUM on 01/30/17 1635 KEMI ALARCON MD Feb 26, 2019 10:07
--- NOTE | 2019-02-26 10:33 | NUR ---
Orders to discharge pt home. Called and notified of d/c orders. will pick her up in the [facility].
--- NOTE | 2019-02-26 12:58 | NUR ---
Pt discharged home accompanied by .
--- NOTE | 2019-02-28 07:54 | RAD ---
Ultrasound-guided right-sided thoracentesis 02/28/2019 7:50 AM Indication: RIGHT PLEURAL FLUID Procedure: Informed consent was obtained. A timeout procedure was performed. Sonographic evaluation of the right chest was performed demonstrating moderate pleural effusion. The right posterior chest was prepped and draped in sterile fashion. 1% lidocaine without epinephrine was administered for local anesthesia. Real-time ultrasonographic guidance was used in passing a 5 Italian LINYWORKSeh catheter into the right pleural space. 1.3 L of serosanguineous pleural fluid was removed. Samples of fluid were sent to the lab for further evaluation per ordering physician request. The catheter was removed and pressure held to achieve hemostasis. A sterile dressing was applied. No immediate complications were identified. The patient tolerated the procedure well. Impression: Right sided ultrasound-guided thoracentesis
== END 2019-02-26 13:30 | disposition home or self-care (01) | DRG 208 ==
LOC: ER 15:25 → 1 WEST ICU 17:31
PROVIDERS: ADMIT Internal Medicine; ATTEND Internal Medicine
PROC: 0B21XFZ Change Tracheostomy Device in Trachea, External Approach (ICD-10-PCS; 2019-02-23)
PROC: 5A1945Z Respiratory Ventilation, 24-96 Consecutive Hours (ICD-10-PCS; principal; 2019-02-23 16:30)
PROC: 0W993ZZ Drainage of Right Pleural Cavity, Percutaneous Approach (ICD-10-PCS; 2019-02-25)
DX: J96.21 Acute and chronic respiratory failure with hypoxia (principal); J90 Pleural effusion, not elsewhere classified; G35 Multiple sclerosis; I10 Essential (primary) hypertension; F32.9 Major depressive disorder, single episode, unspecified; R56.9 Unspecified convulsions; Z93.3 Colostomy status; Z79.899 Other long term (current) drug therapy; Z82.49 Family history of ischemic heart disease and other diseases of the circulatory system; Z87.01 Personal history of pneumonia (recurrent)
CPT/HCPCS: 32555; 36415; 36600; 71045; 80048; 80053; 82805; 85025; 87071; 87075; 87641; 94002; 94003; 94640; 94760; A7015; J1100; J2250; J2405; J2704; J2710; J3010; J3490; J7040; J7620; 99285-25; G0378

== ENCOUNTER → 2019-03-16 | Outpatient (CLI) | payer MEDICARE, BC ==
[2019-02-26 11:49] VITALS: BP 152/70
--- NOTE | 2019-03-16 16:43 | RAD ---
EXAM: CHEST 1 VIEW History: Pleural effusion COMPARISON: 02/24/2019 TECHNIQUE: Single portable radiograph of the chest FINDINGS: Low lung volumes and technique accentuates heart size and pulmonary vascularity. Tracheostomy tube is identified. Moderate prominent bilateral interstitial lung markings likely congestive changes. Moderate bilateral pleural effusions right greater than left identified. IMPRESSION: 1. Moderate congestive changes. 2. Moderate bilateral pleural effusions. Electronically signed by: Kyrie Wagner MD (03/16/2019 4:40 PM) [place] [id number]
== END | disposition home or self-care (01) ==
LOC: RAD 15:51
PROVIDERS: ATTEND Internal Medicine Pulmonary Disease
DX: J90 Pleural effusion, not elsewhere classified (principal); Z93.0 Tracheostomy status
CPT/HCPCS: 71046

== ENCOUNTER 2019-03-24 09:51 | Outpatient (CLI) | payer MEDICARE, BC ==
[2019-03-24] VITALS (8 sets, daily range): BP systolic 131–155; BP diastolic 59–68
[~2019-03-24] VITALS: Ht 157.5 cm; Wt 68.0 kg
[2019-03-24 10:53] LABS: BASO % 0 % (0-3); EOS # 0.1 x10^3/uL (0.0-0.7); EOS % 2 % (0-3); HEMATOCRIT 44.4 % (36.0-47.0); HEMOGLOBIN 14.6 g/dL (12.0-15.5); LYMPH # 1.2 x10^3/uL (1.0-4.8); LYMPH % 21 % (24-48); MEAN CORPUSCULAR HEMOGLOBIN 29 pg (25-35); MEAN CORPUSCULAR HGB CONC 33 g/dL (31-37); MEAN CORPUSCULAR VOLUME 90 fL (79-100); MONO # 0.8 x10^3/uL (0.0-1.1); MONO % 13 % (0-9); NEUT # 3.8 x10^3/uL (1.8-7.7); NEUT % 64 % (31-73); PLATELET COUNT 278 x10^3/uL (140-400); RED BLOOD COUNT 4.96 x10^6/uL (3.50-5.40); RED CELL DISTRIBUTION WIDTH 15.4 % (11.5-14.5); WHITE BLOOD COUNT 5.9 x10^3/uL (4.0-11.0)
[2019-03-24 11:12] LABS: PROTHROMBIN TIME PATIENT 12.4 SEC (11.7-14.0)
--- NOTE | 2019-03-24 14:06 | RAD ---
EXAM: AP View of the chest DATE: 03/24/2019 12:45 PM INDICATION: Thoracentesis COMPARISON: 03/16/2019 FINDINGS/ IMPRESSION: 1. Tracheostomy tube is in stable position. 2. The heart is not enlarged.Mediastinal and hilar contours are stable. 3. Bilateral pleural effusions are seen, significantly decreased on the right. The left pleural effusion is moderate in size, essentially stable to borderline decrease in size. Improved aeration of the right lung. Left lung base airspace opacities may represent atelectasis. 4. No pneumothorax. Electronically signed by: Norm Kan MD (03/24/2019 2:03 PM) [facility]
--- NOTE | 2019-03-24 14:28 | NUR ---
Discharge Note: MINNIE BENZ Discharge instructions and discharge home medications reviewed with Spouse and a copy given. All questions have been answered and understanding verbalized. The following instructions and handouts were given: Thoracentesis Discontinued lines and drains: No IV to dc. Patient discharged to home with via car.
--- NOTE | 2019-03-25 13:41 | RAD ---
Ultrasound-guided right-sided thoracentesis 03/25/2019 11:37 AM Indication: R LUNG PLEURAL EFFUSION Procedure: Informed consent was obtained. A timeout procedure was performed. Sonographic evaluation of the right chest was performed demonstrating moderate pleural effusion. The right posterior chest was prepped and draped in sterile fashion. 1% lidocaine without epinephrine was administered for local anesthesia. Real-time ultrasonographic guidance was used in passing a 5 Cypriot Justyleeh catheter into the right pleural space. 1.1 L of serosanguineous pleural fluid was removed. Samples of fluid were sent to the lab for further evaluation per ordering physician request. The catheter was removed and pressure held to achieve hemostasis. A sterile dressing was applied. No immediate complications were identified. The patient tolerated the procedure well. Impression: Right sided ultrasound-guided thoracentesis
== END 2019-03-24 14:25 | disposition home or self-care (01) ==
LOC: INTRAD 09:51
PROVIDERS: ATTEND Internal Medicine Pulmonary Disease
DX: J90 Pleural effusion, not elsewhere classified (principal); Z91.041 Radiographic dye allergy status
CPT/HCPCS: 32555; 36415; 71045; 85025; 85610

== ENCOUNTER → 2019-04-27 | Outpatient (CLI) | payer MEDICARE, BC ==
[2019-03-24 14:05] VITALS: BP 155/66
--- NOTE | 2019-04-27 14:24 | RAD ---
EXAM: PA and Lateral Views of the Chest DATE: 04/27/2019 12:00 AM INDICATION: Shortness of air, pleural effusion COMPARISON: 03/24/2019, 03/16/2019 FINDINGS: Heart is mildly enlarged. Moderate bilateral pleural effusions. Associated bilateral airspace opacities are seen predominantly in the lower lobes. Tracheostomy tube is in stable position. No pneumothorax. IMPRESSION: Moderate bilateral pleural effusions with associated lung base opacities, possibly atelectasis or consolidation. Electronically signed by: Norm Kan MD (04/27/2019 2:21 PM) [id number]
== END | disposition home or self-care (01) ==
LOC: RAD 12:57
PROVIDERS: ATTEND Internal Medicine Pulmonary Disease
DX: J90 Pleural effusion, not elsewhere classified (principal)
CPT/HCPCS: 71046

== ENCOUNTER → 2019-05-23 | Outpatient (CLI) | payer MEDICARE, BC ==
[2019-03-24 14:05] VITALS: BP 155/66
--- NOTE | 2019-05-23 14:37 | RAD ---
EXAM: CHEST 2 VIEWS. HISTORY: Pleural effusions. COMPARISON: 04/27/2019. FINDINGS: Frontal and lateral views of the chest are obtained. A tracheostomy appliance is in expected position. There are small to moderate bilateral pleural effusions. These are stable to mildly increased. There is atelectasis in both lung bases. There is no pneumothorax. The heart is mildly enlarged. IMPRESSION: 1. Small to moderate bilateral pleural effusions appear mildly decreased. Electronically signed by: Linda Lockhart MD (05/23/2019 2:34 PM) [facility]
== END | disposition home or self-care (01) ==
LOC: RAD 12:30
PROVIDERS: ATTEND Internal Medicine Pulmonary Disease
DX: J90 Pleural effusion, not elsewhere classified (principal); J98.11 Atelectasis; I51.7 Cardiomegaly
CPT/HCPCS: 71046

== ENCOUNTER → 2019-06-22 | Outpatient (CLI) | payer MEDICARE, BC ==
[2019-03-24 14:05] VITALS: BP 155/66
--- NOTE | 2019-06-22 16:06 | RAD ---
EXAM: Chest, 2 views. HISTORY: Pleural effusion. COMPARISON: 05/23/2019 FINDINGS: 2 views of the chest are obtained. There are stable moderate bilateral pleural effusions with diffuse lower lobe predominant interstitial infiltrate or atelectasis. There is a stable prominent cardiac silhouette. There is no pneumothorax. There is a tracheostomy device overlying the thoracic inlet. IMPRESSION: No significant change in moderate pleural effusions and diffuse lower lobe predominant interstitial infiltrate or atelectasis. Electronically signed by: Shirley Montelongo MD (06/22/2019 4:03 PM) [place] [id number]
== END ==
LOC: RAD 15:03
PROVIDERS: ATTEND Internal Medicine Pulmonary Disease
DX: J90 Pleural effusion, not elsewhere classified (principal); I11.0 Hypertensive heart disease with heart failure; E78.5 Hyperlipidemia, unspecified; E11.9 Type 2 diabetes mellitus without complications; F41.9 Anxiety disorder, unspecified; I48.91 Unspecified atrial fibrillation; F32.9 Major depressive disorder, single episode, unspecified; E78.00 Pure hypercholesterolemia, unspecified; Z90.5 Acquired absence of kidney
CPT/HCPCS: 71046

== ENCOUNTER → 2019-07-27 | Outpatient (CLI) | payer MEDICARE, BC ==
[2019-07-06 13:17] VITALS: BP 106/47
[~2019-07-27] MED LIST changes: +ACET500T68 PEG; -ACET500T68 PO; +ASCO500C PEG; +ATORVASTATIN CA80 MG PEG; -ATORVASTATIN CA80 MG PO; +AZIT250T PEG; +BACL10TA PEG; -BACL10TA PO; +BISA10SU55 RC; +CHOL400T6 PEG; +CRAN1CAP13 PEG; -CRAN1CAP13 PO; +DIAZ2TAB PEG; -DIAZ2TAB PO; +DILT30TA PEG; +FAMO-63 PEG; +LACT1CAP29 PEG; +LEVE500T56 PEG; +METO25TA4 PEG; -METO25TA4 PO; +MODA200T31 PEG; -MODA200T31 PO; +MULT-114 PO; +PARO10OR3 PEG; -PARO10OR3 PO; +POLY119P19 PEG; +SPIR25TA5 PEG; +XOPENEX0.63 MG/3 IH; +baclofen pump MC
--- NOTE | 2019-07-27 16:48 | RAD ---
AP and lateral chest. HISTORY: Pleural effusion AP and lateral views were taken of the chest. There are large bilateral pleural effusions. There has been no significant change compared to the study from June 22, 2019. The heart is enlarged. IMPRESSION: 1. Bilateral effusions with little change. Electronically signed by: Loki Ayala MD (07/27/2019 4:45 PM) [facility]
== END | disposition home or self-care (01) ==
LOC: RAD 15:22
PROVIDERS: ATTEND Internal Medicine Pulmonary Disease
DX: J90 Pleural effusion, not elsewhere classified (principal); I51.7 Cardiomegaly
CPT/HCPCS: 71046

== ENCOUNTER → 2019-09-27 | Outpatient (CLI) | payer MEDICARE, BC ==
[2019-07-06 13:17] VITALS: BP 106/47
--- NOTE | 2019-09-28 04:04 | RAD ---
AP and lateral chest. HISTORY: Pleural effusions AP and lateral views the chest were compared with a study from July 27. The heart is enlarged. There are moderate bilateral effusions. There is been little change from the prior study. There is atelectasis in the lung bases. IMPRESSION: 1. Moderate bilateral effusions. 2. Little change. Electronically signed by: Loki Ayala MD (09/28/2019 4:01 AM) [id number]
== END ==
LOC: RAD 15:11
PROVIDERS: ATTEND Internal Medicine Pulmonary Disease
DX: J90 Pleural effusion, not elsewhere classified (principal); J98.11 Atelectasis; I51.7 Cardiomegaly
CPT/HCPCS: 71046

== ENCOUNTER → 2020-06-01 | Outpatient (CLI) | payer MEDICARE, BC ==
[2019-07-06 13:17] VITALS: BP 106/47
[~2020-06-01] MED LIST changes: +NORE0.3550 PO; -NORE0.356 PO
== END ==
LOC: LAB 13:30
PROVIDERS: ATTEND Surgery
DX: Z01.812 Encounter for preprocedural laboratory examination (principal); Z20.828 Contact with and (suspected) exposure to other viral communicable diseases
CPT/HCPCS: U0003

== ENCOUNTER 2020-06-05 09:18 | Day surgery (SDC) | payer MEDICARE, BC ==
[~2020-06-05 09:18] MED LIST changes: +BUPIVACAINE-EPI 0.5%-1:200000 MPF 30 ML VIAL. INJ ONE; +FLUC100T4 PO; +HYDROmorphone 2 MG/ML VIAL IV PRN; +IV RINGERS,LACTATED 1000ML 1,000 ML IV SCH; +MORPHINE SULFATE 2 MG/ML VIAL. IV PRN; +ONDANSETRON PF 4 MG/2 ML VIAL. IV PRN; +PROCHLORPERAZINE 10 MG/2 ML VIAL. IV PRN; +fentaNYL PF VIAL 100 MCG/2 ML VIAL IV PRN
--- NOTE | 2020-06-05 09:51 | PDOC ---
SURGICAL PROGRESS NOTE DATE: 06/05/20 TIME: 09:49 Subjective Pre-Op Note 69 yo F with respiratory failure. TO OR for tracheostomy change and G-tube change. Will also obtain Renal US per pt's 's request. R/R/B/A d/w pt's supportive . Office note H&P reviewed and unchanged. Justicifation of Admission Dx: Justifications for Admission: Justification of Admission Dx: N/A JUNIE KO MD Jun 05, 2020 09:51
[2020-06-05] MEDS ORDERED: DIAZ5TAB4 PO (10:07)
[2020-06-05] MEDS ORDERED: IOHEXOL 300 MG/ML 50 ML VIAL. ONE (10:44)
--- NOTE | 2020-06-05 11:46 | PDOC4 ---
OPERATIVE NOTE Date: Date: Jun 05, 2020 Pre-Op Diagnosis: MS, need for tracheostomy change and G-tube change (previous difficult to perform in office) Post-Op Diagnosis: same Procedure Performed: Tracheostomy change (6 shiley cuffed), G-tube changed (20 F), confirmed by contrast KUB Surgeon: Sanjiv Ko Anesthesia Type: MAC Blood Loss: minimal Specimans Obtained: none Findings: normal anatomy Complications: none Operative Note: After obtaining informed consent, patient was taken to OR, induced under MAC. Tracheostomy changed without difficulty and cuff inflated. Gastrostomy tube changed without difficulty and balloon inflated. Contrast injected via G-tube demonstrated intragastric placement without obvious extravasation. Dressings placed. Patient tolerated procedures well and sent to PACU in stable condition. All counts correct. JUNIE KO MD Jun 05, 2020 11:46
[2020-06-05 12:45] VITALS: BP 139/39
--- NOTE | 2020-06-05 16:21 | RAD ---
KUB for evaluation of gastrostomy tube placed in OR FINDINGS: There is a percutaneous gastrostomy tube which appears appropriately positioned. There is contrast within the stomach as well as in the proximal small bowel. No evidence of contrast extravasation is observed. There is a lead or wire projecting over the right hemiabdomen. There is stool in the rectum. IMPRESSION: 1. Gastrostomy tube with no evidence of contrast extravasation. Electronically signed by: Tushar Holland MD (06/05/2020 4:18 PM) [id number]
--- NOTE | 2020-06-05 16:22 | RAD ---
Examination: RENAL COMPLETE BILATERAL History: Reason: RENAL INSUFFICIENCY/ COORDINATE WITH SURGERY / Spl. Instructions: / History: Comparison/Correlation: None Findings: Renal ultrasound exam was performed. Left kidney measures 10.1 cm x 5 cm x 5.1 cm. Left renal superior pole cyst measuring 1.2 cm diameter present. Lower pole cyst measuring 1.8 cm diameter also seen. Subtle internal echoes present within the cysts . Right nephrectomy noted. Urinary bladder is decompressed with Smalls catheter in place. Impression: No left hydronephrosis. Small left renal cysts. No aggressive features although internal echoes noted. Interval follow-up by ultrasound 1 year to assess stability is recommended. Electronically signed by: Jad Tripathi MD (06/05/2020 4:20 PM) [facility]
== END 2020-06-05 13:58 | disposition home or self-care (01) ==
LOC: SURG 09:18
PROVIDERS: ATTEND Surgery
DX: G35 Multiple sclerosis (principal); R53.2 Functional quadriplegia; I10 Essential (primary) hypertension; E78.00 Pure hypercholesterolemia, unspecified; I48.91 Unspecified atrial fibrillation; F32.9 Major depressive disorder, single episode, unspecified; Z93.0 Tracheostomy status; Z79.899 Other long term (current) drug therapy; Z98.890 Other specified postprocedural states; Z82.49 Family history of ischemic heart disease and other diseases of the circulatory system
CPT/HCPCS: 31502; 43762; 74018; 76770; Q9967

== ENCOUNTER 2020-09-07 02:00 | Emergency (ER) | payer MEDICARE, BC ==
[~2020-09-07] VITALS: Ht 160 cm; Wt 70.3 kg
[~2020-09-07 02:00] MED LIST changes: -BUPIVACAINE-EPI 0.5%-1:200000 MPF 30 ML VIAL. INJ ONE; +DIAZ5TAB4 PO; -HYDROmorphone 2 MG/ML VIAL IV PRN; -IV RINGERS,LACTATED 1000ML 1,000 ML IV SCH; -MORPHINE SULFATE 2 MG/ML VIAL. IV PRN; -ONDANSETRON PF 4 MG/2 ML VIAL. IV PRN; -PROCHLORPERAZINE 10 MG/2 ML VIAL. IV PRN; -fentaNYL PF VIAL 100 MCG/2 ML VIAL IV PRN
--- NOTE | 2020-09-07 02:26 | PHYS DOC ---
Past Medical History Past Medical History: Hypertension, Other Additional Past Medical Histor: MS, respiratory failure, tracheostomy, excess secretions, possible seizures Past Surgical History: Other Additional Past Surgical Histo: feeding tube,baclofen pump,flap surgeries,tracheostomy,COLOSTOMY, 1 kidney, Smoking Status: Never Smoker Alcohol Use: None Drug Use: None General Adult EDM: Chief Complaint: GTUBE REPLACEMENT/MALFUNCTION HPI: HPI: Patient is a 69 year old female who presents to ED for PEG tube replacement. Patient has a history of MS and is currently nonverbal. All information was obtained via EMS. The patient was at home where she lives with her who was changing her position in bed when the PEG tube became dislodged. She was brought to the ED by EMS in order to have it replaced. Review of Systems: Review of Systems: Unable to be obtained due to patient's nonverbal status Allergies: Allergies: Allergies Coded Allergies Type Severity Reaction Last Updated Verified I S O L A T I O N *CONTACT* Allergy Unknown 06/01/20 Yes No Known Medication Allergies Allergy Unknown 06/01/20 Yes Physical Exam: PE: Constitutional: Well developed, well nourished, no acute distress, non-toxic appearance HENT: Normocephalic, atraumatic Eyes: PERRL, EOMI, conjunctiva normal, no discharge Neck: Normal range of motion, no tenderness, supple Lungs & Thorax: No respiratory distress, equal chest rise and fall Abdomen: Soft, no tenderness Skin: Warm, dry, no erythema, no rash Back: No tenderness, no CVA tenderness Extremities: No tenderness, ROM intact, no edema Neurologic: Alert and oriented X 3, normal motor function, normal sensory function, no focal deficits noted Psychologic: Affect normal, judgment normal EKG: EKG: [] Radiology/Procedures: Radiology/Procedures: PROCEDURE: KUB AP abdomen radiograph 09/07/2020 CLINICAL HISTORY: Post placement of a gastrostomy tube. An AP portable digital radiograph of the abdomen was obtained after injecting contrast through the patient's gastrostomy tube. A gastrostomy tube is seen with its tip tip overlying the body of the stomach. Contrast is seen within the majority of the stomach and the proximal duodenum. No extravasation of contrast is noted. The abdominal bowel gas pattern is nonobstructive. Degenerative changes are seen involving the lower lumbar spine. Surgical clips overlie the right upper quadrant abdomen consistent with cholecystectomy. IMPRESSION: The gastrostomy tube is within the body of the stomach. Electronically signed by: Nicanor Ritter MD (09/07/2020 2:41 AM) [id number] Course & Med Decision Making: Course & Med Decision Making Pertinent Labs and Imaging studies reviewed. (See chart for details) Patient is a 69-year-old female who presented for PEG tube replacement. She was brought to the ED by EMS and is currently nonverbal due to MS. the PEG tube was replaced without complication and imaging confirmed its appropriate location. Patient stable for discharge with outpatient follow-up with PCP. Discussed findings and plan with patient, who acknowledges understanding and agreement. Dragon Disclaimer: [employer] Disclaimer: This electronic medical record was generated, in whole or in part, using a voice recognition dictation system. Additional Procedures Additional Procedures : Additional Procedures: gastric tube replacement Progress Verbal consent obtained. Time out performed. Hand hygiene utilized. An 18 Belarusian NANDO gastrostomy feeding tube was utilized for this procedure. Lubricant was applied to the tip of the tube and it was inserted percutaneously into the stomach. 10 mL of saline was used to inflate the balloon, and the tube was secured in place using the outer locking mechanism. Patient tolerated procedure well and without difficulty. Departure Departure Impression: Primary Impression: Encounter for feeding tube placement Disposition: 01 DC HOME SELF CARE/HOMELESS Condition: STABLE Referrals: JUNIE CAMPOS MD (PCP) ZOFIA ANTHONY MD Patient Instructions: Gastric Tube Replacement NAINA SEAY DO Sep 07, 2020 02:26
[2020-09-07] MEDS ORDERED: IOHEXOL 240 MG/ML 50ML VIAL. PO ONE (02:30)
[2020-09-07] MEDS ORDERED: CONTRAST GIVEN. MC PRN (02:30)
--- NOTE | 2020-09-07 02:44 | RAD ---
AP abdomen radiograph 09/07/2020 CLINICAL HISTORY: Post placement of a gastrostomy tube. An AP portable digital radiograph of the abdomen was obtained after injecting contrast through the pa tient's gastrostomy tube. A gastrostomy tube is seen with its tip tip overlying the body of the stoma ch. Contrast is seen within the majority of the stomach and the proximal duodenum. No extravasation o f contrast is noted. The abdominal bowel gas pattern is nonobstructive. Degenerative changes are seen involving the lower lumbar spine. Surgical clips overlie the right upper quadrant abdomen consistent with cholecystectomy. IMPRESSION: The gastrostomy tube is within the body of the stomach. Electronically signed by: Nicanor Ritter MD (09/07/2020 2:41 AM) [id number]
[2020-09-07 02:47] VITALS: BP 147/71
== END 2020-09-07 03:34 | disposition home or self-care (01) ==
LOC: ER 02:00
DX: K94.23 Gastrostomy malfunction (principal); I10 Essential (primary) hypertension; Z91.041 Radiographic dye allergy status; Y83.8 Other surgical procedures as the cause of abnormal reaction of the patient, or of later complication, without mention of misadventure at the time of the procedure; Y92.89 Other specified places as the place of occurrence of the external cause
CPT/HCPCS: 43762; 74018; 99284; Q9966

== ENCOUNTER → 2020-12-26 | Outpatient (CLI) | payer MEDICARE, BC ==
[~2020-12-26] MED LIST changes: -LACT1CAP29 PEG; +LACT1CAP37 PEG
--- NOTE | 2020-12-26 14:48 | RAD ---
AP and Lateral Views of the Chest 12/26/2020 2:27 PM Indication: Reason: SHORTNESS OF BREATH. / Spl. Instructions: / History: Comparison: Chest radiograph September 24, 2019 Findings: There is moderate bilateral pleural effusions with underlying atelectasis. No pneumothorax is seen. Tracheostomy noted. No acute osseous changes are identified in the interim. IMPRESSION: Moderate bilateral pleural effusions with underlying atelectasis Electronically signed by: Nicolas Charles MD (12/26/2020 2:45 PM) [id number]
== END ==
LOC: RAD 14:14
PROVIDERS: ATTEND Internal Medicine Pulmonary Disease
DX: J90 Pleural effusion, not elsewhere classified (principal); J98.11 Atelectasis
CPT/HCPCS: 71046

== ENCOUNTER → 2021-05-08 | Outpatient (CLI) | payer MEDICARE, BC ==
[2021-04-05 15:00] VITALS: BP 125/70
[~2021-05-08] MED LIST changes: +AMOX400S PEG; +ASPI-630 PO; +IPRA3AMP29 NEB; +LOSA25TA PO; +MERO1VIA24 IV; -SCOP1PAT11 TD; +SCOP1PAT12 TD
--- NOTE | 2021-05-08 17:14 | RAD ---
US RENAL UNILAT History: Reason: NEUROGENIC BLADDER / Spl. Instructions: / History: Comparison: June 05, 2020 Procedure: Transabdominal ultrasound images are obtained of the left kidney and bladder. Findings: Prior right nephrectomy. Left kidney: measures 14.1 x 4.7 x 5.8 cm. Left inferior renal cyst measures 3.3 x 2.4 x 2.9 cm, inc reased compared to prior previously measured 1.8 cm. Previously seen left superior renal cyst is no l onger identified. No hydronephrosis. Urinary bladder: Decompressed urinary bladder with Smalls catheter. Aorta and IVC not well seen due to overlying structures. IMPRESSION: 1. Increased complicated left inferior renal cyst, may represent hemorrhagic/proteinaceous cyst. Rec ommend ultrasound follow-up. Alternatively, renal protocol CT or MRI can definitively evaluate. Electronically signed by: James Ambrosio DO (05/08/2021 5:12 PM) [id number]
== END ==
LOC: US 15:04
PROVIDERS: ATTEND Urology
DX: N28.1 Cyst of kidney, acquired (principal); N31.2 Flaccid neuropathic bladder, not elsewhere classified
CPT/HCPCS: 76775

== ENCOUNTER → 2021-06-03 | Outpatient (CLI) | payer MEDICARE, BC ==
[2021-04-05 15:00] VITALS: BP 125/70
--- NOTE | 2021-06-03 14:37 | RAD ---
EXAM: Chest, 2 views. HISTORY: Pleural effusion. COMPARISON: 03/26/2021 FINDINGS: 2 views of chest are obtained. There has been slight interval decrease in a moderate right pleural effusion. There is a stable small left pleural effusion status post pleural drainage catheter removal. There is stable partial bilateral lower lobe consolidation. There is no pneumothorax. There is suspected linear atelectasis or scarring within the right upper lobe. There is a prominent cardia c silhouette. There is a tracheostomy device overlying the upper thorax. IMPRESSION: 1. Stable moderate right and small left pleural effusions and diffuse interstitial infiltrate with pa rtial bilateral lower lobe consolidation. 2. Interval left pleural drainage catheter removal. Electronically signed by: Shirley Montelongo MD (06/03/2021 2:34 PM) [id number]
== END ==
LOC: RAD 13:49
PROVIDERS: ATTEND Internal Medicine Pulmonary Disease
DX: J90 Pleural effusion, not elsewhere classified (principal); R91.8 Other nonspecific abnormal finding of lung field
CPT/HCPCS: 71046

== ENCOUNTER 2021-06-21 15:09 | Emergency (ER) | payer MEDICARE, BC ==
[~2021-06-21] VITALS: Ht 162.6 cm; Wt 79.5 kg
[~2021-06-21 15:09] MED LIST changes: -ASCO60LO PO; +ASCO60LO5 PO
[2021-06-21 15:15] VITALS: BP 148/67
--- NOTE | 2021-06-21 16:12 | PHYS DOC ---
Past Medical History Past Medical History: A-Fib, Dementia, Depression, Hypertension, Seizure, Other Additional Past Medical Histor: MS, COVID, Empyema, quadriplegia Past Surgical History: Other Additional Past Surgical Histo: feeding tube,baclofen pump,flap surgeries,tracheostomy,COLOSTOMY, 1 kidney, Smoking Status: Never Smoker Alcohol Use: None Drug Use: None General Adult EDM: Chief Complaint: URINE CATHETER PROBLEM HPI: HPI: Patient is a 70 year old female who presents with here after patient's and home health aide the patient about the noticed that there is blood coming out of her Smalls catheter. The home health nurse went to irrigate the catheter but did not get any return. They are worried that she could possibly have a clot in the catheter tubing. Patient's states that the patient does not usually have this much blood in her urine. He states she does have a mass in the 1 kidney that she does have. Patient is in her end stages of MS and has a Smalls catheter, tracheostomy, colectomy, feeding tube. She also has a history of dementia, Covid, empyema, quadriplegia, A. fib, hypertension, seizure, baclofen pump. states that she also needs some suctioning if respiratory can do that here for him as he states he is hearing some clogging no ises at the tracheostomy itself. Patient states he is able to do this at home and does this frequently. Patient denies the patient having fever, vomiting, diarrhea, respiratory distress. Patient unable to communicate and is nonverbal at this time. Review of Systems: Review of Systems: Constitutional: Denies fever or chills. [] Eyes: Denies change in visual acuity. [] HENT: Denies nasal congestion or sore throat. [] Respiratory: Denies cough or shortness of breath. [] Cardiovascular: Denies chest pain or edema. [] GI: Denies abdominal pain, nausea, vomiting, bloody stools or diarrhea. [] : Denies dysuria. + Hematuria [] Musculoskeletal: Denies back pain or joint pain. [] Integument: Denies rash. [] Neurologic: Denies headache, focal weakness or sensory changes. [] Endocrine: Denies polyuria or polydipsia. [] Lymphatic: Denies swollen glands. [] Psychiatric: Denies depression or anxiety. [] Heart Score: C/O Chest Pain: No Allergies: Allergies: Allergies Coded Allergies Type Severity Reaction Last Updated Verified I S O L A T I O N *CONTACT* Allergy Unknown 06/01/20 Yes No Known Medication Allergies Allergy Unknown 06/01/20 Yes Physical Exam: PE: Constitutional: Well developed, well nourished, no acute distress, non-toxic appearance. [] HENT: Normocephalic, atraumatic, bilateral external ears normal, oropharynx moist, no oral exudates, nose normal. [] Eyes: PERRLA, EOMI, conjunctiva normal, no discharge. [] Neck: Normal range of motion, no tenderness, supple, no stridor. [] Cardiovascular:Heart rate regular rhythm, no murmur [] Lungs & Thorax: Bilateral breath sounds clear to auscultation [] Abdomen: Bowel sounds normal, soft, no tenderness, no masses, no pulsatile masses. Hematuria [] Skin: Warm, dry, no erythema, no rash. [] Back: No tenderness, no CVA tenderness. [] Extremities: No tenderness, no cyanosis, no clubbing, ROM intact, no edema. [] Neurologic: Alert and oriented X 3, normal motor function, normal sensory function, no focal deficits noted. [] Psychologic: Affect normal, judgement normal, mood normal. [] Current Patient Data: Vital Signs: Vital Signs Date Time Temp Pulse Resp B/P (MAP) Pulse Ox O2 Delivery O2 Flow Rate FiO2 06/21/21 15:15 98.2 78 18 148/67 (94) 100 Tracheal Collar 2.0 98.2 EKG: EKG: [] Radiology/Procedures: Radiology/Procedures: [] Course & Med Decision Making: Course & Med Decision Making Pertinent Labs and Imaging studies reviewed. (See chart for details) See HPI. Patient is alert but unresponsive as this is her normal. is at bedside. Smalls catheter to be changed. Abdomen soft and nontender. Dr. Partida did a bedside ultrasound and states the bladder is decompressed. I will test her urine for infection. Respiratory did come and suction the patient and states she had some mucus in her throat but her tracheostomy is very clean. Patient's vital signs within normal limits. Smalls catheter is changed by RN without complication. Catheter is draining. Patient be placed on antibiotics and to follow-up with primary care physician. [] Thai Disclaimer: Dragon Disclaimer: This electronic medical record was generated, in whole or in part, using a voice recognition dictation system. Departure Departure Impression: Primary Impression: UTI (urinary tract infection) Qualified Codes: T83.511A - Infection and inflammatory reaction due to indwelling urethral catheter, initial encounter; N39.0 - Urinary tract infection, site not specified Disposition: HOME / SELF CARE / HOMELESS Condition: STABLE Referrals: JUNIE CAMPOS MD (PCP) Patient Instructions: Catheter-Associated Urinary Tract Infection FAQs - MICHEL, Urinary Tract Infection Additional Instructions: Follow-up with primary care doctor soon as possible. Take antibiotic as prescribed. If symptoms worsen or patient begins running fever or vomiting return emergency room. Scripts Cephalexin (KEFLEX) 500 Mg Capsule 1 CAP PO TID for 7 Days, #21 CAP Prov: EILEEN GARCIA APRN 06/21/21 EILEEN GARCIA APRN Jun 21, 2021 16:12
[2021-06-21 17:27] LABS: CLARITY,URINE BLOODY; COLOR,URINE RED
[2021-06-21 17:29] LABS: RBC,URINE TNTC /HPF (0-2)
[2021-06-21 17:30] LABS: BACTERIA,URINE FEW /HPF (0-FEW); WBC,URINE TNTC /HPF (0-4)
[2021-06-21] MEDS ORDERED: CEPH500C PO (17:54)
== END 2021-06-21 19:35 | disposition home or self-care (01) ==
LOC: ER 15:09
DX: T83.511A Infection and inflammatory reaction due to indwelling urethral catheter, initial encounter (principal); I48.91 Unspecified atrial fibrillation; F03.90 Unspecified dementia, unspecified severity, without behavioral disturbance, psychotic disturbance, mood disturbance, and anxiety; I10 Essential (primary) hypertension; Z93.3 Colostomy status; Z93.0 Tracheostomy status; Y84.6 Urinary catheterization as the cause of abnormal reaction of the patient, or of later complication, without mention of misadventure at the time of the procedure; Y92.89 Other specified places as the place of occurrence of the external cause
CPT/HCPCS: 51702; 81001; 87086; 99284; A4314

== ENCOUNTER 2021-06-25 15:30 | Emergency (ER) | payer MEDICARE, BC ==
[~2021-06-25] VITALS: Ht 160 cm; Wt 78.0 kg
[~2021-06-25 15:30] MED LIST changes: +CEPH500C PO
[2021-06-25 16:22] VITALS: BP 148/60
--- NOTE | 2021-06-25 16:26 | PHYS DOC ---
Past Medical History Past Medical History: A-Fib, Dementia, Depression, Hypertension, Seizure, Other Additional Past Medical Histor: MS, COVID, Empyema, quadriplegia Past Surgical History: Other Additional Past Surgical Histo: feeding tube,baclofen pump,flap surgeries,tracheostomy,COLOSTOMY, 1 kidney, Smoking Status: Never Smoker Alcohol Use: None Drug Use: None General Adult EDM: Chief Complaint: GTUBE REPLACEMENT/MALFUNCTION HPI: HPI: This patient is brought in today by her for evaluation of proper G-tube placement. She has had a G-tube for several years. He was cleaning underneath the G-tube site, and had just given her a tube feed, when he accidentally pulled the tube out. He did not pull it out completely, the bulb was seen, but he was able to easily replace it, inflate the bulb. He has flushed it without difficulty. He was concerned that he may have inadvertently misplaced it. He wants to check placement. No reported fever, vomiting. No changes in stool habits, no change in output from ostomy bag. No redness or swelling or drainage from her stoma site on her G-tube. The patient is unable to articulate any details to me, as she is nonverbal. Review of Systems: Review of Systems: Systems as per HPI, no ability to obtain specific systems from the patient directly secondary to chronic clinical condition Heart Score: C/O Chest Pain: N/A Risk Factors: Risk Factors: DM, Current or recent (<one month) smoker, HTN, HLP, family history of CAD, obesity. Risk Scores: Score 0 - 3: 2.5% MACE over next 6 weeks - Discharge Home Score 4 - 6: 20.3% MACE over next 6 weeks - Admit for Clinical Observation Score 7 - 10: 72.7% MACE over next 6 weeks - Early Invasive Strategies Allergies: Allergies: Allergies Coded Allergies Type Severity Reaction Last Updated Verified I S O L A T I O N *CONTACT* Allergy Unknown 06/01/20 Yes No Known Medication Allergies Allergy Unknown 06/01/20 Yes Physical Exam: PE: Constitutional: Well developed, well nourished, no acute distress, non-toxic appearance. She is chronically ill-appearing. HENT: Normocephalic, atraumatic, Dukas membranes are moist. Eyes: Sclera clear and anicteric. Neck: Trachea midline. Cardiovascular:Heart rate regular rhythm, +2 radial and +2 dorsalis pedis pulses bilaterally. Lungs & Thorax: Bilateral breath sounds clear to auscultation [] Abdomen: Abdomen soft, nondistended, no apparent tenderness to palpation. G- tube site is clean, dry, intact without warmth or erythema. Skin: Warm, dry, no erythema, no rash. [] Back: No tenderness, no CVA tenderness. [] Extremities: No tenderness, no cyanosis, no clubbing, ROM intact, no edema. [] Neurologic: She is awake. No verbal response (baseline). No facial asymmetry. Unable to follow commands. Diffuse and symmetric motor weakness. Psychologic: Affect is flat. EKG: EKG: [] Radiology/Procedures: Radiology/Procedures: IMAGING REPORT Signed PATIENT: MINNIE BENZ ACCOUNT: [id number] : 1950 LOCATION: ER AGE: 70 SEX: F EXAM STATUS: REG ER ORD. PHYSICIAN: EMILY CARRERA DO REASON: G TUBE PLACEMENT/ 40cc OMNIPAQUE 240MGI/ML PROCEDURE: KUB EXAM: XR ABDOMEN 1V 06/25/2021 4:43 PM CLINICAL INDICATION: G-tube placement COMPARISON: Abdominal radiograph 09/07/2020 TECHNIQUE: AP supine view the abdomen FINDINGS: Contrast injected through the patient's gastrostomy tube is seen within the stomach. The gastrostomy tube is within the distal stomach. No contrast extravasation noted. There are probable additional tubes or catheters projecting over the right hemiabdomen and lumbar spine. Bowel gas pattern is nonspecific. IMPRESSION: Gastrostomy tube is within the distal stomach. Electronically signed by: Micheline Velasquez MD (06/25/2021 5:21 PM) [id number] DICTATED and SIGNED BY: MICHELINE VELASQUEZ MD DATE: 06/25/21 [id number] 0 Course & Med Decision Making: Course & Med Decision Making Pertinent Labs and Imaging studies reviewed. (See chart for details) I discussed the findings, differential diagnosis and plan of care with the patient and her . G-tube appears to be in appropriate position. Flushes easily without difficulty. No indication for further invasive exams, imaging. No indication to change G-tube at this time, as it is functional. I told the patient's to follow-up with primary care physician as well as with her surgeon, if needed, for further evaluation of G-tube issues. He is comfortable to plan for discharge home. Thai Disclaimer: Dragon Disclaimer: This electronic medical record was generated, in whole or in part, using a voice recognition dictation system. Departure Departure Impression: Primary Impression: Gastrostomy tube in place Disposition: 01 HOME / SELF CARE / HOMELESS Condition: STABLE Referrals: JUNIE CAMPOS MD (PCP) Patient Instructions: Gastrostomy Tube, Adult Additional Instructions: Your tube appears to be in the appropriate position, within the stomach. Return to the ER for any fever, redness, if the tube will not flush appropriately, if you notice any pain or swelling in her abdomen, any vomiting or for any other concerns. Continue using your G-tube as you would normally use it. Follow-up with your primary care doctor. EMILY CARRERA DO Jun 25, 2021 16:26
[2021-06-25] MEDS ORDERED: IOHEXOL 240 MG/ML 50ML VIAL. ONE (17:17)
--- NOTE | 2021-06-25 17:23 | RAD ---
EXAM: XR ABDOMEN 1V 06/25/2021 4:43 PM CLINICAL INDICATION: G-tube placement COMPARISON: Abdominal radiograph 09/07/2020 TECHNIQUE: AP supine view the abdomen FINDINGS: Contrast injected through the patient's gastrostomy tube is seen within the stomach. The g astrostomy tube is within the distal stomach. No contrast extravasation noted. There are probable add itional tubes or catheters projecting over the right hemiabdomen and lumbar spine. Bowel gas pattern is nonspecific. IMPRESSION: Gastrostomy tube is within the distal stomach. Electronically signed by: Micheline Velasquez MD (06/25/2021 5:21 PM) [id number]
[2021-06-25] MEDS ORDERED: IOHEXOL 240 MG/ML 50ML VIAL. PO ONE (17:30)
[2021-06-25] MEDS ORDERED: CONTRAST GIVEN. MC PRN (17:30)
== END 2021-06-25 18:23 | disposition home or self-care (01) ==
LOC: ER 15:30
DX: Z43.1 Encounter for attention to gastrostomy (principal); I48.91 Unspecified atrial fibrillation; F03.90 Unspecified dementia, unspecified severity, without behavioral disturbance, psychotic disturbance, mood disturbance, and anxiety; I10 Essential (primary) hypertension; Z91.041 Radiographic dye allergy status
CPT/HCPCS: 74018; 99284; Q9966

== ENCOUNTER → 2021-08-06 | Outpatient (CLI) | payer MEDICARE, BC ==
--- NOTE | 2021-08-06 17:33 | RAD ---
XR CHEST 2V History: Reason: PNEUMONIA. / Spl. Instructions: / History: Comparison: June 03, 2021 Findings: Small to moderate right and small left pleural effusions with adjacent opacities, similar compared to prior. Enlarged cardiac size, unchanged. Tracheostomy tube, unchanged. No pneumothorax. Gastrostomy tube noted. Impression: 1. Unchanged bilateral pleural effusions with adjacent opacities, may represent atelectasis or pneum onia. Electronically signed by: James Ambrosio DO (08/06/2021 5:31 PM) [id number]
== END ==
LOC: RAD 14:45
PROVIDERS: ATTEND Internal Medicine Pulmonary Disease
DX: J90 Pleural effusion, not elsewhere classified (principal); I51.7 Cardiomegaly
CPT/HCPCS: 71046

== ENCOUNTER 2021-10-22 15:17 | Inpatient (IN) | payer MEDICARE, BC ==
[2021-10-22] VITALS (12 sets, daily range): BP systolic 81–128; BP diastolic 33–54
[~2021-10-22] VITALS: Ht 160 cm; Wt 70.4 kg
[~2021-10-22 15:17] MED LIST changes: -FLUC100T4 PO; +FLUC100T6 PO
[2021-10-22] MEDS ORDERED: IV NORMAL SALINE 1000ML BAG 1,000 ML IV ONE (15:30)
--- NOTE | 2021-10-22 15:42 | PHYS DOC ---
Past Medical History Past Medical History: A-Fib, Dementia, Depression, Hypertension, Seizure, Other Additional Past Medical Histor: MS, COVID, Empyema, quadriplegia, MS Past Surgical History: Other Additional Past Surgical Histo: feeding tube,baclofen pump,flap surgeries,tracheostomy,COLOSTOMY, 1 kidney, Smoking Status: Never Smoker Alcohol Use: None Drug Use: None Adult General HPI HPI Patient is a 71 year old female with advanced MS presenting to emergency department for reportedly not having a bowel movement for 3 weeks. Patient has a tracheostomy tube and is on the ventilator and she cannot communicate at all she appears to be completely paralyzed and only moves her eyes back and forth when I asked her questions. Patient's history provided by EMS and they said that reportedly 3 weeks ago her feeding tube was displaced and then packed by did not know what they meant by that as I looked in her abdomen it appears that there appears to be a tube going into her stomach at this time. I am unsure if is a G-tube or J-tube. She also has an ostomy and it does not appear that there is any output in it right now. Patient is unresponsive and is cared for by the who is not here at this time. Review of Systems Review of Systems Unable to obtain due to medical condition All other systems were reviewed and found to be within normal limits, except as documented in this note. Current Medications Current Medications Current Medications Medications (Trade) Dose Ordered Sig/Lidia Start Time Stop Time Status Last Admin Dose Admin Info (CONTRAST GIVEN -- Rx MONITORING) 1 each PRN DAILY PRN 10/22/21 17:15 10/24/21 17:14 Iohexol (Omnipaque 300 Mg/ml) 75 ml 1X ONCE 10/22/21 17:15 10/22/21 17:16 DC 10/22/21 17:19 75 ML Sodium Chloride 1,000 ml @ 1,000 mls/hr 1X ONCE 10/22/21 15:30 10/22/21 16:29 DC Allergies Allergies Allergies Coded Allergies Type Severity Reaction Last Updated Verified I S O L A T I O N *CONTACT* Allergy Unknown 10/22/21 Yes No Known Medication Allergies Allergy Unknown 10/22/21 Yes Physical Exam Physical Exam Constitutional: Chronically ill-appearing female in no acute distress HENT: Normocephalic, atraumatic, bilateral external ears normal, oropharynx moist, no oral exudates, nose normal. [] Eyes: PERRLA Neck: Tracheostomy in place Cardiovascular:Heart rate regular rhythm, no murmur [] Lungs & Thorax: Bilateral breath sounds clear to auscultation [] Abdomen: Bowel sounds decreased in her abdomen is distended but no noted tenderness Skin: Warm, dry, no erythema, no rash. [] Back: No tenderness, no CVA tenderness. [] Extremities: No edema noted Neurologic: Unresponsive Current Patient Data Vital Signs Vital Signs Date Time Temp Pulse Resp B/P (MAP) Pulse Ox O2 Delivery O2 Flow Rate FiO2 10/22/21 17:07 100 Ventilator 10/22/21 15:26 97.7 67 24 127/77 (94) 97.7 Lab Values Laboratory Tests Test 10/22/21 16:20 White Blood Count 5.5 x10^3/uL (4.0-11.0) Red Blood Count 3.00 x10^6/uL (3.50-5.40) L Hemoglobin 8.4 g/dL (12.0-15.5) L Hematocrit 25.9 % (36.0-47.0) L Mean Corpuscular Volume 86 fL (79-100) Mean Corpuscular Hemoglobin 28 pg (25-35) Mean Corpuscular Hemoglobin Concent 33 g/dL (31-37) Red Cell Distribution Width 18.7 % (11.5-14.5) H Platelet Count 512 x10^3/uL (140-400) H Neutrophils (%) (Auto) 77 % (31-73) H Lymphocytes (%) (Auto) 13 % (24-48) L Monocytes (%) (Auto) 6 % (0-9) Eosinophils (%) (Auto) 3 % (0-3) Basophils (%) (Auto) 1 % (0-3) Neutrophils # (Auto) 4.2 x10^3/uL (1.8-7.7) Lymphocytes # (Auto) 0.7 x10^3/uL (1.0-4.8) L Monocytes # (Auto) 0.4 x10^3/uL (0.0-1.1) Eosinophils # (Auto) 0.2 x10^3/uL (0.0-0.7) Basophils # (Auto) 0.0 x10^3/uL (0.0-0.2) Prothrombin Time 18.8 SEC (11.7-14.0) H Prothrombin Time INR 1.6 (0.8-1.1) H Activated Partial Thromboplast Time 46 SEC (24-38) H Sodium Level 141 mmol/L (136-145) Potassium Level 4.0 mmol/L (3.5-5.1) Chloride Level 103 mmol/L (98-107) Carbon Dioxide Level 24 mmol/L (21-32) Anion Gap 14 (6-14) Blood Urea Nitrogen 42 mg/dL (7-20) H Creatinine 0.8 mg/dL (0.6-1.0) Estimated GFR (Cockcroft-Gault) 70.9 BUN/Creatinine Ratio 53 (6-20) H Glucose Level 144 mg/dL (70-99) H Calcium Level 10.6 mg/dL (8.5-10.1) H Total Bilirubin 0.3 mg/dL (0.2-1.0) Aspartate Amino Transferase (AST) 20 U/L (15-37) Alanine Aminotransferase (ALT) 21 U/L (14-59) Alkaline Phosphatase 94 U/L (46-116) Total Protein 9.0 g/dL (6.4-8.2) H Albumin 2.4 g/dL (3.4-5.0) L Albumin/Globulin Ratio 0.4 (1.0-1.7) L Lipase 155 U/L (73-393) Laboratory Tests 10/22/21 16:20 Laboratory Tests 10/22/21 16:20 EKG EKG [] Radiology/Procedures Radiology/Procedures [] Course & Med Decision Making Course & Med Decision Making Reportedly patient's GI doctor, Dr. Rust requested that she come to the emergency department at [facility]. I will check labs and imaging give IV fluids and reassess. I spoke to Dr. Perez and he said he is familiar with him and would recommend admission and that he would consult on her and have general surgery consult on her tomorrow as well. Patient admitted in stable condition. Dragon Disclaimer Dragon Disclaimer This electronic medical record was generated, in whole or in part, using a voice recognition dictation system. Departure Departure Impression: Primary Impression: Abdominal pain Disposition: ADMITTED INPATIENT Admitting Physician: [facility] (Santiago) Condition: STABLE Problem Qualifiers Primary Impression: Abdominal pain Abdominal location: generalized Qualified Codes: R10.84 - Generalized abdominal pain JENNIFER GOMES DO Oct 22, 2021 15:42
[2021-10-22 16:38] LABS: BASO % 1 % (0-3); EOS # 0.2 x10^3/uL (0.0-0.7); EOS % 3 % (0-3); HEMATOCRIT 25.9 % (36.0-47.0); HEMOGLOBIN 8.4 g/dL (12.0-15.5); LYMPH # 0.7 x10^3/uL (1.0-4.8); LYMPH % 13 % (24-48); MEAN CORPUSCULAR HEMOGLOBIN 28 pg (25-35); MEAN CORPUSCULAR HGB CONC 33 g/dL (31-37); MEAN CORPUSCULAR VOLUME 86 fL (79-100); MONO # 0.4 x10^3/uL (0.0-1.1); MONO % 6 % (0-9); NEUT # 4.2 x10^3/uL (1.8-7.7); NEUT % 77 % (31-73); PLATELET COUNT 512 x10^3/uL (140-400); RED CELL DISTRIBUTION WIDTH 18.7 % (11.5-14.5); WHITE BLOOD COUNT 5.5 x10^3/uL (4.0-11.0)
[2021-10-22 16:48] LABS: PROTHROMBIN TIME PATIENT 18.8 SEC (11.7-14.0)
[2021-10-22 16:56] LABS: CALCIUM 10.6 mg/dL (8.5-10.1); CREATININE 0.8 mg/dL (0.6-1.0); GFR 70.9
[2021-10-22 17:10] LABS: ALBUMIN 2.4 g/dL (3.4-5.0); ALBUMIN/GLOBULIN RATIO 0.4 (1.0-1.7); TOTAL BILIRUBIN 0.3 mg/dL (0.2-1.0)
[2021-10-22] MEDS ORDERED: IOHEXOL 300 MG/ML 100ML VIAL. IV ONE (17:15)
[2021-10-22] MEDS ORDERED: CONTRAST GIVEN. MC PRN (17:15)
--- NOTE | 2021-10-22 17:32 | RAD ---
Exam Date: 10/22/2021 5:[address] HEAD/BRAIN WO Indication: Reason: UNRESPONSIVE [phone] / Spl. Instructions: / History: . TECHNIQUE: Head CT was performed without intravenous contrast. One or more of the following dose re duction techniques were utilized: *Automated exposure control (AEC) *Adjustment of mA and/or kV according to patient size *Use of iterative reconstruction technique *CT scan done according to ALARA, or ALARA/IMAGE GENTLY COMPARISON: March 24, 2021 FINDINGS: The ventricles and sulci are prominent consistent with cerebral volume loss. Patchy ill-defined low attenuation areas in the subcortical and periventricular white matter bilaterally are consistent with microvascular disease. There is no evidence of acute intracranial hemorrhage, extra-axial collecti on, mass effect, midline shift, or acute territorial infarct. No lesion of the skull base or the calv arium is seen. The visualized paranasal sinuses, right mastoid air cells and orbits are normal in parag earance. There is opacification of the left mastoid air cells, nonspecific. IMPRESSION: No evidence for acute intracranial abnormality. Volume loss and microvascular disease. Opacification of the left mastoid air cells is nonspecific but could represent mastoiditis. Correlat e clinically. Electronically signed by: Sandro Boyd MD (10/22/2021 5:30 PM) [facility]
--- NOTE | 2021-10-22 17:40 | RAD ---
Exam: CT abdomen and pelvis with contrast INDICATION: Abdominal pain, nausea vomiting TECHNIQUE: Sequential axial images through the abdomen and pelvis obtained following the administrati on of 76 mL of Isovue-370 IV contrast. Sagittal and coronal reformatted images were reconstructed fro m the axial data and reviewed. Exposure: One or more of the following in the visualized dose reduction techniques were utilized for this examination: 1. Automated exposure control 2. Adjustment of the MA and/or KV according to patient size 3. Use of iterative of reconstructive technique Comparisons: 09/06/2021 FINDINGS: Heart size is normal. No pericardial effusion. Consolidative changes noted at the lower lobes bilater ally which are similar to the prior study in August. There is a small right pleural effusion, stabl e. Redemonstration of several subcentimeter hypoattenuating cystic lesions in the liver unchanged from p rior. Spleen, pancreas and adrenals are unremarkable. Numerous gallstones in the gallbladder including a stone at the gallbladder neck. Right kidney is absent. No perinephric inflammation or hydronephrosis. Several hypoattenuating cystic lesions of the kidneys some which are too small characterize. There is a hyper attenuating cyst with in the anterior mid left kidney which measures approximately 1.4 cm in diameter and is incompletely c haracterized. Numerous nonobstructing left renal calculi are seen. No ureteral calculi are identified . Bladder is decompressed not well evaluated. Smalls balloon noted in the bladder. Uterus is not enlarge d. No abnormal adnexal mass. There is a loop colostomy in the left lower quadrant. Postoperative changes of partial colectomy with ileocolic anastomosis in the midabdomen. Small bowel is unremarkable. No free intra-abdominal air or fluid. No obstruction. Percutaneous G-tube with balloon in the stomach. Abdominal aorta has a normal course and caliber. Abdominal vasculature is patent. No enlarged intra-abdominal lymph nodes are identified. No suspicious osseous lesions or acute fractures. IMPRESSION: 1. Mildly distended gallbladder with numerous gallstones including a gallstone at the neck of the ga llbladder. Correlate with symptomatology to determine the need for further evaluation with ultrasound . 2. No obstruction 3. Other stable findings when compared to the recent prior study as detailed above. Electronically signed by: Jennifer Diggs MD (10/22/2021 5:38 PM) [facility]
[2021-10-22 17:56] LABS: BACTERIA,URINE MODERATE /HPF (0-FEW); RBC,URINE 20-40 /HPF (0-2); WBC,URINE 20-40 /HPF (0-4)
[2021-10-22] MEDS ORDERED: ONDANSETRON PF 4 MG/2 ML VIAL. IVP PRN (18:00)
--- NOTE | 2021-10-22 20:00 | NUR ---
Admission Note: Patient admitted from ED by Dr. Santiago due to abdominal pain. Patient has Multiple Sclerosis and baseline is non-verbal and immobile. Patient has size 7 Shiley trach with vent. Vital signs are stable at this time. Patient was admitted with two open wounds on right and left buttocks. Wound consult has been placed. Patient has 20g right upper arm from ED and 22g place in right hand in ICU. Patient has pitting edema on all extremities. Patient has PEG tube in place and ostomy (bag changed on admission). Med list update and placed in chart from . Will continue to monitor.
[2021-10-22] MEDS ORDERED: PARO10TA3 PEG (20:47)
[2021-10-22] MEDS ORDERED: NITR100C6 PO (20:47)
[2021-10-22] MEDS ORDERED: LOSA50TA15 PO (20:47)
[2021-10-22] MEDS ORDERED: DIAZ2TAB3 PO (20:47)
[2021-10-22] MEDS ORDERED: ATOR80TA72 PO (20:47)
[2021-10-22] MEDS ORDERED: MODA200T2 PO (20:47)
[2021-10-22] MEDS ORDERED: APIX5TAB (20:47)
[2021-10-22] MEDS ORDERED: AZIT250T6 PEG (20:47)
[2021-10-22] MEDS ORDERED: LEVE100S8 PEG (20:47)
[2021-10-22] MEDS ORDERED: METO-313 PEG (20:51)
[2021-10-22 22:53] LABS: BASE EXCESS ABG 0 mmol/L (-3-3); HCO3 ABG 22 mmol/L (21-28); PCO2 ABG 24 mmHg (35-46); PO2 ABG 143 mmHg (65-108); SAT O2 ABG 99 % (92-99)
[2021-10-22 22:56] LABS: FIO2 ABG 40
[2021-10-23] VITALS (25 sets, daily range): BP systolic 85–143; BP diastolic 39–61
[2021-10-23] MEDS ORDERED: ELECTROLYTE (NON-ICU) PROTOCOL. MC PRN
[2021-10-23] MEDS ORDERED: MAGNESIUM HYDROXIDE 2,400 MG/30 ML ORAL.SUSP. PO PRN
[2021-10-23] MEDS ORDERED: CALCIUM CARBONATE 500 MG TAB.CHEW PO PRN
[2021-10-23] MEDS ORDERED: ELECTROLYTE (ICU) PROTOCOL. MC PRN
[2021-10-23] MEDS ORDERED: PROCHLORPERAZINE 10 MG/2 ML VIAL. IVP PRN
[2021-10-23] MEDS ORDERED: ONDANSETRON PF 4 MG/2 ML VIAL. IVP PRN
[2021-10-23] MEDS ORDERED: ACETAMINOPHEN 325 MG TABLET. PO PRN
[2021-10-23] MEDS ORDERED: LACTULOSE 20 GM/30 ML SOLUTION. PO PRN
[2021-10-23] MEDS ORDERED: LACTULOSE 20 GM/30 ML SOLUTION. PEG PRN (00:04)
[2021-10-23] MEDS ORDERED: CALCIUM CARBONATE 500 MG TAB.CHEW PEG PRN (00:04)
[2021-10-23] MEDS ORDERED: MAGNESIUM HYDROXIDE 2,400 MG/30 ML ORAL.SUSP. PEG PRN (00:05)
[2021-10-23] MEDS ORDERED: ACETAMINOPHEN 650 MG/20.3 ML SOLUTION. PEG PRN (00:15)
[2021-10-23 05:03] LABS: BASO % 1 % (0-3); EOS # 0.1 x10^3/uL (0.0-0.7); EOS % 3 % (0-3); HEMOGLOBIN 7.9 g/dL (12.0-15.5); LYMPH # 0.5 x10^3/uL (1.0-4.8); LYMPH % 12 % (24-48); MEAN CORPUSCULAR HEMOGLOBIN 27 pg (25-35); MEAN CORPUSCULAR HGB CONC 32 g/dL (31-37); MEAN CORPUSCULAR VOLUME 86 fL (79-100); MONO # 0.4 x10^3/uL (0.0-1.1); MONO % 8 % (0-9); NEUT # 3.6 x10^3/uL (1.8-7.7); NEUT % 77 % (31-73); PLATELET COUNT 439 x10^3/uL (140-400); RED CELL DISTRIBUTION WIDTH 18.6 % (11.5-14.5); WHITE BLOOD COUNT 4.6 x10^3/uL (4.0-11.0)
[2021-10-23 05:20] LABS: CALCIUM 9.9 mg/dL (8.5-10.1); CREATININE 0.6 mg/dL (0.6-1.0); GFR 98.8; POTASSIUM 3.4 mmol/L (3.5-5.1)
--- NOTE | 2021-10-23 05:34 | PDOC2 ---
CONSULT Date of Consult Date of Consult DATE: 10/23/21 TIME: 05:31 Reason for Consult Reason for Consult: abd pain, constipation Referring Physician Referring Physician: Dr. Lopez Identification/Chief Complaint Chief Complaint none Source Source: Chart review History of Present Illness Reason for Visit: 71 yo F with no stool for several days. Pt in ICU and minimally responsive. Past Medical History Cardiovascular: AFIB, HTN, Hyperlipidemia Pulmonary: Pneumonia, Other CENTRAL NERVOUS SYSTEM: Seizure, Other GI: Other Psych: Depression Musculoskeletal: Other Renal/: UTI, Urinary Incontinence Past Surgical History Past Surgical History: Other Family History Family History: Hypertension Social History ALCOHOL: none Drugs: None Lives: with Family Domestic Violence: Neg Current Problem List Problem List Problems Medical Problems: (1) Abdominal pain Status: Acute Current Medications Current Medications Current Medications Sodium Chloride 1,000 ml @ 1,000 mls/hr 1X ONCE IV Last administered on 10/22/21at 18:09; Start 10/22/21 at 15:30; Stop 10/22/21 at 16:29; Status DC Iohexol (Omnipaque 300 Mg/ml) 75 ml 1X ONCE IV Last administered on 10/22/21at 17:19; Start 10/22/21 at 17:15; Stop 10/22/21 at 17:16; Status DC Info (CONTRAST GIVEN -- Rx MONITORING) 1 each PRN DAILY PRN MC SEE COMMENTS; Start 10/22/21 at 17:15; Stop 10/24/21 at 17:14 Ondansetron HCl (Zofran) 4 mg PRN Q8HRS PRN IVP NAUSEA/VOMITING; Start 10/22/21 at 18:00; Stop 10/23/21 at 17:59 Ondansetron HCl (Zofran) 4 mg PRN Q6HRS PRN IVP NAUSEA/VOMITING 1ST CHOICE; Start 10/23/21 at 00:00 Prochlorperazine Edisylate (Compazine) 10 mg PRN Q6HRS PRN IVP NAUSEA/VOMITING 2ND CHOICE; Start 10/23/21 at 00:00 Calcium Carbonate/ Glycine (Tums) 500 mg PRN Q3HRS PRN PO UPSET STOMACH; Start 10/23/21 at 00:00; Stop 10/23/21 at 00:04; Status DC Info (Non-Icu Electrolyte Protocol) 1 ea PRN DAILY PRN MC SEE COMMENTS; Start 10/23/21 at 00:00; Stop 10/22/21 at 23:55; Status DC Acetaminophen (Tylenol) 650 mg PRN Q6HRS PRN PO Headaches, Temp > 101.5F; Start 10/23/21 at 00:00; Stop 10/23/21 at 00:06; Status DC Senna/Docusate Sodium (Senna Plus) 1 tab BID PO ; Start 10/23/21 at 09:00 Magnesium Hydroxide (Milk Of Magnesia) 2,400 mg PRN Q12HR PRN PO CONSTIPATION; Start 10/23/21 at 00:00; Stop 10/23/21 at 00:05; Status DC Lactulose (Lactulose) 20 gm PRN Q12HR PRN PO CONSTIPATION; Start 10/23/21 at 0 0:00; Stop 10/23/21 at 00:04; Status DC Heparin Sodium (Porcine) (Heparin Sodium) 5,000 unit Q8HRS SQ ; Start 10/23/21 at 06:00; Stop 10/23/21 at 00:00; Status DC Apixaban (Eliquis) 5 mg BID FT ; Start 10/23/21 at 09:00 Baclofen (Lioresal) 10 mg TID PEG ; Start 10/23/21 at 09:00 Diazepam (Valium) 2 mg TID PEG ; Start 10/23/21 at 09:00 Famotidine (Pepcid) 20 mg DAILYWSUP PEG ; Start 10/23/21 at 17:00 Losartan Potassium (Cozaar) 25 mg DAILY PEG ; Start 10/23/21 at 09:00 Spironolactone (Aldactone) 25 mg BID PEG ; Start 10/23/21 at 09:00 Atorvastatin Calcium (Lipitor) 80 mg QHS PEG ; Start 10/23/21 at 21:00 Non-Formulary Medication (Modafinil ) 1 tab DAILY PO ; Start 10/23/21 at 09:00; Status UNV Multivitamins/ Minerals Therapeutic (Centrum Multivit-Mineral Liq) 5 ml DAILY PEG ; Start 10/23/21 at 09:00 Paroxetine HCl (Paxil) 10 mg DAILY PEG ; Start 10/23/21 at 09:00 Albuterol/ Ipratropium (Duoneb) 3 ml RTQID NEB ; Start 10/23/21 at 08:00 Levetiracetam (Keppra Oral Soln) 750 mg BID PEG ; Start 10/23/21 at 09:00 Info (Icu Electrolyte Protocol) 1 ea CONT PRN PRN MC SEE COMMENTS; Start 10/23/21 at 00:00 Calcium Carbonate/ Glycine (Tums) 500 mg PRN Q3HRS PRN PEG UPSET STOMACH; Start 10/23/21 at 00:04 Lactulose (Lactulose) 20 gm PRN Q12HR PRN PEG CONSTIPATION 2ND CHOICE; Start 10/23/21 at 00:04 Magnesium Hydroxide (Milk Of Magnesia) 2,400 mg PRN Q12HR PRN PEG CONSTIPATION 1ST CHOICE; Start 10/23/21 at 00:05 Acetaminophen (Tylenol) 650 mg PRN Q6HRS PRN PEG MILD PAIN / TEMP > 100.3'F; Start 10/23/21 at 00:15 Albuterol/ Ipratropium (Duoneb) 3 ml RTQID NEB ; Start 10/23/21 at 08:00; Stop 10/23/21 at 00:19; Status DC Active Scripts Active Keflex (Cephalexin) 500 Mg Capsule 1 Cap PO TID 7 Days Duoneb 0.5-3(2.5) Mg/3 Ml (Albuterol/Ipratropium) 3 Ml Ampul.neb 3 Ml NEB RTQID 30 Days Amox Tr-K Clv 400-57/5 Susp (Amoxicillin/Potassium Clav) 400 Mg/5 Ml Susp.recon 10 Ml PEG Q12HR 7 Days Reported Lopressor (Metoprolol Tartrate) 100 Mg Tablet 25 Mg PEG TID Azithromycin Tablet (Azithromycin) 250 Mg Tablet 1 Tab PEG HS Keppra (Levetiracetam) 100 Mg/1 Ml Solution 7.5 Ml PEG BID Atorvastatin Calcium 80 Mg Tablet 1 Tab PO DAILY Modafinil 200 Mg Tablet 1 Tab PO DAILY Eliquis (Apixaban) 5 Mg Tablet 1 Tab BID Nitrofurantoin Orange-Mcr 100 Mg (Nitrofurantoin Monohyd/M-Cryst) 100 Mg Capsule 1 Cap PO BID Cozaar (Losartan Potassium) 25 Mg Tablet 25 Mg PO DAILY Spironolactone 25 Mg Tablet 25 Mg PEG BID [baclofen pump] 0 MC Probiotic (Lactobacillus Combo No.10) 1 Each Capsule 1 Cap PEG DAILY Multivitamins With Minerals (Multivitamin With Minerals) 1 Each Tablet 0.5 Cap PO PEG Pepcid (Famotidine) 20 Mg Tablet 20 Mg PEG DAILYWSUP Vitamin C (Ascorbic Acid) 500 Mg Capsule.er 500 Mg PEG DAILY Atorvastatin Calcium 80 Mg Tablet 80 Mg PEG HS Probiotic Plus & Cranberry Cap (Cran/C/B.coag/Fos/L.acid/L.rha) 1 Each Capsule 1 Each PEG DAILY Keppra (Levetiracetam) 500 Mg Tablet 750 Mg PEG BID Xopenex (Levalbuterol Hcl) 0.63 Mg/3 Ml Vial.neb 1 Vial NEB TID Valium (Diazepam) 2 Mg Tablet 2 Mg PEG TID Spiriva (Tiotropium [place]) 18 Mcg Cap.w.dev 18 Mcg IH DAILY Paxil (Paroxetine Hcl) 10 Mg/5 Ml Oral.susp 10 Mg PEG DAILY Baclofen 10 Mg Tablet 10 Mg PEG TID Allergies Allergies: Coded Allergies: I S O L A T I O N *CONTACT* (Verified Allergy, Unknown, 10/22/21) (R)PSA No Known Medication Allergies (Verified Allergy, Unknown, 10/22/21) ROS Review of System unobtainable Physical Exam General: No acute distress HEENT: Atraumatic, Other (trach in place) Lungs: Normal air movement Abdomen: Soft, No tenderness, Other (ostomy in place with some stool) Vitals VITALS Vital Signs Date Time Temp Pulse Resp B/P (MAP) Pulse Ox O2 Delivery O2 Flow Rate FiO2 10/23/21 05:00 66 18 123/56 (78) 100 Ventilator 10/23/21 04:00 98.0 98.0 Labs Labs Laboratory Tests Test 10/22/21 16:20 10/22/21 17:30 10/22/21 22:32 10/23/21 04:40 White Blood Count 5.5 x10^3/uL (4.0-11.0) 4.6 x10^3/uL (4.0-11.0) Red Blood Count 3.00 x10^6/uL (3.50-5.40) 2.90 x10^6/uL (3.50-5.40) Hemoglobin 8.4 g/dL (12.0-15.5) 7.9 g/dL (12.0-15.5) Hematocrit 25.9 % (36.0-47.0) 25.0 % (36.0-47.0) Mean Corpuscular Volume 86 fL (79-100) 86 fL (79-100) Mean Corpuscular Hemoglobin 28 pg (25-35) 27 pg (25-35) Mean Corpuscular Hemoglobin Concent 33 g/dL (31-37) 32 g/dL (31-37) Red Cell Distribution Width 18.7 % (11.5-14.5) 18.6 % (11.5-14.5) Platelet Count 512 x10^3/uL (140-400) 439 x10^3/uL (140-400) Neutrophils (%) (Auto) 77 % (31-73) 77 % (31-73) Lymphocytes (%) (Auto) 13 % (24-48) 12 % (24-48) Monocytes (%) (Auto) 6 % (0-9) 8 % (0-9) Eosinophils (%) (Auto) 3 % (0-3) 3 % (0-3) Basophils (%) (Auto) 1 % (0-3) 1 % (0-3) Neutrophils # (Auto) 4.2 x10^3/uL (1.8-7.7) 3.6 x10^3/uL (1.8-7.7) Lymphocytes # (Auto) 0.7 x10^3/uL (1.0-4.8) 0.5 x10^3/uL (1.0-4.8) Monocytes # (Auto) 0.4 x10^3/uL (0.0-1.1) 0.4 x10^3/uL (0.0-1.1) Eosinophils # (Auto) 0.2 x10^3/uL (0.0-0.7) 0.1 x10^3/uL (0.0-0.7) Basophils # (Auto) 0.0 x10^3/uL (0.0-0.2) 0.0 x10^3/uL (0.0-0.2) Prothrombin Time 18.8 SEC (11.7-14.0) Prothromb Time International Ratio 1.6 (0.8-1.1) Activated Partial Thromboplast Time 46 SEC (24-38) Sodium Level 141 mmol/L (136-145) 140 mmol/L (136-145) Potassium Level 4.0 mmol/L (3.5-5.1) 3.4 mmol/L (3.5-5.1) Chloride Level 103 mmol/L (98-107) 106 mmol/L (98-107) Carbon Dioxide Level 24 mmol/L (21-32) 24 mmol/L (21-32) Anion Gap 14 (6-14) 10 (6-14) Blood Urea Nitrogen 42 mg/dL (7-20) 35 mg/dL (7-20) Creatinine 0.8 mg/dL (0.6-1.0) 0.6 mg/dL (0.6-1.0) Estimated GFR (Cockcroft-Gault) 70.9 98.8 BUN/Creatinine Ratio 53 (6-20) Glucose Level 144 mg/dL (70-99) 132 mg/dL (70-99) Calcium Level 10.6 mg/dL (8.5-10.1) 9.9 mg/dL (8.5-10.1) Total Bilirubin 0.3 mg/dL (0.2-1.0) Aspartate Amino Transf (AST/SGOT) 20 U/L (15-37) Alanine Aminotransferase (ALT/SGPT) 21 U/L (14-59) Alkaline Phosphatase 94 U/L (46-116) Total Protein 9.0 g/dL (6.4-8.2) Albumin 2.4 g/dL (3.4-5.0) Albumin/Globulin Ratio 0.4 (1.0-1.7) Lipase 155 U/L (73-393) Urine Collection Type Unknown Urine Color (Auto) Yellow Urine Turbidity Hazy Urine pH (Auto) 6.5 (<5.0-8.0) Urine Specific [place] 1.015 (1.000-1.030) Urine Protein (Auto) Negative mg/dL (Negative) Urine Glucose (Auto)(UA) Negative mg/dL (Negative) Urine Ketones (Auto) Negative mg/dL (Negative) Urine Blood (Auto) Moderate (Negative) Urine Nitrite Positive (Negative) Urine Bilirubin (Auto) Negative (Negative) Urine Urobilinogen (Auto) Normal mg/dL (Normal) Urine Leukocyte Esterase (Auto) Large (Negative) Urine RBC 20-40 /HPF (0-2) Urine WBC 20-40 /HPF (0-4) Urine Squamous Epithelial Cells Mod /LPF Urine Bacteria Moderate /HPF (0-FEW) Urine Mucus Slight /LPF O2 Saturation 99 % (92-99) Arterial Blood pH 7.57 (7.35-7.45) Arterial Blood pCO2 at Patient Temp 24 mmHg (35-46) Arterial Blood pO2 at Patient Temp 143 mmHg (65-108) Arterial Blood HCO3 22 mmol/L (21-28) Arterial Blood Base Excess 0 mmol/L (-3-3) FiO2 40 Laboratory Tests Test 10/22/21 16:20 10/22/21 17:30 10/22/21 22:32 10/23/21 04:40 White Blood Count 5.5 x10^3/uL (4.0-11.0) 4.6 x10^3/uL (4.0-11.0) Red Blood Count 3.00 x10^6/uL (3.50-5.40) 2.90 x10^6/uL (3.50-5.40) Hemoglobin 8.4 g/dL (12.0-15.5) 7.9 g/dL (12.0-15.5) Hematocrit 25.9 % (36.0-47.0) 25.0 % (36.0-47.0) Mean Corpuscular Volume 86 fL (79-100) 86 fL (79-100) Mean Corpuscular Hemoglobin 28 pg (25-35) 27 pg (25-35) Mean Corpuscular Hemoglobin Concent 33 g/dL (31-37) 32 g/dL (31-37) Red Cell Distribution Width 18.7 % (11.5-14.5) 18.6 % (11.5-14.5) Platelet Count 512 x10^3/uL (140-400) 439 x10^3/uL (140-400) Neutrophils (%) (Auto) 77 % (31-73) 77 % (31-73) Lymphocytes (%) (Auto) 13 % (24-48) 12 % (24-48) Monocytes (%) (Auto) 6 % (0-9) 8 % (0-9) Eosinophils (%) (Auto) 3 % (0-3) 3 % (0-3) Basophils (%) (Auto) 1 % (0-3) 1 % (0-3) Neutrophils # (Auto) 4.2 x10^3/uL (1.8-7.7) 3.6 x10^3/uL (1.8-7.7) Lymphocytes # (Auto) 0.7 x10^3/uL (1.0-4.8) 0.5 x10^3/uL (1.0-4.8) Monocytes # (Auto) 0.4 x10^3/uL (0.0-1.1) 0.4 x10^3/uL (0.0-1.1) Eosinophils # (Auto) 0.2 x10^3/uL (0.0-0.7) 0.1 x10^3/uL (0.0-0.7) Basophils # (Auto) 0.0 x10^3/uL (0.0-0.2) 0.0 x10^3/uL (0.0-0.2) Prothrombin Time 18.8 SEC (11.7-14.0) Prothromb Time International Ratio 1.6 (0.8-1.1) Activated Partial Thromboplast Time 46 SEC (24-38) Sodium Level 141 mmol/L (136-145) 140 mmol/L (136-145) Potassium Level 4.0 mmol/L (3.5-5.1) 3.4 mmol/L (3.5-5.1) Chloride Level 103 mmol/L (98-107) 106 mmol/L (98-107) Carbon Dioxide Level 24 mmol/L (21-32) 24 mmol/L (21-32) Anion Gap 14 (6-14) 10 (6-14) Blood Urea Nitrogen 42 mg/dL (7-20) 35 mg/dL (7-20) Creatinine 0.8 mg/dL (0.6-1.0) 0.6 mg/dL (0.6-1.0) Estimated GFR (Cockcroft-Gault) 70.9 98.8 BUN/Creatinine Ratio 53 (6-20) Glucose Level 144 mg/dL (70-99) 132 mg/dL (70-99) Calcium Level 10.6 mg/dL (8.5-10.1) 9.9 mg/dL (8.5-10.1) Total Bilirubin 0.3 mg/dL (0.2-1.0) Aspartate Amino Transf (AST/SGOT) 20 U/L (15-37) Alanine Aminotransferase (ALT/SGPT) 21 U/L (14-59) Alkaline Phosphatase 94 U/L (46-116) Total Protein 9.0 g/dL (6.4-8.2) Albumin 2.4 g/dL (3.4-5.0) Albumin/Globulin Ratio 0.4 (1.0-1.7) Lipase 155 U/L (73-393) Urine Collection Type Unknown Urine Color (Auto) Yellow Urine Turbidity Hazy Urine pH (Auto) 6.5 (<5.0-8.0) Urine Specific [place] 1.015 (1.000-1.030) Urine Protein (Auto) Negative mg/dL (Negative) Urine Glucose (Auto)(UA) Negative mg/dL (Negative) Urine Ketones (Auto) Negative mg/dL (Negative) Urine Blood (Auto) Moderate (Negative) Urine Nitrite Positive (Negative) Urine Bilirubin (Auto) Negative (Negative) Urine Urobilinogen (Auto) Normal mg/dL (Normal) Urine Leukocyte Esterase (Auto) Large (Negative) Urine RBC 20-40 /HPF (0-2) Urine WBC 20-40 /HPF (0-4) Urine Squamous Epithelial Cells Mod /LPF Urine Bacteria Moderate /HPF (0-FEW) Urine Mucus Slight /LPF O2 Saturation 99 % (92-99) Arterial Blood pH 7.57 (7.35-7.45) Arterial Blood pCO2 at Patient Temp 24 mmHg (35-46) Arterial Blood pO2 at Patient Temp 143 mmHg (65-108) Arterial Blood HCO3 22 mmol/L (21-28) Arterial Blood Base Excess 0 mmol/L (-3-3) FiO2 [address] with gallstones, but no obstruction Assessment/Plan Assessment/Plan constipation favor bowel regimen no surgical plans. Thanks for consult! JUNIE KO MD Oct 23, 2021 05:34
[2021-10-23] MEDS ORDERED: HEPARIN for SUB-Q USE 5,000 UNIT/ML VIAL. SQ SCH (06:00)
--- NOTE | 2021-10-23 06:24 | NUR ---
IP: Pt continues to have a trach. 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 Pt to be in contact precautions.
[2021-10-23] MEDS: IPRATRPIUM/ALBUTEROL 0.5/2.5MG 3 ML NEBU. NEB SCH ×4 (07:27→20:03)
[2021-10-23] MEDS ORDERED: IPRATRPIUM/ALBUTEROL 0.5/2.5MG 3 ML NEBU. NEB SCH (08:00)
[2021-10-23 08:26] LABS: BASE EXCESS ABG -2 mmol/L (-3-3); HCO3 ABG 22 mmol/L (21-28); PCO2 ABG 34 mmHg (35-46); PO2 ABG 97 mmHg (65-108); SAT O2 ABG 97 % (92-99)
[2021-10-23 08:27] LABS: FIO2 ABG 30% AC 16 350 5
[2021-10-23] MEDS ORDERED: POTASSIUM BICARB 20 MEQ EFFERVESCENT TABLET. PEG ONE (08:30)
[2021-10-23] MEDS: SPIRONOLACTONE 25 MG TABLET PEG SCH ×3 (08:45→21:42)
[2021-10-23] MEDS: SENNOSIDES/DOCUSATE 8.6/50MG TABLET. PO SCH ×2 (08:45→21:07)
[2021-10-23] MEDS: APIXABAN 5 MG TABLET. FT SCH ×2 (08:45→21:07)
[2021-10-23] MEDS: PARoxetine 10 MG TABLET PEG SCH (08:45)
[2021-10-23] MEDS: BACLOFEN 10 MG TABLET. PEG SCH ×3 (08:45→21:08)
[2021-10-23] MEDS: MULTIVITAMINS,THERAPEUTIC 5 ML ORAL LIQUID. PEG SCH (08:45)
[2021-10-23] MEDS: levETIRAcetam 500 MG/5 ML ORAL SOLUTION. PEG SCH ×2 (08:45→21:07)
--- NOTE | 2021-10-23 08:48 | PDOC2 ---
GI CONSULT Date of Service: DATE: 10/23/21 TIME: 08:48 Reason For Consult: abd pain HPI: HPI: 71 y/o female in ICU, history from chart/staff. Cared for by who is not present. To ER w/ constipation concerns. H/o MS and dysphagia w/ trach and G tube, s/p right hemicolectomy (indication u nclear) w/ ostomy. G tube unable to be replaced w/ endoscopy in past do to stricture. Trach and G tube (20Fr) last replacement by surgery (here) in 05/2020, though notes indicate recent tube dislodgment? Per outside records: H/o GERD and constipation requiring irrigation for stooling. EGD and colonoscopy in 2008: hiatal hernia, random EGD biopsies benign, and colonoscopy biopsies w/ non-specific ileitis. ?fistula from tract to skin in past Cholelithiasis on imaging here - surgery has seen. No liver or pancreas history. PMH: PMH: MS, chronic resp failure, pneumonia, seizures, HLP, anxiety, HTN, A Fib, urinary incontinence trach, G tube, cecostomy tube, right hemicolectomy, baclofen pump FH: Family History: No pertinent hx Social History: Smoke: No ALCOHOL: none Drugs: None ROS: unable to obtain Vitals: Vitals: Vital Signs Date Time Temp Pulse Resp B/P (MAP) Pulse Ox O2 Delivery O2 Flow Rate FiO2 10/23/21 07:28 100 Ventilator 10/23/21 06:00 67 18 133/56 (81) 10/23/21 04:00 98.0 98.0 Labs: Labs: Laboratory Tests Test 10/22/21 16:20 10/22/21 17:30 10/22/21 22:32 10/23/21 04:40 White Blood Count 5.5 x10^3/uL (4.0-11.0) 4.6 x10^3/uL (4.0-11.0) Red Blood Count 3.00 x10^6/uL (3.50-5.40) 2.90 x10^6/uL (3.50-5.40) Hemoglobin 8.4 g/dL (12.0-15.5) 7.9 g/dL (12.0-15.5) Hematocrit 25.9 % (36.0-47.0) 25.0 % (36.0-47.0) Mean Corpuscular Volume 86 fL (79-100) 86 fL (79-100) Mean Corpuscular Hemoglobin 28 pg (25-35) 27 pg (25-35) Mean Corpuscular Hemoglobin Concent 33 g/dL (31-37) 32 g/dL (31-37) Red Cell Distribution Width 18.7 % (11.5-14.5) 18.6 % (11.5-14.5) Platelet Count 512 x10^3/uL (140-400) 439 x10^3/uL (140-400) Neutrophils (%) (Auto) 77 % (31-73) 77 % (31-73) Lymphocytes (%) (Auto) 13 % (24-48) 12 % (24-48) Monocytes (%) (Auto) 6 % (0-9) 8 % (0-9) Eosinophils (%) (Auto) 3 % (0-3) 3 % (0-3) Basophils (%) (Auto) 1 % (0-3) 1 % (0-3) Neutrophils # (Auto) 4.2 x10^3/uL (1.8-7.7) 3.6 x10^3/uL (1.8-7.7) Lymphocytes # (Auto) 0.7 x10^3/uL (1.0-4.8) 0.5 x10^3/uL (1.0-4.8) Monocytes # (Auto) 0.4 x10^3/uL (0.0-1.1) 0.4 x10^3/uL (0.0-1.1) Eosinophils # (Auto) 0.2 x10^3/uL (0.0-0.7) 0.1 x10^3/uL (0.0-0.7) Basophils # (Auto) 0.0 x10^3/uL (0.0-0.2) 0.0 x10^3/uL (0.0-0.2) Prothrombin Time 18.8 SEC (11.7-14.0) Prothromb Time International Ratio 1.6 (0.8-1.1) Activated Partial Thromboplast Time 46 SEC (24-38) Sodium Level 141 mmol/L (136-145) 140 mmol/L (136-145) Potassium Level 4.0 mmol/L (3.5-5.1) 3.4 mmol/L (3.5-5.1) Chloride Level 103 mmol/L (98-107) 106 mmol/L (98-107) Carbon Dioxide Level 24 mmol/L (21-32) 24 mmol/L (21-32) Anion Gap 14 (6-14) 10 (6-14) Blood Urea Nitrogen 42 mg/dL (7-20) 35 mg/dL (7-20) Creatinine 0.8 mg/dL (0.6-1.0) 0.6 mg/dL (0.6-1.0) Estimated GFR (Cockcroft-Gault) 70.9 98.8 BUN/Creatinine Ratio 53 (6-20) Glucose Level 144 mg/dL (70-99) 132 mg/dL (70-99) Calcium Level 10.6 mg/dL (8.5-10.1) 9.9 mg/dL (8.5-10.1) Total Bilirubin 0.3 mg/dL (0.2-1.0) Aspartate Amino Transf (AST/SGOT) 20 U/L (15-37) Alanine Aminotransferase (ALT/SGPT) 21 U/L (14-59) Alkaline Phosphatase 94 U/L (46-116) Total Protein 9.0 g/dL (6.4-8.2) Albumin 2.4 g/dL (3.4-5.0) Albumin/Globulin Ratio 0.4 (1.0-1.7) Lipase 155 U/L (73-393) Urine Collection Type Unknown Urine Color (Auto) Yellow Urine Turbidity Hazy Urine pH (Auto) 6.5 (<5.0-8.0) Urine Specific [place] 1.015 (1.000-1.030) Urine Protein (Auto) Negative mg/dL (Negative) Urine Glucose (Auto)(UA) Negative mg/dL (Negative) Urine Ketones (Auto) Negative mg/dL (Negative) Urine Blood (Auto) Moderate (Negative) Urine Nitrite Positive (Negative) Urine Bilirubin (Auto) Negative (Negative) Urine Urobilinogen (Auto) Normal mg/dL (Normal) Urine Leukocyte Esterase (Auto) Large (Negative) Urine RBC 20-40 /HPF (0-2) Urine WBC 20-40 /HPF (0-4) Urine Squamous Epithelial Cells Mod /LPF Urine Bacteria Moderate /HPF (0-FEW) Urine Mucus Slight /LPF O2 Saturation 99 % (92-99) Arterial Blood pH 7.57 (7.35-7.45) Arterial Blood pCO2 at Patient Temp 24 mmHg (35-46) Arterial Blood pO2 at Patient Temp 143 mmHg (65-108) Arterial Blood HCO3 22 mmol/L (21-28) Arterial Blood Base Excess 0 mmol/L (-3-3) FiO2 40 Lactic Acid Level 1.8 mmol/L (0.4-2.0) DP-Ueg-K-Type Natriuretic Peptide 208 pg/mL (0-124) Test 10/23/21 08:20 O2 Saturation 97 % (92-99) Arterial Blood pH 7.44 (7.35-7.45) Arterial Blood pCO2 at Patient Temp 34 mmHg (35-46) Arterial Blood pO2 at Patient Temp 97 mmHg (65-108) Arterial Blood HCO3 22 mmol/L (21-28) Arterial Blood Base Excess -2 mmol/L (-3-3) FiO2 30% ac 16 350 5 Allergies: Coded Allergies: I S O L A T I O N *CONTACT* (Verified Allergy, Unknown, 10/22/21) (R)PSA No Known Medication Allergies (Verified Allergy, Unknown, 10/22/21) Medications: Current Medications Medications (Trade) Dose Ordered Sig/Lidia Route PRN Reason Start Time Stop Time Status Last Admin Dose Admin Sodium Chloride 1,000 ml @ 1,000 mls/hr 1X ONCE IV 10/22/21 15:30 10/22/21 16:29 DC 10/22/21 18:09 Iohexol (Omnipaque 300 Mg/ml) 75 ml 1X ONCE IV 10/22/21 17:15 10/22/21 17:16 DC 10/22/21 17:19 Senna/Docusate Sodium (Senna Plus) 1 tab BID PO 10/23/21 09:00 10/23/21 08:45 Apixaban (Eliquis) 5 mg BID FT 10/23/21 09:00 10/23/21 08:45 Baclofen (Lioresal) 10 mg TID PEG 10/23/21 09:00 10/23/21 08:45 Spironolactone (Aldactone) 25 mg BID PEG 10/23/21 09:00 10/23/21 08:45 Multivitamins/ Minerals Therapeutic (Centrum Multivit-Mineral Liq) 5 ml DAILY PEG 10/23/21 09:00 10/23/21 08:45 Paroxetine HCl (Paxil) 10 mg DAILY PEG 10/23/21 09:00 10/23/21 08:45 Albuterol/ Ipratropium (Duoneb) 3 ml RTQID NEB 10/23/21 08:00 10/23/21 07:27 Levetiracetam (Keppra Oral Soln) 750 mg BID PEG 10/23/21 09:00 10/23/21 08:45 Potassium Bicarbonate (Potassium Effervescent Tablet) 40 meq 1X ONCE PEG 10/23/21 08:30 10/23/21 08:31 DC 10/23/21 08:42 Imaging: Imaging: CT A/P FINDINGS: Heart size is normal. No pericardial effusion. Consolidative changes noted at the lower lobes bilaterally which are similar to the prior study in August. There is a small right pleural effusion, stable. Redemonstration of several subcentimeter hypoattenuating cystic lesions in the liver unchanged from prior. Spleen, pancreas and adrenals are unremarkable. Numerous gallstones in the gallbladder including a stone at the gallbladder neck. Right kidney is absent. No perinephric inflammation or hydronephrosis. Several hypoattenuating cystic lesions of the kidneys some which are too small ch aracterize. There is a hyper attenuating cyst within the anterior mid left kidney which measures approximately 1.4 cm in diameter and is incompletely characterized. Numerous nonobstructing left renal calculi are seen. No ureteral calculi are identified. Bladder is decompressed not well evaluated. Smalls balloon noted in the bladder. Uterus is not enlarged. No abnormal adnexal mass. There is a loop colostomy in the left lower quadrant. Postoperative changes of partial colectomy with ileocolic anastomosis in the midabdomen. Small bowel is unremarkable. No free intra-abdominal air or fluid. No obstruction. Percutaneous G-tube with balloon in the stomach. Abdominal aorta has a normal course and caliber. Abdominal vasculature is patent. No enlarged intra-abdominal lymph nodes are identified. No suspicious osseous lesions or acute fractures. IMPRESSION: 1. Mildly distended gallbladder with numerous gallstones including a gallstone at the neck of the gallbladder. Correlate with symptomatology to determine the need for further evaluation with ultrasound. 2. No obstruction 3. Other stable findings when compared to the recent prior study as detailed above. Head CT IMPRESSION: No evidence for acute intracranial abnormality. Volume loss and microvascular disease. Opacification of the left mastoid air cells is nonspecific but could represent mastoiditis. Correlate clinically. PE: GEN: chronically ill HEENT: Atraumatic, PERRL LUNGS: trach/vent HEART: RRR ABD: baclofen pump RLQ, 18Fr G tube LUQ, left-sided ostomy w/ small amount of soft light brown stool EXTREMITY: No edema SKIN: No rashes, no jaundice NEURO/PSYCH: opens eyes A/P: A/P: ?constipation MS, chronic resp failure w/ trach and G tube Chronic anemia, ?UTI GERD CRC screen - can document colonoscopy in 2008 S/p right hemicolectomy w/ ostomy Cholelithiasis Anti-coagulated w/ Eliquis -- Seen w/ Dr. Malcolm - try enemas, Relistor. Seems ok for G tube feeds per GI. MAYI MCKEON Oct 23, 2021 08:48
[2021-10-23] MEDS: LOSARTAN POTASSIUM 25 MG TABLET. PEG SCH (09:00)
[2021-10-23] MEDS: MODAFINIL PO SCH (09:00)
[2021-10-23] MEDS: diazePAM 2 MG TABLET PEG SCH ×3 (09:18→21:06)
[2021-10-23] MEDS ORDERED: METHYLNALTREXONE 12 MG/0.6 ML VIAL. SQ ONE (11:00)
--- NOTE | 2021-10-23 13:58 | HP ---
DATE OF SERVICE: 10/23/2021 ADMIT DATE: 10/22/2021 CHIEF COMPLAINT: Constipation. 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 She is well known to our service. We have admitted her numerous times over the years. Basically this time, she presents with intractable constipation. She has not had a bowel movement for a couple of weeks. We have consulted GI and General Surgery. There are no surgical plans, but GI would like to try enemas and Relistor. PAST MEDICAL HISTORY: Advanced multiple sclerosis, tracheostomy, respiratory failure, previous pneumonia, seizures, hyperlipidemia, anxiety, hypertension, AFib, urinary incontinence, tracheostomy, G-tube, cecostomy tube, right hemicolectomy, baclofen pump. ALLERGIES: None. FAMILY HISTORY: Diabetes. SOCIAL HISTORY: She is . She does not drink, smoke or take drugs. MEDICATIONS: Reviewed. Please refer to the [facility]. REVIEW OF SYSTEMS: Unable to obtain. She is sedated. PHYSICAL EXAMINATION: VITALS: Within normal limits and are stable. GENERAL: She is resting with no apparent distress and seems sedated this morning. HEENT: She has a trach in place. EYES: Extraocular muscles are intact, pupils are equally round and reactive to light and accommodation. MUSCULOSKELETAL: Well developed, well nourished, good range of motion. ENDOCRINE: No thyromegaly was palpated. LYMPHATICS: No cervical chain or axillary nodes were noted. HEMATOPOIETIC: No bruising. NECK: Supple, no JVD, no thyromegaly was noted. LUNGS: Clear to auscultation in all lung esparza without rhonchi or wheezing. HEART: RRR, S1, S2 present. Peripheral pulses intact, no obvious murmurs were noted. ABDOMEN: She has a PEG tube in place. EXTREMITIES: Without any cyanosis, clubbing, or edema. Pedal pulses intact, Homans sign is negative. NEUROLOGIC: She is resting with no apparent distress and seems sedated this morning. PSYCHIATRIC: She is resting with no apparent distress and seems sedated this morning. SKIN: No ulcerations or rashes, good skin turgor, no jaundice. VASCULAR: Good capillary refill, neurovascular bundle appears to be intact. LABORATORY DATA: White count is 5.5, hemoglobin 8.4, platelets 512. ASSESSMENT AND PLAN: Constipation. We have consulted General Surgery. No surgical plans. We have consulted Gastroenterology, they would like to try Relistor and enemas. We will resume her home meds and PEG feeds. Deep venous thrombosis prophylaxis. Full code. ROCCO/SHANNON DR: ROCCO/larry TID: [id number]
--- NOTE | 2021-10-23 16:20 | NUR ---
SS following for discharge planning. SS reviewed pt chart and discussed with pt RN. Pt is from home with spouse and is currently on the vent at 30%. BRENDEN and Dr. Giron following. Pt has trach and respiratory equipment established at home. Pt has PEG and Ostomy. Full Code. Pt's spouse provides all cares at home. Pt has home healthcare services with [facility], ; fax [phone]. SS will continue to follow for discharge planning.
[2021-10-23] MEDS: FAMOTIDINE 20 MG TABLET. PEG SCH (17:06)
--- NOTE | 2021-10-23 17:22 | NUR ---
Wound/Ostomy Care Wound Type/Assessment: Patient seen per wound care consult. See wound assessment. patient is well known to us from previous visits. takes very good care of his whom we are also familiar with. Patient has a stage II PU on left ischium and a DTI PU on the right ischium, both are minimal for this bedridden patient. Wounds cleansed, assessed, and measured. Treatment Recommendations/Plan: Recommendations for calazime cream BID and PRN, turn every 2 hours using wedge. calazime applied. No other wounds noted upon complete head to toe assessment. Education provided: Unable to educate patient due to mental status. Offloading surface/device: Patient is currently on a P-500 bed, patient repositioned to left side using wedge, and bilateral heels floated. Recommended Referrals/Tests: N/A Discharge Recommendations for dressings: Dressing change instructions left in room. Wound care will follow up on 10/30/21. Bed lowered and RN at bedside.
[2021-10-23] MEDS: ATORVASTATIN CALCIUM 40 MG TABLET. PEG SCH (21:06)
--- NOTE | 2021-10-23 22:23 | NUR ---
Dr. Mosquera at bedside. Alerted of low urine output of approximately 12cc an hour. Also alerted of low bp when resting 80/90s that increases when patient is awake. Provider informed of RN holding dose of losartan. Provider okay with holding med. Orders for Clinimax given, AM labs, and bolus of NS.
[2021-10-23] MEDS ORDERED: IV NORMAL SALINE 500ML BAG 500 ML IV ONE (23:00)
[2021-10-23] MEDS: AA 4.25 %/CALCIUM/LYTES/D5W 1,000 ML IV SCH (23:55)
[2021-10-24] VITALS (24 sets, daily range): BP systolic 89–134; BP diastolic 43–75
[2021-10-24 06:06] LABS: CALCIUM 9.6 mg/dL (8.5-10.1); CREATININE 0.6 mg/dL (0.6-1.0); GFR 98.8; POTASSIUM 4.4 mmol/L (3.5-5.1)
[2021-10-24 06:36] LABS: BASO % 1 % (0-3); EOS # 0.1 x10^3/uL (0.0-0.7); EOS % 1 % (0-3); HEMATOCRIT 23.9 % (36.0-47.0); HEMOGLOBIN 7.3 g/dL (12.0-15.5); LYMPH # 0.5 x10^3/uL (1.0-4.8); LYMPH % 7 % (24-48); MEAN CORPUSCULAR HEMOGLOBIN 27 pg (25-35); MEAN CORPUSCULAR HGB CONC 31 g/dL (31-37); MEAN CORPUSCULAR VOLUME 90 fL (79-100); MONO # 0.5 x10^3/uL (0.0-1.1); MONO % 7 % (0-9); NEUT % 85 % (31-73); PLATELET COUNT 494 x10^3/uL (140-400); RED BLOOD COUNT 2.67 x10^6/uL (3.50-5.40); RED CELL DISTRIBUTION WIDTH 19.2 % (11.5-14.5); WHITE BLOOD COUNT 7.1 x10^3/uL (4.0-11.0)
[2021-10-24] MEDS: IPRATRPIUM/ALBUTEROL 0.5/2.5MG 3 ML NEBU. NEB SCH ×4 (07:34→19:49)
--- NOTE | 2021-10-24 08:42 | PDOC ---
SURGICAL PROGRESS NOTE DATE: 10/24/21 TIME: 08:41 Subjective vent, opens eyes during exam Unable to obtain ROS Vital Signs Vital Signs Date Time Temp Pulse Resp B/P (MAP) Pulse Ox O2 Delivery O2 Flow Rate FiO2 10/24/21 07:34 100 Ventilator 10/24/21 06:00 75 16 90/47 (61) 10/24/21 04:00 98.0 98.0 I&O Intake and Output 10/24/21 07:00 Output Total 835 ml Balance -835 ml Output Urine Total 835 ml PATIENT HAS A COLVIN: Yes General: Other (opens eyes) HEENT: Other (trach) Abdomen: Soft, Other (ostomy has small amount of stool in bag) Labs Laboratory Tests Test 10/22/21 16:20 10/22/21 17:30 10/22/21 22:32 10/23/21 04:40 White Blood Count 5.5 x10^3/uL (4.0-11.0) 4.6 x10^3/uL (4.0-11.0) Red Blood Count 3.00 x10^6/uL (3.50-5.40) 2.90 x10^6/uL (3.50-5.40) Hemoglobin 8.4 g/dL (12.0-15.5) 7.9 g/dL (12.0-15.5) Hematocrit 25.9 % (36.0-47.0) 25.0 % (36.0-47.0) Mean Corpuscular Volume 86 fL (79-100) 86 fL (79-100) Mean Corpuscular Hemoglobin 28 pg (25-35) 27 pg (25-35) Mean Corpuscular Hemoglobin Concent 33 g/dL (31-37) 32 g/dL (31-37) Red Cell Distribution Width 18.7 % (11.5-14.5) 18.6 % (11.5-14.5) Platelet Count 512 x10^3/uL (140-400) 439 x10^3/uL (140-400) Neutrophils (%) (Auto) 77 % (31-73) 77 % (31-73) Lymphocytes (%) (Auto) 13 % (24-48) 12 % (24-48) Monocytes (%) (Auto) 6 % (0-9) 8 % (0-9) Eosinophils (%) (Auto) 3 % (0-3) 3 % (0-3) Basophils (%) (Auto) 1 % (0-3) 1 % (0-3) Neutrophils # (Auto) 4.2 x10^3/uL (1.8-7.7) 3.6 x10^3/uL (1.8-7.7) Lymphocytes # (Auto) 0.7 x10^3/uL (1.0-4.8) 0.5 x10^3/uL (1.0-4.8) Monocytes # (Auto) 0.4 x10^3/uL (0.0-1.1) 0.4 x10^3/uL (0.0-1.1) Eosinophils # (Auto) 0.2 x10^3/uL (0.0-0.7) 0.1 x10^3/uL (0.0-0.7) Basophils # (Auto) 0.0 x10^3/uL (0.0-0.2) 0.0 x10^3/uL (0.0-0.2) Prothrombin Time 18.8 SEC (11.7-14.0) Prothromb Time International Ratio 1.6 (0.8-1.1) Activated Partial Thromboplast Time 46 SEC (24-38) Sodium Level 141 mmol/L (136-145) 140 mmol/L (136-145) Potassium Level 4.0 mmol/L (3.5-5.1) 3.4 mmol/L (3.5-5.1) Chloride Level 103 mmol/L (98-107) 106 mmol/L (98-107) Carbon Dioxide Level 24 mmol/L (21-32) 24 mmol/L (21-32) Anion Gap 14 (6-14) 10 (6-14) Blood Urea Nitrogen 42 mg/dL (7-20) 35 mg/dL (7-20) Creatinine 0.8 mg/dL (0.6-1.0) 0.6 mg/dL (0.6-1.0) Estimated GFR (Cockcroft-Gault) 70.9 98.8 BUN/Creatinine Ratio 53 (6-20) Glucose Level 144 mg/dL (70-99) 132 mg/dL (70-99) Calcium Level 10.6 mg/dL (8.5-10.1) 9.9 mg/dL (8.5-10.1) Total Bilirubin 0.3 mg/dL (0.2-1.0) Aspartate Amino Transf (AST/SGOT) 20 U/L (15-37) Alanine Aminotransferase (ALT/SGPT) 21 U/L (14-59) Alkaline Phosphatase 94 U/L (46-116) Total Protein 9.0 g/dL (6.4-8.2) Albumin 2.4 g/dL (3.4-5.0) Albumin/Globulin Ratio 0.4 (1.0-1.7) Lipase 155 U/L (73-393) Urine Collection Type Unknown Urine Color (Auto) Yellow Urine Turbidity Hazy Urine pH (Auto) 6.5 (<5.0-8.0) Urine Specific [place] 1.015 (1.000-1.030) Urine Protein (Auto) Negative mg/dL (Negative) Urine Glucose (Auto)(UA) Negative mg/dL (Negative) Urine Ketones (Auto) Negative mg/dL (Negative) Urine Blood (Auto) Moderate (Negative) Urine Nitrite Positive (Negative) Urine Bilirubin (Auto) Negative (Negative) Urine Urobilinogen (Auto) Normal mg/dL (Normal) Urine Leukocyte Esterase (Auto) Large (Negative) Urine RBC 20-40 /HPF (0-2) Urine WBC 20-40 /HPF (0-4) Urine Squamous Epithelial Cells Mod /LPF Urine Bacteria Moderate /HPF (0-FEW) Urine Mucus Slight /LPF O2 Saturation 99 % (92-99) Arterial Blood pH 7.57 (7.35-7.45) Arterial Blood pCO2 at Patient Temp 24 mmHg (35-46) Arterial Blood pO2 at Patient Temp 143 mmHg (65-108) Arterial Blood HCO3 22 mmol/L (21-28) Arterial Blood Base Excess 0 mmol/L (-3-3) FiO2 40 Lactic Acid Level 1.8 mmol/L (0.4-2.0) HM-Szv-O-Type Natriuretic Peptide 208 pg/mL (0-124) Test 10/23/21 08:20 10/24/21 05:00 O2 Saturation 97 % (92-99) Arterial Blood pH 7.44 (7.35-7.45) Arterial Blood pCO2 at Patient Temp 34 mmHg (35-46) Arterial Blood pO2 at Patient Temp 97 mmHg (65-108) Arterial Blood HCO3 22 mmol/L (21-28) Arterial Blood Base Excess -2 mmol/L (-3-3) FiO2 30% ac 16 350 5 White Blood Count 7.1 x10^3/uL (4.0-11.0) Red Blood Count 2.67 x10^6/uL (3.50-5.40) Hemoglobin 7.3 g/dL (12.0-15.5) Hematocrit 23.9 % (36.0-47.0) Mean Corpuscular Volume 90 fL (79-100) Mean Corpuscular Hemoglobin 27 pg (25-35) Mean Corpuscular Hemoglobin Concent 31 g/dL (31-37) Red Cell Distribution Width 19.2 % (11.5-14.5) Platelet Count 494 x10^3/uL (140-400) Neutrophils (%) (Auto) 85 % (31-73) Lymphocytes (%) (Auto) 7 % (24-48) Monocytes (%) (Auto) 7 % (0-9) Eosinophils (%) (Auto) 1 % (0-3) Basophils (%) (Auto) 1 % (0-3) Neutrophils # (Auto) 6.0 x10^3/uL (1.8-7.7) Lymphocytes # (Auto) 0.5 x10^3/uL (1.0-4.8) Monocytes # (Auto) 0.5 x10^3/uL (0.0-1.1) Eosinophils # (Auto) 0.1 x10^3/uL (0.0-0.7) Basophils # (Auto) 0.0 x10^3/uL (0.0-0.2) Sodium Level 141 mmol/L (136-145) Potassium Level 4.4 mmol/L (3.5-5.1) Chloride Level 105 mmol/L (98-107) Carbon Dioxide Level 26 mmol/L (21-32) Anion Gap 10 (6-14) Blood Urea Nitrogen 29 mg/dL (7-20) Creatinine 0.6 mg/dL (0.6-1.0) Estimated GFR (Cockcroft-Gault) 98.8 Glucose Level 188 mg/dL (70-99) Calcium Level 9.6 mg/dL (8.5-10.1) Laboratory Tests Test 10/24/21 05:00 White Blood Count 7.1 x10^3/uL (4.0-11.0) Red Blood Count 2.67 x10^6/uL (3.50-5.40) Hemoglobin 7.3 g/dL (12.0-15.5) Hematocrit 23.9 % (36.0-47.0) Mean Corpuscular Volume 90 fL (79-100) Mean Corpuscular Hemoglobin 27 pg (25-35) Mean Corpuscular Hemoglobin Concent 31 g/dL (31-37) Red Cell Distribution Width 19.2 % (11.5-14.5) Platelet Count 494 x10^3/uL (140-400) Neutrophils (%) (Auto) 85 % (31-73) Lymphocytes (%) (Auto) 7 % (24-48) Monocytes (%) (Auto) 7 % (0-9) Eosinophils (%) (Auto) 1 % (0-3) Basophils (%) (Auto) 1 % (0-3) Neutrophils # (Auto) 6.0 x10^3/uL (1.8-7.7) Lymphocytes # (Auto) 0.5 x10^3/uL (1.0-4.8) Monocytes # (Auto) 0.5 x10^3/uL (0.0-1.1) Eosinophils # (Auto) 0.1 x10^3/uL (0.0-0.7) Basophils # (Auto) 0.0 x10^3/uL (0.0-0.2) Sodium Level 141 mmol/L (136-145) Potassium Level 4.4 mmol/L (3.5-5.1) Chloride Level 105 mmol/L (98-107) Carbon Dioxide Level 26 mmol/L (21-32) Anion Gap 10 (6-14) Blood Urea Nitrogen 29 mg/dL (7-20) Creatinine 0.6 mg/dL (0.6-1.0) Estimated GFR (Cockcroft-Gault) 98.8 Glucose Level 188 mg/dL (70-99) Calcium Level 9.6 mg/dL (8.5-10.1) Problem List Problems Medical Problems: (1) Abdominal pain Status: Acute Assessment/Plan bowel regimen medical management no surgical plans Justicifation of Admission Dx: Justifications for Admission: Justification of Admission Dx: N/A ANNE MEDINA APRN Oct 24, 2021 08:42
[2021-10-24] MEDS: LOSARTAN POTASSIUM 25 MG TABLET. PEG SCH (09:00)
[2021-10-24] MEDS: MODAFINIL PO SCH (09:00)
[2021-10-24] MEDS: SPIRONOLACTONE 25 MG TABLET PEG SCH ×2 (09:00→22:01)
[2021-10-24] MEDS: BACLOFEN 10 MG TABLET. PEG SCH ×3 (09:30→21:59)
[2021-10-24] MEDS: diazePAM 2 MG TABLET PEG SCH ×3 (09:31→21:59)
[2021-10-24] MEDS: APIXABAN 5 MG TABLET. FT SCH ×2 (09:31→21:59)
[2021-10-24] MEDS: SENNOSIDES/DOCUSATE 8.6/50MG TABLET. PO SCH ×2 (09:31→21:59)
[2021-10-24] MEDS: MULTIVITAMINS,THERAPEUTIC 5 ML ORAL LIQUID. PEG SCH (09:31)
[2021-10-24] MEDS: levETIRAcetam 500 MG/5 ML ORAL SOLUTION. PEG SCH ×2 (09:31→22:00)
[2021-10-24] MEDS: PARoxetine 10 MG TABLET PEG SCH (09:31)
--- NOTE | 2021-10-24 09:31 | PDOC ---
PULMONARY PROGRESS NOTES DATE: 10/24/21 TIME: 09:31 Vitals Vital Signs Date Time Temp Pulse Resp B/P (MAP) Pulse Ox O2 Delivery O2 Flow Rate FiO2 10/24/21 09:09 100 Ventilator 10/24/21 06:00 75 16 90/47 (61) 10/24/21 04:00 98.0 98.0 General: No acute distress Lungs: Clear, Other Cardiovascular: S1, S2 Abdomen: Soft, Non-tender, Other Extremities: Other Labs Laboratory Tests Test 10/22/21 16:20 10/22/21 17:30 10/22/21 22:32 10/23/21 04:40 White Blood Count 5.5 x10^3/uL (4.0-11.0) 4.6 x10^3/uL (4.0-11.0) Red Blood Count 3.00 x10^6/uL (3.50-5.40) 2.90 x10^6/uL (3.50-5.40) Hemoglobin 8.4 g/dL (12.0-15.5) 7.9 g/dL (12.0-15.5) Hematocrit 25.9 % (36.0-47.0) 25.0 % (36.0-47.0) Mean Corpuscular Volume 86 fL (79-100) 86 fL (79-100) Mean Corpuscular Hemoglobin 28 pg (25-35) 27 pg (25-35) Mean Corpuscular Hemoglobin Concent 33 g/dL (31-37) 32 g/dL (31-37) Red Cell Distribution Width 18.7 % (11.5-14.5) 18.6 % (11.5-14.5) Platelet Count 512 x10^3/uL (140-400) 439 x10^3/uL (140-400) Neutrophils (%) (Auto) 77 % (31-73) 77 % (31-73) Lymphocytes (%) (Auto) 13 % (24-48) 12 % (24-48) Monocytes (%) (Auto) 6 % (0-9) 8 % (0-9) Eosinophils (%) (Auto) 3 % (0-3) 3 % (0-3) Basophils (%) (Auto) 1 % (0-3) 1 % (0-3) Neutrophils # (Auto) 4.2 x10^3/uL (1.8-7.7) 3.6 x10^3/uL (1.8-7.7) Lymphocytes # (Auto) 0.7 x10^3/uL (1.0-4.8) 0.5 x10^3/uL (1.0-4.8) Monocytes # (Auto) 0.4 x10^3/uL (0.0-1.1) 0.4 x10^3/uL (0.0-1.1) Eosinophils # (Auto) 0.2 x10^3/uL (0.0-0.7) 0.1 x10^3/uL (0.0-0.7) Basophils # (Auto) 0.0 x10^3/uL (0.0-0.2) 0.0 x10^3/uL (0.0-0.2) Prothrombin Time 18.8 SEC (11.7-14.0) Prothromb Time International Ratio 1.6 (0.8-1.1) Activated Partial Thromboplast Time 46 SEC (24-38) Sodium Level 141 mmol/L (136-145) 140 mmol/L (136-145) Potassium Level 4.0 mmol/L (3.5-5.1) 3.4 mmol/L (3.5-5.1) Chloride Level 103 mmol/L (98-107) 106 mmol/L (98-107) Carbon Dioxide Level 24 mmol/L (21-32) 24 mmol/L (21-32) Anion Gap 14 (6-14) 10 (6-14) Blood Urea Nitrogen 42 mg/dL (7-20) 35 mg/dL (7-20) Creatinine 0.8 mg/dL (0.6-1.0) 0.6 mg/dL (0.6-1.0) Estimated GFR (Cockcroft-Gault) 70.9 98.8 BUN/Creatinine Ratio 53 (6-20) Glucose Level 144 mg/dL (70-99) 132 mg/dL (70-99) Calcium Level 10.6 mg/dL (8.5-10.1) 9.9 mg/dL (8.5-10.1) Total Bilirubin 0.3 mg/dL (0.2-1.0) Aspartate Amino Transf (AST/SGOT) 20 U/L (15-37) Alanine Aminotransferase (ALT/SGPT) 21 U/L (14-59) Alkaline Phosphatase 94 U/L (46-116) Total Protein 9.0 g/dL (6.4-8.2) Albumin 2.4 g/dL (3.4-5.0) Albumin/Globulin Ratio 0.4 (1.0-1.7) Lipase 155 U/L (73-393) Urine Collection Type Unknown Urine Color (Auto) Yellow Urine Turbidity Hazy Urine pH (Auto) 6.5 (<5.0-8.0) Urine Specific [place] 1.015 (1.000-1.030) Urine Protein (Auto) Negative mg/dL (Negative) Urine Glucose (Auto)(UA) Negative mg/dL (Negative) Urine Ketones (Auto) Negative mg/dL (Negative) Urine Blood (Auto) Moderate (Negative) Urine Nitrite Positive (Negative) Urine Bilirubin (Auto) Negative (Negative) Urine Urobilinogen (Auto) Normal mg/dL (Normal) Urine Leukocyte Esterase (Auto) Large (Negative) Urine RBC 20-40 /HPF (0-2) Urine WBC 20-40 /HPF (0-4) Urine Squamous Epithelial Cells Mod /LPF Urine Bacteria Moderate /HPF (0-FEW) Urine Mucus Slight /LPF O2 Saturation 99 % (92-99) Arterial Blood pH 7.57 (7.35-7.45) Arterial Blood pCO2 at Patient Temp 24 mmHg (35-46) Arterial Blood pO2 at Patient Temp 143 mmHg (65-108) Arterial Blood HCO3 22 mmol/L (21-28) Arterial Blood Base Excess 0 mmol/L (-3-3) FiO2 40 Lactic Acid Level 1.8 mmol/L (0.4-2.0) TR-Uqp-N-Type Natriuretic Peptide 208 pg/mL (0-124) Test 10/23/21 08:20 10/24/21 05:00 O2 Saturation 97 % (92-99) Arterial Blood pH 7.44 (7.35-7.45) Arterial Blood pCO2 at Patient Temp 34 mmHg (35-46) Arterial Blood pO2 at Patient Temp 97 mmHg (65-108) Arterial Blood HCO3 22 mmol/L (21-28) Arterial Blood Base Excess -2 mmol/L (-3-3) FiO2 30% ac 16 350 5 White Blood Count 7.1 x10^3/uL (4.0-11.0) Red Blood Count 2.67 x10^6/uL (3.50-5.40) Hemoglobin 7.3 g/dL (12.0-15.5) Hematocrit 23.9 % (36.0-47.0) Mean Corpuscular Volume 90 fL (79-100) Mean Corpuscular Hemoglobin 27 pg (25-35) Mean Corpuscular Hemoglobin Concent 31 g/dL (31-37) Red Cell Distribution Width 19.2 % (11.5-14.5) Platelet Count 494 x10^3/uL (140-400) Neutrophils (%) (Auto) 85 % (31-73) Lymphocytes (%) (Auto) 7 % (24-48) Monocytes (%) (Auto) 7 % (0-9) Eosinophils (%) (Auto) 1 % (0-3) Basophils (%) (Auto) 1 % (0-3) Neutrophils # (Auto) 6.0 x10^3/uL (1.8-7.7) Lymphocytes # (Auto) 0.5 x10^3/uL (1.0-4.8) Monocytes # (Auto) 0.5 x10^3/uL (0.0-1.1) Eosinophils # (Auto) 0.1 x10^3/uL (0.0-0.7) Basophils # (Auto) 0.0 x10^3/uL (0.0-0.2) Sodium Level 141 mmol/L (136-145) Potassium Level 4.4 mmol/L (3.5-5.1) Chloride Level 105 mmol/L (98-107) Carbon Dioxide Level 26 mmol/L (21-32) Anion Gap 10 (6-14) Blood Urea Nitrogen 29 mg/dL (7-20) Creatinine 0.6 mg/dL (0.6-1.0) Estimated GFR (Cockcroft-Gault) 98.8 Glucose Level 188 mg/dL (70-99) Calcium Level 9.6 mg/dL (8.5-10.1) Laboratory Tests Test 10/24/21 05:00 White Blood Count 7.1 x10^3/uL (4.0-11.0) Red Blood Count 2.67 x10^6/uL (3.50-5.40) Hemoglobin 7.3 g/dL (12.0-15.5) Hematocrit 23.9 % (36.0-47.0) Mean Corpuscular Volume 90 fL (79-100) Mean Corpuscular Hemoglobin 27 pg (25-35) Mean Corpuscular Hemoglobin Concent 31 g/dL (31-37) Red Cell Distribution Width 19.2 % (11.5-14.5) Platelet Count 494 x10^3/uL (140-400) Neutrophils (%) (Auto) 85 % (31-73) Lymphocytes (%) (Auto) 7 % (24-48) Monocytes (%) (Auto) 7 % (0-9) Eosinophils (%) (Auto) 1 % (0-3) Basophils (%) (Auto) 1 % (0-3) Neutrophils # (Auto) 6.0 x10^3/uL (1.8-7.7) Lymphocytes # (Auto) 0.5 x10^3/uL (1.0-4.8) Monocytes # (Auto) 0.5 x10^3/uL (0.0-1.1) Eosinophils # (Auto) 0.1 x10^3/uL (0.0-0.7) Basophils # (Auto) 0.0 x10^3/uL (0.0-0.2) Sodium Level 141 mmol/L (136-145) Potassium Level 4.4 mmol/L (3.5-5.1) Chloride Level 105 mmol/L (98-107) Carbon Dioxide Level 26 mmol/L (21-32) Anion Gap 10 (6-14) Blood Urea Nitrogen 29 mg/dL (7-20) Creatinine 0.6 mg/dL (0.6-1.0) Estimated GFR (Cockcroft-Gault) 98.8 Glucose Level 188 mg/dL (70-99) Calcium Level 9.6 mg/dL (8.5-10.1) Medications Active Scripts Medications Dose Route/Sig Max Daily Dose Days Date Category Lopressor (Metoprolol Tartrate) 100 Mg Tablet 25 Mg PEG TID 10/22/21 Reported Azithromycin Tablet (Azithromycin) 250 Mg Tablet 1 Tab PEG HS 10/22/21 Reported Keppra (Levetiracetam) 100 Mg/1 Ml Solution 7.5 Ml PEG BID 10/22/21 Reported Atorvastatin Calcium 80 Mg Tablet 1 Tab PO DAILY 10/22/21 Reported Modafinil 200 Mg Tablet 1 Tab PO DAILY 10/22/21 Reported Eliquis (Apixaban) 5 Mg Tablet 1 Tab BID 10/22/21 Reported Nitrofurantoin [place]-Mcr 100 Mg (Nitrofurantoin Monohyd/M-Cryst) 100 Mg Capsule 1 Cap PO BID 10/22/21 Reported Keflex (Cephalexin) 500 Mg Capsule 1 Cap PO TID 7 06/21/21 Rx Duoneb 0.5-3(2.5) Mg/3 Ml (Albuterol/Ipratropium) 3 Ml Ampul.neb 3 Ml NEB RTQID 30 04/02/21 Rx Amox Tr-K Clv 400-57/5 Susp (Amoxicillin/Potassium Clav) 400 Mg/5 Ml Susp.recon 10 Ml PEG Q12HR 7 04/02/21 Rx Cozaar (Losartan Potassium) 25 Mg Tablet 25 Mg PO DAILY 02/28/21 Reported Spironolactone 25 Mg Tablet 25 Mg PEG BID 07/04/19 Reported [baclofen pump] 0 MC 07/04/19 Reported Probiotic (Lactobacillus Combo No.10) 1 Each Capsule 1 Cap PEG DAILY 07/04/19 Reported Multivitamins With Minerals (Multivitamin With Minerals) 1 Each Tablet 0.5 Cap PO PEG 07/04/19 Reported Pepcid (Famotidine) 20 Mg Tablet 20 Mg PEG DAILYWSUP 07/04/19 Reported Vitamin C (Ascorbic Acid) 500 Mg Capsule.er 500 Mg PEG DAILY 07/04/19 Reported Atorvastatin Calcium 80 Mg Tablet 80 Mg PEG HS 11/01/18 Reported Probiotic Plus & Cranberry Cap (Cran/C/B.coag/Fos/L.acid/L.rha) 1 Each Capsule 1 Each PEG DAILY 01/30/17 Reported Keppra (Levetiracetam) 500 Mg Tablet 750 Mg PEG BID 01/30/17 Reported Xopenex (Levalbuterol Hcl) 0.63 Mg/3 Ml Vial.neb 1 Vial NEB TID 12/27/14 Reported Valium (Diazepam) 2 Mg Tablet 2 Mg PEG TID 3/25/14 Reported Spiriva (Tiotropium [place]) 18 Mcg Cap.w.dev 18 Mcg IH DAILY 07/28/13 Reported Paxil (Paroxetine Hcl) 10 Mg/5 Ml Oral.susp 10 Mg PEG DAILY 07/28/13 Reported Baclofen 10 Mg Tablet 10 Mg PEG TID 07/28/13 Reported Impression . Dictated Respiratory status compensated Okay to discharge from my standpoint of view CHRISTOPHER JAMISON MD Oct 24, 2021 09:31
[2021-10-24] MEDS ORDERED: ANTI-COAG MONITOR BY PHARMACY. MC PRN (10:00)
--- NOTE | 2021-10-24 10:16 | PDOC ---
Date of Service: DATE: 10/24/21 TIME: 10:13 Objective: Objective: Ostomy functioning per nurse, has reported issues w/ baclofen pump. Vital Signs: Vital Signs Date Time Temp Pulse Resp B/P (MAP) Pulse Ox O2 Delivery O2 Flow Rate FiO2 10/24/21 09:09 100 Ventilator 10/24/21 06:00 75 16 90/47 (61) 10/24/21 04:00 98.0 98.0 Labs: Laboratory Tests Test 10/24/21 05:00 White Blood Count 7.1 x10^3/uL Red Blood Count 2.67 x10^6/uL Hemoglobin 7.3 g/dL Hematocrit 23.9 % Mean Corpuscular Volume 90 fL Mean Corpuscular Hemoglobin 27 pg Mean Corpuscular Hemoglobin Concent 31 g/dL Red Cell Distribution Width 19.2 % Platelet Count 494 x10^3/uL Neutrophils (%) (Auto) 85 % Lymphocytes (%) (Auto) 7 % Monocytes (%) (Auto) 7 % Eosinophils (%) (Auto) 1 % Basophils (%) (Auto) 1 % Neutrophils # (Auto) 6.0 x10^3/uL Lymphocytes # (Auto) 0.5 x10^3/uL Monocytes # (Auto) 0.5 x10^3/uL Eosinophils # (Auto) 0.1 x10^3/uL Basophils # (Auto) 0.0 x10^3/uL Sodium Level 141 mmol/L Potassium Level 4.4 mmol/L Chloride Level 105 mmol/L Carbon Dioxide Level 26 mmol/L Anion Gap 10 Blood Urea Nitrogen 29 mg/dL Creatinine 0.6 mg/dL Estimated GFR (Cockcroft-Gault) 98.8 Glucose Level 188 mg/dL Calcium Level 9.6 mg/dL CULTURE URINE Preliminary GREATER THAN 100,000 CFU/ML PSEUDOMONAS AERUGINOSA on 10/24/21 at 0749. PE: GEN: chronically ill LUNGS: trach/vent HEART: RRR ABD: soft brown stool in left-sided ostomy NEURO/PSYCH: opens eyes A/P: ?constipation - if ever an issue, now resolved MS, chronic resp failure w/ trach and G tube Chronic anemia on Eliquis, UTI -- Treat constipation as needed - past notes indicate needs irrigation - repeat enemas PRN. DC per primary. Justicifation of Admission Dx: Justifications for Admission: Justification of Admission Dx: N/A MAYI MCKEON Oct 24, 2021 10:16
--- NOTE | 2021-10-24 11:44 | PDOC ---
[facility] PROGRESS NOTE Date of Service DOS: DATE: 10/24/21 TIME: 11:43 Chief Complaint Chief Complaint Constipation History of the following; Advanced multiple sclerosis, tracheostomy, respiratory failure, previous pneumonia, seizures, hyperlipidemia, anxiety, hypertension, AFib, urinary incontinence, tracheostomy, G-tube, cecostomy tube, right hemicolectomy, baclofen pump. History of Present Illness History of Present Illness 10/24/2021 Patient seen and examined She is in the ICU on the vent via tracheostomy AC/16/350/30 percent with 5 of PEEP Her PEG looks clean dry and intact Her trach looks clean dry and intact Has a Smalls to bedside drainage We have managed to get her bowels to move and her ostomy seems to be working well Discussed with RN Chart reviewed She is still on Clinimix We hope to change that back to her PEG feeds later today Discussed with case management Plans to going discharge this afternoon Vitals/I&O Vitals/I&O: Vital Signs Date Time Temp Pulse Resp B/P (MAP) Pulse Ox O2 Delivery O2 Flow Rate FiO2 10/24/21 11:34 100 Ventilator 10/24/21 06:00 75 16 90/47 (61) 10/24/21 04:00 98.0 98.0 I & O 10/23/21 10/23/21 10/24/21 15:00 23:00 07:00 Output Total 335 ml 200 ml 300 ml Balance -335 ml -200 ml -300 ml Physical Exam General: Other (opens eyes) Lungs: Clear, Other Abdomen: Soft, Other (ostomy has small amount of stool in bag) Labs Labs: Laboratory Tests Test 10/24/21 05:00 White Blood Count 7.1 x10^3/uL (4.0-11.0) Red Blood Count 2.67 x10^6/uL (3.50-5.40) Hemoglobin 7.3 g/dL (12.0-15.5) Hematocrit 23.9 % (36.0-47.0) Mean Corpuscular Volume 90 fL (79-100) Mean Corpuscular Hemoglobin 27 pg (25-35) Mean Corpuscular Hemoglobin Concent 31 g/dL (31-37) Red Cell Distribution Width 19.2 % (11.5-14.5) Platelet Count 494 x10^3/uL (140-400) Neutrophils (%) (Auto) 85 % (31-73) Lymphocytes (%) (Auto) 7 % (24-48) Monocytes (%) (Auto) 7 % (0-9) Eosinophils (%) (Auto) 1 % (0-3) Basophils (%) (Auto) 1 % (0-3) Neutrophils # (Auto) 6.0 x10^3/uL (1.8-7.7) Lymphocytes # (Auto) 0.5 x10^3/uL (1.0-4.8) Monocytes # (Auto) 0.5 x10^3/uL (0.0-1.1) Eosinophils # (Auto) 0.1 x10^3/uL (0.0-0.7) Basophils # (Auto) 0.0 x10^3/uL (0.0-0.2) Sodium Level 141 mmol/L (136-145) Potassium Level 4.4 mmol/L (3.5-5.1) Chloride Level 105 mmol/L (98-107) Carbon Dioxide Level 26 mmol/L (21-32) Anion Gap 10 (6-14) Blood Urea Nitrogen 29 mg/dL (7-20) Creatinine 0.6 mg/dL (0.6-1.0) Estimated GFR (Cockcroft-Gault) 98.8 Glucose Level 188 mg/dL (70-99) Calcium Level 9.6 mg/dL (8.5-10.1) Assessment and Plan Assessmemt and Plan Problems Medical Problems: (1) Abdominal pain Status: Acute Constipation History of the following; Advanced multiple sclerosis, tracheostomy, respiratory failure, previous pneumonia, seizures, hyperlipidemia, anxiety, hypertension, AFib, urinary incontinence, tracheostomy, G-tube, cecostomy tube, right hemicolectomy, baclofen pump. Plan Discharge see dictation Comment Review of Relevant I have reviewed the following items lucila (where applicable) has been applied. Medications: Current Medications Medications (Trade) Dose Ordered Sig/Lidia Route PRN Reason Start Time Stop Time Status Last Admin Dose Admin Famotidine (Pepcid) 20 mg DAILYWSUP PEG 10/23/21 17:00 10/23/21 17:06 Atorvastatin Calcium (Lipitor) 80 mg QHS PEG 10/23/21 21:00 10/23/21 21:06 Amino Acids/ Electrolytes/ Dextrose 1,000 ml @ 75 mls/hr [id number] IV 10/23/21 23:00 10/23/21 23:55 Sodium Chloride 500 ml @ 500 mls/hr 1X ONCE IV 10/23/21 23:00 10/23/21 23:59 DC 10/23/21 23:55 Justifications for Admission Other Justification RIGOBERTO VORA III DO Oct 24, 2021 11:44
[2021-10-24] MEDS ORDERED: LACT20SO PEG (11:46)
--- NOTE | 2021-10-24 11:48 | SNU/HH DC ---
DISCHARGE WITH HOME HEALTH DISCHARGE INFORMATION: Final Diagnosis: Problems Medical Problems: (1) Abdominal pain Status: Acute Condition on Discharge: Stable CODE STATUS: Code Status: Full HOME HEALTH: Face to Face: I certify this patient is under my care and that I, or a nurse practitioner or physician's printer's assistant working with me, had a face to face encounter that meets the physician face to face encounter requirements with this patient on []. Medical Complications: Other (MS) [facility]ci For: Assess Cardiopulm Status RN For Eval/Treatment: Yes Physical Therapy For: Evalulation/Treatment Home Health Aide For: Self-care [employer]OVER For: Community Resources Pt Meets Homebound Status: Other: (Severe MS) POST DISCHARGE ORDERS: Activity Instructions for Disc: Resume previous activity Weight Bearing Status after Di: As tolerated, Non weight bearing DIET AFTER DISCHARGE: Okay to resume her previous PEG feeds Wound/Incision Care: Keep wound/cast CDI CHECKS AFTER DISCHARGE: Checks after discharge: Check blood press - daily, Check blood sugar, ac/hs, Check your Temp as needed FOLLOW-UP: DC TO SNF LABS: CBC, CMP TREATMENT/EQUIPMENT ORDERS: Adaptive Equipment Issued: None Discharge Respiratory Equipmen: Oxygen, Nebulizer CERTIFICATION STATEMENT: Certification Statement: Certification Statement: Based on the above finding, I certify that this patient is confined to the home and needs intermittent detention care, physical therapy and/or speech therapy, or continues to need occupational therapy.~ This patient is under my care, and I have initiated the establishment of the plan of care.~ This patient will be followed by myself or a community physician who will periodically review the plan of care. Home Meds Active Scripts Lactulose (LACTULOSE) 20 Gm/30 Ml Solution, 20 GM PEG PRN Q12HR PRN for CONSTIPATION 2ND CHOICE for 10 Days, #120 MISC Prov:DIONY,RIGOBERTO K III DO 10/24/21 Cephalexin (KEFLEX) 500 Mg Capsule, 1 CAP PO TID for 7 Days, #21 CAP Prov:EILEEN GARCIA PRODUCT COORDINATOR 06/21/21 Ipratropium/Albuterol Sulfate (DUONEB 0.5-3(2.5) MG/3 ML) 3 Ml Ampul.neb, 3 ML NEB RTQID for BREATHING for 30 Days, #120 EACH Prov:ANNI ZEPEDA MD 04/02/21 Amoxicillin/Potassium Clav (AMOX TR-K CLV 400-57/5 SUSP) 400 Mg/5 Ml Susp.recon, 10 ML PEG Q12HR for INFECTION for 7 Days, #14 MISC Prov:ANNI ZEPEDA MD 04/02/21 Reported Medications Metoprolol Tartrate (Lopressor) 100 Mg Tablet, 25 MG PEG TID for Blood Pressure, TAB 10/22/21 Azithromycin (AZITHROMYCIN TABLET) 250 Mg Tablet, 1 TAB PEG HS for Broncial infection 10/22/21 Levetiracetam (KEPPRA) 100 Mg/1 Ml Solution, 7.5 ML PEG BID for Anti-seizure 10/22/21 Atorvastatin Calcium (Atorvastatin Calcium) 80 Mg Tablet, 1 TAB PO DAILY for Cholesterol 10/22/21 Modafinil (MODAFINIL) 200 Mg Tablet, 1 TAB PO DAILY for Stimulant 10/22/21 Apixaban (ELIQUIS) 5 Mg Tablet, 1 TAB BID for anticoagulant 10/22/21 Nitrofurantoin Monohyd/M-Cryst (NITROFURANTOIN MONO-MCR 100 MG) 100 Mg Capsule, 1 CAP PO BID for antibiotic 10/22/21 Losartan Potassium (COZAAR ) 25 Mg Tablet, 25 MG PO DAILY for HYPERTENSION, TAB 02/28/21 Spironolactone (SPIRONOLACTONE) 25 Mg Tablet, 25 MG PEG BID for control extra fluids, TAB 07/04/19 [baclofen pump] No Conflict Check, 0 MC for control spasms 07/04/19 Lactobacillus Combo No.10 (PROBIOTIC) 1 Each Capsule, 1 CAP PEG DAILY for colon health, CAP 07/04/19 Multivitamin With Minerals (MULTIVITAMINS WITH MINERALS) 1 Each Tablet, 0.5 CAP PO peg for supplement, TAB 07/04/19 Famotidine (PEPCID) 20 Mg Tablet, 20 MG PEG DAILYWSUP for prevent stomach irritation, TAB 07/04/19 Ascorbic Acid (VITAMIN C) 500 Mg Capsule.er, 500 MG PEG DAILY for supplement, CAP.SR 07/04/19 Atorvastatin Calcium (ATORVASTATIN CALCIUM) 80 Mg Tablet, 80 MG PEG HS for FOR CHOLESTEROL, #30 TAB 0 Refills 11/01/18 Cran/C/B.coag/Fos/L.acid/L.rha (Probiotic Plus & Cranberry Cap) 1 Each Capsule, 1 EACH PEG DAILY for prevent uti, CAP 7/14/17 Levetiracetam (KEPPRA) 500 Mg Tablet, 750 MG PEG BID for prevent seizures, TAB 01/30/17 Levalbuterol Hcl (XOPENEX) 0.63 Mg/3 Ml Vial.neb, 1 VIAL NEB TID, #72 ML 2 Refills 12/27/14 Diazepam (VALIUM) 2 Mg Tablet, 2 MG PEG TID for prevent anxiety 10/11/13 Tiotropium [place] (SPIRIVA) 18 Mcg Cap.w.dev, 18 MCG IH DAILY 07/28/13 Paroxetine Hcl (PAXIL) 10 Mg/5 Ml Oral.susp, 10 MG PEG DAILY for antidepressant 07/28/13 Baclofen (BACLOFEN) 10 Mg Tablet, 10 MG PEG TID for prevent spasms 07/28/13 Discontinued Reported Medications Paroxetine Hcl (PAROXETINE HCL) 10 Mg Tablet, 1 TAB PEG DAILY for SSRI 10/22/21 Losartan Potassium (Losartan Potassium) 50 Mg Tablet, 0.5 TAB PO DAILY for Blood Pressure 10/22/21 Diazepam (DIAZEPAM) 2 Mg Tablet, 1 TAB PO TID for Anxiety 10/22/21 Metoprolol Tartrate (METOPROLOL TARTRATE) 25 Mg Tablet, 1.5 TAB PEG BID for bp control, #180 TAB 1 Refill 12/28/14 RIGOBERTO VORA III DO Oct 24, 2021 11:48
--- NOTE | 2021-10-24 12:42 | DS ---
DATE OF DISCHARGE: 10/24/2021 ADMISSION DIAGNOSIS: Constipation. DISCHARGE DIAGNOSES: Resolving constipation; history of severe multiple sclerosis; history of tracheostomy, chronically on the ventilator; history of colostomy; history of previous pneumonia; seizures; hyperlipidemia; anxiety; hypertension; atrial fibrillation; urinary incontinence; gastrostomy tube; cecostomy tube; history of right hemicolectomy; history of baclofen pump. CONSULTS: GI and General Surgery. PROCEDURES: None. 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 She is on the vent at home. She has a PEG feed. Basically, she has developed constipation. She was brought in, had no stool in a couple of weeks. We consulted GI. They tried Relistor and enemas. Her bowels were now moving. I saw and examined her today. She seems to be at her baseline. I discussed the case with vocational case manager and her nurse. We will go ahead and discharge with home health. DISPOSITION: Home with home health. ACTIVITY: Bed rest. DIET: Resume her previous PEG feeds. DISCHARGE MEDICATIONS: Lactulose 20 grams per PEG q.12, Augmentin 400 q.12, Eliquis 5 b.i.d., vitamin C, atorvastatin 80 a day, azithromycin 250 per PEG daily at bedtime, baclofen 10 per PEG t.i.d., Keflex 500 t.i.d., cranberry vitamins, Valium 2 per PEG t.i.d., Pepcid 20 b.i.d., albuterol, lactobacillus, Keppra 750 b.i.d., losartan 25 a day, metoprolol 25 a day, modafinil 200 daily, multiple vitamins, nitrofurantoin 1 capsule b.i.d., paroxetine 10 per PEG daily, Aldactone 25 a day, Spiriva 18 mcg inhalation daily. TOTAL TIME: [address]: Lena TID: [id number]
[2021-10-24] MEDS ORDERED: CIPR250T PO (14:10)
[2021-10-24] MEDS: AA 4.25 %/CALCIUM/LYTES/D5W 1,000 ML IV SCH (14:56)
[2021-10-24] MEDS: CIPROFLOXACIN HCL 250 MG TABLET. PEG SCH ×2 (14:56→21:59)
--- NOTE | 2021-10-24 16:10 | NUR ---
SS following up with discharge planning. SS reviewed pt chart and discussed with pt RN. Pt is currently on the vent at 30%. Pt is on IV Clinimix. Pt has [facility], ; fax [phone]. Discharge order was on the chart for home with home healthcare, but discharge was cancelled due to medical reasons per Dr. Mosquera. SS will continue to follow for discharge planning.
[2021-10-24] MEDS: FAMOTIDINE 20 MG TABLET. PEG SCH (18:27)
--- NOTE | 2021-10-24 18:28 | CONS ---
DATE OF CONSULTATION: 10/24/2021 ATTENDING PHYSICIAN: Kiki Mosquera DO CONSULTING PHYSICIAN: Karo Brown MD REASON FOR CONSULTATION: The patient is seen in pulmonary consultation at the request of Dr. Mosquera for chronic respiratory failure, chronic vent support, chronic trach. HISTORY OF PRESENT ILLNESS: The patient is a 71-year-old, well known to me with end-stage multiple sclerosis. Her , who is a primary caregiver who takes care of her at home. She is on chronic vent. She has had a chronic trach in place for many years now. She presented to the Emergency Room, not having a bowel movement for 3 weeks. Once again the patient has a trach and ventilator at home. She cannot communicate at this time. She is down to moving only her eyes. She presented with no bowel movement for the past 3 weeks. She was admitted. I was asked to see her in consultation for chronic respiratory failure. Both GI and surgery have been consulted. PAST MEDICAL HISTORY: Remarkable for chronic respiratory failure, advanced. Multiple sclerosis. She is status post trach. She has had previous admissions for respiratory failure, multifactorial with recurrent pneumonia and aspiration, recurrent pleural effusion. She has had previous surgery on the coccyx for chronic decubitus ulcer. She is now status post G-tube. She has a cystostomy tube. She has had a previous right hemicolectomy. She also has a baclofen pump. ALLERGIES: No known drug allergies. FAMILY HISTORY: Diabetes. SOCIAL HISTORY: She lives at home with her who is a primary caregiver. MEDICATIONS: List was reviewed. REVIEW OF SYSTEMS: Unobtainable secondary to patient's condition. PHYSICAL EXAMINATION: GENERAL: The patient was in no respiratory distress. She normally recognizes me, at this time she did not recognize me. She was unable to communicate in any way. I asked her to blink her eyes, she did not. VITAL SIGNS: Noticed, they were stable. HEENT: Eyes: The sclerae were nonicteric. NECK: Trach in place. CHEST: Full expansion. LUNGS: Bilaterally clear. CARDIOVASCULAR: Regular rate and rhythm. ABDOMEN: Soft. Ostomy in place. PEG in place. EXTREMITIES: No clubbing or cyanosis. Minimal edema. LABORATORY DATA: White count was normal. Arterial blood gas; pH 7.44, PaCO2 of 34, pO2 of 97. Electrolytes were noted. BUN was 29, creatinine 0.6, albumin was low. IMPRESSION: 1. Chronic respiratory failure. 2. Constipation. 3. CT with gallstones, no obstruction. 4. Status post previous colectomy. 5. Status post PEG and ostomy. PLAN: 1. Respiratory status is compensated. Continue current vent settings. 2. Follow GI input. 3. DVT prophylaxis. 4. Nutritional support. SALOMON DR: Gomez TID: [id number]
[2021-10-24] MEDS: ATORVASTATIN CALCIUM 40 MG TABLET. PEG SCH (21:59)
[2021-10-25] VITALS (17 sets, daily range): BP systolic 84–121; BP diastolic 41–63
[2021-10-25] MEDS: AA 4.25 %/CALCIUM/LYTES/D5W 1,000 ML IV SCH ×2 (03:57→15:00)
[2021-10-25] MEDS: IPRATRPIUM/ALBUTEROL 0.5/2.5MG 3 ML NEBU. NEB SCH ×3 (07:50→15:46)
--- NOTE | 2021-10-25 08:08 | PDOC ---
PULMONARY PROGRESS NOTES DATE: 10/25/21 TIME: 08:08 Subjective Patient awake alert no respiratory distress noted currently on assist control tidal volume of 350 rate of 16 Vitals Vital Signs Date Time Temp Pulse Resp B/P (MAP) Pulse Ox O2 Delivery O2 Flow Rate FiO2 10/25/21 07:53 100 Ventilator 10/25/21 06:00 66 22 87/49 (62) 10/25/21 04:00 97.5 97.5 General: Alert, No acute distress Lungs: Clear Cardiovascular: S1, S2 Abdomen: Soft, Non-tender, Other Extremities: Other Skin: Warm Labs Laboratory Tests Test 10/23/21 08:20 10/24/21 05:00 O2 Saturation 97 % (92-99) Arterial Blood pH 7.44 (7.35-7.45) Arterial Blood pCO2 at Patient Temp 34 mmHg (35-46) Arterial Blood pO2 at Patient Temp 97 mmHg (65-108) Arterial Blood HCO3 22 mmol/L (21-28) Arterial Blood Base Excess -2 mmol/L (-3-3) FiO2 30% ac 16 350 5 White Blood Count 7.1 x10^3/uL (4.0-11.0) Red Blood Count 2.67 x10^6/uL (3.50-5.40) Hemoglobin 7.3 g/dL (12.0-15.5) Hematocrit 23.9 % (36.0-47.0) Mean Corpuscular Volume 90 fL (79-100) Mean Corpuscular Hemoglobin 27 pg (25-35) Mean Corpuscular Hemoglobin Concent 31 g/dL (31-37) Red Cell Distribution Width 19.2 % (11.5-14.5) Platelet Count 494 x10^3/uL (140-400) Neutrophils (%) (Auto) 85 % (31-73) Lymphocytes (%) (Auto) 7 % (24-48) Monocytes (%) (Auto) 7 % (0-9) Eosinophils (%) (Auto) 1 % (0-3) Basophils (%) (Auto) 1 % (0-3) Neutrophils # (Auto) 6.0 x10^3/uL (1.8-7.7) Lymphocytes # (Auto) 0.5 x10^3/uL (1.0-4.8) Monocytes # (Auto) 0.5 x10^3/uL (0.0-1.1) Eosinophils # (Auto) 0.1 x10^3/uL (0.0-0.7) Basophils # (Auto) 0.0 x10^3/uL (0.0-0.2) Sodium Level 141 mmol/L (136-145) Potassium Level 4.4 mmol/L (3.5-5.1) Chloride Level 105 mmol/L (98-107) Carbon Dioxide Level 26 mmol/L (21-32) Anion Gap 10 (6-14) Blood Urea Nitrogen 29 mg/dL (7-20) Creatinine 0.6 mg/dL (0.6-1.0) Estimated GFR (Cockcroft-Gault) 98.8 Glucose Level 188 mg/dL (70-99) Calcium Level 9.6 mg/dL (8.5-10.1) Medications Active Scripts Medications Dose Route/Sig Max Daily Dose Days Date Category Lopressor (Metoprolol Tartrate) 100 Mg Tablet 25 Mg PEG TID 10/22/21 Reported Azithromycin Tablet (Azithromycin) 250 Mg Tablet 1 Tab PEG HS 10/22/21 Reported Keppra (Levetiracetam) 100 Mg/1 Ml Solution 7.5 Ml PEG BID 10/22/21 Reported Atorvastatin Calcium 80 Mg Tablet 1 Tab PO DAILY 10/22/21 Reported Modafinil 200 Mg Tablet 1 Tab PO DAILY 10/22/21 Reported Eliquis (Apixaban) 5 Mg Tablet 1 Tab BID 10/22/21 Reported Nitrofurantoin [place]-Mcr 100 Mg (Nitrofurantoin Monohyd/M-Cryst) 100 Mg Capsule 1 Cap PO BID 10/22/21 Reported Keflex (Cephalexin) 500 Mg Capsule 1 Cap PO TID 7 06/21/21 Rx Duoneb 0.5-3(2.5) Mg/3 Ml (Albuterol/Ipratropium) 3 Ml Ampul.neb 3 Ml NEB RTQID 30 04/02/21 Rx Amox Tr-K Clv 400-57/5 Susp (Amoxicillin/Potassium Clav) 400 Mg/5 Ml Susp.recon 10 Ml PEG Q12HR 7 04/02/21 Rx Cozaar (Losartan Potassium) 25 Mg Tablet 25 Mg PO DAILY 02/28/21 Reported Spironolactone 25 Mg Tablet 25 Mg PEG BID 07/04/19 Reported [baclofen pump] 0 MC 07/04/19 Reported Probiotic (Lactobacillus Combo No.10) 1 Each Capsule 1 Cap PEG DAILY 07/04/19 Reported Multivitamins With Minerals (Multivitamin With Minerals) 1 Each Tablet 0.5 Cap PO PEG 07/04/19 Reported Pepcid (Famotidine) 20 Mg Tablet 20 Mg PEG DAILYWSUP 07/04/19 Reported Vitamin C (Ascorbic Acid) 500 Mg Capsule.er 500 Mg PEG DAILY 07/04/19 Reported Atorvastatin Calcium 80 Mg Tablet 80 Mg PEG HS 11/01/18 Reported Probiotic Plus & Cranberry Cap (Cran/C/B.coag/Fos/L.acid/L.rha) 1 Each Capsule 1 Each PEG DAILY 01/30/17 Reported Keppra (Levetiracetam) 500 Mg Tablet 750 Mg PEG BID 01/30/17 Reported Xopenex (Levalbuterol Hcl) 0.63 Mg/3 Ml Vial.neb 1 Vial NEB TID 12/27/14 Reported Valium (Diazepam) 2 Mg Tablet 2 Mg PEG TID 10/11/13 Reported Spiriva (Tiotropium Shushan) 18 Mcg Cap.w.dev 18 Mcg IH DAILY 07/28/13 Reported Paxil (Paroxetine Hcl) 10 Mg/5 Ml Oral.susp 10 Mg PEG DAILY 07/28/13 Reported Baclofen 10 Mg Tablet 10 Mg PEG TID 07/28/13 Reported Impression . IMPRESSION: 1. Chronic respiratory failure. 2. Constipation. 3. CT with gallstones, no obstruction. 4. Status post previous colectomy. 5. Status post PEG and ostomy. Plan . Respiratory status remains compensated Continue assist-control Discussed with Dr. Demetri Maravilla to discharge from my standpoint of view CHRISTOPHER JAMISON MD Oct 25, 2021 08:08
[2021-10-25] MEDS: SENNOSIDES/DOCUSATE 8.6/50MG TABLET. PO SCH (08:19)
[2021-10-25] MEDS: MULTIVITAMINS,THERAPEUTIC 5 ML ORAL LIQUID. PEG SCH (08:19)
[2021-10-25] MEDS: CIPROFLOXACIN HCL 250 MG TABLET. PEG SCH (08:19)
[2021-10-25] MEDS: APIXABAN 5 MG TABLET. FT SCH (08:19)
[2021-10-25] MEDS: diazePAM 2 MG TABLET PEG SCH ×2 (08:19→14:55)
[2021-10-25] MEDS: BACLOFEN 10 MG TABLET. PEG SCH ×2 (08:19→14:55)
[2021-10-25] MEDS: PARoxetine 10 MG TABLET PEG SCH (08:19)
[2021-10-25] MEDS: SPIRONOLACTONE 25 MG TABLET PEG SCH (08:20)
[2021-10-25] MEDS: MODAFINIL PO SCH (08:20)
[2021-10-25] MEDS: LOSARTAN POTASSIUM 25 MG TABLET. PEG SCH (08:20)
[2021-10-25] MEDS: levETIRAcetam 500 MG/5 ML ORAL SOLUTION. PEG SCH (08:22)
--- NOTE | 2021-10-25 10:11 | PDOC ---
Date of Service: DATE: 10/25/21 TIME: 09:59 Subjective: Subjective: 's concern is the she no longer is passing stool from rectum though is passing stool through cecostomy in bag - previously had a tube there since 1996, Dr. Sanabria suggested adding the bag due to skin breakdown, then tube fell out recently - he tried to put back in (given okay to try at [facility]) but not successful. Also c/o G tube tip is loose. Wants trach and G tube replaced. Asks if she has a blockage. Nurse present, says after enema through ostomy, water from rectum. Objective: Objective: After I saw, Dr. Mosquera called - wondering about replacing troublesome part of G tube. Vital Signs: Vital Signs Date Time Temp Pulse Resp B/P (MAP) Pulse Ox O2 Delivery O2 Flow Rate FiO2 10/25/21 07:53 100 Ventilator 10/25/21 06:00 66 22 87/49 (62) 10/25/21 04:00 97.5 97.5 PE: GEN: chronically ill LUNGS: trach/vent HEART: RRR ABD: large, soft, small amount of soft brown stool in ostomy bag NEURO/PSYCH: does not respond during exam A/P: H/o constipation w/ ostomy - significant stool not mention on recent CT MS, chronic resp failure w/ trach and G tube Chronic anemia on Eliquis, UTI -- Defer to surgery re: tube/trach replacements - G tube unable to be replaced w/ endoscopy. Significant time spent with - per CT, no blockage or perforation. Okay for G tube feeds per GI. Reviewed w/ Dr. Malcolm after long discussion w/ - continue to treat constipation - enemas PRN, Relistor, suppositories, etc. Unfortunately Amitiza I don't think can be given through G tube. Justicifation of Admission Dx: Justifications for Admission: Justification of Admission Dx: N/A MAYI MCKEON Oct 25, 2021 10:11
[2021-10-25] MEDS ORDERED: BISACODYL 10 MG SUPP.RECT. PR PRN (10:15)
[2021-10-25] MEDS ORDERED: METHYLNALTREXONE 12 MG/0.6 ML VIAL. SQ ONE (10:15)
--- NOTE | 2021-10-25 10:56 | NUR ---
SS following up with discharge planning. SS reviewed pt chart and discussed with pt RN. Pt is currently on the vent at 30%. Dr. Giron consulted. Pt needing Baclofen Pump refills at home. Referral being sent to [facility], ; fax [phone], for home Baclofen fills. Pt is current on services with [facility], ; fax [phone]. Discharge orders and referral sent to [facility] on 10/24/2021. Discharge plan is currently to home when medically ready. SS will continue to follow for discharge planning. Addendum: 10/25/21 at 1358 by NIEVES MEDINA Discharge orders received. Pt will discharge today and return to home at 1630 via [facility] transport, . Pt's RN notified. Packet and ambulance form on the chart.
--- NOTE | 2021-10-25 11:49 | RAD ---
Single view of the chest. 10/25/2021 10:52 AM Indication: Tracheostomy placement. Comparison: Chest CT September 06, 2021 Findings: Tracheostomy tube in place with tip projecting approximately 4 cm above the inés. No pneu mothorax. Right basilar consolidation is similar to comparison studies likely representing atelectasi s possibly with minimal underlying effusion. Atelectasis or trace effusion in left lung base also not ed. No other new infiltrate is seen. No acute osseous changes are noted. IMPRESSION: 1.Tracheostomy tube in place with tip projecting approximately 4 cm above the inés. 2. Similar appearing basilar opacities likely representing atelectasis with possible trace underlying effusions Electronically signed by: Nicolas Charles MD (10/25/2021 11:47 AM) [id number]
--- NOTE | 2021-10-25 12:16 | PDOC ---
[employer] PROGRESS NOTE Date of Service DOS: DATE: 10/25/21 TIME: 12:15 Chief Complaint Chief Complaint Constipation History of the following; Advanced multiple sclerosis, tracheostomy, respiratory failure, previous pneumonia, seizures, hyperlipidemia, anxiety, hypertension, AFib, urinary incontinence, tracheostomy, G-tube, cecostomy tube, right hemicolectomy, baclofen pump. History of Present Illness History of Present Illness 10/25/2021 Patient seen and examined She seems to be at her baseline Discussed with RN Chart reviewed Discussed with her Maximino at length I called the nurse practitioner for general surgery and I also called nurse practitioner for GI Discussed with case management 10/24/2021 Patient seen and examined She is in the ICU on the vent via tracheostomy AC/16/350/30 percent with 5 of PEEP Her PEG looks clean dry and intact Her trach looks clean dry and intact Has a Smalls to bedside drainage We have managed to get her bowels to move and her ostomy seems to be working well Discussed with RN Chart reviewed She is still on Clinimix We hope to change that back to her PEG feeds later today Discussed with case management Plans to going discharge this afternoon Vitals/I&O Vitals/I&O: Vital Signs Date Time Temp Pulse Resp B/P (MAP) Pulse Ox O2 Delivery O2 Flow Rate FiO2 10/25/21 11:56 98 Ventilator 10/25/21 06:00 66 22 87/49 (62) 10/25/21 04:00 97.5 97.5 I & O 10/24/21 10/24/21 10/25/21 15:00 23:00 07:00 Intake Total 60 ml 1700 ml Output Total 350 ml 350 ml 775 ml Balance -350 ml -290 ml 925 ml Physical Exam General: Other (opens eyes) Lungs: Clear Abdomen: Soft, Other (ostomy has small amount of stool in bag) Assessment and Plan Assessmemt and Plan Problems Medical Problems: (1) Abdominal pain Status: Acute Constipation History of the following; Advanced multiple sclerosis, tracheostomy, respiratory failure, previous pneumonia, seizures, hyperlipidemia, anxiety, hypertension, AFib, urinary incontinence, tracheostomy, G-tube, cecostomy tube, right hemicolectomy, baclofen pump. Plan General surgery nurse practitioner is going to see her and see if we can change out the PEG tube before discharge Hope to redischarge this afternoon Discharge see dictation Comment Review of Relevant I have reviewed the following items lucila (where applicable) has been applied. Medications: Current Medications Medications (Trade) Dose Ordered Sig/Lidia Route PRN Reason Start Time Stop Time Status Last Admin Dose Admin Ciprofloxacin (Cipro) 250 mg BID PEG 10/24/21 14:00 10/30/21 21:01 10/25/21 08:19 Methylnaltrexone Wideman (Relistor) 12 mg 1X ONCE SQ 10/25/21 10:15 10/25/21 10:34 DC 10/25/21 11:46 Justifications for Admission Other Justification RIGOBERTO VORA III DO Oct 25, 2021 12:16
[2021-10-25] MEDS: FAMOTIDINE 20 MG TABLET. PEG SCH (17:00)
--- NOTE | 2021-10-25 17:40 | NUR ---
Pt discharged around 1740 via [facility] transportation. Vitals stable upon discharge, all belongings taken with patient. No complications.
--- NOTE | 2021-10-28 10:46 | RAD ---
Replacement of percutaneous gastrostomy tube the bedside October 25, 2021 Discussion/ impression: The patient's percutaneous gastrostomy tube was replaced with a similar 18 Bengali gastros anali tube at the bedside without complication. Electronically signed by: Nicolas Charles MD (10/28/2021 10:44 AM) [id number]
== END 2021-10-25 16:30 | disposition home health service (06) | DRG 391 ==
LOC: ER 15:17 → 1 WEST ICU 17:30
PROVIDERS: ADMIT Student in an Organized Health Care Education/Training Program; ATTEND Student in an Organized Health Care Education/Training Program
PROC: 5A1945Z Respiratory Ventilation, 24-96 Consecutive Hours (ICD-10-PCS; 2021-10-22)
PROC: 0BH17EZ Insertion of Endotracheal Airway into Trachea, Via Natural or Artificial Opening (ICD-10-PCS; 2021-10-22)
PROC: 0D20XUZ Change Feeding Device in Upper Intestinal Tract, External Approach (ICD-10-PCS; principal; 2021-10-25)
DX: K59.09 Other constipation (principal); G82.50 Quadriplegia, unspecified; J96.10 Chronic respiratory failure, unspecified whether with hypoxia or hypercapnia; N39.0 Urinary tract infection, site not specified; K80.20 Calculus of gallbladder without cholecystitis without obstruction; D64.9 Anemia, unspecified; E78.5 Hyperlipidemia, unspecified; F03.90 Unspecified dementia, unspecified severity, without behavioral disturbance, psychotic disturbance, mood disturbance, and anxiety; F41.9 Anxiety disorder, unspecified; G35 Multiple sclerosis; Z96.89 Presence of other specified functional implants; F32.A Depression, unspecified; K21.9 Gastro-esophageal reflux disease without esophagitis; I10 Essential (primary) hypertension; I48.91 Unspecified atrial fibrillation; Z82.49 Family history of ischemic heart disease and other diseases of the circulatory system; Z83.3 Family history of diabetes mellitus; Z87.01 Personal history of pneumonia (recurrent); Z90.49 Acquired absence of other specified parts of digestive tract; Z93.0 Tracheostomy status; Z93.1 Gastrostomy status; Z93.3 Colostomy status; Z93.50 Unspecified cystostomy status; Z79.899 Other long term (current) drug therapy; Z91.041 Radiographic dye allergy status
CPT/HCPCS: 31720; 36415; 36600; 70450; 71045; 74177; 80048; 80053; 81001; 82805; 83605; 83690; 83880; 84443; 85025; 85610; 85730; 87077; 87086; 87186; 94002; 94003; 94640; 94760; 96360; J2212; J3490; J7030; J7040; Q9967; 99285-25; G0378